=== PATIENT | female | born 1940 | race Caucasian/White ===

== ENCOUNTER → 2025-07-03 05:00 | Outpatient (REF) | payer MEDICARE, SELFPAY ==
[2025-07-03 09:32] LABS: Hematocrit 33.6 % (37-47); Hemoglobin 11.4 g/dL (12.0-15.0); Mean Corp Hgb Conc 33.9 g/dL (32-36); Mean Corpuscular Volume 91.8 fL (81-99); Mean Platelet Vol. 9.2 fl (6.2-12.0); Platelet Count 249 K/mm3 (150-450); RBC Distribution Width CV 14.0 % (11.6-14.6); RBC Distribution Width SD 47.1 fl (35.1-43.9); Red Blood Count 3.66 M/mm3 (4.2-5.4); White Blood Count 7.7 K/mm3 (4.4-11.0)
[2025-07-03 10:02] LABS: AST(SGOT) 18 U/L (<=31); Alanine Aminotransfer ALT/SGPT 10 U/L (<=34); Albumin, Serum 3.5 g/dL (3.4-4.8); Alkaline Phosphatase 119 U/L (35-104); Anion Gap 11 (5-15); BUN 17 mg/dL (4-19); BUN/Creat Ratio 10.0 RATIO (10-20); Calcium,Total 8.9 mg/dL (7.6-11.0); Carbon Dioxide 25.8 mmol/L (21.0-32.0); Chloride 101 mmol/L (98-108); Globulin 2.6 g/dL (2.2-4.2); Glucose 86 mg/dL (70-99); Potassium 3.3 mmol/L (3.3-5.1); Vitamin D,25 Hydroxy 26.6 ng/mL (30-100)
== END ==
LOC: OLS.ACW200 05:00
PROVIDERS: Visit Provider Family Medicine
DX: I63.81 Other cerebral infarction due to occlusion or stenosis of small artery (principal); R13.12 Dysphagia, oropharyngeal phase; E78.5 Hyperlipidemia, unspecified; D64.9 Anemia, unspecified
CPT/HCPCS: 36415; 80053; 82306; 83036; 84443; 85027

== ENCOUNTER → 2025-09-10 04:00 | Outpatient (REF) | payer MEDICARE, SELFPAY ==
--- OUTSIDE RECORDS SUMMARY | 2025-09-10 04:12 | XMS RPT_ITS | CCD ---
Author Organization [facility] CliniSyde Care Team Providers Care Protective Signal Installer Name Role Phone MONROE WU Unavailable Unavailable MONROE WU Unavailable Unavailable NO REFERRING DR Unavailable Unavailable YOKASTA WU Unavailable YOKASTA Montero Unavailable Charlene Celis MD Primary Care Provider SONU FERNANDEZ~[id number], SONU CHARLES Admitting Unavailable CHARLENE WALKER MD Primary Care Unavailable SONU FERNANDEZ~[id number], SONU CHARLES Attending Unavailable SONU FERNANDEZ~[id number], SONU CHARLES Attending Unavailable SONU FERNANDEZ, CHARLENE Primary Care Unavailable SONU FERNANDEZ~[id number], SONU CHARLES Admitting Unavailable SONU FERNANDEZ~[id number], SONU CHARLES Attending Unavailable CHARLENE WALKER MD Primary Care Unavailable SONU FERNANDEZ~[id number], SONU CHARLES Admitting Unavailable SONU FERNANDEZ~[id number], SONU CHARLES Attending Unavailable SONU FERNANDEZ, CHARLENE Primary Care Unavailable SONU FERNANDEZ~[id number], SONU CHARLES Admitting Unavailable Anthony Webster RN Unavailable Unavailable Bhujel, Mon Unavailable Unavailable Anthony Webster RN Unavailable Unavailable Bhujel, Mon Unavailable Unavailable Charlene Walker MD Primary Care Provider Marcelino Carrizales Attending Unavailable CHARLENE WALKER Primary Care Unavailable JAS FLORES Admitting Unavailable JADE GOODE Consulting Unavailable BITA HOLLAND Attending Unavailable KIARA MARIO Consulting Unavailable CAMILLE GOMEZ Consulting Unavailable RAQUEL LORD Consulting Unavailable CHARLENE WALKER Primary Care Unavailable CHET DAY Attending Unavaila KEYANNA Saleem Attending Unavailable KEYANNA CHARLES Referring Unavailable CHARLENE WALKER Primary Care Unavailable HUMAIRA BELL Attending Unavailable CHET DAY Referring Unavaila ble CHARLENE WALKER Primary Care Unavailable CHARLENE WALKER Primary Care Unavailable ADELINE LY Admitting Unavailable BITA HOLLAND Attending Unavailable Medications Current Medications Medication Drug Class(es) Dates Sig (Normalized) Sig (Original) cefdinir 300 mg oral capsule (7 sources) Cephalosporin Antibacterial Start: 01-06-2024 End: 01-10-2024 take 1 capsule by mouth twice daily cefdinir (Omnicef) 300 MG capsule Take 1 capsule (300 mg) by mouth 2 times daily for 8 doses. 8 capsule 0 01/06/2024 01/10/2024 Active ticagrelor 90 mg oral tablet (4 sources) Start: 06-06-2025 End: 06-06-2026 Completed/Discontinued Medications Medication Drug Class(es) Dates Sig (Normalized) Sig (Original) Acetaminophen (4 sources) Start: 04-18-2025 End: 04-20-2025 take 1 tablet by mouth every six hours as needed for pain and fever acetaminophen (Tylenol) tablet 650 mg Start: 12-29-2023 End: 12-30-2023 take 1 tablet by mouth every six hours as needed for pain and fever acetaminophen (Tylenol) tablet 650 mg acetaminophen 325 mg / oxyCODONE hydrochloride 5 mg oral tablet (6 sources) Opioid Agonist Start: 12-30-2023 End: 01-06-2024 take 1 tablet by mouth every six hours as needed for pain and pain 1 tablet, Oral, Every 6 hours PRN, moderate pain (4-6), severe pain (7-10), Starting on 12/31/23 at 2355, Maximum dose of acetaminophen is 4000 mg from all sources in 24 hours. amLODIPine 2.5 mg oral tablet (20 sources) Dihydropyridine Calcium Channel Kathy Start: 06-09-2025 End: 06-10-2025 Start: 04-19-2025 End: 04-20-2025 take 10 mg by mouth once daily 10 mg, Oral, Daily, Fir st dose (after last modification) on 04/19/25 at 2200 Start: 01-05-2024 End: 01-06-2024 amLODIPine (Norvasc) tablet 10 mg Start: 12-29-2023 End: 07-10-2025 amoxicillin 875 mg / clavulanate 125 mg oral tablet (8 sources) Penicillin-class Antibacterial Start: 01-04-2024 End: 01-06-2024 take 1 tablet by mouth in the morning amoxicillin-clavulanate (Augmentin) 875-125 MG tablet Take 1 tablet by mouth in the morning and 1 tablet before bedtime. Do all this for 8 doses. 8 tablet 0 01/04/2024 01/06/2024 Discontinued (Stop taking at discharge) Start: 01-04-2024 End: 01-04-2024 amoxicillin-clavulanate (Aug mentin) 875-125 MG per tablet 1 tablet Start: 12-30-2023 End: 01-09-2024 take 1 tablet by mouth twice daily amoxicillin-clavulanate (Augmentin) 875-125 MG tablet Take 1 tablet by mouth 2 times daily for 10 days. 20 tablet 0 12/30/2023 01/06/2024 Discontinued (Stop taking at discharge) ampicillin-sulbactam (Unasyn) 3,000 mg in sodium chloride 0.9 % 100 mL IVPB (Add-Partlow) (10 sources) Start: 01-04-2024 End: 01-06-2024 take 3000 mg intravenously every six hours ampicillin-sulbactam (Unasyn) 3,000 mg in sodium chloride 0.9 % 100 mL IVPB (Add-Partlow) Start: 12-31-2023 End: 01-04-2024 take 3000 mg intravenously every six hours ampicillin-sulbactam (Unasyn) 3,000 mg in sodium chloride 0.9 % 100 mL IVPB (Add-Partlow) Start: 12-31-2023 End: 12-31-2023 ampicillin-sulbactam (Unasyn ) 3,000 mg in sodium chloride 0.9 % 100 mL IVPB (Add-Partlow) Start: 12-29-2023 End: 12-30-2023 take 3000 mg intravenously every six hours ampicillin-sulbactam (Unasyn) 3,000 mg in sodium chloride 0.9 % 100 mL IVPB (Add-Partlow) Start: 12-28-2023 End: 12-28-2023 ampicillin-sulbactam (Unasyn ) 3,000 mg in sodium chloride 0.9 % 100 mL IVPB (Add-Partlow) Aspirin (20 sources) Platelet Aggregation Inhibitor, Nonsteroidal Anti-inflammatory Drug Start: 04-18-2025 End: 04-20-2025 aspirin EC tablet 81 mg Start: 01-03-2024 End: 01-06-2024 aspirin EC tablet 81 mg Start: 12-29-2023 End: 12-30-2023 take 81 mg by mouth once daily 81 mg, Oral, Daily, Fir st dose on Mon12/29/23 at 1330, Do not crush, chew, or split., , On hold since Mon12/29/2023 at 1329 until manually unheld atorvastatin 80 mg oral tabl et (13 sources) HMG-CoA Reductase Inhibitor Start: 05-26-2025 End: 06-10-2025 Start: 04-18-2025 End: 05-26-2025 bisacodyl 10 mg rectal suppository (4 sources) Stimulant Laxative Start: 05-23-2025 End: 06-10-2025 take 10 mg rectal route every twenty-four hours as needed for constipation Start: 04-18-2025 End: 04-20-2025 take 10 mg rectal route every twenty-fou r hours as needed for constipation calcium chloride 0.0014 meq/ ml / potassium chloride 0.004 meq/ml / sodium chloride 0.103 meq/ml / sodium lactate 0.028 meq/ml injectable solution (4 sources) Start: 06-09-2025 End: 06-10-2025 Start: 12-31-2023 End: 12-31-2023 lactated ringers bolus 500 m L cholecalciferol 0.025 mg ora l tablet (20 sources) Vitamin D Start: 05-24-2025 End: 06-10-2025 Start: 04-18-2025 End: 04-20-2025 take 1000 [IU] by mouth once daily 1,000 Units, Oral, Daily, First dose on Mon04/18/25 at 1620 Start: 01-01-2024 End: 01-06-2024 take 1000 [IU] by mouth once daily 1,000 Units, Oral, Daily, First dose on Mon01/01/24 at 0900 Start: 12-30-2023 End: 12-30-2023 take 1000 [IU] by mouth once daily 1,000 Units, Oral, Daily, First dose on Mon12/30/23 at 0900 clopidogrel 300 mg oral tabl et (14 sources) P2Y12 Platelet Inhibitor Start: 06-05-2025 End: 06-05-2025 Start: 04-19-2025 End: 06-05-2025 1 ml dexamethasone phosphate 10 mg/ml injection (2 sources) Corticosteroid Start: 12-29-2023 End: 12-30-2023 dexAMETHasone (PF) (Decadron) injection 8 mg 0.4 ml enoxaparin sodium 100 mg/ml prefilled syringe (6 sources) Low Molecular Weight Heparin Start: 05-24-2025 End: 06-10-2025 Start: 01-01-2024 End: 01-06-2024 enoxaparin (Lovenox) syringe 40 mg Start: 12-29-2023 End: 12-30-2023 inject 40 mg by subcutaneous injection every twenty-four hours 40 mg, SubCUTAneous, Every 24 hours scheduled (Daily), First dose on Mon12/29/23 at 0900, Indication of Use: Prophylaxis-DVT/PE, Indications: Prophylaxis of Venous Thromboembolism 1 ml ePHEDrine sulfate 50 mg/ml injection (4 sources) alpha-Adrenergic Agonist, beta-Adrenergic Agonist, Norepinephrine Releasing Agent Start: 05-29-2025 End: 05-29-2025 Start: 05-29-2025 End: 05-29-2025 escitalopram 10 mg oral tabl et (19 sources) Serotonin Reuptake Inhibitor Start: 05-24-2025 End: 06-10-2025 Start: 04-18-2025 End: 04-20-2025 take 10 mg by mouth once daily 10 mg, Oral, Daily, Fir st dose on Mon04/18/25 at 1620 1 ml hydrALAZINE hydrochloride 20 mg/ml injection (12 sources) Arteriolar Vasodilator Start: 05-29-2025 End: 06-10-2025 take 10 mg intravenously every four hours as needed for hypertension Start: 05-23-2025 End: 05-23-2025 Start: 01-05-2024 End: 01-06-2024 take 10 mg intravenously every four hours as needed for hypertension hydrALAZINE (Apresoline) injection 10 mg 1 ml HYDROmorphone hydrochloride 1 mg/ml cartridge (2 sources) Opioid Agonist Start: 01-02-2024 End: 01-02-2024 HYDROmorphone (Dilaudid) injection 0.5 mg iopamidol (Isovue-370) 76 % injection 75 mL (6 sources) Start: 04-18-2025 End: 04-18-2025 take 75 mL intravenously once as needed 75 mL, IntraVENous, IMG once PRN, contrast, Starting on Mon04/18/25 at 1422, For 1 dose Start: 12-31-2023 End: 12-31-2023 iopamidol (Isovue-370) 76 % injection 75 mL Start: 12-28-2023 End: 12-28-2023 iopamidol (Isovue-370) 76 % injection 75 mL labetalol hydrochloride 5 mg /ml injectable solution (12 sources) beta-Adrenergic Kathy Start: 05-24-2025 End: 06-10-2025 Start: 04-18-2025 End: 04-20-2025 take 10 mg intravenously every four hours as needed for hypertension 10 mg, IntraVENous, Every 4 hours PRN, high blood pressure, SBP > 170 and HR > 65, Starting on 04/19/25 at 1546 levothyroxine sodium 0.112 m g oral tablet (20 sources) l-Thyroxine Start: 05-24-2025 End: 06-10-2025 Start: 04-19-2025 End: 04-20-2025 take 112 ug by mouth once daily before breakfast 112 mcg, Oral, Daily before breakfast, First dose on 04/19/25 at 0600, Tube feeding (TF) interaction, obtain physician order to manage, recommend holding TF for 30 minutes before and after dose. Start: 01-01-2024 End: 01-06-2024 take 112 ug by mouth once daily before breakfast 112 mcg, Oral, Daily before breakfast, First dose on 01/01/24 at 0600, Tube feeding (TF) interaction, obtain physician order to manage, recommend holding TF for 30 minutes before and after dose. Start: 12-30-2023 End: 12-30-2023 take 112 ug by mouth once daily before breakfast 112 mcg, Oral, Daily before breakfast, First dose on Mon12/30/23 at 0600, Tube feeding (TF) interaction, obtain physician order to manage, recommend holding TF for 30 minutes before and after dose. losartan potassium 25 mg ora l tablet (6 sources) Angiotensin 2 Receptor Kathy Start: 05-25-2025 End: 06-06-2026 meclizine hydrochloride 12.5 mg oral tablet (20 sources) Antiemetic Start: 05-24-2025 End: 06-10-2025 Start: 04-18-2025 End: 04-20-2025 take 12.5 mg by mouth once daily 12.5 mg, Oral, Daily, First dose on Mon04/18/25 at 1620 Start: 01-01-2024 End: 01-06-2024 take 12.5 mg by mouth once daily 12.5 mg, Oral, Daily, First dose on Mon01/01/24 at 0800, Indications: Dizziness Start: 12-30-2023 End: 12-30-2023 meclizine (Antivert) tablet 25 mg meclizine (Antiv ert) 25 MG tablet Take 12.5 mg by mouth in the morning. Suspended 1 ml morphine sulfate 4 mg/ml cartridge (6 sources) Opioid Agonist Start: 01-01-2024 End: 01-01-2024 morphine injection 4 mg Start: 12-28-2023 End: 12-30-2023 take 2 mg intravenously every four hours as needed for pain morphine injection 2 mg 1 ml naloxone hydrochloride 0.4 mg/ml injection (4 sources) Opioid Antagonist Start: 12-31-2023 End: 01-06-2024 naloxone (Narcan) injection 0.4 mg Start: 12-29-2023 End: 12-30-2023 naloxone (Narcan) injection 0.4 mg 24 hr nicotine 0.875 mg/hr transdermal system (2 sources) Cholinergic Nicotinic Agonist Start: 04-18-2025 End: 04-20-2025 apply 1 dose transdermal route once daily at bedtime 1 patch, TransDERmal, Administer over 24 Hours, Daily, First dose on Mon04/18/25 at 1615, Apply new patch to nonhairy, clean, dry skin on the upper body or upper outer arm. Rotate patch sites. Notify Pharmacy if patient or provider prefers patch to be removed at bedtime and replaced in the morning. ondansetron 4 mg disintegrating oral tablet (9 sources) Serotonin-3 Receptor Antagonist Start: 05-23-2025 End: 06-10-2025 take 4 mg by mouth every eight hours as needed for nausea and vomiting Start: 01-04-2024 End: 01-11-2024 take 1 tablet by mouth every eight hours as needed for nausea and vomiting ondansetron ODT (Zofran-ODT) 4 MG disintegrating tablet Take 1 tablet (4 mg) by mouth every 8 hours as needed for nausea or vomiting for up to 7 days. 20 tablet 0 01/04/2024 01/11/2024 Active Start: 12-31-2023 End: 12-31-2023 ondansetron (Zofran) injecti on 4 mg Start: 12-28-2023 End: 12-28-2023 ondansetron (Zofran) injecti on 4 mg ondansetron ODT (Zofran-ODT) disintegrating tablet 4 mg (6 sources) Start: 04-18-2025 End: 04-20-2025 take 1 tablet by mouth every eight hours as needed for nausea and vomiting ondansetron ODT (Zofran-ODT) disintegrating tablet 4 mg Start: 12-31-2023 End: 01-06-2024 take 1 tablet by mouth every eight hours as needed for nausea and vomiting ondansetron ODT (Zofran-ODT) disintegrating tablet 4 mg Start: 12-29-2023 End: 12-30-2023 take 1 tablet by mouth every eight hours as needed for nausea and vomiting ondansetron ODT (Zofran-ODT) disintegrating tablet 4 mg pantoprazole 40 mg delayed release oral tablet (2 sources) Proton Pump Inhibitor Start: 05-24-2025 End: 06-10-2025 polyethylene glycol 3350 18133 mg powder for oral solution (6 sources) Osmotic Laxative Start: 05-23-2025 End: 06-10-2025 take 17 g by mouth every twenty-four hours as needed for constipation Start: 12-31-2023 End: 01-06-2024 take 17 g by mouth every twenty-four hours as needed for constipation polyethylene glycol (PEG) 3350 (Miralax) packet 17 g Start: 12-29-2023 End: 12-30-2023 take 17 g by mouth every twenty-four hours as needed for constipation 17 g, Oral, Daily PRN, constipation, Starting on Mon12/29/23 at 0414, 1st line for treatment of constipation - give scheduled if no bowel movement in past 24 hours. potassium bicarbonate 25 meq effervescent oral tablet (2 sources) Start: 06-02-2025 End: 06-02-2025 microencapsulated potassium chloride 10 meq extended release oral tablet (10 sources) Start: 06-03-2025 End: 06-03-2025 Start: 05-31-2025 End: 05-31-2025 Start: 05-29-2025 End: 05-29-2025 Start: 04-20-2025 End: 04-20-2025 take 1 [oz_av] by mouth once 40 mEq, Oral, Once, On Flores 04/20/25 at 0400, For 1 dose, Dissolve each packet in 4 ounces of water = 5 mEq per 1 oz fluid., Indications: Hypokalemia Start: 04-20-2025 End: 04-20-2025 40 mEq, IntraVENous, at 125 mL/hr, Administer over 4 Hours, Once, On Mon04/20/25 at 0400, For 1 dose, Max infusion rate = 10 mEq/hr predniSONE 10 mg oral tablet (6 sources) Start: 12-30-2023 End: 01-09-2024 take 5 tablets by mouth every other day, then take 4 tablets by mouth every other day, then take 3 tablets by mouth every other day, then take 2 tablets by mouth every other day, then take 1 tablet by mouth every other day predniSONE (Deltasone) 10 MG tablet Take 5 tablets (50 mg) by mouth every other day for 2 days, THEN 4 tablets (40 mg) every other day for 2 days, THEN 3 tablets (30 mg) every other day for 2 days, THEN 2 tablets (20 mg) every other day for 2 days, THEN 1 tablet (10 mg) every other day for 2 days. 15 tablet 0 12/30/2023 01/06/2024 Discontinued (Stop taking at discharge) 5 ml sodium chloride 9 mg/ml injection (20 sources) Start: 05-23-2025 End: 06-10-2025 Start: 05-23-2025 End: 06-10-2025 take 5-40 mL intravenously every twelve hours Start: 04-18-2025 End: 08-02-2025 take 50 mL intravenously every hour 50 mL/hr, IntraVENous, Continuous, Starting on Mon04/18/25 at 1300 Start: 04-18-2025 End: 04-20-2025 take 5-40 mL intravenously every twelve hours 5-40 mL, IntraVENous, Every 12 hours, First dose on Mon04/18/25 at 1300, For Line Patency: Peripheral IV = 5 mL; Midline or Central Line = 10 mL/lumen. If following IV push medication, administer flush at same rate as the IV push. Flush volume is determined by type of infusion therapy being given. For non-viscous solutions use: Peripheral IV = 5 mL Midline or Central Line = 10 mL/lumen For viscous solutions (i.e. blood components, parenteral nutrition, contrast media, or after obtaining blood sample) use: Peripheral IV = 10 mL Midline or Central Line = 20 mL/lumen Start: 04-18-2025 End: 04-20-2025 take 100 mL intravenously every hour as needed, then take 20 mL intravenously every hour as needed 5-250 mL/hr, IntraVENous, PRN, if patient receiving piggyback infusions and maintenance fluids are not ordered OR KVO fluids to protect IV site / prevent frequent line interruptions / long duration, Starting on Mon04/18/25 at 1256, For piggyback infusion, administer at same rate as piggyback for a total of 25 mL. Enter 25 mL into dose field and piggyback rate into rate field of order. If piggyback is infusing at a rate less than 100 mL/hr, enter 25 mL into dose field and 100 mL/hr into rate field of order. For KVO fluids, enter rate of 20 mL/hr or less into rate field of order. Start: 04-18-2025 End: 04-20-2025 5-40 mL, IntraVENous, PRN, l ine care, After every IV line use, Starting on Mon04/18/25 at 1256, For Line Patency: Peripheral IV = 5 mL; Midline or Central Line = 10 mL/lumen. If following IV push medication, administer flush at same rate as the IV push. Flush volume is determined by type of infusion therapy being given. For non-viscous solutions use: Peripheral IV = 5 mL Midline or Central Line = 10 mL/lumen For viscous solutions (i.e. blood components, parenteral nutrition, contrast media, or after obtaining blood sample) use: Peripheral IV = 10 mL Midline or Central Line = 20 mL/lumen Start: 12-31-2023 End: 01-06-2024 sodium chloride 0.9 % infusi on Start: 12-31-2023 End: 01-06-2024 sodium chloride 0.9% (NS) fl ush 10 mL Start: 12-28-2023 End: 12-28-2023 sodium chloride 0.9 % bolus 1,000 mL (2 sources) Start: 05-30-2025 End: 05-30-2025 (4 sources) Start: 05-30-2025 End: 05-30-2025 Start: 05-23-2025 End: 05-23-2025 (2 sources) Start: 05-24-2025 End: 05-24-2025 (6 sources) Start: 05-24-2025 End: 06-10-2025 take 10 mg by mouth every six hours as needed for nausea and vomiting [Order 1 Start] Name: prochlorperazine (Compazine) tablet 10 mg Signed Summary: 10 mg, Oral, Every 6 hours PRN, nausea, vomiting, 2nd line, Starting on 05/24/25 at 1637 [Order 1 End] [Order 2 Start] Name: prochlorperazine (Compazine) injection 10 mg Signed Summary: 10 mg, IntraVENous, Every 6 hours PRN, nausea, vomiting, Starting on 05/24/25 at 1637, Give IV if patient is unable to take orally. Give IM if patient is unable to take orally and does not have IV access. [Order 2 End] [Order 3 Start] Name: prochlorperazine (Compazine) suppository 25 mg Signed Summary: 25 mg, Rectal, Every 12 hours PRN, nausea, vomiting, Starting on 05/24/25 at 1637, Give TX if patient is unable to take orally or receive by injection. [Order 3 End] Start: 05-24-2025 End: 06-10-2025 [Order 1 Start] Name: aspiri n EC tablet 81 mg Signed Summary: 81 mg, Oral, Daily, First dose on 05/24/25 at 0900, Do NOT administer if bleed present on follow up CT-Head. Do not crush, chew, or split. [Order 1 End] [Order 2 Start] Name: aspirin suppository 300 mg Signed Summary: 300 mg, Rectal, Daily, First dose on 05/24/25 at 0900, Do NOT administer if bleed present on follow up CT-Head. Use suppository if NPO or failed swallow screen. [Order 2 End] Start: 05-24-2025 End: 06-10-2025 take 650 mg by mouth every six hours as needed for pain and fever and pain and pain [Order 1 Start] Name: acetaminophen (Tylenol) tablet 650 mg Signed Summary: 650 mg, Oral, Every 6 hours PRN, mild pain (1-3), fever, moderate pain (4-6), severe pain (7-10), For temp greater than 100.4 F (38 C), Starting on 05/24/25 at 0317, Maximum dose of acetaminophen is 4000 mg from all sources in 24 hours. [Order 1 End] [Order 2 Start] Name: acetaminophen (Tylenol) suppository 650 mg Signed Summary: 650 mg, Rectal, Every 6 hours PRN, fever, For temp greater than 100.4 F (38 C), Starting on 05/24/25 at 0317, Administer if oral route cannot be used. Maximum dose of acetaminophen is 4000 mg from all sources in 24 hours. 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] Onset: 04-18-2025 04-18-2025 Chronic Aortic; peripheral; and visceral artery aneurysms (4 sources) Penetrating ulcer of aorta; Translations: [Aortic aneurysm of unspecified site, without rupture] Onset: 05-23-2025 05-23-2025 Chronic Blindness and vision defects (15 sources) Visual impairment; Translations: [Unqualified visual loss, left eye, normal vision right eye] Onset: 04-17-2025 04-17-2025 Chronic Blindness and vision defects (18 sources) Sudden visual loss of left eye; Translations: [Sudden visual loss, left eye] Onset: 04-18-2025 04-18-2025 Episodic Essential hypertension (20 sources) Hypertensive disorder; Translations: [Essential (primary) hypertension] Onset: 01-01-2024 01-01-2024 Chronic Hypertension with complications and secondary hypertension (4 sources) Renovascular hypertension; 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] Onset: 05-23-2025 06-05-2025 Chronic Occlusion or stenosis of precerebral arteries (7 sources) Bilateral stenosis of carotid arteries; Translations: [Occlusion and stenosis of bilateral carotid arteries] Onset: 05-23-2025 05-27-2025 Chronic Other connective tissue disease (7 sources) Neurological symptom; Translations: [Unspecified symptoms and signs involving the nervous system] Onset: 05-24-2025 05-24-2025 Episodic Other connective tissue disease (2 sources) Unspecified symptoms and signs involving the nervous system; Translations: [Unspecified symptoms and signs involving the nervous system] Onset: 05-23-2025 Episodic Other eye disorders (2 sources) Ischemic optic neuropathy, right eye; Translations: [Ischemic optic neuropathy, right eye] Onset: 05-23-2025 Chronic Other liver diseases (2 sources) Abnormal levels of other serum enzymes; Translations: [ABNORMAL LEVELS OTHER SERUM ENZYMES] Onset: 03-24-2025 Episodic Retinal detachments; defects; vascular occlusion; and retinopathy (12 sources) Occlusion of left central retinal artery; Translations: [Central retinal artery occlusion, left eye] Onset: 04-18-2025 04-18-2025 Chronic Unclassified (1 source) Resistant hypertension; 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] Onset: 01-01-2024 Past or Other Problems Problem Classification Problem Date Documented Da te Episodic/Chronic Nonspecific chest pain (3 sources) Other chest pain; Translations: [OTHER CHEST PAIN] Onset: 05-17-2017 Episodic Other lower respiratory disease (2 sources) Shortness of breath; Translations: [SHORTNESS OF BREATH] Onset: 01-03-2025 Episodic Other lower respiratory disease (1 source) Dyspnea, unspecified; Translations: [DYSPNEA UNSPECIFIED] Onset: 01-03-2025 Episodic Screening or history of mental health and substance abuse (1 source) Personal history of nicotine dependence; Translations: [PERSONAL HISTORY OF ERIBERTO] Onset: 05-17-2017 Episodic Skin and subcutaneous tissue infections (20 sources) Cellulitis of submental space ; Translations: [Cellulitis of face] Onset: 12-29-2023 12-29-2023 Episodic Unclassified (1 source) Resistant hypertension; 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 Martha mentions that Diana is in [facility]; care team updated. [facility] 36on 07-04-2025 36 Left another message. [facility] 36on 07-03-2025 36 Left message with Roman liu checking in with her and Diana. Made her aware of PO visit needed with Dr. Vitale now that Diana is discharged from [facility]. Advised to call the office back to schedule. S/p left CEA 05/29/25 [facility] [id number] 06-12-2025 [id number] [facility] [id number] 06-10-2025 [id number] [facility] [id number] Jail/SNF - [address] [id number] Patient/Family Choice [facility] [phone] [facility] [id number] MAR transmitted to [facility] via [employer] per TCC request. Electronically signed by EMMA [facility] BASIC METABOLIC PANELon 09-2 Anion gap [Moles/Vol] 5 mmol/L Normal 3-13 [facility] Comment on above: Performed By: #### L AB113, [id number], LAB15 ####Spun Paste Machine Operator: SHAYY MARROQUIN ([phone])[facility] ([address] Calcium [Mass/Vol] 8.5 mg/dL Low 8.8-10.0 [facility] Comment on above: Performed By: #### L AB113, [id number], LAB15 ####Spun Paste Machine Operator: SHAYY MARROQUIN ([phone])[facility] ([facility])[address] [place] [address] Chloride [Moles/Vol] 106 mmol/L Normal 98-107 [facility] Comment on above: Performed By: #### L AB113, [id number], LAB15 ####Spun Paste Machine Operator: SHAYY MARROQUIN ([phone])[facility])[address] [place] [address] CO2 [Moles/Vol] 23 mmol/L Normal 23-31 [facility] Comment on above: Performed By: #### L AB113, [id number], LAB15 ####Spun Paste Machine Operator: SHAYY MARROQUIN ([phone])[facility])[address] [place] [address] Creatinine [Mass/Vol] 1.33 mg/dL High 0.57-1.11 [facility] Comment on above: Performed By: #### L AB113, [id number], LAB15 ####Spun Paste Machine Operator: SHAYY MARROQUIN ([phone])[address] GLOMERULAR FILTRATION RATE ML/MIN/1.73 SQ M.PREDICTED 40.0 mL/min/1.73m*2 Low >60.0 [facility] Comment on above: Result Comment: Calc ulation based on the Chronic Kidney Disease Epidemiology Collaboration (CKD-EPI) equation refit without adjustment for race Performed By: #### L AB113, [id number], LAB15 ####Spun Paste Machine Operator: SHAYY MARROQUIN ([phone])[facility])[address] [place] [address] Glucose [Mass/Vol] 82 mg/dL Normal 82-115 [facility] Comment on above: Performed By: #### L AB113, [id number], LAB15 ####Spun Paste Machine Operator: SHAYY MARROQUIN ([phone])[facility])[address] [place] [address] Potassium [Moles/Vol] 3.7 mmol/L Normal 3.5-5.1 [facility] Comment on above: Result Comment: [facility] potassium values may be up to 0.5 mmol/L lower than serum values. Performed By: #### L AB113, [id number], LAB15 ####Spun Paste Machine Operator: SHAYY MARROQUIN ([phone])[facility] ([facility])[address] [place] [address] Sodium [Moles/Vol] 134 mmol/L Low 136-145 [facility] Comment on above: Performed By: #### L AB113, [id number], LAB15 ####Spun Paste Machine Operator: SHAYY MARROQUIN ([phone])[facility] ([facility])[address] [place] [address] Urea nitrogen [Mass/Vol] 21 mg/dL Normal - [facility] Comment on above: Performed By: #### L AB113, [id number], LAB15 ####Spun Paste Machine Operator: SHAYY MARROQUIN ([phone])[facility] ([facility])[address] [place] [address] Basic metabolic 1998 panelon 06-10-2025 Anion gap [Moles/Vol] 5 mmol/L 3 - 13 mmol/L [facility] Calcium [Mass/Vol] 8.5 mg/dL Low 8.8 - 10. 0 mg/dL [facility] Chloride [Moles/Vol] 106 mmol/L 98 - 10 7 mmol/L [facility] CO2 [Moles/Vol] 23 mmol/L 23 - 31 mmol/L [facility] Creatinine [Mass/Vol] 1.33 mg/dL High 0.57 - 1.11 mg/dL [facility] GFR/1.73 sq M.predicted (S/P/Bld) [Vol rate/Area] 40 mL/min Low - PINF [facility] Glucose [Mass/Vol] 82 mg/dL 82 - 115 mg/dL [facility] Interpretation and review of laboratory results Abnormal [facility] Potassium [Moles/Vol] 3.7 mmol/L 3.5 - 5.1 mmol/L [facility] Sodium [Moles/Vol] 134 mmol/L Low 136 - 145 mmol/L [facility] Urea nitrogen [Mass/Vol] 21 mg/dL 9 - 23 mg/dL [facility] CBC W Auto Differential pane l (Bld)on 06-10-2025 Basophils (Bld) [#/Vol] 0 10*3/uL 0.0 - 0.2 10*3/uL [facility] Basophils/100 WBC (Bld) 0.5 % 0.0 - 2.0 % [facility] Eosinophils (Bld) [#/Vol] 0.4 10*3/uL 0.0 - 0.5 10*3/uL [facility] Eosinophils/100 WBC (Bld) 5.3 % 0.0 - 6.0 % [facility] Erythrocyte distribution width (RBC) [Ratio] 13.3 % 11.5 - 15.0 % [facility] Hematocrit (Bld) [Volume fraction] 34.5 % Low 35.0 - 47.0 % [facility] Hemoglobin (Bld) [Mass/Vol] 11.4 g/dL Low 11.7 - 16.0 g/dL [facility] Immature granulocytes (Bld) [#/Vol] 0.1 10*3/uL High NINF - 0.1 10*3/uL [facility] Immature granulocytes/100 WBC (Bld) 0.6 % 0.0 - 2.0 % [facility] Interpretation and review of laboratory results Abnormal [facility] Lymphocytes (Bld) [#/Vol] 1.4 10*3/uL 1.0 - 4.3 10*3/uL [facility] Lymphocytes/100 WBC (Bld) 17.4 % 15.0 - 45.0 % [facility] MCH (RBC) [Entitic mass] 30.8 pg 26.0 - 34.0 pg [facility] MCHC (RBC) [Mass/Vol] 33 % 30.5 - 36.0 % [facility] MCV (RBC) [Entitic vol] 93.2 fL 77.0 - 99.0 fL [facility] Monocytes (Bld) [#/Vol] 0.8 10*3/uL 0.0 - 0.9 10*3/uL [facility] Monocytes/100 WBC (Bld) 10 % 5.0 - 13.0 % [facility] Neutrophils (Bld) [#/Vol] 5.3 10*3/uL 1.8 - 7.5 10*3/uL [facility] Neutrophils/100 WBC (Bld) 66.2 % 38.0 - 82.0 % [facility] Nucleated RBC/100 WBC (Bld) [Ratio] 0 % [facility] Platelet mean volume (Bld) [Entitic vol] 9.2 fL 9.0 - 12.7 fL [facility] Platelets (Bld) [#/Vol] 239 10*3/uL 140 - 440 10*3/uL [facility] RBC (Bld) [#/Vol] 3.7 10*6/uL Low 3.80 - 5.20 10*6/uL [facility] WBC (Bld) [#/Vol] 8 10*3/uL 3.6 - 10.7 10*3/uL [facility] CBC WITH AUTO DIFFERENTIALon 06-10-2025 Basophils (Bld) [#/Vol] 0.0 10*3/uL Normal 0.0-0.2 [facility] Comment on above: Performed By: #### L [id number] ####Spun Paste Machine Operator: SHAYY MARROQUIN ([phone])[facility])[address] [place] [address] Basophils/100 WBC (Bld) 0.5 % Normal 0.0-2.0 [facility] Comment on above: Performed By: #### L [id number] ####Spun Paste Machine Operator: SHAYY MARROQUIN ([phone])[facility] ([facility])[address] [place] [address] [place] Eosinophils (Bld) [#/Vol] 0.4 10*3/uL Normal 0.0-0.5 [facility] Comment on above: Performed By: #### L [id number] ####Spun Paste Machine Operator: SHAYY MARROQUIN ([phone])[facility] ([facility])[address] [place] [address] Eosinophils/100 WBC (Bld) 5.3 % Normal 0.0-6.0 [facility] Comment on above: Performed By: #### L [id number] ####Spun Paste Machine Operator: SHAYY MARROQUIN ([phone])[facility] ([facility])[address] [place] [address] [place] Erythrocyte distribution width (RBC) [Ratio] 13.3 % Normal 11.5-15.0 [facility] Comment on above: Performed By: #### L [id number] ####Spun Paste Machine Operator: SHAYY [id number])[facility] ([facility] Hematocrit (Bld) [Volume fraction] 34.5 % Low 35.0-47.0 [facility] Comment on above: Performed By: #### L [id number] ####Spun Paste Machine Operator: SHAYY MARROQUIN ([phone])[facility])[address] [place] [address] Hemoglobin (Bld) [Mass/Vol] 11.4 g/dL Low 11.7-16.0 [facility] Comment on above: Performed By: #### L [id number] ####Spun Paste Machine Operator: SHAYY MARROQUIN ([phone])[facility])[address] [place] [address] IMMATURE GRANS % 0.6 % Normal 0.0-2.0 [facility] Comment on above: Performed By: #### L [id number] ####Spun Paste Machine Operator: SHAYY MARROQUIN ([phone])[facility])[address] [place] [address] IMMATURE GRANS ABSOLUTE 0.1 10*3/uL High <0.1 [facility] Comment on above: Performed By: #### L [id number] ####Spun Paste Machine Operator: SHAYY MARROQUIN ([phone])[facility])[address] [place] [address] Lymphocytes (Bld) [#/Vol] 1.4 10*3/uL Normal 1.0-4.3 [facility] Comment on above: Performed By: #### L [id number] ####Spun Paste Machine Operator: SHAYY MARROQUIN ([phone])[facility])[address] [place] [address] Lymphocytes/100 WBC (Bld) 17.4 % Normal 15.0-45.0 [facility] Comment on above: Performed By: #### L [id number] ####Spun Paste Machine Operator: SHAYY MARROQUIN ([phone])[facility])[address] [place] [address] MCH (RBC) [Entitic mass] 30.8 pg Normal 26.0-34.0 [facility] Comment on above: Performed By: #### L [id number] ####Spun Paste Machine Operator: SHAYY MARROQUIN ([phone])[facility])[address] [place] [address] MCHC 33.0 % Normal 30.5-36.0 [facility] Comment on above: Performed By: #### L [id number] ####Spun Paste Machine Operator: SHAYY MARROQUIN ([phone])[facility])[address] [place] [address] MCV (RBC) [Entitic vol] 93.2 fL Normal 77.0-99.0 [facility] Comment on above: Performed By: #### L [id number] ####Spun Paste Machine Operator: SHAYY MARROQUIN ([phone])[facility])[address] [place] [address] Monocytes (Bld) [#/Vol] 0.8 10*3/uL Normal 0.0-0.9 [facility] Comment on above: Performed By: #### L [id number] ####Spun Paste Machine Operator: SHAYY MARROQUIN ([phone])[facility])[address] [place] [address] Monocytes/100 WBC (Bld) 10.0 % Normal 5.0-13.0 [facility] Comment on above: Performed By: #### L [id number] ####Spun Paste Machine Operator: SHAYY MARROQUIN ([phone])[facility])[address] [place] [address] NEUTROPHILS ABSOLUTE 5.3 10*3/uL Normal 1.8-7.5 [facility] Comment on above: Performed By: #### L [id number] ####Spun Paste Machine Operator: SHAYY MARROQUIN ([phone])[facility])[address] [place] [address] Neutrophils/100 WBC (Bld) 66.2 % Normal 38.0-82.0 [facility] Comment on above: Performed By: #### L [id number] ####Spun Paste Machine Operator: SHAYY MARROQUIN ([phone])[facility] ([facility])[address] [place] [address] NRBC 0.0 /100 WBCs Normal 0.0-2.0 [facility] Comment on above: Performed By: #### L [id number] ####Spun Paste Machine Operator: SHAYY MARROQUIN ([phone])[facility] ([facility])[address] [place] [address] Platelet mean volume (Bld) [Entitic vol] 9.2 fL Normal 9.0-12.7 [facility] Comment on above: Performed By: #### L [id number] ####Spun Paste Machine Operator: SHAYY MARROQUIN ([phone])[facility] ([facility])[address] [place] [address] Platelets (Bld) [#/Vol] 239 10*3/uL Normal 140-440 [facility] Comment on above: Performed By: #### L [id number] ####Spun Paste Machine Operator: SHAYY MARROQUIN ([phone])[facility] ([facility])[address] [place] [address] RBC (Bld) [#/Vol] 3.70 10*6/uL Low 3.80-5.20 [facility] Comment on above: Performed By: #### L [id number] ####Spun Paste Machine Operator: SHAYY MARROQUIN ([phone])[facility] ([facility])[address] [place] [address] WBC (Bld) [#/Vol] 8.0 10*3/uL Normal 3.6-10.7 [facility] Comment on above: Performed By: #### L [id number] ####Spun Paste Machine Operator: SHAYY MARROQUIN ([phone])[facility] ([facility])[address] [place] [address] Laboratory - Chemistry and C hemistry - challengeon 06-10-2025 Magnesium [Mass/Vol] 1.9 mg/dL 1.6 - 2 .6 mg/dL [facility] MAGNESIUMon 06-10-2025 Magnesium [Mass/Vol] 1.9 mg/dL Normal 1.6-2.6 [facility] Comment on above: Result Comment: ORDE R COMMENTS:Higher values can be expected in females during menses. Performed By: #### L AB113, [id number], LAB15 ####Spun Paste Machine Operator: SHAYY MARROQUIN ([phone])[facility] ([facility])[address] [place] [address] [place] Magnesium [Mass/Vol]on 06-10 [facility] No Panel Informationon 06-10 Interpretation and review of laboratory results Normal [facility] Nursing Noteon 06-10-2025 Nursing Note Report called to [facility] , transportation here to take pt. All belongings packed and with pt. Iv removed. Packet given to transportation. Normal [facility] Nursing Note Tried to call [facility] fo r report, got busy signal. Will try again in a few minutes Normal [facility] PHOSPHORUSon 06-10-2025 Phosphate [Mass/Vol] 3.9 mg/dL Normal 2.3-4.7 [facility] Comment on above: Performed By: #### L AB113, [id number], LAB15 ####Spun Paste Machine Operator: SHAYY MARROQUIN ([phone])[facility] ([facility])[address] [place] [address] [place] Phosphate [Moles/Vol]on 05-20 Phosphate [Mass/Vol] 3.9 mg/dL 2.3 - 4 .7 mg/dL [facility] Progress Noteon 06-10-2025 Progress Note Normal [facility] Progress Note Normal [facility] Progress Note Normal [facility] Progress Note Nutrition update com pleted. Chart reviewed. Patient to be monitored and followed by the diet natural gas technician. VICK Beckman Normal [facility] [id number] 06-09-2025 [id number] Normal [facility] BASIC METABOLIC PANELon 05-20 Anion gap [Moles/Vol] 7 mmol/L Normal 3-13 [facility] Comment on above: Performed By: #### L AB113, [id number], LAB15 ####Spun Paste Machine Operator: SHAYY MARROQUIN ([phone])[facility] ([facility])[address] [place] [address] [place] Calcium [Mass/Vol] 8.5 mg/dL Low 8.8-10.0 [facility] Comment on above: Performed By: #### Vincent AB113, SAP386, LAB15 ####Spun Paste Machine Operator: SHAYY MARROQUIN ([phone])[facility] ([facility])[address] [place] [address] Chloride [Moles/Vol] 107 mmol/L Normal 98-107 [facility] Comment on above: Performed By: #### Vincent AB113, [id number], LAB15 ####Spun Paste Machine Operator: SHAYY MARROQUIN ([phone])[facility] ([facility])[address] [place] [address] CO2 [Moles/Vol] 23 mmol/L Normal 23-31 [facility] Comment on above: Performed By: #### Vincent AB113, [id number], LAB15 ####Spun Paste Machine Operator: SHAYY MARROQUIN ([phone])[facility] ([facility])[address] [place] [address] Creatinine [Mass/Vol] 1.55 mg/dL High 0.57-1.11 [facility] Comment on above: Performed By: #### Vincent ABAllan, [id number], LAB15 ####Spun Paste Machine Operator: SHAYY MARROQUIN ([phone])[facility] ([facility])[address] [place] [address] GLOMERULAR FILTRATION RATE ML/MIN/1.73 SQ M.PREDICTED 33.3 mL/min/1.73m*2 Low >60.0 [facility] Comment on above: Result Comment: Calc ulation based on the Chronic Kidney Disease Epidemiology Collaboration (CKD-EPI) equation refit without adjustment for race Performed By: #### L AB113, [id number], LAB15 ####Spun Paste Machine Operator: SHAYY MARROQUIN ([phone])[facility])[address] [place] [address] Glucose [Mass/Vol] 90 mg/dL Normal 82-115 [facility] Comment on above: Performed By: #### Vincent AB113, [id number], LAB15 ####Spun Paste Machine Operator: SHAYY [phone])[facility] ([facility])[address] [place] [address] Potassium [Moles/Vol] 3.6 mmol/L Normal 3.5-5.1 [facility] Comment on above: Result Comment: [facility] potassium values may be up to 0.5 mmol/L lower than serum values. Performed By: #### L AB113, [id number], LAB15 ####Spun Paste Machine Operator: SHAYY MARROQUIN ([phone])[facility] ([facility])[address] [place] [address] Sodium [Moles/Vol] 137 mmol/L Normal 136-145 [facility] Comment on above: Performed By: #### L AB113, [id number], LAB15 ####Spun Paste Machine Operator: SHAYY MARROQUIN ([phone])[facility] ([facility])[address] [place] [address] Urea nitrogen [Mass/Vol] 20 mg/dL Normal 9-23 [facility] Comment on above: Performed By: #### L AB113, [id number], LAB15 ####Spun Paste Machine Operator: SHAYY MARROQUIN ([phone])[facility] ([facility])[address] [place] [address] Basic metabolic 1998 panelon 06-09-2025 Anion gap [Moles/Vol] 7 mmol/L 3 - 13 mmol/L [facility] Calcium [Mass/Vol] 8.5 mg/dL Low 8.8 - 10. 0 mg/dL [facility] Chloride [Moles/Vol] 107 mmol/L 98 - 10 7 mmol/L [facility] CO2 [Moles/Vol] 23 mmol/L 23 - 31 mmol/L [facility] Creatinine [Mass/Vol] 1.55 mg/dL High 0.57 - 1.11 mg/dL [facility] GFR/1.73 sq M.predicted (S/P/Bld) [Vol rate/Area] 33.3 mL/min Low - PINF [facility] Glucose [Mass/Vol] 90 mg/dL 82 - 115 mg/dL [facility] Interpretation and review of laboratory results Abnormal [facility] Potassium [Moles/Vol] 3.6 mmol/L 3.5 - 5.1 mmol/L [facility] Sodium [Moles/Vol] 137 mmol/L 136 - 145 mmol/L [facility] Urea nitrogen [Mass/Vol] 20 mg/dL 9 - 23 mg/dL [facility] CBC W Auto Differential pane l (Bld)on 06-09-2025 Basophils (Bld) [#/Vol] 0 10*3/uL 0.0 - 0.2 10*3/uL [facility] Basophils/100 WBC (Bld) 0.4 % 0.0 - 2.0 % [facility] Eosinophils (Bld) [#/Vol] 0.4 10*3/uL 0.0 - 0.5 10*3/uL [facility] Eosinophils/100 WBC (Bld) 4.6 % 0.0 - 6.0 % [facility] Erythrocyte distribution width (RBC) [Ratio] 13.5 % 11.5 - 15.0 % [facility] Hematocrit (Bld) [Volume fraction] 36.1 % 35.0 - 47.0 % [facility] Hemoglobin (Bld) [Mass/Vol] 11.9 g/dL 11.7 - 16.0 g/dL [facility] Immature granulocytes (Bld) [#/Vol] 0 10*3/uL NINF - 0.1 10*3/uL [facility] Immature granulocytes/100 WBC (Bld) 0.4 % 0.0 - 2.0 % [facility] Interpretation and review of laboratory results Abnormal [facility] Lymphocytes (Bld) [#/Vol] 1.2 10*3/uL 1.0 - 4.3 10*3/uL [facility] Lymphocytes/100 WBC (Bld) 13.1 % Low 15.0 - 45.0 % [facility] MCH (RBC) [Entitic mass] 31.2 pg 26.0 - 34.0 pg [facility] MCHC (RBC) [Mass/Vol] 33 % 30.5 - 36.0 % [facility] MCV (RBC) [Entitic vol] 94.8 fL 77.0 - 99.0 fL [facility] Monocytes (Bld) [#/Vol] 0.9 10*3/uL 0.0 - 0.9 10*3/uL [facility] Monocytes/100 WBC (Bld) 9.8 % 5.0 - 13.0 % [facility] Neutrophils (Bld) [#/Vol] 6.4 10*3/uL 1.8 - 7.5 10*3/uL [facility] Neutrophils/100 WBC (Bld) 71.7 % 38.0 - 82.0 % [facility] Nucleated RBC/100 WBC (Bld) [Ratio] 0 % [facility] Platelet mean volume (Bld) [Entitic vol] 9.5 fL 9.0 - 12.7 fL [facility] Platelets (Bld) [#/Vol] 246 10*3/uL 140 - 440 10*3/uL [facility] RBC (Bld) [#/Vol] 3.81 10*6/uL 3.80 - 5.20 10*6/uL [facility] WBC (Bld) [#/Vol] 8.9 10*3/uL 3.6 - 10.7 10*3/uL [facility] CBC WITH AUTO DIFFERENTIALon 06-09-2025 Basophils (Bld) [#/Vol] 0.0 10*3/uL Normal 0.0-0.2 [facility] Comment on above: Performed By: #### L [id number] ####Spun Paste Machine Operator: SHAYY MARROQUIN ([phone])[facility])[address] [place] [address] Basophils/100 WBC (Bld) 0.4 % Normal 0.0-2.0 [facility] Comment on above: Performed By: #### L [id number] ####Spun Paste Machine Operator: SHAYY MARROQUIN ([phone])[facility])[address] [place] [address] [place] Eosinophils (Bld) [#/Vol] 0.4 10*3/uL Normal 0.0-0.5 [facility] Comment on above: Performed By: #### L [id number] ####Spun Paste Machine Operator: SHAYY MARROQUIN ([phone])[facility])[address] [place] [address] [place] Eosinophils/100 WBC (Bld) 4.6 % Normal 0.0-6.0 [facility] Comment on above: Performed By: #### L [id number] ####Spun Paste Machine Operator: SHAYY [phone])[facility])[address] [place] [address] Erythrocyte distribution width (RBC) [Ratio] 13.5 % Normal 11.5-15.0 [facility] Comment on above: Performed By: #### L [id number] ####Spun Paste Machine Operator: SHAYY MARROQUIN ([phone])[facility])[address] [place] [address] Hematocrit (Bld) [Volume fraction] 36.1 % Normal 35.0-47.0 [facility] Comment on above: Performed By: #### L [id number] ####Spun Paste Machine Operator: SHAYY MARROQUIN ([phone])[facility])[address] [place] [address] Hemoglobin (Bld) [Mass/Vol] 11.9 g/dL Normal 11.7-16.0 [facility] Comment on above: Performed By: #### L [id number] ####Spun Paste Machine Operator: SHAYY MARROQUIN ([phone])[facility] ([facility])[address] [place] [address] IMMATURE GRANS % 0.4 % Normal 0.0-2.0 [facility] Comment on above: Performed By: #### L [id number] ####Spun Paste Machine Operator: SHAYY MARROQUIN ([phone])[facility])[address] [place] [address] IMMATURE GRANS ABSOLUTE 0.0 10*3/uL Normal <0.1 [facility] Comment on above: Performed By: #### L [id number] ####Spun Paste Machine Operator: SHAYY MARROQUIN ([phone])[facility])[address] [place] [address] [place] Lymphocytes (Bld) [#/Vol] 1.2 10*3/uL Normal 1.0-4.3 [facility] Comment on above: Performed By: #### L [id number] ####Spun Paste Machine Operator: SHAYY MARROQUIN ([phone])[facility])[address] [place] [address] [place] Lymphocytes/100 WBC (Bld) 13.1 % Low 15.0-45.0 [facility] Comment on above: Performed By: #### L [id number] ####Spun Paste Machine Operator: SHAYY MARROQUIN ([phone])[facility])[address] [place] [address] MCH (RBC) [Entitic mass] 31.2 pg Normal 26.0-34.0 [facility] Comment on above: Performed By: #### L [id number] ####Spun Paste Machine Operator: SHAYY MARROQUIN ([phone])[facility])[address] [place] [address] MCHC 33.0 % Normal 30.5-36.0 [facility] Comment on above: Performed By: #### L [id number] ####[employer]un P[employer] Machine Operator: SHAYY MARROQUIN ([phone])[facility])[address] [place] [address] MCV (RBC) [Entitic vol] 94.8 fL Normal 77.0-99.0 [facility] Comment on above: Performed By: #### L [id number] ####[employer] Operator: SHAYY MARROQUIN ([phone])[facility])[address] [place] [address] Monocytes (Bld) [#/Vol] 0.9 10*3/uL Normal 0.0-0.9 [facility] Comment on above: Performed By: #### L [id number] ####[employer] Operator: SHAYY MARROQUIN ([phone])[facility])[address] [place] [address] Monocytes/100 WBC (Bld) 9.8 % Normal 5.0-13.0 [facility] Comment on above: Performed By: #### L [id number] ####[employer] Operator: SHAYY MARROQUIN ([phone])[facility])[address] [place] [address] NEUTROPHILS ABSOLUTE 6.4 10*3/uL Normal 1.8-7.5 [facility] Comment on above: Performed By: #### L [id number] ####[employer] Operator: SHAYY MARROQUIN ([phone])[facility])[address] [place] [address] Neutrophils/100 WBC (Bld) 71.7 % Normal 38.0-82.0 [facility] Comment on above: Performed By: #### L [id number] ####[employer] Operator: SHAYY MARROQUIN ([phone])[facility])[address] [place] [address] NRBC 0.0 /100 WBCs Normal 0.0-2.0 [facility] Comment on above: Performed By: #### L [id number] ####[employer] Operator: SHAYY MARROQUIN ([phone])[facility])[address] [place] [address] Platelet mean volume (Bld) [Entitic vol] 9.5 fL Normal 9.0-12.7 [facility] Comment on above: Performed By: #### L [id number] ####[employer] Operator: SHAYY MARROQUIN ([phone])[facility])[address] [place] [address] Platelets (Bld) [#/Vol] 246 10*3/uL Normal 140-440 [facility] Comment on above: Performed By: #### L [id number] ####Spun Paste Machine Operator: SHAYY MARROQUIN ([phone])[facility])[address] [place] [address] RBC (Bld) [#/Vol] 3.81 10*6/uL Normal 3.80-5.20 [facility] Comment on above: Performed By: #### L [id number] ####Spun Paste Machine Operator: SHAYY MARROQUIN ([phone])[facility])[address] [place] [address] WBC (Bld) [#/Vol] 8.9 10*3/uL Normal 3.6-10.7 [facility] Comment on above: Performed By: #### L [id number] ####Spun Paste Machine Operator: SHAYY MARROQUIN ([phone])[facility] ([facility])[address] [place] [address] COMPLETE URINALYSIS WITH REF SHAWN TO CULTUREon 06-09-2025 BACTERIA (#/HPF) IN URINE Negative Normal Negative [facility] Comment on above: Performed By: #### L [id number] ####Spun Paste Machine Operator: SHAYY MARROQUIN ([phone])[facility])[address] [place] [address] BILIRUBIN, TOTAL PRESENCE IN URINE Negative Normal Negative [facility] Comment on above: Performed By: #### L [id number] ####Spun Paste Machine Operator: SHAYY MARROQUIN ([phone])[facility])[address] [place] [address] Clarity (U) Clear Normal Clear [facility] Comment on above: Performed By: #### L [id number] ####Spun Paste Machine Operator: SHAYY MARROQUIN ([phone])[address] Color (U) Yellow Normal Lt. Yellow [facility] Comment on above: Performed By: #### L [id number] ####Spun Paste Machine Operator: SHAYY MARROQUIN ([phone])[facility])[address] [place] [address] GLUCOSE (MG/DL) IN URINE Normal Normal Normal (<70) [facility] Comment on above: Performed By: #### L [id number] ####Spun P[employer] Machine Operator: SHAYY MARROQUIN ([phone])[facility])[address] [place] [address] HEMOGLOBIN PRESENCE IN URINE Negative Normal Negative [facility] Comment on above: Performed By: #### L [id number] ####Spun Paste Machine Operator: SHAYY MARROQUIN ([phone])[facility])[address] [place] [address] HYALINE CASTS (#/LPF) IN URINE SEDIMENT BY MICROSCOPY 0-2 Abnormal Negative [facility] Comment on above: Performed By: #### L [id number] ####Spun Paste Machine Operator: SHAYY [id number])[facility] ([facility])[address] [place] [address] Ketones Ql (U) Negative Normal Negative [facility] Comment on above: Performed By: #### L [id number] ####Spun Paste Machine Operator: SHAYY MARROQUIN ([phone])[facility] ([facility])[address] [place] [address] LEUKOCYTE ESTERASE PRESENCE IN URINE BY TEST STRIP Negative Normal Negative [facility] Comment on above: Performed By: #### L [id number] ####Spun P[employer] Machine Operator: SHAYY MARROQUIN ([phone])[facility] ([facility])[address] [place] [address] MUCUS (#/LPF) IN URINE SEDIMENT Few Normal Negative [facility] Comment on above: Performed By: #### L [id number] ####Spun Paste Machine Operator: SHAYY MARROQUIN ([phone])[facility] ([facility])[address] [place] [address] NITRITE PRESENCE IN URINE Negative Normal Negative [facility] Comment on above: Performed By: #### L [id number] ####Spun Paste Machine Operator: SHAYY MARROQUIN ([phone])[facility] ([facility])[address] [place] [address] pH (U) 6.5 [pH] Normal 5.0-8.0 [facility] Comment on above: Performed By: #### L [id number] ####Spun Paste Machine Operator: SHAYY MARROQUIN ([phone])[facility] ([facility])[address] [place] [address] Protein (U) [Mass/Vol] 30 mg/dL Abnormal Negative [facility] Comment on above: Performed By: #### L [id number] ####Spun Paste Machine Operator: SHAYY MARROQUIN ([phone])[facility])[address] [place] [address] RBC (#/HPF) IN URINE SEDIMENT 0-2 Normal 0-2 [facility] Comment on above: Performed By: #### L [id number] ####Spun Paste Machine Operator: SHAYY MARROQUIN ([phone])[facility] ([facility])[address] [place] [address] Specific gravity (U) [Rel density] 1.024 Normal 1.005-1.03 0 [facility] Comment on above: Result Comment: ESPERANZA Abarca COMMENTS:A specimen with <=10 WBC is not consistent with inflammation. This specimen will not reflex to a urine culture. Performed By: #### L [id number] ####Spun Paste Machine Operator: SHAYY MARROQUIN ([phone])[facility] ([facility])[address] [place] [address] SQUAMOUS EPITHELIAL CELLS (#/HPF) IN URINE SEDIMENT 0-2 Normal 3-5 [facility] Comment on above: Performed By: #### L [id number] ####Spun Paste Machine Operator: SHAYY MARROQUIN ([phone])[facility])[address] [place] [address] UROBILINOGEN (MG/DL) IN URINE 6 mg/dL Abnormal Normal (0-1) [facility] Comment on above: Performed By: #### L [id number] ####Spun Paste Machine Operator: SHAYY MARROQUIN ([phone])[facility] ([facility])[address] [place] [address] WBC (LEUKOCYTE) (#/HPF) IN URINE SEDIMENT 3-5 Normal 0-5 [facility] Comment on above: Performed By: #### L [id number] ####Spun Paste Machine Operator: SHAYY MARROQUIN ([phone])[facility] ([facility])[address] [place] [address] Laboratory - Chemistry and C hemistry - challengeon 06-09-2025 Sodium (24H U) [Mass/Vol] 86 mmol/L [facility] Aldosterone [Mass/Vol] 9 ng/dL [facility] Magnesium [Mass/Vol] 1.9 mg/dL 1.6 - 2 .6 mg/dL [facility] MAGNESIUMon 06-09-2025 Magnesium [Mass/Vol] 1.9 mg/dL Normal 1.6-2.6 [facility] Comment on above: Result Comment: ESPERANZA Abarca COMMENTS:Higher values can be expected in females during menses. Performed By: #### L [id number], [id number], [id number] ####Spun Paste Machine Operator: SHAYY MARROQUIN ([phone])[facility])[address] [place] [address] [place] Magnesium [Mass/Vol]on 06-09 [facility] No Panel Informationon 06-09 CREATININE, URINE 218.7 mg/dL High 47.0 - 110.0 mg/dL [facility] Interpretation and review of laboratory results Abnormal [facility] SODIUM, URINE, FRACTIONAL EXCRETION 0.4 [facility] SODIUM, URINE, TUBULAR REABSORPTION [address] [facility] Interpretation and review of laboratory results Normal [facility] PHOSPHORUSon 06-09-2025 Phosphate [Mass/Vol] 4.0 mg/dL Normal 2.3-4.7 [facility] Comment on above: Performed By: #### L [id number], [id number], [id number] ####Spun Paste Machine Operator: SHAYY MARROQUIN ([phone])[facility] ([facility])[address] [place] [address] [place] Phosphate [Moles/Vol]on 05-20 Phosphate [Mass/Vol] 4 mg/dL 2.3 - 4 .7 mg/dL [facility] Progress Noteon 06-09-2025 Progress Note Normal [facility] Progress Note Normal [facility] Progress Note Normal [facility] SODIUM, URINE, RANDOMon 05-20 CREATININE, URINE 218.7 mg/dL High 47.0-110.0 [facility] Comment on above: Performed By: #### L [id number] ####Spun Paste Machine Operator: SHAYY MARROQUIN ([phone])[facility] ([facility])[address] [place] [address] [place] Sodium (U) [Moles/Vol] 86 mmol/L Normal [facility] Comment on above: Performed By: #### L [id number] ####Spun Paste Machine Operator: SHAYY MARROQUIN ([phone])[facility])[address] [place] [address] [place] SODIUM, URINE, FRACTIONAL EXCRETION 0.4 Normal [facility] Comment on above: Performed By: #### L [id number] ####Spun Paste Machine Operator: SHAYY MARROQUIN ([phone])[facility])[address] [place] [address] SODIUM, URINE, TUBULAR REABSORPTION 1.0 Normal [facility] Comment on above: Performed By: #### L [id number] ####Spun Paste Machine Operator: SHAYY MARROQUIN ([phone])[facility] ([facility])[address] [place] [address] Urinalysis complete panel (U )Ordered By: Cintia Harrington on 06-09-2025 Bacteria LM.HPF (Urine sed) [#/Area] Negative Negative /HPF [facility] Bilirubin Ql (U) Negative Negative mg/dL [facility] Clarity (U) Clear Clear [facility] Color (U) Yellow Lt. Yellow [facility] Epithelial cells.squamous LM.HPF (Urine sed) [#/Area] 0-2 [facility] Glucose Ql (U) Normal Normal (<70) mg/dL [facility] Hemoglobin Ql (U) Negative Negative mg/dL [facility] Hyaline casts Auto (Urine sed) [#/Area] 0-2 Abnormal Negative /LPF [facility] Interpretation and review of laboratory results Abnormal [facility] Ketones (U) [Mass/Vol] Negative Negat casey mg/dL [facility] Leukocyte esterase Test strip Ql (U) Negative Negative Lorie/uL [facility] Mucus LM.HPF (Urine sed) [#/Area] Few Negative /LPF [facility] Nitrite Ql (U) Negative Negative [facility] pH (U) 6.5 [pH] 5.0 - 8.0 pH [facility] Protein (U) [Mass/Vol] 30 mg/dL Abnormal Negative [facility] RBC LM.HPF (Urine sed) [#/Area] 0-2 [facility] Specific gravity (U) [Rel density] 1.024 1.005 - 1.030 [facility] Urobilinogen (U) [Mass/Vol] 6 mg/dL Abnormal Normal (0-1) [facility] WBC LM.HPF (Urine sed) [#/Area] 3-[address] [facility] BASIC METABOLIC PANELon 05-20 Anion gap [Moles/Vol] 7 mmol/L Normal 3-13 [facility] Comment on above: Performed By: #### L AB15, [id number], [id number] ####Spun Paste Machine Operator: SHAYY MARROQUIN ([phone])[facility] ([facility])[address] [place] [address] Calcium [Mass/Vol] 8.5 mg/dL Low 8.8-10.0 [facility] Comment on above: Performed By: #### L AB15, [id number], [id number] ####Spun Paste Machine Operator: SHAYY MARROQUIN ([phone])[facility])[address] [place] [address] Chloride [Moles/Vol] 107 mmol/L Normal 98-107 [facility] Comment on above: Performed By: #### L AB15, [id number], [id number] ####Spun Paste Machine Operator: SHAYY MARROQUIN ([phone])[facility])[address] [place] [address] CO2 [Moles/Vol] 22 mmol/L Low 23-31 [facility] Comment on above: Performed By: #### L AB15, [id number], [id number] ####Spun Paste Machine Operator: SHAYY MARROQUIN ([phone])[facility])[address] [place] [address] Creatinine [Mass/Vol] 1.28 mg/dL High 0.57-1.11 [facility] Comment on above: Performed By: #### L AB15, [id number], [id number] ####Spun Paste Machine Operator: SHAYY MARROQUIN ([phone])[facility])[address] [place] [address] [place] GLOMERULAR FILTRATION RATE ML/MIN/1.73 SQ M.PREDICTED 41.9 mL/min/1.73m*2 Low >60.0 [facility] Comment on above: Result Comment: Calc ulation based on the Chronic Kidney Disease Epidemiology Collaboration (CKD-EPI) equation refit without adjustment for race Performed By: #### L AB15, [id number], [id number] ####Spun Paste Machine Operator: SHAYY MARROQUIN ([phone])[facility])[address] [place] [address] Glucose [Mass/Vol] 80 mg/dL Low 82-115 [facility] Comment on above: Performed By: #### L AB15, [id number], [id number] ####Spun Paste Machine Operator: SHAYY MARROQUIN ([phone])[facility] ([facility])[address] [place] [address] Potassium [Moles/Vol] 3.7 mmol/L Normal 3.5-5.1 [facility] Comment on above: Result Comment: [facility] potassium values may be up to 0.5 mmol/L lower than serum values. Performed By: #### L AB15, [id number], [id number] ####Spun Paste Machine Operator: SHAYY MARROQUIN ([phone])[facility] ([facility])[address] [place] [address] Sodium [Moles/Vol] 136 mmol/L Normal 136-145 [facility] Comment on above: Performed By: #### L AB15, [id number], [id number] ####Spun Paste Machine Operator: SHAYY MARROQUIN ([phone])[facility] ([facility])[address] [place] [address] Urea nitrogen [Mass/Vol] 15 mg/dL Normal 9-23 [facility] Comment on above: Performed By: #### L AB15, [id number], [id number] ####Spun Paste Machine Operator: SHAYY MARROQUIN ([phone])[facility])[address] [place] [address] Basic metabolic 1998 panelon 06-08-2025 Anion gap [Moles/Vol] 7 mmol/L 3 - 13 mmol/L [facility] Calcium [Mass/Vol] 8.5 mg/dL Low 8.8 - 10. 0 mg/dL [facility] Chloride [Moles/Vol] 107 mmol/L 98 - 10 7 mmol/L [facility] CO2 [Moles/Vol] 22 mmol/L Low 23 - 31 mmol/L [facility] Creatinine [Mass/Vol] 1.28 mg/dL High 0.57 - 1.11 mg/dL [facility] GFR/1.73 sq M.predicted (S/P/Bld) [Vol rate/Area] 41.9 mL/min Low - PINF [facility] Glucose [Mass/Vol] 80 mg/dL Low 82 - 115 mg/dL [facility] Interpretation and review of laboratory results Abnormal [facility] Potassium [Moles/Vol] 3.7 mmol/L 3.5 - 5.1 mmol/L [facility] Sodium [Moles/Vol] 136 mmol/L 136 - 145 mmol/L [facility] Urea nitrogen [Mass/Vol] 15 mg/dL 9 - 23 mg/dL [facility] CBC W Auto Differential pane l (Bld)on 06-08-2025 Basophils (Bld) [#/Vol] 0 10*3/uL 0.0 - 0.2 10*3/uL [facility] Basophils/100 WBC (Bld) 0.4 % 0.0 - 2.0 % [facility] Eosinophils (Bld) [#/Vol] 0.5 10*3/uL 0.0 - 0.5 10*3/uL [facility] Eosinophils/100 WBC (Bld) 5.1 % 0.0 - 6.0 % [facility] Erythrocyte distribution width (RBC) [Ratio] 13.6 % 11.5 - 15.0 % [facility] Hematocrit (Bld) [Volume fraction] 35 % 35.0 - 47.0 % [facility] Hemoglobin (Bld) [Mass/Vol] 11.7 g/dL 11.7 - 16.0 g/dL [facility] Immature granulocytes (Bld) [#/Vol] 0 10*3/uL NINF - 0.1 10*3/uL [facility] Immature granulocytes/100 WBC (Bld) 0.3 % 0.0 - 2.0 % [facility] Interpretation and review of laboratory results Abnormal [facility] Lymphocytes (Bld) [#/Vol] 1.4 10*3/uL 1.0 - 4.3 10*3/uL [facility] Lymphocytes/100 WBC (Bld) 15.7 % 15.0 - 45.0 % [facility] MCH (RBC) [Entitic mass] 31.1 pg 26.0 - 34.0 pg [facility] MCHC (RBC) [Mass/Vol] 33.4 % 30.5 - 36.0 % [facility] MCV (RBC) [Entitic vol] 93.1 fL 77.0 - 99.0 fL [facility] Monocytes (Bld) [#/Vol] 1 10*3/uL High 0.0 - 0.9 10*3/uL [facility] Monocytes/100 WBC (Bld) 10.9 % 5.0 - 13.0 % [facility] Neutrophils (Bld) [#/Vol] 6.1 10*3/uL 1.8 - 7.5 10*3/uL [facility] Neutrophils/100 WBC (Bld) 67.6 % 38.0 - 82.0 % [facility] Nucleated RBC/100 WBC (Bld) [Ratio] 0 % [facility] Platelet mean volume (Bld) [Entitic vol] 9.3 fL 9.0 - 12.7 fL [facility] Platelets (Bld) [#/Vol] 232 10*3/uL 140 - 440 10*3/uL [facility] RBC (Bld) [#/Vol] 3.76 10*6/uL Low 3.80 - 5.20 10*6/uL [facility] WBC (Bld) [#/Vol] 9 10*3/uL 3.6 - 10.7 10*3/uL [facility] CBC WITH AUTO DIFFERENTIALon 06-08-2025 Basophils (Bld) [#/Vol] 0.0 10*3/uL Normal 0.0-0.2 [facility] Comment on above: Performed By: #### L [id number] ####Sp[employer] Paste Machine Operator: SHAYY [phone])[address] Basophils/100 WBC (Bld) 0.4 % Normal 0.0-2.0 [facility] Comment on above: Performed By: #### L [id number] ####Spun P[employer] Machine Operator: SHAYY [phone])[address] Eosinophils (Bld) [#/Vol] 0.5 10*3/uL Normal 0.0-0.5 [facility] Comment on above: Performed By: #### L [id number] ####Spun Paste Machine Operator: SHAYY [id number])[facility])[address] [place] [address] Eosinophils/100 WBC (Bld) 5.1 % Normal 0.0-6.0 [facility] Comment on above: Performed By: #### L [id number] ####Spun Paste Machine Operator: SHAYY MARROQUIN ([phone])[facility])[address] [place] [address] Erythrocyte distribution width (RBC) [Ratio] 13.6 % Normal 11.5-15.0 [facility] Comment on above: Performed By: #### L [id number] ####Spun Paste Machine Operator: SHAYY MARROQUIN ([phone])[facility])[address] [place] [address] Hematocrit (Bld) [Volume fraction] 35.0 % Normal 35.0-47.0 [facility] Comment on above: Performed By: #### L [id number] ####Spun Paste Machine Operator: SHAYY MARROQUIN ([phone])[facility])[address] [place] [address] Hemoglobin (Bld) [Mass/Vol] 11.7 g/dL Normal 11.7-16.0 [facility] Comment on above: Performed By: #### L [id number] ####Spun Paste Machine Operator: SHAYY MARROQUIN ([phone])[facility])[address] [place] [address] IMMATURE GRANS % 0.3 % Normal 0.0-2.0 [facility] Comment on above: Performed By: #### L [id number] ####Spun Paste Machine Operator: SHAYY MARROQUIN ([phone])[facility])[address] [place] [address] IMMATURE GRANS ABSOLUTE 0.0 10*3/uL Normal <0.1 [facility] Comment on above: Performed By: #### L [id number] ####Spun Paste Machine Operator: SHAYY MARROQUIN ([phone])[facility])[address] [place] [address] Lymphocytes (Bld) [#/Vol] 1.4 10*3/uL Normal 1.0-4.3 [facility] Comment on above: Performed By: #### L [id number] ####Spun Paste Machine Operator: SHAYY MARROQUIN ([phone])[facility])[address] [place] [address] Lymphocytes/100 WBC (Bld) 15.7 % Normal 15.0-45.0 [facility] Comment on above: Performed By: #### L [id number] ####Spun Paste Machine Operator: SHAYY MARROQUIN ([phone])[facility])[address] [place] [address] MCH (RBC) [Entitic mass] 31.1 pg Normal 26.0-34.0 [facility] Comment on above: Performed By: #### L [id number] ####Spun Paste Machine Operator: SHAYY MARROQUIN ([phone])[facility])[address] [place] [address] MCHC 33.4 % Normal 30.5-36.0 [facility] Comment on above: Performed By: #### L [id number] ####Spun Paste Machine Operator: SHAYY MARROQUIN ([phone])[facility])[address] [place] [address] MCV (RBC) [Entitic vol] 93.1 fL Normal 77.0-99.0 [facility] Comment on above: Performed By: #### L [id number] ####Spun Paste Machine Operator: SHAYY MARROQUIN ([phone])[facility])[address] [place] [address] Monocytes (Bld) [#/Vol] 1.0 10*3/uL High 0.0-0.9 [facility] Comment on above: Performed By: #### L [id number] ####Spun Paste Machine Operator: SHAYY MARROQUIN ([phone])[facility])[address] [place] [address] Monocytes/100 WBC (Bld) 10.9 % Normal 5.0-13.0 [facility] Comment on above: Performed By: #### L [id number] ####Spun Paste Machine Operator: SHAYY MARROQUIN ([phone])[facility] ([facility])[address] [place] [address] NEUTROPHILS ABSOLUTE 6.1 10*3/uL Normal 1.8-7.5 [facility] Comment on above: Performed By: #### L [id number] ####Spun Paste Machine Operator: SHAYY MARROQUIN ([phone])[facility])[address] [place] [address] Neutrophils/100 WBC (Bld) 67.6 % Normal 38.0-82.0 [facility] Comment on above: Performed By: #### L [id number] ####Spun Paste Machine Operator: SHAYY MARROQUIN ([phone])[facility])[address] [place] [address] NRBC 0.0 /100 WBCs Normal 0.0-2.0 [facility] Comment on above: Performed By: #### L [id number] ####Spun Paste Machine Operator: SHAYY MARROQUIN ([phone])[facility] ([facility])[address] [place] [address] Platelet mean volume (Bld) [Entitic vol] 9.3 fL Normal 9.0-12.7 [facility] Comment on above: Performed By: #### L [id number] ####Spun Paste Machine Operator: SHAYY MARROQUIN ([phone])[facility])[address] [place] [address] Platelets (Bld) [#/Vol] 232 10*3/uL Normal 140-440 [facility] Comment on above: Performed By: #### L [id number] ####Spun Paste Machine Operator: SHAYY MARROQUIN ([phone])[facility] ([facility])[address] [place] [address] RBC (Bld) [#/Vol] 3.76 10*6/uL Low 3.80-5.20 [facility] Comment on above: Performed By: #### L [id number] ####Spun Paste Machine Operator: SHAYY MARROQUIN ([phone])[facility] ([facility])[address] [place] [address] WBC (Bld) [#/Vol] 9.0 10*3/uL Normal 3.6-10.7 [facility] Comment on above: Performed By: #### L [id number] ####[employer]un P[employer] Machine Operator: SHAYY MARROQUIN ([phone])[facility] ([facility])[address] [place] [address] Laboratory - Chemistry and C hemistry - challengeon 06-08-2025 Magnesium [Mass/Vol] 2 mg/dL 1.6 - 2 .6 mg/dL [facility] MAGNESIUMon 06-08-2025 Magnesium [Mass/Vol] 2.0 mg/dL Normal 1.6-2.6 [facility] Comment on above: Result Comment: ESPERANZA Abarca COMMENTS:Higher values can be expected in females during menses. Performed By: #### L AB15, [id number], [id number] ####[employer]un P[employer] Machine Operator: SHAYY MARROQUIN ([phone])[facility] ([facility])[address] [place] [address] Magnesium [Mass/Vol]on 06-08 [facility] No Panel Informationon 06-08 CV CPACS HEMO [facility] Interpretation and review of laboratory results Normal [facility] PHOSPHORUSon 06-08-2025 Phosphate [Mass/Vol] 3.4 mg/dL Normal 2.3-4.7 [facility] Comment on above: Performed By: #### L AB15, [id number], [id number] ####[employer] P[employer] Machine Operator: SHAYY MARROQUIN ([phone])[facility] ([facility])[address] [place] [address] [place] Phosphate [Moles/Vol]on 05-20 Phosphate [Mass/Vol] 3.4 mg/dL 2.3 - 4 .7 mg/dL [facility] Progress Noteon 06-08-2025 Progress Note Normal [facility] Progress Note Normal [facility] [id number] 06-07-2025 [id number] Normal [facility] BASIC METABOLIC PANELon 05-20 Anion gap [Moles/Vol] 10 mmol/L Normal 3-13 [facility] Comment on above: Performed By: #### L AB113, [id number], LAB15, [id number] ####[employer] P[employer] Machine Operator: SHAYY MARROQUIN ([phone])[facility])[address] [place] [address] Calcium [Mass/Vol] 8.7 mg/dL Low 8.8-10.0 [facility] Comment on above: Performed By: #### L AB113, [id number], LAB15, [id number] ####Spun Paste Machine Operator: SHAYY MARROQUIN ([phone])[facility] ([facility])[address] [place] [address] Chloride [Moles/Vol] 104 mmol/L Normal 98-107 [facility] Comment on above: Performed By: #### L AB113, [id number], LAB15, [id number] ####[employer] P[employer] Machine Operator: SHAYY MARROQUIN ([phone])[facility])[address] [place] [address] CO2 [Moles/Vol] 22 mmol/L Low 23-31 [facility] Comment on above: Performed By: #### L AB113, [id number], LAB15, [id number] ####[employer] P[employer] Machine Operator: SHAYY MARROQUIN ([phone])[facility])[address] [place] [address] Creatinine [Mass/Vol] 1.27 mg/dL High 0.57-1.11 [facility] Comment on above: Performed By: #### L AB113, [id number], LAB15, [id number] ####[employer] P[employer] Machine Operator: SHAYY MARROQUIN ([phone])[facility])[address] [place] [address] GLOMERULAR FILTRATION RATE ML/MIN/1.73 SQ M.PREDICTED 42.3 mL/min/1.73m*2 Low >60.0 [facility] Comment on above: Result Comment: Calc ulation based on the Chronic Kidney Disease Epidemiology Collaboration (CKD-EPI) equation refit without adjustment for race Performed By: #### L AB113, [id number], LAB15, [id number] ####Spun Paste Machine Operator: SHAYY MARROQUIN ([phone])[facility] ([facility])[address] [place] [address] Glucose [Mass/Vol] 90 mg/dL Normal 82-115 [facility] Comment on above: Performed By: #### L AB113, [id number], LAB15, [id number] ####Spun Paste Machine Operator: SHAYY MARROQUIN ([phone])[facility] ([facility])[address] [place] [address] Potassium [Moles/Vol] 3.7 mmol/L Normal 3.5-5.1 [facility] Comment on above: Result Comment: [facility] potassium values may be up to 0.5 mmol/L lower than serum values. Performed By: #### L AB113, [id number], LAB15, [id number] ####Spun Paste Machine Operator: SHAYY MARROQUIN ([phone])[facility] ([facility])[address] [place] [address] Sodium [Moles/Vol] 136 mmol/L Normal 136-145 [facility] Comment on above: Performed By: #### L AB113, [id number], LAB15, [id number] ####Spun Paste Machine Operator: SHAYY MARROQUIN ([phone])[facility] ([facility])[address] [place] [address] Urea nitrogen [Mass/Vol] 14 mg/dL Normal 9-23 [facility] Comment on above: Performed By: #### L AB113, [id number], LAB15, [id number] ####Spun Paste Machine Operator: SHAYY MARROQUIN ([phone])[facility] ([facility])[address] [place] [address] Basic metabolic 1998 panelon 06-07-2025 Anion gap [Moles/Vol] 10 mmol/L 3 - 13 mmol/L [facility] Calcium [Mass/Vol] 8.7 mg/dL Low 8.8 - 10. 0 mg/dL [facility] Chloride [Moles/Vol] 104 mmol/L 98 - 10 7 mmol/L [facility] CO2 [Moles/Vol] 22 mmol/L Low 23 - 31 mmol/L [facility] Creatinine [Mass/Vol] 1.27 mg/dL High 0.57 - 1.11 mg/dL [facility] GFR/1.73 sq M.predicted (S/P/Bld) [Vol rate/Area] 42.3 mL/min Low - PINF [facility] Glucose [Mass/Vol] 90 mg/dL 82 - 115 mg/dL [facility] Interpretation and review of laboratory results Abnormal [facility] Potassium [Moles/Vol] 3.7 mmol/L 3.5 - 5.1 mmol/L [facility] Sodium [Moles/Vol] 136 mmol/L 136 - 145 mmol/L [facility] Urea nitrogen [Mass/Vol] 14 mg/dL 9 - 23 mg/dL [facility] CBC W Auto Differential pane l (Bld)on 06-07-2025 Basophils (Bld) [#/Vol] 0 10*3/uL 0.0 - 0.2 10*3/uL [facility] Basophils/100 WBC (Bld) 0.3 % 0.0 - 2.0 % [facility] Eosinophils (Bld) [#/Vol] 0.5 10*3/uL 0.0 - 0.5 10*3/uL [facility] Eosinophils/100 WBC (Bld) 4.4 % 0.0 - 6.0 % [facility] Erythrocyte distribution width (RBC) [Ratio] 13.7 % 11.5 - 15.0 % [facility] Hematocrit (Bld) [Volume fraction] 37 % 35.0 - 47.0 % [facility] Hemoglobin (Bld) [Mass/Vol] 12.3 g/dL 11.7 - 16.0 g/dL [facility] Immature granulocytes (Bld) [#/Vol] 0.1 10*3/uL High NINF - 0.1 10*3/uL [facility] Immature granulocytes/100 WBC (Bld) 0.5 % 0.0 - 2.0 % [facility] Interpretation and review of laboratory results Abnormal [facility] Lymphocytes (Bld) [#/Vol] 1.2 10*3/uL 1.0 - 4.3 10*3/uL [facility] Lymphocytes/100 WBC (Bld) 11.2 % Low 15.0 - 45.0 % [facility] MCH (RBC) [Entitic mass] 31.1 pg 26.0 - 34.0 pg [facility] MCHC (RBC) [Mass/Vol] 33.2 % 30.5 - 36.0 % [facility] MCV (RBC) [Entitic vol] 93.7 fL 77.0 - 99.0 fL [facility] Monocytes (Bld) [#/Vol] 1.2 10*3/uL High 0.0 - 0.9 10*3/uL [facility] Monocytes/100 WBC (Bld) 10.7 % 5.0 - 13.0 % [facility] Neutrophils (Bld) [#/Vol] 7.9 10*3/uL High 1.8 - 7.5 10*3/uL [facility] Neutrophils/100 WBC (Bld) 72.9 % 38.0 - 82.0 % [facility] Nucleated RBC/100 WBC (Bld) [Ratio] 0 % [facility] Platelet mean volume (Bld) [Entitic vol] 9.4 fL 9.0 - 12.7 fL [facility] Platelets (Bld) [#/Vol] 235 10*3/uL 140 - 440 10*3/uL [facility] RBC (Bld) [#/Vol] 3.95 10*6/uL 3.80 - 5.20 10*6/uL [facility] WBC (Bld) [#/Vol] 10.8 10*3/uL High 3.6 - 10.7 10*3/uL [facility] CBC WITH AUTO DIFFERENTIALon 06-07-2025 Basophils (Bld) [#/Vol] 0.0 10*3/uL Normal 0.0-0.2 [facility] Comment on above: Performed By: #### L [id number] ####Spun Paste Machine Operator: SHAYY MARROQUIN ([phone])[address] Basophils/100 WBC (Bld) 0.3 % Normal 0.0-2.0 [facility] Comment on above: Performed By: #### L [id number] ####Spun Paste Machine Operator: SHAYY MARROQUIN ([phone])[facility])[address] [place] [address] Eosinophils (Bld) [#/Vol] 0.5 10*3/uL Normal 0.0-0.5 [facility] Comment on above: Performed By: #### L [id number] ####Sp[employer] P[employer] Machine Operator: SHAYY MARROQUIN ([phone])[address] Eosinophils/100 WBC (Bld) 4.4 % Normal 0.0-6.0 [facility] Comment on above: Performed By: #### L [id number] ####Spun Paste Machine Operator: SHAYY MARROQUIN ([phone])[address] Erythrocyte distribution width (RBC) [Ratio] 13.7 % Normal 11.5-15.0 [facility] Comment on above: Performed By: #### L [id number] ####Spun Paste Machine Operator: SHAYY MARROQUIN ([phone])[address] Hematocrit (Bld) [Volume fraction] 37.0 % Normal 35.0-47.0 [facility] Comment on above: Performed By: #### L [id number] ####Spun Paste Machine Operator: SHAYY MARROQUIN ([phone])[address] Hemoglobin (Bld) [Mass/Vol] 12.3 g/dL Normal 11.7-16.0 [facility] Comment on above: Performed By: #### L [id number] ####Spun P[employer] Machine Operator: SHAYY MARROQUIN ([phone])[address] IMMATURE GRANS % 0.5 % Normal 0.0-2.0 [facility] Comment on above: Performed By: #### L [id number] ####Spun Paste Machine Operator: SHAYY MARROQUIN ([phone])[address] IMMATURE GRANS ABSOLUTE 0.1 10*3/uL High <0.1 [facility] Comment on above: Performed By: #### L [id number] ####Spun Paste Machine Operator: SHAYY [phone])[facility])[address] [place] [address] Lymphocytes (Bld) [#/Vol] 1.2 10*3/uL Normal 1.0-4.3 [facility] Comment on above: Performed By: #### L [id number] ####Spun Paste Machine Operator: SHAYY MARROQUIN ([phone])[facility])[address] [place] [address] Lymphocytes/100 WBC (Bld) 11.2 % Low 15.0-45.0 [facility] Comment on above: Performed By: #### L [id number] ####Spun Paste Machine Operator: SHAYY MARROQUIN ([phone])[facility])[address] [place] [address] MCH (RBC) [Entitic mass] 31.1 pg Normal 26.0-34.0 [facility] Comment on above: Performed By: #### L [id number] ####Spun Paste Machine Operator: SHAYY MARROQUIN ([phone])[facility])[address] [place] [address] MCHC 33.2 % Normal 30.5-36.0 [facility] Comment on above: Performed By: #### L [id number] ####Spun Paste Machine Operator: SHAYY MARROQUIN ([phone])[facility])[address] [place] [address] MCV (RBC) [Entitic vol] 93.7 fL Normal 77.0-99.0 [facility] Comment on above: Performed By: #### L [id number] ####Spun Paste Machine Operator: SHAYY MARROQUIN ([phone])[facility])[address] [place] [address] Monocytes (Bld) [#/Vol] 1.2 10*3/uL High 0.0-0.9 [facility] Comment on above: Performed By: #### L [id number] ####Spun Paste Machine Operator: SHAYY MARROQUIN ([phone])[facility])[address] [place] [address] Monocytes/100 WBC (Bld) 10.7 % Normal 5.0-13.0 [facility] Comment on above: Performed By: #### L [id number] ####Spun Paste Machine Operator: SHAYY MARROQUIN ([phone])[facility] ([facility])[address] [place] [address] NEUTROPHILS ABSOLUTE 7.9 10*3/uL High 1.8-7.5 [facility] Comment on above: Performed By: #### L [id number] ####Spun Paste Machine Operator: SHAYY MARROQUIN ([phone])[facility] ([facility])[address] [place] [address] Neutrophils/100 WBC (Bld) 72.9 % Normal 38.0-82.0 [facility] Comment on above: Performed By: #### L [id number] ####Spun Paste Machine Operator: SHAYY MARROQUIN ([id number])[facility] ([facility])[address] [place] [address] NRBC 0.0 /100 WBCs Normal 0.0-2.0 [facility] Comment on above: Performed By: #### L [id number] ####Spun Paste Machine Operator: SHAYY MARROQUIN ([phone])[facility] ([facility])[address] [place] [address] Platelet mean volume (Bld) [Entitic vol] 9.4 fL Normal 9.0-12.7 [facility] Comment on above: Performed By: #### L [id number] ####Spun Paste Machine Operator: SHAYY MARROQUIN ([id number])[facility] ([facility])[address] [place] [address] Platelets (Bld) [#/Vol] 235 10*3/uL Normal 140-440 [facility] Comment on above: Performed By: #### L [id number] ####Spun Paste Machine Operator: SHAYY MARROQUIN ([phone])[facility] ([facility])[address] [place] [address] RBC (Bld) [#/Vol] 3.95 10*6/uL Normal 3.80-5.20 [facility] Comment on above: Performed By: #### L [id number] ####Spun Paste Machine Operator: SHAYY MARROQUIN ([phone])[facility])[address] [place] [address] WBC (Bld) [#/Vol] 10.8 10*3/uL High 3.6-10.7 [facility] Comment on above: Performed By: #### L [id number] ####Spun Paste Machine Operator: SHAYY MARROQUIN ([phone])[facility] ([facility])[address] [place] [address] HIGH SENSITIVITY TROPONIN, S ERIAL, THIRD TESTon 06-07-2025 4H TROPONIN HS (SERIAL 3RD TROPONIN) 9 ng/L Normal <=14 [facility] Comment on above: Result Comment: 4h t roponin (3rd troponin) samples collected between 1h 40 min and 2h and 20 min of the 2h troponin collection time can be utilized to interpret delta troponins as per [facility] algorithms. Samples collected outside this timeframe need to be interpreted clinically. Performed By: #### L AB113, [id number], LAB15, [id number] ####Spun Paste Machine Operator: SHAYY MARROQUIN ([phone])[facility])[address] [place] [address] Laboratory - Chemistry and C hemistry - challengeon 06-07-2025 Magnesium [Mass/Vol] 1.8 mg/dL 1.6 - 2 .6 mg/dL [facility] MAGNESIUMon 06-07-2025 Magnesium [Mass/Vol] 1.8 mg/dL Normal 1.6-2.6 [facility] Comment on above: Result Comment: ESPERANZA R COMMENTS:Higher values can be expected in females during menses. Performed By: #### L AB113, [id number], LAB15, [id number] ####Spun Paste Machine Operator: SHAYY MARROQUIN ([phone])[facility])[address] [place] [address] Magnesium [Mass/Vol]on 06-07 [facility] No Panel Informationon 06-07 4h Troponin HS (Serial 3rd Troponin) 9 ng/L NINF - 14 ng/L [facility] Interpretation and review of laboratory results Normal [facility] PHOSPHORUSon 06-07-2025 Phosphate [Mass/Vol] 3.4 mg/dL Normal 2.3-4.7 [facility] Comment on above: Performed By: #### L AB113, [id number], LAB15, [id number] ####Spun Paste Machine Operator: SHAYY MARROQUIN ([phone])[facility])[address] [place] [address] [place] Phosphate [Moles/Vol]on 05-20 Phosphate [Mass/Vol] 3.4 mg/dL 2.3 - 4 .7 mg/dL [facility] Progress Noteon 06-07-2025 Progress Note Normal [facility] Progress Note Normal [facility] [id number] 06-06-2025 [id number] MAR transmitted to [facility] via [employer] per TCC request. Electronically signed by EMMA Ambrose Normal [facility] [id number] Transport placed in will call in Roundtrip. Normal [facility] [id number] Normal [facility] [id number] Normal [facility] BASIC METABOLIC PANELon 05-19 Anion gap [Moles/Vol] 9 mmol/L Normal 3-13 [facility] Comment on above: Performed By: #### L AB113, LAB15, [id number] ####Spun Paste Machine Operator: SHAYY MARROQUIN ([phone])[facility] ([facility])[address] [place] [address] [place] Calcium [Mass/Vol] 8.7 mg/dL Low 8.8-10.0 [facility] Comment on above: Performed By: #### L AB113, LAB15, [id number] ####Spun Paste Machine Operator: SHAYY MARROQUIN ([phone])[facility] ([facility])[address] [place] [address] [place] Chloride [Moles/Vol] 105 mmol/L Normal 98-107 [facility] Comment on above: Performed By: #### L AB113, LAB15, [id number] ####Spun Paste Machine Operator: SHAYY MARROQUIN ([phone])[facility] ([facility])[address] [place] [address] CO2 [Moles/Vol] 22 mmol/L Low 23-31 [facility] Comment on above: Performed By: #### L AB113, LAB15, [id number] ####Spun Paste Machine Operator: SHAYY MARROQUIN ([phone])[facility])[address] [place] [address] Creatinine [Mass/Vol] 1.20 mg/dL High 0.57-1.11 [facility] Comment on above: Performed By: #### L AB113, LAB15, [id number] ####Spun Paste Machine Operator: SHAYY MARROQUIN ([phone])[facility])[address] [place] [address] GLOMERULAR FILTRATION RATE ML/MIN/1.73 SQ M.PREDICTED 45.3 mL/min/1.73m*2 Low >60.0 [facility] Comment on above: Result Comment: Calc ulation based on the Chronic Kidney Disease Epidemiology Collaboration (CKD-EPI) equation refit without adjustment for race Performed By: #### L AB113, LAB15, [id number] ####Spun Paste Machine Operator: SHAYY MARROQUIN ([phone])[facility])[address] [place] [address] Glucose [Mass/Vol] 90 mg/dL Normal 82-115 [facility] Comment on above: Performed By: #### L AB113, LAB15, [id number] ####Spun Paste Machine Operator: SHAYY MARROQUIN ([phone])[facility])[address] [place] [address] Potassium [Moles/Vol] 3.5 mmol/L Normal 3.5-5.1 [facility] Comment on above: Result Comment: [facility] potassium values may be up to 0.5 mmol/L lower than serum values. Performed By: #### L AB113, LAB15, [id number] ####Spun Paste Machine Operator: SHAYY MARROQUIN ([phone])[facility])[address] [place] [address] Sodium [Moles/Vol] 136 mmol/L Normal 136-145 [facility] Comment on above: Performed By: #### L AB113, LAB15, [id number] ####Spun Paste Machine Operator: SHAYY MARROQUIN ([phone])[facility] ([facility])[address] [place] [address] Urea nitrogen [Mass/Vol] 14 mg/dL Normal 9-23 [facility] Comment on above: Performed By: #### L AB113, LAB15, [id number] ####Spun Paste Machine Operator: SHAYY MARROQUIN ([phone])[facility] ([facility])[address] [place] [address] Basic metabolic 1998 panelon 06-06-2025 Anion gap [Moles/Vol] 9 mmol/L 3 - 13 mmol/L [facility] Calcium [Mass/Vol] 8.7 mg/dL Low 8.8 - 10. 0 mg/dL [facility] Chloride [Moles/Vol] 105 mmol/L 98 - 10 7 mmol/L [facility] CO2 [Moles/Vol] 22 mmol/L Low 23 - 31 mmol/L [facility] Creatinine [Mass/Vol] 1.2 mg/dL High 0.57 - 1.11 mg/dL [facility] GFR/1.73 sq M.predicted (S/P/Bld) [Vol rate/Area] 45.3 mL/min Low - PINF [facility] Glucose [Mass/Vol] 90 mg/dL 82 - 115 mg/dL [facility] Interpretation and review of laboratory results Abnormal [facility] Potassium [Moles/Vol] 3.5 mmol/L 3.5 - 5.1 mmol/L [facility] Sodium [Moles/Vol] 136 mmol/L 136 - 145 mmol/L [facility] Urea nitrogen [Mass/Vol] 14 mg/dL 9 - 23 mg/dL [facility] CBC W Auto Differential pane l (Bld)on 06-06-2025 Basophils (Bld) [#/Vol] 0 10*3/uL 0.0 - 0.2 10*3/uL [facility] Basophils/100 WBC (Bld) 0.3 % 0.0 - 2.0 % [facility] Eosinophils (Bld) [#/Vol] 0.2 10*3/uL 0.0 - 0.5 10*3/uL [facility] Eosinophils/100 WBC (Bld) 1.7 % 0.0 - 6.0 % [facility] Erythrocyte distribution width (RBC) [Ratio] 13.4 % 11.5 - 15.0 % [facility] Hematocrit (Bld) [Volume fraction] 36.5 % 35.0 - 47.0 % [facility] Hemoglobin (Bld) [Mass/Vol] 12.3 g/dL 11.7 - 16.0 g/dL [facility] Immature granulocytes (Bld) [#/Vol] 0.1 10*3/uL High NINF - 0.1 10*3/uL [facility] Immature granulocytes/100 WBC (Bld) 0.4 % 0.0 - 2.0 % [facility] Interpretation and review of laboratory results Abnormal [facility] Lymphocytes (Bld) [#/Vol] 0.9 10*3/uL Low 1.0 - 4.3 10*3/uL [facility] Lymphocytes/100 WBC (Bld) 7.7 % Low 15.0 - 45.0 % [facility] MCH (RBC) [Entitic mass] 31 pg 26.0 - 34.0 pg [facility] MCHC (RBC) [Mass/Vol] 33.7 % 30.5 - 36.0 % [facility] MCV (RBC) [Entitic vol] 91.9 fL 77.0 - 99.0 fL [facility] Monocytes (Bld) [#/Vol] 1.1 10*3/uL High 0.0 - 0.9 10*3/uL [facility] Monocytes/100 WBC (Bld) 8.7 % 5.0 - 13.0 % [facility] Neutrophils (Bld) [#/Vol] 9.7 10*3/uL High 1.8 - 7.5 10*3/uL [facility] Neutrophils/100 WBC (Bld) 81.2 % 38.0 - 82.0 % [facility] Nucleated RBC/100 WBC (Bld) [Ratio] 0 % [facility] Platelet mean volume (Bld) [Entitic vol] 9.8 fL 9.0 - 12.7 fL [facility] Platelets (Bld) [#/Vol] 253 10*3/uL 140 - 440 10*3/uL [facility] RBC (Bld) [#/Vol] 3.97 10*6/uL 3.80 - 5.20 10*6/uL [facility] WBC (Bld) [#/Vol] 12 10*3/uL High 3.6 - 10.7 10*3/uL [facility] CBC WITH AUTO DIFFERENTIALon 06-06-2025 Basophils (Bld) [#/Vol] 0.0 10*3/uL Normal 0.0-0.2 [facility] Comment on above: Performed By: #### L [id number] ####Spun Paste Machine Operator: SHAYY MARROQUIN ([phone])[facility])[address] [place] [address] Basophils/100 WBC (Bld) 0.3 % Normal 0.0-2.0 [facility] Comment on above: Performed By: #### L [id number] ####Spun Paste Machine Operator: SHAYY MARROQUIN ([phone])[facility])[address] [place] [address] Eosinophils (Bld) [#/Vol] 0.2 10*3/uL Normal 0.0-0.5 [facility] Comment on above: Performed By: #### L [id number] ####Spun Paste Machine Operator: SHAYY MARROQUIN ([phone])[facility])[address] [place] [address] Eosinophils/100 WBC (Bld) 1.7 % Normal 0.0-6.0 [facility] Comment on above: Performed By: #### L [id number] ####Spun Paste Machine Operator: SHAYY MARROQUIN ([phone])[facility])[address] [place] [address] Erythrocyte distribution width (RBC) [Ratio] 13.4 % Normal 11.5-15.0 [facility] Comment on above: Performed By: #### L [id number] ####Spun Paste Machine Operator: SHAYY MARROQUIN ([phone])[facility])[address] [place] [address] Hematocrit (Bld) [Volume fraction] 36.5 % Normal 35.0-47.0 [facility] Comment on above: Performed By: #### L [id number] ####Spun Paste Machine Operator: SHAYY MARROQUIN ([phone])[facility])[address] [place] [address] Hemoglobin (Bld) [Mass/Vol] 12.3 g/dL Normal 11.7-16.0 [facility] Comment on above: Performed By: #### L [id number] ####Spun Paste Machine Operator: SHAYY MARROQUIN ([phone])[facility])[address] [place] [address] IMMATURE GRANS % 0.4 % Normal 0.0-2.0 [facility] Comment on above: Performed By: #### L [id number] ####Spun Paste Machine Operator: SHAYY MARROQUIN ([phone])[address] IMMATURE GRANS ABSOLUTE 0.1 10*3/uL High <0.1 [facility] Comment on above: Performed By: #### L [id number] ####Spun Paste Machine Operator: SHAYY MARROQUIN ([phone])[facility])[address] [place] [address] Lymphocytes (Bld) [#/Vol] 0.9 10*3/uL Low 1.0-4.3 [facility] Comment on above: Performed By: #### L [id number] ####Spun P[employer] Machine Operator: SHAYY MARROQUIN ([phone])[address] Lymphocytes/100 WBC (Bld) 7.7 % Low 15.0-45.0 [facility] Comment on above: Performed By: #### L [id number] ####[employer]un Paste Machine Operator: SHAYY MARROQUIN ([phone])[address] MCH (RBC) [Entitic mass] 31.0 pg Normal 26.0-34.0 [facility] Comment on above: Performed By: #### L [id number] ####Spun Paste Machine Operator: SHAYY MARROQUIN ([phone])[facility] ([facility])[address] [place] [address] MCHC 33.7 % Normal 30.5-36.0 [facility] Comment on above: Performed By: #### L [id number] ####Spun Paste Machine Operator: SHAYY MARROQUIN ([phone])[facility] ([facility])[address] [place] [address] MCV (RBC) [Entitic vol] 91.9 fL Normal 77.0-99.0 [facility] Comment on above: Performed By: #### L [id number] ####Spun Paste Machine Operator: SHAYY MARROQUIN ([phone])[facility] ([facility])[address] [place] [address] Monocytes (Bld) [#/Vol] 1.1 10*3/uL High 0.0-0.9 [facility] Comment on above: Performed By: #### L [id number] ####Spun Paste Machine Operator: SHAYY MARROQUIN ([phone])[facility] ([facility])[address] [place] [address] [place] Monocytes/100 WBC (Bld) 8.7 % Normal 5.0-13.0 [facility] Comment on above: Performed By: #### L [id number] ####Spun Paste Machine Operator: SHAYY MARROQUIN ([phone])[facility] ([facility])[address] [place] [address] NEUTROPHILS ABSOLUTE 9.7 10*3/uL High 1.8-7.5 [facility] Comment on above: Performed By: #### L [id number] ####Spun P[employer] Machine Operator: SHAYY MARROQUIN ([id number])[facility] ([facility])[address] [place] [address] Neutrophils/100 WBC (Bld) 81.2 % Normal 38.0-82.0 [facility] Comment on above: Performed By: #### L [id number] ####[employer] P[employer] Machine Operator: SHAYY MARROQUIN ([phone])[facility] ([facility])[address] [place] [address] NRBC 0.0 /100 WBCs Normal 0.0-2.0 [facility] Comment on above: Performed By: #### L [id number] ####[employer] P[employer] Machine Operator: SHAYY MARROQUIN ([phone])[facility])[address] [place] [address] Platelet mean volume (Bld) [Entitic vol] 9.8 fL Normal 9.0-12.7 [facility] Comment on above: Performed By: #### L [id number] ####[employer] P[employer] Machine Operator: SHAYY MARROQUIN ([phone])[facility] ([facility])[address] [place] [address] Platelets (Bld) [#/Vol] 253 10*3/uL Normal 140-440 [facility] Comment on above: Performed By: #### L [id number] ####[employer] P[employer] Machine Operator: SHAYY MARROQUIN ([phone])[facility])[address] [place] [address] RBC (Bld) [#/Vol] 3.97 10*6/uL Normal 3.80-5.20 [facility] Comment on above: Performed By: #### L [id number] ####[employer] P[employer] Machine Operator: SHAYY MARROQUIN ([phone])[facility])[address] [place] [address] WBC (Bld) [#/Vol] 12.0 10*3/uL High 3.6-10.7 [facility] Comment on above: Performed By: #### L [id number] ####[employer] P[employer] Machine Operator: SHAYY MARROQUIN ([phone])[facility] ([facility])[address] [place] [address] Laboratory - Chemistry and C hemistry - challengeon 06-06-2025 Magnesium [Mass/Vol] 1.8 mg/dL 1.6 - 2 .6 mg/dL [facility] MAGNESIUMon 06-06-2025 Magnesium [Mass/Vol] 1.8 mg/dL Normal 1.6-2.6 [facility] Comment on above: Result Comment: ESPERANZA R COMMENTS:Higher values can be expected in females during menses. Performed By: #### L [id number], [id number], [id number] ####[employer]un Paste Machine Operator: SHAYY MARROQUIN ([phone])[facility] ([facility])[address] [place] [id number] [place] Magnesium [Mass/Vol]on 06-06 [facility] No Panel Informationon 06-06 Interpretation and review of laboratory results Normal [facility] Nursing Noteon 06-06-2025 Nursing Note Normal [facility] PHOSPHORUSon 06-06-2025 Phosphate [Mass/Vol] 4.5 mg/dL Normal 2.3-4.7 [facility] Comment on above: Performed By: #### Vincent BRADSHAW, LAB15, [id number] ####[employer] P[employer] Machine Operator: SHAYY MARROQUIN ([phone])[facility] ([facility])[address] [place] [address] [place] Phosphate [Moles/Vol]on 05-19 Phosphate [Mass/Vol] 4.5 mg/dL 2.3 - 4 .7 mg/dL [facility] Progress Noteon 06-06-2025 Progress Note Normal [facility] Progress Note Normal [facility] Progress Note Normal [facility] Progress Note Normal [facility] Progress Note Normal [facility] [id number] 06-05-2025 [id number] Normal [facility] BASIC METABOLIC PANELon 05-19 Anion gap [Moles/Vol] 8 mmol/L Normal 3-13 [facility] Comment on above: Performed By: #### Vincent MATA, [id number], [id number] ####[employer] P[employer] Operator: SHAYY MARROQUIN ([phone])[facility] ([facility])[address] [place] [address] [place] Calcium [Mass/Vol] 8.4 mg/dL Low 8.8-10.0 [facility] Comment on above: Performed By: #### Vincent MATA, [id number], [id number] ####[employer] P[employer] Machine Operator: SHAYY MARROQUIN ([phone])[facility] ([facility])[address] [place] [address] [place] Chloride [Moles/Vol] 104 mmol/L Normal 98-107 [facility] Comment on above: Performed By: #### L AB15, [id number], [id number] ####Spun P[employer] Machine Operator: SHAYY MARROQUIN ([phone])[facility])[address] [place] [address] CO2 [Moles/Vol] 22 mmol/L Low 23-31 [facility] Comment on above: Performed By: #### L AB15, [id number], JDC115 ####Sp[employer] P[employer] Machine Operator: SHAYY MARROQUIN ([phone])[facility])[address] [place] [address] Creatinine [Mass/Vol] 1.19 mg/dL High 0.57-1.11 [facility] Comment on above: Performed By: #### Vincent AB15, [id number], [id number] ####[employer] P[employer] Machine Operator: SHAYY MARROQUIN ([phone])[address] GLOMERULAR FILTRATION RATE ML/MIN/1.73 SQ M.PREDICTED 45.7 mL/min/1.73m*2 Low >60.0 [facility] Comment on above: Result Comment: Calc ulation based on the Chronic Kidney Disease Epidemiology Collaboration (CKD-EPI) equation refit without adjustment for race Performed By: #### L AB15, [id number], [id number] ####[employer] P[employer] Machine Operator: SHAYY MARROQUIN ([phone])[address] Glucose [Mass/Vol] 98 mg/dL Normal 82-115 [facility] Comment on above: Performed By: #### L AB15, [id number], [id number] ####[employer] P[employer] Machine Operator: SHAYY MARROQUIN ([phone])[address] Potassium [Moles/Vol] 3.9 mmol/L Normal 3.5-5.1 [facility] Comment on above: Result Comment: [facility] potassium values may be up to 0.5 mmol/L lower than serum values. Performed By: #### L AB15, [id number], [id number] ####[employer] P[employer] Machine Operator: SHAYY MARROQUIN ([phone])[facility] ([facility])[address] [place] [address] Sodium [Moles/Vol] 134 mmol/L Low 136-145 [facility] Comment on above: Performed By: #### L AB15, [id number], [id number] ####Spun P[employer] Machine Operator: SHAYY MARROQUIN ([phone])[facility] ([facility])[address] [place] [address] Urea nitrogen [Mass/Vol] 13 mg/dL Normal 9-23 [facility] Comment on above: Performed By: #### L AB15, [id number], [id number] ####Spun Paste Machine Operator: SHAYY MARROQUIN ([phone])[facility] ([facility])[address] [place] [address] Basic metabolic 1998 panelon 06-05-2025 Anion gap [Moles/Vol] 8 mmol/L 3 - 13 mmol/L [facility] Calcium [Mass/Vol] 8.4 mg/dL Low 8.8 - 10. 0 mg/dL [facility] Chloride [Moles/Vol] 104 mmol/L 98 - 10 7 mmol/L [facility] CO2 [Moles/Vol] 22 mmol/L Low 23 - 31 mmol/L [facility] Creatinine [Mass/Vol] 1.19 mg/dL High 0.57 - 1.11 mg/dL [facility] GFR/1.73 sq M.predicted (S/P/Bld) [Vol rate/Area] 45.7 mL/min Low - PINF [facility] Glucose [Mass/Vol] 98 mg/dL 82 - 115 mg/dL [facility] Interpretation and review of laboratory results Abnormal [facility] Potassium [Moles/Vol] 3.9 mmol/L 3.5 - 5.1 mmol/L [facility] Sodium [Moles/Vol] 134 mmol/L Low 136 - 145 mmol/L [facility] Urea nitrogen [Mass/Vol] 13 mg/dL 9 - 23 mg/dL [facility] CBC W Auto Differential pane l (Bld)on 06-05-2025 Basophils (Bld) [#/Vol] 0.1 10*3/uL 0.0 - 0.2 10*3/uL [facility] Basophils/100 WBC (Bld) 0.5 % 0.0 - 2.0 % [facility] Eosinophils (Bld) [#/Vol] 0.4 10*3/uL 0.0 - 0.5 10*3/uL [facility] Eosinophils/100 WBC (Bld) 3.5 % 0.0 - 6.0 % [facility] Erythrocyte distribution width (RBC) [Ratio] 13.4 % 11.5 - 15.0 % [facility] Hematocrit (Bld) [Volume fraction] 37.2 % 35.0 - 47.0 % [facility] Hemoglobin (Bld) [Mass/Vol] 12.5 g/dL 11.7 - 16.0 g/dL [facility] Immature granulocytes (Bld) [#/Vol] 0 10*3/uL NINF - 0.1 10*3/uL [facility] Immature granulocytes/100 WBC (Bld) 0.4 % 0.0 - 2.0 % [facility] Interpretation and review of laboratory results Abnormal [facility] Lymphocytes (Bld) [#/Vol] 2.2 10*3/uL 1.0 - 4.3 10*3/uL [facility] Lymphocytes/100 WBC (Bld) 21.6 % 15.0 - 45.0 % [facility] MCH (RBC) [Entitic mass] 31.5 pg 26.0 - 34.0 pg [facility] MCHC (RBC) [Mass/Vol] 33.6 % 30.5 - 36.0 % [facility] MCV (RBC) [Entitic vol] 93.7 fL 77.0 - 99.0 fL [facility] Monocytes (Bld) [#/Vol] 1 10*3/uL High 0.0 - 0.9 10*3/uL [facility] Monocytes/100 WBC (Bld) 9.8 % 5.0 - 13.0 % [facility] Neutrophils (Bld) [#/Vol] 6.4 10*3/uL 1.8 - 7.5 10*3/uL [facility] Neutrophils/100 WBC (Bld) 64.2 % 38.0 - 82.0 % [facility] Nucleated RBC/100 WBC (Bld) [Ratio] 0 % [facility] Platelet mean volume (Bld) [Entitic vol] 9.5 fL 9.0 - 12.7 fL [facility] Platelets (Bld) [#/Vol] 260 10*3/uL 140 - 440 10*3/uL [facility] RBC (Bld) [#/Vol] 3.97 10*6/uL 3.80 - 5.20 10*6/uL [facility] WBC (Bld) [#/Vol] 10 10*3/uL 3.6 - 10.7 10*3/uL [facility] CBC WITH AUTO DIFFERENTIALon 06-05-2025 Basophils (Bld) [#/Vol] 0.1 10*3/uL Normal 0.0-0.2 [facility] Comment on above: Performed By: #### L [id number] ####Spun Paste Machine Operator: SHAYY MRAROQUIN ([phone])[facility])[address] [place] [address] Basophils/100 WBC (Bld) 0.5 % Normal 0.0-2.0 [facility] Comment on above: Performed By: #### L [id number] ####[employer] P[employer] Machine Operator: SHAYY MARROQUIN ([phone])[facility])[address] [place] [address] Eosinophils (Bld) [#/Vol] 0.4 10*3/uL Normal 0.0-0.5 [facility] Comment on above: Performed By: #### L [id number] ####Spun P[employer] Machine Operator: SHAYY MARROQUIN ([phone])[facility])[address] [place] [address] Eosinophils/100 WBC (Bld) 3.5 % Normal 0.0-6.0 [facility] Comment on above: Performed By: #### L [id number] ####[employer] P[employer] Machine Operator: SHAYY MARROQUIN ([phone])[facility])[address] [place] [address] Erythrocyte distribution width (RBC) [Ratio] 13.4 % Normal 11.5-15.0 [facility] Comment on above: Performed By: #### L [id number] ####Spun Paste Machine Operator: SHAYY MARROQUIN ([phone])[facility])[address] [place] [address] Hematocrit (Bld) [Volume fraction] 37.2 % Normal 35.0-47.0 [facility] Comment on above: Performed By: #### L [id number] ####Spun P[employer] Machine Operator: SHAYY MARROQUIN ([phone])[facility])[address] [place] [address] Hemoglobin (Bld) [Mass/Vol] 12.5 g/dL Normal 11.7-16.0 [facility] Comment on above: Performed By: #### L [id number] ####[employer] P[employer] Machine Operator: SHAYY MARROQUIN ([phone])[facility])[address] [place] [address] IMMATURE GRANS % 0.4 % Normal 0.0-2.0 [facility] Comment on above: Performed By: #### L [id number] ####Spun Paste Machine Operator: SHAYY MARROQUIN ([phone])[facility])[address] [place] [address] IMMATURE GRANS ABSOLUTE 0.0 10*3/uL Normal <0.1 [facility] Comment on above: Performed By: #### L [id number] ####Sp[employer] P[employer] Machine Operator: SHAYY MARROQUIN ([phone])[facility])[address] [place] [address] Lymphocytes (Bld) [#/Vol] 2.2 10*3/uL Normal 1.0-4.3 [facility] Comment on above: Performed By: #### L [id number] ####Spun P[employer] Machine Operator: SHAYY MARROQUIN ([phone])[facility])[address] [place] [address] Lymphocytes/100 WBC (Bld) 21.6 % Normal 15.0-45.0 [facility] Comment on above: Performed By: #### L [id number] ####Spun Paste Machine Operator: SHAYY MARROQUIN ([phone])[facility])[address] [place] [address] MCH (RBC) [Entitic mass] 31.5 pg Normal 26.0-34.0 [facility] Comment on above: Performed By: #### L [id number] ####Spun Paste Machine Operator: SHAYY MARROQUIN ([phone])[facility])[address] [place] [address] MCHC 33.6 % Normal 30.5-36.0 [facility] Comment on above: Performed By: #### L [id number] ####Spun P[employer] Machine Operator: SHAYY MARROQUIN ([phone])[facility])[address] [place] [address] MCV (RBC) [Entitic vol] 93.7 fL Normal 77.0-99.0 [facility] Comment on above: Performed By: #### L [id number] ####Spun P[employer] Machine Operator: SHAYY MARROQUIN ([phone])[facility])[address] [place] [address] Monocytes (Bld) [#/Vol] 1.0 10*3/uL High 0.0-0.9 [facility] Comment on above: Performed By: #### L [id number] ####Spun Paste Machine Operator: SHAYY MARROQUIN ([phone])[facility])[address] [place] [address] Monocytes/100 WBC (Bld) 9.8 % Normal 5.0-13.0 [facility] Comment on above: Performed By: #### L [id number] ####Spun Paste Machine Operator: SHAYY MARROQUIN ([phone])[facility])[address] [place] [address] NEUTROPHILS ABSOLUTE 6.4 10*3/uL Normal 1.8-7.5 [facility] Comment on above: Performed By: #### L [id number] ####Spun Paste Machine Operator: SHAYY MARROQUIN ([phone])[facility])[address] [place] [address] Neutrophils/100 WBC (Bld) 64.2 % Normal 38.0-82.0 [facility] Comment on above: Performed By: #### L [id number] ####Spun Paste Machine Operator: SHAYY MARROQUIN ([phone])[facility] ([facility])[address] [place] [address] NRBC 0.0 /100 WBCs Normal 0.0-2.0 [facility] Comment on above: Performed By: #### L [id number] ####Spun Paste Machine Operator: SHAYY MARROQUIN ([phone])[facility] ([facility])[address] [place] [address] Platelet mean volume (Bld) [Entitic vol] 9.5 fL Normal 9.0-12.7 [facility] Comment on above: Performed By: #### L [id number] ####Spun Paste Machine Operator: SHAYY MARROQUIN ([phone])[facility] ([facility])[address] [place] [address] Platelets (Bld) [#/Vol] 260 10*3/uL Normal 140-440 [facility] Comment on above: Performed By: #### L [id number] ####Spun Paste Machine Operator: SHAYY MARROQUIN ([phone])[facility] ([facility])[address] [place] [address] RBC (Bld) [#/Vol] 3.97 10*6/uL Normal 3.80-5.20 [facility] Comment on above: Performed By: #### L [id number] ####Spun Paste Machine Operator: SHAYY MARROQUIN ([phone])[facility])[address] [place] [address] WBC (Bld) [#/Vol] 10.0 10*3/uL Normal 3.6-10.7 [facility] Comment on above: Performed By: #### L [id number] ####Spun Paste Machine Operator: SHAYY MARROQUIN ([phone])[facility])[address] [place] [address] Consulton 06-05-2025 Consult Normal [facility] ECG 12-LEADon 06-05-2025 ECG 12-LEAD Normal [facility] Laboratory - Chemistry and C hemistry - challengeon 06-05-2025 Magnesium [Mass/Vol] 1.7 mg/dL 1.6 - 2 .6 mg/dL [facility] MAGNESIUMon 06-05-2025 Magnesium [Mass/Vol] 1.7 mg/dL Normal 1.6-2.6 [facility] Comment on above: Result Comment: ESPERANZA R COMMENTS:Higher values can be expected in females during menses. Performed By: #### L AB15, [id number], [id number] ####Spun Paste Machine Operator: SHAYY MARROQUIN ([phone])[facility] ([facility])[address] [place] [address] [place] Magnesium [Mass/Vol]on 06-05 Interpretation and review of laboratory results Normal [facility] No Panel Informationon 06-05 Interpretation and review of laboratory results Abnormal [facility] POCT ACT 148 High [facility] CV EPIPHANY [facility] Interpretation and review of laboratory results Abnormal [facility] POCT ACT [address] [facility] Interpretation and review of laboratory results Abnormal [facility] POCT ACT [facility] POCT ACT 314 High [facility] [employer] No Panel InformationOrdered By: Fabio Cho on 06-05-2025 P [place] 27 degrees [facility] Work Phone: [place] Interval 181 ms [employer] Work Phone: QRS [place] 31 degrees [employer] Work Phone: QRSD Interval 100 ms [employer] Work Phone: QT Interval 546 ms [employer] Work Phone: QTC Interval 494 ms [employer] Work Phone: T Wave [place] 80 degrees [facility] Work Phone: [facility] Work Phone: PHOSPHORUSon 06-05-2025 Phosphate [Mass/Vol] 3.9 mg/dL Normal 2.3-4.7 [facility] Comment on above: Performed By: #### L AB15, [id number], [id number] ####Spun Paste Machine Operator: SHAYY MARROQUIN ([phone])[facility] ([facility])[address] [place] [address] [place] Phosphate [Moles/Vol]on 05-19 Interpretation and review of laboratory results Normal [facility] Phosphate [Mass/Vol] 3.9 mg/dL 2.3 - 4 .7 mg/dL [facility] Progress Noteon 06-05-2025 Progress Note Normal [facility] Progress Note Normal [facility] Progress Note Normal [facility] Progress Note Normal [facility] Progress Note Nutrition update com pleted. Chart reviewed. Patient to be monitored and followed by the diet natural gas technician. VICK Beckman Normal [facility] Progress Note Normal [facility] Vital signsOrdered By: Jean Cho on 06-05-2025 Heart rate 49 /min bpm [facility] Work Phone: [phone] 06-04-2025 [id number] Normal [facility] ALDOSTERONE (BKR QUEST)on QUEST ALDOSTERONE, LC/MS/MS 9 ng/dL Normal [facility] Comment on above: Result Comment: Unab le to flag abnormal result(s), please refer to reference range(s) below:Adult Reference Ranges for Aldosterone, LC/MS/MS: Upright 8:00 - 10:00 am < or = 28 ng/dL Upright 4:00 - 6:00 pm < or = 21 ng/dL Supine 8:00 - 10:00 am 3 - 16 ng/dLThis test was developed and its analytical performancecharacteristics have been determined by [employer], [place]. It hasnot been cleared or approved by the U.S. Food and DrugAdministration. This assay has been validated pursuantto the CLIA regulations and is used for clinicalpurposes.Test Performed by Kaliki Edgerton,Consignd [facility],[address] [place] [id number] Suggs M.D., Ph.D., Director of [phone], CLIA [id number] Performed By: #### L [id number] ####[facility] ([facility])[address] [place] [address] [facility] BASIC METABOLIC PANELon 05-19 Anion gap [Moles/Vol] 7 mmol/L Normal 3-13 [facility] Comment on above: Performed By: #### L AB113, LAB15, UHK450 ####Spun Paste Machine Operator: SHAYY MARROQUIN ([phone])[facility] ([facility])[address] [place] [address] Calcium [Mass/Vol] 9.0 mg/dL Normal 8.8-10.0 [facility] Comment on above: Performed By: #### L AB113, LAB15, JDT426 ####Spun Paste Machine Operator: SAHYY MARROQUIN ([phone])[facility] ([facility])[address] [place] [address] Chloride [Moles/Vol] 106 mmol/L Normal 98-107 [facility] Comment on above: Performed By: #### Vincent AB113, LAB15, DFA727 ####Spun P[employer] Machine Operator: SHAYY MARROQUIN ([phone])[facility])[address] [place] [address] CO2 [Moles/Vol] 24 mmol/L Normal 23-31 [facility] Comment on above: Performed By: #### Vincent ABAllan, LAB15, [id number] ####Spun Paste Machine Operator: SHAYY MARROQUIN ([phone])[facility])[address] [place] [address] Creatinine [Mass/Vol] 1.10 mg/dL Normal 0.57-1.11 [facility] Comment on above: Performed By: #### Vincent AB113, LAB15, ALK576 ####Spun Paste Machine Operator: SHAYY MARROQUIN ([phone])[facility])[address] [place] [address] [place] GLOMERULAR FILTRATION RATE ML/MIN/1.73 SQ M.PREDICTED 50.3 mL/min/1.73m*2 Low >60.0 [facility] Comment on above: Result Comment: Calc ulation based on the Chronic Kidney Disease Epidemiology Collaboration (CKD-EPI) equation refit without adjustment for race Performed By: #### L AB113, LAB15, [id number] ####Sp[employer] Paste Machine Operator: SHAYY MARROQUIN ([phone])[facility])[address] [place] [address] Glucose [Mass/Vol] 88 mg/dL Normal 82-115 [facility] Comment on above: Performed By: #### L AB113, LAB15, JER006 ####Spun Paste Machine Operator: SHAYY MARROQUIN ([phone])[facility] ([facility])[address] [place] [address] Potassium [Moles/Vol] 4.2 mmol/L Normal 3.5-5.1 [facility] Comment on above: Result Comment: [facility] potassium values may be up to 0.5 mmol/L lower than serum values. Performed By: #### L AB113, LAB15, [id number] ####Sp[employer] Paste Machine Operator: SHAYY MARROQUIN ([phone])[facility] ([facility])[address] [place] [address] Sodium [Moles/Vol] 137 mmol/L Normal 136-145 [facility] Comment on above: Performed By: #### L AB113, LAB15, [id number] ####Spun Paste Machine Operator: SHAYY MARROQUIN ([phone])[facility] ([facility])[address] [place] [address] Urea nitrogen [Mass/Vol] 12 mg/dL Normal 9-23 [facility] Comment on above: Performed By: #### L AB113, LAB15, [id number] ####Spun Paste Machine Operator: SHAYY MARROQUIN ([phone])[facility])[address] [place] [address] Basic metabolic 1998 panelOr dered By: Bita Pelayo on 06-04-2025 Anion gap [Moles/Vol] 7 mmol/L 3 - 13 mmol/L [facility] Calcium [Mass/Vol] 9 mg/dL 8.8 - 10. 0 mg/dL [facility] Chloride [Moles/Vol] 106 mmol/L 98 - 10 7 mmol/L [facility] CO2 [Moles/Vol] 24 mmol/L 23 - 31 mmol/L [facility] Creatinine [Mass/Vol] 1.1 mg/dL 0.57 - 1.11 mg/dL [facility] GFR/1.73 sq M.predicted (S/P/Bld) [Vol rate/Area] 50.3 mL/min Low - PINF [facility] Glucose [Mass/Vol] 88 mg/dL 82 - 115 mg/dL [facility] Interpretation and review of laboratory results Abnormal [facility] Potassium [Moles/Vol] 4.2 mmol/L 3.5 - 5.1 mmol/L [facility] Sodium [Moles/Vol] 137 mmol/L 136 - 145 mmol/L [facility] Urea nitrogen [Mass/Vol] 12 mg/dL 9 - 23 mg/dL [facility] CBC W Auto Differential pane l (Bld)on 06-04-2025 Basophils (Bld) [#/Vol] 0 10*3/uL 0.0 - 0.2 10*3/uL [facility] Basophils/100 WBC (Bld) 0.4 % 0.0 - 2.0 % [facility] Eosinophils (Bld) [#/Vol] 0.3 10*3/uL 0.0 - 0.5 10*3/uL [facility] Eosinophils/100 WBC (Bld) 3.7 % 0.0 - 6.0 % [facility] Erythrocyte distribution width (RBC) [Ratio] 13.4 % 11.5 - 15.0 % [facility] Hematocrit (Bld) [Volume fraction] 37.8 % 35.0 - 47.0 % [facility] Hemoglobin (Bld) [Mass/Vol] 13 g/dL 11.7 - 16.0 g/dL [facility] Immature granulocytes (Bld) [#/Vol] 0 10*3/uL NINF - 0.1 10*3/uL [facility] Immature granulocytes/100 WBC (Bld) 0.3 % 0.0 - 2.0 % [facility] Interpretation and review of laboratory results Normal [facility] Lymphocytes (Bld) [#/Vol] 1.9 10*3/uL 1.0 - 4.3 10*3/uL [facility] Lymphocytes/100 WBC (Bld) 20.4 % 15.0 - 45.0 % [facility] MCH (RBC) [Entitic mass] 31.6 pg 26.0 - 34.0 pg [facility] MCHC (RBC) [Mass/Vol] 34.4 % 30.5 - 36.0 % [facility] MCV (RBC) [Entitic vol] 91.7 fL 77.0 - 99.0 fL [facility] Monocytes (Bld) [#/Vol] 0.8 10*3/uL 0.0 - 0.9 10*3/uL [facility] Monocytes/100 WBC (Bld) 8.2 % 5.0 - 13.0 % [facility] Neutrophils (Bld) [#/Vol] 6.2 10*3/uL 1.8 - 7.5 10*3/uL [facility] Neutrophils/100 WBC (Bld) 67 % 38.0 - 82.0 % [facility] Nucleated RBC/100 WBC (Bld) [Ratio] 0 % [facility] Platelet mean volume (Bld) [Entitic vol] 9.4 fL 9.0 - 12.7 fL [facility] Platelets (Bld) [#/Vol] 253 10*3/uL 140 - 440 10*3/uL [facility] RBC (Bld) [#/Vol] 4.12 10*6/uL 3.80 - 5.20 10*6/uL [facility] WBC (Bld) [#/Vol] 9.3 10*3/uL 3.6 - 10.7 10*3/uL [facility] CBC WITH AUTO DIFFERENTIALon 06-04-2025 Basophils (Bld) [#/Vol] 0.0 10*3/uL Normal 0.0-0.2 [facility] Comment on above: Performed By: #### L [id number] ####[employer] Operator: SHAYY [id number])[address] Basophils/100 WBC (Bld) 0.4 % Normal 0.0-2.0 [facility] Comment on above: Performed By: #### L [id number] ####[employer] Operator: SHAYY [id number])[address] Eosinophils (Bld) [#/Vol] 0.3 10*3/uL Normal 0.0-0.5 [facility] Comment on above: Performed By: #### L [id number] ####[employer] Operator: SHAYY [id number])[facility])[address] [place] [address] Eosinophils/100 WBC (Bld) 3.7 % Normal 0.0-6.0 [facility] Comment on above: Performed By: #### L [id number] ####[employer] Operator: SHAYY MARROQUIN ([phone])[facility])[address] [place] [address] Erythrocyte distribution width (RBC) [Ratio] 13.4 % Normal 11.5-15.0 [facility] Comment on above: Performed By: #### L [id number] ####[employer] Operator: SHAYY MARROQUIN ([phone])[facility])[address] [place] [address] Hematocrit (Bld) [Volume fraction] 37.8 % Normal 35.0-47.0 [facility] Comment on above: Performed By: #### L [id number] ####[employer] Operator: SHAYY MARROQUIN ([phone])[facility])[address] [place] [address] Hemoglobin (Bld) [Mass/Vol] 13.0 g/dL Normal 11.7-16.0 [facility] Comment on above: Performed By: #### L [id number] ####[employer] Machine Operator: SHAYY MARROQUIN ([phone])[facility])[address] [place] [address] IMMATURE GRANS % 0.3 % Normal 0.0-2.0 [facility] Comment on above: Performed By: #### L [id number] ####[employer] P[employer] Machine Operator: SHAYY MARROQUIN ([phone])[facility])[address] [place] [address] IMMATURE GRANS ABSOLUTE 0.0 10*3/uL Normal <0.1 [facility] Comment on above: Performed By: #### L [id number] ####[employer] Machine Operator: SHAYY MARROQUIN ([phone])[facility])[address] [place] [address] Lymphocytes (Bld) [#/Vol] 1.9 10*3/uL Normal 1.0-4.3 [facility] Comment on above: Performed By: #### L [id number] ####[employer] P[employer] Machine Operator: SHAYY MARROQUIN ([phone])[facility])[address] [place] [address] Lymphocytes/100 WBC (Bld) 20.4 % Normal 15.0-45.0 [facility] Comment on above: Performed By: #### L [id number] ####Spun Paste Machine Operator: SHAYY MARROQUIN ([phone])[facility])[address] [place] [address] MCH (RBC) [Entitic mass] 31.6 pg Normal 26.0-34.0 [facility] Comment on above: Performed By: #### L [id number] ####[employer] P[employer] Machine Operator: SHAYY MARROQUIN ([phone])[facility])[address] [place] [address] MCHC 34.4 % Normal 30.5-36.0 [facility] Comment on above: Performed By: #### L [id number] ####[employer] P[employer] Machine Operator: SHAYY MARROQUIN ([phone])[facility])[address] [place] [address] MCV (RBC) [Entitic vol] 91.7 fL Normal 77.0-99.0 [facility] Comment on above: Performed By: #### L [id number] ####[employer] P[employer] Operator: SHAYY MARROQUIN ([phone])[facility])[address] [place] [address] Monocytes (Bld) [#/Vol] 0.8 10*3/uL Normal 0.0-0.9 [facility] Comment on above: Performed By: #### L [id number] ####[employer] P[employer] Operator: SHAYY MARROQUIN ([phone])[facility])[address] [place] [address] Monocytes/100 WBC (Bld) 8.2 % Normal 5.0-13.0 [facility] Comment on above: Performed By: #### L [id number] ####[employer] Paste Machine Operator: SHAYY MARROQUIN ([phone])[facility] ([facility])[address] [place] [address] NEUTROPHILS ABSOLUTE 6.2 10*3/uL Normal 1.8-7.5 [facility] Comment on above: Performed By: #### L [id number] ####[employer] Paste Machine Operator: SHAYY MARROQUIN ([phone])[facility] ([facility])[address] [place] [address] Neutrophils/100 WBC (Bld) 67.0 % Normal 38.0-82.0 [facility] Comment on above: Performed By: #### L [id number] ####[employer] Paste Machine Operator: SHAYY MARROQUIN ([phone])[facility] ([facility])[address] [place] [address] NRBC 0.0 /100 WBCs Normal 0.0-2.0 [facility] Comment on above: Performed By: #### L [id number] ####[employer] Paste Machine Operator: SHAYY MARROQUIN ([phone])[facility] ([facility])[address] [place] [address] Platelet mean volume (Bld) [Entitic vol] 9.4 fL Normal 9.0-12.7 [facility] Comment on above: Performed By: #### L [id number] ####Sp[employer] Paste Machine Operator: SHAYY MARROQUIN ([phone])[facility])[address] [place] [address] [place] Platelets (Bld) [#/Vol] 253 10*3/uL Normal 140-440 [facility] Comment on above: Performed By: #### L [id number] ####Sp[employer] Paste Machine Operator: SHAYY MARROQUIN ([phone])[facility] ([facility])[address] [place] [address] RBC (Bld) [#/Vol] 4.12 10*6/uL Normal 3.80-5.20 [facility] Comment on above: Performed By: #### L [id number] ####[employer] Paste Machine Operator: SHAYY MARROQUIN ([phone])[facility])[address] [place] [address] WBC (Bld) [#/Vol] 9.3 10*3/uL Normal 3.6-10.7 [facility] Comment on above: Performed By: #### L [id number] ####[employer] Paste Machine Operator: SHAYY MARROQUIN ([phone])[facility] ([facility])[address] [place] [address] Laboratory - Chemistry and C hemistry - challengeon 06-04-2025 Magnesium [Mass/Vol] 1.7 mg/dL 1.6 - 2 .6 mg/dL [facility] MAGNESIUMon 06-04-2025 Magnesium [Mass/Vol] 1.7 mg/dL Normal 1.6-2.6 [facility] Comment on above: Result Comment: ESPERANZA Abarca COMMENTS:Higher values can be expected in females during menses. Performed By: #### L [id number], LAB15, [id number] ####Sp[employer] Paste Machine Operator: SHAYY MARROQUIN ([phone])[facility] ([facility])[address] [place] [address] Magnesium [Mass/Vol]on 06-04 Interpretation and review of laboratory results Normal [facility] [employer] No Panel InformationOrdered By: Martha Rios on 06-04-2025 AAA AP 3.79 cm [employer] Phone: AAA TR 3.76 cm [employer] Work Phone: Ao mid PSV 65.7 cm/s [employer] Phone: L renal orig RI 0.74 [employer] Phone: Left Arcuate Renal Artery EDV 4.3 cm/s [employer] Phone: Left Arcuate Renal Artery PSV 13.1 cm/s [employer] Phone: Left Arcuate Renal Artery RI 0.67 [employer] Phone: Left kidney length 8.09 cm [employer] Phone: Left renal dist EDV 19.5 cm/s [employer] Phone: Left renal dist PSV 56.6 cm/s [facility] Work Phone: Left renal dist RAR 0.86 [facility] Work Phone: Left Renal Dist RI 0.66 no units [facility] Work Phone: Left renal mid EDV 19.5 cm/s [facility] Work Phone: Left renal mid PSV 85.7 cm/s [facility] Work Phone: Left renal mid RAR 1.3 [facility] Work Phone: Left Renal Mid RI 0.77 no units [facility] Work Phone: Left renal middle parenchyma EDV 7.3 cm/s [facility] Work Phone: Left renal middle parenchyma PSV 23.8 cm/s [facility] Work Phone: Left renal middle parenchyma RI 0.69 [facility] Work Phone: Left renal origin EDV 26.1 cm/s [facility] Work Phone: Left renal origin PSV 98.5 cm/s [facility] Work Phone: Left renal origin RAR 1.5 [facility] Work Phone: Left renal prox EDV 37.5 cm/s [facility] Work Phone: Left renal prox PSV 86.5 cm/s [facility] Work Phone: Left renal prox RAR 1.32 [facility] Work Phone: Left Renal Prox RI 0.57 no units [facility] Work Phone: Left Renal RAR 1.5 [facility] Work Phone: Left Segmental Renal Artery EDV 7.3 cm/s [facility] Work Phone: Left Segmental Renal Artery PSV 23.8 cm/s [facility] Work Phone: Left Segmental Renal Artery RI 0.69 [facility] Work Phone: Right Arcuate Renal Artery EDV 6.1 cm/s [facility] Work Phone: Right Arcuate Renal Artery PSV 18.3 cm/s [facility] Work Phone: Right Arcuate Renal Artery RI 0.67 [facility] Work Phone: Right kidney length 10.24 cm [facility] Work Phone: Right renal dist EDV 22.4 cm/s [facility] Work Phone: Right renal dist PSV 96.9 cm/s [facility] Work Phone: Right renal dist RAR 1.47 [facility] Work Phone: Right Renal Dist RI 0.77 no units [facility] Work Phone: Right renal mid EDV 50.4 cm/s [facility] Work Phone: Right renal mid PSV 144 cm[facility] Work Phone: Right renal mid RAR 2.19 [facility] Work Phone: Right Renal Mid RI 0.65 [facility] Work Phone: Right renal middle parenchyma EDV 9.7 cm/s [facility] Work Phone: Right renal middle parenchyma PSV 44 cm/s [facility] Work Phone: Right renal middle parenchyma RI 0.78 [facility] Work Phone: Right renal origin EDV 38.7 cm/s [facility] Work Phone: Right renal origin PSV 226.4 cm/s [facility] Work Phone: Right renal origin RAR 3.45 [facility] Work Phone: Right Renal Origin RI 0.83 [facility] Work Phone: Right renal prox EDV 35.2 cm/s [facility] Work Phone: Right renal prox PSV 244.9 cm/s [facility] Work Phone: Right renal prox RAR 3.73 [facility] Work Phone: Right Renal Prox RI 0.86 [facility] [employer] Work Phone: [phone] Right Renal RAR 3.73 [facility] [employer] Work Phone: Right Segmental Renal Artery EDV 9.7 cm/s [facility] [employer] Work Phone: Right Segmental Renal Artery PSV 44 cm/s [facility] [employer] Work Phone: Right Segmental Renal Artery RI 0.78 [facility] [employer] Work Phone: No Panel Informationon 06-04 CV CPACS PHOSPHORUSon 06-04-2025 Phosphate [Mass/Vol] 3.1 mg/dL Normal 2.3-4.7 [facility] Comment on above: Performed By: #### L AB113, LAB15, [id number] ####[employer] P[employer] Machine Operator: SHAYY MARROQUIN ([phone])[address] Phosphate [Moles/Vol]on 05-19 Interpretation and review of laboratory results Normal [facility] Phosphate [Mass/Vol] 3.1 mg/dL 2.3 - 4 .7 mg/dL [facility] Progress Noteon 06-04-2025 Progress Note Normal [facility] Progress Note Normal [facility] RENIN ACTIVITY (BKR QUEST)on 06-04-2025 QUEST PLASMA RENIN ACTIVITY, LC/MS/MS 19.62 ng/mL/h High 0.25-5.82 [facility] Comment on above: Result Comment: This test was developed and its analytical performancecharacteristics have been determined by [employer] [place], [place]. It hasnot been cleared or approved by the U.S. Food and DrugAdministration. This assay has been validated pursuantto the CLIA regulations and is used for clinicalpurposes.Test Performed by KalikiRosa Isela,Abril [place],[address] [place] [address] [id number] Suggs M.D., Ph.D., Director of [phone], CLIA [id number] Performed By: #### L [id number] ####[facility] (AMDBEAKER)[address] [place] [facility] [id number] 06-03-2025 [id number] Normal [facility] BASIC METABOLIC PANELon 05-19 Anion gap [Moles/Vol] 6 mmol/L Normal 3-13 [facility] Comment on above: Performed By: #### L [id number], LAB15, [id number], [id number] ####Sp[employer] Paste Machine Operator: SHAYY MARROQUIN ([phone])[facility] ([facility])[address] [place] [address] Calcium [Mass/Vol] 8.6 mg/dL Low 8.8-10.0 [facility] Comment on above: Performed By: #### L [id number], LAB15, VTE112, [id number] ####[employer] P[employer] Machine Operator: SHAYY MARROQUIN ([phone])[facility] ([facility])[address] [place] [address] [place] Chloride [Moles/Vol] 106 mmol/L Normal 98-107 [facility] Comment on above: Performed By: #### L [id number], LAB15, WTF030, [id number] ####[employer] P[employer] Machine Operator: SHAYY MARROQUIN ([id number])[facility] ([facility])[address] [place] [address] [place] CO2 [Moles/Vol] 24 mmol/L Normal 23-31 [facility] Comment on above: Performed By: #### L [id number], LAB15, [id number], DPI337 ####[employer] P[employer] Operator: SHAYY MARROQUIN ([phone])[facility])[address] [place] [address] Creatinine [Mass/Vol] 1.09 mg/dL Normal 0.57-1.11 [facility] Comment on above: Performed By: #### L [id number], LAB15, [id number], ODM134 ####[employer] P[employer] Machine Operator: SHAYY MARROQUIN ([phone])[facility] ([facility])[address] [place] [address] [place] GLOMERULAR FILTRATION RATE ML/MIN/1.73 SQ M.PREDICTED 50.8 mL/min/1.73m*2 Low >60.0 [facility] Comment on above: Result Comment: Calc ulation based on the Chronic Kidney Disease Epidemiology Collaboration (CKD-EPI) equation refit without adjustment for race Performed By: #### L [id number], LAB15, VJI647, FNL657 ####[employer] P[employer] Operator: SHAYY MARROQUIN ([phone])[facility])[address] [place] [address] Glucose [Mass/Vol] 147 mg/dL High 82-115 [facility] Comment on above: Performed By: #### L [id number], LAB15, ZJI040, LIF145 ####[employer] P[employer] Operator: SHAYY MARROQUIN ([phone])[address] Potassium [Moles/Vol] 3.0 mmol/L Low 3.5-5.1 [facility] Comment on above: Result Comment: [facility] potassium values may be up to 0.5 mmol/L lower than serum values. Performed By: #### L [id number], LAB15, XAR945, SCJ633 ####Sp[employer] P[employer] Machine Operator: SHAYY MARROQUIN ([phone])[facility])[address] [place] [address] Sodium [Moles/Vol] 136 mmol/L Normal 136-145 [facility] Comment on above: Performed By: #### L [id number], LAB15, HWG036, RQY556 ####[employer] P[employer] Machine Operator: SHAYY MARROQUIN ([id number])[place] [address] [place] Urea nitrogen [Mass/Vol] 12 mg/dL Normal 9-23 [facility] Comment on above: Performed By: #### L [id number], LAB15, PBN124, IMZ070 ####Sp[employer] P[employer] Machine Operator: SHAYY MARROQUIN ([phone])[facility])[address] [place] [address] Basic metabolic 1998 panelon 06-03-2025 Anion gap [Moles/Vol] 6 mmol/L 3 - 13 mmol/L [facility] Calcium [Mass/Vol] 8.6 mg/dL Low 8.8 - 10. 0 mg/dL [facility] Chloride [Moles/Vol] 106 mmol/L 98 - 10 7 mmol/L [facility] CO2 [Moles/Vol] 24 mmol/L 23 - 31 mmol/L [facility] Creatinine [Mass/Vol] 1.09 mg/dL 0.57 - 1.11 mg/dL [facility] GFR/1.73 sq M.predicted (S/P/Bld) [Vol rate/Area] 50.8 mL/min Low - PINF [facility] Glucose [Mass/Vol] 147 mg/dL High 82 - 115 mg/dL [facility] Interpretation and review of laboratory results Abnormal [facility] Potassium [Moles/Vol] 3 mmol/L Low 3.5 - 5.1 mmol/L [facility] Sodium [Moles/Vol] 136 mmol/L 136 - 145 mmol/L [facility] Urea nitrogen [Mass/Vol] 12 mg/dL 9 - 23 mg/dL [facility] CBC W Auto Differential pane l (Bld)on 06-03-2025 Basophils (Bld) [#/Vol] 0.1 10*3/uL 0.0 - 0.2 10*3/uL [facility] Basophils/100 WBC (Bld) 0.5 % 0.0 - 2.0 % [facility] Eosinophils (Bld) [#/Vol] 0.5 10*3/uL 0.0 - 0.5 10*3/uL [facility] Eosinophils/100 WBC (Bld) 4.3 % 0.0 - 6.0 % [facility] Erythrocyte distribution width (RBC) [Ratio] 13.5 % 11.5 - 15.0 % [facility] Hematocrit (Bld) [Volume fraction] 39.9 % 35.0 - 47.0 % [facility] Hemoglobin (Bld) [Mass/Vol] 13.3 g/dL 11.7 - 16.0 g/dL [facility] Immature granulocytes (Bld) [#/Vol] 0.1 10*3/uL High NINF - 0.1 10*3/uL [facility] Immature granulocytes/100 WBC (Bld) 0.5 % 0.0 - 2.0 % [facility] Interpretation and review of laboratory results Abnormal [facility] [employer] Lymphocytes (Bld) [#/Vol] 2.1 10*3/uL 1.0 - 4.3 10*3/uL [facility] [employer] Lymphocytes/100 WBC (Bld) 19.7 % 15.0 - 45.0 % [facility] MCH (RBC) [Entitic mass] 30.9 pg 26.0 - 34.0 pg [facility] MCHC (RBC) [Mass/Vol] 33.3 % 30.5 - 36.0 % [facility] MCV (RBC) [Entitic vol] 92.8 fL 77.0 - 99.0 fL [facility] Monocytes (Bld) [#/Vol] 0.8 10*3/uL 0.0 - 0.9 10*3/uL [facility] Monocytes/100 WBC (Bld) 7.7 % 5.0 - 13.0 % [facility] Neutrophils (Bld) [#/Vol] 7.3 10*3/uL 1.8 - 7.5 10*3/uL [facility] Neutrophils/100 WBC (Bld) 67.3 % 38.0 - 82.0 % [facility] Nucleated RBC/100 WBC (Bld) [Ratio] 0 % [facility] [employer] Platelet mean volume (Bld) [Entitic vol] 9.5 fL 9.0 - 12.7 fL [facility] Platelets (Bld) [#/Vol] 270 10*3/uL 140 - 440 10*3/uL [facility] RBC (Bld) [#/Vol] 4.3 10*6/uL 3.80 - 5.20 10*6/uL [facility] WBC (Bld) [#/Vol] 10.9 10*3/uL High 3.6 - 10.7 10*3/uL [facility] CBC WITH AUTO DIFFERENTIALon 06-03-2025 Basophils (Bld) [#/Vol] 0.1 10*3/uL Normal 0.0-0.2 [facility] Comment on above: Performed By: #### L [id number] ####[employer] Operator: SHAYY MARROQUIN ([phone])[facility] ([address] Basophils/100 WBC (Bld) 0.5 % Normal 0.0-2.0 [facility] Comment on above: Performed By: #### L [id number] ####[employer] Operator: SHAYY MARROQUIN ([phone])[facility])[address] [place] [address] Eosinophils (Bld) [#/Vol] 0.5 10*3/uL Normal 0.0-0.5 [facility] Comment on above: Performed By: #### L [id number] ####[employer] Operator: SHAYY MARROQUIN ([phone])[facility])[address] [place] [address] Eosinophils/100 WBC (Bld) 4.3 % Normal 0.0-6.0 [facility] Comment on above: Performed By: #### L [id number] ####[employer] Operator: SHAYY MARROQUIN ([phone])[facility])[address] [place] [address] Erythrocyte distribution width (RBC) [Ratio] 13.5 % Normal 11.5-15.0 [facility] Comment on above: Performed By: #### L [id number] ####[employer] Operator: SHAYY MARROQUIN ([phone])[facility])[address] [place] [address] Hematocrit (Bld) [Volume fraction] 39.9 % Normal 35.0-47.0 [facility] Comment on above: Performed By: #### L [id number] ####[employer] Operator: SHAYY MARROQUIN ([phone])[facility])[address] [place] [address] Hemoglobin (Bld) [Mass/Vol] 13.3 g/dL Normal 11.7-16.0 [facility] Comment on above: Performed By: #### L [id number] ####[employer] Operator: SHAYY MARROQUIN ([phone])[facility])[address] [place] [address] IMMATURE GRANS % 0.5 % Normal 0.0-2.0 [facility] Comment on above: Performed By: #### L [id number] ####[employer] Operator: SHAYY MARROQUIN ([phone])[facility])[address] [place] [address] IMMATURE GRANS ABSOLUTE 0.1 10*3/uL High <0.1 [facility] Comment on above: Performed By: #### L [id number] ####[employer] Operator: SHAYY MARROQUIN ([phone])[facility])[address] [place] [address] Lymphocytes (Bld) [#/Vol] 2.1 10*3/uL Normal 1.0-4.3 [facility] Comment on above: Performed By: #### L [id number] ####[employer] Operator: SHAYY MARROQUIN ([phone])[address] Lymphocytes/100 WBC (Bld) 19.7 % Normal 15.0-45.0 [facility] Comment on above: Performed By: #### L [id number] ####[employer] Operator: SHAYY MARROQUIN ([phone])[facility])[address] [place] [address] MCH (RBC) [Entitic mass] 30.9 pg Normal 26.0-34.0 [facility] Comment on above: Performed By: #### L [id number] ####[employer] Operator: SHAYY MARROQUIN ([phone])[facility])[address] [place] [address] MCHC 33.3 % Normal 30.5-36.0 [facility] Comment on above: Performed By: #### L [id number] ####[employer] Operator: SHAYY MARROQUIN ([id number])[facility])[address] [place] [address] MCV (RBC) [Entitic vol] 92.8 fL Normal 77.0-99.0 [facility] Comment on above: Performed By: #### L [id number] ####[employer] Operator: SHAYY MARROQUIN ([phone])[facility])[address] [place] [address] Monocytes (Bld) [#/Vol] 0.8 10*3/uL Normal 0.0-0.9 [facility] Comment on above: Performed By: #### L [id number] ####[employer] Operator: SHAYY MARROQUIN ([id number])[facility] ([facility])[address] [place] [address] Monocytes/100 WBC (Bld) 7.7 % Normal 5.0-13.0 [facility] Comment on above: Performed By: #### L [id number] ####[employer] Operator: SHAYY MARROQUIN ([phone])[facility] ([facility])[address] [place] [address] NEUTROPHILS ABSOLUTE 7.3 10*3/uL Normal 1.8-7.5 [facility] Comment on above: Performed By: #### L [id number] ####[employer] Operator: SHAYY MARROQUIN ([id number])[facility] ([facility])[address] [place] [address] Neutrophils/100 WBC (Bld) 67.3 % Normal 38.0-82.0 [facility] Comment on above: Performed By: #### L [id number] ####[employer] Operator: SHAYY MARROQUIN ([phone])[facility] ([facility])[address] [place] [address] NRBC 0.0 /100 WBCs Normal 0.0-2.0 [facility] Comment on above: Performed By: #### L [id number] ####[employer] Operator: SHAYY MARROQUIN ([id number])[facility] ([facility])[address] [place] [address] Platelet mean volume (Bld) [Entitic vol] 9.5 fL Normal 9.0-12.7 [facility] Comment on above: Performed By: #### L [id number] ####[employer] Operator: SHAYY MARROQUIN ([id number])[facility] ([facility])[address] [place] [address] Platelets (Bld) [#/Vol] 270 10*3/uL Normal 140-440 [facility] Comment on above: Performed By: #### L [id number] ####[employer] Operator: SHAYY MARROQUIN ([id number])[facility])[address] [place] [address] RBC (Bld) [#/Vol] 4.30 10*6/uL Normal 3.80-5.20 [facility] Comment on above: Performed By: #### L [id number] ####[employer] Operator: SHAYY MARROQUIN ([phone])[facility] ([facility])[address] [place] [address] WBC (Bld) [#/Vol] 10.9 10*3/uL High 3.6-10.7 [facility] Comment on above: Performed By: #### L [id number] ####[employer] Operator: SHAYY MARROQUIN ([phone])[address] ECG 12-LEADon 06-03-2025 ECG 12-LEAD IMPRESSION: Sinus rhythm Nonspecific T abnormalities, lateral leads Electronically Signed On 06-03-2025 17:30:43 EDT by Daren Boyer [facility] HIGH SENSITIVITY TROPONIN, Sunday MURCIA, SECOND TESTon 06-03-2025 2H TROPONIN HS (SERIAL 2ND TROPONIN) 13 ng/L Normal <=14 [facility] Comment on above: Result Comment: 2h t roponin (2nd troponin) samples collected between 1h 40 min and 2h and 20 min of the baseline collection time can be utilized to interpret delta troponins as per [facility]. Samples collected outside this timeframe need to be interpreted clinically.Rising or falling troponin delta between 2 ??? 15 ng/L as compared to baseline value requires a 3rd serial troponin Performed By: #### L [id number], LAB15, FYV961, [id number] ####[employer] Operator: SHAYY MARROQUIN ([phone])[facility])[address] [place] [address] Laboratory - Chemistry and C hemistry - challengeon 06-03-2025 Magnesium [Mass/Vol] 1.7 mg/dL 1.6 - 2 .6 mg/dL [facility] MAGNESIUMon 06-03-2025 Magnesium [Mass/Vol] 1.7 mg/dL Normal 1.6-2.6 [facility] Comment on above: Result Comment: ESPERANZA R COMMENTS:Higher values can be expected in females during menses. Performed By: #### L [id number], LAB15, QRG123, [id number] ####[employer] Operator: SHAYY MARROQUIN ([phone])[facility] ([facility])[address] [place] [address] [place] Magnesium [Mass/Vol]on 06-03 [facility] [employer] No Panel InformationOrdered By: Daren Lopez on 06-03-2025 P [place] -35 degrees [facility] Work Phone: TX Interval 144 ms [facility] Work Phone: QRS [place] 19 degrees [facility] Work Phone: QRSD Interval 93 ms [facility] Work Phone: QT Interval 438 ms [facility] Work Phone: QTC Interval 466 ms [facility] Work Phone: T Wave [place] 120 degrees [facility] Work Phone: [employer] Work Phone: No Panel Informationon 06-03 CV EPIPHANY [facility] 2h Troponin HS (Serial 2nd Troponin) 13 ng/L NINF - 14 ng/L [facility] [employer] Interpretation and review of laboratory results Normal [facility] Interpretation and review of laboratory results Normal [facility] [employer] PHOSPHORUSon 06-03-2025 Phosphate [Mass/Vol] 2.9 mg/dL Normal 2.3-4.7 [facility] Comment on above: Performed By: #### L [id number], LAB15, FXH348, [id number] ####[employer] Operator: SHAYY MARROQUIN ([phone])[facility] ([facility])[address] [place] [address] [place] Phosphate [Moles/Vol]on 05-19 Phosphate [Mass/Vol] 2.9 mg/dL 2.3 - 4 .7 mg/dL [facility] [employer] Progress Noteon 06-03-2025 Progress Note Normal [facility] Progress Note Normal [facility] Progress Note Normal [facility] Progress Note Normal [facility] Progress Note Normal [facility] Vital signsOrdered By: Daren Lopez on 06-03-2025 Heart rate 68 /min bpm [facility] [employer] Work Phone: [phone] 06-02-2025 [id number] Normal [facility] [id number] Normal [facility] BASIC METABOLIC PANELon 05-19 Anion gap [Moles/Vol] 9 mmol/L Normal 3-13 [facility] Comment on above: Performed By: #### L [id number], [id number], [id number] ####[employer] P[employer] Machine Operator: SHAYY MARROQUIN ([phone])[facility] H[facility])[address] [place] [address] Calcium [Mass/Vol] 8.5 mg/dL Low 8.8-10.0 [facility] Comment on above: Performed By: #### L AB15, [id number], JUP909 ####Spun Paste Machine Operator: SHAYY MRAROQUIN ([phone])[facility] ([facility])[address] [place] [address] [place] Chloride [Moles/Vol] 109 mmol/L High 98-107 [facility] Comment on above: Performed By: #### L AB15, [id number], [id number] ####Spun Paste Machine Operator: SHAYY MARROQUIN ([phone])[facility])[address] [place] [address] [place] CO2 [Moles/Vol] 22 mmol/L Low 23-31 [facility] Comment on above: Performed By: #### L AB15, [id number], GBS895 ####Spun Paste Machine Operator: SHAYY MARROQUIN ([phone])[facility])[address] [place] [address] Creatinine [Mass/Vol] 0.97 mg/dL Normal 0.57-1.11 [facility] Comment on above: Performed By: #### L AB15, GFX221, [id number] ####Spun Paste Machine Operator: SHAYY MARROQUIN ([phone])[facility])[address] [place] [address] GLOMERULAR FILTRATION RATE ML/MIN/1.73 SQ M.PREDICTED 58.5 mL/min/1.73m*2 Low >60.0 [facility] Comment on above: Result Comment: Calc ulation based on the Chronic Kidney Disease Epidemiology Collaboration (CKD-EPI) equation refit without adjustment for race Performed By: #### L AB15, SAS748, HMO511 ####Spun Paste Machine Operator: SHAYY MARROQUIN ([phone])[facility])[address] [place] [address] Glucose [Mass/Vol] 86 mg/dL Normal 82-115 [facility] Comment on above: Performed By: #### L AB15, LFN000, JBR560 ####Spun Paste Machine Operator: SHAYY MARROQUIN ([phone])[facility])[address] [place] [address] Potassium [Moles/Vol] 3.3 mmol/L Low 3.5-5.1 [facility] Comment on above: Result Comment: [facility] potassium values may be up to 0.5 mmol/L lower than serum values. Performed By: #### L AB15, [id number], [id number] ####Spun Paste Machine Operator: SHAYY MARROQUIN ([phone])[facility])[address] [place] [address] [place] Sodium [Moles/Vol] 140 mmol/L Normal 136-145 [facility] Comment on above: Performed By: #### L AB15, [id number], ONV045 ####Spun Paste Machine Operator: SHAYY MARROQUIN ([phone])[facility])[address] [place] [address] [place] Urea nitrogen [Mass/Vol] 9 mg/dL Normal 9-23 [facility] Comment on above: Performed By: #### L AB15, CLH587, MQI822 ####Spun Paste Machine Operator: SHAYY MARROQUIN ([phone])[facility])[address] [place] [address] [place] Basic metabolic 1998 panelon 09-15-2025 Anion gap [Moles/Vol] 9 mmol/L 3 - 13 mmol/L [facility] Calcium [Mass/Vol] 8.5 mg/dL Low 8.8 - 10. 0 mg/dL [facility] Chloride [Moles/Vol] 109 mmol/L High 98 - 10 7 mmol/L [facility] CO2 [Moles/Vol] 22 mmol/L Low 23 - 31 mmol/L [facility] Creatinine [Mass/Vol] 0.97 mg/dL 0.57 - 1.11 mg/dL [facility] GFR/1.73 sq M.predicted (S/P/Bld) [Vol rate/Area] 58.5 mL/min Low - PINF [facility] Glucose [Mass/Vol] 86 mg/dL 82 - 115 mg/dL [facility] Interpretation and review of laboratory results Abnormal [facility] Potassium [Moles/Vol] 3.3 mmol/L Low 3.5 - 5.1 mmol/L [facility] Sodium [Moles/Vol] 140 mmol/L 136 - 145 mmol/L [facility] Urea nitrogen [Mass/Vol] 9 mg/dL 9 - 23 mg/dL [facility] Consulton 06-02-2025 Consult Normal [facility] HIGH SENSITIVITY TROPONIN, S ERIAL BASELINEon 06-02-2025 TROPONIN HS SERIAL BASELINE 9 ng/L Normal <=14 [facility] Comment on above: Result Comment: In i ndividuals presenting with symptoms > 2h, a baseline troponin <= 5 ng/L suggests acutecardiac injury is unlikely and further serial testing is generally not indicated. Performed By: #### L [id number] ####Spun Paste Machine Operator: SHAYY MARROQUIN ([phone])[facility] ([facility])[address] [place] [address] Laboratory - Chemistry and C hemistry - challengeon 06-02-2025 Magnesium [Mass/Vol] 1.8 mg/dL 1.6 - 2 .6 mg/dL [facility] MAGNESIUMon 06-02-2025 Magnesium [Mass/Vol] 1.8 mg/dL Normal 1.6-2.6 [facility] Comment on above: Result Comment: ORDE R COMMENTS:Higher values can be expected in females during menses. Performed By: #### L AB15, [id number], YPR120 ####Spun Paste Machine Operator: SHAYY MARROQUIN ([phone])[facility] ([facility] Magnesium [Mass/Vol]on 06-02 [facility] [employer] No Panel Informationon 06-02 Interpretation and review of laboratory results Normal [facility] Troponin HS Serial Baseline 9 ng/L NINF - 14 ng/L [facility] Interpretation and review of laboratory results Normal [facility] No Panel InformationOrdered By: Charanjit Calhoun on 06-02-2025 Case Report [facility] [employer] Work Phone: Clinical Information o4miwIBmDPBqsUMwUTJ wMVxhbnN cLBHtcPGiD9PccodcDJcdKJ3nYC 7uoShjdMQkwBZjIYAqQfOym2uja 920pXRij4xdKSNLUObtWRFENQd6 rYsvX29kr9B6ZofdV4spEXHdBPx zAUAgYSrrzDYyVLz7VJHhgFXqkh ScKfMnVTWaxBGycTC1OVWtMK0zd pseUDbmIPfdHXKdxoX2NPQgpDNb W0WtBKFbYA5jcrdjUVZ6YWevKSO hRNL1MjZlAWStz3Jczxg4CuAneM Zfr2IvwSIpgQDwq8kiiGBhXTY1O PHmIQXnu23qJXMgFiRiasnyVgIx wq4ykrRxI4qavzRfzcgwlzEylg6 rGUzkkIEzSZMhIHQlPJMan13fAR AexzVxnTNmgYrzqJD8b8lkOSUoC 4xadHxRqJZ4nJx7XVJdH1WuhRp9 JRCbEIWazlZpaW25NfaaoXtmmH1 cZnMyMFxjZjEgQmlsYXRlcmFsIG Mjyw96yTRyPDX4COB6HFR7QP1zm 5aaQR2wIMY5EuXvHYtKH3IrVVUx C80rAOFliZktpM03Gibcfc03GJE hcmRccGFyfQ== [facility] Work Phone: Disclaimer a7gzaNXoHDIioLMyTzBv MDAwXGF ot6ikOITpmHMgGpZpHrSyKaJfDo qweRXhLGSoIuDdr6she592dPRfk 0kqNDHtJgS1bNQeHUHqC98cQLHX R672VYBqXGbre9gqx2NvIQKifSS xc9X7HYLQUFkbCDLVNBf7oRjaV6 0tj0M0FcipD9prPFRePEIsO8ZpK D5bHJKaZhu3SDS5IXP9MTSsSEVr L3IpAO9xHXZoeTLgEBq1z4zzeBu tABGtHSQ6m6onCTjprrYgTR6mnd 2dlSs9i4rmxaQaDMQyXGTsrGFYK XBaI9KrpOiwBv1rkEy5uBbnXwur JZW2Ivu7FS8zlz40pcg7xOnkODT hicjxEhV3HSanVXJmxrzbHOw0UE nyZYYvmFO1ILPceOPvT0PfVNXrC O9lbkx8NVO0DLauCJNoBiE4FVJh rAEjKGKxgDfaZJlex831YVI9XtY cPB7vE7Hzs7H1oK7kyWDaJYVipS ZeImTeMVJqac4jxBYdZXkzb4LpG PQ7ezY5sLPzaSXdJCBsGE21Zxmi s7WlAqdwHSY3PGFvpoQlq1Jbz1u tHiEwgtGnJ0nuZ7BuJAOzYGKrEJ InYsOifeNop3Ivv8ArqPNmpJo0m 2qzNIWqKYIlyVzrq9nqMWH9AJNz Z4V1wBPkd9ngMWitEBZveLH9dlL 8PAFxtONdG4CuhF6yJCHuRL6lhf f7a4zgNOG9UXjzJCThChQ2bwZ7O DFxhSWhWVUsfJsmLEgvw286VPU9 QqGdWJXiy5WxG1WmpYwoO79loOt nI01oPNRdlOhukD2zyNzzvW0lYx BcZnMyNFxxbFxwbGFpblxmMVxmc wH4XWtwocbkOYXyZAfiG5utEkEr RUGyiKscMZgts8SoUMBiTZWeKIL aIZgbU3vvoO5isaegRClpGNIrvB exz8ueMySmcCR9BN8yxsHhVYMkx UgoprS5ztRdjDhgtS3ikP9wvBxx xL2edDOvzJC8sixvHJigMWNsvIN zsUjvhxqajKrxeDgqvgvkjW8eCN V3nJAeUAB5aMIdWOUhIZPtTCVfz P20qy1bdXIwxyPqT6MuP5CiwXFt dGrlXtusxANnjKNlYu7mmNMlWF4 oDOOnkHFuB7PvBN1hUSXpqosgFO DuBEluQWPwUJAcKcBhrmWko7Akw Z2wDURaOZKgLX58mcJeitT0lENj YWJvdmUgdGVzdHMgaXMgcmVndWx hwMTvAAQpBBMdQRIwGGd2nUKam8 SaQ1ljbWDwjuRmF1EdzIPvOUSVE F6dDHsji7AbtNOehWXlc5BvRKAt ZESanX8pHPYuSR0iRJXaIPqfTMO lscBcdo1bezSnFYRzTTKoQ5Uksu spzFasuzBvEZHtvy6nahPqYXS6M HRoZSBjbGluaWNhbCBsYWJvcmF0 b4EcQLWxl6OcS2HbpBWhUDKzmTM wHFM7j8IpyY2yPNrcjCVuOOUoWM 5vdCBiZWVuIGNsZWFyZWQgYnkgd XvgBXVFPASli6JyYM2jDBKarCgd XBKwnX4so0RzUJTvp83vXVIVDKp uIFRoZSBGREEgaGFzIGRldGVybW luZWQgdGhhdCBzdWNoIGNsZWFyY K5cIPCpdeWhyIQuw7VbrHIhaaJj j5GvelBcPZAwFBR9FoPbqHYgBYC lwgPGmGfxyI3iiN9us4WgnB2tOG padfQorZZxAi0ccULgJB4xYTZbg lWgTmpbBGFaQnGqTMZfTBAoi9L1 AO2lJLOvqn2elwvasIJhqI7asZD rxtHuIJ1wEN9fC2L8yVAuWIRosv Its3sbXGa8rDBrMIYebLLzvVXtY fmhBMX0JEBcRFC2sfGvcsBgAOFm wPuajOU3rCByXVAzRRBvRVOtRP6 4Y7Hmo6NpP8uuJK06GCJtOOTaWQ ZkehNck8ysRYOud5egNJAylEQuK 9OvZQSbaPWtcusdYsFmWHB3VCTj ZYC6cLBgFUOdW3SegFRwqZJdhX4 9VQ2kxTM2NI8pRUB9GEhwhK3eGs DShU14oa4cwTD5i4YxOK9aF9PyA MLux0F8asVhAGRbGA5uzVJqHFOt IHZhbGlkYXRlZCBvbiBkZWNhbGN cJeheIMF7aXBfcDNcKkKQXGT1tJ RnGGQyb9DxNPHlIVXmvnHjynLcU PCiZLL9rJUrDBZqcJUhd56lS8w4 AX4omZysDJFoqHQnICQna9AavGP yqBb7lMBrZfJtZTeoVSCbLAmrcA i4pYU7KQ3cTZGiI3UwS0shrCUpT NRxNSUfsMUzus6lnTBqyP== [employer] Work Phone: [employer] i9dogMHvLAOwqHAvYTSs MVxhbnN kXWAbpQTiD1MarsocXJavKG3iAF 6geZnqbHMjeFCjOWPiBrBpv2vif 123mNHbh4djQTXHEBgrEAZIQMi8 lVotM89ok9U3QaheV51qwTNlVDK 6AFYzLJGunTBhCPOgMSD8JZQmgU RxX0zeXGByFE9ftbhgYYuuOBvjS YWimVE5BSDeuVYbO6QkHDInGDrq RHVqnlk5QqQqCe9drLWarDvsXCt wYXJkXHBsYWluXGZzMjAgUmVjZW k7QYTjhS9qDx2ydWRydA6hlDBuH HteDYXjBbkoHmIdI5Szb1AhZPPw tKUbvGNzJMshZVCiE8jpfJ2rhuc xPVhqzO9ydTjtkaYhMoX8RT6wxS shfkBdaeMvoDQehP56AUIet6O3Q ND9fOC9XG3bEJO2zeYvLBNhKCC1 GONzMVM8BNPbJSVhbI6aUHZcJ4U ss57kziory8SfnKkxVAFjSVPuqO MjJEBaddJbuLNat4PtuzQoE5ThR 2lmaWNhdGlvbnMuICBSZXByZXNl hqNytXz7HMBbARK0jB0sjrOcIqR 5iUEom5QwM3iuHF2uDFDuTNR0Xf 8grHNjCIDwhaHqchMfE7Dlf1B3b GUuIFxwYXJ9 [employer] Work Phone: Pathologist Interpretation Location [facility], [address] [place] [address], Critical access hospital [address], CLIA: [id number]; Joint Commission: HCO [id number]; CAP: [id number] [employer] Phone: Pathology report final diagnosis Narrative n9rbeTWzEIQacOYwOCHlUAxvsmU oUHQpfJGbV6MwnsyvIAeyMX5mCN 3izAocfAIfiKWmIKBfFcTee0bof 066sLAci6ixQWHDWGwnHXFZHPp4 hOjeP50wa9E4CcqlK96yzYKuJAP 1UECrMUBahQWxBMStKYB9CUJcaM WdL3ndYQFaRX6xhwwrSNylVHyuJ VKtrGA0EHVguSUyL2NbPHAdKZvb HIGmdbh5IgKaQz3npOBcaEdhTEo wYXJkXHBsYWluXGZzMjAgTEVGVC BDQVJPVElEIEFSVEVSWSBQTEFRV ZJtKGGDXSAPSANEENZPT66QFyqk YHYjEH3sWREoPIQYNAkUOCJPQPN uRKTVKBVIQ9QJPUNGCFiBLXIVAT UKWJ8odXCpqO== [facility] [employer] Work Phone: [facility] [employer] Work Phone: PHOSPHORUSon 06-02-2025 Phosphate [Mass/Vol] 2.9 mg/dL Normal 2.3-4.7 [facility] Comment on above: Performed By: #### Vincent ABDanyel, [id number], [id number] ####[employer] Paste Machine Operator: SHAYY MARROQUIN ([phone])[address] Phosphate [Moles/Vol]on 05-19 Phosphate [Mass/Vol] 2.9 mg/dL 2.3 - 4 .7 mg/dL [facility] Progress Noteon 06-02-2025 Progress Note Normal [facility] Progress Note Normal [facility] Progress Note Normal [facility] BASIC METABOLIC PANELon 05-19 Anion gap [Moles/Vol] 5 mmol/L Normal 3-13 [facility] Comment on above: Performed By: #### L AB15, [id number], XTL613 ####Spun Paste Machine Operator: SHAYY MARROQUIN ([phone])[facility])[address] [place] [address] Calcium [Mass/Vol] 8.4 mg/dL Low 8.8-10.0 [facility] Comment on above: Performed By: #### L AB15, CID695, PGS709 ####Spun Paste Machine Operator: SHAYY MARROQUIN ([phone])[facility] ([facility])[address] [place] [address] Chloride [Moles/Vol] 109 mmol/L High 98-107 [facility] Comment on above: Performed By: #### L AB15, [id number], ZCW866 ####Spun Paste Machine Operator: SHAYY MARROQUIN ([phone])[facility] ([facility])[address] [place] [address] CO2 [Moles/Vol] 25 mmol/L Normal 23-31 [facility] Comment on above: Performed By: #### L AB15, PRN870, JVT238 ####Spun Paste Machine Operator: SHAYY MARROQUIN ([phone])[facility] ([facility])[address] [place] [address] Creatinine [Mass/Vol] 1.01 mg/dL Normal 0.57-1.11 [facility] Comment on above: Performed By: #### L AB15, IYW846, TMR304 ####Spun Paste Machine Operator: SHAYY MARROQUIN ([phone])[facility] ([facility])[address] [place] [address] [place] GLOMERULAR FILTRATION RATE ML/MIN/1.73 SQ M.PREDICTED 55.7 mL/min/1.73m*2 Low >60.0 [facility] Comment on above: Result Comment: Calc ulation based on the Chronic Kidney Disease Epidemiology Collaboration (CKD-EPI) equation refit without adjustment for race Performed By: #### L AB15, NLO824, UGV857 ####Spun Paste Machine Operator: SHAYY MARROQUIN ([phone])[facility] ([facility])[address] [place] [address] [place] Glucose [Mass/Vol] 76 mg/dL Low 82-115 [facility] Comment on above: Performed By: #### L AB15, [id number], SEB632 ####Spun Paste Machine Operator: SHAYY MARROQUIN ([phone])[facility])[address] [place] [address] Potassium [Moles/Vol] 3.5 mmol/L Normal 3.5-5.1 [facility] Comment on above: Result Comment: [facility] potassium values may be up to 0.5 mmol/L lower than serum values. Performed By: #### L AB15, JII587, QQZ203 ####Spun Paste Machine Operator: SHAYY MARROQUIN ([phone])[facility] ([facility])[address] [place] [address] Sodium [Moles/Vol] 139 mmol/L Normal 136-145 [facility] Comment on above: Performed By: #### L AB15, HBV440, FOV297 ####Spun Paste Machine Operator: SHAYY MARROQUIN ([phone])[facility] ([facility])[address] [place] [address] Urea nitrogen [Mass/Vol] 11 mg/dL Normal 9-23 [facility] Comment on above: Performed By: #### L AB15, NYF557, XCA820 ####Spun Paste Machine Operator: SHAYY MARROQUIN ([phone])[facility])[address] [place] [address] Basic metabolic 1998 panelon 06-01-2025 Anion gap [Moles/Vol] 5 mmol/L 3 - 13 mmol/L [facility] Calcium [Mass/Vol] 8.4 mg/dL Low 8.8 - 10. 0 mg/dL [facility] Chloride [Moles/Vol] 109 mmol/L High 98 - 10 7 mmol/L [facility] CO2 [Moles/Vol] 25 mmol/L 23 - 31 mmol/L [facility] Creatinine [Mass/Vol] 1.01 mg/dL 0.57 - 1.11 mg/dL [facility] GFR/1.73 sq M.predicted (S/P/Bld) [Vol rate/Area] 55.7 mL/min Low - PINF [facility] Glucose [Mass/Vol] 76 mg/dL Low 82 - 115 mg/dL [facility] Interpretation and review of laboratory results Abnormal [facility] Potassium [Moles/Vol] 3.5 mmol/L 3.5 - 5.1 mmol/L [facility] Sodium [Moles/Vol] 139 mmol/L 136 - 145 mmol/L [facility] Urea nitrogen [Mass/Vol] 11 mg/dL 9 - 23 mg/dL [facility] ECG 12-LEADon 06-01-2025 ECG 12-LEAD IMPRESSION: Sinus bradycardia Nonspecific T abnrm, anterolateral leads Borderline prolonged QT interval Electronically Signed On 06-01-2025 21:07:10 EDT by Rafat Wolfe Normal [facility] Laboratory - Chemistry and C hemistry - challengeon 06-01-2025 Magnesium [Mass/Vol] 1.8 mg/dL 1.6 - 2 .6 mg/dL [facility] MAGNESIUMon 06-01-2025 Magnesium [Mass/Vol] 1.8 mg/dL Normal 1.6-2.6 [facility] Comment on above: Result Comment: ESPERANZA Abarca COMMENTS:Higher values can be expected in females during menses. Performed By: #### L AB15, [id number], YJD614 ####[employer] P[employer] Machine Operator: SHAYY MARROQUIN ([phone])[address] MR Brain WO contraston 06-01 [facility] Magnesium [Mass/Vol]on 06-01 Interpretation and review of laboratory results Normal [facility] No Panel InformationOrdered By: Rafat Wolfe on 06-01-2025 Heart Rate 55 bpm [facility] Work [facility]: P [place] 42 degrees [facility] Work Phone: TX Interval 179 ms [facility] Work Phone: QRS [place] 42 degrees [facility] Work Phone: QRSD Interval 96 ms [facility] Work Phone: QT Interval 515 ms [facility] Work Phone: QTC Interval 495 ms [facility] Work Phone: T Wave [place] 75 degrees [facility] Work Phone: [facility] Work Phone: No Panel Informationon 06-01 CV EPIPHANY [facility] PHOSPHORUSon 06-01-2025 Phosphate [Mass/Vol] 2.5 mg/dL Normal 2.3-4.7 [facility] Comment on above: Performed By: #### Vincent CAMARA15, [id number], [id number] ####[employer] P[employer] Machine Operator: SHAYY MARROQUIN ([phone])[facility] ([facility])[address] [place] [address] [place] Phosphate [Moles/Vol]on 05-19 Interpretation and review of laboratory results Normal [facility] Phosphate [Mass/Vol] 2.5 mg/dL 2.3 - 4 .7 mg/dL [facility] Progress Noteon 06-01-2025 Progress Note Normal [facility] Progress Note Normal [facility] Progress Note Normal [facility] Progress Note Normal [facility] Progress Note Normal [facility] BASIC METABOLIC PANELon 05-19 Anion gap [Moles/Vol] 8 mmol/L Normal 3-13 [facility] Comment on above: Performed By: #### Vincent JEFFERS, [id number], LAB15 ####[employer] P[employer] Machine Operator: SHAYY MARROQUIN ([phone])[facility] ([facility])[address] [place] [address] [place] Calcium [Mass/Vol] 7.4 mg/dL Low 8.8-10.0 [facility] Comment on above: Performed By: #### Vincent JEFFERS, [id number], LAB15 ####[employer] P[employer] Machine Operator: SHAYY MARROQUIN ([phone])[facility] ([facility])[address] [place] [address] [place] Chloride [Moles/Vol] 112 mmol/L High 98-107 [facility] Comment on above: Performed By: #### L AB103, DHS895, LAB15 ####[employer] Operator: SHAYY MARROQUIN ([phone])[facility] ([facility])[address] [place] [address] [place] CO2 [Moles/Vol] 20 mmol/L Low 23-31 [facility] Comment on above: Performed By: #### L AB103, ODF113, LAB15 ####[employer] P[employer] Machine Operator: SHAYY MARROQUIN ([phone])[facility])[address] [place] [address] Creatinine [Mass/Vol] 1.03 mg/dL Normal 0.57-1.11 [facility] Comment on above: Performed By: #### L AB103, PQA430, LAB15 ####[employer] Operator: SHAYY MARROQUIN ([phone])[facility])[address] [place] [address] GLOMERULAR FILTRATION RATE ML/MIN/1.73 SQ M.PREDICTED 54.4 mL/min/1.73m*2 Low >60.0 [facility] Comment on above: Result Comment: Calc ulation based on the Chronic Kidney Disease Epidemiology Collaboration (CKD-EPI) equation refit without adjustment for race Performed By: #### Vincent AB103, [id number], LAB15 ####[employer] Operator: SHAYY MARROQUIN ([phone])[facility])[address] [place] [address] Glucose [Mass/Vol] 74 mg/dL Low 82-115 [facility] Comment on above: Performed By: #### Vincent AB103, OWK420, LAB15 ####[employer] Operator: SHAYY MARROQUIN ([phone])[address] Potassium [Moles/Vol] 3.4 mmol/L Low 3.5-5.1 [facility] Comment on above: Result Comment: [facility] potassium values may be up to 0.5 mmol/L lower than serum values. Performed By: #### L AB103, OMN672, LAB15 ####[employer] P[employer] Machine Operator: SHAYY MARROQUIN ([phone])[facility])[address] [place] [address] Sodium [Moles/Vol] 140 mmol/L Normal 136-145 [facility] Comment on above: Performed By: #### L AB103, FDI881, LAB15 ####[employer] P[employer] Machine Operator: SHAYY [phone])[facility] ([facility])[address] [place] [address] Urea nitrogen [Mass/Vol] 13 mg/dL Normal 9-23 [facility] Comment on above: Performed By: #### L AB103, ISG067, LAB15 ####[employer] Operator: SHAYY MARROQUIN ([phone])[facility] ([facility])[address] [place] [address] Basic metabolic 1998 panelon 05-31-2025 Anion gap [Moles/Vol] 8 mmol/L 3 - 13 mmol/L [facility] Calcium [Mass/Vol] 7.4 mg/dL Low 8.8 - 10. 0 mg/dL [facility] Chloride [Moles/Vol] 112 mmol/L High 98 - 10 7 mmol/L [facility] CO2 [Moles/Vol] 20 mmol/L Low 23 - 31 mmol/L [facility] Creatinine [Mass/Vol] 1.03 mg/dL 0.57 - 1.11 mg/dL [facility] GFR/1.73 sq M.predicted (S/P/Bld) [Vol rate/Area] 54.4 mL/min Low - PINF [facility] Glucose [Mass/Vol] 74 mg/dL Low 82 - 115 mg/dL [facility] Interpretation and review of laboratory results Abnormal [facility] Potassium [Moles/Vol] 3.4 mmol/L Low 3.5 - 5.1 mmol/L [facility] Sodium [Moles/Vol] 140 mmol/L 136 - 145 mmol/L [facility] Urea nitrogen [Mass/Vol] 13 mg/dL 9 - 23 mg/dL [facility] CT HEAD WO IV CONTRASTon CT HEAD WO IV CONTRAST Normal [facility] CT Head WO contraston 2024 [facility] RADIOLOGY [facility]IOLOGY [facility] Radiology Study observation (narrative) [facility] CT Head WO contrastOrdered B y: Bigg Alarcon on 05-31-2025 [facility] Work Phone: Laboratory - Chemistry and C hemistry - challengeon 05-31-2025 Magnesium [Mass/Vol] 1.7 mg/dL 1.6 - 2 .6 mg/dL [facility] MAGNESIUMon 05-31-2025 Magnesium [Mass/Vol] 1.7 mg/dL Normal 1.6-2.6 [facility] Comment on above: Result Comment: ESPERANZA R COMMENTS:Higher values can be expected in females during menses. Performed By: #### L [id number], [id number], LAB15 ####Spun Paste Machine Operator: SHAYY MARROQUIN ([phone])[facility] ([facility])[address] [place] [address] MR Brain WO contraston 05-31 Radiology Study observation (narrative) [facility] Magnesium [Mass/Vol]on 05-31 [facility] No Panel Informationon 05-31 Interpretation and review of laboratory results Normal [facility] Nursing Noteon 05-31-2025 Nursing Note Normal [facility] PHOSPHORUSon 05-31-2025 Phosphate [Mass/Vol] 3.3 mg/dL Normal 2.3-4.7 [facility] Comment on above: Performed By: #### L [id number], [id number], LAB15 ####Spun Paste Machine Operator: SHAYY MARROQUIN ([phone])[facility] ([facility])[address] [place] [address] Phosphate [Moles/Vol]on 05-19 Phosphate [Mass/Vol] 3.3 mg/dL 2.3 - 4 .7 mg/dL [facility] Progress Noteon 05-31-2025 Progress Note Normal [facility] Progress Note Normal [facility] Progress Note Nutrition update com pleted. Chart reviewed. Patient to be monitored and followed by the diet natural gas technician. Dietitian available upon request. VICK Peña Normal [facility] Progress Note Normal [facility] [id number] 05-30-2025 [id number] Normal [facility] [id number] 05-30-2025 [id number] Normal [facility] BASIC METABOLIC PANELon 05-19 Anion gap [Moles/Vol] 7 mmol/L Normal 11-28 [facility] Comment on above: Performed By: #### L [id number], [id number] ####Spun Paste Machine Operator: SHAYY MARROQUIN ([id number])[facility] ([facility])[address] [place] [address] Calcium [Mass/Vol] 8.0 mg/dL Low 8.8-10.0 [facility] Comment on above: Performed By: #### L [id number], [id number] ####Spun Paste Machine Operator: SHAYY MARROQUIN ([phone])[facility])[address] [place] [address] Chloride [Moles/Vol] 111 mmol/L High 98-107 [facility] Comment on above: Performed By: #### L [id number], LAB15 ####Spun Paste Machine Operator: SHAYY MARROQUIN ([phone])[facility])[address] [place] [address] CO2 [Moles/Vol] 19 mmol/L Low 23-31 [facility] Comment on above: Performed By: #### L [id number], LAB15 ####Spun Paste Machine Operator: SHAYY MARROQUIN ([id number])[facility])[address] [place] [address] Creatinine [Mass/Vol] 1.08 mg/dL Normal 0.57-1.11 [facility] Comment on above: Performed By: #### L [id number], [id number] ####Spun Paste Machine Operator: SHAYY MARROQUIN ([phone])[facility])[address] [place] [address] GLOMERULAR FILTRATION RATE ML/MIN/1.73 SQ M.PREDICTED 51.4 mL/min/1.73m*2 Low >60.0 [facility] Comment on above: Result Comment: Calc ulation based on the Chronic Kidney Disease Epidemiology Collaboration (CKD-EPI) equation refit without adjustment for race Performed By: #### L [id number], [id number] ####Spun Paste Machine Operator: SHAYY MARROQUIN ([phone])[facility])[address] [place] [address] Glucose [Mass/Vol] 101 mg/dL Normal 82-115 [facility] Comment on above: Performed By: #### L [id number], [id number] ####Spun Paste Machine Operator: SHAYY [id number])[facility] ([facility])[address] [place] [address] Potassium [Moles/Vol] 3.7 mmol/L Normal 3.5-5.1 [facility] Comment on above: Result Comment: [place] [facility] potassium values may be up to 0.5 mmol/L lower than serum values. Performed By: #### L [id number], [id number] ####Spun Paste Machine Operator: SHAYY MARROQUIN ([phone])[facility] ([facility])[address] [place] [address] Sodium [Moles/Vol] 137 mmol/L Normal 136-145 [facility] Comment on above: Performed By: #### L [id number], [id number] ####Spun Paste Machine Operator: SHAYY MARROQUIN ([phone])[facility] ([facility])[address] [place] [address] Urea nitrogen [Mass/Vol] 15 mg/dL Normal 9-23 [facility] Comment on above: Performed By: #### L [id number], [id number] ####Sp[employer] Paste Machine Operator: SHAYY MARROQUIN ([phone])[facility] ([facility])[address] [place] [address] Anion gap [Moles/Vol] 5 mmol/L Normal 3-13 [facility] Comment on above: Performed By: #### L AB103, LAB15, [id number], [id number] ####Spun Paste Machine Operator: SHAYY MARROQUIN ([phone])[facility] ([facility])[address] [place] [address] Calcium [Mass/Vol] 8.3 mg/dL Low 8.8-10.0 [facility] Comment on above: Performed By: #### L AB103, LAB15, [id number], [id number] ####Sp[employer] Paste Machine Operator: SHAYY MARROQUIN ([phone])[facility] ([facility])[address] [place] [address] [place] Chloride [Moles/Vol] 109 mmol/L High 98-107 [facility] Comment on above: Performed By: #### L AB103, LAB15, [id number], [id number] ####Spun Paste Machine Operator: SHAYY MARROQUIN ([phone])[facility])[address] [place] [address] CO2 [Moles/Vol] 22 mmol/L Low 23-31 [facility] Comment on above: Performed By: #### L AB103, LAB15, [id number], [id number] ####Sp[employer] Paste Machine Operator: SHAYY MARROQUIN ([phone])[facility])[address] [place] [address] Creatinine [Mass/Vol] 1.15 mg/dL High 0.57-1.11 [facility] Comment on above: Performed By: #### L AB103, LAB15, [id number], [id number] ####Spun Paste Machine Operator: SHAYY MARROQUIN ([phone])[facility])[address] [place] [address] GLOMERULAR FILTRATION RATE ML/MIN/1.73 SQ M.PREDICTED 47.7 mL/min/1.73m*2 Low >60.0 [facility] Comment on above: Result Comment: Calc ulation based on the Chronic Kidney Disease Epidemiology Collaboration (CKD-EPI) equation refit without adjustment for race Performed By: #### L AB103, LAB15, [id number], [id number] ####Spun Paste Machine Operator: SHAYY MARROQUIN ([phone])[facility])[address] [place] [address] Glucose [Mass/Vol] 109 mg/dL Normal 82-115 [facility] Comment on above: Performed By: #### L AB103, LAB15, [id number], [id number] ####Sp[employer] Paste Machine Operator: SHAYY MARROQUIN ([id number])[place] [address] [place] Potassium [Moles/Vol] 4.0 mmol/L Normal 3.5-5.1 [facility] Comment on above: Result Comment: [facility] potassium values may be up to 0.5 mmol/L lower than serum values. Performed By: #### L AB103, LAB15, [id number], [id number] ####Spun Paste Machine Operator: SHAYY MARROQUIN ([id number])[facility] ([facility])[address] [place] [address] Sodium [Moles/Vol] 136 mmol/L Normal 136-145 [facility] Comment on above: Performed By: #### L AB103, LAB15, [id number], [id number] ####Spun Paste Machine Operator: SHAYY MARROQUIN ([id number])[facility] ([facility])[address] [place] [address] Urea nitrogen [Mass/Vol] 15 mg/dL Normal 9-23 [facility] Comment on above: Performed By: #### L AB103, LAB15, [id number], [id number] ####Spun Paste Machine Operator: SHAYY MARROQUIN ([id number])[facility] ([facility])[address] [place] [address] Basic metabolic 1998 panelon 05-30-2025 Anion gap [Moles/Vol] 7 mmol/L 3 - 13 mmol/L [facility] Calcium [Mass/Vol] 8 mg/dL Low 8.8 - 10. 0 mg/dL [facility] Chloride [Moles/Vol] 111 mmol/L High 98 - 10 7 mmol/L [facility] CO2 [Moles/Vol] 19 mmol/L Low 23 - 31 mmol/L [facility] Creatinine [Mass/Vol] 1.08 mg/dL 0.57 - 1.11 mg/dL [facility] GFR/1.73 sq M.predicted (S/P/Bld) [Vol rate/Area] 51.4 mL/min Low - PINF [facility] Glucose [Mass/Vol] 101 mg/dL 82 - 115 mg/dL [facility] Interpretation and review of laboratory results Abnormal [facility] Potassium [Moles/Vol] 3.7 mmol/L 3.5 - 5.1 mmol/L [facility] Sodium [Moles/Vol] 137 mmol/L 136 - 145 mmol/L [facility] Urea nitrogen [Mass/Vol] 15 mg/dL 9 - 23 mg/dL [facility] Anion gap [Moles/Vol] 5 mmol/L 3 - 13 mmol/L [facility] Calcium [Mass/Vol] 8.3 mg/dL Low 8.8 - 10. 0 mg/dL [facility] Chloride [Moles/Vol] 109 mmol/L High 98 - 10 7 mmol/L [facility] CO2 [Moles/Vol] 22 mmol/L Low 23 - 31 mmol/L [facility] Creatinine [Mass/Vol] 1.15 mg/dL High 0.57 - 1.11 mg/dL [facility] GFR/1.73 sq M.predicted (S/P/Bld) [Vol rate/Area] 47.7 mL/min Low - PINF [facility] Glucose [Mass/Vol] 109 mg/dL 82 - 115 mg/dL [facility] Interpretation and review of laboratory results Abnormal [facility] Potassium [Moles/Vol] 4 mmol/L 3.5 - 5.1 mmol/L [facility] Sodium [Moles/Vol] 136 mmol/L 136 - 145 mmol/L [facility] Urea nitrogen [Mass/Vol] 15 mg/dL 9 - 23 mg/dL [facility] CBC (HEMOGRAM)on 05-30-2025 Erythrocyte distribution width (RBC) [Ratio] 13.0 % Normal 11.5-15.0 [facility] Comment on above: Performed By: #### L [id number] ####Sp[employer] Paste Machine Operator: SHAYY MARROQUIN ([phone])[address] Hematocrit (Bld) [Volume fraction] 34.0 % Low 35.0-47.0 [facility] Comment on above: Performed By: #### L [id number] ####Spun Paste Machine Operator: SHAYY MARROQUIN ([phone])[facility])[address] [place] [address] Hemoglobin (Bld) [Mass/Vol] 11.4 g/dL Low 11.7-16.0 [facility] Comment on above: Performed By: #### L [id number] ####Spun Paste Machine Operator: SHAYY MARROQUIN ([phone])[facility])[address] [place] [address] MCH (RBC) [Entitic mass] 31.1 pg Normal 26.0-34.0 [facility] Comment on above: Performed By: #### L [id number] ####Spun Paste Machine Operator: SHAYY [id number])[facility] ([facility])[address] [place] [address] MCHC 33.5 % Normal 30.5-36.0 [facility] Comment on above: Performed By: #### L [id number] ####Sp[employer] Paste Machine Operator: SHAYY MARROQUIN ([phone])[facility] ([facility])[address] [place] [address] MCV (RBC) [Entitic vol] 92.9 fL Normal 77.0-99.0 [facility] Comment on above: Performed By: #### L [id number] ####Sp[employer] P[employer] Machine Operator: SHAYY MARROQUIN ([phone])[facility] ([facility])[address] [place] [address] Platelet mean volume (Bld) [Entitic vol] 10.0 fL Normal 9.0-12.7 [facility] Comment on above: Performed By: #### L [id number] ####Spun P[employer] Machine Operator: SHAYY MARROQUIN ([id number])[facility] ([facility])[address] [place] [address] Platelets (Bld) [#/Vol] 164 10*3/uL Normal 140-440 [facility] Comment on above: Performed By: #### L [id number] ####[employer] P[employer] Machine Operator: SHAYY MARROQUIN ([phone])[facility] ([facility])[address] [place] [address] RBC (Bld) [#/Vol] 3.66 10*6/uL Low 3.80-5.20 [facility] Comment on above: Performed By: #### L [id number] ####Spun Paste Machine Operator: SHAYY MARROQUIN ([phone])[facility] ([facility])[address] [place] [address] [place] WBC (Bld) [#/Vol] 9.5 10*3/uL Normal 3.6-10.7 [facility] Comment on above: Performed By: #### L [id number] ####Spun Paste Machine Operator: SHAYY MARROQUIN ([id number])[facility] ([facility])[address] [place] [address] CBC panel Auto (Bld)on 05-30 Erythrocyte distribution width (RBC) [Ratio] 13 % 11.5 - 15.0 % [facility] Hematocrit (Bld) [Volume fraction] 34 % Low 35.0 - 47.0 % [facility] Hemoglobin (Bld) [Mass/Vol] 11.4 g/dL Low 11.7 - 16.0 g/dL [facility] Interpretation and review of laboratory results Abnormal [facility] MCH (RBC) [Entitic mass] 31.1 pg 26.0 - 34.0 pg [facility] MCHC (RBC) [Mass/Vol] 33.5 % 30.5 - 36.0 % [facility] MCV (RBC) [Entitic vol] 92.9 fL 77.0 - 99.0 fL [facility] Platelet mean volume (Bld) [Entitic vol] 10 fL 9.0 - 12.7 fL [facility] Platelets (Bld) [#/Vol] 164 10*3/uL 140 - 440 10*3/uL [facility] RBC (Bld) [#/Vol] 3.66 10*6/uL Low 3.80 - 5.20 10*6/uL [facility] WBC (Bld) [#/Vol] 9.5 10*3/uL 3.6 - 10.7 10*3/uL [facility] CT HEAD NECK ANGIO W AND WO IV CONTRASTon 05-30-2025 CT HEAD NECK ANGIO W AND WO IV CONTRAST Normal [facility] CT HEAD WO IV CONTRASTon CT HEAD WO IV CONTRAST Normal [facility] CT Head WO contraston 2024 [facility] Radiology Study observation (narrative) [facility] CT Head WO contrastOrdered B y: Ganesh Chávez on 05-30-2025 [facility] Work Phone: CT PERFUSIONon 05-30-2025 CT PERFUSION Normal [facility] Consulton 05-30-2025 Consult Normal [facility] HIGH SENSITIVITY TROPONIN, S ERIAL BASELINEon 05-30-2025 TROPONIN HS SERIAL BASELINE 8 ng/L Normal <=14 [facility] Comment on above: Result Comment: In i ndividuals presenting with symptoms > 2h, a baseline troponin <= 5 ng/L suggests acutecardiac injury is unlikely and further serial testing is generally not indicated. Performed By: #### L AB103, LAB15, [id number], [id number] ####Spun Paste Machine Operator: SHAYY MARROQUIN ([phone])[facility] ([facility])[address] [place] [address] HIGH SENSITIVITY TROPONIN, S ERIAL, SECOND TESTon 05-30-2025 2H TROPONIN HS (SERIAL 2ND TROPONIN) 9 ng/L Normal <=14 [facility] Comment on above: Result Comment: 2h t roponin (2nd troponin) samples collected between 1h 40 min and 2h and 20 min of the baseline collection time can be utilized to interpret delta troponins as per [facility] algorithms. Samples collected outside this timeframe need to be interpreted clinically.Rising or falling troponin delta below 2 ng/L as compared to baseline value suggests thatacute cardiac injury is unlikely. Performed By: #### L [id number], [id number] ####Spun Paste Machine Operator: SHAYY MARROQUIN ([phone])[facility] ([facility])[address] [place] [address] Laboratory - Chemistry and C hemistry - challengeon 05-30-2025 Magnesium [Mass/Vol] 1.7 mg/dL 1.6 - 2 .6 mg/dL [facility] Glucose [Mass/Vol] 114 mg/dL High 70 - 100 mg/dL [facility] Laboratory - Coagulationon 0 05-30-2025 aPTT Coag (PPP) [Time] 26 s 20.0 - 30.5 s [facility] INR Coag (PPP) [Relative time] 1 {INR} 0.9 - 1.1 [facility] PT Coag (Bld) [Time] 10.8 s 9.0 - 1 2.0 s [facility] MAGNESIUMon 05-30-2025 Magnesium [Mass/Vol] 1.7 mg/dL Normal 1.6-2.6 [facility] Comment on above: Result Comment: ESPERANZA R COMMENTS:Higher values can be expected in females during menses. Performed By: #### L AB103, LAB15, [id number], [id number] ####Spun Paste Machine Operator: SHAYY MARROQUIN ([phone])[facility])[address] [place] [address] [place] Magnesium [Mass/Vol]on 05-30 [facility] No Panel Informationon 05-30 2h Troponin HS (Serial 2nd Troponin) 9 ng/L NINF - 14 ng/L [facility] Interpretation and review of laboratory results Normal [facility] Interpretation and review of laboratory results Normal [facility] Troponin HS Serial Baseline 8 ng/L NINF - 14 ng/L [facility] Interpretation and review of laboratory results Normal [facility] Interpretation and review of laboratory results Normal [facility] RADIOLOGY SYSTEM [facility] RADIOLOGY SYSTEM [facility] Radiology Study observation (narrative) [facility] Interpretation and review of laboratory results Abnormal [facility] Nursing Noteon 05-30-2025 Nursing Note Normal [facility] Nursing Note Responses that docto rs messaged are all ok with blood pressure Normal [facility] Nursing Note Normal [facility] Nursing Note MRI called and they do not need the form filled out again since patient just had MRI couple days ago. They are aware of recent carotid endarterectomy Normal [facility] Nursing Note Normal [facility] Nursing Note Normal [facility] PHOSPHORUSon 05-30-2025 Phosphate [Mass/Vol] 4.6 mg/dL Normal 2.3-4.7 [facility] Comment on above: Performed By: #### L AB103, LAB15, [id number], [id number] ####Spun Paste Machine Operator: SHAYY MARROQUIN ([id number])[facility] ([facility])[address] [place] [address] [place] PROTIME AND APTTon 5 aPTT Coag (Bld) [Time] 26.0 s Normal 20.0-30.5 [facility] Comment on above: Performed By: #### L [id number] ####Spun Paste Machine Operator: SHAYY MARROQUIN ([phone])[facility] ([facility])[address] [place] [address] INR Coag (PPP) [Relative time] 1.0 {INR} Normal 0.9-1.1 [facility] Comment on above: Result Comment: Jaevd mmended Anticoagulant Therapy: SEE BELOW----- INR of 2.0 - 3.0 : - Prophylaxis of Venous Thrombosis (high-risk surgery) - Treatment of Venous Thrombosis - Treatment of Pulmonary Embolism (Includes tissue heart valves, Acute Myocardial Infarction to prevent systemic embolism, Valvular Heart Disease, and Atrial Fibrillation)----- INR of 2.5 - 3.5 : - Mechanical Prosthetic Valves (high risk) - If oral anticoagulant therapy is used to prevent Myocardial Infarction Performed By: #### L [id number] ####Spun Paste Machine Operator: SHAYY MARROQUIN ([phone])[facility] ([facility])[address] [place] [address] PT Coag (PPP) [Time] 10.8 s Normal 9.0-12.0 [facility] Comment on above: Performed By: #### L [id number] ####Spun Paste Machine Operator: SHAYY MARROQUIN ([phone])[facility] ([facility])[address] [place] [address] Phosphate [Moles/Vol]on 05-19 Phosphate [Mass/Vol] 4.6 mg/dL 2.3 - 4 .7 mg/dL [facility] Progress Noteon 05-30-2025 Progress Note Normal [facility] Progress Note Normal [facility] Progress Note Normal [facility] Progress Note Normal [facility] Progress Note Normal [facility] Progress Note Normal [facility] Progress Note Normal [facility] Progress Note Normal [facility] [id number] 05-29-2025 [id number] Normal [facility] [id number] 05-29-2025 [id number] [facility] rehab is the F OC per the niece hcpoa- she does have a snf list for back up - [facility] has accepted pending auth and medical stability , OR vascular today .. Normal [facility] ABO and Rh group Confirm Nom (Bld)on 05-29-2025 ABO group Nom (Bld) A [facility] D Ag Ql (RBC) Positive [facility] Anesthesia Noteon 05-29-2025 Anesthesia Note Normal [facility] BASIC METABOLIC PANELon 09- Anion gap [Moles/Vol] 7 mmol/L Normal 3-13 [facility] Comment on above: Performed By: #### L AB103, LAB15 ####Spun Paste Machine Operator: SHAYY MARROQUIN ([phone])[facility])[address] [place] [address] Calcium [Mass/Vol] 8.5 mg/dL Low 8.8-10.0 [facility] Comment on above: Performed By: #### L AB103, LAB15 ####Spun Paste Machine Operator: SHAYY MARROQUIN ([phone])[facility])[address] [place] [address] Chloride [Moles/Vol] 109 mmol/L High 98-107 [facility] Comment on above: Performed By: #### L AB103, LAB15 ####Spun Paste Machine Operator: SHAYY MARROQUIN ([phone])[facility])[address] [place] [address] CO2 [Moles/Vol] 25 mmol/L Normal 23-31 [facility] Comment on above: Performed By: #### L AB103, LAB15 ####Spun Paste Machine Operator: SHAYY MARROQUIN ([phone])[facility] ([facility])[address] [place] [address] Creatinine [Mass/Vol] 1.26 mg/dL High 0.57-1.11 [facility] Comment on above: Performed By: #### L AB103, LAB15 ####Spun Paste Machine Operator: SHAYY MARROQUIN ([phone])[facility])[address] [place] [address] GLOMERULAR FILTRATION RATE ML/MIN/1.73 SQ M.PREDICTED 42.7 mL/min/1.73m*2 Low >60.0 [facility] Comment on above: Result Comment: Calc ulation based on the Chronic Kidney Disease Epidemiology Collaboration (CKD-EPI) equation refit without adjustment for race Performed By: #### L AB103, LAB15 ####Spun Paste Machine Operator: SHAYY MARROQUIN ([phone])[facility] ([facility])[address] [place] [address] Glucose [Mass/Vol] 77 mg/dL Low 82-115 [facility] Comment on above: Performed By: #### L AB103, LAB15 ####Spun Paste Machine Operator: SHAYY MARROQUIN ([phone])[facility])[address] [place] [address] Potassium [Moles/Vol] 3.4 mmol/L Low 3.5-5.1 [facility] Comment on above: Result Comment: [facility] potassium values may be up to 0.5 mmol/L lower than serum values. Performed By: #### L AB103, LAB15 ####Spun Paste Machine Operator: SHAYY MARROQUIN ([phone])[facility])[address] [place] [address] Sodium [Moles/Vol] 141 mmol/L Normal 136-145 [facility] Comment on above: Performed By: #### L AB103, LAB15 ####Spun Paste Machine Operator: SHAYY MARROQUIN ([phone])[facility])[address] [place] [address] Urea nitrogen [Mass/Vol] 15 mg/dL Normal 9-23 [facility] Comment on above: Performed By: #### L AB103, LAB15 ####Spun Paste Machine Operator: SHAYY MARROQUIN ([phone])[facility])[address] [place] [address] BLOOD TYPE AND SCREEN GELon 05-29-2025 ABO GROUPING A Normal [facility] Comment on above: Performed By: #### L [id number] ####Spun Paste Machine Operator: SHAYY MARROQUIN ([phone])[facility] ([facility])[address] [place] [address] RH TYPE IN BLOOD Positive Normal [facility] Comment on above: Performed By: #### L [id number] ####Spun Paste Machine Operator: SHAYY MARROQUIN ([phone])[facility] ([facility])[address] [place] [address] [place] Basic metabolic 1998 panelon 05-29-2025 Anion gap [Moles/Vol] 7 mmol/L 3 - 13 mmol/L [facility] Calcium [Mass/Vol] 8.5 mg/dL Low 8.8 - 10. 0 mg/dL [facility] Chloride [Moles/Vol] 109 mmol/L High 98 - 10 7 mmol/L [facility] CO2 [Moles/Vol] 25 mmol/L 23 - 31 mmol/L [facility] Creatinine [Mass/Vol] 1.26 mg/dL High 0.57 - 1.11 mg/dL [facility] GFR/1.73 sq M.predicted (S/P/Bld) [Vol rate/Area] 42.7 mL/min Low - PINF [facility] Glucose [Mass/Vol] 77 mg/dL Low 82 - 115 mg/dL [facility] Interpretation and review of laboratory results Abnormal [facility] Potassium [Moles/Vol] 3.4 mmol/L Low 3.5 - 5.1 mmol/L [facility] Sodium [Moles/Vol] 141 mmol/L 136 - 145 mmol/L [facility] Urea nitrogen [Mass/Vol] 15 mg/dL 9 - 23 mg/dL [facility] Blood type and Crossmatch pa juan jose (Bld)on 05-29-2025 ABO group Nom (Bld) A [facility] Blood group antibody screen GEL Ql Negative [facility] D Ag Ql (RBC) Positive [facility] CBC W Auto Differential pane l (Bld)on 05-29-2025 Basophils (Bld) [#/Vol] 0 10*3/uL 0.0 - 0.2 10*3/uL [facility] Basophils/100 WBC (Bld) 0.3 % 0.0 - 2.0 % [facility] Eosinophils (Bld) [#/Vol] 0.2 10*3/uL 0.0 - 0.5 10*3/uL [facility] Eosinophils/100 WBC (Bld) 3 % 0.0 - 6.0 % [facility] Erythrocyte distribution width (RBC) [Ratio] 13.1 % 11.5 - 15.0 % [facility] Hematocrit (Bld) [Volume fraction] 38.6 % 35.0 - 47.0 % [facility] Hemoglobin (Bld) [Mass/Vol] 13.1 g/dL 11.7 - 16.0 g/dL [facility] Immature granulocytes (Bld) [#/Vol] 0 10*3/uL NINF - 0.1 10*3/uL [facility] [employer] Immature granulocytes/100 WBC (Bld) 0.3 % 0.0 - 2.0 % [facility] Interpretation and review of laboratory results Normal [facility] Lymphocytes (Bld) [#/Vol] 2.1 10*3/uL 1.0 - 4.3 10*3/uL [facility] Lymphocytes/100 WBC (Bld) 27.4 % 15.0 - 45.0 % [facility] MCH (RBC) [Entitic mass] 31.4 pg 26.0 - 34.0 pg [facility] MCHC (RBC) [Mass/Vol] 33.9 % 30.5 - 36.0 % [facility] MCV (RBC) [Entitic vol] 92.6 fL 77.0 - 99.0 fL [facility] Monocytes (Bld) [#/Vol] 0.7 10*3/uL 0.0 - 0.9 10*3/uL [facility] Monocytes/100 WBC (Bld) 8.8 % 5.0 - 13.0 % [facility] Neutrophils (Bld) [#/Vol] 4.7 10*3/uL 1.8 - 7.5 10*3/uL [facility] Neutrophils/100 WBC (Bld) 60.2 % 38.0 - 82.0 % [facility] Nucleated RBC/100 WBC (Bld) [Ratio] 0 % [facility] Platelet mean volume (Bld) [Entitic vol] 9.9 fL 9.0 - 12.7 fL [facility] Platelets (Bld) [#/Vol] 211 10*3/uL 140 - 440 10*3/uL [facility] RBC (Bld) [#/Vol] 4.17 10*6/uL 3.80 - 5.20 10*6/uL [facility] WBC (Bld) [#/Vol] 7.7 10*3/uL 3.6 - 10.7 10*3/uL [facility] CBC WITH AUTO DIFFERENTIALon 05-29-2025 Basophils (Bld) [#/Vol] 0.0 10*3/uL Normal 0.0-0.2 [facility] Comment on above: Performed By: #### L [id number] ####[employer] P[employer] Machine Operator: SHAYY MARROQUIN ([phone])[facility])[address] [place] [address] Basophils/100 WBC (Bld) 0.3 % Normal 0.0-2.0 [facility] Comment on above: Performed By: #### L [id number] ####[employer] P[employer] Machine Operator: SHAYY MARROQUIN ([phone])[facility])[address] [place] [address] Eosinophils (Bld) [#/Vol] 0.2 10*3/uL Normal 0.0-0.5 [facility] Comment on above: Performed By: #### L [id number] ####[employer] P[employer] Machine Operator: SHAYY MARROQUIN ([phone])[facility])[address] [place] [address] Eosinophils/100 WBC (Bld) 3.0 % Normal 0.0-6.0 [facility] Comment on above: Performed By: #### L [id number] ####[employer] P[employer] Machine Operator: SHAYY MARROQUIN ([phone])[facility])[address] [place] [address] Erythrocyte distribution width (RBC) [Ratio] 13.1 % Normal 11.5-15.0 [facility] Comment on above: Performed By: #### L [id number] ####[employer] P[employer] Operator: SHAYY MARROQUIN ([phone])[address] Hematocrit (Bld) [Volume fraction] 38.6 % Normal 35.0-47.0 [facility] Comment on above: Performed By: #### L [id number] ####[employer] P[employer] Machine Operator: SHAYY MARROQUIN ([phone])[facility])[address] [place] [address] Hemoglobin (Bld) [Mass/Vol] 13.1 g/dL Normal 11.7-16.0 [facility] Comment on above: Performed By: #### L [id number] ####[employer] P[employer] Operator: SHAYY MARROQUIN ([phone])[facility])[address] [place] [address] IMMATURE GRANS % 0.3 % Normal 0.0-2.0 [facility] Comment on above: Performed By: #### L [id number] ####[employer] P[employer] Machine Operator: SHAYY MARROQUIN ([phone])[facility])[address] [place] [address] IMMATURE GRANS ABSOLUTE 0.0 10*3/uL Normal <0.1 [facility] Comment on above: Performed By: #### L [id number] ####[employer] Machine Operator: SHAYY MARROQUIN ([phone])[facility])[address] [place] [address] Lymphocytes (Bld) [#/Vol] 2.1 10*3/uL Normal 1.0-4.3 [facility] Comment on above: Performed By: #### L [id number] ####[employer] P[employer] Machine Operator: SHAYY MARROQUIN ([phone])[facility])[address] [place] [address] Lymphocytes/100 WBC (Bld) 27.4 % Normal 15.0-45.0 [facility] Comment on above: Performed By: #### L [id number] ####Spun Paste Machine Operator: SHAYY MARROQUIN ([phone])[facility])[address] [place] [address] MCH (RBC) [Entitic mass] 31.4 pg Normal 26.0-34.0 [facility] Comment on above: Performed By: #### L [id number] ####Spun Paste Machine Operator: SHAYY MARROQUIN ([phone])[facility])[address] [place] [address] MCHC 33.9 % Normal 30.5-36.0 [facility] Comment on above: Performed By: #### L [id number] ####Spun Paste Machine Operator: SHAYY MARROQUIN ([phone])[facility])[address] [place] [address] MCV (RBC) [Entitic vol] 92.6 fL Normal 77.0-99.0 [facility] Comment on above: Performed By: #### L [id number] ####Spun P[employer] Machine Operator: SHAYY MARROQUIN ([phone])[facility])[address] [place] [address] Monocytes (Bld) [#/Vol] 0.7 10*3/uL Normal 0.0-0.9 [facility] Comment on above: Performed By: #### L [id number] ####Spun Paste Machine Operator: SHAYY MARROQUIN ([phone])[facility] ([facility])[address] [place] [address] Monocytes/100 WBC (Bld) 8.8 % Normal 5.0-13.0 [facility] Comment on above: Performed By: #### L [id number] ####[employer] Paste Machine Operator: SHAYY MARROQUIN ([phone])[facility])[address] [place] [address] NEUTROPHILS ABSOLUTE 4.7 10*3/uL Normal 1.8-7.5 [facility] Comment on above: Performed By: #### L [id number] ####Spun Paste Machine Operator: SHAYY MARROQUIN ([phone])[facility])[address] [place] [address] Neutrophils/100 WBC (Bld) 60.2 % Normal 38.0-82.0 [facility] Comment on above: Performed By: #### L [id number] ####Sp[employer] P[employer] Machine Operator: SHAYY MARROQUIN ([phone])[facility])[address] [place] [address] NRBC 0.0 /100 WBCs Normal 0.0-2.0 [facility] Comment on above: Performed By: #### L [id number] ####Spun Paste Machine Operator: SHAYY MARROQUIN ([phone])[facility])[address] [place] [address] Platelet mean volume (Bld) [Entitic vol] 9.9 fL Normal 9.0-12.7 [facility] Comment on above: Performed By: #### L [id number] ####Spun Paste Machine Operator: SHAYY MARROQUIN ([phone])[facility] ([facility])[address] [place] [address] Platelets (Bld) [#/Vol] 211 10*3/uL Normal 140-440 [facility] Comment on above: Performed By: #### L [id number] ####Spun Paste Machine Operator: SHAYY MARROQUIN ([id number])[facility] ([facility])[address] [place] [address] RBC (Bld) [#/Vol] 4.17 10*6/uL Normal 3.80-5.20 [facility] Comment on above: Performed By: #### L [id number] ####Spun Paste Machine Operator: SHAYY MARROQUIN ([id number])[facility] ([facility])[address] [place] [address] WBC (Bld) [#/Vol] 7.7 10*3/uL Normal 3.6-10.7 [facility] Comment on above: Performed By: #### L [id number] ####Sp[employer] Paste Machine Operator: SHAYY MARROQUIN ([phone])[facility] ([facility])[address] [place] [address] Laboratory - Chemistry and C hemistry - challengeon 05-29-2025 Magnesium [Mass/Vol] 1.8 mg/dL 1.6 - 2 .6 mg/dL [facility] MAGNESIUMon 05-29-2025 Magnesium [Mass/Vol] 1.8 mg/dL Normal 1.6-2.6 [facility] Comment on above: Result Comment: ESPERANZA Abarca COMMENTS:Higher values can be expected in females during menses. Performed By: #### L AB103, LAB15 ####Spun Paste Machine Operator: SHAYY MARROQUIN ([phone])[facility])[address] [place] [address] Magnesium [Mass/Vol]on 05-29 Interpretation and review of laboratory results Normal [facility] Op Noteon 05-29-2025 Op Note Normal [facility] Progress Noteon 05-29-2025 Progress Note Patient's POA update d via phone call. Normal [facility] Progress Note Dr. Vitale at bedside to see patient. No new orders. Normal [facility] Progress Note Normal [facility] Progress Note Normal [facility] Progress Note Normal [facility] Progress Note PHYSICAL THERAPY [facility] Name/MRN: Diana Kohli ([id number]) Date: 05/29/2025 Treatment is being deferred at present because pt is currently off of the floor , vascular surgery. Ivy Simmons PTA Normal [facility] Progress Note Please call patient louis Hamilton (POA) with updates Normal [facility] Progress Note Normal [facility] [id number] 05-28-2025 [id number] Normal [facility] Anesthesia Noteon 05-28-2025 Anesthesia Note Normal [facility] ECG 12-LEADon 05-28-2025 ECG 12-LEAD IMPRESSION: Sinus bradycardia Nonspecific T abnrm, anterolateral leads PROLONGED QT INTERVAL Electronically Signed On 05-28-2025 18:16:47 EDT by Michael Liao Normal [facility] No Panel InformationOrdered By: Michael Liao on 05-28-2025 P [place] 2 degrees [facility] Work Phone: TX Interval 196 ms [facility] [employer] Work Phone: QRS [place] 22 degrees [facility] Work Phone: QRSD Interval 92 ms [facility] Work Phone: QT Interval 506 ms [employer] Work Phone: QTC Interval 459 ms [facility] Work Phone: T Wave [place] 84 degrees [facility] Work Phone: [facility] Work Phone: No Panel Informationon 05-28 CV EPIPHANY [facility] Progress Noteon 05-28-2025 Progress Note Normal [facility] Progress Note Normal [facility] Progress Note Normal [facility] Vital signsOrdered By: Michael Liao on 05-28-2025 Heart rate 49 /min bpm [facility] Work Phone: [phone] 05-27-2025 [id number] Normal [facility] Nursing Noteon 05-27-2025 Nursing Note Normal [facility] Progress Noteon 05-27-2025 Progress Note Normal [facility] Progress Note Normal [facility] Progress Note Normal [facility] [id number] 05-26-2025 [id number] Normal [facility] [id number] Normal [facility] [id number] Normal [facility] [id number] Normal [facility] [id number] Normal [facility] [id number] Normal [facility] No Panel InformationOrdered By: Kiana Hickey on 05-26-2025 Interpretation and review of laboratory results Normal [facility] PRU Test (P2Y12) 196 180 - PINF [facility] PRU TEST (P2Y12)on PRU TEST (P2Y12) 196 Normal >=180 [facility] Comment on above: Result Comment: >180 - 376 PRU [P2Y12 Reaction Units] - No drug present 10-180 PRU [P2Y12 Reaction Units] - Decreased platelet reactivity to P2Y12 inhibitor. Performed By: #### L [id number] ####Sp[employer] Paste Machine Operator: SHAYY MARROQUIN ([id number])[facility] ([facility])[address] [place] [address] Progress Noteon 05-26-2025 Progress Note Normal [facility] Progress Note Normal [facility] Progress Note Normal [facility] Progress Note Normal [facility] Progress Note Normal [facility] [id number] 05-25-2025 [id number] Normal [facility] C-REACTIVE PROTEINon 025 CRP [Mass/Vol] 16.9 mg/L High <5.0 [facility] Comment on above: Performed By: #### L AB149, LAB17 ####Spun Paste Machine Operator: SHAYY MARROQUIN ([phone])[facility] ([facility])[address] [place] [address] CBC W Auto Differential pane l (Bld)on 05-25-2025 Basophils (Bld) [#/Vol] 0 10*3/uL 0.0 - 0.2 10*3/uL [facility] Basophils/100 WBC (Bld) 0.4 % 0.0 - 2.0 % [facility] Eosinophils (Bld) [#/Vol] 0.2 10*3/uL 0.0 - 0.5 10*3/uL [facility] Eosinophils/100 WBC (Bld) 1.5 % 0.0 - 6.0 % [facility] Erythrocyte distribution width (RBC) [Ratio] 13 % 11.5 - 15.0 % [facility] Hematocrit (Bld) [Volume fraction] 40.7 % 35.0 - 47.0 % [facility] Hemoglobin (Bld) [Mass/Vol] 13.5 g/dL 11.7 - 16.0 g/dL [facility] Immature granulocytes (Bld) [#/Vol] 0 10*3/uL NINF - 0.1 10*3/uL [facility] Immature granulocytes/100 WBC (Bld) 0.4 % 0.0 - 2.0 % [facility] Interpretation and review of laboratory results Abnormal [facility] Lymphocytes (Bld) [#/Vol] 1.3 10*3/uL 1.0 - 4.3 10*3/uL [facility] Lymphocytes/100 WBC (Bld) 12.3 % Low 15.0 - 45.0 % [facility] MCH (RBC) [Entitic mass] 31.1 pg 26.0 - 34.0 pg [facility] MCHC (RBC) [Mass/Vol] 33.2 % 30.5 - 36.0 % [facility] MCV (RBC) [Entitic vol] 93.8 fL 77.0 - 99.0 fL [facility] Monocytes (Bld) [#/Vol] 0.8 10*3/uL 0.0 - 0.9 10*3/uL [facility] Monocytes/100 WBC (Bld) 7.8 % 5.0 - 13.0 % [facility] Neutrophils (Bld) [#/Vol] 8.3 10*3/uL High 1.8 - 7.5 10*3/uL [facility] Neutrophils/100 WBC (Bld) 77.6 % 38.0 - 82.0 % [facility] Nucleated RBC/100 WBC (Bld) [Ratio] 0 % [facility] [employer] Platelet mean volume (Bld) [Entitic vol] 9.7 fL 9.0 - 12.7 fL [facility] Platelets (Bld) [#/Vol] 203 10*3/uL 140 - 440 10*3/uL [facility] RBC (Bld) [#/Vol] 4.34 10*6/uL 3.80 - 5.20 10*6/uL [facility] WBC (Bld) [#/Vol] 10.7 10*3/uL 3.6 - 10.7 10*3/uL [facility] CBC WITH AUTO DIFFERENTIALon 05-25-2025 Basophils (Bld) [#/Vol] 0.0 10*3/uL Normal 0.0-0.2 [facility] Comment on above: Performed By: #### Vincent [id number], [id number] ####Sp[employer] Paste Machine Operator: SHAYY MARROQUIN ([phone])[facility])[address] [place] [address] Basophils/100 WBC (Bld) 0.4 % Normal 0.0-2.0 [facility] Comment on above: Performed By: #### Vincent MILLIGAN, [id number] ####Sp[employer] Paste Machine Operator: SHAYY MARROQUIN ([phone])[facility])[address] [place] [address] Eosinophils (Bld) [#/Vol] 0.2 10*3/uL Normal 0.0-0.5 [facility] Comment on above: Performed By: #### Vincent [id number], [id number] ####Spun P[employer] Machine Operator: SHAYY MARROQUIN ([phone])[facility])[address] [place] [address] Eosinophils/100 WBC (Bld) 1.5 % Normal 0.0-6.0 [facility] Comment on above: Performed By: #### Vincent [id number], [id number] ####[employer] P[employer] Machine Operator: SHAYY MARROQUIN ([phone])[address] Erythrocyte distribution width (RBC) [Ratio] 13.0 % Normal 11.5-15.0 [facility] Comment on above: Performed By: #### Vincent [id number], [id number] ####Spun P[employer] Machine Operator: SHAYY MARROQUIN ([phone])[facility])[address] [place] [address] Hematocrit (Bld) [Volume fraction] 40.7 % Normal 35.0-47.0 [facility] Comment on above: Performed By: #### Vincent MILLIGAN, [id number] ####Spun Paste Machine Operator: SHAYY MARROQUIN ([phone])[facility])[address] [place] [address] Hemoglobin (Bld) [Mass/Vol] 13.5 g/dL Normal 11.7-16.0 [facility] Comment on above: Performed By: #### Vincent MILLIGAN, [id number] ####[employer] P[employer] Machine Operator: SHAYY MARROQUIN ([phone])[address] IMMATURE GRANS % 0.4 % Normal 0.0-2.0 [facility] Comment on above: Performed By: #### Vincent MILLIGAN, [id number] ####Spun P[employer] Machine Operator: SHAYY MARROQUIN ([phone])[facility])[address] [place] [address] IMMATURE GRANS ABSOLUTE 0.0 10*3/uL Normal <0.1 [facility] Comment on above: Performed By: #### Vincent MILLIGAN, [id number] ####Spun Paste Machine Operator: SHAYY MARROQUIN ([phone])[facility])[address] [place] [address] Lymphocytes (Bld) [#/Vol] 1.3 10*3/uL Normal 1.0-4.3 [facility] Comment on above: Performed By: #### Vincent MILLIGAN, [id number] ####[employer] P[employer] Machine Operator: SHAYY MARROQUIN ([phone])[address] Lymphocytes/100 WBC (Bld) 12.3 % Low 15.0-45.0 [facility] Comment on above: Performed By: #### Vincent MILLIGAN, [id number] ####Spun Paste Machine Operator: SHAYY MARROQUIN ([phone])[facility] ([facility])[address] [place] [address] MCH (RBC) [Entitic mass] 31.1 pg Normal 26.0-34.0 [facility] Comment on above: Performed By: #### Vincent [id number], [id number] ####Spun P[employer] Machine Operator: SHAYY MARROQUIN ([id number])[facility])[address] [place] [address] MCHC 33.2 % Normal 30.5-36.0 [facility] Comment on above: Performed By: #### L [id number], HVD557 ####Spun P[employer] Machine Operator: SHAYY MARROQUIN ([phone])[facility])[address] [place] [address] MCV (RBC) [Entitic vol] 93.8 fL Normal 77.0-99.0 [facility] Comment on above: Performed By: #### Vincent [id number], NHL999 ####Spun P[employer] Machine Operator: SHAYY MARROQUIN ([id number])[facility])[address] [place] [address] Monocytes (Bld) [#/Vol] 0.8 10*3/uL Normal 0.0-0.9 [facility] Comment on above: Performed By: #### L [id number], [id number] ####Sp[employer] P[employer] Machine Operator: SHAYY MARROQUIN ([phone])[facility])[address] [place] [address] Monocytes/100 WBC (Bld) 7.8 % Normal 5.0-13.0 [facility] Comment on above: Performed By: #### L [id number], [id number] ####[employer] P[employer] Machine Operator: SHAYY MARROQUIN ([phone])[facility])[address] [place] [address] NEUTROPHILS ABSOLUTE 8.3 10*3/uL High 1.8-7.5 [facility] Comment on above: Performed By: #### Vincent JW0265, [id number] ####Sp[employer] P[employer] Machine Operator: SHAYY [id number])[facility] ([facility])[address] [place] [address] Neutrophils/100 WBC (Bld) 77.6 % Normal 38.0-82.0 [facility] Comment on above: Performed By: #### L [id number], [id number] ####[employer] P[employer] Machine Operator: SHAYY MARROQUIN ([phone])[facility] ([facility])[address] [place] [address] NRBC 0.0 /100 WBCs Normal 0.0-2.0 [facility] Comment on above: Performed By: #### L [id number], KTQ806 ####[employer] P[employer] Machine Operator: SHAYY MARROQUIN ([phone])[facility])[address] [place] [address] Platelet mean volume (Bld) [Entitic vol] 9.7 fL Normal 9.0-12.7 [facility] Comment on above: Performed By: #### Vincent MILLIGAN, [id number] ####[employer] P[employer] Machine Operator: SHAYY MARROQUIN ([phone])[facility] ([facility])[address] [place] [address] Platelets (Bld) [#/Vol] 203 10*3/uL Normal 140-440 [facility] Comment on above: Performed By: #### L [id number], ZFW966 ####[employer]un P[employer] Machine Operator: SHAYY MARROQUIN ([phone])[facility])[address] [place] [address] RBC (Bld) [#/Vol] 4.34 10*6/uL Normal 3.80-5.20 [facility] Comment on above: Performed By: #### L [id number], JCP636 ####Spun P[employer] Machine Operator: SHAYY MARROQUIN ([phone])[facility])[address] [place] [address] [place] WBC (Bld) [#/Vol] 10.7 10*3/uL Normal 3.6-10.7 [facility] Comment on above: Performed By: #### L IR6116, YIQ211 ####[employer] P[employer] Machine Operator: SHAYY [id number])[facility] [place] [address] COMPREHENSIVE METABOLIC PANE Frank 05-25-2025 Albumin [Mass/Vol] 3.0 g/dL Low 3.4-4.8 [facility] Comment on above: Performed By: #### L AB149, LAB17 ####[employer] Operator: SHAYY MARROQUIN ([phone])[facility] ([facility])[address] [place] [address] ALP [Catalytic activity/Vol] 161 U/L High 40-150 [facility] Comment on above: Performed By: #### L AB149, LAB17 ####[employer] P[employer] Machine Operator: SHAYY MARROQUIN ([phone])[facility] ([facility])[address] [place] [address] ALT [Catalytic activity/Vol] 13 U/L Normal <30 [facility] Comment on above: Performed By: #### L AB149, LAB17 ####[employer] P[employer] Machine Operator: SHAYY MARROQUIN ([phone])[facility] ([facility])[address] [place] [address] Anion gap [Moles/Vol] 7 mmol/L Normal 3-13 [facility] Comment on above: Performed By: #### L AB149, LAB17 ####[employer] Machine Operator: SHAYY MARROQUIN ([phone])[facility] ([facility])[address] [place] [address] [place] AST [Catalytic activity/Vol] 24 U/L Normal <34 [facility] Comment on above: Performed By: #### L AB149, LAB17 ####[employer] Operator: SHAYY MARROQUIN ([phone])[facility] ([facility])[address] [place] [address] [place] Bilirubin [Mass/Vol] 1.0 mg/dL Normal <1.2 [facility] Comment on above: Performed By: #### L AB149, LAB17 ####[employer] P[employer] Machine Operator: SHAYY MARROQUIN ([id number])[facility] ([facility])[address] [place] [address] [place] Calcium [Mass/Vol] 8.9 mg/dL Normal 8.8-10.0 [facility] Comment on above: Performed By: #### L AB149, LAB17 ####[employer] Operator: SHAYY MARROQUIN ([id number])[facility] ([facility])[address] [place] [address] Chloride [Moles/Vol] 107 mmol/L Normal 98-107 [facility] Comment on above: Performed By: #### L AB149, LAB17 ####[employer] P[employer] Machine Operator: SHAYY MARROQUIN ([phone])[facility])[address] [place] [address] CO2 [Moles/Vol] 24 mmol/L Normal 23-31 [facility] Comment on above: Performed By: #### L AB149, LAB17 ####[employer] P[employer] Machine Operator: SHAYY MARROQUIN ([phone])[facility] ([facility])[address] [place] [address] Creatinine [Mass/Vol] 1.31 mg/dL High 0.57-1.11 [facility] Comment on above: Performed By: #### L AB149, LAB17 ####Spun Paste Machine Operator: SHAYY MARROQUIN ([phone])[facility] ([facility])[address] [place] [address] GLOMERULAR FILTRATION RATE ML/MIN/1.73 SQ M.PREDICTED 40.8 mL/min/1.73m*2 Low >60.0 [facility] Comment on above: Result Comment: Calc ulation based on the Chronic Kidney Disease Epidemiology Collaboration (CKD-EPI) equation refit without adjustment for race Performed By: #### L AB149, LAB17 ####[employer] Machine Operator: SHAYY MARROQUIN ([phone])[facility] ([facility])[address] [place] [address] [place] Glucose [Mass/Vol] 108 mg/dL Normal 82-115 [facility] Comment on above: Performed By: #### L AB149, LAB17 ####[employer] P[employer] Machine Operator: SHAYY MARROQUIN ([phone])[facility] ([facility])[address] [place] [address] [place] Potassium [Moles/Vol] 3.7 mmol/L Normal 3.5-5.1 [facility] Comment on above: Result Comment: [facility] potassium values may be up to 0.5 mmol/L lower than serum values. Performed By: #### L AB149, LAB17 ####[employer] P[employer] Machine Operator: SHAYY MARROQUIN ([phone])[facility])[address] [place] [address] Protein [Mass/Vol] 6.0 g/dL Low 6.4-8.3 [facility] Comment on above: Performed By: #### L AB149, LAB17 ####[employer] Operator: SHAYY MARROQUIN ([phone])[facility])[address] [place] [address] Sodium [Moles/Vol] 138 mmol/L Normal 136-145 [facility] Comment on above: Performed By: #### L AB149, LAB17 ####[employer] Machine Operator: SHAYY MARROQUIN ([phone])[facility] ([facility])[address] [place] [address] Urea nitrogen [Mass/Vol] 14 mg/dL Normal 9-23 [facility] Comment on above: Performed By: #### L AB149, LAB17 ####[employer] Operator: SHAYY MARROQUIN ([phone])[facility])[address] [place] [address] CRP [Mass/Vol]on 05-25-2025 Interpretation and review of laboratory results Abnormal [facility] Comprehensive metabolic 1998 panelon 05-25-2025 Albumin [Mass/Vol] 3 g/dL Low 3.4 - 4.8 g/dL [facility] ALP [Catalytic activity/Vol] 161 U/L High 40 - 150 U/L [facility] ALT [Catalytic activity/Vol] 13 U/L NINF - 30 U/L [facility] Anion gap [Moles/Vol] 7 mmol/L 3 - 13 mmol/L [facility] AST [Catalytic activity/Vol] 24 U/L NINF - 34 U/L [facility] Bilirubin [Mass/Vol] 1 mg/dL NINF - 1.2 mg/dL [facility] Calcium [Mass/Vol] 8.9 mg/dL 8.8 - 10. 0 mg/dL [facility] Chloride [Moles/Vol] 107 mmol/L 98 - 10 7 mmol/L [facility] CO2 [Moles/Vol] 24 mmol/L 23 - 31 mmol/L [facility] Creatinine [Mass/Vol] 1.31 mg/dL High 0.57 - 1.11 mg/dL [facility] GFR/1.73 sq M.predicted (S/P/Bld) [Vol rate/Area] 40.8 mL/min Low - PINF [facility] Glucose [Mass/Vol] 108 mg/dL 82 - 115 mg/dL [facility] Interpretation and review of laboratory results Abnormal [facility] Potassium [Moles/Vol] 3.7 mmol/L 3.5 - 5.1 mmol/L [facility] Protein [Mass/Vol] 6 g/dL Low 6.4 - 8.3 g/dL [facility] Sodium [Moles/Vol] 138 mmol/L 136 - 145 mmol/L [facility] Urea nitrogen [Mass/Vol] 14 mg/dL 9 - 23 mg/dL [facility] ESR (Bld) [Velocity]Ordered By: Dillan Hahn on 05-25-2025 Interpretation and review of laboratory results Normal [facility] Laboratory - Chemistry and C hemistry - challengeon 05-25-2025 CRP [Mass/Vol] 16.9 mg/L High NINF - 5.0 mg/L [facility] - Hematology and Cell countsOrdered By: Dillan Hahn on 05-25-2025 ESR (Bld) [Velocity] 17 mm/h [facility] Nursing Noteon 05-25-2025 Nursing Note Normal [facility] Progress Noteon 05-25-2025 Progress Note Normal [facility] SEDIMENTATION RATE, AUTOMATE Don 05-25-2025 SEDIMENTATION RATE, ERYTHROCYTE 17 mm/hr Normal 0-20 [facility] Comment on above: Performed By: #### L [id number], [id number] ####[employer] Operator: SHAYY MARROQUIN ([id number])[facility] ([address] [place] Carotid arteries - bilate ralon 05-25-2025 Left CCA dist EDV 12.9 cm/s [facility] Left CCA dist PSV 51 cm/s [facility] Left CCA mid EDV 10.6 cm/s [facility] Left CCA mid PSV 46.7 cm/s [facility] Left CCA prox EDV 15.3 cm/s [facility] Left CCA prox PSV 61.4 cm/s [facility] Left ECA EDV 17 cm/s [facility] Left ECA PSV 89.3 cm/s [facility] Left ICA dist EDV 4.7 cm/s [facility] Left ICA dist PSV 69 cm/s [facility] Left ICA mid EDV 11.5 cm/s [facility] Left ICA mid PSV 56.8 cm/s [facility] Left ICA prox EDV 33.2 cm/s [facility] Left ICA prox PSV 141.7 cm/s [facility] Left ICA/CCA PSV 3.03 [facility] Left subclavian mid EDV 2.6 cm/s [facility] Left subclavian mid PSV 76.4 cm/s [facility] Left vertebral EDV 7.9 cm/s [facility] Left vertebral PSV 42.9 cm/s [facility] Right CCA dist EDV 11.2 cm/s [facility] Right cca dist PSV 43.2 cm/s [facility] Right CCA mid EDV 9.3 cm/s [facility] Right CCA mid PSV 47 cm/s [facility] Right CCA prox EDV 11 cm/s [facility] Right CCA prox PSV 57.4 cm/s [facility] Right ECA EDV 21.4 cm/s [facility] Right ECA PSV 144.9 cm/s [facility] Right ICA dist EDV 8.6 cm/s [facility] Right ICA dist PSV 39.7 cm/s [facility] Right ICA mid EDV 10.3 cm/s [facility] Right ICA mid PSV 45.7 cm/s [facility] Right ICA prox EDV 18.5 cm/s [facility] Right ICA prox PSV 90.8 cm/s [facility] Right ICA/CCA PSV 1.93 [facility] Right subclavian mid EDV 5.3 cm/s [facility] Right subclavian mid PSV 103.2 cm/s [facility] Right vertebral EDV 16.4 cm/s [facility] Right vertebral PSV 44.9 cm/s [facility] CV CPACS CBC (HEMOGRAM)on 05-24-2025 Erythrocyte distribution width (RBC) [Ratio] 13.0 % Normal 11.5-15.0 [facility] Comment on above: Performed By: #### L [id number] ####[employer] Paste Machine Operator: SHAYY MARROQUIN ([phone])[facility])[address] [place] [address] Hematocrit (Bld) [Volume fraction] 43.1 % Normal 35.0-47.0 [facility] Comment on above: Performed By: #### L [id number] ####[employer] P[employer] Machine Operator: SHAYY MARROQUIN ([phone])[facility])[address] [place] [address] Hemoglobin (Bld) [Mass/Vol] 14.7 g/dL Normal 11.7-16.0 [facility] Comment on above: Performed By: #### L [id number] ####[employer] P[employer] Machine Operator: SHAYY MARROQUIN ([phone])[facility] ([facility])[address] [place] [address] MCH (RBC) [Entitic mass] 31.0 pg Normal 26.0-34.0 [facility] Comment on above: Performed By: #### L [id number] ####[employer] P[employer] Machine Operator: SHAYY MARROQUIN ([phone])[facility])[address] [place] [address] MCHC 34.1 % Normal 30.5-36.0 [facility] Comment on above: Performed By: #### L [id number] ####[employer] P[employer] Machine Operator: SHAYY MARROQUIN ([phone])[facility])[address] [place] [address] MCV (RBC) [Entitic vol] 90.9 fL Normal 77.0-99.0 [facility] Comment on above: Performed By: #### L [id number] ####[employer] P[employer] Machine Operator: SHAYY MARROQUIN ([phone])[facility])[address] [place] [address] Platelet mean volume (Bld) [Entitic vol] 9.5 fL Normal 9.0-12.7 [facility] Comment on above: Performed By: #### L [id number] ####[employer] P[employer] Machine Operator: SHAYY MARROQUIN ([id number])[facility] ([facility])[address] [place] [address] Platelets (Bld) [#/Vol] 214 10*3/uL Normal 140-440 [facility] Comment on above: Performed By: #### L [id number] ####[employer] P[employer] Machine Operator: SHAYY MARROQUIN ([phone])[facility] ([facility])[address] [place] [address] RBC (Bld) [#/Vol] 4.74 10*6/uL Normal 3.80-5.20 [facility] Comment on above: Performed By: #### L [id number] ####[employer] P[employer] Machine Operator: SHAYY MARROQUIN ([phone])[facility] ([facility])[address] [place] [address] WBC (Bld) [#/Vol] 14.2 10*3/uL High 3.6-10.7 [facility] Comment on above: Performed By: #### L [id number] ####[employer] P[employer] Machine Operator: SHAYY MARROQUIN ([phone])[facility] ([facility])[address] [place] [address] CBC panel Auto (Bld)on 05-24 Erythrocyte distribution width (RBC) [Ratio] 13 % 11.5 - 15.0 % [facility] Hematocrit (Bld) [Volume fraction] 43.1 % 35.0 - 47.0 % [facility] Hemoglobin (Bld) [Mass/Vol] 14.7 g/dL 11.7 - 16.0 g/dL [facility] Interpretation and review of laboratory results Abnormal [facility] MCH (RBC) [Entitic mass] 31 pg 26.0 - 34.0 pg [facility] MCHC (RBC) [Mass/Vol] 34.1 % 30.5 - 36.0 % [facility] MCV (RBC) [Entitic vol] 90.9 fL 77.0 - 99.0 fL [facility] Platelet mean volume (Bld) [Entitic vol] 9.5 fL 9.0 - 12.7 fL [facility] Platelets (Bld) [#/Vol] 214 10*3/uL 140 - 440 10*3/uL [facility] RBC (Bld) [#/Vol] 4.74 10*6/uL 3.80 - 5.20 10*6/uL [facility] WBC (Bld) [#/Vol] 14.2 10*3/uL High 3.6 - 10.7 10*3/uL [facility] COMPREHENSIVE METABOLIC PANE Frank 05-24-2025 Albumin [Mass/Vol] 3.2 g/dL Low 3.4-4.8 [facility] Comment on above: Performed By: #### L AB17, LAB67, LAB18, [id number] ####[employer] P[employer] Machine Operator: SHAYY MARROQUIN ([phone])[facility] ([facility])[address] [place] [address] ALP [Catalytic activity/Vol] 180 U/L High 40-150 [facility] Comment on above: Performed By: #### L AB17, LAB67, LAB18, [id number] ####[employer] P[employer] Machine Operator: SHAYY MARROQUIN ([phone])[facility] ([facility])[address] [place] [address] ALT [Catalytic activity/Vol] 13 U/L Normal <30 [facility] Comment on above: Performed By: #### L AB17, LAB67, LAB18, [id number] ####[employer] P[employer] Machine Operator: SHAYY MARROQUIN ([phone])[facility] ([facility])[address] [place] [address] Anion gap [Moles/Vol] 9 mmol/L Normal 3-13 [facility] Comment on above: Performed By: #### L AB17, LAB67, LAB18, [id number] ####Spun P[employer] Machine Operator: SHAYY MARROQUIN ([phone])[facility] ([facility])[address] [place] [address] AST [Catalytic activity/Vol] 21 U/L Normal <34 [facility] Comment on above: Performed By: #### L AB17, LAB67, LAB18, [id number] ####[employer] P[employer] Machine Operator: SHAYY MARROQUIN ([phone])[facility] ([facility])[address] [place] [address] Bilirubin [Mass/Vol] 1.2 mg/dL High <1.2 [facility] Comment on above: Performed By: #### L AB17, LAB67, LAB18, [id number] ####Spun P[employer] Machine Operator: SHAYY MARROQUIN ([phone])[facility])[address] [place] [address] Calcium [Mass/Vol] 9.0 mg/dL Normal 8.8-10.0 [facility] Comment on above: Performed By: #### L AB17, LAB67, LAB18, [id number] ####[employer] P[employer] Machine Operator: SHAYY MARROQUIN ([phone])[facility] ([facility])[address] [place] [address] Chloride [Moles/Vol] 107 mmol/L Normal 98-107 [facility] Comment on above: Performed By: #### L AB17, LAB67, LAB18, [id number] ####Spun Paste Machine Operator: SHAYY MARROQUIN ([phone])[facility] ([facility])[address] [place] [address] CO2 [Moles/Vol] 22 mmol/L Low 23-31 [facility] Comment on above: Performed By: #### L AB17, LAB67, LAB18, [id number] ####Sp[employer] P[employer] Machine Operator: SHAYY MARROQUIN ([phone])[facility])[address] [place] [address] Creatinine [Mass/Vol] 1.18 mg/dL High 0.57-1.11 [facility] Comment on above: Performed By: #### L AB17, LAB67, LAB18, [id number] ####Spun Paste Machine Operator: SHAYY MARROQUIN ([phone])[facility])[address] [place] [address] GLOMERULAR FILTRATION RATE ML/MIN/1.73 SQ M.PREDICTED 46.2 mL/min/1.73m*2 Low >60.0 [facility] Comment on above: Result Comment: Calc ulation based on the Chronic Kidney Disease Epidemiology Collaboration (CKD-EPI) equation refit without adjustment for race Performed By: #### L AB17, LAB67, LAB18, [id number] ####Sp[employer] Paste Machine Operator: SHAYY MARROQUIN ([phone])[facility])[address] [place] [address] Glucose [Mass/Vol] 135 mg/dL High 82-115 [facility] Comment on above: Performed By: #### L AB17, LAB67, LAB18, [id number] ####[employer] Paste Machine Operator: SHAYY MARROQUIN ([phone])[facility])[address] [place] [address] Potassium [Moles/Vol] 3.5 mmol/L Normal 3.5-5.1 [facility] Comment on above: Result Comment: [facility] potassium values may be up to 0.5 mmol/L lower than serum values. Performed By: #### L AB17, LAB67, LAB18, [id number] ####Sp[employer] P[employer] Machine Operator: SHAYY MARROQUIN ([phone])[facility])[address] [place] [address] Protein [Mass/Vol] 6.3 g/dL Low 6.4-8.3 [facility] Comment on above: Performed By: #### L AB17, LAB67, LAB18, [id number] ####Sp[employer] P[employer] Machine Operator: SHAYY MARROQUIN ([phone])[facility])[address] [place] [address] [place] Sodium [Moles/Vol] 138 mmol/L Normal 136-145 [facility] Comment on above: Performed By: #### L AB17, LAB67, LAB18, [id number] ####Spun Paste Machine Operator: SHAYY MARROQUIN ([phone])[facility])[address] [place] [address] [place] Urea nitrogen [Mass/Vol] 14 mg/dL Normal 9-23 [facility] Comment on above: Performed By: #### L AB17, LAB67, LAB18, [id number] ####Spun Paste Machine Operator: SHAYY MARROQUIN ([phone])[facility] ([facility])[address] [place] [address] Cobalamin (Vitamin B12) [Mas s/Vol]on 05-24-2025 Interpretation and review of laboratory results Normal [facility] Comprehensive metabolic 1998 panelon 05-24-2025 Albumin [Mass/Vol] 3.2 g/dL Low 3.4 - 4.8 g/dL [facility] ALP [Catalytic activity/Vol] 180 U/L High 40 - 150 U/L [facility] ALT [Catalytic activity/Vol] 13 U/L NINF - 30 U/L [facility] Anion gap [Moles/Vol] 9 mmol/L 3 - 13 mmol/L [facility] AST [Catalytic activity/Vol] 21 U/L NINF - 34 U/L [facility] Bilirubin [Mass/Vol] 1.2 mg/dL High NINF - 1.2 mg/dL [facility] Calcium [Mass/Vol] 9 mg/dL 8.8 - 10. 0 mg/dL [facility] Chloride [Moles/Vol] 107 mmol/L 98 - 10 7 mmol/L [facility] CO2 [Moles/Vol] 22 mmol/L Low 23 - 31 mmol/L [facility] Creatinine [Mass/Vol] 1.18 mg/dL High 0.57 - 1.11 mg/dL [facility] GFR/1.73 sq M.predicted (S/P/Bld) [Vol rate/Area] 46.2 mL/min Low - PINF [facility] Glucose [Mass/Vol] 135 mg/dL High 82 - 115 mg/dL [facility] Interpretation and review of laboratory results Abnormal [facility] Potassium [Moles/Vol] 3.5 mmol/L 3.5 - 5.1 mmol/L [facility] Protein [Mass/Vol] 6.3 g/dL Low 6.4 - 8.3 g/dL [facility] Sodium [Moles/Vol] 138 mmol/L 136 - 145 mmol/L [facility] Urea nitrogen [Mass/Vol] 14 mg/dL 9 - 23 mg/dL [facility] Consulton 05-24-2025 Consult Normal [facility] Consult Normal [facility] Consult Normal [facility] Consult Normal [facility] ECG 12-LEADon 05-24-2025 ECG 12-LEAD IMPRESSION: Sinus rhythm Low voltage, precordial leads Prolonged QT interval Compared to ECG 04/18/25 No significant change Electronically Signed On 05-24-2025 06:18:05 EDT by Stanislaw Carlisle Normal [facility] ED Nursing Noteon 05-24-2025 ED Nursing Note Report given to Erin JONES. Normal [facility] LIPID PANELon 05-24-2025 Cholesterol [Mass/Vol] 106 mg/dL Normal <200 [facility] Comment on above: Performed By: #### L AB17, LAB67, LAB18, [id number] ####[employer] P[employer] Machine Operator: SHAYY MARROQUIN ([phone])[facility] ([facility])[address] [place] [address] Cholesterol in HDL [Mass/Vol] 46 mg/dL Low >=60 [facility] Comment on above: Performed By: #### L AB17, LAB67, LAB18, [id number] ####Spun Paste Machine Operator: SHAYY MARROQUIN ([phone])[facility] ([facility])[address] [place] [address] Cholesterol.total/Chol esterol in HDL [Mass ratio] 2 {ratio} Normal [facility] Comment on above: Result Comment: Ref Range:< 3 Low Risk for CHD3-6 Mod Risk for CHD> 6 High Risk for CHD Performed By: #### L AB17, LAB67, LAB18, [id number] ####Spun Paste Machine Operator: SHAYY MARROQUIN ([phone])[facility] ([facility])[address] [place] [address] LOW DENSITY LIPOPROTEIN 51 mg/dL Normal 0-<100 [facility] Comment on above: Performed By: #### L AB17, LAB67, LAB18, [id number] ####Spun Paste Machine Operator: SHAYY MARROQUIN ([phone])[facility])[address] [place] [address] NON-HDL CHOLESTEROL, CALCULATED 60 Normal <130 [facility] Comment on above: Performed By: #### L AB17, LAB67, LAB18, [id number] ####Spun Paste Machine Operator: SHAYY MARROQUIN ([phone])[facility] ([facility])[address] Triglyceride [Mass/Vol] 45 mg/dL Normal <150 [facility] Comment on above: Performed By: #### L AB17, LAB67, LAB18, [id number] ####Spun Paste Machine Operator: SHAYY MARROQUIN ([phone])[facility] ([facility])[address] [place] [address] VERY LOW DENSITY LIPOPROTEIN, CALCULATED 9 mg/dL Normal <=30 [facility] Comment on above: Performed By: #### L AB17, LAB67, LAB18, [id number] ####Spun Paste Machine Operator: SHAYY MARROQUIN ([phone])[facility] ([facility])[address] [place] [address] Laboratory - Chemistry and C hemistry - challengeon 05-24-2025 Cobalamin (Vitamin B12) [Mass/Vol] 320 pg/mL 213 - 816 pg/mL [facility] Magnesium [Mass/Vol] 2 mg/dL 1.6 - 2 .6 mg/dL [facility] Lipid 1996 panelon Cholesterol [Mass/Vol] 106 mg/dL NINF - 200 mg/dL [facility] Cholesterol in HDL [Mass/Vol] 46 mg/dL Low 60 - PINF mg/dL [facility] Cholesterol in LDL [Mass/Vol] 51 mg/dL 0 - <100 [facility] Cholesterol.total/Chol esterol in HDL [Mass ratio] 2 {ratio} [facility] Interpretation and review of laboratory results Abnormal [facility] NON-HDL CHOLESTEROL, CALCULATED 60 NINF - 130 [facility] Triglyceride [Mass/Vol] 45 mg/dL NINF - 150 mg/dL [facility] VERY LOW DENSITY LIPOPROTEIN, CALCULATED 9 mg/dL [facility]/dL [facility] MAGNESIUMon 05-24-2025 Magnesium [Mass/Vol] 2.0 mg/dL Normal 1.6-2.6 [facility] Comment on above: Result Comment: ESPERANZA Abarca COMMENTS:Higher values can be expected in females during menses. Performed By: #### L AB17, LAB67, LAB18, [id number] ####Spun Paste Machine Operator: SHAYY MARROQUIN ([phone])[facility] ([facility])[address] [place] [address] MR Brain WO and W contrast I Von 05-24-2025 [facility] Radiology Study observation (narrative) [facility] MR Brain WO and W contrast I VOrdered By: Iain Camacho on 05-24-2025 [employer] Work Phone: Magnesium [Mass/Vol]on 05-24 Interpretation and review of laboratory results Normal [facility] [employer] No Panel InformationOrdered By: Stanislaw Carlisle on 05-24-2025 Heart Rate 69 bpm [employer] Work Phone: P [place] 46 degrees [employer] Work Phone: TX Interval 191 ms [employer] Work Phone: QRS [place] 43 degrees [employer] Phone: QRSD Interval 88 ms [employer] Work Phone: QT Interval 501 ms [employer] Work Phone: QTC Interval 537 ms [employer] Work Phone: T Wave [place] 65 degrees [employer] Work Phone: [employer] Work Phone: No Panel Informationon 05-24 CV EPIPHANY [facility] [employer] Progress Noteon 05-24-2025 Progress Note Normal [facility] Progress Note Normal [facility] Progress Note Normal [facility] VITAMIN B12on 05-24-2025 Cobalamin (Vitamin B12) [Mass/Vol] 320 pg/mL Normal 213-816 [facility] Comment on above: Performed By: #### L AB17, LAB67, LAB18, [id number] ####[employer] P[employer] Machine Operator: SHAYY MARROQUIN ([phone])[facility] ([facility])[address] [place] [address] C-REACTIVE PROTEINon 025 CRP [Mass/Vol] 9.6 mg/L High <5.0 [facility] Comment on above: Performed By: #### L [id number] ####Sp[employer] Paste Machine Operator: SHAYY MARROQUIN ([phone])[facility] ([facility])[address] [place] [address] CBC W Auto Differential pane l (Bld)on 05-23-2025 Basophils (Bld) [#/Vol] 0 10*3/uL 0.0 - 0.2 10*3/uL [facility] Basophils/100 WBC (Bld) 0.4 % 0.0 - 2.0 % [facility] Eosinophils (Bld) [#/Vol] 0.3 10*3/uL 0.0 - 0.5 10*3/uL [facility] Eosinophils/100 WBC (Bld) 2.8 % 0.0 - 6.0 % [facility] Erythrocyte distribution width (RBC) [Ratio] 13 % 11.5 - 15.0 % [facility] Hematocrit (Bld) [Volume fraction] 47.4 % High 35.0 - 47.0 % [facility] Hemoglobin (Bld) [Mass/Vol] 15.7 g/dL 11.7 - 16.0 g/dL [facility] Immature granulocytes (Bld) [#/Vol] 0 10*3/uL NINF - 0.1 10*3/uL [facility] Immature granulocytes/100 WBC (Bld) 0.2 % 0.0 - 2.0 % [facility] Interpretation and review of laboratory results Abnormal [facility] Lymphocytes (Bld) [#/Vol] 2 10*3/uL 1.0 - 4.3 10*3/uL [facility] Lymphocytes/100 WBC (Bld) 20.1 % 15.0 - 45.0 % [facility] MCH (RBC) [Entitic mass] 31 pg 26.0 - 34.0 pg [facility] MCHC (RBC) [Mass/Vol] 33.1 % 30.5 - 36.0 % [facility] MCV (RBC) [Entitic vol] 93.5 fL 77.0 - 99.0 fL [facility] Monocytes (Bld) [#/Vol] 0.7 10*3/uL 0.0 - 0.9 10*3/uL [facility] Monocytes/100 WBC (Bld) 7.2 % 5.0 - 13.0 % [facility] Neutrophils (Bld) [#/Vol] 6.8 10*3/uL 1.8 - 7.5 10*3/uL [facility] Neutrophils/100 WBC (Bld) 69.3 % 38.0 - 82.0 % [facility] Nucleated RBC/100 WBC (Bld) [Ratio] 0 % [facility] Platelet mean volume (Bld) [Entitic vol] 9.5 fL 9.0 - 12.7 fL [facility] Platelets (Bld) [#/Vol] 244 10*3/uL 140 - 440 10*3/uL [facility] RBC (Bld) [#/Vol] 5.07 10*6/uL 3.80 - 5.20 10*6/uL [facility] WBC (Bld) [#/Vol] 9.8 10*3/uL 3.6 - 10.7 10*3/uL [facility] CBC WITH AUTO DIFFERENTIALon 05-23-2025 Basophils (Bld) [#/Vol] 0.0 10*3/uL Normal 0.0-0.2 [facility] Comment on above: Performed By: #### L [id number] ####[employer] P[employer] Operator: SHAYY MARROQUIN ([phone])[facility])[address] [place] [address] Basophils/100 WBC (Bld) 0.4 % Normal 0.0-2.0 [facility] Comment on above: Performed By: #### L [id number] ####[employer] P[employer] Machine Operator: SHAYY MARROQUIN ([phone])[facility])[address] [place] [address] [place] Eosinophils (Bld) [#/Vol] 0.3 10*3/uL Normal 0.0-0.5 [facility] Comment on above: Performed By: #### L [id number] ####[employer] Operator: SHAYY MARROQUIN ([phone])[facility])[address] [place] [address] [place] Eosinophils/100 WBC (Bld) 2.8 % Normal 0.0-6.0 [facility] Comment on above: Performed By: #### L [id number] ####[employer] Machine Operator: SHAYY [id number])[facility] ([address] Erythrocyte distribution width (RBC) [Ratio] 13.0 % Normal 11.5-15.0 [facility] Comment on above: Performed By: #### L [id number] ####[employer] P[employer] Machine Operator: SHAYY MARROQUIN ([phone])[facility])[address] [place] [address] Hematocrit (Bld) [Volume fraction] 47.4 % High 35.0-47.0 [facility] Comment on above: Performed By: #### L [id number] ####[employer] Machine Operator: SHAYY MARROQUIN ([phone])[address] Hemoglobin (Bld) [Mass/Vol] 15.7 g/dL Normal 11.7-16.0 [facility] Comment on above: Performed By: #### L [id number] ####[employer] Operator: SHAYY MARROQUIN ([phone])[facility])[address] [place] [address] IMMATURE GRANS % 0.2 % Normal 0.0-2.0 [facility] Comment on above: Performed By: #### L [id number] ####[employer] Operator: SHAYY MARROQUIN ([phone])[facility])[address] [place] [address] IMMATURE GRANS ABSOLUTE 0.0 10*3/uL Normal <0.1 [facility] Comment on above: Performed By: #### L [id number] ####[employer] Operator: SHAYY MARROQUIN ([phone])[facility])[address] [place] [address] Lymphocytes (Bld) [#/Vol] 2.0 10*3/uL Normal 1.0-4.3 [facility] Comment on above: Performed By: #### L [id number] ####[employer] Operator: SHAYY MARROQUIN ([phone])[facility])[address] [place] [address] Lymphocytes/100 WBC (Bld) 20.1 % Normal 15.0-45.0 [facility] Comment on above: Performed By: #### L [id number] ####[employer] Operator: SHAYY MARROQUIN ([phone])[facility])[address] [place] [address] MCH (RBC) [Entitic mass] 31.0 pg Normal 26.0-34.0 [facility] Comment on above: Performed By: #### L [id number] ####[employer] Operator: SHAYY MARROQUIN ([phone])[facility])[address] [place] [address] MCHC 33.1 % Normal 30.5-36.0 [facility] Comment on above: Performed By: #### L [id number] ####[employer] Operator: SHAYY MARROQUIN ([phone])[facility])[address] [place] [address] MCV (RBC) [Entitic vol] 93.5 fL Normal 77.0-99.0 [facility] Comment on above: Performed By: #### L [id number] ####[employer] Operator: SHAYY MARROQUIN ([id number])[facility])[address] [place] [address] Monocytes (Bld) [#/Vol] 0.7 10*3/uL Normal 0.0-0.9 [facility] Comment on above: Performed By: #### L [id number] ####[employer] Operator: SHAYY MARROQUIN ([phone])[facility])[address] [place] [address] Monocytes/100 WBC (Bld) 7.2 % Normal 5.0-13.0 [facility] Comment on above: Performed By: #### L [id number] ####[employer] Operator: SHAYY MARROQUIN ([phone])[facility])[address] [place] [address] NEUTROPHILS ABSOLUTE 6.8 10*3/uL Normal 1.8-7.5 [facility] Comment on above: Performed By: #### L [id number] ####[employer] Operator: SHAYY MARROQUIN ([phone])[facility] ([facility])[address] [place] [address] Neutrophils/100 WBC (Bld) 69.3 % Normal 38.0-82.0 [facility] Comment on above: Performed By: #### L [id number] ####[employer] Operator: SHAYY MARROQUIN ([id number])[facility] ([facility])[address] [place] [address] NRBC 0.0 /100 WBCs Normal 0.0-2.0 [facility] Comment on above: Performed By: #### L [id number] ####[employer] Operator: SHAYY MARROQUIN ([phone])[facility])[address] [place] [address] Platelet mean volume (Bld) [Entitic vol] 9.5 fL Normal 9.0-12.7 [facility] Comment on above: Performed By: #### L [id number] ####[employer] Operator: SHAYY MARROQUIN ([id number])[facility] ([facility])[address] [place] [address] Platelets (Bld) [#/Vol] 244 10*3/uL Normal 140-440 [facility] Comment on above: Performed By: #### L [id number] ####[employer] Operator: SHAYY MARROQUIN ([phone])[facility] ([facility])[address] [place] [address] RBC (Bld) [#/Vol] 5.07 10*6/uL Normal 3.80-5.20 [facility] Comment on above: Performed By: #### L [id number] ####[employer] Operator: SHAYY MARROQUIN ([phone])[facility] ([facility])[address] [place] [address] [place] WBC (Bld) [#/Vol] 9.8 10*3/uL Normal 3.6-10.7 [facility] Comment on above: Performed By: #### L [id number] ####Spun Paste Machine Operator: SHAYY MARROQUIN ([phone])[facility] ([address] Basophils (Bld) [#/Vol] 0.0 10*3/uL Normal 0.0-0.2 [facility] Comment on above: Performed By: #### L [id number], [id number] ####Spun Paste Machine Operator: SHAYY MARROQUIN ([phone])[facility])[address] [place] [address] Basophils/100 WBC (Bld) 0.2 % Normal 0.0-2.0 [facility] Comment on above: Performed By: #### L [id number], [id number] ####[employer] P[employer] Machine Operator: SHAYY MARROQUIN ([phone])[address] Eosinophils (Bld) [#/Vol] 0.2 10*3/uL Normal 0.0-0.5 [facility] Comment on above: Performed By: #### Vincent [id number], [id number] ####[employer]un P[employer] Machine Operator: SHAYY MARROQUIN ([phone])[facility])[address] [place] [address] Eosinophils/100 WBC (Bld) 2.2 % Normal 0.0-6.0 [facility] Comment on above: Performed By: #### L [id number], [id number] ####[employer] P[employer] Machine Operator: SHAYY MARROQUIN ([phone])[address] Erythrocyte distribution width (RBC) [Ratio] 12.9 % Normal 11.5-15.0 [facility] [facility] Comment on above: Performed By: #### L [id number], [id number] ####[employer] Paste Machine Operator: SHAYY MARROQUIN ([phone])[address] Hematocrit (Bld) [Volume fraction] 45.2 % Normal 35.0-47.0 [facility] Comment on above: Performed By: #### L [id number], [id number] ####Sp[employer] Paste Machine Operator: SHAYY [id number])[facility] ([facility])[address] [place] [address] Hemoglobin (Bld) [Mass/Vol] 14.9 g/dL Normal 11.7-16.0 [facility] Comment on above: Performed By: #### Vincent AB322, [id number] ####Spun Paste Machine Operator: SHAYY MARROQUIN ([phone])[facility])[address] [place] [address] IMMATURE GRANS % 0.2 % Normal 0.0-2.0 [facility] Comment on above: Performed By: #### Vincent AB322, [id number] ####[employer] P[employer] Machine Operator: SHAYY MARROQUIN ([phone])[address] IMMATURE GRANS ABSOLUTE 0.0 10*3/uL Normal <0.1 [facility] Comment on above: Performed By: #### Vincent AB322, [id number] ####Sp[employer] Paste Machine Operator: SHAYY MARROQUIN ([phone])[facility])[address] [place] [address] Lymphocytes (Bld) [#/Vol] 1.4 10*3/uL Normal 1.0-4.3 [facility] Comment on above: Performed By: #### Vincent AB322, [id number] ####[employer] P[employer] Machine Operator: SHAYY MARROQUIN ([phone])[address] Lymphocytes/100 WBC (Bld) 17.0 % Normal 15.0-45.0 [facility] Comment on above: Performed By: #### Vincent AB322, [id number] ####[employer] P[employer] Machine Operator: SHAYY MARROQUIN ([phone])[address] MCH (RBC) [Entitic mass] 30.8 pg Normal 26.0-34.0 [facility] Comment on above: Performed By: #### Vincent AB322, [id number] ####[employer] P[employer] Machine Operator: SHAYY [id number])[address] [place] [address] [place] MCHC 33.0 % Normal 30.5-36.0 [facility] Comment on above: Performed By: #### L [id number], [id number] ####Spun Paste Machine Operator: SHAYY MARROQUIN ([phone])[facility] ([facility])[address] [place] [address] MCV (RBC) [Entitic vol] 93.4 fL Normal 77.0-99.0 [facility] Comment on above: Performed By: #### L [id number], [id number] ####Spun P[employer] Machine Operator: SHAYY MARROQUIN ([phone])[facility])[address] [place] [address] Monocytes (Bld) [#/Vol] 0.5 10*3/uL Normal 0.0-0.9 [facility] Comment on above: Performed By: #### Vincent AB322, [id number] ####Sp[employer] Paste Machine Operator: SHAYY MARROQUIN ([phone])[facility] ([facility])[address] [place] [address] Monocytes/100 WBC (Bld) 5.5 % Normal 5.0-13.0 [facility] Comment on above: Performed By: #### L AB322, [id number] ####Spun Paste Machine Operator: SHAYY MARROQUIN ([phone])[facility])[address] [place] [address] NEUTROPHILS ABSOLUTE 6.1 10*3/uL Normal 1.8-7.5 [facility] Comment on above: Performed By: #### L [id number], [id number] ####Spun Paste Machine Operator: SHAYY MARROQUIN ([phone])[facility])[address] [place] [address] Neutrophils/100 WBC (Bld) 74.9 % Normal 38.0-82.0 [facility] Comment on above: Performed By: #### L AB322, [id number] ####Spun Paste Machine Operator: SHAYY MARROQUIN ([phone])[facility])[address] [place] [address] NRBC 0.0 /100 WBCs Normal 0.0-2.0 [facility] Comment on above: Performed By: #### L AB322, [id number] ####Spun Paste Machine Operator: SHAYY MARROQUIN ([phone])[facility] ([facility])[address] [place] [address] Platelet mean volume (Bld) [Entitic vol] 9.6 fL Normal 9.0-12.7 [facility] Comment on above: Performed By: #### L [id number], [id number] ####Spun Paste Machine Operator: SHAYY MARROQUIN ([phone])[facility] ([facility])[address] [place] [address] Platelets (Bld) [#/Vol] 206 10*3/uL Normal 140-440 [facility] Comment on above: Performed By: #### Vincent AB322, [id number] ####Spun P[employer] Machine Operator: SHAYY MARROQUIN ([phone])[facility] ([facility])[address] [place] [address] RBC (Bld) [#/Vol] 4.84 10*6/uL Normal 3.80-5.20 [facility] Comment on above: Performed By: #### Vincent AB322, [id number] ####Spun P[employer] Machine Operator: SHAYY MARROQUIN ([phone])[facility])[address] [place] [address] WBC (Bld) [#/Vol] 8.1 10*3/uL Normal 3.6-10.7 [facility] Comment on above: Performed By: #### L [id number], [id number] ####Spun Paste Machine Operator: SHAYY MARROQUIN ([phone])[facility])[address] [place] [address] COMPLETE URINALYSIS WITH REF SHAWN TO CULTURE 05-23-2025 BILIRUBIN, TOTAL PRESENCE IN URINE Negative Normal Negative [facility] Comment on above: Performed By: #### L [id number] ####Spun Paste Machine Operator: SHAYY MARROQUIN ([phone])[facility] ([facility])[address] [place] [address] Clarity (U) Clear Normal Clear [facility] Comment on above: Performed By: #### L [id number] ####Spun Paste Machine Operator: SHAYY MARROQUIN ([phone])[facility])[address] [place] [address] Color (U) Colorless Normal Lt. Yellow [facility] Comment on above: Performed By: #### L [id number] ####Spun Paste Machine Operator: SHAYY MARROQUIN ([phone])[facility] ([facility])[address] [place] [address] GLUCOSE (MG/DL) IN URINE Normal Normal Normal (<70) [facility] Comment on above: Performed By: #### L [id number] ####Spun Paste Machine Operator: SHAYY MARROQUIN ([id number])[facility] ([facility])[address] [place] [address] HEMOGLOBIN PRESENCE IN URINE Negative Normal Negative [facility] Comment on above: Performed By: #### L [id number] ####Spun Paste Machine Operator: SHAYY MARROQUIN ([phone])[facility] ([facility])[address] [place] [address] Ketones Ql (U) Negative Normal Negative [facility] Comment on above: Performed By: #### L [id number] ####Spun Paste Machine Operator: SHAYY MARROQUIN ([phone])[facility] ([facility])[address] [place] [address] LEUKOCYTE ESTERASE PRESENCE IN URINE BY TEST STRIP Negative Normal Negative [facility] Comment on above: Performed By: #### L [id number] ####Spun Paste Machine Operator: SHAYY MARROQUIN ([phone])[facility] ([facility])[address] [place] [address] NITRITE PRESENCE IN URINE Negative Normal Negative [facility] Comment on above: Performed By: #### L [id number] ####Spun Paste Machine Operator: SHAYY MARROQUIN ([phone])[facility] ([facility])[address] [place] [address] pH (U) 7.5 [pH] Normal 5.0-8.0 [facility] Comment on above: Performed By: #### L [id number] ####Spun Paste Machine Operator: SHAYY MARROQUIN ([phone])[address] Protein (U) [Mass/Vol] Negative Normal Negative [facility] Comment on above: Performed By: #### L [id number] ####Spun Paste Machine Operator: SHAYY MARROQUIN ([phone])[facility])[address] [place] [address] Specific gravity (U) [Rel density] 1.016 Normal 1.005-1.03 0 [facility] Comment on above: Result Comment: ESPERANZA R COMMENTS:A specimen with <=10 WBC is not consistent with inflammation. This specimen will not reflex to a urine culture. Performed By: #### L [id number] ####Spun Paste Machine Operator: SHAYY MARROQUIN ([phone])[facility])[address] [place] [address] UROBILINOGEN (MG/DL) IN URINE Normal Normal Normal (0-1) [facility] Comment on above: Performed By: #### L [id number] ####Sp[employer] Paste Machine Operator: SHAYY MARROQUIN ([phone])[address] COMPREHENSIVE METABOLIC PANE Frank 05-23-2025 Albumin [Mass/Vol] 3.7 g/dL Normal 3.4-4.8 [facility] Comment on above: Performed By: #### L AB103, LAB17, [id number], [id number] ####Spun Paste Machine Operator: SHAYY MARROQUIN ([phone])[facility])[address] [place] [address] ALP [Catalytic activity/Vol] 209 U/L High 40-150 [facility] Comment on above: Performed By: #### L AB103, LAB17, [id number], [id number] ####Spun Paste Machine Operator: SHAYY MARROQUIN ([id number])[place] [address] [place] ALT [Catalytic activity/Vol] 18 U/L Normal <30 [facility] Comment on above: Performed By: #### L AB103, LAB17, [id number], [id number] ####Spun Paste Machine Operator: SHAYY MARROQUIN ([id number])[facility])[address] [place] [address] Anion gap [Moles/Vol] 10 mmol/L Normal 3-13 [facility] Comment on above: Performed By: #### L AB103, LAB17, [id number], [id number] ####Spun Paste Machine Operator: SHAYY MARROQUIN ([id number])[facility])[address] [place] [address] AST [Catalytic activity/Vol] 24 U/L Normal <34 [facility] Comment on above: Performed By: #### L AB103, LAB17, [id number], [id number] ####Spun Paste Machine Operator: SHAYY MARROQUIN ([phone])[facility] ([facility])[address] [place] [address] Bilirubin [Mass/Vol] 1.0 mg/dL Normal <1.2 [facility] Comment on above: Performed By: #### L AB103, LAB17, [id number], [id number] ####Spun Paste Machine Operator: SHAYY MARROQUIN ([phone])[facility])[address] [place] [address] Calcium [Mass/Vol] 9.5 mg/dL Normal 8.8-10.0 [facility] Comment on above: Performed By: #### L AB103, LAB17, [id number], [id number] ####Spun Paste Machine Operator: SHAYY MARROQUIN ([phone])[facility])[address] [place] [address] Chloride [Moles/Vol] 103 mmol/L Normal 98-107 [facility] Comment on above: Performed By: #### L AB103, LAB17, [id number], [id number] ####Spun Paste Machine Operator: SHAYY MARROQUIN ([phone])[facility] [address] CO2 [Moles/Vol] 26 mmol/L Normal 23-31 [facility] Comment on above: Performed By: #### L AB103, LAB17, [id number], [id number] ####Spun Paste Machine Operator: SHAYY MARROQUIN ([phone])[facility])[address] [place] [address] Creatinine [Mass/Vol] 1.42 mg/dL High 0.57-1.11 [facility] Comment on above: Performed By: #### L AB103, LAB17, [id number], [id number] ####Spun Paste Machine Operator: SHAYY MARROQUIN ([id number])[address] GLOMERULAR FILTRATION RATE ML/MIN/1.73 SQ M.PREDICTED 37.0 mL/min/1.73m*2 Low >60.0 [facility] Comment on above: Result Comment: Calc ulation based on the Chronic Kidney Disease Epidemiology Collaboration (CKD-EPI) equation refit without adjustment for race Performed By: #### L AB103, LAB17, [id number], [id number] ####Spun Paste Machine Operator: SHAYY MARROQUIN ([phone])[address] Glucose [Mass/Vol] 103 mg/dL Normal 82-115 [facility] Comment on above: Performed By: #### L AB103, LAB17, HSE178, [id number] ####Spun Paste Machine Operator: SHAYY MARROQUIN ([phone])[address] Potassium [Moles/Vol] 3.8 mmol/L Normal 3.5-5.1 [facility] Comment on above: Result Comment: [facility] potassium values may be up to 0.5 mmol/L lower than serum values. Performed By: #### L AB103, LAB17, [id number], [id number] ####Spun Paste Machine Operator: SHAYY MARROQUIN ([id number])[address] Protein [Mass/Vol] 7.4 g/dL Normal 6.4-8.3 [facility] Comment on above: Performed By: #### L AB103, LAB17, [id number], [id number] ####Spun Paste Machine Operator: SHAYY MARROQUIN ([phone])[facility] ([facility])[address] [place] [address] Sodium [Moles/Vol] 139 mmol/L Normal 136-145 [facility] Comment on above: Performed By: #### L AB103, LAB17, [id number], [id number] ####Spun Paste Machine Operator: SHAYY MARROQUIN ([id number])[facility] ([facility])[address] [place] [address] Urea nitrogen [Mass/Vol] 16 mg/dL Normal 9-23 [facility] Comment on above: Performed By: #### L AB103, LAB17, [id number], [id number] ####Spun Paste Machine Operator: SHAYY MARROQUIN ([phone])[facility] ([facility])[address] [place] [address] CT HEAD NECK ANGIO W AND WO IV CONTRASTon 05-23-2025 CT HEAD NECK ANGIO W AND WO IV CONTRAST Normal [facility] CT HEAD WO IV CONTRASTon CT HEAD WO IV CONTRAST Normal [facility] CT Head WO contraston 2024 [facility] Radiology Study observation (narrative) [facility] CT Head WO contrastOrdered B y: Blake Fragoso on 05-23-2025 [facility] Work Phone: CTA Head vessels and Neck ve ssels WO and W contrast Radha 05-23-2025 [facility] Radiology Study observation (narrative) [facility] Comprehensive metabolic 1998 panelon 05-23-2025 Albumin [Mass/Vol] 3.7 g/dL 3.4 - 4.8 g/dL [facility] ALP [Catalytic activity/Vol] 209 U/L High 40 - 150 U/L [facility] ALT [Catalytic activity/Vol] 18 U/L NINF - 30 U/L [facility] Anion gap [Moles/Vol] 10 mmol/L 3 - 13 mmol/L [facility] AST [Catalytic activity/Vol] 24 U/L NINF - 34 U/L [facility] Bilirubin [Mass/Vol] 1 mg/dL NINF - 1.2 mg/dL [facility] Calcium [Mass/Vol] 9.5 mg/dL 8.8 - 10. 0 mg/dL [facility] Chloride [Moles/Vol] 103 mmol/L 98 - 10 7 mmol/L [facility] CO2 [Moles/Vol] 26 mmol/L 23 - 31 mmol/L [facility] Creatinine [Mass/Vol] 1.42 mg/dL High 0.57 - 1.11 mg/dL [facility] GFR/1.73 sq M.predicted (S/P/Bld) [Vol rate/Area] 37 mL/min Low - PINF [facility] Glucose [Mass/Vol] 103 mg/dL 82 - 115 mg/dL [facility] Interpretation and review of laboratory results Abnormal [facility] Potassium [Moles/Vol] 3.8 mmol/L 3.5 - 5.1 mmol/L [facility] Protein [Mass/Vol] 7.4 g/dL 6.4 - 8.3 g/dL [facility] Sodium [Moles/Vol] 139 mmol/L 136 - 145 mmol/L [facility] Urea nitrogen [Mass/Vol] 16 mg/dL 9 - 23 mg/dL [facility] ED Nursing Noteon 05-23-2025 ED Nursing Note Patient BP 232/112, Provider made aware via secure chat. Provider ordered Hydralazine 10mg IV. Normal [facility] ED Nursing Note Patient taken to CT. Normal [facility] ED Provider Noteon ED Provider Note Normal [facility] FIBRINOGENon 05-23-2025 FIBRINOGEN 544 mg/dL High 200-400 [facility] Comment on above: Performed By: #### L [id number] ####Spun Paste Machine Operator: SHAYY MARROQUIN ([id number])[facility] ([address] HIGH SENSITIVITY TROPONIN, S ERIAL BASELINEon 05-23-2025 TROPONIN HS SERIAL BASELINE 9 ng/L Normal <=14 [facility] Comment on above: Result Comment: In i ndividuals presenting with symptoms > 2h, a baseline troponin <= 5 ng/L suggests acutecardiac injury is unlikely and further serial testing is generally not indicated. Performed By: #### L AB103, LAB17, [id number], [id number] ####Spun Paste Machine Operator: SHAYY MARROQUIN ([phone])[facility] ([facility])[address] [place] [address] HIGH SENSITIVITY TROPONIN, S ERIAL, SECOND TESTon 05-23-2025 2H TROPONIN HS (SERIAL 2ND TROPONIN) 9 ng/L Normal <=14 [facility] Comment on above: Result Comment: Risi ng or falling troponin delta below 2 ng/L as compared to baseline value suggests thatacute cardiac injury is unlikely. Performed By: #### L [id number] ####Spun Paste Machine Operator: SHAYY MARROQUIN ([phone])[facility] ([facility])[address] [place] [address] Laboratory - Chemistry and C hemistry - challengeon 05-23-2025 TSH Qn 1.09 m[IU]/L [facility] Magnesium [Mass/Vol] 2.3 mg/dL 1.6 - 2 .6 mg/dL [facility] Glucose [Mass/Vol] 105 mg/dL High 70 - 100 mg/dL [facility] Laboratory - Coagulationon 0 05-23-2025 aPTT Coag (PPP) [Time] 27.9 s 20.0 - 30.5 s [facility] INR Coag (PPP) [Relative time] 1 {INR} 0.9 - 1.1 [facility] PT Coag (Bld) [Time] 10.2 s 9.0 - 1 2.0 s [facility] MAGNESIUMon 05-23-2025 Magnesium [Mass/Vol] 2.3 mg/dL Normal 1.6-2.6 [facility] Comment on above: Result Comment: ESPERANZA R COMMENTS:Higher values can be expected in females during menses. Performed By: #### L AB103, LAB17, [id number], [id number] ####Spun Paste Machine Operator: SHAYY MARROQUIN ([phone])[facility] ([facility])[address] [place] [address] Magnesium [Mass/Vol]on 05-23 [facility] No Panel Informationon 05-23 2h Troponin HS (Serial 2nd Troponin) 9 ng/L NINF - 14 ng/L [facility] Interpretation and review of laboratory results Normal [facility] Interpretation and review of laboratory results Normal [facility] Troponin HS Serial Baseline 9 ng/L NINF - 14 ng/L [facility] Interpretation and review of laboratory results Normal [facility] Interpretation and review of laboratory results Abnormal [facility] PROTIME AND APTTon aPTT Coag (Bld) [Time] 27.9 s Normal 20.0-30.5 [facility] Comment on above: Performed By: #### L [id number] ####Spun Paste Machine Operator: SHAYY MARROQUIN ([phone])[facility])[address] [place] [address] INR Coag (PPP) [Relative time] 1.0 {INR} Normal 0.9-1.1 [facility] Comment on above: Result Comment: Javed mmended Anticoagulant Therapy: SEE BELOW----- INR of 2.0 - 3.0 : - Prophylaxis of Venous Thrombosis (high-risk surgery) - Treatment of Venous Thrombosis - Treatment of Pulmonary Embolism (Includes tissue heart valves, Acute Myocardial Infarction to prevent systemic embolism, Valvular Heart Disease, and Atrial Fibrillation)----- INR of 2.5 - 3.5 : - Mechanical Prosthetic Valves (high risk) - If oral anticoagulant therapy is used to prevent Myocardial Infarction Performed By: #### L [id number] ####Sp[employer] Paste Machine Operator: SHAYY MARROQUIN ([phone])[facility])[address] [place] [address] PT Coag (PPP) [Time] 10.2 s Normal 9.0-12.0 [facility] Comment on above: Performed By: #### L [id number] ####Spun Paste Machine Operator: SHAYY MARROQUIN ([phone])[facility])[address] [place] [address] Progress Noteon 05-23-2025 Progress Note Patient is okay for CT scans with contrast, previously known low GFR. Tk Conte, DO 05/23/252 Normal [facility] SEDIMENTATION RATE, AUTOMATE Don 05-23-2025 SEDIMENTATION RATE, ERYTHROCYTE 10 mm/hr Normal 0-20 [facility] Comment on above: Performed By: #### L [id number], [id number] ####Spun Paste Machine Operator: SHAYY MARROQUIN ([phone])[facility] ([facility])[address] [place] [address] THYROID STIMULATING HORMONEo n 05-23-2025 THYROID STIMULATING HORMONE 1.09 uIU/mL Normal 0.35-4.94 [facility] Comment on above: Performed By: #### L AB103, LAB17, [id number], [id number] ####Spun Paste Machine Operator: SHAYY MARROQUIN ([phone])[facility] ([facility])[address] [place] [address] TSH Qnon 05-23-2025 Interpretation and review of laboratory results Normal [facility] Urinalysis complete panel (U )on 05-23-2025 Bilirubin Ql (U) Negative Negative mg/dL [facility] Clarity (U) Clear Clear [facility] Color (U) Colorless Lt. Yellow [facility] Glucose Ql (U) Normal Normal (<70) mg/dL [facility] Hemoglobin Ql (U) Negative Negative mg/dL [facility] Interpretation and review of laboratory results Normal [facility] Ketones (U) [Mass/Vol] Negative Negat casey mg/dL [facility] Leukocyte esterase Test strip Ql (U) Negative Negative Lorie/uL [facility] Nitrite Ql (U) Negative Negative [facility] pH (U) 7.5 [pH] 5.0 - 8.0 pH [facility] Protein (U) [Mass/Vol] Negative Negat casey mg/dL [facility] Specific gravity (U) [Rel density] 1.016 1.005 - 1.030 [facility] Urobilinogen (U) [Mass/Vol] Normal Normal (0-1) mg/dL [facility] Progress Noteon 05-15-2025 Progress Note Normal [facility] Progress Noteon 05-14-2025 Progress Note Normal [facility] 36on 05-07-2025 36 Normal [facility] Progress Noteon 05-07-2025 Progress Note Normal [facility] Progress Noteon 04-30-2025 Progress Note Normal [facility] Progress Noteon 04-25-2025 Progress Note Normal [facility] Progress Note Normal [facility] Progress Note Normal [facility] Progress Noteon 04-23-2025 Progress Note Normal [facility] Progress Note Normal [facility] CBC (HEMOGRAM)on 04-20-2025 Erythrocyte distribution width (RBC) [Ratio] 12.8 % Normal 11.5-15.0 [facility] Comment on above: Performed By: #### L [id number] ####[employer] P[employer] Machine Operator: SHAYY MARROQUIN ([phone])[facility])[address] [place] [address] Hematocrit (Bld) [Volume fraction] 40.6 % Normal 35.0-47.0 [facility] Comment on above: Performed By: #### L [id number] ####[employer] P[employer] Machine Operator: SHAYY MARROQUIN ([phone])[facility])[address] [place] [address] Hemoglobin (Bld) [Mass/Vol] 13.8 g/dL Normal 11.7-16.0 [facility] Comment on above: Performed By: #### L [id number] ####[employer] P[employer] Machine Operator: SHAYY MARROQUIN ([phone])[facility])[address] [place] [address] MCH (RBC) [Entitic mass] 30.7 pg Normal 26.0-34.0 [facility] Comment on above: Performed By: #### L [id number] ####[employer] Operator: SHAYY MARROQUIN ([phone])[address] MCHC 34.0 % Normal 30.5-36.0 [facility] Comment on above: Performed By: #### L [id number] ####[employer] Operator: SHAYY MARROQUIN ([phone])[address] MCV (RBC) [Entitic vol] 90.4 fL Normal 77.0-99.0 [facility] Comment on above: Performed By: #### L [id number] ####[employer] P[employer] Machine Operator: SHAYY MARROQUIN ([phone])[facility])[address] [place] [address] Platelet mean volume (Bld) [Entitic vol] 9.2 fL Normal 9.0-12.7 [facility] Comment on above: Performed By: #### L [id number] ####Spun P[employer] Machine Operator: SHAYY MARROQUIN ([phone])[facility] ([facility])[address] [place] [address] Platelets (Bld) [#/Vol] 222 10*3/uL Normal 140-440 [facility] Comment on above: Performed By: #### L [id number] ####[employer] Operator: SHAYY MARROQUIN ([phone])[facility])[address] [place] [address] RBC (Bld) [#/Vol] 4.49 10*6/uL Normal 3.80-5.20 [facility] Comment on above: Performed By: #### L [id number] ####[employer] Machine Operator: SHAYY MARROQUIN ([phone])[facility] ([facility])[address] [place] [address] WBC (Bld) [#/Vol] 11.2 10*3/uL High 3.6-10.7 [facility] Comment on above: Performed By: #### L [id number] ####[employer] Operator: SHAYY MARROQUIN ([phone])[facility] ([facility])[address] [place] [address] CBC panel Auto (Bld)on 04-20 Erythrocyte distribution width (RBC) [Ratio] 12.8 % 11.5 - 15.0 % [facility] Hematocrit (Bld) [Volume fraction] 40.6 % 35.0 - 47.0 % [facility] Hemoglobin (Bld) [Mass/Vol] 13.8 g/dL 11.7 - 16.0 g/dL [facility] Interpretation and review of laboratory results Abnormal [facility] MCH (RBC) [Entitic mass] 30.7 pg 26.0 - 34.0 pg [facility] MCHC (RBC) [Mass/Vol] 34 % 30.5 - 36.0 % [facility] [facility] MCV (RBC) [Entitic vol] 90.4 fL 77.0 - 99.0 fL [facility] Platelet mean volume (Bld) [Entitic vol] 9.2 fL 9.0 - 12.7 fL [facility] Platelets (Bld) [#/Vol] 222 10*3/uL 140 - 440 10*3/uL [facility] RBC (Bld) [#/Vol] 4.49 10*6/uL 3.80 - 5.20 10*6/uL [facility] WBC (Bld) [#/Vol] 11.2 10*3/uL High 3.6 - 10.7 10*3/uL [facility] COMPREHENSIVE METABOLIC PANE Frank 04-20-2025 Albumin [Mass/Vol] 3.1 g/dL Low 3.4-4.8 [facility] Comment on above: Performed By: #### L AB17, [id number] ####Spun Paste Machine Operator: SHAYY MARROQUIN ([phone])[facility] ([facility])[address] [place] [address] ALP [Catalytic activity/Vol] 158 U/L High 40-150 [facility] Comment on above: Performed By: #### L AB17, [id number] ####Spun Paste Machine Operator: SHAYY MARROQUIN ([phone])[facility] ([facility])[address] [place] [address] ALT [Catalytic activity/Vol] 7 U/L Normal <30 [facility] Comment on above: Performed By: #### L AB17, [id number] ####Spun Paste Machine Operator: SHAYY MARROQUIN ([phone])[facility] ([facility])[address] [place] [address] Anion gap [Moles/Vol] 13 mmol/L Normal 3-13 [facility] Comment on above: Performed By: #### L AB17, [id number] ####Spun Paste Machine Operator: SHAYY MARROQUIN ([phone])[facility] ([facility])[address] AST [Catalytic activity/Vol] 20 U/L Normal <34 [facility] Comment on above: Performed By: #### L AB17, [id number] ####Spun Paste Machine Operator: SHAYY MARROQUIN ([phone])[facility])[address] [place] [address] Bilirubin [Mass/Vol] 0.5 mg/dL Normal <1.2 [facility] Comment on above: Performed By: #### L AB17, [id number] ####Spun Paste Machine Operator: SHAYY MARROQUIN ([phone])[facility] ([facility])[address] [place] [address] Calcium [Mass/Vol] 8.8 mg/dL Normal 8.8-10.0 [facility] Comment on above: Performed By: #### L AB17, [id number] ####Spun Paste Machine Operator: SHAYY MARROQUIN ([phone])[facility] ([facility])[address] [place] [address] Chloride [Moles/Vol] 106 mmol/L Normal 98-107 [facility] Comment on above: Performed By: #### L AB17, [id number] ####Spun Paste Machine Operator: SHAYY MARROQUIN ([phone])[facility] ([facility])[address] [place] [address] CO2 [Moles/Vol] 19 mmol/L Low 23-31 [facility] Comment on above: Performed By: #### L AB17, [id number] ####Spun Paste Machine Operator: SHAYY MARROQUIN ([phone])[facility] ([facility])[address] [place] [address] [place] Creatinine [Mass/Vol] 1.26 mg/dL High 0.57-1.11 [facility] Comment on above: Performed By: #### L AB17, [id number] ####Spun Paste Machine Operator: SHAYY MARROQUIN ([phone])[facility])[address] [place] [address] [place] GLOMERULAR FILTRATION RATE ML/MIN/1.73 SQ M.PREDICTED 42.7 mL/min/1.73m*2 Low >60.0 [facility] Comment on above: Result Comment: Calc ulation based on the Chronic Kidney Disease Epidemiology Collaboration (CKD-EPI) equation refit without adjustment for race Performed By: #### L AB17, [id number] ####Spun Paste Machine Operator: SHAYY MARROQUIN ([phone])[facility])[address] [place] [address] Glucose [Mass/Vol] 99 mg/dL Normal 82-115 [facility] Comment on above: Performed By: #### L AB17, [id number] ####Spun Paste Machine Operator: SHAYY MARROQUIN ([phone])[facility])[address] [place] [address] Potassium [Moles/Vol] 3.0 mmol/L Low 3.5-5.1 [facility] Comment on above: Result Comment: [facility] potassium values may be up to 0.5 mmol/L lower than serum values. Performed By: #### L AB17, [id number] ####Spun Paste Machine Operator: SHAYY MARROQUIN ([phone])[facility] ([facility])[address] [place] [address] Protein [Mass/Vol] 6.1 g/dL Low 6.4-8.3 [facility] Comment on above: Performed By: #### L AB17, [id number] ####Spun Paste Machine Operator: SHAYY MARROQUIN ([phone])[facility])[address] [place] [address] Sodium [Moles/Vol] 138 mmol/L Normal 136-145 [facility] Comment on above: Performed By: #### L AB17, [id number] ####Spun Paste Machine Operator: SHAYY MARROQUIN ([phone])[facility])[address] [place] [address] Urea nitrogen [Mass/Vol] 21 mg/dL Normal 9-23 [facility] Comment on above: Performed By: #### L AB17, [id number] ####Spun Paste Machine Operator: SHAYY MARROQUIN ([phone])[facility])[address] [place] [address] Comprehensive metabolic 1998 panelon 04-20-2025 Albumin [Mass/Vol] 3.1 g/dL Low 3.4 - 4.8 g/dL [facility] ALP [Catalytic activity/Vol] 158 U/L High 40 - 150 U/L [facility] ALT [Catalytic activity/Vol] 7 U/L NINF - 30 U/L [facility] Anion gap [Moles/Vol] 13 mmol/L 3 - 13 mmol/L [facility] AST [Catalytic activity/Vol] 20 U/L NINF - 34 U/L [facility] Bilirubin [Mass/Vol] 0.5 mg/dL NINF - 1.2 mg/dL [facility] Calcium [Mass/Vol] 8.8 mg/dL 8.8 - 10. 0 mg/dL [facility] Chloride [Moles/Vol] 106 mmol/L 98 - 10 7 mmol/L [facility] CO2 [Moles/Vol] 19 mmol/L Low 23 - 31 mmol/L [facility] Creatinine [Mass/Vol] 1.26 mg/dL High 0.57 - 1.11 mg/dL [facility] GFR/1.73 sq M.predicted (S/P/Bld) [Vol rate/Area] 42.7 mL/min Low - PINF [facility] Comment on above: Calculation based on the Chronic Kidney Disease Epidemiology Collaboration (CKD-EPI) equation refit without adjustment for race Glucose [Mass/Vol] 99 mg/dL 82 - 115 mg/dL [facility] Interpretation and review of laboratory results Abnormal [facility] Potassium [Moles/Vol] 3 mmol/L Low 3.5 - 5.1 mmol/L [facility] Comment on above: Plasma potassium clovis ues may be up to 0.5 mmol/L lower than serum values. Protein [Mass/Vol] 6.1 g/dL Low 6.4 - 8.3 g/dL [facility] Sodium [Moles/Vol] 138 mmol/L 136 - 145 mmol/L [facility] Urea nitrogen [Mass/Vol] 21 mg/dL 9 - 23 mg/dL [facility] Laboratory - Chemistry and C hemistry - challengeon 04-20-2025 Magnesium [Mass/Vol] 2.1 mg/dL 1.6 - 2 .6 mg/dL [facility] MAGNESIUMon 04-20-2025 Magnesium [Mass/Vol] 2.1 mg/dL Normal 1.6-2.6 [facility] Comment on above: Result Comment: ORDKeke R COMMENTS:Higher values can be expected in females during menses. Performed By: #### L AB17, [id number] ####Spun Paste Machine Operator: SHAYY MARROQUIN ([phone])[facility])[address] [place] [address] Magnesium [Mass/Vol]on 04-20 Interpretation and review of laboratory results Normal [facility] Higher values can be expected in females during menses. [facility] Progress Noteon 04-20-2025 Progress Note Nutrition rescreen completed. Chart reviewed. Patient to be monitored and followed by the diet natural gas technician. Rocio Harrington, DT Normal [facility] CBC (HEMOGRAM)on 04-19-2025 Erythrocyte distribution width (RBC) [Ratio] 13.0 % Normal 11.5-15.0 [facility] Comment on above: Performed By: #### L [id number] ####Spun Paste Machine Operator: SHAYY MARROQUIN ([phone])[facility])[address] [place] [address] Hematocrit (Bld) [Volume fraction] 41.4 % Normal 35.0-47.0 [facility] Comment on above: Performed By: #### L AB294 ####Spun Paste Machine Operator: SHAYY MARROQUIN ([phone])[facility])[address] [place] [address] Hemoglobin (Bld) [Mass/Vol] 14.1 g/dL Normal 11.7-16.0 [facility] Comment on above: Performed By: #### L [id number] ####Spun Paste Machine Operator: SHAYY MARROQUIN ([phone])[facility])[address] [place] [address] MCH (RBC) [Entitic mass] 31.2 pg Normal 26.0-34.0 [facility] Comment on above: Performed By: #### L AB294 ####Spun Paste Machine Operator: SHAYY MARROQUIN ([phone])[facility])[address] [place] [address] MCHC 34.1 % Normal 30.5-36.0 [facility] Comment on above: Performed By: #### L AB294 ####Spun Paste Machine Operator: SHAYY MARROQUIN ([phone])[facility])[address] [place] [address] MCV (RBC) [Entitic vol] 91.6 fL Normal 77.0-99.0 [facility] Comment on above: Performed By: #### L [id number] ####Spun Paste Machine Operator: SHAYY MARROQUIN ([phone])[facility] ([facility])[address] [place] [address] Platelet mean volume (Bld) [Entitic vol] 9.4 fL Normal 9.0-12.7 [facility] Comment on above: Performed By: #### L [id number] ####Spun Paste Machine Operator: SHAYY MARROQUIN ([phone])[facility] ([facility])[address] [place] [address] Platelets (Bld) [#/Vol] 225 10*3/uL Normal 140-440 [facility] Comment on above: Performed By: #### L AB294 ####Spun Paste Machine Operator: SHAYY MARROQUIN ([phone])[facility])[address] [place] [address] RBC (Bld) [#/Vol] 4.52 10*6/uL Normal 3.80-5.20 [facility] Comment on above: Performed By: #### L AB294 ####Spun Paste Machine Operator: SHAYY MARROQUIN ([phone])[facility])[address] [place] [address] WBC (Bld) [#/Vol] 11.4 10*3/uL High 3.6-10.7 [facility] Comment on above: Performed By: #### L AB294 ####Spun Paste Machine Operator: SHAYY MARROQUIN ([phone])[facility])[address] [place] [address] CBC panel Auto (Bld)on 04-19 Erythrocyte distribution width (RBC) [Ratio] 13 % 11.5 - 15.0 % [facility] Hematocrit (Bld) [Volume fraction] 41.4 % 35.0 - 47.0 % [facility] Hemoglobin (Bld) [Mass/Vol] 14.1 g/dL 11.7 - 16.0 g/dL [facility] Interpretation and review of laboratory results Abnormal [facility] MCH (RBC) [Entitic mass] 31.2 pg 26.0 - 34.0 pg [facility] MCHC (RBC) [Mass/Vol] 34.1 % 30.5 - 36.0 % [facility] MCV (RBC) [Entitic vol] 91.6 fL 77.0 - 99.0 fL [facility] Platelet mean volume (Bld) [Entitic vol] 9.4 fL 9.0 - 12.7 fL [facility] Platelets (Bld) [#/Vol] 225 10*3/uL 140 - 440 10*3/uL [facility] RBC (Bld) [#/Vol] 4.52 10*6/uL 3.80 - 5.20 10*6/uL [facility] WBC (Bld) [#/Vol] 11.4 10*3/uL High 3.6 - 10.7 10*3/uL [facility] COMPREHENSIVE METABOLIC PANE Frank 04-19-2025 Albumin [Mass/Vol] 3.1 g/dL Low 3.4-4.8 [facility] Comment on above: Performed By: #### Vincent AB18, [id number], LAB17 ####Spun Paste Machine Operator: SHAYY MARROQUIN ([phone])[address] ALP [Catalytic activity/Vol] 157 U/L High 40-150 [facility] Comment on above: Performed By: #### Vincent AB18, [id number], LAB17 ####Spun Paste Machine Operator: SHAYY MARROQUIN ([phone])[address] ALT [Catalytic activity/Vol] 6 U/L Normal <30 [facility] Comment on above: Performed By: #### L AB18, [id number], LAB17 ####Spun Paste Machine Operator: SHAYY MARROQUIN ([phone])[facility] ([facility])[address] [place] [address] Anion gap [Moles/Vol] 11 mmol/L Normal 3-13 [facility] Comment on above: Performed By: #### L AB18, [id number], LAB17 ####Spun Paste Machine Operator: SHAYY MARROQUIN ([phone])[facility] [place] [address] AST [Catalytic activity/Vol] 16 U/L Normal <34 [facility] Comment on above: Performed By: #### L AB18, [id number], LAB17 ####Spun Paste Machine Operator: SHAYY MARROQUIN ([phone])[facility] ([facility])[address] [place] [address] Bilirubin [Mass/Vol] 0.6 mg/dL Normal <1.2 [facility] Comment on above: Performed By: #### L AB18, [id number], LAB17 ####Spun Paste Machine Operator: SHAYY MARROQUIN ([phone])[facility] ([facility])[address] [place] [address] Calcium [Mass/Vol] 8.7 mg/dL Low 8.8-10.0 [facility] Comment on above: Performed By: #### L AB18, [id number], LAB17 ####Spun Paste Machine Operator: SHAYY MARROQUIN ([phone])[facility] ([facility])[address] [place] [address] [place] Chloride [Moles/Vol] 107 mmol/L Normal 98-107 [facility] Comment on above: Performed By: #### L AB18, [id number], LAB17 ####Spun Paste Machine Operator: SHAYY MARROQUIN ([phone])[facility] ([facility])[address] [place] [address] [place] CO2 [Moles/Vol] 20 mmol/L Low 23-31 [facility] Comment on above: Performed By: #### L AB18, [id number], LAB17 ####Spun Paste Machine Operator: SHAYY MARROQUIN ([phone])[facility] ([facility])[address] [place] [address] [place] Creatinine [Mass/Vol] 1.12 mg/dL High 0.57-1.11 [facility] Comment on above: Performed By: #### Vincent CAMARA18, [id number], LAB17 ####Spun Paste Machine Operator: SHAYY MARROQUIN ([phone])[facility])[address] [place] [address] GLOMERULAR FILTRATION RATE ML/MIN/1.73 SQ M.PREDICTED 49.2 mL/min/1.73m*2 Low >60.0 [facility] Comment on above: Result Comment: Calc ulation based on the Chronic Kidney Disease Epidemiology Collaboration (CKD-EPI) equation refit without adjustment for race Performed By: #### Vincent CAMARA18, [id number], LAB17 ####Spun Paste Machine Operator: SHAYY MARROQUIN ([phone])[facility])[address] [place] [address] Glucose [Mass/Vol] 94 mg/dL Normal 82-115 [facility] Comment on above: Performed By: #### Vincent CAMARA18, [id number], LAB17 ####Spun Paste Machine Operator: SHAYY MARROQUIN ([phone])[facility])[address] [place] [address] Potassium [Moles/Vol] 3.2 mmol/L Low 3.5-5.1 [facility] Comment on above: Result Comment: [facility] potassium values may be up to 0.5 mmol/L lower than serum values. Performed By: #### Vincent KIMBALL, [id number], LAB17 ####Spun Paste Machine Operator: SHAYY MARROQUIN ([phone])[facility])[address] [place] [address] Protein [Mass/Vol] 5.9 g/dL Low 6.4-8.3 [facility] Comment on above: Performed By: #### Vincent AB18, [id number], LAB17 ####Spun Paste Machine Operator: SHAYY MARROQUIN ([phone])[facility])[address] [place] [address] Sodium [Moles/Vol] 138 mmol/L Normal 136-145 [facility] Comment on above: Performed By: #### L AB18, [id number], LAB17 ####Spun Paste Machine Operator: SHAYY MARROQUIN ([phone])[facility] ([facility])[address] [place] [address] Urea nitrogen [Mass/Vol] 20 mg/dL Normal 9-23 [facility] Comment on above: Performed By: #### L AB18, [id number], LAB17 ####Spun Paste Machine Operator: SHAYY MARROQUIN ([phone])[facility])[address] [place] [address] Comprehensive metabolic 1998 panelon 04-19-2025 Albumin [Mass/Vol] 3.1 g/dL Low 3.4 - 4.8 g/dL [facility] ALP [Catalytic activity/Vol] 157 U/L High 40 - 150 U/L [facility] ALT [Catalytic activity/Vol] 6 U/L NINF - 30 U/L [facility] Anion gap [Moles/Vol] 11 mmol/L 3 - 13 mmol/L [facility] AST [Catalytic activity/Vol] 16 U/L NINF - 34 U/L [facility] Bilirubin [Mass/Vol] 0.6 mg/dL NINF - 1.2 mg/dL [facility] Calcium [Mass/Vol] 8.7 mg/dL Low 8.8 - 10. 0 mg/dL [facility] Chloride [Moles/Vol] 107 mmol/L 98 - 10 7 mmol/L [facility] CO2 [Moles/Vol] 20 mmol/L Low 23 - 31 mmol/L [facility] Creatinine [Mass/Vol] 1.12 mg/dL High 0.57 - 1.11 mg/dL [facility] GFR/1.73 sq M.predicted (S/P/Bld) [Vol rate/Area] 49.2 mL/min Low - PINF [facility] Comment on above: Calculation based on the Chronic Kidney Disease Epidemiology Collaboration (CKD-EPI) equation refit without adjustment for race Glucose [Mass/Vol] 94 mg/dL 82 - 115 mg/dL [facility] Potassium [Moles/Vol] 3.2 mmol/L Low 3.5 - 5.1 mmol/L [facility] Comment on above: Plasma potassium clovis ues may be up to 0.5 mmol/L lower than serum values. Protein [Mass/Vol] 5.9 g/dL Low 6.4 - 8.3 g/dL [facility] Sodium [Moles/Vol] 138 mmol/L 136 - 145 mmol/L [facility] Urea nitrogen [Mass/Vol] 20 mg/dL 9 - 23 mg/dL [facility] Consulton 04-19-2025 Consult Normal [facility] HEMOGLOBIN A1Con 04-19-2025 Glucose [Mass/Vol] 114 mg/dL Normal [facility] Comment on above: Result Comment: SARAHE R COMMENTS:HbA1c values of 5.7-6.4 percent indicate an increased risk for developing diabetes mellitus. HbA1c values greater than or equal to 6.5 percent are diagnostic of diabetes mellitus. For diagnosis of diabetes in individuals without unequivocal hyperglycemia, results should be confirmed by repeat testing. Performed By: #### L AB90 ####Spun Paste Machine Operator: SHAYY MARROQUIN ([phone])[address] HEMOGLOBIN A1C 5.6 %HbA1C Normal <5.7 [facility] Comment on above: Result Comment: Norm al less than 5.7%Prediabetes 5.7% to 6.4%Diabetes 6.5% or higher--HgbA1C levels may not be accurate in patients who have renal disease, received recent blood transfusions, are anemic, or who have dyshemoglobinemia. Performed By: #### L AB90 ####Spun Paste Machine Operator: SHAYY MARROQUIN ([phone])[address] LIPID PANELon 04-19-2025 Cholesterol [Mass/Vol] 172 mg/dL Normal <200 [facility] Comment on above: Performed By: #### L AB18, [id number], LAB17 ####Spun Paste Machine Operator: SHAYY MARROQUIN ([phone])[address] Cholesterol in HDL [Mass/Vol] 48 mg/dL Low >=60 [facility] Comment on above: Performed By: #### L AB18, [id number], LAB17 ####Spun Paste Machine Operator: SHAYY [phone])[facility] [place] [address] Cholesterol.total/Chol esterol in HDL [Mass ratio] 4 {ratio} Normal [facility] Comment on above: Result Comment: Ref Range:< 3 Low Risk for CHD3-6 Mod Risk for CHD> 6 High Risk for CHD Performed By: #### L AB18, [id number], LAB17 ####Spun Paste Machine Operator: SHAYY MARROQUIN ([phone])[facility] ([facility])[address] [place] [address] LOW DENSITY LIPOPROTEIN 105 mg/dL High 0-<100 [facility] Comment on above: Performed By: #### Vincent AB18, [id number], LAB17 ####Spun Paste Machine Operator: SHAYY MARROQUIN ([phone])[facility])[address] [place] [address] NON-HDL CHOLESTEROL, CALCULATED 124 Normal <130 [facility] Comment on above: Performed By: #### Vincent AB18, [id number], LAB17 ####Spun Paste Machine Operator: SHAYY MARROQUIN ([phone])[facility])[address] [place] [address] Triglyceride [Mass/Vol] 95 mg/dL Normal <150 [facility] Comment on above: Performed By: #### Vincent AB18, [id number], LAB17 ####Spun Paste Machine Operator: SHAYY MARROQUIN ([phone])[facility])[address] [place] [address] VERY LOW DENSITY LIPOPROTEIN, CALCULATED 19 mg/dL Normal <=30 [facility] Comment on above: Performed By: #### L AB18, [id number], LAB17 ####Spun Paste Machine Operator: SHAYY MARROQUIN ([phone])[facility])[address] [place] [address] Laboratory - Chemistry and C hemistry - challengeon 04-19-2025 Magnesium [Mass/Vol] 2.1 mg/dL 1.6 - 2 .6 mg/dL [facility] Average glucose Estimated from glycated hemoglobin (Bld) [Mass/Vol] 114 mg/dL [facility] Laboratory - Hematology and Cell countson 04-19-2025 HbA1c (Bld) [Mass fraction] 5.6 % [facility] Comment on above: Normal less than 5.7 % Prediabetes 5.7% to 6.4% Diabetes 6.5% or higher --HgbA1C levels may not be accurate in patients who have renal disease, received recent blood transfusions, are anemic, or who have dyshemoglobinemia. Lipid 1996 panelon 5 Cholesterol [Mass/Vol] 172 [facility]dL [facility] Cholesterol in HDL [Mass/Vol] 48 mg/dL Low 60 - PINF mg/dL [facility] Cholesterol in LDL [Mass/Vol] 105 mg/dL High 0 - <100 [facility] Cholesterol.total/Chol esterol in HDL [Mass ratio] 4 {ratio} [facility] Comment on above: Ref Range: < 3 Low Risk for CHD 3-6 Mod Risk for CHD > 6 High Risk for CHD NON-HDL CHOLESTEROL, CALCULATED 124 NINF - 130 [facility] Triglyceride [Mass/Vol] 95 mg/dL [facility] - 150 mg/dL [facility] VERY LOW DENSITY LIPOPROTEIN, CALCULATED 19 mg/dL [facility] - 30 mg/dL [facility] MAGNESIUMon 04-19-2025 Magnesium [Mass/Vol] 2.1 mg/dL Normal 1.6-2.6 [facility] Comment on above: Result Comment: ESPERANZA Abarca COMMENTS:Higher values can be expected in females during menses. Performed By: #### L AB18, [id number], LAB17 ####Spun Paste Machine Operator: SHAYY MARROQUIN ([phone])[address] MR Brain WO contraston 04-19 1. No acute intracranial abnormalities. 2. Generalized brain parenchymal volume loss and extensive chronic microvascular ischemic changes in the supratentorial white matter. 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 FINDINGS: Acute Change: No evidence of acute infarction. No fluid collection or intracranial hemorrhage. Mass Lesion: None. Parenchyma: Confluent foci of T2/FLAIR hyperintensity in the supratentorial white matter which most likely represent extensive chronic microvascular ischemic changes. 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 Ventricles and sulci: Moderate generalized brain parenchymal volume loss with proportionate ventricular enlargement. Skull base: Normal appearance of the pituitary gland. Normal position of the cerebellar tonsils. Vessels: The major intracranial flow voids are preserved. Extracranial structures: Normal orbits. No extracranial soft tissue abnormalities. Sinuses/mastoids: Clear Bones: No pathologic marrow infiltration. [facility] Keyanna Marks MD - 04/19/2025 [facility] 1940 [id number] Exam Date/Time: 04/19/2025 11:40 Procedure: MR BRAIN WO CONTRAST Ordering Provider: FARLEY MARK Reason For Exam: Neuro deficit, acute, stroke suspected MRI BRAIN WITHOUT CONTRAST INDICATIONS: Neuro deficit, acute, stroke suspected COMPARISON: None TECHNIQUE: Multiplanar, multisequence MRI of the brain was performed without contrast. FINDINGS: Acute Change: No evidence of acute infarction. No fluid collection or intracranial hemorrhage. Mass Lesion: None. Parenchyma: Confluent foci of T2/FLAIR hyperintensity in the supratentorial white matter which most likely represent extensive chronic microvascular ischemic changes. 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 Ventricles and sulci: Moderate generalized brain parenchymal volume loss with proportionate ventricular enlargement. Skull base: Normal appearance of the pituitary gland. Normal position of the cerebellar tonsils. Vessels: The major intracranial flow voids are preserved. Extracranial structures: Normal orbits. No extracranial soft tissue abnormalities. Sinuses/mastoids: Clear Bones: No pathologic marrow infiltration. IMPRESSION: 1. No acute intracranial abnormalities. 2. Generalized brain parenchymal volume loss and extensive chronic microvascular ischemic changes in the supratentorial white matter. 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 [employer] No Panel Informationon 04-19 Interpretation and review of laboratory results Abnormal [facility] HbA1c values of 5.7- 6.4 percent indicate an increased risk for developing diabetes mellitus. HbA1c values greater than or equal to 6.5 percent are diagnostic of diabetes mellitus. For diagnosis of diabetes in individuals without unequivocal hyperglycemia, results should be confirmed by repeat testing. [employer] Progress Noteon 04-19-2025 Progress Note Normal [facility] Progress Note Normal [facility] Progress Note Normal [facility] US Heart TransthoracicOrdere d By: Margaux Chicas on 04-19-2025 Aortic Sinus Valsalva 3.2 cm Sum [employer] Work Phone: [phone] Aortic Sinus Valsalva Index 1.73 cm/m2 [employer] Phone: [phone] Aortic valve Mean systole pressure gradient by US.doppler derived full Bernoulli 3 mmHg [employer] Phone: [phone] Aortic valve Orifice area by US 3.1 cm2 [employer] Phone: Aortic valve Peak systolic flow by US.doppler 0.9 m/s [employer] Phone: [phone] Ascending Aorta 3.5 cm [employer] Phone: [phone] Ascending Aorta Index 1.89 cm/m2 Sum [employer] Work Phone: [phone] AV Area by Peak Velocity 2 cm2 [employer] Phone: [phone] AV Area by VTI 2.3 cm2 [employer] Phone: AV Peak Gradient 7 mmHg [facility] Work Phone: AV Peak Velocity 1.3 m/s [facility] Work Phone: AV Velocity Ratio 0.69 [facility] [employer] Work Phone: AV VTI 28.7 cm [facility] [employer] Work Phone: APARNA/BSA Peak Velocity 1.1 cm2/m2 Sum nd [employer] Work Phone: APARNA/BSA VTI 1.2 cm2/m2 [facility] [employer] Work Phone: E/E' Lateral 5 [facility] [employer] Work Phone: E/E' Ratio (Averaged) 6.25 Sum nd [employer] Work Phone: E/E' Septal 7.5 [facility] [employer] Phone: Est. RA Pressure 3 mmHg [facility] Work Phone: Fractional Shortening 2D 28 % 28 - 44 % [facility] Work Phone: Interpretation and review of laboratory results Abnormal [facility] Phone: IVC Diameter 1.4 cm [facility] Work Phone: IVSd 1 cm Abnormal 0.6 - 0.9 cm [facility] Phone: LA Diameter 3 cm [facility] Phone: LA Size Index 1.62 cm/m2 [facility] Phone: LA Volume 2C 40 mL 22 - 52 mL [facility] Work Phone: LA Volume 4C 27 mL 22 - 52 mL [employer] Work Phone: LA Volume A/L 37 mL [employer] Work Phone: LA Volume BP 34 mL 22 - 52 mL [facility] Work Phone: LA Volume Index 2C 22 mL/m2 16 - 34 mL/m2 [employer] Phone: LA Volume Index 4C 15 mL/m2 Abnormal 16 - 34 mL/m2 [facility] Work Phone: LA Volume Index A/L 20 mL/m2 16 - 34 mL/m2 [facility] [employer] Work Phone: LA Volume Index BP 18 ml/m2 16 - 34 ml/m2 [facility] [employer] Work Phone: Left ventricular Ejection fraction by US.2D+Calculated by biplane method of disks 55 % 55 - 100 % [facility] [employer] Work Phone: LV E' Lateral Velocity 9 cm/s [facility] Work Phone: LV E' Septal Velocity 6 cm/s [facility] Work Phone: LV EDV A2C 79 mL [facility] [employer] Work Phone: LV EDV A4C 54 mL [facility] [employer] Work Phone: LV EDV BP 66 mL 56 - 104 mL [facility] [employer] Work Phone: LV EDV Index A2C 43 mL/m2 [facility] [employer] Work Phone: LV EDV Index A4C 29 mL/m2 [facility] [employer] Work Phone: LV EDV Index BP 36 mL/m2 [facility] [employer] Work Phone: LV Ejection Fraction A2C 54 % [facility] [employer] Work Phone: LV Ejection Fraction A4C 56 % [facility] [employer] Work Phone: LV ESV A2C 36 mL [facility] [employer] Work Phone: LV ESV A4C 25 mL [facility] [employer] Work Phone: LV ESV BP 30 mL 19 - 49 mL [facility] [employer] Work Phone: LV ESV Index A2C 19 mL/m2 [facility] [employer] Work Phone: LV ESV Index A4C 14 mL/m2 [facility] [employer] Work Phone: LV ESV Index BP 16 mL/m2 [facility] [employer] Work Phone: LV Mass 2D 153.4 g 67 - 162 g [facility] [employer] Work Phone: LV Mass 2D Index 82.9 g/m2 43 - 95 g/m2 [employer] Work Phone: LV RWT Ratio 0.38 [employer] Work Phone: LVIDd 4.7 cm 3.9 - 5.3 cm [employer] Work Phone: LVIDd Index 2.54 cm/m2 [employer] Work Phone: LVIDs 3.4 cm [employer] Work Phone: LVIDs Index 1.84 cm/m2 [employer] Work Phone: LVOT Cardiac Output 3.8 liter/mi nu te [employer] Work Phone: LVOT Diameter 2 cm [employer] Work Phone: LVOT Mean Gradient 2 mmHg [employer] Work Phone: LVOT Peak Gradient 3 mmHg [employer] Work Phone: LVOT Peak Velocity 0.9 m/s [employer] Work Phone: LVOT Stroke Volume Index 37.5 mL/m2 [employer] Work Phone: LVOT SV 69.4 ml [employer] Work Phone: LVOT VTI 22.1 cm [employer] Work Phone: LVOT:AV VTI Index 0.77 [employer] Work Phone: LVPWd 0.9 cm 0.6 - 0.9 cm [employer] Work Phone: MV A Velocity 0.62 m/s [employer] Work Phone: MV Area by VTI 3.6 cm2 [employer] Work Phone: MV E Velocity 0.45 m/s [employer] Work Phone: MV E Wave Deceleration Time 299.6 ms [employer] Work Phone: MV E/A 0.73 [employer] Work Phone: MV Max Velocity 0.8 m/s [employer] Work Phone: MV Mean Gradient 1 mmHg [facility] Work Phone: MV Mean Velocity 0.5 m/s [facility] Work Phone: MV Peak Gradient 3 mmHg [facility] Work Phone: MV VTI 19.4 cm [facility] Work Phone: MV:LVOT VTI Index 0.88 [facility] Work Phone: PV Max Velocity 0.9 m/s [facility] Work Phone: PV Mean Gradient 2 mmHg [facility] Work Phone: PV Mean Velocity 0.6 m/s [facility] [employer] Work Phone: PV Peak Gradient 3 mmHg [facility] [employer] Work Phone: RA Area 4C 29.6 mL [facility] [employer] Work Phone: RV Basal Dimension 3.2 cm [facility] [employer] Work Phone: RV Free Wall Peak S' 9 cm/s [facility] [employer] Work Phone: RV Longitudinal Dimension 6.6 cm [facility] [employer] Work Phone: RV Mid Dimension 2.5 cm [facility] [employer] Work Phone: RVOT Mean Gradient 2 mmHg [facility] [employer] Work Phone: RVOT Peak Gradient 3 mmHg [facility] [employer] Work Phone: RVOT Peak Velocity 0.8 m/s [facility] [employer] Work Phone: RVOT VTI 22.2 cm [facility] [employer] Work Phone: RVSP 30 mmHg [facility] [employer] Work Phone: Sinotubular Junction 2.6 cm [facility] Work Phone: TAPSE 1.7 cm 1.7 cm [facility] [employer] Work Phone: TR Max Velocity 2.6 m/s [facility] [employer] Work Phone: [facility] [employer] Work Phone: US Heart Transthoracicon 08- 02-2025 Left Ventricle: Left ventricle size is normal. Mildly increased wall thickness. Normal left ventricular systolic function. EF by 2D Simpsons Biplane is 55%. Normal wall motion. Right Ventricle: Right ventricle size is normal. Normal systolic function. Pericardium: Evidence of prominent epicardial fat. No pericardial effusion. No significant valvular abnormalities. Technically difficult study. Left Ventricle Left ventricle size is normal. Mildly increased wall thickness. Normal left ventricular systolic function. EF by 2D [employer]ons Biplane is 55%. Normal wall motion. Normal diastolic function. Right Ventricle Right ventricle size is normal. Normal systolic function. Left Atrium Left atrium size is normal. Right Atrium Right atrium size is normal. IVC/SVC IVC diameter is normal and decreases greater than 50% during inspiration; therefore the estimated right atrial pressure is normal (~3 mmHg). Mitral Valve Valve structure is normal. Trace regurgitation. No stenosis noted. Tricuspid Valve Valve structure is normal. Trace regurgitation. Normal RVSP. Aortic Valve Trileaflet. Trace regurgitation. No stenosis. Pulmonic Valve Valve structure is normal. No regurgitation. Ascending Aorta Normal sized sinuses of Valsalva and ascending aorta. Normal sized STJ. Pericardium Evidence of prominent epicardial fat. No pericardial effusion. Septum No interatrial shunt visualized on color Doppler. Lipomatous hypertrophy present. Study Details Image quality: adequate. Heart rate: 63 bpm. Blood pressure: 149/81 mmHg. No contrast was given. Comparison Study There is no prior study available for comparison Echo Additional Conclusions No significant valvular abnormalities.Technically difficult study. Wall Scoring Baseline Score Index: 1.00 The left ventricular wall motion is normal. CV CPACS CBC W Auto Differential pane l (Bld)on 04-18-2025 Basophils (Bld) [#/Vol] 0 10*3/uL 0.0 - 0.2 10*3/uL [employer] Basophils/100 WBC (Bld) 0.3 % 0.0 - 2.0 % [employer] Eosinophils (Bld) [#/Vol] 0.3 10*3/uL 0.0 - 0.5 10*3/uL [employer] Eosinophils/100 WBC (Bld) 2.7 % 0.0 - 6.0 % [employer] Erythrocyte distribution width (RBC) [Ratio] 13.1 % 11.5 - 15.0 % [employer] Hematocrit (Bld) [Volume fraction] 46.6 % 35.0 - 47.0 % [facility] Hemoglobin (Bld) [Mass/Vol] 15.4 g/dL 11.7 - 16.0 g/dL [facility] Immature granulocytes (Bld) [#/Vol] 0 10*3/uL NINF - 0.1 10*3/uL [facility] Immature granulocytes/100 WBC (Bld) 0.3 % 0.0 - 2.0 % [facility] Interpretation and review of laboratory results Normal [facility] Lymphocytes (Bld) [#/Vol] 2.4 10*3/uL 1.0 - 4.3 10*3/uL [facility] Lymphocytes/100 WBC (Bld) 25.1 % 15.0 - 45.0 % [facility] MCH (RBC) [Entitic mass] 30.5 pg 26.0 - 34.0 pg [facility] MCHC (RBC) [Mass/Vol] 33 % 30.5 - 36.0 % [facility] MCV (RBC) [Entitic vol] 92.3 fL 77.0 - 99.0 fL [facility] Monocytes (Bld) [#/Vol] 0.7 10*3/uL 0.0 - 0.9 10*3/uL [facility] Monocytes/100 WBC (Bld) 6.9 % 5.0 - 13.0 % [facility] Neutrophils (Bld) [#/Vol] 6.3 10*3/uL 1.8 - 7.5 10*3/uL [facility] Neutrophils/100 WBC (Bld) 64.7 % 38.0 - 82.0 % [facility] Nucleated RBC/100 WBC (Bld) [Ratio] 0 % [facility] Platelet mean volume (Bld) [Entitic vol] 9.3 fL 9.0 - 12.7 fL [facility] Platelets (Bld) [#/Vol] 253 10*3/uL 140 - 440 10*3/uL [facility] RBC (Bld) [#/Vol] 5.05 10*6/uL 3.80 - 5.20 10*6/uL [facility] WBC (Bld) [#/Vol] 9.7 10*3/uL 3.6 - 10.7 10*3/uL [facility] CBC WITH AUTO DIFFERENTIALon 04-18-2025 Basophils (Bld) [#/Vol] 0.0 10*3/uL Normal 0.0-0.2 [facility] Comment on above: Performed By: #### L [id number] ####[employer] Operator: SHAYY MARROQUIN ([phone])[facility])[address] [place] [address] Basophils/100 WBC (Bld) 0.3 % Normal 0.0-2.0 [facility] Comment on above: Performed By: #### L [id number] ####[employer] Operator: SHAYY MARROQUIN ([phone])[facility])[address] [place] [address] Eosinophils (Bld) [#/Vol] 0.3 10*3/uL Normal 0.0-0.5 [facility] Comment on above: Performed By: #### L [id number] ####[employer] Operator: SHAYY MARROQUIN ([phone])[facility])[address] [place] [address] Eosinophils/100 WBC (Bld) 2.7 % Normal 0.0-6.0 [facility] Comment on above: Performed By: #### L [id number] ####[employer] Operator: SHAYY MARROQUIN ([phone])[facility])[address] [place] [address] Erythrocyte distribution width (RBC) [Ratio] 13.1 % Normal 11.5-15.0 [facility] Comment on above: Performed By: #### L [id number] ####[employer] Operator: SHAYY MARROQUIN ([phone])[facility])[address] [place] [address] Hematocrit (Bld) [Volume fraction] 46.6 % Normal 35.0-47.0 [facility] Comment on above: Performed By: #### L [id number] ####[employer] Operator: SHAYY MARROQUIN ([phone])[facility])[address] [place] [address] Hemoglobin (Bld) [Mass/Vol] 15.4 g/dL Normal 11.7-16.0 [facility] Comment on above: Performed By: #### L [id number] ####[employer] Operator: SHAYY MARROQUIN ([phone])[facility])[address] [place] [address] IMMATURE GRANS % 0.3 % Normal 0.0-2.0 [facility] Comment on above: Performed By: #### L [id number] ####[employer] Operator: SHAYY MARROQUIN ([phone])[facility])[address] [place] [address] IMMATURE GRANS ABSOLUTE 0.0 10*3/uL Normal <0.1 [facility] Comment on above: Performed By: #### L [id number] ####[employer] Operator: SHAYY MARROQUIN ([phone])[address] Lymphocytes (Bld) [#/Vol] 2.4 10*3/uL Normal 1.0-4.3 [facility] Comment on above: Performed By: #### L [id number] ####[employer] Operator: SHAYY MARROQUIN ([phone])[facility])[address] [place] [address] Lymphocytes/100 WBC (Bld) 25.1 % Normal 15.0-45.0 [facility] Comment on above: Performed By: #### L [id number] ####[employer] Operator: SHAYY MARROQUIN ([phone])[address] MCH (RBC) [Entitic mass] 30.5 pg Normal 26.0-34.0 [facility] Comment on above: Performed By: #### L [id number] ####[employer] Operator: SHAYY MARROQUIN ([phone])[address] MCHC 33.0 % Normal 30.5-36.0 [facility] Comment on above: Performed By: #### L [id number] ####[employer] Operator: SHAYY MARROQUIN ([id number])[facility])[address] [place] [address] MCV (RBC) [Entitic vol] 92.3 fL Normal 77.0-99.0 [facility] Comment on above: Performed By: #### L [id number] ####[employer] Operator: SHAYY MARROQUIN ([id number])[facility])[address] [place] [address] Monocytes (Bld) [#/Vol] 0.7 10*3/uL Normal 0.0-0.9 [facility] Comment on above: Performed By: #### L [id number] ####[employer] Operator: SHAYY MARROQUIN ([phone])[facility])[address] [place] [address] Monocytes/100 WBC (Bld) 6.9 % Normal 5.0-13.0 [facility] Comment on above: Performed By: #### L [id number] ####[employer] Operator: SHAYY MARROQUIN ([id number])[facility])[address] [place] [address] NEUTROPHILS ABSOLUTE 6.3 10*3/uL Normal 1.8-7.5 [facility] Comment on above: Performed By: #### L [id number] ####[employer] Operator: SHAYY MARROQUIN ([id number])[facility])[address] [place] [address] Neutrophils/100 WBC (Bld) 64.7 % Normal 38.0-82.0 [facility] Comment on above: Performed By: #### L [id number] ####[employer] Operator: SHAYY MARROQUIN ([phone])[facility])[address] [place] [address] NRBC 0.0 /100 WBCs Normal 0.0-2.0 [facility] Comment on above: Performed By: #### L [id number] ####[employer] Operator: SHAYY MARROQUIN ([id number])[facility])[address] [place] [address] Platelet mean volume (Bld) [Entitic vol] 9.3 fL Normal 9.0-12.7 [facility] Comment on above: Performed By: #### L [id number] ####[employer] Operator: SHAYY MARROQUIN ([phone])[facility] ([facility])[address] [place] [address] Platelets (Bld) [#/Vol] 253 10*3/uL Normal 140-440 [facility] Comment on above: Performed By: #### L [id number] ####[employer] Operator: SHAYY MARROQUIN ([id number])[facility] ([facility])[address] [place] [address] RBC (Bld) [#/Vol] 5.05 10*6/uL Normal 3.80-5.20 [facility] Comment on above: Performed By: #### L [id number] ####[employer] Operator: SHAYY MARROQUIN ([id number])[facility] ([facility])[address] [place] [address] WBC (Bld) [#/Vol] 9.7 10*3/uL Normal 3.6-10.7 [facility] Comment on above: Performed By: #### L [id number] ####[employer] Operator: SHAYY MARROQUIN ([phone])[facility])[address] [place] [address] COMPREHENSIVE METABOLIC PANE Frank 04-18-2025 Albumin [Mass/Vol] 3.5 g/dL Normal 3.4-4.8 [facility] Comment on above: Performed By: #### L [id number], [id number] ####[employer] Operator: SHAYY MARROQUIN ([phone])[facility] ([facility])[address] [place] [address] ALP [Catalytic activity/Vol] 180 U/L High 40-150 [facility] Comment on above: Performed By: #### L [id number], [id number] ####[employer] Operator: SHAYY MARROQUIN ([id number])[facility])[address] [place] [address] ALT [Catalytic activity/Vol] 10 U/L Normal <30 [facility] Comment on above: Performed By: #### L [id number], [id number] ####[employer] Operator: SHAYY MARROQUIN ([phone])[facility])[address] [place] [address] Anion gap [Moles/Vol] 14 mmol/L High 3-13 [facility] Comment on above: Performed By: #### L [id number], [id number] ####[employer] Operator: SHAYY MARROQUIN ([id number])[facility] ([facility])[address] [place] [address] AST [Catalytic activity/Vol] 22 U/L Normal <34 [facility] Comment on above: Performed By: #### L [id number], [id number] ####[employer] Operator: SHAYY MARROQUIN ([id number])[facility])[address] [place] [address] Bilirubin [Mass/Vol] 0.7 mg/dL Normal <1.2 [facility] Comment on above: Performed By: #### L [id number], [id number] ####[employer] Operator: SHAYY MARROQUIN ([phone])[facility])[address] [place] [address] Calcium [Mass/Vol] 9.6 mg/dL Normal 8.8-10.0 [facility] Comment on above: Performed By: #### L [id number], [id number] ####[employer] Operator: SHAYY MARROQUIN ([phone])[facility])[address] [place] [address] [place] Chloride [Moles/Vol] 102 mmol/L Normal 98-107 [facility] Comment on above: Performed By: #### L [id number], [id number] ####[employer] Operator: SHAYY MARROQUIN ([phone])[facility])[address] [place] [address] CO2 [Moles/Vol] 23 mmol/L Normal 23-31 [facility] Comment on above: Performed By: #### L [id number], [id number] ####[employer] Operator: SHAYY [id number])[facility])[address] [place] [address] Creatinine [Mass/Vol] 1.36 mg/dL High 0.57-1.11 [facility] Comment on above: Performed By: #### L [id number], [id number] ####[employer] Operator: SHAYY MARROQUIN ([phone])[facility] ([facility])[address] [place] [address] [place] GLOMERULAR FILTRATION RATE ML/MIN/1.73 SQ M.PREDICTED 39.0 mL/min/1.73m*2 Low >60.0 [facility] Comment on above: Result Comment: Calc ulation based on the Chronic Kidney Disease Epidemiology Collaboration (CKD-EPI) equation refit without adjustment for race Performed By: #### L [id number], [id number] ####[employer] Operator: SHAYY MARROQUIN ([phone])[facility] ([facility])[address] [place] [address] Glucose [Mass/Vol] 108 mg/dL Normal 82-115 [facility] Comment on above: Performed By: #### L [id number], [id number] ####[employer] Operator: SHAYY MARROQUIN ([phone])[facility])[address] [place] [address] [place] Potassium [Moles/Vol] 3.6 mmol/L Normal 3.5-5.1 [facility] Comment on above: Result Comment: [facility] potassium values may be up to 0.5 mmol/L lower than serum values. Performed By: #### L [id number], [id number] ####[employer] Operator: SHAYY MARROQUIN ([phone])[facility] ([facility])[address] [place] [address] [place] Protein [Mass/Vol] 6.9 g/dL Normal 6.4-8.3 [facility] Comment on above: Performed By: #### L [id number], [id number] ####[employer] Operator: SHAYY MARROQUIN ([id number])[facility])[address] [place] [address] [place] Sodium [Moles/Vol] 139 mmol/L Normal 136-145 [facility] Comment on above: Performed By: #### L [id number], [id number] ####[employer] Operator: SHAYY SHARONJody ([id number])[facility] ([facility])[address] [place] [address] Urea nitrogen [Mass/Vol] 20 mg/dL Normal 9-23 [facility] Comment on above: Performed By: #### L [id number], [id number] ####[employer] Operator: SHAYY MARROQUIN ([phone])[facility] ([facility])[address] [place] [address] CT HEAD NECK ANGIO W AND WO IV CONTRASTon 04-18-2025 CT HEAD NECK ANGIO W AND WO IV CONTRAST Normal [facility] CT HEAD WO IV CONTRASTon CT HEAD WO IV CONTRAST Normal [facility] CT Head WO contraston 2024 [facility] 1940 [id number] Exam Date/Time: 04/18/2025 14:15 Procedure: CT HEAD WO IV CONTRAST Ordering Provider: BORREGO SAMANTHA Reason For Exam: Neuro deficit, acute, stroke suspected Examination: CT head Technique: Axial CT images of the head were obtained without IV contrast at 5 mm intervals. Dose reduction was employed with automatic exposure control. Coronal and sagittal reconstructions were also provided Indication: Concern for left retinal artery occlusion Findings: Moderate diffuse parenchymal volume loss is noted, evidence by prominence of the ventricles and sulci. Fairly extensive decreased attenuation is noted within the periventricular white matter, likely secondary to chronic small vessel ischemia. The salazar-white differentiation is grossly intact. There are no extra-axial fluid collections or acute intracranial hemorrhage appreciated. There is no midline shift identified. Question small remote infarct, posterior left cerebellum. Mild mucoperiosteal thickening of the ethmoid air cells. Otherwise, the paranasal sinuses are grossly clear. The mastoid air cells are grossly unremarkable.. The bones are grossly unremarkable. Atherosclerotic calcification of the carotid siphons and distal vertebral arteries is noted. [facility] Jose Alberto Romero MD - 04/18/2025 Patient Name: DIANA KOHLI : 1940 [facility]#: [id number] Exam Date/Time: 04/18/2025 14:15 Procedure: CT HEAD WO IV CONTRAST Ordering Provider: BORREGO SAMANTHA Reason For Exam: Neuro deficit, acute, stroke suspected Examination: CT head Technique: Axial CT images of the head were obtained without IV contrast at 5 mm intervals. Dose reduction was employed with automatic exposure control. Coronal and sagittal reconstructions were also provided Indication: Concern for left retinal artery occlusion Findings: Moderate diffuse parenchymal volume loss is noted, evidence by prominence of the ventricles and sulci. Fairly extensive decreased attenuation is noted within the periventricular white matter, likely secondary to chronic small vessel ischemia. The salazar-white differentiation is grossly intact. There are no extra-axial fluid collections or acute intracranial hemorrhage appreciated. There is no midline shift identified. Question small remote infarct, posterior left cerebellum. Mild mucoperiosteal thickening of the ethmoid air cells. Otherwise, the paranasal sinuses are grossly clear. The mastoid air cells are grossly unremarkable.. The bones are grossly unremarkable. Atherosclerotic calcification of the carotid siphons and distal vertebral arteries is noted. IMPRESSION: Impression: Likely chronic small vessel ischemic changes in the periventricular white matter. No acute intracranial abnormality. Examination: CT angiogram of head Indication: Concern for left retinal artery occlusion Technique: Thin section axial CTA images of the intracranial circulation were obtained at 0.5 mm intervals following the administration of intravenous contrast (75 mL Isovue 370). Dose reduction was employed with automatic exposure control. Coronal and sagittal reconstructed images were also provided for review. Images were reformatted on a 3-D workstation concurrently by myself with volume rendering. Findings: Calcification of the bilateral carotid siphons. There is significant calcification, atherosclerosis and narrowing of the cranial segment of the left vertebral artery with high-grade stenosis measuring at least 75-80 percent. The anterior and posterior circulation are grossly intact. No abnormal branch cutoff is demonstrated. There is no sizable intracranial aneurysm. There is filling of the ophthalmic artery and some of its branch vessels vessels within the bilateral orbits, however assessment of the retinal artery is limited on this study. There is subtle vascular enhancement about the bilateral optic nerves, however. The bilateral globes are unremarkable on this study. The dural venous sinuses are grossly patent. Impression: Ophthalmic arteries and some of its branch vessels appear patent. 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 Grossly patent intracranial vasculature without large vessel occlusion. Dense calcification of the carotid siphons. Examination: CT angiogram neck Indication: Concern for left retinal artery occlusion Technique: Axial CT angiographic images of the neck were obtained with IV contrast (75 mL Isovue 370) at 0.5 mm intervals from level the nasopharynx to the thoracic inlet. Dose reduction was employed with automatic exposure control. Coronal and sagittal reconstructed images were also provided for review. Images were reformatted on a separate 3-D workstation by myself and reviewed with volume rendering. NASCET criteria was used to assess stenoses noted on this exam (if present). Findings: The bilateral common carotid arteries are grossly patent. There is calcification of the bilateral carotid bifurcations. Approximate 40 percent narrowing of the right internal carotid artery origin, secondary to calcified plaque. Approximate 60 percent short segment stenosis of the proximal left internal carotid artery as noted on coronal image 111 and axial image 433, series 3. The bilateral external carotid arteries are patent. No acute vascular dissection is noted. The dominant right cervical vertebral artery. The left vertebral artery is slightly small in caliber throughout. There does appear to be significant narrowing of the proximal left vertebral artery at its origin and slightly distal to this measuring at least 50 percent or slightly greater. The bilateral cervical vertebral arteries are otherwise grossly patent. There is significant calcification and soft plaque of the visualized portion of the aortic arch. Mild to moderate degenerative changes of the cervical spine with mild reversal of cervical lordosis. At least moderate degenerative changes at the C1-C2 articulation. Impression: Calcification of the bilateral carotid bifurcations with associated stenosi (more content not included)... [employer] CTA Head vessels and Neck ve ssels WO and W contrast Radha 04-18-2025 Patient Name: DIANA KOHLI : 1940 Exam Date/Time: 04/18/2025 14:15 Procedure: CT HEAD NECK ANGIO W AND WO IV CONTRAST Ordering Provider: BORREGO SAMANTHA Reason For Exam: Concern for left retinal artery occlusion Examination: CT head Technique: Axial CT images of the head were obtained without IV contrast at 5 mm intervals. Dose reduction was employed with automatic exposure control. Coronal and sagittal reconstructions were also provided Indication: Concern for left retinal artery occlusion Findings: Moderate diffuse parenchymal volume loss is noted, evidence by prominence of the ventricles and sulci. Fairly extensive decreased attenuation is noted within the periventricular white matter, likely secondary to chronic small vessel ischemia. The salazar-white differentiation is grossly intact. There are no extra-axial fluid collections or acute intracranial hemorrhage appreciated. There is no midline shift identified. Question small remote infarct, posterior left cerebellum. Mild mucoperiosteal thickening of the ethmoid air cells. Otherwise, the paranasal sinuses are grossly clear. The mastoid air cells are grossly unremarkable.. The bones are grossly unremarkable. Atherosclerotic calcification of the carotid siphons and distal vertebral arteries is noted. [facility] Jose Alberto Romero MD - 04/18/2025 Patient Name: DIANA KOHLI : 1940 [facility]#: [id number] Exam Date/Time: 04/18/2025 14:15 Procedure: CT HEAD NECK ANGIO W AND WO IV CONTRAST Ordering Provider: BORREGO SAMANTHA Reason For Exam: Concern for left retinal artery occlusion Examination: CT head Technique: Axial CT images of the head were obtained without IV contrast at 5 mm intervals. Dose reduction was employed with automatic exposure control. Coronal and sagittal reconstructions were also provided Indication: Concern for left retinal artery occlusion Findings: Moderate diffuse parenchymal volume loss is noted, evidence by prominence of the ventricles and sulci. Fairly extensive decreased attenuation is noted within the periventricular white matter, likely secondary to chronic small vessel ischemia. The salazar-white differentiation is grossly intact. There are no extra-axial fluid collections or acute intracranial hemorrhage appreciated. There is no midline shift identified. Question small remote infarct, posterior left cerebellum. Mild mucoperiosteal thickening of the ethmoid air cells. Otherwise, the paranasal sinuses are grossly clear. The mastoid air cells are grossly unremarkable.. The bones are grossly unremarkable. Atherosclerotic calcification of the carotid siphons and distal vertebral arteries is noted. IMPRESSION: Impression: Likely chronic small vessel ischemic changes in the periventricular white matter. No acute intracranial abnormality. Examination: CT angiogram of head Indication: Concern for left retinal artery occlusion Technique: Thin section axial CTA images of the intracranial circulation were obtained at 0.5 mm intervals following the administration of intravenous contrast (75 mL Isovue 370). Dose reduction was employed with automatic exposure control. Coronal and sagittal reconstructed images were also provided for review. Images were reformatted on a 3-D workstation concurrently by myself with volume rendering. Findings: Calcification of the bilateral carotid siphons. There is significant calcification, atherosclerosis and narrowing of the cranial segment of the left vertebral artery with high-grade stenosis measuring at least 75-80 percent. The anterior and posterior circulation are grossly intact. No abnormal branch cutoff is demonstrated. There is no sizable intracranial aneurysm. There is filling of the ophthalmic artery and some of its branch vessels vessels within the bilateral orbits, however assessment of the retinal artery is limited on this study. There is subtle vascular enhancement about the bilateral optic nerves, however. The bilateral globes are unremarkable on this study. The dural venous sinuses are grossly patent. Impression: Ophthalmic arteries and some of its branch vessels appear patent. 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 Grossly patent intracranial vasculature without large vessel occlusion. Dense calcification of the carotid siphons. Examination: CT angiogram neck Indication: Concern for left retinal artery occlusion Technique: Axial CT angiographic images of the neck were obtained with IV contrast (75 mL Isovue 370) at 0.5 mm intervals from level the nasopharynx to the thoracic inlet. Dose reduction was employed with automatic exposure control. Coronal and sagittal reconstructed images were also provided for review. Images were reformatted on a separate 3-D workstation by myself and reviewed with volume rendering. NASCET criteria was used to assess stenoses noted on this exam (if present). Findings: The bilateral common carotid arteries are grossly patent. There is calcification of the bilateral carotid bifurcations. Approximate 40 percent narrowing of the right internal carotid artery origin, secondary to calcified plaque. Approximate 60 percent short segment stenosis of the proximal left internal carotid artery as noted on coronal image 111 and axial image 433, series 3. The bilateral external carotid arteries are patent. No acute vascular dissection is noted. The dominant right cervical vertebral artery. The left vertebral artery is slightly small in caliber throughout. There does appear to be significant narrowing of the proximal left vertebral artery at its origin and slightly distal to this measuring at least 50 percent or slightly greater. The bilateral cervical vertebral arteries are otherwise grossly patent. There is significant calcification and soft plaque of the visualized portion of the aortic arch. Mild to moderate degenerative changes of the cervical spine with mild reversal of cervical lordosis. At least moderate degenerative changes at the C1-C2 articulation. Impression: Calcification of the bilateral carotid bifurcations wit (more content not included)... [facility] Comprehensive metabolic 1998 panelon 04-18-2025 Albumin [Mass/Vol] 3.5 g/dL 3.4 - 4.8 g/dL [facility] ALP [Catalytic activity/Vol] 180 U/L High 40 - 150 U/L [facility] ALT [Catalytic activity/Vol] 10 U/L NINF - 30 U/L [facility] Anion gap [Moles/Vol] 14 mmol/L High 3 - 13 mmol/L [facility] AST [Catalytic activity/Vol] 22 U/L NINF - 34 U/L [facility] Bilirubin [Mass/Vol] 0.7 mg/dL NINF - 1.2 mg/dL [facility] Calcium [Mass/Vol] 9.6 mg/dL 8.8 - 10. 0 mg/dL [facility] Chloride [Moles/Vol] 102 mmol/L 98 - 10 7 mmol/L [facility] CO2 [Moles/Vol] 23 mmol/L 23 - 31 mmol/L [facility] Creatinine [Mass/Vol] 1.36 mg/dL High 0.57 - 1.11 mg/dL [facility] GFR/1.73 sq M.predicted (S/P/Bld) [Vol rate/Area] 39 mL/min Low - PINF [facility] Comment on above: Calculation based on the Chronic Kidney Disease Epidemiology Collaboration (CKD-EPI) equation refit without adjustment for race Glucose [Mass/Vol] 108 mg/dL 82 - 115 mg/dL [facility] Interpretation and review of laboratory results Abnormal [facility] Potassium [Moles/Vol] 3.6 mmol/L 3.5 - 5.1 mmol/L [facility] Comment on above: Plasma potassium clovis ues may be up to 0.5 mmol/L lower than serum values. Protein [Mass/Vol] 6.9 g/dL 6.4 - 8.3 g/dL [facility] Sodium [Moles/Vol] 139 mmol/L 136 - 145 mmol/L [facility] Urea nitrogen [Mass/Vol] 20 mg/dL 9 - 23 mg/dL [facility] ECG 12-LEADon 04-18-2025 ECG 12-LEAD IMPRESSION: Sinus rhythm Anteroseptal infarct, age indeterminate Prolonged QT interval Comparable to prior EKG Electronically Signed On 04-18-2025 13:06:17 EDT by Rafat Farley Normal [facility] ED Provider Noteon ED Provider Note Normal [facility] HIGH SENSITIVITY TROPONIN, S ERIAL BASELINEon 04-18-2025 TROPONIN HS SERIAL BASELINE 7 ng/L Normal <=14 [facility] Comment on above: Result Comment: In i ndividuals presenting with symptoms > 2h, a baseline troponin <= 5 ng/L suggests acutecardiac injury is unlikely and further serial testing is generally not indicated. Performed By: #### L [id number] ####[employer] Operator: SHAYY MARROQUIN ([id number])[facility] [id number] HIGH SENSITIVITY TROPONIN, S ERIAL, SECOND TESTon 04-18-2025 2H TROPONIN HS (SERIAL 2ND TROPONIN) 6 ng/L Normal <=14 [facility] Comment on above: Result Comment: Risi ng or falling troponin delta below 2 ng/L as compared to baseline value suggests thatacute cardiac injury is unlikely. Performed By: #### L [id number] ####[employer] Operator: SHAYY MARROQUIN ([id number])[facility] [id number] Laboratory - Coagulationon 0 04-18-2025 aPTT Coag (PPP) [Time] 28.2 s 20.0 - 30.5 s [facility] INR Coag (PPP) [Relative time] 1 {INR} 0.9 - 1.1 [facility] Comment on above: Recommended Anticoag ulant Therapy: SEE BELOW ----- INR of 2.0 - 3.0 : - Prophylaxis of Venous Thrombosis (high-risk surgery) - Treatment of Venous Thrombosis - Treatment of Pulmonary Embolism (Includes tissue heart valves, Acute Myocardial Infarction to prevent systemic embolism, Valvular Heart Disease, and Atrial Fibrillation) ----- INR of 2.5 - 3.5 : - Mechanical Prosthetic Valves (high risk) - If oral anticoagulant therapy is used to prevent Myocardial Infarction PT Coag (Bld) [Time] 10.6 s 9.0 - 1 2.0 s [facility] No Panel Informationon 04-18 2h Troponin HS (Serial 2nd Troponin) 6 ng/L NINF - 14 ng/L [facility] Comment on above: Rising or falling tr oponin delta below 2 ng/L as compared to baseline value suggests that acute cardiac injury is unlikely. Interpretation and review of laboratory results Normal [facility] Impression: Likely chronic small vessel ischemic changes in the periventricular white matter. No acute intracranial abnormality. Examination: CT angiogram of head Indication: Concern for left retinal artery occlusion Technique: Thin section axial CTA images of the intracranial circulation were obtained at 0.5 mm intervals following the administration of intravenous contrast (75 mL Isovue 370). Dose reduction was employed with automatic exposure control. Coronal and sagittal reconstructed images were also provided for review. Images were reformatted on a 3-D workstation concurrently by myself with volume rendering. Findings: Calcification of the bilateral carotid siphons. There is significant calcification, atherosclerosis and narrowing of the cranial segment of the left vertebral artery with high-grade stenosis measuring at least 75-80 percent. The anterior and posterior circulation are grossly intact. No abnormal branch cutoff is demonstrated. There is no sizable intracranial aneurysm. There is filling of the ophthalmic artery and some of its branch vessels vessels within the bilateral orbits, however assessment of the retinal artery is limited on this study. There is subtle vascular enhancement about the bilateral optic nerves, however. The bilateral globes are unremarkable on this study. The dural venous sinuses are grossly patent. Impression: Ophthalmic arteries and some of its branch vessels appear patent. 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 Grossly patent intracranial vasculature without large vessel occlusion. Dense calcification of the carotid siphons. Examination: CT angiogram neck Indication: Concern for left retinal artery occlusion Technique: Axial CT angiographic images of the neck were obtained with IV contrast (75 mL Isovue 370) at 0.5 mm intervals from level the nasopharynx to the thoracic inlet. Dose reduction was employed with automatic exposure control. Coronal and sagittal reconstructed images were also provided for review. Images were reformatted on a separate 3-D workstation by myself and reviewed with volume rendering. NASCET criteria was used to assess stenoses noted on this exam (if present). Findings: The bilateral common carotid arteries are grossly patent. There is calcification of the bilateral carotid bifurcations. Approximate 40 percent narrowing of the right internal carotid artery origin, secondary to calcified plaque. Approximate 60 percent short segment stenosis of the proximal left internal carotid artery as noted on coronal image 111 and axial image 433, series 3. The bilateral external carotid arteries are patent. No acute vascular dissection is noted. The dominant right cervical vertebral artery. The left vertebral artery is slightly small in caliber throughout. There does appear to be significant narrowing of the proximal left vertebral artery at its origin and slightly distal to this measuring at least 50 percent or slightly greater. The bilateral cervical vertebral arteries are otherwise grossly patent. There is significant calcification and soft plaque of the visualized portion of the aortic arch. Mild to moderate degenerative changes of the cervical spine with mild reversal of cervical lordosis. At least moderate degenerative changes at the C1-C2 articulation. Impression: Calcification of the bilateral carotid bifurcations with associated stenosis. Slightly distal to the origin of the left internal carotid artery there is approximate 60 percent stenosis. Approximate 40 percent short segment narrowing of the right internal carotid artery origin. Narrowing of the proximal left vertebral artery. CTA of the head is detailed above in a separate report. Report Dictated on Electronically Signed By: Jose Alberto Romero MD Electronically Signed Date/Time: 04/18/2025 2:50 PM EDT [facility] Radiology Study observation (narrative) [facility] Interpretation and review of laboratory results Normal [facility] Troponin HS Serial Baseline 7 ng/L NINF - 14 ng/L [facility] Comment on above: In individuals prese nting with symptoms > 2h, a baseline troponin <= 5 ng/L suggests acute cardiac injury is unlikely and further serial testing is generally not indicated. [facility] Interpretation and review of laboratory results Normal [facility] [employer] Heart Rate 69 bpm [facility] [employer] P [place] 74 degrees [facility] [employer] [place] Interval 168 ms [facility] QRS [place] 46 degrees [facility] QRSD Interval 98 ms [facility] QT Interval 478 ms [facility] QTC Interval 511 ms [facility] T Wave [place] 75 degrees [facility] Sinus rhythm Anteroseptal infarct, age indeterminate Prolonged QT interval Comparable to prior EKG Electronically Signed On 04-18-2025 13:06:17 EDT by Rafat Farley CV Rafat Harvey MD - 04/18/2025 IMPRESSION: Sinus rhythm Anteroseptal infarct, age indeterminate Prolonged QT interval Comparable to prior EKG Electronically Signed On 04-18-2025 13:06:17 EDT by Rafat Farley [facility] Panel InformationOrdered By: Jose Alberto Romero on 04-18-2025 [facility] [employer] Work Phone: PROTIME AND APTTon aPTT Coag (Bld) [Time] 28.2 s Normal 20.0-30.5 [facility] Comment on above: Performed By: #### L [id number] ####[employer] Operator: SHAYY MARROQUIN ([id number])[facility] [employer] [facility])[address] [place] [address] INR Coag (PPP) [Relative time] 1.0 {INR} Normal 0.9-1.1 [facility] Comment on above: Result Comment: Javed mmended Anticoagulant Therapy: SEE BELOW----- INR of 2.0 - 3.0 : - Prophylaxis of Venous Thrombosis (high-risk surgery) - Treatment of Venous Thrombosis - Treatment of Pulmonary Embolism (Includes tissue heart valves, Acute Myocardial Infarction to prevent systemic embolism, Valvular Heart Disease, and Atrial Fibrillation)----- INR of 2.5 - 3.5 : - Mechanical Prosthetic Valves (high risk) - If oral anticoagulant therapy is used to prevent Myocardial Infarction Performed By: #### L [id number] ####[employer] Operator: SHAYY MARROQUIN ([id number])[facility] ([facility])[address] [place] [address] PT Coag (PPP) [Time] 10.6 s Normal 9.0-12.0 [facility] Comment on above: Performed By: #### L [id number] ####[employer] Operator: SHAYY MARROQUIN ([id number])[facility] ([facility])[address] [place] [address] Progress Noteon 04-18-2025 Progress Note Normal [facility] C-REACTIVE PROTEINon 025 CRP [Mass/Vol] 8.4 mg/L High <5.0 [facility] Comment on above: Performed By: #### L [id number] ####[employer] Operator: SHAYY MARROQUIN ([id number])[facility] ([facility])[address] [place] [address] CRP [Mass/Vol]on 04-17-2025 Interpretation and review of laboratory results Abnormal [facility] CT HEAD WO IV CONTRASTon CT HEAD WO IV CONTRAST Normal [facility] CT Head WO contraston 2024 1. Atrophy and evide nce of small-vessel ischemic disease. This is not unusual for patient age. 2. No intracranial hemorrhage. 3. No CT evidence of an acute intracranial process. Report Dictated on Electronically Signed By: Ganesh Joe MD Electronically Signed Date/Time: 04/17/2025 11:36 AM EDT [facility] 1940 [id number] Exam Date/Time: 04/17/2025 11:29 Procedure: CT HEAD WO IV CONTRAST Ordering Provider: DAY MARY Reason For Exam: Vision loss, monocular CLINICAL INFORMATION: Acute left-sided vision loss. 3 mm axial cuts through the head are obtained without IV contrast. Dose reduction was employed with automated exposure control. There are no comparison studies. FINDINGS: The ventricles are within normal limits in respect to their size and configuration. There is no evidence of mass or mass-effect. There are no abnormal intra- or extra-axial fluid collections. No hemorrhage is identified. There is moderate cortical atrophy. Patchy/confluent low-attenuation is noted within the periventricular, deep, and subcortical white matter. 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 There is no CT evidence of an acute infarct. Bone windows demonstrate no evidence of fracture and the visualized paranasal sinuses and mastoid air cells are clear. [facility] Ganesh Joe MD - 04/17/2025 Patient Name: DIANA KOHLI : 1940 Exam Date/Time: 04/17/2025 11:29 Procedure: CT HEAD WO IV CONTRAST Ordering Provider: DAY MARY Reason For Exam: Vision loss, monocular CLINICAL INFORMATION: Acute left-sided vision loss. 3 mm axial cuts through the head are obtained without IV contrast. Dose reduction was employed with automated exposure control. There are no comparison studies. FINDINGS: The ventricles are within normal limits in respect to their size and configuration. There is no evidence of mass or mass-effect. There are no abnormal intra- or extra-axial fluid collections. No hemorrhage is identified. There is moderate cortical atrophy. Patchy/confluent low-attenuation is noted within the periventricular, deep, and subcortical white matter. 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 There is no CT evidence of an acute infarct. Bone windows demonstrate no evidence of fracture and the visualized paranasal sinuses and mastoid air cells are clear. IMPRESSION: 1. Atrophy and evidence of small-vessel ischemic disease. This is not unusual for patient age. 2. No intracranial hemorrhage. 3. No CT evidence of an acute intracranial process. Report Dictated on Electronically Signed By: Ganesh Joe MD Electronically Signed Date/Time: 04/17/2025 11:36 AM EDT [facility] Radiology Study observation (narrative) [facility] CT Head WO contrastOrdered B y: Ganesh Joe on 04-17-2025 [facility] Work Phone: ED Provider Noteon ED Provider Note Normal [facility] ESR (Bld) [Velocity]Ordered By: Yanira Barton on 04-17-2025 Interpretation and review of laboratory results Normal [facility] Laboratory - Chemistry and C hemistry - challengeon 04-17-2025 CRP [Mass/Vol] 8.4 mg/L High NINF - 5.0 mg/L [facility] - Hematology and Cell countsOrdered By: Yanira Barton on 04-17-2025 ESR (Bld) [Velocity] 16 mm/h [facility] SEDIMENTATION RATE, AUTOMATE Don 04-17-2025 SEDIMENTATION RATE, ERYTHROCYTE 16 mm/hr Normal 0-20 [facility] Comment on above: Performed By: #### L [id number] ####[employer] P[employer] Machine Operator: SHAYY MARROQUIN ([phone])[facility] ([facility])[address] [place] [address] GGTPon 03-20-2025 GGTP 14 U/L Normal 5-36 [facility] Comment on above: Performed By: #### G GTP #### [facility] [address] [place], [place] [phone] Liver Profileon 03-20-2025 Albumin [Mass/Vol] 3.9 g/dL Normal 3.5-5.2 [facility] Comment on above: Performed By: #### L IVER #### [facility] [address] [place] [address] ALP [Catalytic activity/Vol] 184 U/L High 35-129 [facility] Comment on above: Performed By: #### L IVER #### [facility] [address] [place] [address] ALT [Catalytic activity/Vol] 11 U/L Normal <=41 [facility] Comment on above: Performed By: #### L IVER #### [facility] [address] [place] [address] AST [Catalytic activity/Vol] 15 U/L Normal <=40 [facility] Comment on above: Performed By: #### L IVER #### [facility] [address] [place], [place] [phone] Bili, Direct <0.2 Normal 0.0-0.3 [facility] Comment on above: Performed By: #### L IVER #### [facility] [address] [place], [place] [phone] Bili, Total 0.5 mg/dL Normal <=1.2 [facility] Comment on above: Performed By: #### L IVER #### [facility] [address] [place], [place] [phone] Prot Total 6.4 g/dL Normal 6.4-8.3 [facility] Comment on above: Performed By: #### L IVER #### [facility] [address] [place] [address] Comprehensive Metabolic Pane [facility] 03-17-20252020 CKD-EPI Estimated Glomerular Filtration Rate (eGFR) is calculated using the 2020 CKD-EPI creatinine equation. This equation uses serum creatinine, sex and age for calculating the eGFR. Normal [facility] Comment on above: Performed By: #### L IPID, CMP #### [facility] [address] [place], [place] [phone] Albumin [Mass/Vol] 4.0 g/dL Normal 3.5-5.2 [facility] Comment on above: Performed By: #### L IPID, CMP #### [facility] [address] [place], [place] [phone] ALP [Catalytic activity/Vol] 190 U/L High 35-129 [facility] Comment on above: Performed By: #### L IPID, CMP #### [facility] [address] [place], [place] [phone] ALT [Catalytic activity/Vol] 11 U/L Normal <=41 [facility] Comment on above: Performed By: #### L IPID, CMP #### [facility] [address] [place], [place] [phone] Anion gap [Moles/Vol] 12 mmol/L Normal 8-15 [facility] Comment on above: Performed By: #### L IPID, CMP #### [facility] [address] [place], [place] [phone] AST [Catalytic activity/Vol] 17 U/L Normal <=40 [facility] Comment on above: Performed By: #### L IPID, CMP #### [facility] [address] [place], [place] [phone] Bili, Total 0.5 mg/dL Normal <=1.2 [facility] Comment on above: Performed By: #### L IPID, CMP #### [facility] [address] [place], [place] [phone] Calcium [Mass/Vol] 9.4 mg/dL Normal 8.6-10.6 [facility] Comment on above: Performed By: #### L IPID, CMP #### [facility] [address] [place] [address] Chloride [Moles/Vol] 100 mmol/L Normal 98-107 [facility] Comment on above: Performed By: #### L IPID, CMP #### [facility] [address] [place] [address]87 CO2 [Moles/Vol] 28 mmol/L Normal 22-29 [facility] Comment on above: Performed By: #### L IPID, CMP #### [facility] [address] [place] [address] Creatinine [Mass/Vol] 1.3 mg/dL High 0.5-1.2 [facility] Comment on above: Performed By: #### L IPID, CMP #### [facility] [address] [place] [address]243 eGFR 43 mL/min/1.73sqm Low >=60 [facility] Comment on above: Performed By: #### L IPID, CMP #### [facility] [address] [place] [address] Glucose [Mass/Vol] 117 mg/dL High 74-109 [facility] Comment on above: Performed By: #### L IPID, CMP #### [facility] [address] [place] [address] Potassium [Moles/Vol] 4.0 mmol/L Normal 3.4-5.1 [facility] Comment on above: Performed By: #### L IPID, CMP #### [facility] [address] [place] [address] Prot Total 6.4 g/dL Normal 6.4-8.3 [facility] Comment on above: Performed By: #### L IPID, CMP #### [facility] [address] [place] [address] Sodium [Moles/Vol] 140 mmol/L Normal 136-145 [facility] Comment on above: Performed By: #### L IPID, CMP #### [facility] [address] [place] [address] Urea nitrogen [Mass/Vol] 16 mg/dL Normal 6-23 [facility] Comment on above: Performed By: #### L IPID, CMP #### [facility] [address] [place] [address] Lipid Profileon 03-17-2025 Cholesterol [Mass/Vol] 214 mg/dL High <=200 [facility] Comment on above: Performed By: #### L IPID, CMP #### [facility] [address] [place] [address] Cholesterol in HDL [Mass/Vol] 57 mg/dL Normal >=40 [facility] Comment on above: Performed By: #### L IPID, CMP #### [facility] [address] [place] [address] Cholesterol in LDL [Mass/Vol] 136 mg/dL High <=99 [facility] Comment on above: Performed By: #### L IPID, CMP #### [facility] [address] [place] [address] Triglyceride [Mass/Vol] 105 mg/dL Normal <=149 [facility] Comment on above: Performed By: #### L IPID, CMP #### [facility] [address] [place] [address]758 VLDL Calc 21 mg/dL Normal 14-48 [facility] Comment on above: Performed By: #### L IPID, CMP #### [address] [address] PFT Completeon 01-02-2025 PFT Complete Pulmonary function t est performed on January 02, 2025 height 62 weight 185 age 84 FEV1 1.5 to liters 90% predicted FVC 2.10 L 92% predicted FEV1 over FEC ratio at 72% lower limits at 64. Total lung capacity at 5.05 106% predicted residual volume at 2.54 L 109% predicted residual volume to total lung capacity of 50% DLCO 11.4 62% interpretation FEV1 over FVC does not fitting obstructive process. No evidence of restrictive lung disease DLCO classified at mild impairment further clinical correlation with patient's symptoms needed Report Dictated on Authenticated by: Martha Amaya On: 01/02/2025 11:26 Read by: MARTHA AMAYA MD, Date: 01/02/2025 11:26 [facility] CBC panel Auto (Bld)on 01-05 Erythrocyte distribution width (RBC) [Ratio] 13.1 % 11.5 - 15.0 % [facility] Hematocrit (Bld) [Volume fraction] 41.7 % 35.0 - 47.0 % [facility] Hemoglobin (Bld) [Mass/Vol] 13.5 g/dL 11.7 - 16.0 g/dL [facility] Interpretation and review of laboratory results Normal [facility] MCH (RBC) [Entitic mass] 30.8 pg 26.0 - 34.0 pg [facility] MCHC (RBC) [Mass/Vol] 32.4 % 30.5 - 36.0 % [facility] MCV (RBC) [Entitic vol] 95.0 fL 77.0 - 99.0 fL [facility] Platelet mean volume (Bld) [Entitic vol] 9.3 fL 9.0 - 12.7 fL [facility] Platelets (Bld) [#/Vol] 371 10*3/uL 140 - 440 10*3/uL [facility] RBC (Bld) [#/Vol] 4.39 10*6/uL 3.80 - 5.20 10*6/uL [facility] WBC (Bld) [#/Vol] 9.8 10*3/uL 3.6 - 10.7 10*3/uL [facility] Comprehensive metabolic 1998 panelon 01-06-2024 Albumin [Mass/Vol] 2.8 g/dL Low 3.5 - 5.0 g/dL [facility] ALP [Catalytic activity/Vol] 91 U/L 38 - 126 U/L [facility] ALT [Catalytic activity/Vol] 40 U/L High 0 - 34 U/L [facility] Anion gap [Moles/Vol] 6 mmol/L 3 - 13 mmol/L [facility] AST [Catalytic activity/Vol] 28 U/L 15 - 46 U/L [facility] Bilirubin [Mass/Vol] 0.4 mg/dL 0.2 - 1 .3 mg/dL [facility] Calcium [Mass/Vol] 8.3 mg/dL Low 8.4 - 10. 4 mg/dL [facility] Chloride [Moles/Vol] 106 mmol/L 98 - 10 7 mmol/L [facility] CO2 [Moles/Vol] 26 mmol/L 22 - 30 mmol/L [facility] Creatinine [Mass/Vol] 1.08 mg/dL High 0.52 - 1.04 mg/dL [facility] GFR/1.73 sq M.predicted MDRD (S/P/Bld) [Vol rate/Area] 51.7 mL/min/{1.73_m2} Low - PINF [facility] Comment on above: Calculation based on the Chronic Kidney Disease Epidemiology Collaboration (CKD-EPI) equation refit without adjustment for race Glucose [Mass/Vol] 101 mg/dL High 70 - 100 mg/dL [facility] Interpretation and review of laboratory results Abnormal [facility] Potassium [Moles/Vol] 3.8 mmol/L 3.5 - 5.1 mmol/L [facility] Protein [Mass/Vol] 5.6 g/dL Low 6.3 - 8.2 g/dL [facility] Sodium [Moles/Vol] 137 mmol/L 135 - 145 mmol/L [facility] Urea nitrogen [Mass/Vol] 15 mg/dL 7 - 17 mg/dL [facility] Bacteria identified Aer cx N om (Unsp spec)Ordered By: Damien Díaz on 01-05-2024 Gram Stain Result Many Polymorphonucle ar leukocytes per low power field Abnormal [facility] Gram Stain Result Positive Abnormal [facility] Interpretation and review of laboratory results Abnormal [facility] CBC panel Auto (Bld)on 01-04 Erythrocyte distribution width (RBC) [Ratio] 12.8 % 11.5 - 15.0 % [facility] Hematocrit (Bld) [Volume fraction] 40.2 % 35.0 - 47.0 % [facility] Hemoglobin (Bld) [Mass/Vol] 13.3 g/dL 11.7 - 16.0 g/dL [facility] Interpretation and review of laboratory results Normal [facility] MCH (RBC) [Entitic mass] 30.6 pg 26.0 - 34.0 pg [facility] MCHC (RBC) [Mass/Vol] 33.1 % 30.5 - 36.0 % [facility] MCV (RBC) [Entitic vol] 92.6 fL 77.0 - 99.0 fL [facility] Platelet mean volume (Bld) [Entitic vol] 9.1 fL 9.0 - 12.7 fL [facility] Platelets (Bld) [#/Vol] 342 10*3/uL 140 - 440 10*3/uL [facility] RBC (Bld) [#/Vol] 4.34 10*6/uL 3.80 - 5.20 10*6/uL [facility] WBC (Bld) [#/Vol] 9.4 10*3/uL 3.6 - 10.7 10*3/uL [facility] Comprehensive metabolic 1998 panelon 01-05-2024 Albumin [Mass/Vol] 2.9 g/dL Low 3.5 - 5.0 g/dL [facility] ALP [Catalytic activity/Vol] 112 U/L 38 - 126 U/L [facility] ALT [Catalytic activity/Vol] 51 U/L High 0 - 34 U/L [facility] Anion gap [Moles/Vol] 4 mmol/L 3 - 13 mmol/L [facility] AST [Catalytic activity/Vol] 31 U/L 15 - 46 U/L [facility] Bilirubin [Mass/Vol] 0.4 mg/dL 0.2 - 1 .3 mg/dL [facility] Calcium [Mass/Vol] 8.4 mg/dL 8.4 - 10. 4 mg/dL [facility] Chloride [Moles/Vol] 107 mmol/L 98 - 10 7 mmol/L [facility] CO2 [Moles/Vol] 25 mmol/L 22 - 30 mmol/L [facility] Creatinine [Mass/Vol] 0.81 mg/dL 0.52 - 1.04 mg/dL [facility] GFR/1.73 sq M.predicted MDRD (S/P/Bld) [Vol rate/Area] 73.0 mL/min/{1.73_m2} - PINF [facility] Comment on above: Calculation based on the Chronic Kidney Disease Epidemiology Collaboration (CKD-EPI) equation refit without adjustment for race Glucose [Mass/Vol] 97 mg/dL 70 - 100 mg/dL [facility] Interpretation and review of laboratory results Abnormal [facility] Potassium [Moles/Vol] 3.8 mmol/L 3.5 - 5.1 mmol/L [facility] Protein [Mass/Vol] 5.7 g/dL Low 6.3 - 8.2 g/dL [facility] Sodium [Moles/Vol] 135 mmol/L 135 - 145 mmol/L [facility] Urea nitrogen [Mass/Vol] 13 mg/dL 7 - 17 mg/dL [facility] - Microbiology an d Antimicrobial susceptibilityOrdered By: Damien Díaz on 01-05-2024 Bacteria identified Aer cx Nom (Unsp spec) Moderate Streptococcus constellatus (anginosus group) Abnormal [facility] CBC panel Auto (Bld)on 01-03 Erythrocyte distribution width (RBC) [Ratio] 12.7 % 11.5 - 15.0 % [facility] Hematocrit (Bld) [Volume fraction] 37.0 % 35.0 - 47.0 % [facility] Hemoglobin (Bld) [Mass/Vol] 12.3 g/dL 11.7 - 16.0 g/dL [facility] Interpretation and review of laboratory results Abnormal [facility] MCH (RBC) [Entitic mass] 31.5 pg 26.0 - 34.0 pg [facility] MCHC (RBC) [Mass/Vol] 33.2 % 30.5 - 36.0 % [facility] MCV (RBC) [Entitic vol] 94.6 fL 77.0 - 99.0 fL [facility] Platelet mean volume (Bld) [Entitic vol] 9.2 fL 9.0 - 12.7 fL [facility] Platelets (Bld) [#/Vol] 307 10*3/uL 140 - 440 10*3/uL [facility] RBC (Bld) [#/Vol] 3.91 10*6/uL 3.80 - 5.20 10*6/uL [facility] WBC (Bld) [#/Vol] 10.9 10*3/uL High 3.6 - 10.7 10*3/uL [facility] Comprehensive metabolic 1998 panelon 01-04-2024 Albumin [Mass/Vol] 2.6 g/dL Low 3.5 - 5.0 g/dL [facility] ALP [Catalytic activity/Vol] 112 U/L 38 - 126 U/L [facility] ALT [Catalytic activity/Vol] 62 U/L High 0 - 34 U/L [facility] Anion gap [Moles/Vol] 4 mmol/L 3 - 13 mmol/L [facility] AST [Catalytic activity/Vol] 40 U/L 15 - 46 U/L [facility] Bilirubin [Mass/Vol] 0.3 mg/dL 0.2 - 1 .3 mg/dL [facility] Calcium [Mass/Vol] 8.1 mg/dL Low 8.4 - 10. 4 mg/dL [facility] Chloride [Moles/Vol] 109 mmol/L High 98 - 10 7 mmol/L [facility] CO2 [Moles/Vol] 25 mmol/L 22 - 30 mmol/L [facility] Creatinine [Mass/Vol] 0.96 mg/dL 0.52 - 1.04 mg/dL [facility] GFR/1.73 sq M.predicted MDRD (S/P/Bld) [Vol rate/Area] 59.6 mL/min/{1.73_m2} Low - PINF [facility] Comment on above: Calculation based on the Chronic Kidney Disease Epidemiology Collaboration (CKD-EPI) equation refit without adjustment for race Glucose [Mass/Vol] 82 mg/dL 70 - 100 mg/dL [facility] Interpretation and review of laboratory results Abnormal [facility] Potassium [Moles/Vol] 3.6 mmol/L 3.5 - 5.1 mmol/L [facility] Protein [Mass/Vol] 5.2 g/dL Low 6.3 - 8.2 g/dL [facility] Sodium [Moles/Vol] 137 mmol/L 135 - 145 mmol/L [facility] Urea nitrogen [Mass/Vol] 19 mg/dL High 7 - 17 mg/dL [facility] Basic metabolic 1998 panelon 01-01-2024 Anion gap [Moles/Vol] 2 mmol/L Low 3 - 13 mmol/L [facility] Calcium [Mass/Vol] 8.0 mg/dL Low 8.4 - 10. 4 mg/dL [facility] Chloride [Moles/Vol] 108 mmol/L High 98 - 10 7 mmol/L [facility] CO2 [Moles/Vol] 27 mmol/L 22 - 30 mmol/L [facility] Creatinine [Mass/Vol] 0.97 mg/dL 0.52 - 1.04 mg/dL [facility] GFR/1.73 sq M.predicted MDRD (S/P/Bld) [Vol rate/Area] 58.8 mL/min/{1.73_m2} Low - PINF [facility] Comment on above: Calculation based on the Chronic Kidney Disease Epidemiology Collaboration (CKD-EPI) equation refit without adjustment for race Glucose [Mass/Vol] 83 mg/dL 70 - 100 mg/dL [facility] Interpretation and review of laboratory results Abnormal [facility] Potassium [Moles/Vol] 3.6 mmol/L 3.5 - 5.1 mmol/L [facility] Sodium [Moles/Vol] 137 mmol/L 135 - 145 mmol/L [facility] Urea nitrogen [Mass/Vol] 23 mg/dL High 7 - 17 mg/dL [facility] CBC W Auto Differential pane l (Bld)Ordered By: Jyothi Crain on 01-01-2024 Basophils (Bld) [#/Vol] 0.0 10*3/uL 0.0 - 0.2 10*3/uL [facility] Basophils/100 WBC (Bld) 0.3 % 0.0 - 2.0 % [facility] Eosinophils (Bld) [#/Vol] 0.1 10*3/uL 0.0 - 0.5 10*3/uL [facility] Eosinophils/100 WBC (Bld) 1.2 % 0.0 - 6.0 % [facility] Erythrocyte distribution width (RBC) [Ratio] 12.8 % 11.5 - 15.0 % [facility] Hematocrit (Bld) [Volume fraction] 38.4 % 35.0 - 47.0 % [facility] Hemoglobin (Bld) [Mass/Vol] 12.6 g/dL 11.7 - 16.0 g/dL [facility] [employer] Immature granulocytes (Bld) [#/Vol] 0.1 10*3/uL High NINF - 0.1 10*3/uL [facility] [employer] Immature granulocytes/100 WBC (Bld) 1.1 % 0.0 - 2.0 % [facility] Interpretation and review of laboratory results Abnormal [facility] Lymphocytes (Bld) [#/Vol] 1.6 10*3/uL 1.0 - 4.3 10*3/uL [facility] Lymphocytes/100 WBC (Bld) 20.9 % 15.0 - 45.0 % [facility] MCH (RBC) [Entitic mass] 31.0 pg 26.0 - 34.0 pg [facility] [employer] MCHC (RBC) [Mass/Vol] 32.8 % 30.5 - 36.0 % [facility] [employer] MCV (RBC) [Entitic vol] 94.3 fL 77.0 - 99.0 fL [facility] [employer] Monocytes (Bld) [#/Vol] 0.8 10*3/uL 0.0 - 0.9 10*3/uL [facility] [employer] Monocytes/100 WBC (Bld) 10.7 % 5.0 - 13.0 % [facility] [employer] Neutrophils (Bld) [#/Vol] 5.0 10*3/uL 1.8 - 7.5 10*3/uL [facility] [employer] Neutrophils/100 WBC (Bld) 65.8 % 38.0 - 82.0 % [facility] [employer] Nucleated RBC/100 WBC (Bld) [Ratio] 0.0 % [facility] [employer] Platelet mean volume (Bld) [Entitic vol] 9.2 fL 9.0 - 12.7 fL [facility] [employer] Platelets (Bld) [#/Vol] 300 10*3/uL 140 - 440 10*3/uL [facility] [employer] RBC (Bld) [#/Vol] 4.07 10*6/uL 3.80 - 5.20 10*6/uL [facility] [employer] WBC (Bld) [#/Vol] 7.6 10*3/uL 3.6 - 10.7 10*3/uL [facility] [employer] [facility] [employer] No Panel InformationOrdered By: Constantine Ruiz on 01-01-2024 P [place] -17 degrees [employer] Work Phone: [place] Interval 127 ms [employer] Work Phone: [phone] QRS [place] 6 degrees [employer] Work Phone: QRSD Interval 99 ms [employer] Work Phone: QT Interval 468 ms [employer] Work Phone: QTC Interval 480 ms [employer] Work Phone: T Wave [place] 8 degrees [employer] Work Phone: [employer] Work Phone: [phone] No Panel Informationon 12-31 Sinus rhythm Low voltage, precordial leads Nonspecific T abnormalities, anterior leads Electronically Signed On 01-01-2024 01:01:50 EDT by Constantine Ruiz CV Constantine Ford MD - 01/01/2024 IMPRESSION: Sinus rhythm Low voltage, precordial leads Nonspecific T abnormalities, anterior leads Electronically Signed On 01-01-2024 01:01:50 EDT by Constantine Ruiz [facility] Vital signsOrdered By: Constantine Ruiz on 01-01-2024 Heart rate 63 /min bpm [facility] [employer] Work Phone: Basic metabolic 1998 panelon 12-31-2023 Anion gap [Moles/Vol] 9 mmol/L 3 - 13 mmol/L [facility] [employer] Calcium [Mass/Vol] 9.3 mg/dL 8.4 - 10. 4 mg/dL [facility] Chloride [Moles/Vol] 106 mmol/L 98 - 10 7 mmol/L [facility] [employer] CO2 [Moles/Vol] 26 mmol/L 22 - 30 mmol/L [facility] [employer] Creatinine [Mass/Vol] 0.91 mg/dL 0.52 - 1.04 mg/dL [facility] GFR/1.73 sq M.predicted MDRD (S/P/Bld) [Vol rate/Area] 63.5 mL/min/{1.73_m2} - PINF [facility] Comment on above: Calculation based on the Chronic Kidney Disease Epidemiology Collaboration (CKD-EPI) equation refit without adjustment for race Glucose [Mass/Vol] 123 mg/dL High 70 - 100 mg/dL [facility] Interpretation and review of laboratory results Abnormal [facility] Potassium [Moles/Vol] 3.4 mmol/L Low 3.5 - 5.1 mmol/L [facility] Sodium [Moles/Vol] 141 mmol/L 135 - 145 mmol/L [facility] Urea nitrogen [Mass/Vol] 30 mg/dL High 7 - 17 mg/dL [facility] CBC W Auto Differential pane l (Bld)Ordered By: Margarita Dominique on 12-31-2023 Basophils (Bld) [#/Vol] 0.1 10*3/uL 0.0 - 0.2 10*3/uL [facility] Basophils/100 WBC (Bld) 0.4 % 0.0 - 2.0 % [facility] Eosinophils (Bld) [#/Vol] 0.1 10*3/uL 0.0 - 0.5 10*3/uL [facility] Eosinophils/100 WBC (Bld) 0.8 % 0.0 - 6.0 % [facility] Erythrocyte distribution width (RBC) [Ratio] 12.5 % 11.5 - 15.0 % [facility] Hematocrit (Bld) [Volume fraction] 46.5 % 35.0 - 47.0 % [facility] Hemoglobin (Bld) [Mass/Vol] 15.4 g/dL 11.7 - 16.0 g/dL [facility] Immature granulocytes (Bld) [#/Vol] 0.1 10*3/uL High NINF - 0.1 10*3/uL [facility] Immature granulocytes/100 WBC (Bld) 0.9 % 0.0 - 2.0 % [facility] Interpretation and review of laboratory results Abnormal [facility] Lymphocytes (Bld) [#/Vol] 0.7 10*3/uL Low 1.0 - 4.3 10*3/uL [facility] Lymphocytes/100 WBC (Bld) 6.4 % Low 15.0 - 45.0 % [facility] MCH (RBC) [Entitic mass] 30.7 pg 26.0 - 34.0 pg [facility] MCHC (RBC) [Mass/Vol] 33.1 % 30.5 - 36.0 % [facility] MCV (RBC) [Entitic vol] 92.6 fL 77.0 - 99.0 fL [facility] Monocytes (Bld) [#/Vol] 0.6 10*3/uL 0.0 - 0.9 10*3/uL [facility] Monocytes/100 WBC (Bld) 5.0 % 5.0 - 13.0 % [facility] Neutrophils (Bld) [#/Vol] 9.8 10*3/uL High 1.8 - 7.5 10*3/uL [facility] Neutrophils/100 WBC (Bld) 86.5 % High 38.0 - 82.0 % [facility] Nucleated RBC/100 WBC (Bld) [Ratio] 0.0 % [facility] Platelet mean volume (Bld) [Entitic vol] 9.7 fL 9.0 - 12.7 fL [facility] Platelets (Bld) [#/Vol] 405 10*3/uL 140 - 440 10*3/uL [facility] RBC (Bld) [#/Vol] 5.02 10*6/uL 3.80 - 5.20 10*6/uL [facility] WBC (Bld) [#/Vol] 11.3 10*3/uL High 3.6 - 10.7 10*3/uL [facility] CT Neck W contrast Radha - 1. Status post extraction of left lower tooth number 20, previously seen fluid collection a little larger and better defined, may represent an abscess. Report Dictated on Electronically Signed By: Branden Linares MD Electronically Signed Date/Time: 12/31/2023 7:56 PM EDT [employer] Patient Name: DIANA KOHLI : 1940 Exam Date/Time: 12/31/2023 19:43 Procedure: CT SOFT TISSUE NECK W IV CONTRAST Ordering Provider: GILMORE VISHNU Reason For Exam: Neck mass, nonpulsatile CT OF THE NECK SOFT TISSUES WITH IV CONTRAST CLINICAL INDICATION: Neck mass, nonpulsatile TECHNIQUE: CT of the neck soft tissues with IV contrast. Multiplanar reformations. Dose reduction was employed with automated exposure control. COMPARISON: 12/28/2023 FINDINGS: Previously seen fluid involving the floor the mouth and submental space again noted, collection appears slightly better defined, and a little larger currently. For instance today's maximum size 4.5 cm in transverse dimension by 3.7 cm in AP dimension. Previously was about 3.6 cm in transverse dimension and 3.7 cm in AP dimension. Left lower tooth number 20 has been extracted since the previous study. No significant airway compromise seen. Examination otherwise unchanged. [facility] [employer] Branden Linares MD - 12/31/2023 Patient Name: DIANA KOHLI : 1940 Exam Date/Time: 12/31/2023 19:43 Procedure: CT SOFT TISSUE NECK W IV CONTRAST Ordering Provider: GILMORE VISHNU Reason For Exam: Neck mass, nonpulsatile CT OF THE NECK SOFT TISSUES WITH IV CONTRAST CLINICAL INDICATION: Neck mass, nonpulsatile TECHNIQUE: CT of the neck soft tissues with IV contrast. Multiplanar reformations. Dose reduction was employed with automated exposure control. COMPARISON: 12/28/2023 FINDINGS: Previously seen fluid involving the floor the mouth and submental space again noted, collection appears slightly better defined, and a little larger currently. For instance today's maximum size 4.5 cm in transverse dimension by 3.7 cm in AP dimension. Previously was about 3.6 cm in transverse dimension and 3.7 cm in AP dimension. Left lower tooth number 20 has been extracted since the previous study. No significant airway compromise seen. Examination otherwise unchanged. IMPRESSION: 1. Status post extraction of left lower tooth number 20, previously seen fluid collection a little larger and better defined, may represent an abscess. Report Dictated on Electronically Signed By: Branden Linares MD Electronically Signed Date/Time: 12/31/2023 7:56 PM EDT [employer] [employer] [employer] Radiology Study observation (narrative) [employer] CT Neck W contrast IVOrdered By: Branden Linares on 12-31-2023 [employer] Work Phone: Basic metabolic 1998 panelon 12-29-2023 Anion gap [Moles/Vol] 6 mmol/L 3 - 13 mmol/L [facility] [employer] Calcium [Mass/Vol] 9.2 mg/dL 8.4 - 10. 4 mg/dL [facility] [employer] Chloride [Moles/Vol] 106 mmol/L 98 - 10 7 mmol/L [facility] [employer] CO2 [Moles/Vol] 26 mmol/L 22 - 30 mmol/L [employer] Creatinine [Mass/Vol] 0.89 mg/dL 0.52 - 1.04 mg/dL [facility] [employer] GFR/1.73 sq M.predicted MDRD (S/P/Bld) [Vol rate/Area] 65.2 mL/min/{1.73_m2} - PINF [facility] [employer] Comment on above: Calculation based on the Chronic Kidney Disease Epidemiology Collaboration (CKD-EPI) equation refit without adjustment for race Glucose [Mass/Vol] 105 mg/dL High 70 - 100 mg/dL [facility] Interpretation and review of laboratory results Abnormal [facility] Potassium [Moles/Vol] 3.6 mmol/L 3.5 - 5.1 mmol/L [facility] Sodium [Moles/Vol] 139 mmol/L 135 - 145 mmol/L [facility] Urea nitrogen [Mass/Vol] 19 mg/dL High 7 - 17 mg/dL [facility] CBC W Auto Differential pane l (Bld)on 12-29-2023 Basophils (Bld) [#/Vol] 0.0 10*3/uL 0.0 - 0.2 10*3/uL [facility] Basophils/100 WBC (Bld) 0.3 % 0.0 - 2.0 % [facility] Eosinophils (Bld) [#/Vol] 0.1 10*3/uL 0.0 - 0.5 10*3/uL [facility] Eosinophils/100 WBC (Bld) 0.5 % 0.0 - 6.0 % [facility] Erythrocyte distribution width (RBC) [Ratio] 12.4 % 11.5 - 15.0 % [facility] Hematocrit (Bld) [Volume fraction] 45.0 % 35.0 - 47.0 % [facility] Hemoglobin (Bld) [Mass/Vol] 14.8 g/dL 11.7 - 16.0 g/dL [facility] Immature granulocytes (Bld) [#/Vol] 0.1 10*3/uL High NINF - 0.1 10*3/uL [facility] Immature granulocytes/100 WBC (Bld) 0.5 % 0.0 - 2.0 % [facility] Interpretation and review of laboratory results Abnormal [facility] Lymphocytes (Bld) [#/Vol] 1.4 10*3/uL 1.0 - 4.3 10*3/uL [facility] Lymphocytes/100 WBC (Bld) 10.9 % Low 15.0 - 45.0 % [facility] MCH (RBC) [Entitic mass] 31.5 pg 26.0 - 34.0 pg [facility] MCHC (RBC) [Mass/Vol] 32.9 % 30.5 - 36.0 % [facility] MCV (RBC) [Entitic vol] 95.7 fL 77.0 - 99.0 fL [facility] Monocytes (Bld) [#/Vol] 1.0 10*3/uL High 0.0 - 0.9 10*3/uL [facility] Monocytes/100 WBC (Bld) 7.9 % 5.0 - 13.0 % [facility] Neutrophils (Bld) [#/Vol] 10.3 10*3/uL High 1.8 - 7.5 10*3/uL [facility] Neutrophils/100 WBC (Bld) 79.9 % 38.0 - 82.0 % [facility] Nucleated RBC/100 WBC (Bld) [Ratio] 0.0 % [facility] Platelet mean volume (Bld) [Entitic vol] 9.4 fL 9.0 - 12.7 fL [facility] Platelets (Bld) [#/Vol] 307 10*3/uL 140 - 440 10*3/uL [facility] RBC (Bld) [#/Vol] 4.70 10*6/uL 3.80 - 5.20 10*6/uL [facility] WBC (Bld) [#/Vol] 12.9 10*3/uL High 3.6 - 10.7 10*3/uL [facility] - Coagulationon 0 12-29-2023 aPTT Coag (PPP) [Time] 28.6 s 20.0 - 30.5 s [facility] INR Coag (PPP) [Relative time] 1.0 {INR} 0.9 - 1.1 [facility] Comment on above: Recommended Anticoag ulant Therapy: SEE BELOW ----- INR of 2.0 - 3.0 : - Prophylaxis of Venous Thrombosis (high-risk surgery) - Treatment of Venous Thrombosis - Treatment of Pulmonary Embolism (Includes tissue heart valves, Acute Myocardial Infarction to prevent systemic embolism, Valvular Heart Disease, and Atrial Fibrillation) ----- INR of 2.5 - 3.5 : - Mechanical Prosthetic Valves (high risk) - If oral anticoagulant therapy is used to prevent Myocardial Infarction PT Coag (Bld) [Time] 10.6 s 9.0 - 1 2.0 s [facility] - Microbiology an d Antimicrobial susceptibilityOrdered By: Juan Mcwilliams on 12-29-2023 SARS-CoV-2 (COVID-19) Ag IA.rapid Ql (Resp) Negative Negative [facility] Comment on above: A negative result do es not rule out the possibility of SARS-CoV-2 infection. NAAT-based methods should be considered for symptomatic patients presenting greater than seven days after onset of symptoms. Method: Lateral flow immunoassay. Fact sheets for healthcare providers and patients can be found at the following sites: https://www.[employer].gov/media/573357/download https://www.[employer].gov/media/792926/download No Panel Informationon 12-28 [facility] Interpretation and review of laboratory results Normal [facility] SARS-CoV-2 (COVID-19) Ag IA. rapid Ql (Resp)Ordered By: Juan Mcwilliams on 12-29-2023 Interpretation and review of laboratory results Normal [facility] Basic metabolic 1998 panelon 12-28-2023 Anion gap [Moles/Vol] 9 mmol/L 3 - 13 mmol/L [facility] Calcium [Mass/Vol] 9.8 mg/dL 8.4 - 10. 4 mg/dL [facility] [employer] Chloride [Moles/Vol] 106 mmol/L 98 - 10 7 mmol/L [facility] CO2 [Moles/Vol] 24 mmol/L 22 - 30 mmol/L [facility] Creatinine [Mass/Vol] 1.09 mg/dL High 0.52 - 1.04 mg/dL [facility] GFR/1.73 sq M.predicted MDRD (S/P/Bld) [Vol rate/Area] 51.1 mL/min/{1.73_m2} Low - PINF [facility] Comment on above: Calculation based on the Chronic Kidney Disease Epidemiology Collaboration (CKD-EPI) equation refit without adjustment for race Glucose [Mass/Vol] 105 mg/dL High 70 - 100 mg/dL [facility] Potassium [Moles/Vol] 4.0 mmol/L 3.5 - 5.1 mmol/L [facility] Sodium [Moles/Vol] 139 mmol/L 135 - 145 mmol/L [facility] Urea nitrogen [Mass/Vol] 23 mg/dL High 7 - 17 mg/dL [facility] CBC W Auto Differential pane l (Bld)on 12-28-2023 Basophils (Bld) [#/Vol] 0.0 10*3/uL 0.0 - 0.2 10*3/uL [facility] Basophils/100 WBC (Bld) 0.3 % 0.0 - 2.0 % [facility] Eosinophils (Bld) [#/Vol] 0.1 10*3/uL 0.0 - 0.5 10*3/uL [facility] Eosinophils/100 WBC (Bld) 0.5 % 0.0 - 6.0 % [facility] Erythrocyte distribution width (RBC) [Ratio] 12.5 % 11.5 - 15.0 % [facility] Hematocrit (Bld) [Volume fraction] 45.8 % 35.0 - 47.0 % [facility] Hemoglobin (Bld) [Mass/Vol] 15.1 g/dL 11.7 - 16.0 g/dL [facility] Immature granulocytes (Bld) [#/Vol] 0.1 10*3/uL High NINF - 0.1 10*3/uL [facility] Immature granulocytes/100 WBC (Bld) 0.5 % 0.0 - 2.0 % [facility] Interpretation and review of laboratory results Abnormal [facility] Lymphocytes (Bld) [#/Vol] 1.9 10*3/uL 1.0 - 4.3 10*3/uL [facility] Lymphocytes/100 WBC (Bld) 13.1 % Low 15.0 - 45.0 % [facility] MCH (RBC) [Entitic mass] 30.8 pg 26.0 - 34.0 pg [facility] MCHC (RBC) [Mass/Vol] 33.0 % 30.5 - 36.0 % [facility] MCV (RBC) [Entitic vol] 93.5 fL 77.0 - 99.0 fL [facility] Monocytes (Bld) [#/Vol] 1.3 10*3/uL High 0.0 - 0.9 10*3/uL [facility] Monocytes/100 WBC (Bld) 9.0 % 5.0 - 13.0 % [facility] Neutrophils (Bld) [#/Vol] 10.9 10*3/uL High 1.8 - 7.5 10*3/uL [facility] Neutrophils/100 WBC (Bld) 76.6 % 38.0 - 82.0 % [facility] Nucleated RBC/100 WBC (Bld) [Ratio] 0.0 % [facility] Platelet mean volume (Bld) [Entitic vol] 9.3 fL 9.0 - 12.7 fL [facility] Platelets (Bld) [#/Vol] 320 10*3/uL 140 - 440 10*3/uL [facility] RBC (Bld) [#/Vol] 4.90 10*6/uL 3.80 - 5.20 10*6/uL [facility] WBC (Bld) [#/Vol] 14.2 10*3/uL High 3.6 - 10.7 10*3/uL [facility] CT Neck W contrast Radha - 4 cm heterogeneous area of hypoattenuation in the anterior floor mouth involving the sublingual spaces, with spread to the submental space. This is most likely cellulitis with inflammatory phlegmon or developing abscess, potentially arising from either the left sublingual gland or an odontogenic source such as the left second mandibular premolar. No associated airway compromise. 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 2D sagittal and coronal reconstructions were obtained from the axial data. Dose reduction was employed with automated exposure control. FINDINGS: Aerodigestive tract: There is a hypoechoic collection extending from the sublingual spaces bilaterally into the submental space measuring 4.2 x 4.5 x 4 cm. This area of hypoattenuation is heterogeneous with ill-defined margins and areas of mild peripheral enhancement. This finding could arise from either the left sublingual gland or an odontogenic source such as the left second mandibular premolar which has a carious lesion and 7 mm periapical cyst or abscess. There is no significant extension of this infectious process into the submandibular spaces or posteriorly within the floor of mouth. There is no airway compromise or laryngeal edema. No retropharyngeal collection. Lymph nodes: No pathologically enlarged, necrotic, or otherwise abnormal lymph nodes. Major salivary glands: Normal. Thyroid gland: Normal. Carotid space: Patent bilateral extracranial carotid and jugular systems. Atherosclerotic calcifications at the carotid bifurcations. There is also dense calcified plaque in the carotid siphons and intracranial left vertebral artery. Paranasal sinuses, middle ears, mastoids: Clear. Brain and orbits: Small remote left cerebellar infarct. Generalized prequel volume loss and chronic small vessel ischemic changes. Bones: No fracture or aggressive osseous lesion. Lungs: Mild emphysematous changes bilaterally. 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 Moderate diffuse irregular atherosclerotic plaque is also noted within the aortic arch. No significant great vessel origin stenosis. [facility] Marcelino Serna M D - 12/28/2023 [facility] 1940 [id number] Exam Date/Time: 12/28/2023 21:46 Procedure: CT SOFT TISSUE NECK W IV CONTRAST Ordering Provider: GILMORE VISHNU Reason For Exam: strong suspicion for submental abscess/ludwigs angina EXAMINATION: CT SOFT TISSUE NECK W IV CONTRAST CLINICAL HISTORY: strong suspicion for submental abscess/ludwigs angina COMPARISON: None TECHNIQUE: Thin axial images were obtained through the neck with intravenous contrast. 2D sagittal and coronal reconstructions were obtained from the axial data. Dose reduction was employed with automated exposure control. FINDINGS: Aerodigestive tract: There is a hypoechoic collection extending from the sublingual spaces bilaterally into the submental space measuring 4.2 x 4.5 x 4 cm. This area of hypoattenuation is heterogeneous with ill-defined margins and areas of mild peripheral enhancement. This finding could arise from either the left sublingual gland or an odontogenic source such as the left second mandibular premolar which has a carious lesion and 7 mm periapical cyst or abscess. There is no significant extension of this infectious process into the submandibular spaces or posteriorly within the floor of mouth. There is no airway compromise or laryngeal edema. No retropharyngeal collection. Lymph nodes: No pathologically enlarged, necrotic, or otherwise abnormal lymph nodes. Major salivary glands: Normal. Thyroid gland: Normal. Carotid space: Patent bilateral extracranial carotid and jugular systems. Atherosclerotic calcifications at the carotid bifurcations. There is also dense calcified plaque in the carotid siphons and intracranial left vertebral artery. Paranasal sinuses, middle ears, mastoids: Clear. Brain and orbits: Small remote left cerebellar infarct. Generalized prequel volume loss and chronic small vessel ischemic changes. Bones: No fracture or aggressive osseous lesion. Lungs: Mild emphysematous changes bilaterally. 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 Moderate diffuse irregular atherosclerotic plaque is also noted within the aortic arch. No significant great vessel origin stenosis. IMPRESSION: 4 cm heterogeneous area of hypoattenuation in the anterior floor mouth involving the sublingual spaces, with spread to the submental space. This is most likely cellulitis with inflammatory phlegmon or developing abscess, potentially arising from either the left sublingual gland or an odontogenic source such as the left second mandibular premolar. No associated airway compromise. 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 Report Dictated on Electronically Signed By: Marcelino Serna MD Electronically Signed Date/Time: 12/28/2023 10:06 PM EDT [facility] [employer] Radiology Study observation (narrative) [facility] [employer] CT Neck W contrast IVOrdered By: Marcelino Serna on 12-28-2023 [facility] [employer] Work Phone: Hepatic function 2000 panelo n 12-28-2023 Albumin [Mass/Vol] 3.8 g/dL 3.5 - 5.0 g/dL [facility] [employer] ALP [Catalytic activity/Vol] 145 U/L High 38 - 126 U/L [facility] [employer] ALT [Catalytic activity/Vol] 37 U/L High 0 - 34 U/L [facility] [employer] AST [Catalytic activity/Vol] 37 U/L 15 - 46 U/L [facility] [employer] Bilirubin [Mass/Vol] 0.8 mg/dL 0.2 - 1 .3 mg/dL [facility] [employer] Bilirubin.conjugated [Mass/Vol] 0.0 mg/dL 0.0 - 0.3 mg/dL [facility] [employer] Protein [Mass/Vol] 7.5 g/dL 6.3 - 8.2 g/dL [facility] - Chemistry and C hemistry - challengeon 12-28-2023 Lactate [Moles/Vol] 0.9 mmol/L 0.7 - 2. 0 mmol/L [facility] No Panel Informationon 12-27 Interpretation and review of laboratory results Abnormal [facility] Interpretation and review of laboratory results Normal [facility] CHEST 2 VIEWSon 05-17-2017 CHEST 2 VIEWS Performed at [facility] APPROVED BY: Verito Rebollar MD EXAMINATION: CHEST RADIOGRAPH (2 VIEW FRONTAL & LATERAL) Clinical History: Chest pain. Smoking historyM: [id number]: 12/09/2016 RESULT: Lines, tubes, and devices: None. Lungs and pleura: No consolidation. No lung mass. No pleural effusion. Cardiomediastinal silhouette: Normal cardiomediastinal silhouette. Other: IMPRESSION: No acute radiographic abnormality. Normal [facility] Vital Signs Date Time Vital Sign Value Performing Clinician Faci lity 06-10-2025 07:35-0400 Body temperature 96.6 [degF] Tk Glozman DO Work Phone: [facility] [employer] 06-10-2025 07:35-0400 Diastolic blood pressure 55 mm[Hg] Tk Glozman DO Work Phone: [facility] [employer] 06-10-2025 07:35-0400 Heart rate 55 /min Tk Glozman DO Work Phone: [facility] [employer] 06-10-2025 07:35-0400 Respiratory rate 17 /min Tk Glozman DO Work Phone: [facility] [employer] 06-10-2025 07:35-0400 SaO2% (BldA) [Mass fraction] 92 % Tk Glozman DO Work Phone: [facility] [employer] 06-10-2025 07:35-0400 Systolic blood pressure 136 mm[Hg] Tk Glozman DO Work Phone: [facility] [employer] 06-10-2025 05:21-0400 Body mass index (BMI) [Ratio] 33.39 kg/m2 Tk Glozman DO Work Phone: [employer] 06-10-2025 05:21-0400 Body weight 82.83 kg Tk Glozman DO Work Phone: [employer] 05-24-2025 02:51-0400 Body height 157.5 cm Tk Glozman DO Work Phone: [employer] 04-20-2025 09:35-0400 Body temperature 97 [degF] Rafat Farley MD Work Phone: [employer] 04-20-2025 09:35-0400 Diastolic blood pressure 88 mm[Hg] Rafat Farley MD Work Phone: [employer] 04-20-2025 09:35-0400 Heart rate 70 /min Rafat Farley MD Work Phone: [employer] 04-20-2025 09:35-0400 Respiratory rate 16 /min Rafat Farley MD Work Phone: [employer] 04-20-2025 09:35-0400 SaO2% (BldA) [Mass fraction] 97 % Rafat Farley MD Work Phone: [employer] 04-20-2025 09:35-0400 Systolic blood pressure 132 mm[Hg] Rafat Farley MD Work Phone: [employer] 04-19-2025 01:26-0400 Body height 157.5 cm Rafat Farley MD Work Phone: [employer] 04-19-2025 01:26-0400 Body mass index (BMI) [Ratio] 33.82 kg/m2 Rafat Farley MD Work Phone: [employer] 04-19-2025 01:26-0400 Body weight 83.9 kg Rafat Farley MD Work Phone: [employer] 04-17-2025 12:35-0400 Diastolic blood pressure 97 mm[Hg] Chet Day DO Work Phone: [employer] 04-17-2025 12:35-0400 Heart rate 64 /min Chet Pendletonffey DO Work Phone: [facility] [employer] 04-17-2025 12:35-0400 Respiratory rate 20 /min Chet Day DO Work Phone: [facility] [employer] 04-17-2025 12:35-0400 SaO2% (BldA) [Mass fraction] 98 % Chet Day DO Work Phone: [facility] [employer] 04-17-2025 12:35-0400 Systolic blood pressure 194 mm[Hg] Chet Day DO Work Phone: [facility] [employer] 04-17-2025 09:34-0400 Body temperature 96.91 [degF] Chte Day DO Work Phone: [facility] [employer] 04-17-2025 09:27-0400 Body height 157.5 cm Chet Day DO Work Phone: [facility] [employer] 04-17-2025 09:27-0400 Body mass index (BMI) [Ratio] 33.84 kg/m2 Chet Day DO Work Phone: [facility] [employer] 04-17-2025 09:27-0400 Body weight 83.92 kg Chet aDy DO Work Phone: [facility] [employer] 01-06-2024 07:21-0400 Body temperature 97.59 [degF] Jose Loomiskola DO Work Phone: [facility] [employer] 01-06-2024 07:21-0400 Diastolic blood pressure 81 mm[Hg] Jose Mudrakola DO Work Phone: [facility] [employer] 01-06-2024 07:21-0400 Heart rate 52 /min Jose Clovisrakola DO Work Phone: [facility] [employer] 01-06-2024 07:21-0400 Respiratory rate 16 /min Jose Clovisrakola DO Work Phone: [facility] [employer] 01-06-2024 07:21-0400 SaO2% (BldA) [Mass fraction] 94 % Jose Mudrakola DO Work Phone: [facility] [employer] 01-06-2024 07:21-0400 Systolic blood pressure 130 mm[Hg] Jose Eboniekola DO Work Phone: [facility] [employer] 01-03-2024 08:38-0400 Body height 157.5 cm Jose Eboniekola DO Work Phone: [facility] [employer] 12-31-2023 23:17-0400 Body mass index (BMI) [Ratio] 33.84 kg/m2 Jose Yungla DO Work Phone: [facility] [employer] 12-31-2023 23:17-0400 Body weight 83.92 kg Jose Barraganla DO Work Phone: [facility] [employer] 12-30-2023 14:21-0400 Body temperature 96.91 [degF] Jose Yungla DO Work Phone: [facility] [employer] 12-30-2023 14:21-0400 Diastolic blood pressure 57 mm[Hg] Jose Eboniekola DO Work Phone: [facility] [employer] 12-30-2023 14:21-0400 Heart rate 58 /min Jose Yungla DO Work Phone: [facility] [employer] 12-30-2023 14:21-0400 Respiratory rate 18 /min Jose Yungla DO Work Phone: [facility] [employer] 12-30-2023 14:21-0400 SaO2% (BldA) [Mass fraction] 94 % Jose Eboniekola DO Work Phone: [facility] [employer] 12-30-2023 14:21-0400 Systolic blood pressure 131 mm[Hg] Jose Eboniekola DO Work Phone: [facility] [employer] 12-29-2023 04:15-0400 Body height 157.5 cm Jose Yungla DO Work Phone: [facility] [employer] 12-29-2023 04:15-0400 Body mass index (BMI) [Ratio] 33.93 kg/m2 Jose Yungla DO Work Phone: [facility] [employer] 12-29-2023 04:15-0400 Body weight 84.14 kg Jose Gilmore DO Work Phone: [facility] Encounters Encounter Date Encounter Type Care Provider Facility Start: 07-03-2025 ambulatory Marcelino Duran SMITH Jignesh ity:[facility] Start: 05-23-2025 End: 06-10-2025 Evaluation and management of inpatient Tk Conte DO Work Phone: [facility] Cardiac Vascular Progressive Care Unit PCC 1C Start: 05-23-2025 End: 05-23-2025 ambulatory KEYANNA CHARLES [facility] Start: 05-07-2025 End: 05-31-2025 Telephone encounter Joana Pulliam RN [facility] Clinical Communication Comment on above: Appointment Start: 04-30-2025 End: 04-30-[address] [facility] tive Start: 04-28-2025 ambulatory SONU WALKER MD~[id number] [facility] Start: 04-25-2025 End: 04-25-[address] 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) Start: 04-18-2025 End: 04-18-2025 ambulatory HUMAIRA BELL [facility] Start: 04-18-2025 End: 04-18-2025 Office outpatient visit 25 minutes Humaira Bell MD Work Phone: [facility] [place] Comment on above: 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); Vision loss of left eye; Resistant hypertension Start: 04-17-2025 End: 04-17-2025 Emergency department patient visit Chet Jacobsen Anthony DO Work Phone: [facility] EMERGENCY DEPT Comment on above: Vision loss of left eye (Primary Dx) Start: 03-20-2025 End: 03-20-2025 ambulatory SONU WALKER MD~[id number] [facility] Start: 03-18-2025 Encounter for genera l adult medical examination without abnormal findings SONU WALKER MD~[id number] [facility] Start: 03-17-2025 End: 03-17-2025 ambulatory SONU WALKER MD~[id number] [facility] Start: 01-02-2025 End: 01-02-2025 ambulatory SONU WALKER MD~[id number] [facility] Start: 01-09-2024 End: 01-09-2024 Office outpatient visit 15 minutes Roverto Kaur Rebollar DO Work Phone: [facility] ENT Comment on above: Submental abscess (P rimary Dx) Start: 12-31-2023 End: 01-06-2024 Evaluation and management of inpatient Jose Mudrakola DO Work Phone: [facility] Acute Care of the Elderly [facility] 6W Comment on above: Submental abscess (P rimary Dx) Start: 12-30-2023 ambulatory Koki Ornelas RN [facility] Clinical Communication Start: 12-30-2023 Patient encounter procedure Koki Ornelas RN [facility] Clinical Communication Start: 12-28-2023 End: 12-30-2023 Evaluation and management of inpatient Jose Mudrakola DO Work Phone: [facility] Observation Unit 5E Comment on above: Cellulitis of submen feliz space (Primary Dx) Start: 05-17-2017 End: 05-18-2017 Ambulatory MONROE RIMALLISON Facility:[facility] Procedures Date Procedure Procedure Detail Performing Clinician Start: 06-10-2025 Basic metabolic pane l calcium total Iris Baiko DO Work Phone: Start: 06-09-2025 Creatinine other source Raquel Lord MD Work Phone: Start: 06-09-2025 Urnls dip stick/tabl et reagent auto microscopy Raquel Lord MD Work Phone: Start: 06-09-2025 Basic metabolic pane l calcium total Iris Baiko DO Work Phone: Start: 06-08-2025 Basic metabolic pane l calcium total Iris Jessica DO Work Phone: Start: 06-07-2025 Basic metabolic pane l calcium total Iris Del Realko DO Work Phone: Start: 06-06-2025 Basic metabolic pane l calcium total Iris Jessica DO Work Phone: Start: 06-05-2025 Coagulation time activated Iris Del Realko DO Work Phone: Start: 06-05-2025 Coagulation time activated Iris Jessica DO Work Phone: Start: 06-05-2025 Ecg routine ecg w/le ast 12 lds trcg only w/o i&r Garrett Urbina MD Work Phone: Start: 06-05-2025 ANGIOGRAPHY RENAL BILAT Garrett Urbina MD Work Phone: Start: 06-05-2025 INVASIVE VASCULAR PROCEDURE Garrett Urbina MD Work Phone: Start: 06-05-2025 GLOBE CHANGER RENAL VISCERAL ARTERY Garrett Urbina MD Work Phone: Start: 06-05-2025 End: 06-05-2025 POCT ACT Iris Jessica DO Work Phone: Start: 06-05-2025 Basic metabolic pane l calcium total Yobany Cratty DO Work Phone: Start: 06-04-2025 Dup-scan artl carlyn abdl/pel/scrot&/rpr orgn com Mackenzie Chavez PA-C Work Phone: Start: 06-04-2025 Basic metabolic pane l calcium total Yobany Cratty DO Work Phone: Start: 06-03-2025 End: 06-03-2025 Basic metabolic panel calcium total Yobany Cratty DO Work Phone: Start: 06-02-2025 Assay of troponin quantitative Iris Jessica DO Work Phone: Start: 06-02-2025 Ecg routine ecg w/le ast 12 lds trcg only w/o i&r Iris Baiko DO Work Phone: Start: 06-02-2025 Basic metabolic pane l calcium total Yobany Cratty DO Work Phone: Start: 06-01-2025 Basic metabolic pane l calcium total Yobany Cratty DO Work Phone: Start: 05-31-2025 Mri brain brain stem w/o contrast material Amberly Lantigua MD Work Phone: Start: 05-31-2025 Ct head/brain w/o co ntrast material Amberly Lantigua MD Work Phone: Start: 05-31-2025 Basic metabolic pane l calcium total Yobany Cratty DO Work Phone: Start: 05-30-2025 Basic metabolic pane l calcium total Yobany Cratty DO Work Phone: Start: 05-30-2025 Ecg routine ecg w/le ast 12 lds trcg only w/o i&r Yobany Cratty DO Work Phone: Start: 05-30-2025 End: 05-30-2025 Basic metabolic panel calcium total Yobany Cratty DO Work Phone: Start: 05-30-2025 [address] perfusion a nalys ct w/blood flow&volume Yobany Cratty DO Work Phone: Start: 05-30-2025 End: 05-30-2025 Ct angiography head w/contrast/noncontrast Yobany Cratty DO Work Phone: Start: 05-29-2025 Level iii surg patho logy gross&microscopic exam Janeth Vitale MD Work Phone: Start: 05-29-2025 End: 05-29-2025 Teaec w/patch grf carotid vertb subclav neck inc Janeth Vitale MD Work Phone: Start: 09-11-2025 Antibody screen CHARLENE WALKER Comment on above: Performed By: #### L [id number] ####Spun Paste Machine Operator: SHAYY MARROQUIN ([id number])[facility] ([facility])[address] [place] [address] Start: 05-29-2025 ABO and Rh group [Ty pe] in Blood by Confirmatory method Kiara Mario MD Work Phone: Start: 05-29-2025 Basic metabolic pane l calcium total Kiara Mario MD Work Phone: Start: 05-29-2025 Blood typing serologic abo Kiara Mario MD Work Phone: Start: 05-28-2025 Ecg routine ecg w/le ast 12 lds trcg only w/o i&r Kiara Mario MD Work Phone: Start: 05-26-2025 Platelet aggregation in vitro each agent Elizabeth Harris SHOP ROUTER - ENTRY LEVEL MECHANICAL ENGINEER Work Phone: Start: 05-25-2025 C-reactive protein Kenn da Lilo Antonio DO Work Phone: Start: 05-25-2025 Comprehensive metabo lic panel Rik Bah DISTRIBUTOR CLEANER Work Phone: Start: 05-24-2025 Mri brain brain stem w/o w/contrast material Petrona Clemons Dials Work Phone: Start: 05-24-2025 Duplex scan extracra nial art compl bi study Kiara Mario MD Work Phone: Start: 05-24-2025 Comprehensive metabo lic panel Petrona Clemons Dials Work Phone: Start: 05-24-2025 Lipid panel Rik rogers DISTRIBUTOR CLEANER Work Phone: Start: 05-24-2025 Lipid 1996 panel - S onesimo or Plasma Joana Pulliam RN Start: 05-23-2025 Assay of troponin quantitative Nael Gage DISTRIBUTOR CLEANER Work Phone: Start: 05-23-2025 Urnls dip stick/tabl et rgnt auto w/o microscopy Nael Gage DISTRIBUTOR CLEANER Work Phone: Start: 05-23-2025 Ct angiography head w/contrast/noncontrast Tk Conte DO Work Phone: Start: 05-23-2025 End: 05-23-2025 Comprehensive metabolic panel Nael Jhonatan Too DISTRIBUTOR CLEANER Work Phone: Start: 05-23-2025 Ct head/brain w/o co ntrast material Nael Israel Too DISTRIBUTOR CLEANER Work Phone: Start: 05-23-2025 Ecg routine ecg w/le ast 12 lds trcg only w/o i&r Nael Gage DISTRIBUTOR CLEANER Work Phone: Start: 05-23-2025 Thyrotropin [Units/v olume] in Serum or Plasma Joana Pulliam RN Start: 04-20-2025 Comprehensive metabo lic panel Ly Worrell MD Work Phone: Start: 04-19-2025 Mri brain brain stem w/o contrast material Petrona Clemons Dials Start: 04-19-2025 Echo tthrc r-t 2d w/wom-mode compl spec&colr d Petrona M Dials Start: 04-19-2025 Lipid 1996 panel - S onesimo or Plasma Humaira Bell MD Work Phone: Start: 04-19-2025 Comprehensive metabo lic panel Ly Worrell MD Work Phone: Start: 04-19-2025 Lipid panel Petrona Clemons Svetlana ls Start: 04-18-2025 Assay of troponin quantitative Darcy Borrego SHOP ROUTER - ENTRY LEVEL MECHANICAL ENGINEER Work Phone: Start: 04-18-2025 Ct angiography head w/contrast/noncontrast Darcy Borrego SHOP ROUTER - ENTRY LEVEL MECHANICAL ENGINEER Work Phone: Start: 04-18-2025 Comprehensive metabo lic panel Darcy Borrego SHOP ROUTER - ENTRY LEVEL MECHANICAL ENGINEER Work Phone: Start: 04-18-2025 Ecg routine ecg w/le ast 12 lds trcg only w/o i&r Darcy Borrego SHOP ROUTER - ENTRY LEVEL MECHANICAL ENGINEER Work Phone: Start: 04-17-2025 Ct head/brain w/o co ntrast material [facility] Work Phone: Start: 04-17-2025 C-reactive protein Víctor anil Jody Rios DO Work Phone: Start: 04-17-2025 Sedimentation rate r bc automated Phil Rios DO Work Phone: Start: 01-06-2024 Comprehensive metabo lic panel Mark Fernandez MD Work Phone: Start: 01-05-2024 Comprehensive metabo lic panel Mark Fernandez MD Work Phone: Start: 01-04-2024 Comprehensive metabo lic panel Mark Fernandez MD Work Phone: Start: 01-02-2024 Culture bacterial an y source anaerobic iso&id Roverto Kaur Rebollar DO Work Phone: Start: 01-02-2024 End: 01-02-2024 I&d deep absc/hmtma soft tissue neck/thorax Rovertopreethi Alejandral DO Work Phone: Start: 01-01-2024 Basic metabolic pane l calcium total Jamel Westbrook PA-C Work Phone: Start: 12-31-2023 Ct soft tissue neck w/contrast material James Avalos MD Work Phone: Start: 12-31-2023 Basic metabolic pane l calcium total James Avalos MD Work Phone: Start: 12-31-2023 Ecg routine ecg w/le ast 12 lds trcg only w/o i&r James Avalos MD Work Phone: Start: 12-29-2023 Basic metabolic pane l calcium total Mani Sanchez MD Work Phone: Start: 12-29-2023 SARS-CoV-2 (COVID-19 ) Ag [Presence] in Respiratory specimen by Rapid immunoassay Mani Sanchez MD Work Phone: Start: 12-29-2023 Bacteria identified in Blood by Culture Jose Gilmore DO Work Phone: Start: 12-28-2023 Ct soft tissue neck w/contrast material Jose Barraganjackie DO Work Phone: Start: 12-28-2023 Basic metabolic pane l calcium total Jose Gilmore DO Work Phone: Plan of Treatment Date Care Activity Detail Author Start: 05-24-2030 Lipid panel [facility] Start: 04-19-2030 Lipid panel Lipid Panel [facility] Start: 05-23-2026 Thyroid stimulating hormone measurement [facility] Start: 07-16-2025 End: 07-16-2025 ambulatory [facility] [place] Start: 07-09-2025 End: 07-09-2025 Patient encounter procedure 07/09/2025 10:30 AM EDT Office Visit [facility] [address] [place] [phone] Vance Kimble MD [address] [place] [address] [facility] Start: 06-26-2025 End: 06-26-2025 ambulatory [facility] Start: 06-26-2025 End: 06-26-2025 Patient encounter procedure 06/26/2025 11:00 AM EDT Office Visit [facility] [address] [place] [phone] Roe Alfaro PA-C [address] [place], [place] [id number] [facility] Start: 06-11-2025 End: 06-11-2025 Patient encounter procedure 06/11/2025 9:45 AM EDT Office Visit [facility] [place] [address] [place] [phone] Janeth Vitale MD [address] [place] [address] [facility] [place] Start: 05-19-2025 COVID-19 Vaccine ( season) COVID-19 Vaccine ( season) [facility] Start: 05-19-2025 Influenza vaccination Influenza Vacc ine (#1) [facility] Start: 05-19-2025 [facility] Start: 04-18-2025 End: 04-18-2025 Patient encounter procedure 04/18/2025 10:40 AM EDT Appointment [facility] [place] [address] [place] [phone] Humaira Bell MD [address] [place] [address] [facility] [place] Start: 09-18-2024 Medicare Advantage Annual Wellness Visit Medicare Advantage Annual Wellness Visit [facility] Start: 09-18-2024 [facility] Start: 05-19-2024 COVID-19 Vaccine ( season) COVID-19 Vaccine ( season) [facility] Start: 05-19-2024 Influenza vaccination Influenz a Vaccine (Season Ended) [facility] Start: 01-09-2024 End: 01-09-2024 Patient encounter procedure 01/09/2024 9:15 AM EDT Office Visit [facility] [address] [place] [phone] Roverto Rebollar DO [address] [place] [address] [facility] Start: 09-18-2023 Medicare Advantage Annual Wellness Visit Medicare Advantage Annual Wellness Visit [facility] Start: 05-19-2023 COVID-19 Vaccine ( season) COVID-19 Vaccine ( season) [facility] Start: 2017 RSV Immunization for Adults (1 - 1-dose 75+ series) RSV Immunization for Adults (1 - 1-dose 75+ series) [facility] Start: 2017 [facility] Start: 2002 RSV Immunization age d 60 or older (1 - 1-dose 60+ series) RSV Immunization aged 60 or older (1 - 1-dose 60+ series) [facility] Start: 1992 Zoster Vaccines (1 o f 2) Zoster Vaccines (1 of 2) [facility] Start: 1992 [facility] Start: 1961 DTaP/Tdap/Td Vaccine s (1 - Tdap) DTaP/Tdap/Td Vaccines (1 - Tdap) [facility] Start: 1961 [facility] Start: 1954 Depression Screening Depression Scre ening [facility] Start: 1954 [facility] Start: 1942 Lipid panel Lipid Panel [facility] Start: 1942 Screening for osteoporosis [facility] Start: 1942 Thyroid stimulating hormone measurement TSH Level [facility] Aerobic and Anaerobi c Culture with Stain [facility] Work Phone: Comment on above: Release Upon Orderin g for 1 Occurrences starting 01/02/2024 Bacteria identified in Blood by Culture [facility] Work Phone: Bacteria identified in Unspecified specimen by Anaerobe culture Anaerobic culture Microbiology Routine Submental abscess 01/02/2024 7:44 AM EDT [facility] End: 04-18-2025 ECG 12 lead if not done in the ED ECG 12 lead if not done in the ED CV ECG Routine Once for 1 Occurrences starting 04/18/2025 until 04/18/2025 [facility] Work Phone: Comment on above: Once for 1 Occurrenc es starting 04/18/2025 until 04/18/2025 End: 04-18-2025 OUTSIDE PROCEDURE SCAN OUTSIDE PROCEDURE SCAN Procedures Once for 1 Occurrences starting 04/18/2025 until 04/18/2025 [facility] Comment on above: Once for 1 Occurrenc es starting 04/18/2025 until 04/18/2025 End: 06-04-2025 Renin Activity [facility] Work Phone: Renin Activity [facility] Immunizations Immunization Date Immunization Notes Care Provider Fa sabihaty 05-04-2021 pneumococcal conjuga te vaccine, 13 jah Ornelas RN [facility] [employer] 03-05-2019 pneumococcal polysac charide vaccine, 23 jah Ornelas RN [facility] [employer] Payers Date Payer Category Payer Self-pay 2007 Medicare HEALTH PLAN OF [employer] [place] MED[employer] MEDICARE ADVANTAGE [id number] 2007-Present [address] [place] [address] Medicare HMO [id number] 2007 Medicare HMO [id number] 1959 Unknown [id number] 1942 Unknown [id number] 1942 Unknown [id number] 1942 Unknown [id number] 1942 Unknown [id number] Social History Date Type Detail Facility Start: 1956 End: 05-26-2025 Tobacco smoking status DEIS Smokes tobacco daily [facility] Start: 1958 History of tobacco use Cigarette Smo ker [facility] [employer] Start: 12-29-2023 End: 05-24-2025 Cigarettes smoked current (pack per day) - Reported 1 [facility] [employer] Start: 12-29-2023 End: 05-26-2025 Tobacco use and exposure Smokeless tobacco non-user [facility] Start: 12-29-2023 End: 06-09-2025 Alcohol intake Ex-drinker (finding) [facility] Start: 12-29-2023 End: 05-24-2025 [facility] Utilities [facility] Has the [employer], oil, or water company threatened to shut off services in your home in past 12Mo No [facility] Do you belong to any clubs or organizations such as baptist groups, unions, fraternal or athletic groups, or school groups? Yes [facility] Are you now , , , , never or living with a partner? [facility] How often to you hav e a drink containing alcohol? Never [facility] How many standard dr inks containing alcohol do you have on a typical day? Patient does not drink [facility] How hard is it for y ou to pay for the very basics like food, housing, medical care, and heating Not very hard [facility] Do you feel stress - tense, restless, nervous, or anxious, or unable to sleep at night because your mind is troubled all the time - these days [OSQ] Only a little [facility] (I/We) worried wheth er (my/our) food would run out before (I/we) got money to buy more. Never true [facility] Start: 1940 Sex Assigned At Not on file [facility] Start: 04-18-2022 Sex Female (finding) [facility] Do you feel stress - tense, restless, nervous, or anxious, or unable to sleep at night because your mind is troubled all the time - these days [OSQ] Not at all [facility] How often do you nee d to have someone help you when you read instructions, pamphlets, or other written material from your doctor or pharmacy [SILS] Often [facility] Start: 05-26-2025 Tobacco Comment 05/26/25 Started smoking age 18, smokes 0.5-1ppd, depending. No vape history of use. [facility] Medical Equipment Procedure Code Equipment Code Equipment Origin al Text Equipment Identifier Dates [id number] Start: 05-29-2025 [id number] Start: 05-29-2025 [id number] Start: 06-05-2025 Functional Status Date Assessment Result Facility 05-24-2025 Total score [AUDIT-C] [facility] 04-17-2025 Total score [AUDIT-C] 0 04/17/20 9:28 AM EDT Rita Paredes RN [facility] Clinical Notes 12-28-2023 to 06-10-2025 Annamarie Jorge RN - 06/10/2025 4:52 PM EDTAjermaine Jorge RN - 06/10/2025 3:57 PM EDTYahaira Medrano RN - 06/06/2025 1:30 AM Bernard Sandy RN - 05/31/2025 4:16 AM EDTDischarveena InstructionsAppointments Note Date & Type Note Facility 06-10-2025 Note [facility] 06-10-2025 Nurse Note Report called to [facility], transportation here to take pt. All belongings packed and with pt. Iv removed. Packet given to transportation. Tried to call [facility] for report, got busy signal. Will try again in a few minutes This RN and second RN in patient room for removal of femoral sheath. Vitals remained stable throughout procedure (see flowsheet), quick clot applied, pressure held and distal pulses checked. No complications during this time. No hematoma. Dressing applied. Patient resting comfortably. Call light within reach. Care is ongoing. 04:00 Pts BP cuff alarming d/t a reading of 200/75. When attempting to retake pressure pt becoming highly agitated with all the frequent BP we are taking. Pt refusing to keep arm and body still for each BP reading. Artline has a reading of 142/33 with a good waveform. CLAUDETTE Crain notified and instructed to base BP reading off of artline. Patient awake sitting up in the bed. Much more alert this afternoon but does still seem a little sleepy. She is moving her eyes a little more when asked. She did also turn her head to the left a little which is more than earlier. Ate some jello but does not want anything else. She said she feels like she chokes on regular soft foot. Dr Whitney aware. Responses that doctors messaged are all ok with blood pressure Patient sleeping. Niece at bedside and updated. Message sent to Devonte Norton and Dr Greco regarding what if they want asa, plavix and lovenox and also about blood pressure running 127/42. Await response. Messaged all to be on the same page MRI called and they do not need the form filled out again since patient just had MRI couple days ago. They are aware of recent carotid endarterectomy Patient in bed. Patient is unable to read anything on the NIH cards. She states that she cannot see them well. She can see black letters but that is it. Repositions her self in the bed independently. Attempted to wean the oxygen but she dropped to 87%. Put back on 2L. Bed alarm on for safety 00:15 Pt put earth observations chief scientist light d/t having an episode of incontinence. ROBERT liriano answered light and told pt we would be be in to change her in several minutes due to us changing another pt at that moment. Pt was AOX4 when RN spoke with her. 00:25 upon entering the room pt had slurred speech and a new R facial droop that was not present for my prior assessments, with an NIH of 3, due to her R eye blindness. Rapid team paged and pt given and NIH of [address] pt scored an NIH 12. 01:45 Pt back to unit and has an NIH of 12. Failed swallow exam and is NPO. Continue Q4 NIH. CLAUDETTE Bah updated. 05:05 PT NIH score of 5. Vascular and primary updated. Wound Care consulted for Pressure Injury Prevention. Pt's Allen= 19, pt is no longer at risk at this time. Skin Care Precaution order set in place. Dietitian consult in place. PT/OT consults in place. Will continue to follow peripherally. Please vocera or secure chat message with any questions. Jael Nation RN, BSN Notified by NA assisting pt in bathroom for assistance. Upon assessment, pt aphasic and dysarthric. Pt sitting on toilet. Vitals obtained. BP 99/72. Pt assisted to wheelchair and placed in bed with assistance of another RN and NA. Pt placed in reverse trendelenburg. NS @ 50 continuously. Pt sx resolved once placed in bed. NIH unchanged from initial assessment. NIH 4 for b/l hemianopia and question. Recheck of BP 164/72. R pupil 4 mm, sluggish reaction. L pupil 3 mm and brisk. Pt seen by ophthalmology on 05/24. Pt pupils dilated on initial assessment. Rapid notified of episode. Rik Bah NP notified. New orders placed for lab work. documented in this encounter [facility] 06-10-2025 Miscellaneous Notes Patient Choice Patient Name: DIANA KOHLI Date of : 1940 All Providers Sent Referral Name: [facility] Phone: [phone] Address: [address] [id number] Name: [facility] Address: [address] [place] [address] Discharge order obtained and MARISSA completed. [facility] called the patient's niece Martha who stated she was unable to transport the patient at discharge. [facility] spoke with the patient regarding WC transport and she was agreeable to pay any applicable insurance copay for the transport. [facility] set up transport in [employer] which was confirmed for 5 pm. [facility] updated bedside RN, [facility] via [employer], refinery operator helper cracking unit and patient to transport time. [facility] tasked [facility] to send DC paperwork to [facility]. MAR transmitted to [facility] via [facility] [facility] per TCC request. Electronically signed by [facility] Bj Ambrose Care Management Progress Note Short Medical why still here: Medically stable. Awaiting insurance auth for [facility]. Planned Discharge Disposition: Inpatient Rehab Facility Barriers/Today we still Wait: Facility pre-cert Length of Stay (Days): 16 GMLOS: 4.9 Epic reviewed. TCC sent communication in [employer] and text to [facility] liaison to request update on pending insurance auth status. Will continue to follow. Insurance auth obtained but discharge plan on hold as Nephrology noted would prefer to wait till tomorrow if possible given worsening real function. IV fluids initiated and plan for UA collection. [facility] liaison is aware. TCC spoke with the patient to introduce self/role and reviewed the auth approval. She asked that TCC update her niece Martha and TCC did so. Martha stated she would like to transport the patient to [facility] at discharge if she is able so will await TCC calling her when the discharge order is given to see if that can be arranged. Care Management Progress Note Short Medical why still here: medically stable Planned Discharge Disposition: Inpatient Rehab Facility Barriers/Today we still Wait: Clinical stability, Facility pre-cert Length of Stay (Days): 14 GMLOS: 4.9 Weekend task and electronic chart reveiwed. Reached out to [facility] liaison via [employer] for update on insurance auth. Per liaison, "auth still pending and she will let me know as soon as she hears something". Patient unable to discharge to [facility] today. MAR transmitted to Rehab [facility] via [facility] per TCC request. Transport placed in will call in [employer]. [facility]. Task to HIGH SCHOOL HOME ECONOMICS TEACHER to put transport to [facility] in Will Call. Task to HIGH SCHOOL HOME ECONOMICS TEACHER to transmit MAR to [facility]. If auth approved after I leave for the day national secretary will set up transportation. Per Attending if auth approved today he will put in discharge. Care Management Progress Note Short Medical why still here: Angiogram/MOLLY completed yesterday. Will need updated PT OT notes for insurance auth. Planned Discharge Disposition: Inpatient Rehab Facility [facility]. Barriers/Today we still Wait: Clinical stability, Facility pre-cert Length of Stay (Days): 13 GMLOS: 4.9 Request in for PT OT to please see today. Once notes are in [facility] Print Shop Stenographer will submit for insurance auth. Care Management Progress Note Short Medical why still here: Continue monitoring BP. [facility] Planned Discharge Disposition: Inpatient Rehab Facility Barriers/Today we still Wait: Clinical stability Length of Stay (Days): 12 GMLOS: 4.9 Per Cardiology-Plan for angiogram today. Care Management Progress Note Short Medical why still here: Once BP is controlled. Will need prior auth for [facility]. Planned Discharge Disposition: Inpatient Rehab Facility Barriers/Today we still Wait: Clinical stability, Facility pre-cert Length of Stay (Days): 11 GMLOS: 4.9 Care Management Progress Note Short Medical why still here: Will need updated PT OT notes to submit to insurance for [facility] Auth. Request in for PT OT to please see today. Planned Discharge Disposition: Inpatient Rehab Facility Barriers/Today we still Wait: Clinical stability, Facility pre-cert Length of Stay (Days): 10 GMLOS: 4.9 Completed Medicaid application with Patient and sent by email to @[email or web address]. [place] to sign and send back to DETAIL TECHNICIAN. [facility] will have Patient sign the last page and fax or email to [facility]. Care Management Progress Note Short Medical why still here: Transferred to s/p left carotid endarterectomy with patch graft application 05/29/2025. Remains for IV BP PRN for BP control, therapy evals, neph consult. Planned Discharge Disposition: Inpatient Rehab Facility ([facility]) Discussed with [facility] and [facility], will start facility precert for [facility] once patient closer to discharge. Pending nephrology consult and BP control. Addendum: Spoke with Piper [phone] regarding discharge planning. Introduced myself and role. Updated on discharge planning. Notified SWPiper would like to discuss [facility] referral. Barriers/Today we still Wait: Administering IV medications, Clinical stability, Senior Maintenance Machinist recommendations (comment) IV BP PRN for BP control, therapy evals, neph consult. Length of Stay (Days): 9 GMLOS: 1.9 Case management will continue to follow for discharge planning. Care Management Progress Note Short Medical why still here: Transferred to s/p left carotid endarterectomy with patch graft application 05/29/2025. Remains for stroke team early this morning (05/30), frequent neuro exams, post-op therapy evals, NPO, O2 wean, IV BP PRN for BP control. Planned Discharge Disposition: Inpatient Rehab Facility ([facility]) FOC per prior CM notes is [facility]. Referral in [facility], facility accepting. Will need facility precert prior to discharge. Patient will need updated PT/OT post op for facility precert. Due to stroke team today, CM will request updated therapy notes for 06/01 or 06/02 for facility precert. Barriers/Today we still Wait: Administering IV medications, Clinical stability, Senior Maintenance Machinist recommendations (comment) stroke team 05/30, frequent neuro exams, post-op therapy evals, NPO, O2 wean, IV BP PRN for BP control Length of Stay (Days): 6 GMLOS: 2.3 Case management will continue to follow for discharge planning. Rapid Response In-Hospital Stroke Team Stroke Team Initiated by: PAPERHANGER AND PAINTER at 0036 Location of In-Hospital Stroke Team Activation: [facility] 130 Onset of symptoms witnessed: No Last known well: 05/30/2025 at 0015 Symptoms: Facial droop, slurred speech, ataxia, visual disturbance, left extremity weakness NIH Stroke Score: 1A: Level of Consciousness 0 [x] Alert; keenly responsive 0 [] Arouses to minor stimulation +1 [] Requires repeated stimulation to arouse +2 [] Movements to Pain +2 [] Postures or Unresponsive +3 1B: Ask Month and Age 0 [x] Both Questions Right 0 [] 1 Question Right +1 [] 0 Questions Right +2 [] Dysarthric/Intubated/ Trauma/Language Barrier +1 [] Aphasic +2 1C: 'Blink Eyes' & 'Squeeze Hands' 1 [] Performs Both Tasks 0 [x] Performs 1 Task+1 [] Performs 0 Tasks+2 2: Horizontal Extraocular Movements 2 [] Normal 0 [] Partial Gaze Palsy: Can Be Overcome +1 [] Partial Gaze Palsy: Corrects with Oculocephalic Reflex +1 [x] Forced Gaze Palsy: Cannot Be Overcome +2 3: Visual Sharma 2 [] No Visual Loss 0 [] Partial Hemianopia +1 [x] Complete Hemianopia +2 [] Patient is Bilaterally Blind +3 [] Bilateral Hemianopia +3 4: Test Facial Palsy 1 (Use Grimace if Obtunded) [] Normal symmetry 0 [x] Minor paralysis (flat nasolabial fold, smile asymmetry) +1 [] Partial paralysis (lower face) +2 [] Unilateral Complete paralysis (upper/lower face) +3 [] Bilateral Complete paralysis (upper/lower face) +3 5A: Left Arm Motor 2 [] Amputation/Joint Fusion 0 [] No Drift for 10 Seconds 0 [] Drift, but doesn't hit bed +1 [] Drift, hits bed +2 [x] Some Effort Against Sunflower +2 [] No Effort Against Sunflower +3 [] No Movement +4 5B: Right Arm Motor 0 [] Amputation/Joint Fusion 0 [x] No Drift for 10 Seconds 0 [] Drift, but doesn't hit bed +1 [] Drift, hits bed +2 [] Some Effort Against Sunflower +2 [] No Effort Against Sunflower +3 [] No Movement +4 6A: Left Leg Motor 1 [] Amputation/Joint Fusion 0 [] No Drift for 5 Seconds 0 [x] Drift, but doesn't hit bed +1 [] Drift, hits bed +2 [] Some Effort Against Sunflower +2 [] No Effort Against Sunflower +3 [] No Movement +4 6B: Right Leg Motor 0 [] Amputation/Joint Fusion 0 [x] No Drift for 5 Seconds 0 [] Drift, but doesn't hit bed +1 [] Drift, hits bed +2 [] Some Effort Against Sunflower +2 [] No Effort Against Sunflower +3 [] No Movement +4 7: Limb Ataxia 1 [] Amputation/Joint Fusion 0 [] Does Not Understand 0 [] Paralyzed 0 [] No Ataxia 0 [x] Ataxia in 1 Limb +1 [] Ataxia in 2 Limbs +2 8: Sensation 0 [x] Normal; No sensory loss 0 [] Mild-Moderate Loss: Less Sharp/More Dull +1 [] Mild-Moderate Loss: Can Sense Being Touched +1 [] Complete Loss: Cannot Sense Being Touched At All +2 [] No Response and Quadriplegic +2 [] Coma/Unresponsive +2 9: Language/Aphasia 0 Normal; No aphasia 0 [] Mild-Moderate Aphasia: Some Obvious Changes, Without Significant Limitation +1 [] Severe Aphasia: Fragmentary Expression, Inference Needed, Cannot Identify materials +2 [] Mute/Global Aphasia: No Usable Speech/Auditory Comprehension +3 [] Coma/Unresponsive +3 10: Dysarthria 1 [] Intubated/Unable to Test 0 [] Normal 0 [x] Mild-Moderate Dysarthria: Slurring but can be understood +1 [] Severe Dysarthria: Unintelligible Slurring or Out of Proportion to Dysphasia +2 [] Mute/Anarthric +2 11: Extinction/Inattention 1 [] No abnormality 0 [x] Visual/tactile/auditory/spatial/perso nal inattention +1 [] Extinction to bilateral simultaneous stimulation +1 [] Profound rasheeda-inattention (ex: does not recognize own hand) +2 [] Extinction to >1 modality +2 NIH score is 12. Pupil Assessment: Left: Size (mm): [] [] [x] [] [] [] [] [] [] [] 0 1 2 3 4 5 6 7 8 9 Shape: [x] Round [] Oval [] Other Reaction: [x] Brisk [] Sluggish [] Nonreactive [] Unable to assess [] Other Right: Size (mm): [] [] [x] [] [] [] [] [] [] [] 0 1 2 3 4 5 6 7 8 9 Shape: [x] Round [] Oval [] Other Reaction: [x] Brisk [] Sluggish [] Nonreactive [] Unable to assess [] Other Neurology Response: Resident and In-person, 12:37 AM Stroke Outcome: No intervention (No thrombolytic/No thrombectomy). Ok to remain on 1C Handoff to: bedside nurse Patient's POA updated via phone call. Dr. Vitale at bedside to see patient. No new orders. Dr. Toney and Dr. Mario called to bedside to evaluate patient. Patient's blood pressure was below parameters( see flow sheet) plus during neuto assessment patient's left arm was weaker and noted droop on right side of mouth. Fluid bolus ordered per Dr. Toney and he gave patient medication. No new orders from Dr. Mario at this time. OPERATIVE REPORT DATE OF SERVICE: 05/29/2025 PRE-PROCEDURE DIAGNOSIS: Symptomatic left carotid stenosis of >60% POST-PROCEDURE DIAGNOSIS: As above PROCEDURE PERFORMED: Left carotid endarterectomy with bovine pericardial patch angioplasty SURGEON: Janeth Vitale MD ASSISTANTS: Kiara Mario MD (PGY-3) FINDINGS: Calcified plaque at the proximal internal carotid artery. The patient awakened neurologically intact with the exception of her fixed visual deficits. ANESTHESIA: General ESTIMATED BLOOD LOSS: 200 ml ml COMPLICATIONS: None SPECIMENS: Left carotid plaque IMPLANTS: Xenosure bovine pericardial patch angioplasty WOUND CLASS: 1 INDICATIONS FOR PROCEDURE: The patient is an 84-year-old female who approximately 1 month ago presented with left eye amaurosis fugax. Vascular surgery was not involved at that admission. She then presented with right amaurosis fugax for this hospital admission. She has undergone workup for carotid artery disease which has revealed severe stenosis on the left and mild stenosis on the right. She was also found to have a "shaggy" aorta, which may be the source of her amaurosis. We discussed that no intervention would change her already present symptoms however given the appearance of the severe stenosis on the left, discussion was had regarding intervention versus medical management. After an extensive discussion with the patient as well as her POA and niece Piper, she elected to proceed with carotid endarterectomy on the left. No intervention was felt necessary on the right. PROCEDURE IN DETAIL: The patient was taken to the operating room and placed in the supine position. General anesthesia was induced. Perioperative antibiotics of Ancef were administered. The patient was then positioned with her left neck exposed and prepped and draped in usual sterile fashion. A timeout was performed verifying the correct patient, side, site, and procedure to be performed. An incision was made just anterior to the sternocleidomastoid muscle on the left using a 10 blade scalpel. Dissection was carried down through the subcutaneous tissues using electrocautery. The platysma was encountered and incised along the length of the incision. Dissection was continued until the carotid sheath was identified. This was then incised carefully using Metzenbaum scissors and the internal jugular vein was identified. The internal jugular vein was then cleared of surrounding tissues proximally and distally until the confluence of the facial vein and internal jugular vein was identified. The facial vein was then doubly ligated with silk ties and transected. The common carotid artery was then cleared of surrounding tissues. The vagus nerve was identified and carefully preserved. A vessel loop was placed around the common carotid artery for proximal control. Next, the common carotid artery was followed cephalad. The external carotid artery and superior thyroid arteries were identified. A vessel loop was then placed around the external carotid artery for control and the superior thyroid artery was temporarily controlled with a hemoclip that was removed at case completion. The patient was then given 9,000 units of heparin for systemic anticoagulation. The internal carotid artery was identified and cleared of surrounding tissues cephalad. An area above the level of disease was identified and deemed clampable. The hypoglossal nerve was identified and preserved. A vessel loop was then placed for distal control. After was confirmed 3 minutes had passed since heparin administration, a karchner clamp was placed at the distal internal carotid artery, a Aldo hydrogrip at the common carotid artery, and the Vesseloop was tightened around the external carotid artery. Using an 11 blade scalpel, an arteriotomy was created in the anterior surface of the common carotid artery and extended using Dennis scissors. Once above the level of the disease, a Sundt shunt was placed first in the internal carotid artery followed by the common carotid artery and in circulation held in place by Jose clamps proximally and distally. Of note, there was backbleeding noted from the internal carotid artery. Doppler confirmed flow through the shunt. We next proceeded with endarterectomy. Using a freer elevator, the plaque was removed from the common carotid artery, internal carotid artery, and eversion endarterectomy was performed of the external carotid artery. The external carotid artery was then flushed with heparinized saline and the vessel loop used for control. Distally, the distal endpoint of the endarterectomy was feathered. 7-0 Prolene tacking sutures were placed to ensure no flap would form. The plaque was removed and sent to pathology as specimen. The plaque appeared to be calcific in nature. Once the vessel was sufficiently endarterectomized and there was no remaining debris, we proceeded with performing the patch anastomosis. Using 6-0 Prolene suture in a running fashion, the patch anastomosis was created between a bovine pericardial patch and the internal and common carotid arteries. Prior to completion of the patch, the shunt was removed and backbleeding and forward bleeding was allowed in order to vent the artery of air and debris. The artery was then flushed with heparinized saline, and the patch anastomosis was completed. Following completion of the patch, the common carotid artery was opened followed by the external carotid artery and then the internal carotid artery. Doppler was used to confirm flow through the repair with appropriate Doppler signals obtained distal to the patch on the internal carotid artery as well as in the external carotid artery. Intraoperative ultrasound was performed which showed no distal flap formation and good color flow through the repair. Hemostasis was achieved and the patient was given 40 mg of protamine for reversal of systemic anticoagulation. We then proceeded with closure. 3-0 Vicryl suture in a running fashion was used to reapproximate the platysma. 4-0 Monocryl suture was then run in a subcuticular fashion at the skin. Dermabond skin glue was placed as sterile dressing. All sponge and needle counts were correct at the conclusion of the case. The patient was then awakened from general anesthesia and transferred to the recovery area in stable condition. She remained neurologically intact with the exception of her fixed visual deficits at the conclusion of the case. Janeth Vitale MD Vascular Surgery [facility] rehab is the FOC per the louis hcpoa- she does have a snf list for back up - [facility] has accepted pending auth and medical stability , OR vascular today .. Please call patient louis Hamilton (POA) with updates Care Management Progress Note Short Medical why still here: new plan is for vascular surgery = [facility] following and louis has the snf list and did visit for back up snf options , No FOC yet confirmed for snf. [facility] is FOC . For now Planned Discharge Disposition: Inpatient Rehab Facility [facility] Barriers/Today we still Wait: Procedure (comment) (vascualr OR ) Length of Stay (Days): 4 GMLOS: 2.3 Care Management Progress Note Short Medical why still here: family need to speak to vascular for decision on possible surgery Monday or not. Per hcpoa- martha myers, FOC is [facility] . Accepted , will need auth Martha hamilton [facility]- [phone] Planned Discharge Disposition: Inpatient Rehab Facility [facility] rehab marissa need done- auth needed Back up snf choices family did visit yesterday , no FOC for back up Resources given for medicaid , and future needs at bedside , family has a elder consumer attorney to assist as well Barriers/Today we still Wait: Administering IV medications, Senior Maintenance Machinist recommendations (comment), Procedure (comment) (may need OR if family choose- cant do till monday) Length of Stay (Days): 3 GMLOS: 2.3 Referral placed to [facility] Lopez via [facility]port per TCC request. Await review and response regarding ability to accept. TCC notified. Updated the louis [facility] about the snf vs acute rehab options., no FOC yet . Per vascular may need surgery if agreeable can not do till Monday . they will call the niece and update her . Tx team updated. Referrals sent Met with patient and discussed Neurology follow up. She requests I call Piper CHAMBERS (Maggie)/her niece to coordinate follow up. I called Piper and follow up appointment scheduled. Jun 26 Hospital Follow Up with Roe Alfaro PA-C Jun 11:00 AM Please arrive 15 minutes prior to appointment, bring insurance card and photo ID. [facility] - [place] [id number] [facility] [id number] Arrive at: [facility] Referral placed to [facility] [place] via [facility]port per TCC request. Await review and response regarding ability to accept. TCC notified. remelt worker made a referral to [facility] via their website. remelt worker made a referral to [facility] as well - emailed Ally Hogan (who is filling in for Tami at the moment). Niece given a Medicaid application and social media director let her know I could offer assistance if needed in filling it out/faxing the form. Met with niece- , need more referrals and hydraulic jack operator tasked , given medicaid application . Referral placed to [facility] via [facility]port per TCC request. Await review and response regarding ability to accept. TCC notified. Care Managment Initial Assessment Date: 05/26/2025 Patient Name: Diana Kohli : 1940 Patient Information Source of Information: Cognition/Language: citizen of [place] Permission given to speak with patient telephone claims representative/caregiver as indicated: Confirmation of Payer with patient/family: Payer Name: thp : na Confirmation of Primary Care Physician: Charlene Walker MD Primary Caregiver: self If assistance needed, confirmed caregiver ready, willing and able to care for patient at discharge: Yes Confirmed with: niece hcpoa Living Arrangements Current Residence: alone Number of Floors single floor Number of Entry Steps: 3 - laundry in basement Bed/Bath Levels: 1 level Facility: na Facility Name: Plan to Return: na Lives with: Alone Support Systems: Family members, Friends/neighbors Activities of Daily Living Ambulation: walker Bathing/Dressing: self Elimination/Continence/Toileting: self Feeding: self Who Assists with Activities of Daily Living: Self Instrumental Activities of Daily Living Prescription Coverage: [id number] - [place], [place] - [address] [facility] [address] Pharmacy Used: Medication Management: self Transportation/Shopping: Dtr Transportation Mode: car Needs Assistance with Transportation at Discharge: niece Meal Preparation: self Laundry/Cleaning: self Finances/Bill Paying: self Communication: [place] - AND [employer] Types of Care Services/Equipment Utilized Care Services: cane Dialysis Type: na Durable Medical Equipment: Cane rarely C active vs snf Patient's Goal/Discharge Plan Patient expects to be discharged to: home VS SNF LIST GIVEN Discharge Planning Actions: Patient's Choice Rights and [employer] and Collaborative Relationships Disclosed as Indicated for Post-Acute Care: Interdisciplinary Team Engagement: Social Work Referral for: Resources Additional Information: From home alone, has pcp , script coverage and dme. NIECE assists as needed- dtr called and wants SNF list- and resource=- THP list given and medicare star ratings discussed /summa collaborative, PT/OT requested today to sese- may be ready for discharge - will confirm in IDR. Vascular signed off. Met with niece- referrals to be sent to snfs- she has concerns about loss of vision , and needs auto brake mechanic need SW for resources and medicaid , Rocio Campos RN Notified of pt with syncopal episode in bathroom and worsening of stroke like symptoms which resolved upon getting pt back to bed. Bedside RN restarted ordered IV fluids and informing covering provider for further orders. Pts VSS No further PAPERHANGER AND PAINTER intervention needed at this time. Bedside RN to call with further concerns Patient is okay for CT scans with contrast, previously known low GFR. Tk Conte DO 05/23/252131 documented in this encounter [facility] 06-10-2025 History of Present illness Narrative Images from the original note were not included. PHYSICAL THERAPY [facility] Treatment Note Name/MRN: Diana Kohli ([id number]) Date of : 1940 Age: 84 y.o. Room/Bed: 1C-130/1C-130 A Discharge Recommendation: IP Rehab Other: TBD Assessment Pt requires min assist to CGA for ambulation and transfers, CGA for bed mobility. No PT goals met this session. Pt with decreased vision and requires verbal cues for mobility. Recommend IP Rehab at discharge. Subjective Pt is supine in the bed, agrees to PT. Pain: Pt denies any current pain. Medical Precautions: No active isolations Proper PPE donned/doffed in accordance with facility standards. Fall Risk: Ny Fall Risk Score: 60 (Medium Risk) Ny Fall Risk Score: 60 (High Risk) Precautions/Restrictions: Seizure, Skin and Fall Precautions Overall Cognitive Status: WFL Overall Orientation Status: Oriented x4 Family/Caregiver Present: none Objective Bed Mobility Supine to sit: SBA Sit to supine: SBA Rolling to right: SBA Use of bed rail(s) Transfers/Mobility Sit to stand: Contact Guard Stand to sit: SBA Verbal cues for hand placement X 2 reps from EOB X 1 rep from toilet Ambulation Ambulation 1 Assistive device(s) used: Front wheeled walker Assist level: Contact Guard, Min Assist Distance (ft): 65 ft x 2 Quality of gait: verbal cues to maneuver FWW secondary to decreased vision Balance During Session: Pt stood at sink to wash/dry hands with CGA to SBA Exercises Exercises Hip Flexion: Seated x10 BLE Knee Long Arc Quad: Seated x10 BLE Ankle Pumps: Seated x10 BLE Plan Continue acute PT per plan of care. Safety/Education Safety Safety Devices in place: All fall risk precautions in place, call light within reach, left in bed, bed alarm in place, and patient at risk for falls Restraints: No Education Education Given To: patient Education Provided: PT Role, PT Goals, Gait Training, Plan of Care, Transfer Training, and Discharge Recommendations Education Method: Verbal Barriers to Learning: None Education Outcome: Verbalized Understanding and Continued Education Needed Outcome Measures AM-PAC AM-PAC Inpatient Mobility Raw Score (No Stairs) : 18 JH-HLM JH-HLM Scale: Walked 25 ft or more (i.e. walked outside of room) Goals Patient Stated Goal: To be as Indep as possible Encounter Problems Encounter Problems (Active) Balance Patient will maintain dynamic standing balance for 2 minutes with modified independence in order to demonstrate decreased risk of falling. (Progressing) Start: 05/24/25 Expected End: 06/21/25 Mobility Patient will ambulate 50 feet with modified independence and rolling walker in order to improve safety and independence with mobility. (Progressing) Start: 05/24/25 Expected End: 06/21/25 Patient will ascend and descend 8 stairs with one railing and modified independence in order to safely negotiate home. (Not Addressed) Start: 05/24/25 Expected End: 06/21/25 Transfers Patient will perform bed mobility with independence in order to improve independence and prepare for out of bed mobility. (Progressing) Start: 05/24/25 Expected End: 06/21/25 Patient will complete sit to stand transfer with independence to none in order to improve safety and prepare for out of bed mobility. (Progressing) Start: 05/24/25 Expected End: 06/21/25 Encounter Problems (Resolved) Balance Patient will maintain static standing balance for 3 minutes with modified independence in order to demonstrate decreased risk of falling. (Completed) Start: 05/24/25 Expected End: 06/21/25 Resolved: 06/09/25 Therapy Time Individual Co-treatment Time In 1125 Time Out 1149 Minutes 24 Timed Code Treatment Minutes: (GT, FA) Floridalma Almodovar PTA Cosigned by Pam Dozier PT at 06/10/2025 1:36 PM EDT Hospitalist Progress Note 06/10/2025 Subjective: Admit Date: 05/23/2025 PCP: Charlene Walker MD Room#: 1C-130/1C-130 A BRIEF HOSPITAL COURSE: Patient is an 84-year-old female with past medical history of hypertension, hyperlipidemia, hypothyroidism and depression who presented to the emergency department on 05/23/2025 with right eye vision loss. Initial CT scan of the head with no acute abnormality, CT angiography of the head and neck suggested bilateral 80% stenosis of the internal carotid arteries. In addition patient had shaggy plaque in the aortic arch with an anterior ulceration. Patient was admitted to the hospital for further evaluation and care. Patient underwent carotid endarterectomy with vascular surgery on 05/29/2025. Hospital stay complicated by development of new slurred speech and facial droop post CEA and stroke team was activated, repeat MRI showed no acute findings, however neurology noted a small right lacunar infarct. Patient underwent further testing for uncontrolled hypertension and had a renal artery ultrasound, was noted to have right renal artery stenosis. 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 Patient was noted on workup to be a Plavix nonresponder thus was recommended for aspirin and Brilinta. Interval History: 06/07 - comfortable, no complaints 06/08- feels well, denies pain or SOB or fevers, no other issues 06/09 -creatinine elevated over the last couple days, discussed with nephrology, will change losartan to amlodipine. Patient is feeling okay, no complaints otherwise. 06/10- creatinine improved to 1.33 today from 1.5- losartan discontinued. Feels fine, no complaints Adult diet Regular 24HR INTAKE/OUTPUT: Intake/Output Summary (Last 24 hours) at 06/10/2025 0902 Last data filed at 06/10/2025 0231 Gross per 24 hour Intake 1130 ml Output 900 ml Net 230 ml Past Medical History: Medical History[1] LABS: CBC: Recent Labs 06/08/2551806/09/25 0001 06/10/25 0241 WBC 9.0 8.9 8.0 RBC 3.76* 3.81 3.70* HGB 11.7 11.9 11.4* HCT 35.0 36.1 34.5* MCV 93.1 94.8 93.2 RDW 13.6 13.5 13.3 PLT 232 246 239 BMP: Recent Labs 06/08/2551806/09/25 0001 06/10/25 0241 NA 136 137 134* K 3.7 3.6 3.7 CL 107 107 106 CO2 22* 23 23 BUN 15 20 21 CREATININE 1.28* 1.55* 1.33* GLUCOSE 80* 90 82 CALCIUM 8.5* 8.5* 8.5* ANIONGAP 7 7 5 LIVER PROFILE:No results for input(s): "AST", "ALT", "BILITOT", "ALKPHOS", "PROT" in the last 72 hours. No lab exists for component: LABALBU PT/INR: No results for input(s): "PROTIME", "INR" in the last 72 hours. CARDIAC ENZYMES: No results for input(s): "TROPONINI" in the last 72 hours. Procalcitonin: No results found for: PROCAL COVID-19 PCR: No results for input(s): "COVID19" in the last 72 hours. Objective: Vitals: BP 136/55 (BP Location: Left arm, Patient Position: Sitting) Pulse 55 Temp (!) 35.9 C (96.6 F) (Temporal) Resp 17 Ht 5' 2.01" (1.575 m) Wt 182 lb 9.6 oz (82.8 kg) SpO2 92% BMI 33.39 kg/m Pulse Ox: SpO2 Av.5 % Min: 92 % Max: 96 % Supplemental O2: O2 Flow Rate (L/min): 2 L/min Physical Exam Constitutional: Appearance: She is ill-appearing. Cardiovascular: Rate and Rhythm: Normal rate and regular rhythm. Heart sounds: Normal heart sounds. No murmur heard. No gallop. Pulmonary: Effort: No respiratory distress. Breath sounds: Normal breath sounds. No wheezing. Skin: General: Skin is warm. Findings: No rash. Neurological: Mental Status: She is alert. Medications: Scheduled PRN Scheduled Meds[2] PRN Meds[3] Continuous Continuous Meds[4] Assessment Acute, acute on chronic, unstable/uncontrolled chronic problems/diagnoses: Right eye vision loss-right CRAO Bilateral carotid artery disease Status post left carotid endarterectomy 05/29/2025 Right renal artery stenosis Acute right lacunar stroke Ascending aortic ulcer and atherosclerosis Stable chronic problems affecting care, new non-acute diagnoses: Hypertension JESUS on CKD 3 Hypothyroidism GERD Depression Plan As a result of the above findings & factors, the following mgmt was pursued: - Patient was admitted to the hospital for further evaluation of right eye vision loss. The suspect to be related to right CRAO due to atheroembolism. On further workup patient was found to have bilateral carotid artery disease. Underwent left carotid endarterectomy on 05/29/2025. Recommended for DAPT, after being found to be a Plavix nonresponder was placed on aspirin and Brilinta. Continue indefinitely. -Hospital stay complicated by development of new neurologic symptoms post CEA and was found to have a small right lacunar infarct. Continue DAPT as recommended, blood pressure control. -Patient was found to have right renal artery stenosis and underwent drug-coated stent on 06/05/2025. Recommended for DAPT-aspirin and Brilinta. Patient will need to follow-up with interventional cardiology as outpatient. -Blood pressures have been variable. Due to rising creatinine losartan has been discontinued. Continue amlodipine. Creat better today. - Continue thyroid replacement -Patient has been seen by physical therapy and Occupational Therapy is recommended for inpatient rehab. Care coordination is working to set this up. - am labs, replace lytes prn - delirium precautions: increase activity and limit nighttime disturbances - DVT prophylaxis: enoxaparin Advance Directive: DNR-CCA Anticipated Discharge - Date -0 to 1 days - [facility] - Pending the following - Extended Emergency Contact Information Primary Emergency Contact: Piper Hamilton (POA) Mobile Relation: Louis Bita Holland MD Division of Hospitalist Medicine [facility] [1] Past Medical History: Diagnosis Date Disease of thyroid gland Hypertension 01/01/2024 [2] amLODIPine, 2.5 mg, Oral, qPM amLODIPine, 5 mg, Oral, Daily aspirin, 81 mg, Oral, Daily Or aspirin, 300 mg, Rectal, Daily atorvastatin, 80 mg, Oral, Nightly cholecalciferol, 1,000 Units, Oral, Daily enoxaparin, 40 mg, SubCUTAneous, Daily escitalopram, 10 mg, Oral, Daily levothyroxine, 112 mcg, Oral, qAM AC meclizine, 12.5 mg, Oral, Daily pantoprazole, 40 mg, Oral, Nightly sodium chloride 0.9%, 5-40 mL, IntraVENous, q12h ticagrelor, 90 mg, Oral, BID [3] PRN medications: acetaminophen OR acetaminophen, bisacodyl, hydrALAZINE, labetalol, ondansetron ODT OR [DISCONTINUED] ondansetron, polyethylene glycol (PEG) 3350, prochlorperazine OR prochlorperazine OR prochlorperazine, sodium chloride, sodium chloride 0.9% [4] [facility] Progress Note Subjective/ 84 y.o. year old female who we are seeing in consultation for uncontrolled HTN. Interval History BP continues to be labile but improving. Laying in bed. Denies any issues with urination. Denies any SOB, chest pain or headache S/p Renal art cath with Rt art PCI. ROS Otherwise negative No interval changes to PFSH. All interval notes/labs/imaging reviewed. Objective/ Vitals: 06/09/25 2336 06/10/25 0325 06/10/25 0521 06/10/25 0735 BP: 149/71 141/68 136/55 BP Location: Left arm Left arm Patient Position: Sitting Sitting Pulse: 52 55 Resp: 16 17 Temp: 37.3 C (99.2 F) (!) 35.9 C (96.6 F) TempSrc: Temporal Temporal SpO2: 93% 92% Weight: 82.8 kg (182 lb 9.6 oz) Height: 24HR INTAKE/OUTPUT: Intake/Output Summary (Last 24 hours) at 06/10/2025 0838 Last data filed at 06/10/2025 0231 Gross per 24 hour Intake 1130 ml Output 900 ml Net 230 ml Physical Exam Constitutional: Appearance: Normal appearance. HENT: Head: Normocephalic and atraumatic. Mouth/Throat: Mouth: Mucous membranes are moist. Eyes: General: No scleral icterus. Cardiovascular: Rate and Rhythm: Normal rate and regular rhythm. Pulmonary: Effort: Pulmonary effort is normal. Breath sounds: Normal breath sounds. Comments: Breathing comfortably on RA Abdominal: General: Bowel sounds are normal. Palpations: Abdomen is soft. Musculoskeletal: Cervical back: Neck supple. Right lower leg: No edema. Left lower leg: No edema. Skin: General: Skin is warm and dry. Neurological: Mental Status: She is alert. Mental status is at baseline. Scheduled Meds:Scheduled Meds[1] Continuous Infusions:Continuous Meds[2] PRN Meds:.PRN Meds[3] Data/ Recent Labs 06/08/25 0519 06/09/25 0001 06/10/25 0241 WBC 9.0 8.9 8.0 HGB 11.7 11.9 11.4* HCT 35.0 36.1 34.5* MCV 93.1 94.8 93.2 PLT 232 246 239 Recent Labs 06/08/25 0519 06/09/25 0001 06/10/25 0241 NA 136 137 134* K 3.7 3.6 3.7 CL 107 107 106 CO2 22* 23 23 GLUCOSE 80* 90 82 PHOS 3.4 4.0 3.9 MG 2.0 1.9 1.9 BUN 15 20 21 CREATININE 1.28* 1.55* 1.33* Assessment/ Uncontrolled HTN JESUS: Likely 2/2 SERENA and hemodynamic fluctuations CKD stage 3a Hyponatremia Renal artery stenosis I70.1 Hypokalemia: resolved ASVD I70.90 Bilateral carotid artery disease Acute R central retinal artery occlusion NAGMA Plan/ -BP fluctuation noted throughout admission but improving slowly. Given development of JESUS: discontinued losartan. No significant PVR noted. JESUS Resolving w ivf Renin/vamsi Pending. Cont current dose of amlodipine (5/2.5) on discharge and losartan on hold. No BB 2/2 bradycardia. Na fluctuating but acceptable. Maintain low Na diet for blood pressure control. Encourage protein intake. Limit po intake of liquids to 1200ml/day. Hypokalemia resolved s/p supplement. Cont to monitor lytes and replete PRN Rest of management per primary team Okay to discharge. Recommend labs twice a week while in rehab and post discharge follow-up in clinic. Please do not hesitate to call with any questions or concerns. [1] amLODIPine, 2.5 mg, Oral, qPM amLODIPine, 5 mg, Oral, Daily aspirin, 81 mg, Oral, Daily Or aspirin, 300 mg, Rectal, Daily atorvastatin, 80 mg, Oral, Nightly cholecalciferol, 1,000 Units, Oral, Daily enoxaparin, 40 mg, SubCUTAneous, Daily escitalopram, 10 mg, Oral, Daily levothyroxine, 112 mcg, Oral, qAM AC meclizine, 12.5 mg, Oral, Daily pantoprazole, 40 mg, Oral, Nightly sodium chloride 0.9%, 5-40 mL, IntraVENous, q12h ticagrelor, 90 mg, Oral, BID [2] [3] PRN medications: acetaminophen OR acetaminophen, bisacodyl, hydrALAZINE, labetalol, ondansetron ODT OR [DISCONTINUED] ondansetron, polyethylene glycol (PEG) 3350, prochlorperazine OR prochlorperazine OR prochlorperazine, sodium chloride, sodium chloride 0.9% Nutrition update completed. Chart reviewed. Patient to be monitored and followed by the diet natural gas technician. VICK Beckman Hospitalist Progress Note 06/09/2025 Subjective: Admit Date: 05/23/2025 PCP: Charlene Walker MD Room#: [facility]130/[facility]130 A BRIEF HOSPITAL COURSE: Patient is an 84-year-old female with past medical history of hypertension, hyperlipidemia, hypothyroidism and depression who presented to the emergency department on 05/23/2025 with right eye vision loss. Initial CT scan of the head with no acute abnormality, CT angiography of the head and neck suggested bilateral 80% stenosis of the internal carotid arteries. In addition patient had shaggy plaque in the aortic arch with an anterior ulceration. Patient was admitted to the hospital for further evaluation and care. Patient underwent carotid endarterectomy with vascular surgery on 05/29/2025. Hospital stay complicated by development of new slurred speech and facial droop post CEA and stroke team was activated, repeat MRI showed no acute findings, however neurology noted a small right lacunar infarct. Patient underwent further testing for uncontrolled hypertension and had a renal artery ultrasound, was noted to have right renal artery stenosis. 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 Patient was noted on workup to be a Plavix nonresponder thus was recommended for aspirin and Brilinta. Interval History: 06/07 - comfortable, no complaints 06/08- feels well, denies pain or SOB or fevers, no other issues 06/09 -creatinine elevated over the last couple days, discussed with nephrology, will change losartan to amlodipine. Patient is feeling okay, no complaints otherwise. Adult diet Regular 24HR INTAKE/OUTPUT: Intake/Output Summary (Last 24 hours) at 06/09/2025 1037 Last data filed at 06/09/2025 0800 Gross per 24 hour Intake 710 ml Output -- Net 710 ml Past Medical History: Medical History[1] LABS: CBC: Recent Labs 06/07/25 0446 06/08/25 0519 06/09/25 0001 WBC 10.8* 9.0 8.9 RBC 3.95 3.76* 3.81 HGB 12.3 11.7 11.9 HCT 37.0 35.0 36.1 MCV 93.7 93.1 94.8 RDW 13.7 13.6 13.5 PLT 235 232 246 BMP: Recent Labs 06/07/25 0446 06/08/25 0519 06/09/25 0001 NA 136 136 137 K 3.7 3.7 3.6 CL 104 107 107 CO2 22* 22* 23 BUN 14 15 20 CREATININE 1.27* 1.28* 1.55* GLUCOSE 90 80* 90 CALCIUM 8.7* 8.5* 8.5* ANIONGAP 10 7 7 LIVER PROFILE:No results for input(s): "AST", "ALT", "BILITOT", "ALKPHOS", "PROT" in the last 72 hours. No lab exists for component: LABALBU PT/INR: No results for input(s): "PROTIME", "INR" in the last 72 hours. CARDIAC ENZYMES: No results for input(s): "TROPONINI" in the last 72 hours. Procalcitonin: No results found for: PROCAL COVID-19 PCR: No results for input(s): "COVID19" in the last 72 hours. Objective: Vitals: BP 151/55 (BP Location: Left arm, Patient Position: Sitting) Pulse (!) 49 Temp (!) 35.9 C (96.6 F) (Temporal) Resp 17 Ht 5' 2.01" (1.575 m) Wt 185 lb (83.9 kg) SpO2 95% BMI 33.83 kg/m Pulse Ox: SpO2 Av % Min: 91 % Max: 100 % Supplemental O2: O2 Flow Rate (L/min): 2 L/min Physical Exam Constitutional: Appearance: She is ill-appearing. Cardiovascular: Rate and Rhythm: Normal rate and regular rhythm. Heart sounds: Normal heart sounds. No murmur heard. No gallop. Pulmonary: Effort: No respiratory distress. Breath sounds: Normal breath sounds. No wheezing. Skin: General: Skin is warm. Findings: No rash. Neurological: Mental Status: She is alert. Medications: Scheduled PRN Scheduled Meds[2] PRN Meds[3] Continuous Continuous Meds[4] Assessment Data: (CAT1) Reviewed 2 notes from different specialty or health system (each=1). (CAT1) Reviewed 2 labs/studies ordered by another provider not previously counted (each=1, panels count as 1). (LOW: 2x CAT1 or independent historian MOD: 3x CAT1 or 1x CAT3 EXTENSIVE: 3x CAT1 and 1x CAT3) Acute, acute on chronic, unstable/uncontrolled chronic problems/diagnoses: Right eye vision loss-right CRAO Bilateral carotid artery disease Status post left carotid endarterectomy 05/29/2025 Right renal artery stenosis Acute right lacunar stroke Ascending aortic ulcer and atherosclerosis Stable chronic problems affecting care, new non-acute diagnoses: Hypertension JESUS on CKD 3 Hypothyroidism GERD Depression Plan As a result of the above findings & factors, the following mgmt was pursued: - Patient was admitted to the hospital for further evaluation of right eye vision loss. The suspect to be related to right CRAO due to atheroembolism. On further workup patient was found to have bilateral carotid artery disease. Underwent left carotid endarterectomy on 05/29/2025. Recommended for DAPT, after being found to be a Plavix nonresponder was placed on aspirin and Brilinta. Continue indefinitely. -Hospital stay complicated by development of new neurologic symptoms post CEA and was found to have a small right lacunar infarct. Continue DAPT as recommended, blood pressure control. -Patient was found to have right renal artery stenosis and underwent drug-coated stent on 06/05/2025. Recommended for DAPT-aspirin and Brilinta. Patient will need to follow-up with interventional cardiology as outpatient. -Blood pressures have been variable. Due to rising creatinine losartan has been discontinued. Continue amlodipine. Discussed with nephrology. - Continue thyroid replacement -Patient has been seen by physical therapy and Occupational Therapy is recommended for inpatient rehab. Care coordination is working to set this up. - am labs, replace lytes prn - delirium precautions: increase activity and limit nighttime disturbances - DVT prophylaxis: enoxaparin Advance Directive: DNR-CCA Anticipated Discharge - Date -0 to 2 days - Location -[facility] - Pending the following -authorization Extended Emergency Contact Information Primary Emergency Contact: Hamilton NasirBENIPiper Medina Mobile Relation: Thuycordell Bita Holland MD Division of Hospitalist Medicine [email or web address] [1] Past Medical History: Diagnosis Date Disease of thyroid gland Hypertension 01/01/2024 [2] amLODIPine, 2.5 mg, Oral, qPM amLODIPine, 5 mg, Oral, Daily aspirin, 81 mg, Oral, Daily Or aspirin, 300 mg, Rectal, Daily atorvastatin, 80 mg, Oral, Nightly cholecalciferol, 1,000 Units, Oral, Daily enoxaparin, 40 mg, SubCUTAneous, Daily escitalopram, 10 mg, Oral, Daily levothyroxine, 112 mcg, Oral, qAM AC meclizine, 12.5 mg, Oral, Daily pantoprazole, 40 mg, Oral, Nightly sodium chloride 0.9%, 5-40 mL, IntraVENous, q12h ticagrelor, 90 mg, Oral, BID [3] PRN medications: acetaminophen OR acetaminophen, bisacodyl, hydrALAZINE, labetalol, ondansetron ODT OR [DISCONTINUED] ondansetron, polyethylene glycol (PEG) 3350, prochlorperazine OR prochlorperazine OR prochlorperazine, sodium chloride, sodium chloride 0.9% [4] lactated Ringer's, 50 mL/hr [facility] Progress Note Subjective/ 84 y.o. year old female who we are seeing in consultation for uncontrolled HTN. Interval History BP continues to be labile but improving. Laying in bed. Denies any issues with urination. Denies any SOB, chest pain or headache S/p Renal art cath with Rt art PCI. ROS Otherwise negative No interval changes to [facility]. All interval notes/labs/imaging reviewed. Objective/ Vitals: 06/08/25 1622 06/08/25 1919 06/08/25 2318 06/09/25 0711 BP: 133/55 111/59 147/69 151/55 BP Location: Left arm Left arm Left arm Left arm Patient Position: Sitting Sitting Sitting Pulse: 51 56 58 (!) 49 Resp: 14 16 17 17 Temp: (!) 35.8 C (96.5 F) 36.2 C (97.2 F) 36.2 C (97.1 F) (!) 35.9 C (96.6 F) TempSrc: Temporal Temporal Temporal Temporal SpO2: 100% 99% 95% 95% Weight: Height: 24HR INTAKE/OUTPUT: Intake/Output Summary (Last 24 hours) at 06/09/2025 1019 Last data filed at 06/09/2025 0800 Gross per 24 hour Intake 710 ml Output -- Net 710 ml Physical Exam Constitutional: Appearance: Normal appearance. HENT: Head: Normocephalic and atraumatic. Mouth/Throat: Mouth: Mucous membranes are moist. Eyes: General: No scleral icterus. Cardiovascular: Rate and Rhythm: Normal rate and regular rhythm. Pulmonary: Effort: Pulmonary effort is normal. Breath sounds: Normal breath sounds. Comments: Breathing comfortably on RA Abdominal: General: Bowel sounds are normal. Palpations: Abdomen is soft. Musculoskeletal: Cervical back: Neck supple. Right lower leg: No edema. Left lower leg: No edema. Skin: General: Skin is warm and dry. Neurological: Mental Status: She is alert. Mental status is at baseline. Scheduled Meds:Scheduled Meds[1] Continuous Infusions:Continuous Meds[2] PRN Meds:.PRN Meds[3] Data/ Recent Labs 06/07/25 0446 06/08/25 0519 06/09/25 0001 WBC 10.8* 9.0 8.9 HGB 12.3 11.7 11.9 HCT 37.0 35.0 36.1 MCV 93.7 93.1 94.8 PLT 235 232 246 Recent Labs 06/07/25 0446 06/08/25 0519 06/09/25 0001 NA 136 136 137 K 3.7 3.7 3.6 CL 104 107 107 CO2 22* 22* 23 GLUCOSE 90 80* 90 PHOS 3.4 3.4 4.0 MG 1.8 2.0 1.9 BUN 14 15 20 CREATININE 1.27* 1.28* 1.55* Assessment/ Uncontrolled HTN JESUS: Likely 2/2 SERENA and hemodynamic fluctuations CKD stage 3a Hyponatremia Renal artery stenosis I70.1 Hypokalemia: resolved ASVD I70.90 Bilateral carotid artery disease Acute R central retinal artery occlusion NAGMA Plan/ -BP fluctuation noted throughout admission but improving slowly. Given development of JESUS: discont losartan. Urine studies requested. Add amlodipine in pm. Limited vol ivf requested. Renin/vamsi Pending. Complains of mild suprapubic discomfort. Will request PVR bladder scan. Na in normal range Maintain low Na diet Limit po intake of liquids to 1200ml/day. Hypokalemia resolved s/p supplement. Cont to monitor lytes and replete PRN Rest of management per primary team Discussed w Dr. Holland. Please do not hesitate to call with any questions or concerns. [1] amLODIPine, 5 mg, Oral, Daily aspirin, 81 mg, Oral, Daily Or aspirin, 300 mg, Rectal, Daily atorvastatin, 80 mg, Oral, Nightly cholecalciferol, 1,000 Units, Oral, Daily enoxaparin, 40 mg, SubCUTAneous, Daily escitalopram, 10 mg, Oral, Daily levothyroxine, 112 mcg, Oral, qAM AC meclizine, 12.5 mg, Oral, Daily pantoprazole, 40 mg, Oral, Nightly sodium chloride 0.9%, 5-40 mL, IntraVENous, q12h ticagrelor, 90 mg, Oral, BID [2] lactated Ringer's, 50 mL/hr [3] PRN medications: acetaminophen OR acetaminophen, bisacodyl, hydrALAZINE, labetalol, ondansetron ODT OR [DISCONTINUED] ondansetron, polyethylene glycol (PEG) 3350, prochlorperazine OR prochlorperazine OR prochlorperazine, sodium chloride, sodium chloride 0.9% Images from the original note were not included. PHYSICAL THERAPY [facility] Treatment Note Name/MRN: Diaan Kohli ([id number]) Date of : 1940 Age: 84 y.o. Room/Bed: 1C-130/1C-130 A Discharge Recommendation: IP Rehab Other: TBD Assessment She is progressing towards PT goals. SBA-Min assist for all mobility this date. Able to progress ambulation distance this date. Pt reported being limited d/t fatigue and decreased visual field (no vision in R eye and very limited in the L eye with pt only able to see approx 1 ft in front of her). Pt reported vision has not improved much throughout LOS. She is progressing throughout LOS but barriers to discharge are visual changes and pt lives alone with minimal to no support. Recommend disch to IP Rehab to improve functional endurance and balance to reduce risk for falls. Pt acknowledged she will need to start thinking about correction plans (CARE HOME?) Subjective Pt in the bed and agreeable to PT. Pain: Pt denies any current pain. Medical Precautions: No active isolations Proper PPE donned/doffed in accordance with facility standards. Fall Risk: Ny Fall Risk Score: 60 (Medium Risk) Ny Fall Risk Score: 60 (High Risk) Precautions/Restrictions: Seizure, Skin and Fall Precautions Overall Cognitive Status: WNL Overall Orientation Status: Oriented x4 Family/Caregiver Present: none Objective Bed Mobility Supine to sit: SBA Transfers/Mobility Sit to stand: SBA, Contact Guard Stand to sit: SBA, Contact Guard STS completed x10 throughout session with x6 reps for functional strengthening at end of session. Progressed to SBA with no UE assist. Device(s) used: None Ambulation Ambulation 1 Assistive device(s) used: Front wheeled walker Assist level: Contact Guard, Min Assist Distance (ft): 70 ft x 2 (standing rest break prior to returning to room) Quality of gait: slow, shuffled gait with poor foot clearance. Assist needed for visual guide and also for steadiness with turning at times. Balance During Session: Posture: good Sitting - Static: Independent Sitting - Dynamic: Independent Standing - Static: SBA Standing - Dynamic: Min Assist Exercises Exercises Hip Flexion: Seated marches x10 B LE. Standing marches with x1 hand helf assist x12 bilat LE's, Min assist for balance Knee Long Arc Quad: Seated x10 B LE Ankle Pumps: Seated x10 B LE Plan Continue acute PT per plan of care. Safety/Education Safety Safety Devices in place: call light within reach and patient left sitting EOB Restraints: No Education Education Given To: patient Education Provided: PT Role, PT Goals, Gait Training, Plan of Care, Home Exercise Program, Precautions, Discharge Recommendations, and Benefits of Increasing Activity Education Method: Verbal and Demonstration Barriers to Learning: None Education Outcome: Verbalized Understanding Outcome Measures AM-PAC AM-PAC Inpatient Mobility Raw Score (No Stairs) : 18 JH-HLM JH-HLM Scale: Walked 25 ft or more (i.e. walked outside of room) Goals Patient Stated Goal: To be as Indep as possible Encounter Problems Encounter Problems (Active) Balance Patient will maintain dynamic standing balance for 2 minutes with modified independence in order to demonstrate decreased risk of falling. (Progressing) Start: 05/24/25 Expected End: 06/21/25 Mobility Patient will ambulate 50 feet with modified independence and rolling walker in order to improve safety and independence with mobility. (Progressing) Start: 05/24/25 Expected End: 06/21/25 Patient will ascend and descend 8 stairs with one railing and modified independence in order to safely negotiate home. (Not Addressed) Start: 05/24/25 Expected End: 06/21/25 Transfers Patient will perform bed mobility with independence in order to improve independence and prepare for out of bed mobility. (Progressing) Start: 05/24/25 Expected End: 06/21/25 Patient will complete sit to stand transfer with independence to none in order to improve safety and prepare for out of bed mobility. (Progressing) Start: 05/24/25 Expected End: 06/21/25 Encounter Problems (Resolved) Balance Patient will maintain static standing balance for 3 minutes with modified independence in order to demonstrate decreased risk of falling. (Completed) Start: 05/24/25 Expected End: 06/21/25 Resolved: 06/09/25 Therapy Time Individual Co-treatment Time In 0910 Time Out 0940 Minutes 30 Timed Code Treatment Minutes: (x1 FA, x1 Gait) Pam Dozier PT Hospitalist Progress Note 06/08/2025 Subjective: Admit Date: 05/23/2025 PCP: Charlene Walker MD Room#: 1C-130/130 A BRIEF HOSPITAL COURSE: Patient is an 84-year-old female with past medical history of hypertension, hyperlipidemia, hypothyroidism and depression who presented to the emergency department on 05/23/2025 with right eye vision loss. Initial CT scan of the head with no acute abnormality, CT angiography of the head and neck suggested bilateral 80% stenosis of the internal carotid arteries. In addition patient had shaggy plaque in the aortic arch with an anterior ulceration. Patient was admitted to the hospital for further evaluation and care. Patient underwent carotid endarterectomy with vascular surgery on 05/29/2025. Hospital stay complicated by development of new slurred speech and facial droop post CEA and stroke team was activated, repeat MRI showed no acute findings, however neurology noted a small right lacunar infarct. Patient underwent further testing for uncontrolled hypertension and had a renal artery ultrasound, was noted to have right renal artery stenosis. 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 Patient was noted on workup to be a Plavix nonresponder thus was recommended for aspirin and Brilinta. Interval History: 06/07 - comfortable, no complaints 06/08- feels well, denies pain or SOB or fevers, no other issues Adult diet Regular 24HR INTAKE/OUTPUT: Intake/Output Summary (Last 24 hours) at 06/08/2025 0948 Last data filed at 06/07/20251999 Gross per 24 hour Intake 368 ml Output -- Net 368 ml Past Medical History: Medical History[1] LABS: CBC: Recent Labs 06/06/25 0006 06/07/256 06/08/25 0519 WBC 12.0* 10.8* 9.0 RBC 3.97 3.95 3.76* HGB 12.3 12.3 11.7 HCT 36.5 37.0 35.0 MCV 91.9 93.7 93.1 RDW 13.4 13.7 13.6 PLT 253 235 232 BMP: Recent Labs 06/06/25 0006 06/07/25 0446 06/08/25 0519 NA 136 136 136 K 3.5 3.7 3.7 CL 105 104 107 CO2 22* 22* 22* BUN 14 14 15 CREATININE 1.20* 1.27* 1.28* GLUCOSE 90 90 80* CALCIUM 8.7* 8.7* 8.5* ANIONGAP 9 10 7 LIVER PROFILE:No results for input(s): "AST", "ALT", "BILITOT", "ALKPHOS", "PROT" in the last 72 hours. No lab exists for component: LABALBU PT/INR: No results for input(s): "PROTIME", "INR" in the last 72 hours. CARDIAC ENZYMES: No results for input(s): "TROPONINI" in the last 72 hours. Procalcitonin: No results found for: PROCAL COVID-19 PCR: No results for input(s): "COVID19" in the last 72 hours. Objective: Vitals: BP 151/61 (BP Location: Right arm, Patient Position: Sitting) Pulse 76 Temp 36.1 C (96.9 F) (Temporal) Resp 13 Ht 5' 2.01" (1.575 m) Wt 185 lb (83.9 kg) SpO2 97% BMI 33.83 kg/m Pulse Ox: SpO2 Av.2 % Min: 92 % Max: 97 % Supplemental O2: O2 Flow Rate (L/min): 2 L/min Physical Exam Constitutional: Appearance: She is ill-appearing. Cardiovascular: Rate and Rhythm: Normal rate and regular rhythm. Heart sounds: Normal heart sounds. No murmur heard. No gallop. Pulmonary: Effort: No respiratory distress. Breath sounds: Normal breath sounds. No wheezing. Skin: General: Skin is warm. Findings: No rash. Neurological: Mental Status: She is alert. Medications: Scheduled PRN Scheduled Meds[2] PRN Meds[3] Continuous Continuous Meds[4] Assessment Data: (CAT1) Reviewed 2 notes from different specialty or health system (each=1). (CAT1) Reviewed 2 labs/studies ordered by another provider not previously counted (each=1, panels count as 1). (LOW: 2x CAT1 or independent historian MOD: 3x CAT1 or 1x CAT3 EXTENSIVE: 3x CAT1 and 1x CAT3) Acute, acute on chronic, unstable/uncontrolled chronic problems/diagnoses: Right eye vision loss-right CRAO Bilateral carotid artery disease Status post left carotid endarterectomy 05/29/2025 Right renal artery stenosis Acute right lacunar stroke Ascending aortic ulcer and atherosclerosis Stable chronic problems affecting care, new non-acute diagnoses: Hypertension JESUS on CKD 3 Hypothyroidism GERD Depression Plan As a result of the above findings & factors, the following mgmt was pursued: - Patient was admitted to the hospital for further evaluation of right eye vision loss. The suspect to be related to right CRAO due to atheroembolism. On further workup patient was found to have bilateral carotid artery disease. Underwent left carotid endarterectomy on 05/29/2025. Recommended for DAPT, after being found to be a Plavix nonresponder was placed on aspirin and Brilinta. Continue indefinitely. -Hospital stay complicated by development of new neurologic symptoms post CEA and was found to have a small right lacunar infarct. Continue DAPT as recommended, blood pressure control. -Patient was found to have right renal artery stenosis and underwent drug-coated stent on 06/05/2025. Recommended for DAPT-aspirin and Brilinta. Patient will need to follow-up with interventional cardiology as outpatient. -Blood pressures have been variable. Currently on amlodipine and Cozaar. Continue to monitor blood pressure trend. Nephrology is following and adjusting blood pressure medications as needed. - Continue thyroid replacement -Patient has been seen by physical therapy and Occupational Therapy is recommended for inpatient rehab. Care coordination is working to set this up. - am labs, replace lytes prn - delirium precautions: increase activity and limit nighttime disturbances - DVT prophylaxis: enoxaparin No changes to medical regimen today 06/08 as we await authorization for acute rehab- patient is medically stable for discharge Advance Directive: DNR-CCA Anticipated Discharge - Date -0 to 2 days - Location -[facility] - Pending the following -authorization Extended Emergency Contact Information Primary Emergency Contact: Piper Hamilton (POA) Mobile Relation: Louis Holland MD Division of Hospitalist Medicine [facility] [1] Past Medical History: Diagnosis Date Disease of thyroid gland Hypertension 01/01/2024 [2] amLODIPine, 5 mg, Oral, Daily aspirin, 81 mg, Oral, Daily Or aspirin, 300 mg, Rectal, Daily atorvastatin, 80 mg, Oral, Nightly cholecalciferol, 1,000 Units, Oral, Daily enoxaparin, 40 mg, SubCUTAneous, Daily escitalopram, 10 mg, Oral, Daily levothyroxine, 112 mcg, Oral, qAM AC losartan, 25 mg, Oral, BID meclizine, 12.5 mg, Oral, Daily pantoprazole, 40 mg, Oral, Nightly sodium chloride 0.9%, 5-40 mL, IntraVENous, q12h ticagrelor, 90 mg, Oral, BID [3] PRN medications: acetaminophen OR acetaminophen, bisacodyl, hydrALAZINE, labetalol, ondansetron ODT OR [DISCONTINUED] ondansetron, polyethylene glycol (PEG) 3350, prochlorperazine OR prochlorperazine OR prochlorperazine, sodium chloride, sodium chloride 0.9% [4] [facility] Progress Note Subjective/ 84 y.o. year old female who we are seeing in consultation for uncontrolled HTN. Interval History BP continues to be labile but improved. Laying in bed. Denies any issues with urination. Denies any SOB, chest pain or headache S/p Renal art cath with Rt art PCI. ROS Otherwise negative [facility] All interval notes/labs/imaging reviewed. Objective/ Vitals: 06/07/25 2329 06/08/25 0000 06/08/25 0339 06/08/25 0400 BP: 136/64 127/50 BP Location: Left arm Left arm Patient Position: Lying Lying Pulse: 60 53 65 (!) 49 Resp: 18 24 Temp: 37.4 C (99.3 F) 36.9 C (98.4 F) TempSrc: Temporal Temporal SpO2: 93% 92% Weight: Height: 24HR INTAKE/OUTPUT: Intake/Output Summary (Last 24 hours) at 06/08/2025 0508 Last data filed at 06/07/20251999 Gross per 24 hour Intake 368 ml Output -- Net 368 ml Physical Exam Constitutional: Appearance: Normal appearance. HENT: Head: Normocephalic and atraumatic. Mouth/Throat: Mouth: Mucous membranes are moist. Eyes: General: No scleral icterus. Cardiovascular: Rate and Rhythm: Normal rate and regular rhythm. Pulmonary: Effort: Pulmonary effort is normal. Breath sounds: Normal breath sounds. Comments: Breathing comfortably on RA Abdominal: General: Bowel sounds are normal. Palpations: Abdomen is soft. Musculoskeletal: Cervical back: Neck supple. Right lower leg: No edema. Left lower leg: No edema. Skin: General: Skin is warm and dry. Neurological: Mental Status: She is alert. Mental status is at baseline. Scheduled Meds:Scheduled Meds[1] Continuous Infusions:Continuous Meds[2] PRN Meds:.PRN Meds[3] Data/ Recent Labs 06/06/25 0006 06/07/25 0446 WBC 12.0* 10.8* HGB 12.3 12.3 HCT 36.5 37.0 MCV 91.9 93.7 PLT 253 235 Recent Labs 06/06/25 0006 06/07/25 0446 NA 136 136 K 3.5 3.7 CL 105 104 CO2 22* 22* GLUCOSE 90 90 PHOS 4.5 3.4 MG 1.8 1.8 BUN 14 14 CREATININE 1.20* 1.27* Assessment/ Uncontrolled HTN CKD stage 3a Hyponatremia Renal artery stenosis I70.1 Hypokalemia: resolved ASVD I70.90 Bilateral carotid artery disease Acute R central retinal artery occlusion NAGMA Plan/ -BP fluctuation noted throughout admission but improving slowly. Closely monitor BP prior to medication administration C/w current Tx: scheduled and PRN. Monitor for development of SERENA. Renin and vamsi levels pending. Na levels fluctuating. Acceptable. Maintain low Na diet Limit po intake of liquids to 1200ml/day. Hypokalemia resolved s/p supplement. Cont to monitor lytes and replete PRN Rest of management per primary team If discharged: BMP in 3 days and f/up in clinic in 1-2 wks w labs. Please do not hesitate to call with any questions or concerns Discussed w Dr. Holland. [1] amLODIPine, 5 mg, Oral, Daily aspirin, 81 mg, Oral, Daily Or aspirin, 300 mg, Rectal, Daily atorvastatin, 80 mg, Oral, Nightly cholecalciferol, 1,000 Units, Oral, Daily enoxaparin, 40 mg, SubCUTAneous, Daily escitalopram, 10 mg, Oral, Daily levothyroxine, 112 mcg, Oral, qAM AC losartan, 25 mg, Oral, BID meclizine, 12.5 mg, Oral, Daily pantoprazole, 40 mg, Oral, Nightly sodium chloride 0.9%, 5-40 mL, IntraVENous, q12h ticagrelor, 90 mg, Oral, BID [2] [3] PRN medications: acetaminophen OR acetaminophen, bisacodyl, hydrALAZINE, labetalol, ondansetron ODT OR [DISCONTINUED] ondansetron, polyethylene glycol (PEG) 3350, prochlorperazine OR prochlorperazine OR prochlorperazine, sodium chloride, sodium chloride 0.9% [facility] Renal [facility] Progress Note Subjective/ 84 y.o. year old female who we are seeing in consultation for uncontrolled HTN. Interval History BP continues to be labile but improved. Laying in bed. Denies any issues with urination. Denies any SOB, chest pain or headache S/p Renal art cath yest with Rt art PCI. ROS Otherwise negative No interval [facility] All interval notes/labs/imaging reviewed. Objective/ Vitals: 06/07/25 0400 06/07/25 0728 06/07/25 0843 06/07/25 1049 BP: (!) 172/68 116/96 (!) 104/43 BP Location: Right arm Right arm Patient Position: Lying Lying Pulse: 56 (!) 49 52 Resp: 16 19 Temp: 36.3 C (97.4 F) 36.2 C (97.1 F) TempSrc: Temporal Temporal SpO2: 94% 95% Weight: Height: 24HR INTAKE/OUTPUT: Intake/Output Summary (Last 24 hours) at 06/07/2025 1328 Last data filed at 06/07/2025 1218 Gross per 24 hour Intake 368 ml Output -- Net 368 ml Physical Exam Constitutional: Appearance: Normal appearance. HENT: Head: Normocephalic and atraumatic. Mouth/Throat: Mouth: Mucous membranes are moist. Eyes: General: No scleral icterus. Cardiovascular: Rate and Rhythm: Normal rate and regular rhythm. Pulmonary: Effort: Pulmonary effort is normal. Breath sounds: Normal breath sounds. Comments: Breathing comfortably on RA Abdominal: General: Bowel sounds are normal. Palpations: Abdomen is soft. Musculoskeletal: Cervical back: Neck supple. Right lower leg: No edema. Left lower leg: No edema. Skin: General: Skin is warm and dry. Neurological: Mental Status: She is alert. Mental status is at baseline. Scheduled Meds:Scheduled Meds[1] Continuous Infusions:Continuous Meds[2] PRN Meds:.PRN Meds[3] Data/ Recent Labs 06/05/25 0012 06/06/25 0006 06/07/25 0446 WBC 10.0 12.0* 10.8* HGB 12.5 12.3 12.3 HCT 37.2 36.5 37.0 MCV 93.7 91.9 93.7 PLT 260 253 235 Recent Labs 06/05/25 0012 06/06/25 0006 06/07/25 0446 NA 134* 136 136 K 3.9 3.5 3.7 CL 104 105 104 CO2 22* 22* 22* GLUCOSE 98 90 90 PHOS 3.9 4.5 3.4 MG 1.7 1.8 1.8 BUN 13 14 14 CREATININE 1.19* 1.20* 1.27* Assessment/ Uncontrolled HTN CKD stage 3a Hyponatremia Renal artery stenosis I70.1 Hypokalemia: resolved ASVD I70.90 Bilateral carotid artery disease Acute R central retinal artery occlusion NAGMA Plan/ -BP fluctuation noted throughout admission. Elevated this AM, improved with morning meds and starting to become low. Closely monitor BP prior to medication administration C/w current Tx: scheduled and PRN. Monitor for development of SERENA. Renin and vamsi levels pending. Na levels fluctuating. Acceptable. Maintain low Na diet Limit po intake of liquids to 1200ml/day. Hypokalemia resolved s/p supplement. Cont to monitor lytes and replete PRN Rest of management per primary team If discharged: BMP in 3 days and f/up in clinic in 1-2 wks w labs. Please do not hesitate to call with any questions or concerns [1] amLODIPine, 5 mg, Oral, Daily aspirin, 81 mg, Oral, Daily Or aspirin, 300 mg, Rectal, Daily atorvastatin, 80 mg, Oral, Nightly cholecalciferol, 1,000 Units, Oral, Daily enoxaparin, 40 mg, SubCUTAneous, Daily escitalopram, 10 mg, Oral, Daily levothyroxine, 112 mcg, Oral, qAM AC losartan, 25 mg, Oral, BID meclizine, 12.5 mg, Oral, Daily pantoprazole, 40 mg, Oral, Nightly sodium chloride 0.9%, 5-40 mL, IntraVENous, q12h ticagrelor, 90 mg, Oral, BID [2] [3] PRN medications: acetaminophen OR acetaminophen, bisacodyl, hydrALAZINE, labetalol, ondansetron ODT OR [DISCONTINUED] ondansetron, polyethylene glycol (PEG) 3350, prochlorperazine OR prochlorperazine OR prochlorperazine, sodium chloride, sodium chloride 0.9% Hospitalist Progress Note 06/07/2025 Subjective: Admit Date: 05/23/2025 PCP: Charlene Walker MD Room#: [facility] A BRIEF HOSPITAL COURSE: Patient is an 84-year-old female with past medical history of hypertension, hyperlipidemia, hypothyroidism and depression who presented to the emergency department on 05/23/2025 with right eye vision loss. Initial CT scan of the head with no acute abnormality, CT angiography of the head and neck suggested bilateral 80% stenosis of the internal carotid arteries. In addition patient had shaggy plaque in the aortic arch with an anterior ulceration. Patient was admitted to the hospital for further evaluation and care. Patient underwent carotid endarterectomy with vascular surgery on 05/29/2025. Hospital stay complicated by development of new slurred speech and facial droop post CEA and stroke team was activated, repeat MRI showed no acute findings, however neurology noted a small right lacunar infarct. Patient underwent further testing for uncontrolled hypertension and had a renal artery ultrasound, was noted to have right renal artery stenosis. 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 Patient was noted on workup to be a Plavix nonresponder thus was recommended for aspirin and Brilinta. Interval History: 06/07 - comfortable, no complaints Adult diet Regular 24HR INTAKE/OUTPUT: Intake/Output Summary (Last 24 hours) at 06/07/2025 0824 Last data filed at 06/06/20251999 Gross per 24 hour Intake 360 ml Output -- Net 360 ml Past Medical History: Medical History[1] LABS: CBC: Recent Labs 06/05/25 0012 06/06/25 0006 06/07/25 0446 WBC 10.0 12.0* 10.8* RBC 3.97 3.97 3.95 HGB 12.5 12.3 12.3 HCT 37.2 36.5 37.0 MCV 93.7 91.9 93.7 RDW 13.4 13.4 13.7 PLT 260 253 235 BMP: Recent Labs 06/05/25 0012 06/06/25 0006 06/07/25 0446 NA 134* 136 136 K 3.9 3.5 3.7 CL 104 105 104 CO2 22* 22* 22* BUN 13 14 14 CREATININE 1.19* 1.20* 1.27* GLUCOSE 98 90 90 CALCIUM 8.4* 8.7* 8.7* ANIONGAP 8 9 10 LIVER PROFILE:No results for input(s): "AST", "ALT", "BILITOT", "ALKPHOS", "PROT" in the last 72 hours. No lab exists for component: LABALBU PT/INR: No results for input(s): "PROTIME", "INR" in the last 72 hours. CARDIAC ENZYMES: No results for input(s): "TROPONINI" in the last 72 hours. Procalcitonin: No results found for: PROCAL COVID-19 PCR: No results for input(s): "COVID19" in the last 72 hours. Objective: Vitals: BP (!) 172/68 (BP Location: Right arm, Patient Position: Lying) Pulse (!) 49 Temp 36.3 C (97.4 F) (Temporal) Resp 16 Ht 5' 2.01" (1.575 m) Wt 185 lb (83.9 kg) SpO2 94% BMI 33.83 kg/m Pulse Ox: SpO2 Av.7 % Min: 93 % Max: 97 % Supplemental O2: O2 Flow Rate (L/min): 2 L/min Physical Exam Constitutional: Appearance: She is ill-appearing. Cardiovascular: Rate and Rhythm: Normal rate and regular rhythm. Heart sounds: Normal heart sounds. No murmur heard. No gallop. Pulmonary: Effort: No respiratory distress. Breath sounds: Normal breath sounds. No wheezing. Skin: General: Skin is warm. Findings: No rash. Neurological: Mental Status: She is alert. Medications: Scheduled PRN Scheduled Meds[2] PRN Meds[3] Continuous Continuous Meds[4] Assessment Data: (CAT1) Reviewed 2 notes from different specialty or health system (each=1). (CAT1) Reviewed 2 labs/studies ordered by another provider not previously counted (each=1, panels count as 1). (LOW: 2x CAT1 or independent historian MOD: 3x CAT1 or 1x CAT3 EXTENSIVE: 3x CAT1 and 1x CAT3) Acute, acute on chronic, unstable/uncontrolled chronic problems/diagnoses: Right eye vision loss-right CRAO Bilateral carotid artery disease Status post left carotid endarterectomy 05/29/2025 Right renal artery stenosis Acute right lacunar stroke Ascending aortic ulcer and atherosclerosis Stable chronic problems affecting care, new non-acute diagnoses: Hypertension JESUS on CKD 3 Hypothyroidism GERD Depression Plan As a result of the above findings & factors, the following mgmt was pursued: - Patient was admitted to the hospital for further evaluation of right eye vision loss. The suspect to be related to right CRAO due to atheroembolism. On further workup patient was found to have bilateral carotid artery disease. Underwent left carotid endarterectomy on 05/29/2025. Recommended for DAPT, after being found to be a Plavix nonresponder was placed on aspirin and Brilinta. Continue indefinitely. -Hospital stay complicated by development of new neurologic symptoms post CEA and was found to have a small right lacunar infarct. Continue DAPT as recommended, blood pressure control. -Patient was found to have right renal artery stenosis and underwent drug-coated stent on 06/05/2025. Recommended for DAPT-aspirin and Brilinta. Patient will need to follow-up with interventional cardiology as outpatient. -Blood pressures have been variable. Currently on amlodipine and Cozaar. Continue to monitor blood pressure trend. Nephrology is following and adjusting blood pressure medications as needed. - Continue thyroid replacement -Patient has been seen by physical therapy and Occupational Therapy is recommended for inpatient rehab. Care coordination is working to set this up. - am labs, replace lytes prn - delirium precautions: increase activity and limit nighttime disturbances - DVT prophylaxis: enoxaparin Advance Directive: DNR-CCA Anticipated Discharge - Date -0 to 2 days - Location -[facility] - Pending the following -authorization Total time spent (which include face to face and non face to face encounters) : 51 minutes Extended Emergency Contact Information Primary Emergency Contact: Piper Hamilton (POA) Mobile Relation: Louis Bita Holland MD Division of Hospitalist Medicine [facility] [1] Past Medical History: Diagnosis Date Disease of thyroid gland Hypertension 01/01/2024 [2] amLODIPine, 5 mg, Oral, Daily aspirin, 81 mg, Oral, Daily Or aspirin, 300 mg, Rectal, Daily atorvastatin, 80 mg, Oral, Nightly cholecalciferol, 1,000 Units, Oral, Daily enoxaparin, 40 mg, SubCUTAneous, Daily escitalopram, 10 mg, Oral, Daily levothyroxine, 112 mcg, Oral, qAM AC losartan, 25 mg, Oral, BID meclizine, 12.5 mg, Oral, Daily pantoprazole, 40 mg, Oral, Nightly sodium chloride 0.9%, 5-40 mL, IntraVENous, q12h ticagrelor, 90 mg, Oral, BID [3] PRN medications: acetaminophen OR acetaminophen, bisacodyl, hydrALAZINE, labetalol, ondansetron ODT OR [DISCONTINUED] ondansetron, polyethylene glycol (PEG) 3350, prochlorperazine OR prochlorperazine OR prochlorperazine, sodium chloride, sodium chloride 0.9% [4] Images from the original note were not included. OCCUPATIONAL THERAPY [facility] Treatment Note Name/MRN: Diana Kohli ([id number]) Date of : 1940 Age: 84 y.o. Room/Bed: 1C-130/1C-130 A Discharge Recommendation: IP Rehab Other: continue to assess Assessment Currently, Pt required MIN A for functional mobility & transfers with use of FWW + MOD cues for obstacle negotation d/t low vision deficits. Pt required MOD A for UB ADL and MAX A for LB ADL. Pt required MIN A for toilet transfer and MOD A for Pt to safely perform all aspects of toilet hygiene including clothing mgmt. Pt required MIN A for dynamic standing balance at sink level for grooming task. Pt is most limited by low vision deficits, decreased standing balance and decreased mobility hindering IND and safety with fxl tasks. Recommending IPR upon discharge in order to achieve highest level of function. Subjective Pt reclined in bed upon entry. RN approved of therapy. Pt pleasant and agreeable to OT TX. A & O x 4. Pt stated "My leg was really sore yesterday but, the more I walk it'll loose up!" Pt denied pain however, noted facial grimacing with fxl mobility task- RN notified. BASURTO/L located a chair with armrests for Pt to sit up in comfortably. Pt requested to sit up in the hardback chair with armrests at the EOS + wedge pillow placed. Call light placed within reach and all needs met. Pain: [place] Pain Ratin = Hurts little more Pain Location: RLE with mobility task Medical Precautions: No active isolations Proper PPE donned/doffed in accordance with facility standards. Fall Risk: [place] Fall Risk Score: 60 (Medium Risk) [place] Fall Risk Score: 60 (High Risk) Precautions/Restrictions: Seizure, Skin and Fall Precautions Family/Caregiver Present: none Objective ADLs LE Dressing: Max Assist- Pt required MAX A to lily slipper on RLE- Pt able to lily LLE with leg supported up on bed d/t difficulty maintaining figure four on LLE only -NOT ATTEMPTED ON RLE -d/t recent femoral sheath removal sx 06-06-25. Toileting: Min Assist, Mod Assist- Pt required MIN A for toilet transfer with physical assist for eccentric control and hand placement d/t low surface commode; Pt required MOD A for standing balance to safely perform all aspects of toilet hygiene and clothing mgmt once attend at knee level d/t decreased fxl reach. Grooming: Contact Guard, after setup UE Dressing: Mod Assist UE Bathing: Mod Assist LE Bathing: Mod Assist Bed Mobility Supine to sit: Min Assist- Pt required MIN A for trunk elevation and assist of RLE d/t discomfort with mvmt. Rolling to right: Min Assist Rolling to left: Min Assist Scooting: Min Assist HOB Elevated Transfers/Mobility Sit to stand: Min Assist Stand to sit: Min Assist Toilet: Min Assist Sitting balance: SBA Standing balance: Min Assist- Pt required MIN A for dynamic standing balance approx 3.5 minutes with focus on functional reach of 4/5 items - Pt required physical assist for improved trunk rotation and unilateral reaching with education/ demo of use of director of academic support to retrieve items at high/ low surface for increased IND and safety of task. Functional mobility: Min Assist- Pt required MIN A for functional mobility from bed <> door and 2nd trial from door to bathroom with use of FWW with physical assist for increased R step length, improved obstacle negotiation d/t low vision and increased safety turning. Device(s) used: Front wheeled walker Plan Continue acute OT per plan of care. Safety/Education Safety Safety Devices in place: All fall risk precautions in place, call light within reach, left in chair, chair alarm in place, gait belt, and nurse notified Restraints: No Education Education Given To: patient Education Provided: OT Role, Plan of Care, ADL Adaptive Strategies, Transfer Training, Energy Conservation, Orientation, Discharge Recommendations, and Benefits of Increasing Activity Education Method: Verbal, Demonstration, and Teach Back Barriers to Learning: Vision Education Outcome: Verbalized Understanding, Demonstrated Understanding, and Continued Education Needed AM-PAC AM-PAC Inpatient Daily Activity Raw Score: 15 ADL Inpatient CMS G-Code Modifier: CK Goals Patient Stated Goal: to get better Encounter Problems Encounter Problems (Active) Dressing Upper Extremities Patient will complete upper body dressing with supervision. (Slowly Progressing) Start: 05/24/25 Expected End: 06/21/25 Dressings Lower Extremities Patient will dress lower body with supervision. (Slowly Progressing) Start: 05/24/25 Expected End: 06/21/25 Grooming Patient will complete daily grooming tasks with Mod I. (Progressing) Start: 05/24/25 Expected End: 06/21/25 Toileting Patient will complete toileting tasks at standard toilet with modified independence. (Progressing) Start: 05/24/25 Expected End: 06/21/25 Transfers Patient will complete functional transfer with least restrictive device with modified independence in order to prepare for ambulation. (Progressing) Start: 05/24/25 Expected End: 06/21/25 Patient will perform bed mobility with modified independence in order to improve independence and prepare for out of bed mobility. (Progressing) Start: 05/24/25 Expected End: 06/21/25 Vision Patient will ID 3 ADL objects in bilateral visual hemispheres with min verbal cues. (Initiated) Start: 05/24/25 Expected End: 06/21/25 Therapy Time Individual Co-treatment Time In 0208 Time Out 0247 Minutes 39 Timed Code Treatment Minutes: 39 Minutes (2-ADL; 1- FUNCT ACT) SB Wall Cosigned by Marta Shah OT at 06/07/2025 10:33 AM EDT [facility] [place] [facility] Cardiology /Electrophysiology Progress Note S/p renal stenting HPI / Interval History: Diana Kohli is a 84 year old female with tobacco abuse, HTN, hypothyroid, bilateral carotid disease, proximal aortic arch saccular aneurysm. She is s/p left CEA on 05/29. Interventional cardiology was consulted for > 60% CONNER with difficulty in managing her blood pressures, which is managed by nephrology. Yesterday, she had a renal angiogram by Dr. Tran. Findings included: severe ostial right CONNER - 80%, and PCI with MOLLY was done successfully. The left renal artery is suspected to be ostially occluded based on angiogram. This morning, she is doing well. She denies any chest pain, dyspnea, palpitations, dizziness, syncope, bleeding. Right femoral site without bleeding or hematoma. She denies any back pain. BPs reviewed and are controlled. Labs stable. Assessment/Plan HF NYHA Class [] I [] II [] III [] IV []Unable to assess [x] N/A Renal artery stenosis s/p right renal artery PCI/stent Renovascular HTN - Stable. Now s/p right renal artery stent. Right femoral site stable. Blood pressures controlled. Continue aspirin and brilinta for as long as tolerated. Continue atorvastatin. Blood pressure management per nephrology. Smoking cessation. Will arrange outpatient follow up with Dr. Tran. Right femoral site discharge instructions reviewed. Medications: Scheduled Meds[1] Infusion Medications: Continuous Meds[2] Physical Examination: Vitals: 06/06/25 0400 06/06/25 0407 06/06/25 0721 06/06/25 1102 BP: 112/65 135/60 125/58 BP Location: Right arm Left arm Left arm Patient Position: Lying Sitting Sitting Pulse: 62 61 60 58 Resp: Temp: 36.7 C (98 F) 36.1 C (97 F) (!) 35.8 C (96.5 F) TempSrc: Temporal Temporal Temporal SpO2: 94% 95% 93% Weight: Height: Intake/Output Summary (Last 24 hours) at 06/06/2025 1347 Last data filed at 06/05/2025 2030 Gross per 24 hour Intake 900 ml Output -- Net 900 ml No data found. Physical Exam Vitals reviewed. Constitutional: General: She is not in acute distress. Appearance: Normal appearance. She is not diaphoretic. HENT: Head: Normocephalic. Mouth/Throat: Pharynx: No oropharyngeal exudate. Eyes: General: Right eye: No discharge. Left eye: No discharge. Extraocular Movements: Extraocular movements intact. Cardiovascular: Rate and Rhythm: Normal rate and regular rhythm. Pulses: Normal pulses. Heart sounds: Normal heart sounds. No murmur heard. No gallop. Comments: Right femoral site without bleeding or hematoma. Pulses are palpated. Pulmonary: Effort: Pulmonary effort is normal. No respiratory distress. Breath sounds: Normal breath sounds. Abdominal: General: Bowel sounds are normal. There is no distension. Palpations: Abdomen is soft. Tenderness: There is no abdominal tenderness. Musculoskeletal: General: Normal range of motion. Cervical back: Normal range of motion and neck supple. Right lower leg: No edema. Left lower leg: No edema. Skin: General: Skin is warm and dry. Capillary Refill: Capillary refill takes less than 2 seconds. Neurological: General: No focal deficit present. Mental Status: She is alert and oriented to person, place, and time. Cranial Nerves: No cranial nerve deficit. Psychiatric: Mood and Affect: Mood normal. Laboratory Tests: TROPONIN I, CONVENTIONAL SENSITIVITY No results found for: "CKTOTAL", "CKMB", "CKMBINDEX", "TROPONINI" TROPONIN I, HIGH SENSITIVITY Troponin HS Serial Baseline Date Value Ref Range Status 06/02/2025 9 <=14 ng/L Final Comment: In individuals presenting with symptoms > 2h, a baseline troponin <= 5 ng/L suggests acute cardiac injury is unlikely and further serial testing is generally not indicated. 05/30/2025 8 <=14 ng/L Final Comment: In individuals presenting with symptoms > 2h, a baseline troponin <= 5 ng/L suggests acute cardiac injury is unlikely and further serial testing is generally not indicated. 05/23/2025 9 <=14 ng/L Final Comment: In individuals presenting with symptoms > 2h, a baseline troponin <= 5 ng/L suggests acute cardiac injury is unlikely and further serial testing is generally not indicated. 04/18/2025 7 <=14 ng/L Final Comment: In individuals presenting with symptoms > 2h, a baseline troponin <= 5 ng/L suggests acute cardiac injury is unlikely and further serial testing is generally not indicated. 2h Troponin HS (Serial 2nd Troponin) Date Value Ref Range Status 06/03/2025 13 <=14 ng/L Final Comment: 2h troponin (2nd troponin) samples collected between 1h 40 min and 2h and 20 min of the baseline collection time can be utilized to interpret delta troponins as per [employer] algorithms. Samples collected outside this timeframe need to be interpreted clinically. Rising or falling troponin delta between 2 - 15 ng/L as compared to baseline value requires a 3rd serial troponin 05/30/2025 9 <=14 ng/L Final Comment: 2h troponin (2nd troponin) samples collected between 1h 40 min and 2h and 20 min of the baseline collection time can be utilized to interpret delta troponins as per [employer] algorithms. Samples collected outside this timeframe need to be interpreted clinically. Rising or falling troponin delta below 2 ng/L as compared to baseline value suggests that acute cardiac injury is unlikely. 05/23/2025 9 <=14 ng/L Final Comment: Rising or falling troponin delta below 2 ng/L as compared to baseline value suggests that acute cardiac injury is unlikely. 04/18/2025 6 <=14 ng/L Final Comment: Rising or falling troponin delta below 2 ng/L as compared to baseline value suggests that acute cardiac injury is unlikely. No results found for: "TROPDELTBASE" No results found for: "TROPHS3" No results found for: "TROPDELTSEC" Recent Labs 06/04/25 0109 06/05/25 0012 06/06/25 0006 NA 137 134* 136 K 4.2 3.9 3.5 CL 106 104 105 CO2 24 22* 22* BUN 12 13 14 CREATININE 1.10 1.19* 1.20* Recent Labs 06/04/25 0109 06/05/25 0012 06/06/25 0006 WBC 9.3 10.0 12.0* HGB 13.0 12.5 12.3 HCT 37.8 37.2 36.5 MCV 91.7 93.7 91.9 PLT 253 260 253 No results for input(s): "BNP" in the last 72 hours. No results for input(s): "TRIG", "HDL", "LDLCALC", "CHOL" in the last 72 hours. No results found for: "LDLCHOLESTER" Lab Results Component Value Date TSH 1.09 05/23/2025 EF BP Date Value Ref Range Status 04/19/2025 55 55 - 100 % Final 04/18/25 TRANSTHORACIC ECHOCARDIOGRAM (TTE) COMPLETE (CONTRAST/BUBBLE/3D PRN) 04/19/2025 12:13 PM (Final) Interpretation Summary Left Ventricle: Left ventricle size is normal. Mildly increased wall thickness. Normal left ventricular systolic function. EF by 2D Simpsons Biplane is 55%. Normal wall motion. Right Ventricle: Right ventricle size is normal. Normal systolic function. Pericardium: Evidence of prominent epicardial fat. No pericardial effusion. No significant valvular abnormalities. Technically difficult study. Signed by: Margaux Chicas MD on 04/19/2025 12:13 PM Other reports reviewed: Renal Angiogram 06/05/25: Conclusion Right renal artery ostial stenosis (80%). Suspected occluded left renal artery at ostium. Successful IVUS guided angioplasty of right renal artery stenosis with 5.00 x 20 mm Megatron drug-eluting stent, post dilated with 5.50 NC balloon. 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 Date Of Service 06/06/2025 [1] amLODIPine, 5 mg, Oral, Daily aspirin, 81 mg, Oral, Daily Or aspirin, 300 mg, Rectal, Daily atorvastatin, 80 mg, Oral, Nightly cholecalciferol, 1,000 Units, Oral, Daily enoxaparin, 40 mg, SubCUTAneous, Daily escitalopram, 10 mg, Oral, Daily levothyroxine, 112 mcg, Oral, qAM AC losartan, 25 mg, Oral, BID meclizine, 12.5 mg, Oral, Daily pantoprazole, 40 mg, Oral, Nightly sodium chloride 0.9%, 5-40 mL, IntraVENous, q12h ticagrelor, 90 mg, Oral, BID [2] Hospitalist Progress Note 06/06/2025 Subjective: Admit Date: 05/23/2025 PCP: Charlene Walker MD Room#: 1C-130/1C-130 A BRIEF HOSPITAL COURSE: Per previous hospitalist note: 84-year-old female presented with right eye vision loss on May 23. CT head no acute intracranial abnormality. CT angiography of the head neck revealed bilateral 80% stenosis of the internal carotids. Additionally patient has a shaggy plaque in the aortic arch with an anterior penetrating oral ulcer. Carotid duplex showing <50% bilaterally, possible DAISHA stenosis < 60% Neurology recommends aspirin 81 mg daily Plavix 75 mg indefinitely for now. Per neurology "platelet agg studies pending for ASA and Plavix - may need to switch to DOAC if these come back abnormal " neurology signed off 05/29 s/p carotid endarterectomy with vascular surgery 05/29-06/01 postop day 1 post right CEA patient has slurred speech and new facial droop stroke team was activated. Repeat CT head was unremarkable. Repeat MRI brain no acute intracranial findings. June 01 per neurology note right small lacunar infarct, small vessel arteriopathy. Neurology recommending continuing DAPT. Pressure control was recommended. Vascular surgery recommends no additional vascular surgical intervention. Continue aspirin statin and Plavix. Renal artery US Fusiform infrarenal abdominal aortic aneurysm (AAA) was visualized with dimensions 3.79 cm x 3.76 cm. The renal origin is not involved. There is no thrombus present. Plaque is present. No hemodynamically significant stenosis involving the left renal artery. Proximal right renal artery >60% stenosis. C/s interventional cardiology for Proximal right renal artery >60% stenosis. 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 Placed one drug stent for right renal artery NEPHROLOGY FOLLOWING 06/04 d/w with neurologist dr floyd and vascular sx resident dr mejia regarding . 06/02 per vascular sx "No reason to continue plavix as she is non-responder to the medication. Should DAPT be needed from Neurology standpoint, she will need to begin brillinta. ASA only is ok from my standpoint with regards to her surgery. ". 06/[address] Goode neurologist " Based on that I suggest continuation with DYANA "--> per Dr Winkler pt to be on monotherapy with ASA. Will stop Plavix 06/05 discussed with automatic data processing planner regarding when to expect precertification for [facility]. Dorene has pt scheduled for renal angiography -->completed the renal angiogram. 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 Placed one drug stent for right renal artery, excellent results. She will continue aspirin and plavix along with statin. She has severe atherosclerosis of her aorta and iliacs. Follow up with cardiology for peripheral arterial disease will be arranged. Cardio recommends plavix asa and statin" Most recently cardiology states patient is nonresponder to plavix and recommends asa and brilinta. Interval History: Patient seen and examined. Chart reviewed. No overnight issues. Denies fevers, chills, chest pain, shortness of breath, abdominal pain, nausea or vomiting. She denies any new vision changes, numbness, tingling, or focal weakness. Case and plan discussed with patient and bedside nurse. All questions answered. Adult diet Regular 24HR INTAKE/OUTPUT: Intake/Output Summary (Last 24 hours) at 06/06/2025 09 Last data filed at 06/05/20252029 Gross per 24 hour Intake 956.35 ml Output 5 ml Net 951.35 ml Past Medical History: Medical History[1] LABS: CBC: Recent Labs 06/04/25 0109 06/05/25 0012 06/06/25 0006 WBC 9.3 10.0 12.0* RBC 4.12 3.97 3.97 HGB 13.0 12.5 12.3 HCT 37.8 37.2 36.5 MCV 91.7 93.7 91.9 RDW 13.4 13.4 13.4 PLT 253 260 253 BMP: Recent Labs 06/04/25 0109 06/05/25 0012 06/06/25 0006 NA 137 134* 136 K 4.2 3.9 3.5 CL 106 104 105 CO2 24 22* 22* BUN 12 13 14 CREATININE 1.10 1.19* 1.20* GLUCOSE 88 98 90 CALCIUM 9.0 8.4* 8.7* ANIONGAP 7 8 9 LIVER PROFILE:No results for input(s): "AST", "ALT", "BILITOT", "ALKPHOS", "PROT" in the last 72 hours. No lab exists for component: LABALBU PT/INR: No results for input(s): "PROTIME", "INR" in the last 72 hours. CARDIAC ENZYMES: No results for input(s): "TROPONINI" in the last 72 hours. Procalcitonin: No results found for: PROCAL COVID-19 PCR: No results for input(s): "COVID19" in the last 72 hours. Objective: Vitals: BP 135/60 (BP Location: Left arm, Patient Position: Sitting) Pulse 60 Temp 36.1 C (97 F) (Temporal) Resp 18 Ht 5' 2.01" (1.575 m) Wt 185 lb (83.9 kg) SpO2 95% BMI 33.83 kg/m Pulse Ox: SpO2 Av.5 % Min: 90 % Max: 97 % Supplemental O2: O2 Flow Rate (L/min): 2 L/min Physical Exam Constitutional: General: She is not in acute distress. HENT: Head: Normocephalic and atraumatic. Mouth/Throat: Mouth: Mucous membranes are moist. Eyes: Extraocular Movements: Extraocular movements intact. Conjunctiva/sclera: Conjunctivae normal. Neck: Comments: +healing left neck incision Cardiovascular: Rate and Rhythm: Normal rate and regular rhythm. Pulmonary: Effort: Pulmonary effort is normal. Breath sounds: Normal breath sounds. Abdominal: General: There is no distension. Palpations: Abdomen is soft. Tenderness: There is no abdominal tenderness. Musculoskeletal: General: No swelling. Skin: General: Skin is warm and dry. Neurological: General: No focal deficit present. Mental Status: She is alert and oriented to person, place, and time. Cranial Nerves: No cranial nerve deficit. Sensory: No sensory deficit. Comments: +globally weak Psychiatric: Mood and Affect: Mood normal. Judgment: Judgment normal. Medications: Scheduled PRN Scheduled Meds[2] PRN Meds[3] Continuous Continuous Meds[4] Assessment Plan Right renal artery stenosis -Status post drug-coated stent right renal artery 06/05 -Continue on Brilinta and aspirin and statin -Follow-up with cardiology outpatient Bilateral carotid artery disease - s/p left carotid endarterectomy on 05/29 Slurred speech and new facial droop status post left CEA that has resolved Acute small right lacunar infarct - seen by neurology - Uncontrolled hypertension contributing - renal artery stenosis s/p stent Vision change - due to acute right CRAO, recent L CRAO - suspected due to atheroembolism Ascending aortic ulcer and atherosclerosis Hypertension - BP labile but improved JESUS on CKD stage III - nephrology following GERD Thyroid disease Advance Directive: DNR-CCA Anticipated Discharge - Date - DC [facility] 06/07 Extended Emergency Contact Information Primary Emergency Contact: Piper Hamilton (POA) Mobile Relation: Louis Bahena Keyanna Pereira DO Division of Hospitalist Medicine Acute [facility] [1] Past Medical History: Diagnosis Date Disease of thyroid gland Hypertension 01/01/2024 [2] amLODIPine, 5 mg, Oral, Daily aspirin, 81 mg, Oral, Daily Or aspirin, 300 mg, Rectal, Daily atorvastatin, 80 mg, Oral, Nightly atropine, , , cholecalciferol, 1,000 Units, Oral, Daily enoxaparin, 40 mg, SubCUTAneous, Daily escitalopram, 10 mg, Oral, Daily levothyroxine, 112 mcg, Oral, qAM AC losartan, 25 mg, Oral, BID meclizine, 12.5 mg, Oral, Daily pantoprazole, 40 mg, Oral, Nightly sodium chloride 0.9%, 5-40 mL, IntraVENous, q12h ticagrelor, 90 mg, Oral, BID [3] PRN medications: acetaminophen OR acetaminophen, atropine, bisacodyl, hydrALAZINE, labetalol, ondansetron ODT OR [DISCONTINUED] ondansetron, polyethylene glycol (PEG) 3350, prochlorperazine OR prochlorperazine OR prochlorperazine, sodium chloride, sodium chloride 0.9% [4] Images from the original note were not included. PHYSICAL THERAPY [facility] Treatment Note Name/MRN: Diana Kohli ([id number]) Date of : 1940 Age: 84 y.o. Room/Bed: 1C-130/1C-130 A Discharge Recommendation: IP Rehab Other: TBD Assessment Pt demonstrated increased gait distance and endurance with ambulation. Pt has NBOS and small step length with ambulation and requires VC to correct. Pt requires CGA for bed mobility, hCi/CGA for STS from bed level, and required CGA for 90ft c FWW. Pt would benefit from IPR placement if leaving soon, pt cont to progress towards goals, depending on length of stay pt may benefit from HHPT with 24hr assist (pt lives alone). Subjective Pt lying supine on L side upon arrival. Pt agreeable to PT. Pain: Pt denies any current pain. Medical Precautions: No active isolations Proper PPE donned/doffed in accordance with facility standards. Fall Risk: Ny Fall Risk Score: 60 (Medium Risk) Ny Fall Risk Score: 60 (High Risk) Precautions/Restrictions: Lines/Drains/Airways: IV, tele Overall Cognitive Status: WNL Overall Orientation Status: Oriented to Situation and Oriented to Person Family/Caregiver Present: none Objective Bed Mobility Supine to sit: SBA Sit to supine: Contact Guard Scooting: SBA HOB Elevated Use of bed rail(s) Pt requires increased time for supine-sit and sit-supine with use of bed rails and HOB elevated. Transfers/Mobility Sit to stand: Contact Guard, Min Assist Stand to sit: Contact Guard, Min Assist Standing balance: Contact Guard Pt required cues for placement of hands prior to STS on bed, good carryover. Pt required Chi for increased anterior lean for STS, requires CGA for standing balance with B UE support. Device(s) used: Front wheeled walker Ambulation Ambulation 1 Assistive device(s) used: Front wheeled walker Assist level: Contact Guard Distance (ft): 90 Quality of gait: reciprocal stepping, narrow DELILAH, slow dewey Pt demonstrates NBOS and small steps, VC provided for increase DELILAH and step length. Good carryover but cont small step with fatigue. Balance During Session: Posture: fair Sitting - Static: SBA Sitting - Dynamic: SBA Standing - Static: Contact Guard Standing - Dynamic: Contact Guard, Min Assist Pt requires CGA for sitting EOB anf performing exercises. Exercises Exercises Hip Flexion: Seated marches x10 B LE Knee Long Arc Quad: Seated x10 B LE Ankle Pumps: Seated x10 B LE Other exercises Other exercises?: No Plan Continue acute PT per plan of care. Safety/Education Safety Safety Devices in place: All fall risk precautions in place, call light within reach, bed alarm in place, gait belt, and nurse notified Restraints: No Education Educated on importance of getting OOB with staff to complete more walks this date. Outcome Measures AM-PAC AM-PAC Inpatient Mobility Raw Score (No Stairs) : 17 JH-HLM -HLM Scale: Walked 25 ft or more (i.e. walked outside of room) Goals Patient Stated Goal: To get some rest Encounter Problems Encounter Problems (Active) Balance Patient will maintain dynamic standing balance for 2 minutes with modified independence in order to demonstrate decreased risk of falling. (Progressing) Start: 05/24/25 Expected End: 06/21/25 Balance Patient will maintain static standing balance for 3 minutes with modified independence in order to demonstrate decreased risk of falling. (Progressing) Start: 05/24/25 Expected End: 06/21/25 Mobility Patient will ambulate 50 feet with modified independence and rolling walker in order to improve safety and independence with mobility. (Progressing) Start: 05/24/25 Expected End: 06/21/25 Patient will ascend and descend 8 stairs with one railing and modified independence in order to safely negotiate home. (Not Addressed) Start: 05/24/25 Expected End: 06/21/25 Transfers Patient will perform bed mobility with independence in order to improve independence and prepare for out of bed mobility. (Progressing) Start: 05/24/25 Expected End: 06/21/25 Patient will complete sit to stand transfer with independence to none in order to improve safety and prepare for out of bed mobility. (Progressing) Start: 05/24/25 Expected End: 10/04/25 Therapy Time Individual Co-treatment Time In 0837 Time Out 0900 Minutes 23 Timed Code Treatment Minutes: (gtx1 fax1) Drea Gordon PTA Cosigned by Ale Osborne, PT at 06/06/2025 9:41 AM EDT [facility] Progress Note Subjective/ 84 y.o. year old female who we are seeing in consultation for uncontrolled HTN. Interval History BP continues to be labile but improved. Laying in bed. Denies any issues with urination. Denies any SOB, chest pain or headache S/p Renal art cath yest with Rt art PCI. ROS Otherwise negative No interval changes to [facility]. All interval notes/labs/imaging reviewed. Objective/ Vitals: 06/06/25 0050 06/06/25 0055 06/06/25 0400 06/06/25 0407 BP: (!) 134/48 125/73 112/65 BP Location: Right arm Patient Position: Lying Pulse: 57 62 62 61 Resp: 24 17 20 Temp: 36.7 C (98 F) TempSrc: Temporal SpO2: 93% 94% 94% Weight: Height: 24HR INTAKE/OUTPUT: Intake/Output Summary (Last 24 hours) at 06/06/2025 0700 Last data filed at 06/05/2025 2030 Gross per 24 hour Intake 1256.35 ml Output 5 ml Net 1251.35 ml Physical Exam Constitutional: Appearance: Normal appearance. HENT: Head: Normocephalic and atraumatic. Mouth/Throat: Mouth: Mucous membranes are moist. Eyes: General: No scleral icterus. Cardiovascular: Rate and Rhythm: Normal rate and regular rhythm. Pulmonary: Effort: Pulmonary effort is normal. Breath sounds: Normal breath sounds. Comments: Breathing comfortably on RA Abdominal: General: Bowel sounds are normal. Palpations: Abdomen is soft. Musculoskeletal: Cervical back: Neck supple. Right lower leg: No edema. Left lower leg: No edema. Skin: General: Skin is warm and dry. Neurological: Mental Status: She is alert. Mental status is at baseline. Scheduled Meds:Scheduled Meds[1] Continuous Infusions:Continuous Meds[2] PRN Meds:.PRN Meds[3] Data/ Recent Labs 06/04/2510806/05/25 0012 06/06/25 0006 WBC 9.3 10.0 12.0* HGB 13.0 12.5 12.3 HCT 37.8 37.2 36.5 MCV 91.7 93.7 91.9 PLT 253 260 253 Recent Labs 06/04/2510806/05/25 0012 06/06/25 0006 NA 137 134* 136 K 4.2 3.9 3.5 CL 106 104 105 CO2 24 22* 22* GLUCOSE 88 98 90 PHOS 3.1 3.9 4.5 MG 1.7 1.7 1.8 BUN 12 13 14 CREATININE 1.10 1.19* 1.20* Assessment/ Uncontrolled HTN CKD stage 3a Hyponatremia Renal artery stenosis I70.1 Hypokalemia: resolved ASVD I70.90 Bilateral carotid artery disease Acute R central retinal artery occlusion NAGMA Plan/ -BP improved since yest evening. C/w current Tx: scheduled and PRN. Monitor for development of SERENA. Renin and vamsi levels pending. Na levels fluctuating. Maintain low Na diet Limit po intake of liquids to 1200ml/day. Hypokalemia resolved s/p supplement. Cont to monitor lytes and replete PRN Rest of management per primary team Discussed with Dr. Jessica. If discharged: BMP in 3 days and f/up in clinic in 1-2 wks w labs. Please do not hesitate to call with any questions or concerns [1] amLODIPine, 5 mg, Oral, Daily aspirin, 81 mg, Oral, Daily Or aspirin, 300 mg, Rectal, Daily atorvastatin, 80 mg, Oral, Nightly atropine, , , cholecalciferol, 1,000 Units, Oral, Daily enoxaparin, 40 mg, SubCUTAneous, Daily escitalopram, 10 mg, Oral, Daily levothyroxine, 112 mcg, Oral, qAM AC losartan, 25 mg, Oral, BID meclizine, 12.5 mg, Oral, Daily pantoprazole, 40 mg, Oral, Nightly sodium chloride 0.9%, 5-40 mL, IntraVENous, q12h ticagrelor, 90 mg, Oral, BID [2] [3] PRN medications: acetaminophen OR acetaminophen, atropine, bisacodyl, hydrALAZINE, labetalol, ondansetron ODT OR [DISCONTINUED] ondansetron, polyethylene glycol (PEG) 3350, prochlorperazine OR prochlorperazine OR prochlorperazine, sodium chloride, sodium chloride 0.9% Images from the original note were not included. PHYSICAL THERAPY [facility] Name/MRN: Diana Kohli ([id number]) Date: 06/05/2025 Non-Billed Note (<5 mins) Attempted to see pt for PT. Pt agreeable. SBA for supine>sit and Min assist for transfer. Min assist for walking a few feet with the FWW. Med team in to take pt to renal angiogram. Returned pt back to bed. Will attempt PT at another date/time. Pam Dozier, PT Hospitalist Progress Note 06/05/2025 Subjective: Admit Date: 05/23/2025 PCP: Charlene Walker MD Room#: [facility] Cardiac Cath Pool Room/Cath Interval History: Niece at bedside Addis reported Blood pressure is improved. Denies chest pain shortness breath abdominal pain nausea vomiting diarrhea lightheadedness dizziness syncope. Cardio has pt scheduled for renal angiography NPO diet with enteral medications 24HR INTAKE/OUTPUT: Intake/Output Summary (Last 24 hours) at 06/05/2025 1401 Last data filed at 06/05/2025 1334 Gross per 24 hour Intake 506.35 ml Output 5 ml Net 501.35 ml Past Medical History: Medical History[1] LABS: CBC: Recent Labs 06/03/25 0411 06/04/25 0109 06/05/25 0012 WBC 10.9* 9.3 10.0 RBC 4.30 4.12 3.97 HGB 13.3 13.0 12.5 HCT 39.9 37.8 37.2 MCV 92.8 91.7 93.7 RDW 13.5 13.4 13.4 PLT 270 253 260 BMP: Recent Labs 06/03/25 0410 06/04/25 0109 06/05/25 0012 NA 136 137 134* K 3.0* 4.2 3.9 CL 106 106 104 CO2 24 24 22* BUN 12 12 13 CREATININE 1.09 1.10 1.19* GLUCOSE 147* 88 98 CALCIUM 8.6* 9.0 8.4* ANIONGAP 6 7 8 LIVER PROFILE: No results for input(s): "AST", "ALT", "BILITOT", "ALKPHOS", "PROT" in the last 72 hours. No lab exists for component: LABALBU PT/INR: No results for input(s): "PROTIME", "INR" in the last 72 hours. CARDIAC ENZYMES: No results for input(s): "TROPONINI" in the last 72 hours. Procalcitonin: No results found for: PROCAL COVID-19 PCR: No results for input(s): "COVID19" in the last 72 hours. Objective: Vitals: BP 155/60 (BP Location: Right arm, Patient Position: Sitting) Pulse 55 Temp (!) 35.9 C (96.6 F) (Temporal) Resp 18 Ht 5' 2.01" (1.575 m) Wt 185 lb (83.9 kg) SpO2 90% BMI 33.83 kg/m Pulse Ox: SpO2 Av.6 % Min: 90 % Max: 98 % Supplemental O2: O2 Flow Rate (L/min): 3 L/min Physical Exam HENT: Head: Normocephalic and atraumatic. Cardiovascular: Rate and Rhythm: Normal rate and regular rhythm. Pulmonary: Effort: Pulmonary effort is normal. No respiratory distress. Abdominal: General: Bowel sounds are normal. Palpations: Abdomen is soft. Tenderness: There is no abdominal tenderness. Neurological: Mental Status: She is alert and oriented to person, place, and time. Medications: Scheduled PRN Scheduled Meds[2] PRN Meds[3] Continuous Continuous Meds[4] Assessment 84-year-old female presented with right eye vision loss on May 23. CT head no acute intracranial abnormality. CT angiography of the head neck revealed bilateral 80% stenosis of the internal carotids. Additionally patient has a shaggy plaque in the aortic arch with an anterior penetrating oral ulcer. Carotid duplex showing <50% bilaterally, possible DAISHA stenosis < 60% Neurology recommends aspirin 81 mg daily Plavix 75 mg indefinitely for now. Per neurology "platelet agg studies pending for ASA and Plavix - may need to switch to DOAC if these come back abnormal " neurology signed off 05/29 s/p carotid endarterectomy with vascular surgery 05/29-06/01 postop day 1 post right CEA patient has slurred speech and new facial droop stroke team was activated. Repeat CT head was unremarkable. Repeat MRI brain no acute intracranial findings. June 01 per neurology note right small lacunar infarct, small vessel arteriopathy. Neurology recommending continuing DAPT. Pressure control was recommended. Vascular surgery recommends no additional vascular surgical intervention. Continue aspirin statin and Plavix. Renal artery US Fusiform infrarenal abdominal aortic aneurysm (AAA) was visualized with dimensions 3.79 cm x 3.76 cm. The renal origin is not involved. There is no thrombus present. Plaque is present. No hemodynamically significant stenosis involving the left renal artery. Proximal right renal artery >60% stenosis. C/s interventional cardiology for Proximal right renal artery >60% stenosis. 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 Placed one drug stent for right renal artery NEPHROLOGY FOLLOWING Right renal artery stenosis s/p one drug stent for right renal artery 06/05 Renal artery US Proximal right renal artery >60% stenosis. 06/05 s/p completed the renal angiogram. 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 Placed one drug stent for right renal artery, excellent results. plavix loaded. She will continue aspirin and plavix along with statin. She has severe atherosclerosis of her aorta and iliacs. Follow up with cardiology for peripheral arterial disease will be arranged. Bilateral carotid artery disease Small right lacunar infarct Slurred speech and new facial droop post right CEA has resolved Uncontrolled hypertension Ascending aortic ulcer/atherosclerosis Vision changes Acute R CRAO/recent L CRAO suspect large vessel atheroembolism in setting of aortic arch plaque and ulcer. Hypertension JESUS/ superimposed CKD Stage 3, JESUS resolved GERD Mood disorder Thyroid disease Continue Norvasc aspirin statin Plavix Lexapro Synthroid losartan PPI DvT prophylaxis Lovenox Disposition [facility] once blood pressure has been controlled 06/04 d/w with neurologist dr floyd and vascular sx resident dr mejia regarding . 06/02 per vascular sx "No reason to continue plavix as she is non-responder to the medication. Should DAPT be needed from Neurology standpoint, she will need to begin brillinta. ASA only is ok from my standpoint with regards to her surgery. ". 06/[address] Goode neurologist " Based on that I suggest continuation with DYANA "--> per Dr Winkler pt to be on monotherapy with ASA. Will stop Plavix 06/05 discussed with automatic data processing planner regarding when to expect precertification for [facility]. Cardio has pt scheduled for renal angiography -->completed the renal angiogram. 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 Placed one drug stent for right renal artery, excellent results. She will continue aspirin and plavix along with statin. She has severe atherosclerosis of her aorta and iliacs. Follow up with cardiology for peripheral arterial disease will be arranged. Cardio recommends plavix asa and statin Extended Emergency Contact Information Primary Emergency Contact: Alfonso BestBENIPiper Medina Mobile Relation: Louis Jessica DO Division of Hospitalist Medicine [facility] [1] Past Medical History: Diagnosis Date Disease of thyroid gland Hypertension 01/01/2024 [2] amLODIPine, 5 mg, Oral, Daily aspirin, 81 mg, Oral, Daily Or aspirin, 300 mg, Rectal, Daily atorvastatin, 80 mg, Oral, Nightly cholecalciferol, 1,000 Units, Oral, Daily clopidogrel, 300 mg, Oral, Once enoxaparin, 40 mg, SubCUTAneous, Daily escitalopram, 10 mg, Oral, Daily levothyroxine, 112 mcg, Oral, qAM AC losartan, 25 mg, Oral, BID meclizine, 12.5 mg, Oral, Daily pantoprazole, 40 mg, Oral, Nightly sodium chloride 0.9%, 5-40 mL, IntraVENous, q12h [3] PRN medications: acetaminophen OR acetaminophen, bisacodyl, hydrALAZINE, labetalol, ondansetron ODT OR [DISCONTINUED] ondansetron, polyethylene glycol (PEG) 3350, prochlorperazine OR prochlorperazine OR prochlorperazine, sodium chloride, sodium chloride 0.9% [4] Plan for renal angiogram today. Procedure, risk and benefits as well as alternative were discussed with patient and patient niece at bedside. Patient and patient niece agreeable. Code status was discussed and will be full code for the procedure and will be changed back to DNR CCA. Hospitalist Progress Note 06/05/2025 Subjective: Admit Date: 05/23/2025 PCP: Charlene Walker MD Room#: 1C-130/[facility]130 A Interval History: Niece at bedside Addis reported Blood pressure is improved. Denies chest pain shortness breath abdominal pain nausea vomiting diarrhea lightheadedness dizziness syncope. Cardio has pt scheduled for renal angiography Adult diet Regular; Low Sodium (2 gm) 24HR INTAKE/OUTPUT: Intake/Output Summary (Last 24 hours) at 06/05/2025 0856 Last data filed at 06/04/20252014 Gross per 24 hour Intake 750 ml Output -- Net 750 ml Past Medical History: Medical History[1] LABS: CBC: Recent Labs 06/03/25 04106/04/25 0109 06/05/25 0012 WBC 10.9* 9.3 10.0 RBC 4.30 4.12 3.97 HGB 13.3 13.0 12.5 HCT 39.9 37.8 37.2 MCV 92.8 91.7 93.7 RDW 13.5 13.4 13.4 PLT 270 253 260 BMP: Recent Labs 06/03/25 0410 06/04/25 0109 06/05/25 0012 NA 136 137 134* K 3.0* 4.2 3.9 CL 106 106 104 CO2 24 24 22* BUN 12 12 13 CREATININE 1.09 1.10 1.19* GLUCOSE 147* 88 98 CALCIUM 8.6* 9.0 8.4* ANIONGAP 6 7 8 LIVER PROFILE: No results for input(s): "AST", "ALT", "BILITOT", "ALKPHOS", "PROT" in the last 72 hours. No lab exists for component: LABALBU PT/INR: No results for input(s): "PROTIME", "INR" in the last 72 hours. CARDIAC ENZYMES: No results for input(s): "TROPONINI" in the last 72 hours. Procalcitonin: No results found for: PROCAL COVID-19 PCR: No results for input(s): "COVID19" in the last 72 hours. Objective: Vitals: BP 130/68 (BP Location: Left arm, Patient Position: Sitting) Pulse 67 Temp (!) 35.9 C (96.6 F) (Temporal) Resp 17 Ht 5' 2.01" (1.575 m) Wt 185 lb (83.9 kg) SpO2 95% BMI 33.83 kg/m Pulse Ox: SpO2 Av.7 % Min: 93 % Max: 98 % Supplemental O2: O2 Flow Rate (L/min): 2 L/min Physical Exam HENT: Head: Normocephalic and atraumatic. Cardiovascular: Rate and Rhythm: Normal rate and regular rhythm. Pulmonary: Effort: Pulmonary effort is normal. No respiratory distress. Abdominal: General: Bowel sounds are normal. Palpations: Abdomen is soft. Tenderness: There is no abdominal tenderness. Neurological: Mental Status: She is alert and oriented to person, place, and time. Medications: Scheduled PRN Scheduled Meds[2] PRN Meds[3] Continuous Continuous Meds[4] Assessment 84-year-old female presented with right eye vision loss on May 23. CT head no acute intracranial abnormality. CT angiography of the head neck revealed bilateral 80% stenosis of the internal carotids. Additionally patient has a shaggy plaque in the aortic arch with an anterior penetrating oral ulcer. Carotid duplex showing <50% bilaterally, possible DAISHA stenosis < 60% Neurology recommends aspirin 81 mg daily Plavix 75 mg indefinitely for now. Per neurology "platelet agg studies pending for ASA and Plavix - may need to switch to DOAC if these come back abnormal " neurology signed off 05/29 s/p carotid endarterectomy with vascular surgery 05/29-06/01 postop day 1 post right CEA patient has slurred speech and new facial droop stroke team was activated. Repeat CT head was unremarkable. Repeat MRI brain no acute intracranial findings. June 01 per neurology note right small lacunar infarct, small vessel arteriopathy. Neurology recommending continuing DAPT. Pressure control was recommended. Vascular surgery recommends no additional vascular surgical intervention. Continue aspirin statin and Plavix. Renal artery US Fusiform infrarenal abdominal aortic aneurysm (AAA) was visualized with dimensions 3.79 cm x 3.76 cm. The renal origin is not involved. There is no thrombus present. Plaque is present. No hemodynamically significant stenosis involving the left renal artery. Proximal right renal artery >60% stenosis. C/s interventional cardiology for Proximal right renal artery >60% stenosis. --> Cardio has pt scheduled for renal angiography NEPHROLOGY FOLLOWING Right renal artery stenosis Renal artery US Proximal right renal artery >60% stenosis. Bilateral carotid artery disease Small right lacunar infarct Slurred speech and new facial droop post right CEA has resolved Uncontrolled hypertension Ascending aortic ulcer/atherosclerosis Vision changes Acute R CRAO/recent L CRAO suspect large vessel atheroembolism in setting of aortic arch plaque and ulcer. Hypertension JESUS/ superimposed CKD Stage 3, JESUS resolved GERD Mood disorder Thyroid disease Continue Norvasc aspirin statin Plavix Lexapro Synthroid losartan PPI DvT prophylaxis Lovenox Disposition [facility] once blood pressure has been controlled 06/04 d/w with neurologist dr floyd and vascular sx resident dr mejia regarding . 06/02 per vascular sx "No reason to continue plavix as she is non-responder to the medication. Should DAPT be needed from Neurology standpoint, she will need to begin brillinta. ASA only is ok from my standpoint with regards to her surgery. ". 06/[address] Goode neurologist " Based on that I suggest continuation with DYANA "--> per Dr Winkler pt to be on monotherapy with ASA. Will stop Plavix 06/05 discussed with automatic data processing planner regarding when to expect precertification for [facility]. Cardio has pt scheduled for renal angiography Extended Emergency Contact Information Primary Emergency Contact: Piper Hamilton (POA) Mobile Relation: Louis Iris Jessica DO Division of Hospitalist Medicine [facility] [1] Past Medical History: Diagnosis Date Disease of thyroid gland Hypertension 01/01/2024 [2] amLODIPine, 5 mg, Oral, Daily aspirin, 81 mg, Oral, Daily Or aspirin, 300 mg, Rectal, Daily atorvastatin, 80 mg, Oral, Nightly cholecalciferol, 1,000 Units, Oral, Daily enoxaparin, 40 mg, SubCUTAneous, Daily escitalopram, 10 mg, Oral, Daily levothyroxine, 112 mcg, Oral, qAM AC losartan, 25 mg, Oral, BID meclizine, 12.5 mg, Oral, Daily pantoprazole, 40 mg, Oral, Nightly sodium chloride 0.9%, 5-40 mL, IntraVENous, q12h [3] PRN medications: acetaminophen OR acetaminophen, bisacodyl, hydrALAZINE, labetalol, ondansetron ODT OR [DISCONTINUED] ondansetron, polyethylene glycol (PEG) 3350, prochlorperazine OR prochlorperazine OR prochlorperazine, sodium chloride, sodium chloride 0.9% [4] Nutrition update completed. Chart reviewed. Patient to be monitored and followed by the diet natural gas technician. VICK Beckman [facility] Nephrology Progress Note Subjective/ 84 y.o. year old female who we are seeing in consultation for uncontrolled HTN. Interval History BP continues to be labile Laying in bed. Denies any issues with urination. Denies any SOB, chest pain or headache ROS Otherwise negative No interval changes to [facility]. All interval notes/labs/imaging reviewed. Objective/ Vitals: 06/04/25 19106/04/25 1948 06/04/25 2349 06/05/25 0342 BP: (!) 191/83 (!) 169/82 146/94 125/66 BP Location: Right arm Right arm Right arm Patient Position: Lying Sitting Sitting Pulse: 57 77 64 Resp: 16 16 16 Temp: 36.3 C (97.4 F) (!) 35.9 C (96.6 F) (!) 35.6 C (96.1 F) TempSrc: Temporal Temporal Temporal SpO2: 94% 98% 94% Weight: Height: 24HR INTAKE/OUTPUT: Intake/Output Summary (Last 24 hours) at 06/05/2025 0633 Last data filed at 06/04/20252014 Gross per 24 hour Intake 750 ml Output -- Net 750 ml Physical Exam Constitutional: Appearance: Normal appearance. HENT: Head: Normocephalic and atraumatic. Mouth/Throat: Mouth: Mucous membranes are moist. Eyes: General: No scleral icterus. Cardiovascular: Rate and Rhythm: Normal rate and regular rhythm. Pulmonary: Effort: Pulmonary effort is normal. Breath sounds: Normal breath sounds. Comments: Breathing comfortably on RA Abdominal: General: Bowel sounds are normal. Palpations: Abdomen is soft. Musculoskeletal: Cervical back: Neck supple. Right lower leg: No edema. Left lower leg: No edema. Skin: General: Skin is warm and dry. Neurological: Mental Status: She is alert. Mental status is at baseline. 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 Noted results of renal art doppler. Cards consult pending. Pt would need CTA vs angio to eval further for possible intervention. Given advanced age and possibly lower renal function than as measured by creat, would prefer to minimize contrast exposure. Given the labile blood pressures we will not increase the antihypertensive medications at this time. Continue as needed hydralazine. Renin and vamsi levels in process Low suspicion for pheochromocytoma given erratic readings, no associated tachycardia or other symptoms. Ensure adequate rate control of pain, discomfort. Denies any. Na levels declining: encourage po intake of protein/solutes. If levels drop further, will request urine studies. Maintain low Na diet Limit po intake of liquids to 1200ml/day. -Hypokalemia resolved s/p supplementation yesterday Cont to monitor lytes and replete PRN -Rest of management per primary team Discussed with Dr. Jessica. We will follow. Please do not hesitate to call with any questions or concerns Update: Angiogram found that the patient had significant stenosis of Rt Renal art. At origin: stented. Lt renal art appeared to be chronically occluded. Ivf started for 1L @70ml/hr. Asked nurse to notify in case the patient's oxygen requirements increase or she becomes short of breath. [1] amLODIPine, 5 mg, Oral, Daily aspirin, 81 mg, Oral, Daily Or aspirin, 300 mg, Rectal, Daily atorvastatin, 80 mg, Oral, Nightly cholecalciferol, 1,000 Units, Oral, Daily enoxaparin, 40 mg, SubCUTAneous, Daily escitalopram, 10 mg, Oral, Daily levothyroxine, 112 mcg, Oral, qAM AC losartan, 25 mg, Oral, BID meclizine, 12.5 mg, Oral, Daily pantoprazole, 40 mg, Oral, Nightly sodium chloride 0.9%, 5-40 mL, IntraVENous, q12h [2] [3] PRN medications: acetaminophen OR acetaminophen, bisacodyl, hydrALAZINE, labetalol, ondansetron ODT OR [DISCONTINUED] ondansetron, polyethylene glycol (PEG) 3350, prochlorperazine OR prochlorperazine OR prochlorperazine, sodium chloride, sodium chloride 0.9% [facility] Progress Note Subjective/ 84 y.o. year old female who we are seeing in consultation for uncontrolled HTN. Interval History BP continues to be labile Laying in bed. Denies any issues with urination. Systolic of greater than 200 this morning. Denies any SOB, chest pain or MADRID ROS Otherwise negative No interval changes to [facility]. All interval notes/labs/imaging reviewed. Objective/ Vitals: 06/04/25 0900 06/04/25 0930 06/04/25 1000 06/04/25 1131 BP: 141/51 (!) 159/130 104/51 (!) 103/49 BP Location: Left arm Patient Position: Sitting Pulse: 56 Resp: Temp: (!) 35.1 C (95.2 F) TempSrc: Temporal SpO2: 93% Weight: Height: 24HR INTAKE/OUTPUT: Intake/Output Summary (Last 24 hours) at 06/04/2025 1316 Last data filed at 06/04/2025 0930 Gross per 24 hour Intake 900 ml Output -- Net 900 ml Physical Exam Constitutional: Appearance: Normal appearance. HENT: Head: Normocephalic and atraumatic. Mouth/Throat: Mouth: Mucous membranes are moist. Eyes: General: No scleral icterus. Cardiovascular: Rate and Rhythm: Normal rate and regular rhythm. Pulmonary: Effort: Pulmonary effort is normal. Breath sounds: Normal breath sounds. Comments: Breathing comfortably on RA Abdominal: General: Bowel sounds are normal. Palpations: Abdomen is soft. Musculoskeletal: Cervical back: Neck supple. Right lower leg: No edema. Left lower leg: No edema. Skin: General: Skin is warm and dry. Neurological: Mental Status: She is alert. Mental status is at baseline. Psychiatric: Mood and Affect: Mood normal. 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 Continue as needed hydralazine. Renin and vamsi levels in process S/p renal artery duplex scan this AM, follow up on results Low suspicion for pheochromocytoma given erratic readings, no associated tachycardia or other symptoms. Ensure adequate rate control of pain, discomfort. Denies any. Maintain low Na diet -Hypokalemia resolved s/p supplementation yesterday Cont to monitor lytes and replete PRN -Rest of management per primary team Plan d/w patient and primary team Discussed with Dr. Jessica. We will follow. Please do not hesitate to call with any questions or concerns. [1] amLODIPine, 5 mg, Oral, Daily aspirin, 81 mg, Oral, Daily Or aspirin, 300 mg, Rectal, Daily atorvastatin, 80 mg, Oral, Nightly cholecalciferol, 1,000 Units, Oral, Daily clopidogrel, 75 mg, Oral, Daily enoxaparin, 40 mg, SubCUTAneous, Daily escitalopram, 10 mg, Oral, Daily levothyroxine, 112 mcg, Oral, qAM AC losartan, 25 mg, Oral, BID meclizine, 12.5 mg, Oral, Daily pantoprazole, 40 mg, Oral, Nightly sodium chloride 0.9%, 5-40 mL, IntraVENous, q12h [2] [3] PRN medications: acetaminophen OR acetaminophen, bisacodyl, hydrALAZINE, labetalol, ondansetron ODT OR [DISCONTINUED] ondansetron, polyethylene glycol (PEG) 3350, prochlorperazine OR prochlorperazine OR prochlorperazine, sodium chloride, sodium chloride 0.9% Hospitalist Progress Note 06/04/2025 Subjective: Admit Date: 05/23/2025 PCP: Charlene Walker MD Room#: 1C-130/1C-130 A Interval History: Denies chest pain shortness of breath abdominal pain nausea vomiting diarrhea lightheadedness dizziness syncope. Systolic blood pressure 200 this morning. Discussed with Dr. Lord and RN case, antihypertensive agents are being adjusted for better blood pressure control. Adult diet Regular; Low Sodium (2 gm) 24HR INTAKE/OUTPUT: Intake/Output Summary (Last 24 hours) at 06/04/2025 0949 Last data filed at 06/04/2025 0109 Gross per 24 hour Intake 300 ml Output -- Net 300 ml Past Medical History: Medical History[1] LABS: CBC: Recent Labs 06/03/25 0411 06/04/25 0109 WBC 10.9* 9.3 RBC 4.30 4.12 HGB 13.3 13.0 HCT 39.9 37.8 MCV 92.8 91.7 RDW 13.5 13.4 PLT 270 253 BMP: Recent Labs 06/02/25 0243 06/03/25 0410 06/04/25 0109 NA 140 136 137 K 3.3* 3.0* 4.2 CL 109* 106 106 CO2 22* 24 24 BUN 9 12 12 CREATININE 0.97 1.09 1.10 GLUCOSE 86 147* 88 CALCIUM 8.5* 8.6* 9.0 ANIONGAP 9 6 7 LIVER PROFILE: No results for input(s): "AST", "ALT", "BILITOT", "ALKPHOS", "PROT" in the last 72 hours. No lab exists for component: LABALBU PT/INR: No results for input(s): "PROTIME", "INR" in the last 72 hours. CARDIAC ENZYMES: No results for input(s): "TROPONINI" in the last 72 hours. Procalcitonin: No results found for: PROCAL COVID-19 PCR: No results for input(s): "COVID19" in the last 72 hours. Objective: Vitals: BP (!) 159/130 Pulse 59 Temp (!) 35.9 C (96.6 F) (Temporal) Resp 18 Ht 5' 2.01" (1.575 m) Wt 185 lb (83.9 kg) SpO2 96% BMI 33.83 kg/m Pulse Ox: SpO2 Av.8 % Min: 95 % Max: 98 % Supplemental O2: O2 Flow Rate (L/min): 2 L/min Physical Exam HENT: Head: Normocephalic and atraumatic. Cardiovascular: Rate and Rhythm: Normal rate and regular rhythm. Pulmonary: Effort: Pulmonary effort is normal. No respiratory distress. Abdominal: General: Bowel sounds are normal. Palpations: Abdomen is soft. Tenderness: There is no abdominal tenderness. Neurological: Mental Status: She is alert and oriented to person, place, and time. Medications: Scheduled PRN Scheduled Meds[2] PRN Meds[3] Continuous Continuous Meds[4] Assessment 84-year-old female presented with right eye vision loss on May 23. CT head no acute intracranial abnormality. CT angiography of the head neck revealed bilateral 80% stenosis of the internal carotids. Additionally patient has a shaggy plaque in the aortic arch with an anterior penetrating oral ulcer. Carotid duplex showing <50% bilaterally, possible DAISHA stenosis < 60% Neurology recommends aspirin 81 mg daily Plavix 75 mg indefinitely for now. Per neurology "platelet agg studies pending for ASA and Plavix - may need to switch to DOAC if these come back abnormal " neurology signed off 05/29 s/p carotid endarterectomy with vascular surgery 05/29-06/01 postop day 1 post right CEA patient has slurred speech and new facial droop stroke team was activated. Repeat CT head was unremarkable. Repeat MRI brain no acute intracranial findings. June 01 per neurology note right small lacunar infarct, small vessel arteriopathy. Neurology recommending continuing DAPT. Pressure control was recommended. Vascular surgery recommends no additional vascular surgical intervention. Continue aspirin statin and Plavix. Renal artery US Fusiform infrarenal abdominal aortic aneurysm (AAA) was visualized with dimensions 3.79 cm x 3.76 cm. The renal origin is not involved. There is no thrombus present. Plaque is present. No hemodynamically significant stenosis involving the left renal artery. Proximal right renal artery >60% stenosis. C/s interventional cardiology for Proximal right renal artery >60% stenosis. NEPHROLOGY FOLLOWING Right renal artery stenosis Renal artery US Proximal right renal artery >60% stenosis. Bilateral carotid artery disease Small right lacunar infarct Slurred speech and new facial droop post right CEA has resolved Uncontrolled hypertension Ascending aortic ulcer/atherosclerosis Vision changes Acute R CRAO/recent L CRAO suspect large vessel atheroembolism in setting of aortic arch plaque and ulcer. Hypertension JESUS/ superimposed CKD Stage 3, JESUS resolved GERD Mood disorder Thyroid disease Continue Norvasc aspirin statin Plavix Lexapro Synthroid losartan PPI DvT prophylaxis Lovenox Disposition [facility] once blood pressure has been controlled 06/04 d/w with neurologist dr floyd and vascular sx resident dr mejia regarding . 06/02 per vascular sx "No reason to continue plavix as she is non-responder to the medication. Should DAPT be needed from Neurology standpoint, she will need to begin brillinta. ASA only is ok from my standpoint with regards to her surgery. ". 06/[address] Goode neurologist " Based on that I suggest continuation with DYANA "--> per Dr Winkler pt to be on monotherapy with ASA. Will stop Plavix Extended Emergency Contact Information Primary Emergency Contact: Piper Hamilton (POA) Mobile Relation: Louis Jessica DO Division of Hospitalist Medicine [facility] [1] Past Medical History: Diagnosis Date Disease of thyroid gland Hypertension 01/01/2024 [2] amLODIPine, 5 mg, Oral, Daily aspirin, 81 mg, Oral, Daily Or aspirin, 300 mg, Rectal, Daily atorvastatin, 80 mg, Oral, Nightly cholecalciferol, 1,000 Units, Oral, Daily clopidogrel, 75 mg, Oral, Daily enoxaparin, 40 mg, SubCUTAneous, Daily escitalopram, 10 mg, Oral, Daily levothyroxine, 112 mcg, Oral, qAM AC losartan, 25 mg, Oral, BID meclizine, 12.5 mg, Oral, Daily pantoprazole, 40 mg, Oral, Nightly sodium chloride 0.9%, 5-40 mL, IntraVENous, q12h [3] PRN medications: acetaminophen OR acetaminophen, bisacodyl, hydrALAZINE, labetalol, ondansetron ODT OR [DISCONTINUED] ondansetron, polyethylene glycol (PEG) 3350, prochlorperazine OR prochlorperazine OR prochlorperazine, sodium chloride, sodium chloride 0.9% [4] Images from the original note were not included. Speech-Language Pathology SPEECH LANGUAGE PATHOLOGY [facility] Dysphagia Treatment Note Patient Name: Diana Kohli Evaluation Date: 06/03/2025 Date of : 1940 Admission Date: 05/23/2025 7:45 PM Age: 84 y.o. Room/Bed: 1C-130/1C-130 A Subjective Patient alert and cooperative. Seen upright sitting edge of bed. Answers all basic questions with clear vocal quality. Follows all basic commands. Visitors at bedside - louis. Spoke with RN Madina who cleared pt for treatment. Current Diet: Dietary Orders (From admission, onward) Start Ordered 06/02/25 1114 Adult diet Regular Diet effective now Question: Diet type Answer: Regular 06/02/25 1113 Aspiration Precautions: - Upright positioning for all PO intake - Slow rate of intake - Small bites/sips - No straws - Assistance with meals Oxygen: Oxygen Therapy: None (Room air) Pain: Pt denies any current pain. PPE Worn: gloves Objective & Assessment Dysphagia Treatment # of Activities: 1 Dysphagia Activity 1: Assess diet tolerance Patient's oral cavity is clear. Patient consumes medications one at a time with cup sips of her Pepsi. When patient consumes single sips, there is a bolus hold prior to initiation of her swallow onset. There is no change in vocal quality or cough noted. With larger, consecutive sips, there is a delayed cough present. Patient is again re-educated to consumes only single sips at a time. Patient consumes hard solid trials with prolonged, but very functional bolus management. Patient has excellent bolus awareness and consumes extra liquids as needed to achieve full oral clearance. Patient is safely tolerating max diet level at this time. Plan & Recommendations Plan: Please re-consult if indicated. Recommend Regular solids and Thin liquids and meds as tolerated and the following precautions: - Upright positioning for all PO intake - Slow rate of intake - Small bites/sips - No straws - Assist to set-up tray as needed. Patient has achieved all acute care EXPERIMENTAL ASSEMBLER goals. Speech therapy to sign off at this time. D/C Recommendations: No follow up therapy recommended post discharge Education Education Given: swallowing strategies, diet recommendations Given To: patient, niece, and RN Response: verbalizes understanding Goals Patient Stated Goal: To have an Tajik muffin. Encounter Problems Encounter Problems (Resolved) Swallowing Patient will tolerate the least restrictive diet consistency to allow for safe consumption of daily meals (Completed) Start: 05/30/25 Expected End: 06/13/25 Resolved: 06/03/25 Patient will tolerate recommended food and liquid consistencies without clinical signs and symptoms of aspirations (Completed) Start: 05/30/25 Expected End: 06/13/25 Resolved: 06/03/25 Therapy Time EXPERIMENTAL ASSEMBLER Individual Minutes Time In: 48 Time Out: 1006 Minutes: 18 PAULINA Miller Hospitalist Progress Note 06/03/2025 Subjective: Admit Date: 05/23/2025 PCP: Charlene Walker MD Room#: 1C-130/1C-130 A Interval History: BP improved CP resolved Neg troponin Denies SOB CP ABD PAIN N/V/D FEVER CHILLS Potassium 3, potassium replacement ordered Niece at bedside Adult diet Regular 24HR INTAKE/OUTPUT: Intake/Output Summary (Last 24 hours) at 06/03/2025 1009 Last data filed at 06/03/2025 0632 Gross per 24 hour Intake -- Output 1500 ml Net -1500 ml Past Medical History: Medical History[1] LABS: CBC: Recent Labs 06/03/25 0411 WBC 10.9* RBC 4.30 HGB 13.3 HCT 39.9 MCV 92.8 RDW 13.5 PLT 270 BMP: Recent Labs 06/01/25 0253 06/02/25 0243 06/03/25 0410 NA 139 140 136 K 3.5 3.3* 3.0* CL 109* 109* 106 CO2 25 22* 24 BUN 11 9 12 CREATININE 1.01 0.97 1.09 GLUCOSE 76* 86 147* CALCIUM 8.4* 8.5* 8.6* ANIONGAP 5 9 6 LIVER PROFILE: No results for input(s): "AST", "ALT", "BILITOT", "ALKPHOS", "PROT" in the last 72 hours. No lab exists for component: LABALBU PT/INR: No results for input(s): "PROTIME", "INR" in the last 72 hours. CARDIAC ENZYMES: No results for input(s): "TROPONINI" in the last 72 hours. Procalcitonin: No results found for: PROCAL COVID-19 PCR: No results for input(s): "COVID19" in the last 72 hours. Objective: Vitals: BP 130/85 Pulse 86 Temp (!) 35.7 C (96.3 F) (Temporal) Resp 20 Ht 5' 2.01" (1.575 m) Wt 185 lb (83.9 kg) SpO2 94% BMI 33.83 kg/m Pulse Ox: SpO2 Av.6 % Min: 92 % Max: 95 % Supplemental O2: O2 Flow Rate (L/min): 2 L/min Physical Exam HENT: Head: Normocephalic and atraumatic. Cardiovascular: Rate and Rhythm: Normal rate and regular rhythm. Pulmonary: Effort: Pulmonary effort is normal. No respiratory distress. Abdominal: General: Bowel sounds are normal. Palpations: Abdomen is soft. Tenderness: There is no abdominal tenderness. Neurological: Mental Status: She is alert and oriented to person, place, and time. Medications: Scheduled PRN Scheduled Meds[2] PRN Meds[3] Continuous Continuous Meds[4] Assessment 84-year-old female presented with right eye vision loss on May 23. CT head no acute intracranial abnormality. CT angiography of the head neck revealed bilateral 80% stenosis of the internal carotids. Additionally patient has a shaggy plaque in the aortic arch with an anterior penetrating oral ulcer. Carotid duplex showing <50% bilaterally, possible DAISHA stenosis < 60% Neurology recommends aspirin 81 mg daily Plavix 75 mg indefinitely for now. Per neurology "platelet agg studies pending for ASA and Plavix - may need to switch to DOAC if these come back abnormal " neurology signed off 05/29 s/p carotid endarterectomy with vascular surgery 05/29-06/01 postop day 1 post right CEA patient has slurred speech and new facial droop stroke team was activated. Repeat CT head was unremarkable. Repeat MRI brain no acute intracranial findings. June 01 per neurology note right small lacunar infarct, small vessel arteriopathy. Neurology recommending continuing DAPT. Pressure control was recommended. Vascular surgery recommends no additional vascular surgical intervention. Continue aspirin statin and Plavix. NEPHROLOGY FOLLOWING Bilateral carotid artery disease Small right lacunar infarct Slurred speech and new facial droop post right CEA has resolved Uncontrolled hypertension Ascending aortic ulcer/atherosclerosis Vision changes Acute R CRAO/recent L CRAO suspect large vessel atheroembolism in setting of aortic arch plaque and ulcer. Hypertension JESUS/ superimposed CKD Stage 3, JESUS resolved GERD Mood disorder Thyroid disease Continue Norvasc aspirin statin Plavix Lexapro Synthroid losartan PPI DvT prophylaxis Lovenox Disposition [facility] once blood pressure has been controlled Extended Emergency Contact Information Primary Emergency Contact: Hamilton (POA)Piper Mobile Relation: Louis Jessica DO Division of Hospitalist Medicine [employer] [facility] [1] Past Medical History: Diagnosis Date Disease of thyroid gland Hypertension 01/01/2024 [2] amLODIPine, 5 mg, Oral, Daily aspirin, 81 mg, Oral, Daily Or aspirin, 300 mg, Rectal, Daily atorvastatin, 80 mg, Oral, Nightly cholecalciferol, 1,000 Units, Oral, Daily clopidogrel, 75 mg, Oral, Daily enoxaparin, 40 mg, SubCUTAneous, Daily escitalopram, 10 mg, Oral, Daily levothyroxine, 112 mcg, Oral, qAM AC [Held by provider] losartan, 25 mg, Oral, Daily meclizine, 12.5 mg, Oral, Daily pantoprazole, 40 mg, Oral, Nightly potassium chloride CR, 40 mEq, Oral, BID sodium chloride 0.9%, 5-40 mL, IntraVENous, q12h [3] PRN medications: acetaminophen OR acetaminophen, bisacodyl, hydrALAZINE, labetalol, ondansetron ODT OR [DISCONTINUED] ondansetron, polyethylene glycol (PEG) 3350, prochlorperazine OR prochlorperazine OR prochlorperazine, sodium chloride, sodium chloride 0.9% [4] Images from the original note were not included. OCCUPATIONAL THERAPY [facility] Treatment Note Name/MRN: Diana Kohli ([id number]) Date of : 1940 Age: 84 y.o. Room/Bed: 1C-130/1C-130 A Discharge Recommendation: IP Rehab Other: continue to assess Assessment OT treatment completed this date. Patient progressing well with goals. Patient continues to be fairly limited by visual deficits. Patient min A for transfers and functional mobility. Patient min A for toileting tasks. Patient min A for grooming tasks standing at sink. Patient with reports of decreased endurence. Patient is a high fall risk and not safe to discharge home. Recommending IP rehab upon discharge. Subjective Patient is finishing up with PT; agreeable to OT treatment. Pain: Pt denies any current pain. Medical Precautions: No active isolations Proper PPE donned/doffed in accordance with facility standards. Fall Risk: Ny Fall Risk Score: 70 (Medium Risk) Ny Fall Risk Score: 70 (High Risk) Precautions/Restrictions: Lines/Drains/Airways: IV, tele Family/Caregiver Present: none Objective ADLs Toileting: Min Assist- anterior hygiene; cueing for safety needed throughout Grooming: Min Assist- brushing teeth, washing hands and washing face; cueing needed due to vision. Patient needed assistance putting tooth paste on tooth brush due to not being able to see or have hand-eye coordination Bed Mobility Sit to supine: Min Assist Scooting: Min Assist HOB elevated; use of bed rail. Patient requiring assistance elevating legs back into bed. Patient with FAIR+ sitting balance. Transfers/Mobility Sit to stand: Min Assist Stand to sit: Min Assist Toilet: Min Assist Standing balance: Min Assist Functional mobility: Min Assist Patient min A for all transfers and functional mobility. Patient with FAIR standing balance. Patient requiring cueing for walker safety and standing inside of walker. Device(s) used: Front wheeled walker Plan Continue acute OT per plan of care. Safety/Education Safety Safety Devices in place: All fall risk precautions in place, call light within reach, left in bed, and nurse notified Restraints: No Education Education Given To: patient Education Provided: OT Role, Plan of Care, Precautions, and Discharge Recommendations Education Method: Verbal Barriers to Learning: None Education Outcome: Continued Education Needed AM-PAC AM-PAC Inpatient Daily Activity Raw Score: 15 ADL Inpatient CMS G-Code Modifier: CK Goals Patient Stated Goal: to get better Encounter Problems Encounter Problems (Active) Dressing Upper Extremities Patient will complete upper body dressing with supervision. (Not Addressed) Start: 05/24/25 Expected End: 06/21/25 Dressings Lower Extremities Patient will dress lower body with supervision. (Not Addressed) Start: 05/24/25 Expected End: 06/21/25 Grooming Patient will complete daily grooming tasks with Mod I. (Progressing) Start: 05/24/25 Expected End: 06/21/25 Toileting Patient will complete toileting tasks at standard toilet with modified independence. (Progressing) Start: 05/24/25 Expected End: 06/21/25 Transfers Patient will complete functional transfer with least restrictive device with modified independence in order to prepare for ambulation. (Progressing) Start: 05/24/25 Expected End: 06/21/25 Patient will perform bed mobility with modified independence in order to improve independence and prepare for out of bed mobility. (Progressing) Start: 05/24/25 Expected End: 06/21/25 Vision Patient will ID 3 ADL objects in bilateral visual hemispheres with min verbal cues. (Progressing) Start: 05/24/25 Expected End: 06/21/25 Therapy Time Individual Co-treatment Time In 903 Time Out 918 Minutes 15 Timed Code Treatment Minutes: 15 Minutes (self care- 1) Elizabeth Robert OT [facility] Progress Note Subjective/ 84 y.o. year old female who we are seeing in consultation for uncontrolled HTN. Interval History Sitting up on edge of bed, eating lunch Daughter at bedside Pt reports feeling ok Denies any SOB, chest pain or MADRID ROS Otherwise negative No interval changes to PFSH. All interval notes/labs/imaging reviewed. Objective/ Vitals: 06/02/25 1919 06/02/25 2320 06/03/25 0439 06/03/25 0707 BP: 126/99 (!) 169/62 98/70 130/85 BP Location: Left arm Left arm Patient Position: Lying Lying Pulse: 97 76 83 86 Resp: 19 18 18 20 Temp: 36.7 C (98 F) 36.8 C (98.2 F) 37 C (98.6 F) (!) 35.7 C (96.3 F) TempSrc: Temporal Temporal Temporal Temporal SpO2: 94% 92% 95% 94% Weight: Height: 24HR INTAKE/OUTPUT: Intake/Output Summary (Last 24 hours) at 06/03/2025 0912 Last data filed at 06/03/2025 0632 Gross per 24 hour Intake -- Output 1500 ml Net -1500 ml Physical Exam Constitutional: Appearance: Normal appearance. HENT: Head: Normocephalic and atraumatic. Mouth/Throat: Mouth: Mucous membranes are moist. Eyes: General: No scleral icterus. Cardiovascular: Rate and Rhythm: Normal rate and regular rhythm. Pulmonary: Effort: Pulmonary effort is normal. Breath sounds: Normal breath sounds. Comments: Breathing comfortably on RA Abdominal: General: Bowel sounds are normal. Palpations: Abdomen is soft. Musculoskeletal: Cervical back: Neck supple. Right lower leg: No edema. Left lower leg: No edema. Skin: General: Skin is warm and dry. Neurological: Mental Status: She is alert. Mental status is at baseline. Psychiatric: Mood and Affect: Mood normal. Scheduled Meds:Scheduled Meds[1] Continuous Infusions:Continuous Meds[2] PRN Meds:.PRN Meds[3] Data/ Recent Labs 06/03/25 0411 WBC 10.9* HGB 13.3 HCT 39.9 MCV 92.8 PLT 270 Recent Labs 06/01/25 0253 06/02/25 0243 06/03/25 0410 NA 139 140 136 K 3.5 3.3* 3.0* CL 109* 109* 106 CO2 25 22* 24 GLUCOSE 76* 86 147* PHOS 2.5 2.9 2.9 MG 1.8 1.8 1.7 BUN 11 9 12 CREATININE 1.01 0.97 1.09 Assessment/ Uncontrolled HTN CKD stage 3a Hypokalemia Bilateral carotid artery disease Acute R central retinal artery occlusion [facility] Plan/ -BP labile, SBP ranging from 90's to 220's over past 24 hours Resumed on home amlodipine 5 mg/day yesterday, c/w same Start on losartan 25 mg BID Renin and vamsi levels ordered Check renal artery duplex scan in AM to evaluate for possible renal artery stenosis given labile BP Maintain low Na diet -K noted, replete with 40 mEq po Kcl BID x 2 doses -Rest of management per primary team Plan d/w patient and primary team We will follow. Please do not hesitate to call with any questions or concerns. SEMAJ Horton, PAKeiry [facility] Office This note is not finalized until authorized by Attending physician. [1] amLODIPine, 5 mg, Oral, Daily aspirin, 81 mg, Oral, Daily Or aspirin, 300 mg, Rectal, Daily atorvastatin, 80 mg, Oral, Nightly cholecalciferol, 1,000 Units, Oral, Daily clopidogrel, 75 mg, Oral, Daily enoxaparin, 40 mg, SubCUTAneous, Daily escitalopram, 10 mg, Oral, Daily levothyroxine, 112 mcg, Oral, qAM AC [Held by provider] losartan, 25 mg, Oral, Daily meclizine, 12.5 mg, Oral, Daily pantoprazole, 40 mg, Oral, Nightly potassium chloride CR, 40 mEq, Oral, BID sodium chloride 0.9%, 5-40 mL, IntraVENous, q12h [2] [3] PRN medications: acetaminophen OR acetaminophen, bisacodyl, hydrALAZINE, labetalol, ondansetron ODT OR [DISCONTINUED] ondansetron, polyethylene glycol (PEG) 3350, prochlorperazine OR prochlorperazine OR prochlorperazine, sodium chloride, sodium chloride 0.9% Cosigned by Raquel Lord MD at 06/03/2025 2:35 PM EDT Associated attestation - Raquel Lord MD - 06/03/2025 2:35 PM EDT Patient was seen and examined by me. Notes reviewed and plan discussed with the PA. Agree with above note except Any variance is noted below. Continues to have significant fluctuations in blood pressure. Went into hypertensive urgency range and required additional doses of hydralazine. Patient remained asymptomatic. Given the variation, they are requesting arterial Doppler renin/Vamsi levels. Initiated on losartan to help with blood pressure potassium levels. Request the medication twice daily given its short of life. Continue to replace potassium aggressively. Monitor and treat given the risk of arrhythmias. Discussed in detail with patient's niece present by bedside. Raquel Lord MD [facility] [phone] Images from the original note were not included. PHYSICAL THERAPY [facility] Treatment Note Name/MRN: Diana Kohli ([id number]) Date of : 1940 Age: 84 y.o. Room/Bed: 1C-130/1C-130 A Discharge Recommendation: IP Rehab Other: TBD Assessment Pt progressing towards PT goals, still requiring assist with functional mobility & demonstrating limited gait endurance. Rec IPR at disch. Subjective Pt asleep in bed, awakens to verbal stim & agreeable to PT. Pain: Pt denies any current pain. Medical Precautions: No active isolations Proper PPE donned/doffed in accordance with facility standards. Fall Risk: Ny Fall Risk Score: 70 (Medium Risk) Ny Fall Risk Score: 70 (High Risk) Precautions/Restrictions: Lines/Drains/Airways: IV, tele Overall Cognitive Status: WFL Overall Orientation Status: Oriented to Place, Oriented to Situation, and Oriented to Person Family/Caregiver Present: none Objective Bed Mobility Supine to sit: Contact Guard Use of bed rail(s) Transfers/Mobility Sit to stand: Min Assist Stand to sit: Min Assist Fair eccentric control with stand-sit Device(s) used: Front wheeled walker Ambulation Ambulation 1 Assistive device(s) used: Front wheeled walker Assist level: Contact Guard Distance (ft): 45 ft x 2-short standing rest break between gait cycles Quality of gait: uneven step length, narrow DELILAH, slow dewey, ambulates with flexed trunk and FWW too far in front requiring verbal & tactile cues to stay close to FWW Plan Continue acute PT per plan of care. Safety/Education Safety Safety Devices in place: All fall risk precautions in place, gait belt, nurse notified, no alarms engaged upon entry, and Pt handed off to OT at toilet Restraints: N/A Education Education Given To: patient Education Provided: PT Role Education Method: Verbal Barriers to Learning: Education Outcome: Outcome Measures AM-PAC AM-PAC Inpatient Mobility Raw Score (No Stairs) : 16 JH-HLM JH-HLM Scale: Walked 25 ft or more (i.e. walked outside of room) Goals Patient Stated Goal: To get some rest Encounter Problems Encounter Problems (Active) Balance Patient will maintain dynamic standing balance for 2 minutes with modified independence in order to demonstrate decreased risk of falling. (Progressing) Start: 05/24/25 Expected End: 06/21/25 Balance Patient will maintain static standing balance for 3 minutes with modified independence in order to demonstrate decreased risk of falling. (Progressing) Start: 05/24/25 Expected End: 06/21/25 Mobility Patient will ambulate 50 feet with modified independence and rolling walker in order to improve safety and independence with mobility. (Progressing) Start: 05/24/25 Expected End: 06/21/25 Patient will ascend and descend 8 stairs with one railing and modified independence in order to safely negotiate home. (Not Addressed) Start: 05/24/25 Expected End: 06/21/25 Transfers Patient will perform bed mobility with independence in order to improve independence and prepare for out of bed mobility. (Progressing) Start: 05/24/25 Expected End: 06/21/25 Patient will complete sit to stand transfer with independence to none in order to improve safety and prepare for out of bed mobility. (Progressing) Start: 05/24/25 Expected End: 06/21/25 Therapy Time Individual Co-treatment Time In 08 Time Out 902 Minutes 10 Debra Gillis PT Images from the original note were not included. Speech-Language Pathology SPEECH LANGUAGE PATHOLOGY [facility] Dysphagia Treatment Note Patient Name: Diana Kohli Evaluation Date: 06/02/2025 Date of : 1940 Admission Date: 05/23/2025 7:45 PM Age: 84 y.o. Room/Bed: 1C-130/1C-130 A Subjective Patient alert and cooperative. Seen upright in bed. Answers all basic questions with hoarse vocal quality. Follows all basic commands. No visitors at bedside. Spoke with RN Madina who cleared pt for treatment. Current Diet: Dietary Orders (From admission, onward) Start Ordered 05/30/25 0921 Adult diet Easy to Chew Diet effective now Question: Diet type Answer: Easy to Chew 05/30/25 0920 Aspiration Precautions: - Upright positioning for all PO intake - Slow rate of intake - Small bites/sips - No straws per patient preference - Assistance with meals Oxygen: Oxygen Therapy: None (Room air) Pain: Pt denies any current pain. PPE Worn: gloves Objective & Assessment Dysphagia Treatment # of Activities: 1 Dysphagia Activity 1: Assess diet tolerance Patient's RN reports that patient is frustrated that she can not order an Tajik muffin on current diet level. Patient's oral cavity is clear. Patient consumes room temperature water via cup edge (patient preference) with timely swallow onset and no change in vocal quality or cough post swallow. Patient consumes hard solid with prolonged, but functional mastication, independently utilizing a liquid wash to achieve full oral clearance. Patient is appropriate for diet upgrade at this time. Plan & Recommendations Plan: ST to follow to ensure diet tolerance. Continue acute EXPERIMENTAL ASSEMBLER therapy per initial plan of care and established goals. Recommend Regular solids and Thin liquids and meds as tolerated and the following precautions: - Upright positioning for all PO intake - Slow rate of intake - Small bites/sips - No straws - Assistance with meals D/C Recommendations: to be determined Education Education Given: swallowing strategies, diet recommendations Given To: patient and RN Response: verbalizes understanding Goals Patient Stated Goal: To have an Tajik muffin Encounter Problems Encounter Problems (Active) Swallowing Patient will tolerate the least restrictive diet consistency to allow for safe consumption of daily meals (Progressing) Start: 05/30/25 Expected End: 06/13/25 Patient will tolerate recommended food and liquid consistencies without clinical signs and symptoms of aspirations (Progressing) Start: 05/30/25 Expected End: 06/13/25 Therapy Time EXPERIMENTAL ASSEMBLER Individual Minutes Time In: 1051 Time Out: 1103 Minutes: 12 PAULINA Miller Hospitalist Progress Note 06/02/2025 Subjective: Admit Date: 05/23/2025 PCP: Charlene Walker MD Room#: 1C-130/1C130 A Interval History: Overnight blood pressure ranging from 137 to greater than 200s. This morning blood pressure 205. Heart rate in the 50s. On room air. Adult diet Easy to Chew 24HR INTAKE/OUTPUT: No intake or output data in the 24 hours ending 06/02/25 0821 Past Medical History: Medical History[1] LABS: CBC: No results for input(s): "WBC", "RBC", "HGB", "HCT", "MCV", "RDW", "PLT" in the last 72 hours. BMP: Recent Labs 05/31/25 0038 06/01/25 0253 06/02/25 0243 NA 140 139 140 K 3.4* 3.5 3.3* CL 112* 109* 109* CO2 20* 25 22* BUN 13 11 9 CREATININE 1.03 1.01 0.97 GLUCOSE 74* 76* 86 CALCIUM 7.4* 8.4* 8.5* ANIONGAP 8 5 9 LIVER PROFILE: No results for input(s): "AST", "ALT", "BILITOT", "ALKPHOS", "PROT" in the last 72 hours. No lab exists for component: LABALBU PT/INR: No results for input(s): "PROTIME", "INR" in the last 72 hours. CARDIAC ENZYMES: No results for input(s): "TROPONINI" in the last 72 hours. Procalcitonin: No results found for: PROCAL COVID-19 PCR: No results for input(s): "COVID19" in the last 72 hours. Objective: Vitals: BP (!) 205/91 (BP Location: Right arm, Patient Position: Sitting) Pulse 58 Temp 36.1 C (97 F) (Temporal) Resp 19 Ht 5' 2.01" (1.575 m) Wt 185 lb (83.9 kg) SpO2 94% BMI 33.83 kg/m Pulse Ox: SpO2 Av.2 % Min: 92 % Max: 97 % Supplemental O2: O2 Flow Rate (L/min): 2 L/min Physical Exam HENT: Head: Normocephalic and atraumatic. Cardiovascular: Rate and Rhythm: Normal rate and regular rhythm. Pulmonary: Effort: Pulmonary effort is normal. No respiratory distress. Abdominal: General: Bowel sounds are normal. Palpations: Abdomen is soft. Tenderness: There is no abdominal tenderness. Neurological: Mental Status: She is alert and oriented to person, place, and time. Medications: Scheduled PRN Scheduled Meds[2] PRN Meds[3] Continuous Continuous Meds[4] Assessment 84-year-old female presented with right eye vision loss on May 23. CT head no acute intracranial abnormality. CT angiography of the head neck revealed bilateral 80% stenosis of the internal carotids. Additionally patient has a shaggy plaque in the aortic arch with an anterior penetrating oral ulcer. Carotid duplex showing <50% bilaterally, possible DAISHA stenosis < 60% Neurology recommends aspirin 81 mg daily Plavix 75 mg indefinitely for now. Per neurology "platelet agg studies pending for ASA and Plavix - may need to switch to DOAC if these come back abnormal " neurology signed off 05/29 s/p carotid endarterectomy with vascular surgery 05/29-06/01 postop day 1 post right CEA patient has slurred speech and new facial droop stroke team was activated. Repeat CT head was unremarkable. Repeat MRI brain no acute intracranial findings. June 01 per neurology note right small lacunar infarct, small vessel arteriopathy. Neurology recommending continuing DAPT. Pressure control was recommended. Vascular surgery recommends no additional vascular surgical intervention. Continue aspirin statin and Plavix. 06/02 nephrology consulted for uncontrolled hypertension. Bilateral carotid artery disease Small right lacunar infarct Slurred speech and new facial droop post right CEA has resolved Uncontrolled hypertension Ascending aortic ulcer/atherosclerosis Vision changes Acute R CRAO/recent L CRAO suspect large vessel atheroembolism in setting of aortic arch plaque and ulcer. Hypertension JESUS/ superimposed CKD Stage 3, JESUS resolved GERD Mood disorder Thyroid disease Continue Norvasc aspirin statin Plavix Lexapro Synthroid losartan PPI DT prophylaxis Lovenox Disposition summa rehab once blood pressure has been controlled Extended Emergency Contact Information Primary Emergency Contact: Piper Hamilton (POA) Mobile Relation: Louis Iris Jessica DO Division of Hospitalist Medicine [facility] [1] Past Medical History: Diagnosis Date Disease of thyroid gland Hypertension 01/01/2024 [2] [Held by provider] amLODIPine, 5 mg, Oral, Daily aspirin, 81 mg, Oral, Daily Or aspirin, 300 mg, Rectal, Daily atorvastatin, 80 mg, Oral, Nightly cholecalciferol, 1,000 Units, Oral, Daily clopidogrel, 75 mg, Oral, Daily enoxaparin, 40 mg, SubCUTAneous, Daily escitalopram, 10 mg, Oral, Daily levothyroxine, 112 mcg, Oral, qAM AC [Held by provider] losartan, 25 mg, Oral, Daily meclizine, 12.5 mg, Oral, Daily pantoprazole, 40 mg, Oral, Nightly sodium chloride 0.9%, 5-40 mL, IntraVENous, q12h [3] PRN medications: acetaminophen OR acetaminophen, bisacodyl, hydrALAZINE, labetalol, ondansetron ODT OR [DISCONTINUED] ondansetron, polyethylene glycol (PEG) 3350, prochlorperazine OR prochlorperazine OR prochlorperazine, sodium chloride, sodium chloride 0.9% [4] sodium chloride, 50 mL/hr, Last Rate: 50 mL/hr (06/01/25 0537) Images from the original note were not included. Department of Vascular Surgery Daily Progress Note ADMIT DATE: 05/23/2025 TODAY'S DATE: 06/02/2025 SUBJECTIVE: NAEON. On exam patient resting in bed. Reports having intermittent headaches, currently does not have one. Endorses having some left-sided facial numbness. Denies of any new tingling/weakness/vision changes/chest pain/shortness of breath on exam. BP better controlled overnight. ROS: Noted above unless otherwise mentioned OBJECTIVE: VITALS: Temp: [35.9 C (96.7 F)-36.7 C (98 F)] 35.9 C (96.7 F) Heart Rate: [52-82] 53 Resp: [14-22] 14 BP: (137-224)/(33-164) 167/58 INTAKE/OUTPUT: No intake or output data in the 24 hours ending 06/02/25 0706 No intake/output data recorded. No intake/output data recorded. PHYSICAL EXAM: Gen: NAD, A&Ox3, pain controlled Neck: incision c/d/I attp, no appreciable hematoma, mild ecchymosis HEENT: left facial droop, eye deviation no longer present Heart: RR Lungs: symmetric chest rise, normal work of breathing Abd: soft, non tender, non distended. Non rigid. Ext: no c/c/e no gross deformities Skin: warm, no obvious rashes, cellulitis or gross discoloration LABS -Reviewed Current Inpatient Medications Scheduled Meds:Scheduled Meds[1] Continuous Infusions:Continuous Meds[2] PRN Meds:PRN Meds[3] ASSESSMENT AND PLAN: 84 y.o. female with vision changes in setting of bilateral carotid artery disease and ascending aortic ulcer with concerns for stroke. Status post left carotid endarterectomy 05/29/[address] Vitale. No additional vascular surgical intervention planned Continue aspirin, statin, clopidogrel PRN analgesics All other medical care per primary team Vascular surgical continue to follow Case will be discussed with Dr. Vitale Reji Mejia MD Department of Surgery General Surgery Resident Pager: [phone] PAGING / [employer] Secure Chat: From -p (- weekends): [employer] Secure Chat (FIRST) or Pager above (EMERGENT/Second) From 6p-6a (-s): Find resident physician under "ACH Surgery - General" - Surgical ICU Patients: Select 'ACH GEN SURG Night Float ICU RES' or Page [id number] - Surgical Floor Patients: Select 'ACH GEN SURG Night Float Floor RES' or "Page x1799" Disclaimers: INFORMED CONSENT: The nature and purpose of the proposed treatment and/or procedure have been discussed. The risks and benefits of the proposed treatment or procedures have been reviewed. Alternatives have been reviewed in addition to the risks and benefits of not receiving treatments or undergoing procedures. Pursuant to this discussion, the patient agrees to undergo the proposed treatment or procedure. Captured images seen in this note are not a substitute for a comprehensive interpretation of the entire data set as reflected by the interpreting physician with regard to radiology, echocardiography, and other diagnostic images. This note may have been dictated using [employer] JV Edition and/or Peach Voice Recognition Feature. The document was proofread; however, unrecognized voice recognition nutrition aide errors may be present. [1] [Held by provider] amLODIPine, 5 mg, Oral, Daily aspirin, 81 mg, Oral, Daily Or aspirin, 300 mg, Rectal, Daily atorvastatin, 80 mg, Oral, Nightly cholecalciferol, 1,000 Units, Oral, Daily clopidogrel, 75 mg, Oral, Daily enoxaparin, 40 mg, SubCUTAneous, Daily escitalopram, 10 mg, Oral, Daily levothyroxine, 112 mcg, Oral, qAM AC [Held by provider] losartan, 25 mg, Oral, Daily meclizine, 12.5 mg, Oral, Daily pantoprazole, 40 mg, Oral, Nightly sodium chloride 0.9%, 5-40 mL, IntraVENous, q12h [2] sodium chloride, 50 mL/hr, Last Rate: 50 mL/hr (06/01/25 0537) [3] PRN medications: acetaminophen OR acetaminophen, bisacodyl, hydrALAZINE, labetalol, ondansetron ODT OR [DISCONTINUED] ondansetron, polyethylene glycol (PEG) 3350, prochlorperazine OR prochlorperazine OR prochlorperazine, sodium chloride, sodium chloride 0.9% Cosigned by Janeth Vitale MD at 06/02/2025 12:53 PM EDT Associated attestation - Janeth Vitale MD - 06/02/2025 12:53 PM EDT I saw and evaluated the patient. I agree with the findings and plan of care as documented in the resident s note unless otherwise noted below. Rightward gaze resolved. Mild left facial droop present however the corners of the mouth raise bilaterally when asked to smile. Incision with mild ecchymosis but no hematoma. Hypertensive. Needs better blood pressure control (<160 mmHg). No reason to continue plavix as she is non-responder to the medication. Should DAPT be needed from Neurology standpoint, she will need to begin brillinta. ASA only is ok from my standpoint with regards to her surgery. No plans for additional surgical intervention at this time. Vascular surgery will sign off. My office will arrange follow up. Please call with any questions or concerns. Janeth Vitale MD Vascular Surgery Images from the original note were not included. PHYSICAL THERAPY [facility] Treatment Note Name/MRN: Diana Kohli ([id number]) Date of : 1940 Age: 84 y.o. Room/Bed: 1C-130/1C-130 A Discharge Recommendation: IP Rehab Other: TBD Assessment Pt seen s/p L CEA 05/29/2025; goals and POC set upon initial eval remain appropriate. Pt required min assist for transfers and ambulation 40ftx2 with FWW. Pt demo good effort throughout session; intermittent cues for environment negotiation due to visual deficits. Rec IP Rehab for improved strength & balance to decrease risk for falls, & improved safety & indep in mobility to allow pt to care for self in own home. Anticipate need for multi disciplinary therapies and pt participation in intensive/3 hrs therapy/day 5 days/week. Subjective Pt up on commode with staff present and agreeable to PT tx; RN okayed session Pain: Pt denies any current pain. Medical Precautions: No active isolations Proper PPE donned/doffed in accordance with facility standards. Fall Risk: Ny Fall Risk Score: 85 (Medium Risk) Ny Fall Risk Score: 85 (High Risk) Precautions/Restrictions: Lines/Drains/Airways: IV, tele Overall Cognitive Status: WFL Overall Orientation Status: Oriented x4 Family/Caregiver Present: niece Objective Transfers/Mobility Sit to stand: Min Assist; assist to gain balance upon initial stance Stand to sit: Min Assist; cues and assist for eccentric control From commode Device(s) used: Front wheeled walker Ambulation Ambulation 1 Assistive device(s) used: Front wheeled walker Assist level: Min Assist Distance (ft): 40ft x2 Quality of gait: slow dewey, decreased step amplitude bilat, decreased upright posture; cues for FWW management and for obstacle negotiation Balance During Session: Posture: fair Sitting - Static: Independent Sitting - Dynamic: Supervision Standing - Static: Contact Guard Standing - Dynamic: Min Assist Dynamic standing balance x90 sec with reaching multi directions outside DELILAH with 0-1 UE support and min assist Plan Continue acute PT per plan of care. Safety/Education Safety Safety Devices in place: call light within reach, left in chair, gait belt, nurse notified, and no alarms engaged upon entry Restraints: No Education Education Given To: patient Education Provided: PT Role, PT Goals, Gait Training, Transfer Training, Fall Prevention Education, Discharge Recommendations, and Benefits of Increasing Activity Education Method: Verbal Barriers to Learning: None Education Outcome: Verbalized Understanding Outcome Measures AM-PAC AM-PAC Inpatient Mobility Raw Score (No Stairs) : 15 JH-HLM JH-HLM Scale: Walked 25 ft or more (i.e. walked outside of room) Goals Patient Stated Goal: to go home Encounter Problems Encounter Problems (Active) Balance Patient will maintain dynamic standing balance for 2 minutes with modified independence in order to demonstrate decreased risk of falling. (Progressing) Start: 05/24/25 Expected End: 06/21/25 Balance Patient will maintain static standing balance for 3 minutes with modified independence in order to demonstrate decreased risk of falling. (Not Addressed) Start: 05/24/25 Expected End: 06/21/25 Mobility Patient will ambulate 50 feet with modified independence and rolling walker in order to improve safety and independence with mobility. (Initiated) Start: 05/24/25 Expected End: 06/21/25 Patient will ascend and descend 8 stairs with one railing and modified independence in order to safely negotiate home. (Not Addressed) Start: 05/24/25 Expected End: 06/21/25 Transfers Patient will perform bed mobility with independence in order to improve independence and prepare for out of bed mobility. (Initiated) Start: 05/24/25 Expected End: 06/21/25 Patient will complete sit to stand transfer with independence to none in order to improve safety and prepare for out of bed mobility. (Initiated) Start: 05/24/25 Expected End: 06/21/25 Therapy Time Individual Co-treatment Time In 1119 Time Out 1130 Minutes 11 Amairani Leiva, PT Images from the original note were not included. OCCUPATIONAL THERAPY [facility] Treatment Note Name/MRN: Diana Kohli ([id number]) Date of : 1940 Age: 84 y.o. Room/Bed: 1C-130/1C-130 A Discharge Recommendation: IP Rehab Other: continue to assess Assessment OT treatment completed. Patient diagnosed with new stroke but overall plan of care to remain the same. Patient min A for bed mobility, transfers and functional mobility. Patient is max A for donning socks, CGA for toileting tasks and CGA for washing hands at sink. Patient with continued visual deficits. Patient is a high fall risk and not safe to discharge home. Recommending IP rehab upon discharge. Subjective Patient is supine in bed; patient agreeable to therapy treatment. RN ok'd for participation. Pain: Pt denies any current pain. Medical Precautions: No active isolations Proper PPE donned/doffed in accordance with facility standards. Fall Risk: Ny Fall Risk Score: 85 (Medium Risk) Ny Fall Risk Score: 85 (High Risk) Precautions/Restrictions: Lines/Drains/Airways: IV, tele Family/Caregiver Present: niece Objective ADLs LE Dressing: Max Assist- donning socks Toileting: Contact Guard- yuly-care Grooming: Contact Guard- standing at sink washing hands Bed Mobility Supine to sit: Min Assist Scooting: Min Assist HOB elevated; use of bed rail. Patient with FAIR+ sitting balance. Transfers/Mobility Sit to stand: Min Assist Stand to sit: Min Assist Toilet: Min Assist Standing balance: Min Assist Functional mobility: Min Assist Patient is min A for sit-stand from EOB. Patient ambulated to commode in bathroom with min A. Patient min A for transferring on/off commode. Patient with FAIR standing balance. Verbal cueing needing to compensate for visual deficits. Device(s) used: Front wheeled walker Plan Continue acute OT per plan of care. Safety/Education Safety Safety Devices in place: patient left with PT after tolieting (patient agreeable to transition of care) Restraints: No Education Education Given To: patient Education Provided: OT Role, Plan of Care, Precautions, and Discharge Recommendations Education Method: Verbal Barriers to Learning: None Education Outcome: Continued Education Needed AM-PAC AM-PAC Inpatient Daily Activity Raw Score: 15 ADL Inpatient CMS G-Code Modifier: CK Goals Patient Stated Goal: to get better Encounter Problems Encounter Problems (Active) Dressing Upper Extremities Patient will complete upper body dressing with supervision. (Progressing) Start: 05/24/25 Expected End: 06/21/25 Dressings Lower Extremities Patient will dress lower body with supervision. (Slowly Progressing) Start: 05/24/25 Expected End: 06/21/25 Grooming Patient will complete daily grooming tasks with Mod I. (Slowly Progressing) Start: 05/24/25 Expected End: 06/21/25 Toileting Patient will complete toileting tasks at standard toilet with modified independence. (Slowly Progressing) Start: 05/24/25 Expected End: 06/21/25 Transfers Patient will complete functional transfer with least restrictive device with modified independence in order to prepare for ambulation. (Slowly Progressing) Start: 05/24/25 Expected End: 06/21/25 Patient will perform bed mobility with modified independence in order to improve independence and prepare for out of bed mobility. (Slowly Progressing) Start: 05/24/25 Expected End: 06/21/25 Vision Patient will ID 3 ADL objects in bilateral visual hemispheres with min verbal cues. (Slowly Progressing) Start: 05/24/25 Expected End: 06/21/25 Therapy Time Individual Co-treatment Time In 1107 Time Out 1118 Minutes 11 Timed Code Treatment Minutes: 11 Minutes (self care-1) Elizabeth Robert OT Images from the original note were not included. Neuro Critical Care / stroke Attending MRI completed, Very small infarction in the right BG/ EC , I suspect mechanism more related to her diffused small vessel disease than either athero embolic. Based on that I suggest continuation with DYANA Consider bringing her BP down slowly , avoid the 200s , Consider renal artery ultrasound and catecholamine studies in search of other secondary causes of malignant Htn Patient with almost complete resolution of her symptoms Back at baseline , Final diagnosis - Right small lacunar infarction , mechanism , small vessel arteriopathy In addition to the other diagnosis documented in my note yesterday I personally interviewed and examined this patient , personally completed completed the note for this patient. I reviewed the chart including MAR, labs, neuroimaging, other imaging studies and discussed my diagnostic impression and patient's plan of care with patient's daughter [x] Encounter Face to Face [x] follow up [x] Time spend [x] 25 [x] No longer neurological follow up needed, will sign off, let us know if need for further assistance Thank you Charlene Walker MD for the opportunity to be involved in this patient's care. Hospitalist Progress Note 06/01/2025 Subjective: Admit Date: 05/23/2025 PCP: Charlene Walker MD Room#: [facility] A 84-year-old female presented with right eye vision loss on May 23. CT head no acute intracranial abnormality. CT angiography of the head neck revealed bilateral 80% stenosis of the internal carotids. Additionally patient has a shaggy plaque in the aortic arch with an anterior penetrating oral ulcer. Carotid duplex showing <50% bilaterally, possible DAISHA stenosis < 60% Neurology recommends aspirin 81 mg daily Plavix 75 mg indefinitely for now. Per neurology "platelet agg studies pending for ASA and Plavix - may need to switch to DOAC if these come back abnormal " neurology signed off 05/29 s/p carotid endarterectomy with vascular surgery 05/30 had new R facial droop and dysarthria - CTA, MRI pending. . Early this AM, pt noted to have slurred speech and new R facial droop. Stroke team activated. Repeat CTH unremarkable. Neuro recommended CTA and MRI. This AM, pt with mild noted R facial droop but denies any complaints. Family at bedside and states her mentation is improved, but still with slow deliberate speech. EXPERIMENTAL ASSEMBLER recommended modified diet.Not a TNK candidate 05/31: MRI pending when seen this morning. Appreciate neurology recommendations. Noted plans of PT/OT reevaluations tomorrow and further working up placement Interval History: Seen and examined at bedside this morning. Did endorse new onset numbness on left side of her face earlier in the morning-did endorse improvement by the time she was seen. Also being followed by neurology and vascular surgery -appreciate recommendations. Patient would need stricter blood pressure control-recommended target SBP less than 160 by vascular surgery and target SBP less than 180 per neurology. Adult diet Easy to Chew 24HR INTAKE/OUTPUT: No intake or output data in the 24 hours ending 06/01/25 09 Past Medical History: Medical History[1] LABS: CBC: Recent Labs 05/30/25 0130 WBC 9.5 RBC 3.66* HGB 11.4* HCT 34.0* MCV 92.9 RDW 13.0 PLT 164 BMP: Recent Labs 05/30/25 0354 05/31/25 0038 06/01/25 0253 NA 137 140 139 K 3.7 3.4* 3.5 CL 111* 112* 109* CO2 19* 20* 25 BUN 15 13 11 CREATININE 1.08 1.03 1.01 GLUCOSE 101 74* 76* CALCIUM 8.0* 7.4* 8.4* ANIONGAP 7 8 5 LIVER PROFILE: No results for input(s): "AST", "ALT", "BILITOT", "ALKPHOS", "PROT" in the last 72 hours. No lab exists for component: LABALBU PT/INR: Recent Labs 05/30/25129 PROTIME 10.8 INR 1.0 CARDIAC ENZYMES: No results for input(s): "TROPONINI" in the last 72 hours. Procalcitonin: No results found for: PROCAL COVID-19 PCR: No results for input(s): "COVID19" in the last 72 hours. Objective: Vitals: BP (!) 177/66 Pulse 78 Temp 36.4 C (97.6 F) (Temporal) Resp 22 Ht 5' 2.01" (1.575 m) Wt 185 lb (83.9 kg) SpO2 93% BMI 33.83 kg/m Pulse Ox: SpO2 Av.8 % Min: 91 % Max: 94 % Supplemental O2: O2 Flow Rate (L/min): 2 L/min Physical exam: General: Lying in bed comfortably, awake Normocephalic Heart: Regular rate Lungs: CTAB Abdominal: Nontender, Medications: Scheduled PRN Scheduled Meds[2] PRN Meds[3] Continuous Continuous Meds[4] Assessment Bilateral carotid artery disease Ascending aortic ulcer/atherosclerosis Vision changes Acute R CRAO/recent L CRAO suspect large vessel atheroembolism in setting of aortic arch plaque and ulcer. Hypertension CKD GERD Mood disorder Thyroid disease Continue Norvasc aspirin statin Plavix Lexapro Synthroid losartan PPI Concern for stroke : -> MRI done 05/31-reviewed -> appreciate neurology recommendations furthermore On aspirin/statin/Plavix already per past surgery recommendations Patient has been having uncontrolled blood pressures -maintain on IV as needed antihypertensives and target SBP less than 180 per neurology recs. Anticipate discharge in 2-3 days to [facility] Extended Emergency Contact Information Primary Emergency Contact: Piper Hamilton (POA) Mobile Relation: Louis Tony Reynolds MD Division of Hospitalist Medicine [facility] [1] Past Medical History: Diagnosis Date Disease of thyroid gland Hypertension 01/01/2024 [2] [Held by provider] amLODIPine, 5 mg, Oral, Daily aspirin, 81 mg, Oral, Daily Or aspirin, 300 mg, Rectal, Daily atorvastatin, 80 mg, Oral, Nightly cholecalciferol, 1,000 Units, Oral, Daily clopidogrel, 75 mg, Oral, Daily enoxaparin, 40 mg, SubCUTAneous, Daily escitalopram, 10 mg, Oral, Daily levothyroxine, 112 mcg, Oral, qAM AC [Held by provider] losartan, 25 mg, Oral, Daily meclizine, 12.5 mg, Oral, Daily pantoprazole, 40 mg, Oral, Nightly sodium chloride 0.9%, 5-40 mL, IntraVENous, q12h [3] PRN medications: acetaminophen OR acetaminophen, bisacodyl, hydrALAZINE, labetalol, ondansetron ODT OR [DISCONTINUED] ondansetron, polyethylene glycol (PEG) 3350, prochlorperazine OR prochlorperazine OR prochlorperazine, sodium chloride, sodium chloride 0.9% [4] sodium chloride, 50 mL/hr, Last Rate: 50 mL/hr (06/01/25 0537) Images from the original note were not included. Department of Vascular Surgery Daily Progress Note ADMIT DATE: 05/23/2025 TODAY'S DATE: 06/01/2025 SUBJECTIVE: NAEON. On exam patient reports she is feeling well. Denies of any headaches. Denies any new numbness/tingling/weakness/vision changes. ROS: Noted above unless otherwise mentioned OBJECTIVE: VITALS: Temp: [35.7 C (96.3 F)-36.7 C (98.1 F)] 36.7 C (98.1 F) Heart Rate: [42-66] 66 Resp: [11] 25 BP: (138-235)/(51-105) 138/75 INTAKE/OUTPUT: No intake or output data in the 24 hours ending 06/01/25 0601 I/O last 3 completed shifts: In: 150 (1.8 mL/kg) [P.O.:150] Out: 800 (9.5 mL/kg) [Urine:800 (0.3 mL/kg/hr)] Weight: 83.9 kg No intake/output data recorded. PHYSICAL EXAM: Gen: NAD, A&Ox3, pain controlled Neck: incision c/d/I attp, no appreciable hematoma, mild ecchymosis HEENT: left facial droop, eye deviation no longer present Heart: RR Lungs: symmetric chest rise, normal work of breathing Abd: soft, non tender, non distended. Non rigid. Ext: no c/c/e no gross deformities Skin: warm, no obvious rashes, cellulitis or gross discoloration LABS -Reviewed Current Inpatient Medications Scheduled Meds:Scheduled Meds[1] Continuous Infusions:Continuous Meds[2] PRN Meds:PRN Meds[3] ASSESSMENT AND PLAN: 84 y.o. female with vision changes in setting of bilateral carotid artery disease and ascending aortic ulcer with concerns for stroke. Status post left carotid endarterectomy 05/29/[address] Vitale. No additional vascular surgical intervention planned Continue aspirin, statin, clopidogrel PRN analgesics All other medical care per primary team Vascular surgical continue to follow Case will be discussed with Dr. Rios, covering for Dr. Vitale Reji Mejia MD Department of Surgery General Surgery Resident Pager: [phone] PAGING / [employer] Secure Chat: From 6a-p (- weekends): Epic Secure Chat (FIRST) or Pager above (EMERGENT/Second) From 6-6a (-s): Find resident physician under "ACH Surgery - General" - Surgical ICU Patients: Select 'ACH GEN SURG Night Float ICU RES' or Page [id number] - Surgical Floor Patients: Select 'ACH GEN SURG Night Float Floor RES' or "Page x1799" Disclaimers: INFORMED CONSENT: The nature and purpose of the proposed treatment and/or procedure have been discussed. The risks and benefits of the proposed treatment or procedures have been reviewed. Alternatives have been reviewed in addition to the risks and benefits of not receiving treatments or undergoing procedures. Pursuant to this discussion, the patient agrees to undergo the proposed treatment or procedure. Captured images seen in this note are not a substitute for a comprehensive interpretation of the entire data set as reflected by the interpreting physician with regard to radiology, echocardiography, and other diagnostic images. This note may have been dictated using [employer] Practice Edition and/or [employer]ach Voice Recognition Feature. The document was proofread; however, unrecognized voice recognition nutrition aide errors may be present. [1] [Held by provider] amLODIPine, 5 mg, Oral, Daily aspirin, 81 mg, Oral, Daily Or aspirin, 300 mg, Rectal, Daily atorvastatin, 80 mg, Oral, Nightly cholecalciferol, 1,000 Units, Oral, Daily clopidogrel, 75 mg, Oral, Daily enoxaparin, 40 mg, SubCUTAneous, Daily escitalopram, 10 mg, Oral, Daily levothyroxine, 112 mcg, Oral, qAM AC [Held by provider] losartan, 25 mg, Oral, Daily meclizine, 12.5 mg, Oral, Daily pantoprazole, 40 mg, Oral, Nightly sodium chloride 0.9%, 5-40 mL, IntraVENous, q12h [2] sodium chloride, 50 mL/hr, Last Rate: 50 mL/hr (06/01/25 0537) [3] PRN medications: acetaminophen OR acetaminophen, bisacodyl, hydrALAZINE, labetalol, ondansetron ODT OR [DISCONTINUED] ondansetron, polyethylene glycol (PEG) 3350, prochlorperazine OR prochlorperazine OR prochlorperazine, sodium chloride, sodium chloride 0.9% Cosigned by Martha Rios MD at 06/01/2025 9:43 AM EDT Associated attestation - Martha Rios MD - 06/01/2025 9:43 AM EDT Patient discussed and plan formulated with resident. I saw and evaluated the patient independently. I agree with the findings documented by resident unless otherwise noted differently below. Martha Rios MD Vascular Surgery 06/01/2025 9:43 AM Hospitalist Progress Note 05/31/2025 Subjective: Admit Date: 05/23/2025 PCP: Charlene Walker MD Room#: -130/-130 A 84-year-old female presented with right eye vision loss on May 23. CT head no acute intracranial abnormality. CT angiography of the head neck revealed bilateral 80% stenosis of the internal carotids. Additionally patient has a shaggy plaque in the aortic arch with an anterior penetrating oral ulcer. Carotid duplex showing <50% bilaterally, possible DAISHA stenosis < 60% Neurology recommends aspirin 81 mg daily Plavix 75 mg indefinitely for now. Per neurology "platelet agg studies pending for ASA and Plavix - may need to switch to DOAC if these come back abnormal " neurology signed off 05/29 s/p carotid endarterectomy with vascular surgery 05/30 had new R facial droop and dysarthria - CTA, MRI pending. . Early this AM, pt noted to have slurred speech and new R facial droop. Stroke team activated. Repeat CTH unremarkable. Neuro recommended CTA and MRI. This AM, pt with mild noted R facial droop but denies any complaints. Family at bedside and states her mentation is improved, but still with slow deliberate speech. EXPERIMENTAL ASSEMBLER recommended modified diet.Not a TNK candidate 05/31: MRI pending when seen this morning. Appreciate neurology recommendations. Noted plans of PT/OT reevaluations tomorrow and further working up placement Interval History: Seen and evaluated at bedside. No acute medical complaints when seen this morning. Did endorse feeling better than yesterday. Patient plan discussed with patient and bedside RN. Adult diet Easy to Chew 24HR INTAKE/OUTPUT: Intake/Output Summary (Last 24 hours) at 05/31/2025 1156 Last data filed at 05/30/2025 2126 Gross per 24 hour Intake 150 ml Output 800 ml Net -650 ml Past Medical History: Medical History[1] LABS: CBC: Recent Labs 05/29/25 0040 05/30/25 0130 WBC 7.7 9.5 RBC 4.17 3.66* HGB 13.1 11.4* HCT 38.6 34.0* MCV 92.6 92.9 RDW 13.1 13.0 PLT 211 164 BMP: Recent Labs 05/30/25 0130 05/30/25 0354 05/31/25 0038 NA 136 137 140 K 4.0 3.7 3.4* CL 109* 111* 112* CO2 22* 19* 20* BUN 15 15 13 CREATININE 1.15* 1.08 1.03 GLUCOSE 109 101 74* CALCIUM 8.3* 8.0* 7.4* ANIONGAP 5 7 8 LIVER PROFILE: No results for input(s): "AST", "ALT", "BILITOT", "ALKPHOS", "PROT" in the last 72 hours. No lab exists for component: LABALBU PT/INR: Recent Labs 05/30/25 013 PROTIME 10.8 INR 1.0 CARDIAC ENZYMES: No results for input(s): "TROPONINI" in the last 72 hours. Procalcitonin: No results found for: PROCAL COVID-19 PCR: No results for input(s): "COVID19" in the last 72 hours. Objective: Vitals: BP 154/99 Pulse 59 Temp (!) 35.9 C (96.6 F) (Temporal) Resp 20 Ht 5' 2.01" (1.575 m) Wt 185 lb (83.9 kg) SpO2 91% BMI 33.83 kg/m Pulse Ox: SpO2 Av.6 % Min: 90 % Max: 100 % Supplemental O2: O2 Flow Rate (L/min): 2 L/min Physical exam: General: Lying in bed comfortably, awake and alert Normocephalic Heart: Regular rate Lungs: Clear to auscultation bilaterally, slightly reduced breath sounds Abdominal: Soft, nontender Medications: Scheduled PRN Scheduled Meds[2] PRN Meds[3] Continuous Continuous Meds[4] Assessment Bilateral carotid artery disease Ascending aortic ulcer/atherosclerosis Vision changes Acute R CRAO/recent L CRAO suspect large vessel atheroembolism in setting of aortic arch plaque and ulcer. Hypertension CKD GERD Mood disorder Thyroid disease Continue Norvasc aspirin statin Plavix Lexapro Synthroid losartan PPI Concern for stroke : -> Pending MRI-appreciate neurology recommendations furthermore Noted plans of reassessment by PT/OT 06/01 and further discharge disposition arrangements being made thereafter. On aspirin/statin/Plavix already per past surgery recommendations Anticipate discharge in 2-3 days to [facility] Extended Emergency Contact Information Primary Emergency Contact: Hamilton (POA)Piper Mobile Relation: Louis Reynolds MD Division of Hospitalist Medicine [facility] [1] Past Medical History: Diagnosis Date Disease of thyroid gland Hypertension 01/01/2024 [2] [Held by provider] amLODIPine, 5 mg, Oral, Daily aspirin, 81 mg, Oral, Daily Or aspirin, 300 mg, Rectal, Daily atorvastatin, 80 mg, Oral, Nightly cholecalciferol, 1,000 Units, Oral, Daily clopidogrel, 75 mg, Oral, Daily enoxaparin, 40 mg, SubCUTAneous, Daily escitalopram, 10 mg, Oral, Daily levothyroxine, 112 mcg, Oral, qAM AC [Held by provider] losartan, 25 mg, Oral, Daily meclizine, 12.5 mg, Oral, Daily pantoprazole, 40 mg, Oral, Nightly sodium chloride 0.9%, 5-40 mL, IntraVENous, q12h [3] PRN medications: acetaminophen OR acetaminophen, bisacodyl, hydrALAZINE, labetalol, ondansetron ODT OR [DISCONTINUED] ondansetron, polyethylene glycol (PEG) 3350, prochlorperazine OR prochlorperazine OR prochlorperazine, sodium chloride, sodium chloride 0.9% [4] sodium chloride, 50 mL/hr, Last Rate: 50 mL/hr (05/30/25 0244) Images from the original note were not included. PROGRESS NOTE. STROKE SERVICE Patient Name:Diana Kohli Patient : 1940 Acct: [id number] Date of Admission: 05/23/2025 Room/Bed: [facility] PCP: Charlene Walker MD Patient location 1 central Remains in the hospital ., Subjective: New Complain: BP averagel 170s, as high as 200 / 11 Had episodes of bradycardia Sedation:No , but PRN pain meds Diet/TF: easy to chew [place]: Yes Activity: patient on bed rest but instructed to get out of bed today Patient better , left sided weakness improved She has been walking to the bathroom and with nurse Stroke Core Measures: Current Hospital Medications: Current Medications[1] Continuous Infusions: Continuous Meds[2] Allergies: Patient has no known allergies. ROS: Unable to obtain complete ROSsecondary to sleepy m Review of Systems Objective: Telemetry: Arrhythmia:No Physical Examination: Patient Vitals for the past 8 hrs: BP Temp Temp src Pulse Resp SpO2 05/31/25 0600 (!) 167/54 -- -- (!) 46 20 97 % 05/31/25 0500 (!) 191/75 -- -- (!) 49 20 99 % 05/31/25 0415 -- -- -- 50 21 95 % 05/31/25 0410 (!) 200/49 -- -- 60 21 93 % 05/31/25 0405 (!) 200/111 -- -- 72 24 97 % 05/31/25 0400 (!) 201/75 -- -- 57 22 98 % 05/31/25 0355 -- -- -- 51 19 99 % 05/31/25 0350 -- -- -- 59 24 98 % 05/31/25 0345 -- -- -- 56 23 98 % 05/31/25 0340 -- -- -- 63 20 98 % 05/31/25 0335 -- -- -- 72 17 100 % 05/31/25 0330 -- -- -- 56 23 99 % 05/31/25 0325 -- -- -- 54 23 99 % 05/31/25 0320 -- -- -- 52 22 100 % 05/31/25 0315 -- -- -- 53 21 99 % 05/31/25 0310 -- -- -- 58 19 98 % 05/31/25 0305 -- -- -- 65 19 98 % 05/31/25 0301 -- (!) 35.8 C (96.4 F) Temporal -- -- -- 05/31/25 0300 (!) 178/ -- -- 50 23 96 % 05/31/25 0255 -- -- -- 63 20 99 % 05/31/25 0250 -- -- -- 59 23 98 % 05/31/25 0245 -- -- -- 60 22 98 % 05/31/25 0240 -- -- -- 56 23 98 % 05/31/25 0235 -- -- -- 53 22 97 % 05/31/25 0230 (!) 189/56 -- -- 63 16 96 % 05/31/25 0225 -- -- -- 52 23 99 % 05/31/25 0220 -- -- -- 56 22 98 % 05/31/25 0215 -- -- -- 60 19 98 % 05/31/25 0210 -- -- -- 58 12 97 % 05/31/25 0205 -- -- -- 53 18 98 % 05/31/25 0200 (!) 210 -- -- 55 20 97 % 05/31/25 0155 -- -- -- 55 23 96 % 05/31/25 0150 -- -- -- 67 22 99 % 05/31/25 0145 -- -- -- 62 15 98 % 05/31/25 0140 -- -- -- 59 18 96 % 05/31/25 0135 -- -- -- 58 22 95 % 05/31/250 -- -- -- 54 22 -- 05/31/25124 -- -- -- 56 23 -- 05/31/25119 -- -- -- 62 15 92 % 05/31/25114 -- -- -- 62 19 91 % 05/31/25109 -- -- -- 55 19 92 % 05/31/255 -- -- -- 54 24 95 % 05/31/250 (!) 180/53 -- -- 58 21 92 % 05/31/2554 -- -- -- 54 19 97 % 05/31/2549 -- -- -- 67 19 94 % 05/31/2544 -- -- -- 59 20 96 % 05/31/2539 -- -- -- 55 22 95 % I/O last 3 completed shifts: In: 400 (4.8 mL/kg) [P.O.:400] Out: 1000 (11.9 mL/kg) [Urine:1000 (0.3 mL/kg/hr)] Weight: 83.9 kg General Physical Examination: General: sleepy but arousable HEENT:poor dentition , scar on the left side of the nectk CV: S1+S2, RRR, no MRG. Pulm:CTA b/l, unlabored Abdomen: Soft NT/ND. BS + Skin: Intact without ulcers, breakdowns or discoloration Extremities: normal with no edema or cyanosis Orthopedic limitation; Yes Pulses: Intact peripherally Carotid auscultation :limited Neurological Examination: Higher Functions: Mental Status Exam: Level of Alertness:Awake Orientation: Normal toself, time, place Memory: Abnormal Fund of Knowledge: Abnormal Language: Normal Dysarthria Mild Cranial Nerves: -II Visual acuity: abnormal, limited due to patient unable to perform exam -II Visualfields: she has decrease visual sharma -III Pupils (~ 3 mm OD, 3 mm OU) equal, round, reactive to light -III-IV- Extraocular Movements: abnormal difficult tracking I think because of her vision -Nystagmus not present -Saccades and pursuits abnormal -V Facial sensation: intact Corneal's Intact bilateral -VII Facial strength:abnormal left NLF 2 -VIII Hearing: abnormal decreased -IX-X - Gag reflex present -X Palate: Normal -XI Shoulder shrug: "poor effort -XII Tongue movement: normal MotorExamination: Tone after evaluation of 4 limbs, the following findings applied: Mild paratonia . -Bulk: generalized atrophy due to malnourishment and deconditioning -Muscle Stretch afterevaluation of all limbs, and axial musculature the following findings applied: Drift: not present today , just generalized mild weaknes . -Reflexes: after evaluation of 4 limbs, the following findings applied ; Abnormal -Plantar responce: Flexor bilaterally Sensory normal limited to gross touch, Coordination: Arms Normal finger to nose Legs patient unable to perform test due to sedation, paralysis or limb orthopediccircumstances Tremors not present Gait With contact assista NIHSS: 2 ANCILLARY Last 24hrs Recent Results (from the past 24 hours) Basic metabolic panel Collection Time: 05/31/25 12:38 AM Result Value Ref Range SODIUM 140 136 - 145 mmol/L POTASSIUM 3.4 (L) 3.5 - 5.1 mmol/L CHLORIDE 112 (H) 98 - 107 mmol/L CARBON DIOXIDE 20 (L) 23 - 31 mmol/L UREA NITROGEN 13 9 - 23 mg/dL CREATININE 1.03 0.57 - 1.11 mg/dL GLUCOSE 74 (L) 82 - 115 mg/dL CALCIUM 7.4 (L) 8.8 - 10.0 mg/dL ANION GAP 8 3 - 13 mmol/L eGFR 54.4 (L) >60.0 mL/min/1.73m*2 Magnesium Collection Time: 05/31/25 12:38 AM Result Value Ref Range MAGNESIUM 1.7 1.6 - 2.6 mg/dL Phosphorus Collection Time: 05/31/25 12:38 AM Result Value Ref Range PHOSPHORUS 3.3 2.3 - 4.7 mg/dL Coagulation: Recent Labs 05/30/[address] head: May 31 May 23 Very difficult to see anything truly new MRI: MPRESSION: ( obtaied with at the time when she came with visual changes 1. No acute intracranial findings. 2. Probable chronic ischemic and atrophic changes. 3. Right mastoid sinus disease. TTE: Left Ventricle: Left ventricle size is normal. Mildly increased wall thickness. Normal left ventricular systolic function. EF by 2D Simpsons Biplane is 55%. Normal wall motion. Right Ventricle: Right ventricle size is normal. Normal systolic function. Pericardium: Evidence of prominent epicardial fat. No pericardial effusion. No significant valvular abnormalities. Technically difficult study. Other: <50% stenosis in the right internal carotid artery by velocity criteria. Moderate plaque (proximal) in the right internal carotid artery. <50% stenosis in the left internal carotid artery. Stenosis may be underestimated due to calcific shadowing. Heterogeneous, calcific and diffuse plaque (proximal and mid) in the left internal carotid artery. There is post-stenotic turbulence to suggest more significant stenosis. Normal antegrade flow involving the right vertebral artery. Normal antegrade flow involving the left vertebral artery. Prior CTA post surgery 1. No focal or global perfusion defect. 2. Surgical change within the left internal carotid artery with fusiform dilatation following endarterectomy 3. Persistent significant stenosis in the right proximal internal carotid artery in the range of at least 60-70 percent luminal narrowing 4. Dominant right vertebral artery with diminutive left vertebral artery and significant stenosis within the intracranial segment the left distal vertebral artery. 5. Dense calcified plaque within the distal internal carotid arteries greater on the left. Degree stenosis is difficult to determine in these regions. 6. No intracranial large arterial vessel occlusion. CRITICAL TEST RESULT COMMUNICATION: I communicated these findings via [employer] Secure Chat to Dr. Juarez on 05/30/2025 at 1:15 AM EDT. ... ASSESSMENT / PLAN/RECOMMENDATIONS: - Right hemispheric stroke, ( new since surgery ) Mechanism suspect athero - thrombo embolic , suspected however it could also have been caused by hypoperfusion in the setting of severe ICA stenosis, CT completed today and reviewed, was done with intention to avoid MRI however will need to complete Mri as the image did not clearly identify the new area of infarction, which suggest hypoperfusion related more than atherothromboembolic, in such care, it may have an effect on the BP goals selection ON DYANA - Right ICA severe stenosis - Left ICA stenosis s/p CEA Pain control on tylenol orders ( oral and rectal ordered 0 Vascular carotid ultrasound ordered - Severe atherosclerosis of the aotirc arch - left hemiparesis , OT, PT and Speech ordered - DLP , on lipitor 80 - HTN on Cozaar, & Norvasc currently on hold PRN hydralazine & Labetalol , current goals ok up to 180 , This goal is a bit high post CEA but may be needed do to her coexistent right ICA Will review the MRI and determine need for adjustment - Acute on Chronic renal failure, current GFR 54 9 was 47 on admission ) On fluids at 50 ml hr - Mild anemia, - DVT risk on Lovenox _ Depression on lexapro - Hypothyroidism on Synthroid - GI protection on Protonix / PRN cpompazine and zofram ( both oral and IV - Virt D deficiency , on replacement - Patient on Antivert scheduled , - Diat currently easy to chew - Currently on fall and seizure precautions - Advance directives She is DNR CCA Pending MRI brain Try to see if she would tolerate SBP 120 - 160 , slightly lower than what it is today Neuro Critical Care / stroke Attending I personally interviewed and examined this patient , personally completed completed the note for this patient. I reviewed the chart including MAR, labs, neuroimaging, other imaging studies and discussed my diagnostic impression and patient's plan of care with patient and family [x] Encounter Face to Face [x] follow up [x] Time spend [x] 50 [x] will continue to follow Thank you Charlene Walker MD for the opportunity to be involved in this patient's care. [1] Current Facility-Administered Medications: acetaminophen (Tylenol) tablet 650 mg, 650 mg, Oral, q6h PRN, 650 mg at 05/26/25 1451 OR acetaminophen (Tylenol) suppository 650 mg, 650 mg, Rectal, q6h PRN, Kiara Mario MD [Held by provider] amLODIPine (Norvasc) tablet 5 mg, 5 mg, Oral, Daily, Kiara Mario MD, 5 mg at 05/29/25 2018 aspirin EC tablet 81 mg, 81 mg, Oral, Daily, 81 mg at 05/31/25 0807 OR aspirin suppository 300 mg, 300 mg, Rectal, Daily, Kiara Mario MD atorvastatin (Lipitor) tablet 80 mg, 80 mg, Oral, Nightly, Kiara Mario MD, 80 mg at 05/30/252018 bisacodyl (Dulcolax) suppository 10 mg, 10 mg, Rectal, Daily PRN, Kiara Mario MD cholecalciferol (Vitamin D-3) tablet 1,000 Units, 1,000 Units, Oral, Daily, Kiara Mario MD, 1,000 Units at 05/31/25 0807 clopidogrel (Plavix) tablet 75 mg, 75 mg, Oral, Daily, Kiara Mario MD, 75 mg at 05/31/25 0807 enoxaparin (Lovenox) syringe 40 mg, 40 mg, SubCUTAneous, Daily, Kiara Mario MD, 40 mg at 05/31/25 0807 escitalopram (Lexapro) tablet 10 mg, 10 mg, Oral, Daily, Kiara Mario MD, 10 mg at 05/31/25 0807 hydrALAZINE (Apresoline) injection 10 mg, 10 mg, IntraVENous, q4h PRN, Barbara Gutierrez MD labetalol (Normodyne,Trandate) injection 10 mg, 10 mg, IntraVENous, q4h PRN, Barbara Gutierrez MD levothyroxine (Synthroid, Levoxyl) tablet 112 mcg, 112 mcg, Oral, qAM AC, Kiara Mario MD, 112 mcg at 05/31/25 0505 [Held by provider] losartan (Cozaar) tablet 25 mg, 25 mg, Oral, Daily, Kiara Mario MD, 25 mg at 05/29/25 0806 meclizine (Antivert) tablet 12.5 mg, 12.5 mg, Oral, Daily, Kiara Mario MD, 12.5 mg at 05/31/25 0807 ondansetron ODT (Zofran-ODT) disintegrating tablet 4 mg, 4 mg, Oral, q8h PRN, 4 mg at 05/24/25 0335 OR [DISCONTINUED] ondansetron (Zofran) injection 4 mg, 4 mg, IntraVENous, q6h PRN, Petrona Taylor, 4 mg at 05/24/25 1234 pantoprazole (ProtoNix) EC tablet 40 mg, 40 mg, Oral, Nightly, 40 mg at 05/30/25 2019 OR [DISCONTINUED] pantoprazole (ProtoNix) 40 mg in sodium chloride (PF) 0.9 % 10 mL injection, 40 mg, IntraVENous, Nightly, Jas Flores DO polyethylene glycol (PEG) 3350 (Miralax) packet 17 g, 17 g, Oral, Daily PRN, Kiara Mario MD, 17 g at 05/26/25 1103 prochlorperazine (Compazine) tablet 10 mg, 10 mg, Oral, q6h PRN OR prochlorperazine (Compazine) injection 10 mg, 10 mg, IntraVENous, q6h PRN OR prochlorperazine (Compazine) suppository 25 mg, 25 mg, Rectal, q12h PRN, Kiara Mario MD sodium chloride 0.9 % infusion, 5-250 mL/hr, IntraVENous, PRN, Kiara Mario MD sodium chloride 0.9 % infusion, 50 mL/hr, IntraVENous, Continuous, Yobany Escalante DO, Last Rate: 50 mL/hr at 05/30/25 0244, 50 mL/hr at 05/30/25 0244 sodium chloride 0.9% (NS) flush 5-40 mL, 5-40 mL, IntraVENous, q12h, Kiara Mario MD, 10 mL at 05/29/25 2018 sodium chloride 0.9% (NS) flush 5-40 mL, 5-40 mL, IntraVENous, PRN, Kiara Mario MD [2] sodium chloride, 50 mL/hr, Last Rate: 50 mL/hr (05/30/25 0244) Nutrition update completed. Chart reviewed. Patient to be monitored and followed by the diet natural gas technician. Dietitian available upon request. VICK Peña Images from the original note were not included. Department of General Surgery Daily Progress Note ADMIT DATE: 05/23/2025 TODAY'S DATE: 05/31/2025 SUBJECTIVE: no acute events overnight. On examination patient denies having any new vision changes, headaches, numbness, tingling, weakness. ROS: Noted above unless otherwise mentioned OBJECTIVE: VITALS: Temp: [35.8 C (96.4 F)-37.1 C (98.7 F)] 35.8 C (96.4 F) Heart Rate: [43-72] 46 Resp: [12-25] 20 BP: (127-210)/(36-118) 167/54 INTAKE/OUTPUT: Intake/Output Summary (Last 24 hours) at 05/31/2025 0630 Last data filed at 05/30/2025 2126 Gross per 24 hour Intake 150 ml Output 800 ml Net -650 ml I/O last 3 completed shifts: In: 1850 (22 mL/kg) [P.O.:350; I.V.:1500 (17.9 mL/kg)] Out: 1025 (12.2 mL/kg) [Urine:1000 (0.3 mL/kg/hr); Blood:25] Weight: 83.9 kg I/O this shift: In: 50 [P.O.:50] Out: - PHYSICAL EXAM: Gen: NAD, A&Ox3, pain controlled Neck: incision c/d/I attp, no appreciable hematoma, mild ecchymosis HEENT: left facial droop, eye deviation no longer present Heart: RR Lungs: symmetric chest rise, normal work of breathing Abd: soft, non tender, non distended. Non rigid. Ext: no c/c/e no gross deformities Skin: warm, no obvious rashes, cellulitis or gross discoloration LABS -Reviewed Current Inpatient Medications Scheduled Meds:Scheduled Meds[1] Continuous Infusions:Continuous Meds[2] PRN Meds:PRN Meds[3] ASSESSMENT AND PLAN: 84 y.o. female with vision changes in setting of bilateral carotid artery disease and ascending aortic ulcer with concerns for stroke. Status post left carotid endarterectomy 05/29/[address] Vitale. No additional vascular surgical intervention planned Continue aspirin, statin, clopidogrel PRN analgesics All other medical care per primary team Vascular surgical continue to follow Case will be discussed with Dr. Rios, covering for Dr. Vitale Reji Mejia MD Department of Surgery General Surgery Resident Pager: [phone] PAGING / Epic Secure Chat: From 6a-6p (6a-10a weekends): Epic Secure Chat (FIRST) or Pager above (EMERGENT/Second) From 6p-6a (-6a weekends): Find resident physician under "ACH Surgery - General" - Surgical ICU Patients: Select 'ACH GEN SURG Night Float ICU RES' or Page [id number] - Surgical Floor Patients: Select 'ACH GEN SURG Night Float Floor RES' or "Page x1799" Disclaimers: INFORMED CONSENT: The nature and purpose of the proposed treatment and/or procedure have been discussed. The risks and benefits of the proposed treatment or procedures have been reviewed. Alternatives have been reviewed in addition to the risks and benefits of not receiving treatments or undergoing procedures. Pursuant to this discussion, the patient agrees to undergo the proposed treatment or procedure. Captured images seen in this note are not a substitute for a comprehensive interpretation of the entire data set as reflected by the interpreting physician with regard to radiology, echocardiography, and other diagnostic images. This note may have been dictated using B[employer] In [employer] Box JV Edition and/or Peach Voice Recognition Feature. The document was proofread; however, unrecognized voice recognition nutrition aide errors may be present. [1] [Held by provider] amLODIPine, 5 mg, Oral, Daily aspirin, 81 mg, Oral, Daily Or aspirin, 300 mg, Rectal, Daily atorvastatin, 80 mg, Oral, Nightly cholecalciferol, 1,000 Units, Oral, Daily clopidogrel, 75 mg, Oral, Daily enoxaparin, 40 mg, SubCUTAneous, Daily escitalopram, 10 mg, Oral, Daily levothyroxine, 112 mcg, Oral, qAM AC [Held by provider] losartan, 25 mg, Oral, Daily meclizine, 12.5 mg, Oral, Daily pantoprazole, 40 mg, Oral, Nightly sodium chloride 0.9%, 5-40 mL, IntraVENous, q12h [2] sodium chloride, 50 mL/hr, Last Rate: 50 mL/hr (05/30/25 0244) [3] PRN medications: acetaminophen OR acetaminophen, bisacodyl, hydrALAZINE, labetalol, ondansetron ODT OR [DISCONTINUED] ondansetron, polyethylene glycol (PEG) 3350, prochlorperazine OR prochlorperazine OR prochlorperazine, sodium chloride, sodium chloride 0.9% Cosigned by Martha Rios MD at 05/31/2025 9:21 AM EDT Associated attestation - Martha Rios MD - 05/31/2025 9:21 AM EDT Patient discussed and plan formulated with resident. I agree with the findings documented by resident unless otherwise noted differently below. Patient out of room this AM x2 getting imaging while I was rounding. Martha Rios MD Vascular Surgery 05/31/2025 9:21 AM Hospitalist Progress Note 05/30/2025 Subjective: Admit Date: 05/23/2025 PCP: Charlene Walker MD Room#: [facility]130/[facility] A Interval History: 05/30: Pt seen and examined. Early this AM, pt noted to have slurred speech and new R facial droop. Stroke team activated. Repeat CTH unremarkable. Neuro recommended CTA and MRI. This AM, pt with mild noted R facial droop but denies any complaints. Family at bedside and states her mentation is improved, but still with slow deliberate speech. EXPERIMENTAL ASSEMBLER recommended modified diet. Adult diet Easy to Chew 24HR INTAKE/OUTPUT: Intake/Output Summary (Last 24 hours) at 05/30/2025 1315 Last data filed at 05/30/2025 0544 Gross per 24 hour Intake 1750 ml Output 225 ml Net 1525 ml Past Medical History: Medical History[1] LABS: CBC: Recent Labs 05/29/25 0040 05/30/25 0130 WBC 7.7 9.5 RBC 4.17 3.66* HGB 13.1 11.4* HCT 38.6 34.0* MCV 92.6 92.9 RDW 13.1 13.0 PLT 211 164 BMP: Recent Labs 05/29/25 0040 05/30/25 0130 05/30/25 0354 NA 141 136 137 K 3.4* 4.0 3.7 CL 109* 109* 111* CO2 25 22* 19* BUN 15 15 15 CREATININE 1.26* 1.15* 1.08 GLUCOSE 77* 109 101 CALCIUM 8.5* 8.3* 8.0* ANIONGAP 7 5 7 LIVER PROFILE: No results for input(s): "AST", "ALT", "BILITOT", "ALKPHOS", "PROT" in the last 72 hours. No lab exists for component: LABALBU PT/INR: Recent Labs 05/30/25 0130 PROTIME 10.8 INR 1.0 CARDIAC ENZYMES: No results for input(s): "TROPONINI" in the last 72 hours. Procalcitonin: No results found for: PROCAL COVID-19 PCR: No results for input(s): "COVID19" in the last 72 hours. Objective: Vitals: BP (!) 143/48 Pulse 63 Temp 36.6 C (97.8 F) (Temporal) Resp 23 Ht 5' 2.01" (1.575 m) Wt 185 lb (83.9 kg) SpO2 97% BMI 33.83 kg/m Pulse Ox: SpO2 Av.9 % Min: 91 % Max: 100 % Supplemental O2: O2 Flow Rate (L/min): 2 L/min GENERAL: Lying in bed comfortably, awake and alert HEENT: normocephalic, non-traumatic, MMM NECK: supple, trachea midline HEART: RRR, normal S1 and S2 LUNGS: good breath sounds bilaterally, no wheeze, no rhonchi, no rales ABD: soft, non-tender, no rebound, no guarding, +BS MSK: no edema noted SKIN: warm, dry NEURO: mild R facial droop PSYCH: appropriate affect Medications: Scheduled PRN Scheduled Meds[2] PRN Meds[3] Continuous Continuous Meds[4] Assessment 84-year-old female presented with right eye vision loss on May 23. CT head no acute intracranial abnormality. CT angiography of the head neck revealed bilateral 80% stenosis of the internal carotids. Additionally patient has a shaggy plaque in the aortic arch with an anterior penetrating oral ulcer. Carotid duplex showing <50% bilaterally, possible DAISHA stenosis < 60% Neurology recommends aspirin 81 mg daily Plavix 75 mg indefinitely for now. Per neurology "platelet agg studies pending for ASA and Plavix - may need to switch to DOAC if these come back abnormal " neurology signed off 05/29 s/p carotid endarterectomy with vascular surgery 05/30 had new R facial droop and dysarthria - CTA, MRI pending. Not a TNK candidate Bilateral carotid artery disease Ascending aortic ulcer/atherosclerosis Vision changes Acute R CRAO/recent L CRAO suspect large vessel atheroembolism in setting of aortic arch plaque and ulcer. Hypertension CKD GERD Mood disorder Thyroid disease Continue Norvasc aspirin statin Plavix Lexapro Synthroid losartan PPI Disposition [facility] rehab when stable, likely next 1-2 days 50 minutes spent in chart review, lab and radiology interpretation, patient eval, counseling and treatment plan. Extended Emergency Contact Information Primary Emergency Contact: Piper Hamilton (POA) Mobile Relation: Louis Whitney DO Division of Hospitalist Medicine [facility] [1] Past Medical History: Diagnosis Date Disease of thyroid gland Hypertension 01/01/2024 [2] [Held by provider] amLODIPine, 5 mg, Oral, Daily aspirin, 81 mg, Oral, Daily Or aspirin, 300 mg, Rectal, Daily atorvastatin, 80 mg, Oral, Nightly cholecalciferol, 1,000 Units, Oral, Daily clopidogrel, 75 mg, Oral, Daily enoxaparin, 40 mg, SubCUTAneous, Daily escitalopram, 10 mg, Oral, Daily levothyroxine, 112 mcg, Oral, qAM AC [Held by provider] losartan, 25 mg, Oral, Daily meclizine, 12.5 mg, Oral, Daily pantoprazole, 40 mg, Oral, Nightly sodium chloride 0.9%, 5-40 mL, IntraVENous, q12h [3] PRN medications: acetaminophen OR acetaminophen, bisacodyl, hydrALAZINE, labetalol, ondansetron ODT OR [DISCONTINUED] ondansetron, polyethylene glycol (PEG) 3350, prochlorperazine OR prochlorperazine OR prochlorperazine, sodium chloride, sodium chloride 0.9% [4] sodium chloride, 50 mL/hr, Last Rate: 50 mL/hr (05/30/25 0244) Family Communication Number Called: 1C 130 Room Phone Name of Designated Family Net Sql Developer: Piper Thomas Relationship: niece Phone Call Outcome: I spoke with the individual listed above. Family Net Sql Developer Updated on the Following: overnight events, findings of CT/CTA/CT Perfusion, plan for MRI brain. Martha cell phone number: [phone] Images from the original note were not included. Speech-Language Pathology SPEECH LANGUAGE PATHOLOGY [facility] Bedside Swallow Evaluation Patient Name: Diana Kohli Evaluation Date: 05/30/2025 Date of : 1940 Admission Date: 05/23/2025 7:45 PM Age: 84 y.o. Room/Bed: -130/1C-130 A IMPRESSION: No s/s oropharyngeal dysphagia. No overt clinical s/s pulmonary compromise with PO. Risk factors for aspiration include history of dysphagia, recent stroke, R facial droop. RECOMMENDATION: Recommend Easy to chew solids and Thin liquids and meds whole in puree and the following precautions: - Upright positioning for all PO intake - Slow rate of intake - Small bites/sips - No straws per patient preference - Assistance with meals Dysphagia NOMS: Level 6: Swallowing is safe, and individual eats and drinks independently and requires no more than minimal cueing. Individual usually self-cues when difficulty occurs. May need to avoid specific food items (e.g., popcorn) or require additional time (due to difficulty with mastication). Pt would benefit from skilled acute EXPERIMENTAL ASSEMBLER services to ensure patient tolerance of the recommended diet and assess for potential diet upgrade. Frequency: 3 days/wk for 1 week Barriers: Decreased endurance and Decreased sensation Prognosis: fair D/C Recommendations: to be determined Subjective Patient alert and cooperative. Seen upright in bed. Answers all basic questions with clear, strong vocal quality. Follows all basic commands. Visitors at bedside - niece. Spoke with ROBERT Lara who cleared pt to be evaluated. Dysphagia History: Retrospective chart review revealed a history of EXPERIMENTAL ASSEMBLER services as follows: recommended a regular diet with thin liquids on 04/19/25 Baseline Diet: Regular, per chart review and patient Current Diet: Dietary Orders (From admission, onward) Start Ordered 05/30/25 0050 NPO diet without enteral medications Diet effective now Comments: Swallow screen may be performed. NPO until swallow screen completed. Question: Medications? Answer: without enteral medications 05/30/25 005 Tube Feeding: no Tracheostomy: no Recent Chest Xray/CT of Chest: No results found for this visit on 05/23/25. Oxygen: O2 Delivery Method: Nasal cannula O2 Flow Rate (L/min): 2 L/min Past Medical History: Medical History[1] Past Surgical History: Surgical History[2] Admission Diagnosis: Patient Active Problem List Diagnosis Date Noted Stroke-like symptoms 05/24/2025 Acute cerebrovascular accident (CVA) due to ischemia (HCC) 05/23/2025 Acute loss of vision, left 04/18/2025 Hypertension 01/01/2024 Submental abscess 12/31/2023 Cellulitis of submental space 12/29/2023 Bilateral carotid artery stenosis 05/23/2025 History of Present Illness: 84 y.o. female with PMHx bilateral carotid artery stenosis s//p recent L carotid endarterectomy (05/29/25), suspected vascular dementia, L eye retinal occlusion who was at 1215 was noticed to develop R facial droop, R sided gaze deviation, and L sided weakness. Initially a rapid response team was called, who then called a stroke team. Of note, following patient's L carotid endarterectomy (05/29) in PACU she was noted to have R sided facial drooping that resolved by the time surgery team arrived. It was deemed to occur in the setting of hypotension. Patient Complaint: Mouth is dry, back is sore Pain: RN managing pain. 0-10 pain scale: 3/10 Location: back PPE Worn: gloves Objective Bedside swallow eval completed. Oral Motor Mechanism Facial Movement (CN VII) - Reduced on right Labial Structure/Function (CN VII) - Reduced on right Lingual Structure/Function (CN XII) - WFL Oral Hygiene: clean, xerostomia Swallowing Examination PO Trials - ice chips, (teaspoon) - thin liquid, (cup edge) - puree, (teaspoon) - easy to chew solids - regular solids Oral Phase Patient presents with adequate oral receipt of each bolus. There is no anterior bolus loss. There is appropriate bolus containment for each tested texture in the oral cavity. Mastication appeared complete, organized, and timely. Oral transit time appears WFL. There is no oral residue. Patient does not use straws at baseline, therefore same was not assessed Pharyngeal Phase Hyolaryngeal excursion clinically appears adequate and timely per palpation. 1-2 swallows palpated per bolus, likely indicative of adequate pharyngeal clearance. No overt clinical s/s airway penetration as evidenced by no cough, no throat clear, and no change in vocal quality. Education Education Given: safety, swallowing strategies, diet recommendations Given To: patient, niece, and RN Response: verbalizes understanding Goals Patient Stated Goal: To lay back down and get some rest Encounter Problems Encounter Problems (Active) Swallowing Patient will tolerate the least restrictive diet consistency to allow for safe consumption of daily meals (Initiated) Start: 05/30/25 Expected End: 06/13/25 Patient will tolerate recommended food and liquid consistencies without clinical signs and symptoms of aspirations (Initiated) Start: 05/30/25 Expected End: 06/13/25 Therapy Time EXPERIMENTAL ASSEMBLER Individual Minutes Time In: 0842 Time Out: 01 Minutes: 19 Lillian Damico CCC-EXPERIMENTAL ASSEMBLER [1] Past Medical History: Diagnosis Date Disease of thyroid gland Hypertension 01/01/2024 [2] Past Surgical History: Procedure Laterality Date CHOLECYSTECTOMY NECK EXPLORATION 01/02/2024 INCISION AND DRAINAGE DEEP ABCESS OR HEMATOMA SOFT TISSUE NECK OR THORAX Images from the original note were not included. PHYSICAL THERAPY [facility] Name/MRN: Diana Kohli ([id number]) Date: 05/30/2025 Treatment is being deferred at present because pt medical status does not allow participation d/t new R-sided facial droop overnight, slurred speech, and visual deficits. Communicated with PT for possible RE- EVAL MON/ MON d/t change in fxl status. Erin Shepard PTA Cosigned by Amairani Leiva, PT at 05/30/2025 8:01 AM EDT Images from the original note were not included. OCCUPATIONAL THERAPY [facility] Name/MRN: Diana Kohli ([id number]) Date: 05/30/2025 Treatment is being deferred at present because pt medical status does not allow participation: D/t New R- sided facial droop overnight, slurred speech, and visual deficits. Communicated with OTR/L for RE- EVAL SUN/ MON d/t change in fxl status. SB Wall Cosigned by Marta Shah OT at 05/30/2025 9:16 AM EDT PROGRESS NOTE. STROKE SERVICE Patient Name:Diana Kohli Patient : 1940 Acct: [id number] Date of Admission: 05/23/2025 Room/Bed: 1C130/[facility]130 A PCP: Charlene Walker MD Patient location Telemetry Remains in the hospital for completion of stroke riskassessment, Subjective: New Complain: Stroke team was called overnight for new onset right facial droop, right sided gaze devation and left sided weakness at 12:15 AM (05/30). Of note, the patient is s/p L CEA (05/29) after which she was noted to have right facial droop in PACU - this was deemed to be secondary to hypotension (BP 120/41 at the time). No acute events in the interim this morning. The right side face appears droopy as the patient is laying on that side, however, she has left sided facial droop. Per niece at bedside, the patient is otherwise functioning at her cognitive baseline and has no new complaints. Sedation:No Diet/TF: DISTRIBUTOR CLEANER diet with enteral meds [place]: No VTE prophylaxis: YES Lovenox Antithrombotic therapy in first 24 hrs: N/A Statin therapy for stroke stroke patients: High intensity Anticoagulation on AF patients: N/A no history of AF Activity: Up walking Disposition: continue to monitor in hospital Current Hospital Medications: Current Medications[1] Continuous Infusions: Continuous Meds[2] Allergies: Patient has no known allergies. ROS: Review of Systems Neurological: Positive for facial asymmetry and weakness. Objective: Telemetry: Arrhythmia:Bradycardia Physical Examination: Patient Vitals for the past 8 hrs: BP Temp Temp src Pulse Resp SpO2 05/30/25 0510 142/51 -- -- -- -- -- 05/30/25 0500 (!) 150/41 -- -- 53 (!) 26 96 % 05/30/25 0400 149/65 -- -- (!) 48 21 96 % 05/30/25 0324 -- (!) 35.9 C (96.7 F) Temporal -- -- -- 05/30/25 0300 154/57 -- -- 53 18 96 % 05/30/25 0200 141/50 -- -- 53 23 93 % 05/30/25 0130 (!) 145/44 -- -- -- -- -- 05/30/25 0030 (!) 133/115 -- -- -- -- -- 05/30/25 0000 (!) 136/45 -- -- 68 23 92 % 05/29/25 2337 (!) 174/56 -- -- -- -- -- 05/29/25 2330 (!) 193/59 -- -- (!) 45 18 96 % I/O last 3 completed shifts: In: 1750 (20.9 mL/kg) [P.O.:250; I.V.:1500 (17.9 mL/kg)] Out: 225 (2.7 mL/kg) [Urine:200 (0.1 mL/kg/hr); Blood:25] Weight: 83.9 kg General Physical Examination: General: The patient is sleeping, lying on her left side HEENT:Normocephalic, atraumaticl CV: S1+S2, RRR, no MRG. Pulm:CTA b/l, unlabored Abdomen: Soft NT/ND. BS + Skin: Scar to the left side neck, in keeping with recent L CEA Extremities: normal with no edema or cyanosis Orthopedic limitation: Bilateral hip flexion weakness, L slightly greater than right Pulses: Intact peripherally Carotid auscultation :No bruits Neurological Examination: Higher Functions: Mental Status Exam: Level of Alertness:Somnolent butarrousable Orientation: Normal toself, time, place Memory: Limited by level of consciousness Fund of Knowledge: Limited by level of consciousness Language: Normal Dysarthria not present Cranial Nerves: -II Visual acuity: normal -II Visualfields: normal -III Pupils (~ 2 mm OD, 2 mm OU) equal, round, reactive to light -III-IV- Extraocular Movements: intact -Nystagmus not present -Saccades and pursuits normal -V Facial sensation: intact Corneal's Intact bilateral -VII Facial strength:intact -VIII Hearing: intact -IX-X - Gag reflex present -X Palate: intact -XI Shoulder shrug: intact -XII Tongue movement: normal MotorExamination: Tone after evaluation of 4 limbs, the following findings applied: Normal . . -Bulk: normal -Muscle Stretch afterevaluation of all limbs, and axial musculature the following findings applied: Drift: not participant limited reliability, patient not participant -Reflexes: after evaluation of 4 limbs, the following findings applied ; normal all limbs -Plantar responce: Flexor bilaterally Sensory Intact to light touch, pain / temperature, proprioception, Coordination: Arms Normal finger to nose Legs limited reliability of exam/ poor participation Tremors not present Gait abnormal, patient unable to walk due to acute circumstances / bed rest / safety concerns NIHSS: 5 ANCILLARY Last 24hrs Recent Results (from the past 24 hours) POCT glucose meter Collection Time: 05/30/25 12:34 AM Result Value Ref Range Glucose 114 (H) 70 - 100 mg/dL CBC Collection Time: 05/30/25 1:30 AM Result Value Ref Range Auto WBC 9.5 3.6 - 10.7 10*3/uL RBC 3.66 (L) 3.80 - 5.20 10*6/uL Hemoglobin 11.4 (L) 11.7 - 16.0 g/dL Hematocrit 34.0 (L) 35.0 - 47.0 % MCV 92.9 77.0 - 99.0 fL MCH 31.1 26.0 - 34.0 pg MCHC 33.5 30.5 - 36.0 % RDW 13.0 11.5 - 15.0 % Platelets 164 140 - 440 10*3/uL MPV 10.0 9.0 - 12.7 fL Serial Troponin, High Sensitivity Collection Time: 05/30/25 1:30 AM Result Value Ref Range Troponin HS Serial Baseline 8 <=14 ng/L PROTIME/INR & PTT Collection Time: 05/30/25 1:30 AM Result Value Ref Range PROTHROMBIN TIME 10.8 9.0 - 12.0 s INR 1.0 0.9 - 1.1 APTT 26.0 20.0 - 30.5 s Basic metabolic panel Collection Time: 05/30/25 1:30 AM Result Value Ref Range SODIUM 136 136 - 145 mmol/L POTASSIUM 4.0 3.5 - 5.1 mmol/L CHLORIDE 109 (H) 98 - 107 mmol/L CARBON DIOXIDE 22 (L) 23 - 31 mmol/L UREA NITROGEN 15 9 - 23 mg/dL CREATININE 1.15 (H) 0.57 - 1.11 mg/dL GLUCOSE 109 82 - 115 mg/dL CALCIUM 8.3 (L) 8.8 - 10.0 mg/dL ANION GAP 5 3 - 13 mmol/L eGFR 47.7 (L) >60.0 mL/min/1.73m*2 Magnesium Collection Time: 05/30/25 1:30 AM Result Value Ref Range MAGNESIUM 1.7 1.6 - 2.6 mg/dL Phosphorus Collection Time: 05/30/25 1:30 AM Result Value Ref Range PHOSPHORUS 4.6 2.3 - 4.7 mg/dL ECG 12 lead if not already done by Squad Collection Time: 05/30/25 1:35 AM Result Value Ref Range Heart Rate 55 bpm QRSD Interval 96 ms QT Interval 515 ms QTC Interval 495 ms P [place] 42 degrees QRS [place] 42 degrees T Wave [place] 75 degrees TX Interval 179 ms Basic metabolic panel Collection Time: 05/30/25 3:54 AM Result Value Ref Range SODIUM 137 136 - 145 mmol/L POTASSIUM 3.7 3.5 - 5.1 mmol/L CHLORIDE 111 (H) 98 - 107 mmol/L CARBON DIOXIDE 19 (L) 23 - 31 mmol/L UREA NITROGEN 15 9 - 23 mg/dL CREATININE 1.08 0.57 - 1.11 mg/dL GLUCOSE 101 82 - 115 mg/dL CALCIUM 8.0 (L) 8.8 - 10.0 mg/dL ANION GAP 7 3 - 13 mmol/L eGFR 51.4 (L) >60.0 mL/min/1.73m*2 Troponin, High Sensitivity, Serial, Second Test Collection Time: 05/30/25 3:54 AM Result Value Ref Range 2h Troponin HS (Serial 2nd Troponin) 9 <=14 ng/L CT head: 05/30 - CTH w/o contrast - no acute infarct 05/30 - CTA head/neck angio - no focal or global perfusion defect. Surgical change w/i L ICA with fusiform dilatation following endarterectomy. Persistent significant stenosis in the right proximal ICA in the range of at least 60-70%. Dense calcified plaque w/i distal ICA greater on left MRI: pending ASSESSMENT/ PLAN/RECOMMENDATIONS: New symptoms of left hemiparesis in association with right gaze deviation after L CEA Suspect right hemispheric stroke, likely atheroembolic in etiology - will obtain repeat CT head tomorrow morning to assess for bleed. If any such findings, can cancel MRI. Otherwise, will obtain MRI tomorrow afternoon. - continue ASA 81mg and Plavix 75mg daily - Neurochecks q4 hours Patient seen and discussed with Dr. Jade Goode [1] Current Facility-Administered Medications: acetaminophen (Tylenol) tablet 650 mg, 650 mg, Oral, q6h PRN, 650 mg at 05/26/25 1451 OR acetaminophen (Tylenol) suppository 650 mg, 650 mg, Rectal, q6h PRN, Kiara Mario MD [Held by provider] amLODIPine (Norvasc) tablet 5 mg, 5 mg, Oral, Daily, Kiara Mario MD, 5 mg at 05/29/252017 aspirin EC tablet 81 mg, 81 mg, Oral, Daily, 81 mg at 05/29/25 0806 OR aspirin suppository 300 mg, 300 mg, Rectal, Daily, Kiara Mario MD atorvastatin (Lipitor) tablet 80 mg, 80 mg, Oral, Nightly, Kiara Mario MD, 80 mg at 05/29/252017 bisacodyl (Dulcolax) suppository 10 mg, 10 mg, Rectal, Daily PRN, Kiara Mario MD cholecalciferol (Vitamin D-3) tablet 1,000 Units, 1,000 Units, Oral, Daily, Kiara Mario MD, 1,000 Units at 05/29/25805 clopidogrel (Plavix) tablet 75 mg, 75 mg, Oral, Daily, Kiara Mario MD, 75 mg at 05/29/25805 enoxaparin (Lovenox) syringe 40 mg, 40 mg, SubCUTAneous, Daily, Kiara Mario MD, 40 mg at 05/29/25 0808 escitalopram (Lexapro) tablet 10 mg, 10 mg, Oral, Daily, Kiara Mario MD, 10 mg at 05/29/25 08 hydrALAZINE (Apresoline) injection 10 mg, 10 mg, IntraVENous, q4h PRN, Barbara Gutierrez MD labetalol (Normodyne,Trandate) injection 10 mg, 10 mg, IntraVENous, q4h PRN, Barbara Gutierrez MD levothyroxine (Synthroid, Levoxyl) tablet 112 mcg, 112 mcg, Oral, qAM AC, Kiara Mario MD, 112 mcg at 05/29/25 0552 [Held by provider] losartan (Cozaar) tablet 25 mg, 25 mg, Oral, Daily, Kiara Mario MD, 25 mg at 05/29/25805 meclizine (Antivert) tablet 12.5 mg, 12.5 mg, Oral, Daily, Kiara Mario MD, 12.5 mg at 05/29/25 08 ondansetron ODT (Zofran-ODT) disintegrating tablet 4 mg, 4 mg, Oral, q8h PRN, 4 mg at 05/24/25 0335 OR [DISCONTINUED] ondansetron (Zofran) injection 4 mg, 4 mg, IntraVENous, q6h PRN, Petrona Taylor, 4 mg at 05/24/25 1234 pantoprazole (ProtoNix) EC tablet 40 mg, 40 mg, Oral, Nightly, 40 mg at 05/29/25 2018 OR [DISCONTINUED] pantoprazole (ProtoNix) 40 mg in sodium chloride (PF) 0.9 % 10 mL injection, 40 mg, IntraVENous, Nightly, Jas Flores DO polyethylene glycol (PEG) 3350 (Miralax) packet 17 g, 17 g, Oral, Daily PRN, Kiara Mario MD, 17 g at 05/26/25 1103 prochlorperazine (Compazine) tablet 10 mg, 10 mg, Oral, q6h PRN OR prochlorperazine (Compazine) injection 10 mg, 10 mg, IntraVENous, q6h PRN OR prochlorperazine (Compazine) suppository 25 mg, 25 mg, Rectal, q12h PRN, Kiara Mario MD sodium chloride 0.9 % infusion, 5-250 mL/hr, IntraVENous, PRN, Kiara Mario MD sodium chloride 0.9 % infusion, 50 mL/hr, IntraVENous, Continuous, Yobany Escalante DO, Last Rate: 50 mL/hr at 05/30/25 0244, 50 mL/hr at 05/30/25 024 sodium chloride 0.9% (NS) flush 5-40 mL, 5-40 mL, IntraVENous, q12h, Kiara Mario MD, 10 mL at 05/29/25 2018 sodium chloride 0.9% (NS) flush 5-40 mL, 5-40 mL, IntraVENous, PRN, Kiara Mario MD [2] sodium chloride, 50 mL/hr, Last Rate: 50 mL/hr (05/30/25243) Cosigned by Jade Goode MD at 05/30/2025 2:11 PM EDT Associated attestation - Jade Goode MD - 05/30/2025 2:11 PM EDT Neuro Critical Care / stroke Attending Patient personally evaluated with my resident and case discussed with niece She has left hemiparesis, face, arm and leg , mild somnolence , dysarthria , horizontal gaze preference and mild left hemineglect Her motor is however good, only 1 nIH for arm and 1 for leg , Over all NIHSS 09/18/ / / / 09/18/ = 7 CT , CTA and CTP reviewed Impression - right hemispheric stroke, NIHSS 7 , suspect M3 occlusion Mechanism suspect athero to athero in the setting of Severe right ICA stenosis, symptomatic Severe atherosclerosis of the aortic arch ` Patient status post left ICA CEA , ( vessel looked good on CTA study Plan , will avoid MRI if possible, do to patient's comfort. We already know she has a stroke and the cause, will obtain CT head tomorrow am , if this does NOT demonstrates the stroke will purse MRI then Ensure euvolemic DYANA Be aware of her HEENA, and clinical worsening secondary to her stroke Avoid AIRPLANE PILOT suppressants if possible Increase activity tomorrow , out of bed She is at risk for clinical worsening DYANA OK for now Ensure DVT prophylaxis as you are nicolette I personally interviewed and examined this patient , personally completed completed the note for this patient. I reviewed the chart including MAR, labs, neuroimaging, other imaging studies and discussed my diagnostic impression and patient's plan of care with my TANMAY/resident/ Fellow , student and the consulting team and patient's family members/surrogate decision makers (in cases where the patient is incapacitated and unable to participate in their own care). [x] Encounter Face to Face [x] follow up [x] Time spend [x] 50 [x] will continue to follow Personal discussion of test results and plan of care with: Patient treatments and testing options informed consent and plan of care, Family, ., ., . Thank you Charlene Walker MD for the opportunity to be involved in this patient's care. Images from the original note were not included. Department of General Surgery Daily Progress Note ADMIT DATE: 05/23/2025 TODAY'S DATE: 05/30/2025 SUBJECTIVE: S/p L CEA. Concerns for new right sided facial droop overnight with slurred speech, left hemiparesis, and rightward gaze deviation. Head imaging negative. Patient denies any symptoms this AM. Denies: fevers, chills, nausea, vomiting, shortness of breath or chest pain. ROS: Noted above unless otherwise mentioned OBJECTIVE: VITALS: Temp: [35.9 C (96.7 F)-37.1 C (98.7 F)] 35.9 C (96.7 F) Heart Rate: [45-68] 53 Resp: [14-26] 26 BP: (98-193)/(41-115) 142/51 INTAKE/OUTPUT: Intake/Output Summary (Last 24 hours) at 05/30/2025 07 Last data filed at 05/30/2025 0544 Gross per 24 hour Intake 1750 ml Output 225 ml Net 1525 ml I/O last 3 completed shifts: In: 1750 (20.9 mL/kg) [P.O.:250; I.V.:1500 (17.9 mL/kg)] Out: 225 (2.7 mL/kg) [Urine:200 (0.1 mL/kg/hr); Blood:25] Weight: 83.9 kg No intake/output data recorded. PHYSICAL EXAM: Gen: NAD, A&Ox3, pain well controlled Neck: incision c/d/I attp HEENT: left facial droop, right sided and upward eye deviation Heart: RRR, well perfused Lungs: symmetric chest rise, normal work of breathing, breath sounds b/l Abd: soft, non tender, non distended. Non rigid. Ext: no c/c/e no gross deformities Skin: warm, well perfused, no obvious rashes, cellulitis or gross discoloration LABS CBC: Auto WBC Date Value Ref Range Status 05/30/2025 9.5 3.6 - 10.7 10*3/uL Final 05/29/2025 7.7 3.6 - 10.7 10*3/uL Final 05/25/2025 10.7 3.6 - 10.7 10*3/uL Final Hemoglobin Date Value Ref Range Status 05/30/2025 11.4 (L) 11.7 - 16.0 g/dL Final 05/29/2025 13.1 11.7 - 16.0 g/dL Final 05/25/2025 13.5 11.7 - 16.0 g/dL Final Platelets Date Value Ref Range Status 05/30/2025 164 140 - 440 10*3/uL Final 05/29/2025 211 140 - 440 10*3/uL Final 05/25/2025 203 140 - 440 10*3/uL Final BMP: SODIUM Date Value Ref Range Status 05/30/2025 137 136 - 145 mmol/L Final 05/30/2025 136 136 - 145 mmol/L Final 05/29/2025 141 136 - 145 mmol/L Final POTASSIUM Date Value Ref Range Status 05/30/2025 3.7 3.5 - 5.1 mmol/L Final Comment: Plasma potassium values may be up to 0.5 mmol/L lower than serum values. 05/30/2025 4.0 3.5 - 5.1 mmol/L Final Comment: Plasma potassium values may be up to 0.5 mmol/L lower than serum values. 05/29/2025 3.4 (L) 3.5 - 5.1 mmol/L Final Comment: Plasma potassium values may be up to 0.5 mmol/L lower than serum values. CHLORIDE Date Value Ref Range Status 05/30/2025 111 (H) 98 - 107 mmol/L Final 05/30/2025 109 (H) 98 - 107 mmol/L Final 05/29/2025 109 (H) 98 - 107 mmol/L Final CARBON DIOXIDE Date Value Ref Range Status 05/30/2025 19 (L) 23 - 31 mmol/L Final 05/30/2025 22 (L) 23 - 31 mmol/L Final 05/29/2025 25 23 - 31 mmol/L Final UREA NITROGEN Date Value Ref Range Status 05/30/2025 15 9 - 23 mg/dL Final 05/30/2025 15 9 - 23 mg/dL Final 05/29/2025 15 9 - 23 mg/dL Final CREATININE Date Value Ref Range Status 05/30/2025 1.08 0.57 - 1.11 mg/dL Final 05/30/2025 1.15 (H) 0.57 - 1.11 mg/dL Final 05/29/2025 1.26 (H) 0.57 - 1.11 mg/dL Final Hepatic: AST (SGOT) Date Value Ref Range Status 05/25/2025 24 <34 U/L Final 05/24/2025 21 <34 U/L Final 05/23/2025 24 <34 U/L Final ALT Date Value Ref Range Status 05/25/2025 13 <30 U/L Final 05/24/2025 13 <30 U/L Final 05/23/2025 18 <30 U/L Final ALBUMIN Date Value Ref Range Status 05/25/2025 3.0 (L) 3.4 - 4.8 g/dL Final 05/24/2025 3.2 (L) 3.4 - 4.8 g/dL Final 05/23/2025 3.7 3.4 - 4.8 g/dL Final BILIRUBIN, TOTAL Date Value Ref Range Status 05/25/2025 1.0 <1.2 mg/dL Final 05/24/2025 1.2 (H) <1.2 mg/dL Final 05/23/2025 1.0 <1.2 mg/dL Final BILIRUBIN, DIRECT Date Value Ref Range Status 12/28/2023 0.0 0.0 - 0.3 mg/dL Final ALKALINE PHOSPHATASE Date Value Ref Range Status 05/25/2025 161 (H) 40 - 150 U/L Final 05/24/2025 180 (H) 40 - 150 U/L Final 05/23/2025 209 (H) 40 - 150 U/L Final Current Inpatient Medications Scheduled Meds:Scheduled Meds[1] Continuous Infusions:Continuous Meds[2] PRN Meds:PRN Meds[3] ASSESSMENT AND PLAN: 84 y.o. 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 Vitale This note may have been dictated using [employer] Medical Practice Edition 2.6 and/or [employer] Voice Recognition Feature. The document was proofread; however, unrecognized voice recognition nutrition aide errors may be present. [1] [Held by provider] amLODIPine, 5 mg, Oral, Daily aspirin, 81 mg, Oral, Daily Or aspirin, 300 mg, Rectal, Daily atorvastatin, 80 mg, Oral, Nightly cholecalciferol, 1,000 Units, Oral, Daily clopidogrel, 75 mg, Oral, Daily enoxaparin, 40 mg, SubCUTAneous, Daily escitalopram, 10 mg, Oral, Daily levothyroxine, 112 mcg, Oral, qAM AC [Held by provider] losartan, 25 mg, Oral, Daily meclizine, 12.5 mg, Oral, Daily pantoprazole, 40 mg, Oral, Nightly sodium chloride 0.9%, 5-40 mL, IntraVENous, q12h [2] sodium chloride, 50 mL/hr, Last Rate: 50 mL/hr (05/30/25 0244) [3] PRN medications: acetaminophen OR acetaminophen, bisacodyl, hydrALAZINE, labetalol, ondansetron ODT OR [DISCONTINUED] ondansetron, polyethylene glycol (PEG) 3350, prochlorperazine OR prochlorperazine OR prochlorperazine, sodium chloride, sodium chloride 0.9% Cosigned by Janeth Vitale MD at 05/30/2025 1:15 PM EDT Associated attestation - Janeth Vitale MD - 05/30/2025 1:15 PM EDT I saw and evaluated the patient. I agree with the findings and plan of care as documented in the resident s note unless otherwise noted below. Overnight events noted and discussed with overnight resident and covering partner. Patient with rightward gaze. Alert and oriented. Following commands. Good radiologic technologist strength in the upper extremities bilaterally and lower extremities bilaterally. Some left hand swelling present. Left neck incision c/d/I. Some ecchymosis present but no hematoma. Symptoms appear to be associated with right hemisphere. Neurology following. Left CEA repair is patent. No left hemispheric symptoms. The patient's overnight events and imaging findings were discussed with the patient's niece Martha who was present bedside. Vascular surgery interval update Stroke team called, amanda Kaur CEA today. Patient with history of known visual deficits and shaggy aorta. Of note, pt did have right facial droop in PACU which was transient and self resolved. Chart review reveals patient had been hypertensive tonight with systolics to 150s-180s but received prns x2 with systolics ~100s when I arrived to patient room. NCC residents at bedside. New rightward gaze deviation and left hemiparesis, return of right sided facial droop. Read pending but on preliminary review left CEA looks good, no large vessel occlusion. BP goals can be liberalized to Neuro critical care recommendations. Dispo up to NCC/primary. Not a candidate for thrombolytics in recent post operative state. FARHAN Lai, earth observations chief scientist for Dr Iam Gutierrez MD PGY-4, General Surgery Pager# [phone] 05/30/2025 1:54 AM Paged to patient bedside with concerns for right facial droop At patient bedside, anesthesia also present Patient had low BP and anesthesia had just medicated Vitals: 05/29/25 1415 BP: (!) 120/41 Pulse: 52 Resp: 15 Temp: SpO2: 100% Patient A&Ox4, no changes in vision from baseline Neuro intact with equal motor, strength, and sensation to all 4 extremities No facial droop appreciated Ok to transfer to when dc'ed from PACU Kiara Mario MD PGY3 General Surgery Hospitalist Progress Note 05/29/2025 Subjective: Admit Date: 05/23/2025 PCP: Charlene Walker MD Room#: OR/NONE Interval History: Patient seen postop in PACU. Patient evaluated in PACU for. Patient is still waking up from anesthesia able to state her name. RN is at bedside. Discussed with RN at bedside, no complications reported. NPO diet with enteral medications 24HR INTAKE/OUTPUT: No intake or output data in the 24 hours ending 05/29/25 1151 Past Medical History: Medical History[1] LABS: CBC: Recent Labs 05/29/25 0040 WBC 7.7 RBC 4.17 HGB 13.1 HCT 38.6 MCV 92.6 RDW 13.1 PLT 211 BMP: Recent Labs 05/29/25 0040 NA 141 K 3.4* CL 109* CO2 25 BUN 15 CREATININE 1.26* GLUCOSE 77* CALCIUM 8.5* ANIONGAP 7 LIVER PROFILE: No results for input(s): "AST", "ALT", "BILITOT", "ALKPHOS", "PROT" in the last 72 hours. No lab exists for component: LABALBU PT/INR: No results for input(s): "PROTIME", "INR" in the last 72 hours. CARDIAC ENZYMES: No results for input(s): "TROPONINI" in the last 72 hours. Procalcitonin: No results found for: PROCAL COVID-19 PCR: No results for input(s): "COVID19" in the last 72 hours. Objective: Vitals: BP (!) 174/73 Pulse 54 Temp 36.7 C (98 F) (Temporal) Resp 18 Ht 5' 2.01" (1.575 m) Wt 185 lb (83.9 kg) SpO2 93% BMI 33.83 kg/m Pulse Ox: SpO2 Av.7 % Min: 91 % Max: 94 % Supplemental O2: O2 Flow Rate (L/min): 2 L/min Physical Exam HENT: Head: Normocephalic and atraumatic. Cardiovascular: Rate and Rhythm: Normal rate and regular rhythm. Pulmonary: Effort: Pulmonary effort is normal. No respiratory distress. Abdominal: General: Bowel sounds are normal. Palpations: Abdomen is soft. Tenderness: There is no abdominal tenderness. Neurological: Mental Status: She is alert and oriented to person, place, and time. Medications: Scheduled PRN Scheduled Meds[2] PRN Meds[3] Continuous Continuous Meds[4] Assessment 84-year-old female presented with right eye vision loss on May 23. CT head no acute intracranial abnormality. CT angiography of the head neck revealed bilateral 80% stenosis of the internal carotids. Additionally patient has a shaggy plaque in the aortic arch with an anterior penetrating oral ulcer. Carotid duplex showing <50% bilaterally, possible DAISHA stenosis < 60% Neurology recommends aspirin 81 mg daily Plavix 75 mg indefinitely for now. Per neurology "platelet agg studies pending for ASA and Plavix - may need to switch to DOAC if these come back abnormal " neurology signed off 05/29 s/p carotid endarterectomy with vascular surgery Bilateral carotid artery disease Ascending aortic ulcer/atherosclerosis Vision changes Acute R CRAO/recent L CRAO suspect large vessel atheroembolism in setting of aortic arch plaque and ulcer. Hypertension CKD GERD Mood disorder Thyroid disease Continue Norvasc aspirin statin Plavix Lexapro Synthroid losartan PPI Disposition [facility] Extended Emergency Contact Information Primary Emergency Contact: Piper Hamilton (POA) Mobile Relation: Louis Jessica DO Division of Hospitalist Medicine [facility] [1] Past Medical History: Diagnosis Date Disease of thyroid gland Hypertension 01/01/2024 [2] [Transfer Hold] amLODIPine, 5 mg, Oral, Daily [Transfer Hold] aspirin, 81 mg, Oral, Daily Or [Transfer Hold] aspirin, 300 mg, Rectal, Daily [Transfer Hold] atorvastatin, 80 mg, Oral, Nightly [Transfer Hold] cholecalciferol, 1,000 Units, Oral, Daily [Transfer Hold] clopidogrel, 75 mg, Oral, Daily [Transfer Hold] enoxaparin, 40 mg, SubCUTAneous, Daily [Transfer Hold] escitalopram, 10 mg, Oral, Daily [Transfer Hold] levothyroxine, 112 mcg, Oral, qAM AC [Transfer Hold] losartan, 25 mg, Oral, Daily [Transfer Hold] meclizine, 12.5 mg, Oral, Daily [Transfer Hold] pantoprazole, 40 mg, Oral, Nightly [Transfer Hold] potassium chloride CR, 40 mEq, Oral, Daily [Transfer Hold] sodium chloride 0.9%, 5-40 mL, IntraVENous, q12h [3] PRN medications: [Transfer Hold] acetaminophen OR [Transfer Hold] acetaminophen, [Transfer Hold] bisacodyl, [Transfer Hold] labetalol, [Transfer Hold] ondansetron ODT OR [Transfer Hold] ondansetron, [Transfer Hold] polyethylene glycol (PEG) 3350, [Transfer Hold] prochlorperazine OR [Transfer Hold] prochlorperazine OR [Transfer Hold] prochlorperazine, [Transfer Hold] sodium chloride, [Transfer Hold] sodium chloride 0.9% [4] Images from the original note were not included. PHYSICAL THERAPY [facility] Name/MRN: Diana Kohli ([id number]) Date: 05/29/2025 Treatment is being deferred at present because pt is currently off of the floor , vascular surgery. Ivy Simmons GLOBE CHANGER Cosigned by Abril Bianchi, PT at 05/29/2025 3:36 PM EDT Images from the original note were not included. Department of General Surgery Daily Progress Note ADMIT DATE: 05/23/2025 TODAY'S DATE: 05/29/2025 SUBJECTIVE: NAEON. Confirms NPO for OR today. No questions this AM. Denies: fevers, chills, nausea, vomiting, shortness of breath or chest pain. ROS: Noted above unless otherwise mentioned OBJECTIVE: VITALS: Temp: [35.9 C (96.7 F)-36.7 C (98.1 F)] 36.4 C (97.6 F) Heart Rate: [51-60] 51 Resp: [15-18] 15 BP: (155-173)/(59-85) 160/61 INTAKE/OUTPUT: No intake or output data in the 24 hours ending 05/29/25 0717 No intake/output data recorded. No intake/output data recorded. PHYSICAL EXAM: Gen: NAD, A&Ox3, pain well controlled Heart: RRR, well perfused Lungs: symmetric chest rise, normal work of breathing, breath sounds b/l Abd: soft, non tender, non distended. Non rigid. Ext: no c/c/e no gross deformities Skin: warm, well perfused, no obvious rashes, cellulitis or gross discoloration LABS CBC: Auto WBC Date Value Ref Range Status 05/29/2025 7.7 3.6 - 10.7 10*3/uL Final 05/25/2025 10.7 3.6 - 10.7 10*3/uL Final 05/24/2025 14.2 (H) 3.6 - 10.7 10*3/uL Final Hemoglobin Date Value Ref Range Status 05/29/2025 13.1 11.7 - 16.0 g/dL Final 05/25/2025 13.5 11.7 - 16.0 g/dL Final 05/24/2025 14.7 11.7 - 16.0 g/dL Final Platelets Date Value Ref Range Status 05/29/2025 211 140 - 440 10*3/uL Final 05/25/2025 203 140 - 440 10*3/uL Final 05/24/2025 214 140 - 440 10*3/uL Final BMP: SODIUM Date Value Ref Range Status 05/29/2025 141 136 - 145 mmol/L Final 05/25/2025 138 136 - 145 mmol/L Final 05/24/2025 138 136 - 145 mmol/L Final POTASSIUM Date Value Ref Range Status 05/29/2025 3.4 (L) 3.5 - 5.1 mmol/L Final Comment: Plasma potassium values may be up to 0.5 mmol/L lower than serum values. 05/25/2025 3.7 3.5 - 5.1 mmol/L Final Comment: Plasma potassium values may be up to 0.5 mmol/L lower than serum values. 05/24/2025 3.5 3.5 - 5.1 mmol/L Final Comment: Plasma potassium values may be up to 0.5 mmol/L lower than serum values. CHLORIDE Date Value Ref Range Status 05/29/2025 109 (H) 98 - 107 mmol/L Final 05/25/2025 107 98 - 107 mmol/L Final 05/24/2025 107 98 - 107 mmol/L Final CARBON DIOXIDE Date Value Ref Range Status 05/29/2025 25 23 - 31 mmol/L Final 05/25/2025 24 23 - 31 mmol/L Final 05/24/2025 22 (L) 23 - 31 mmol/L Final UREA NITROGEN Date Value Ref Range Status 05/29/2025 15 9 - 23 mg/dL Final 05/25/2025 14 9 - 23 mg/dL Final 05/24/2025 14 9 - 23 mg/dL Final CREATININE Date Value Ref Range Status 05/29/2025 1.26 (H) 0.57 - 1.11 mg/dL Final 05/25/2025 1.31 (H) 0.57 - 1.11 mg/dL Final 05/24/2025 1.18 (H) 0.57 - 1.11 mg/dL Final Hepatic: AST (SGOT) Date Value Ref Range Status 05/25/2025 24 <34 U/L Final 05/24/2025 21 <34 U/L Final 05/23/2025 24 <34 U/L Final ALT Date Value Ref Range Status 05/25/2025 13 <30 U/L Final 05/24/2025 13 <30 U/L Final 05/23/2025 18 <30 U/L Final ALBUMIN Date Value Ref Range Status 05/25/2025 3.0 (L) 3.4 - 4.8 g/dL Final 05/24/2025 3.2 (L) 3.4 - 4.8 g/dL Final 05/23/2025 3.7 3.4 - 4.8 g/dL Final BILIRUBIN, TOTAL Date Value Ref Range Status 05/25/2025 1.0 <1.2 mg/dL Final 05/24/2025 1.2 (H) <1.2 mg/dL Final 05/23/2025 1.0 <1.2 mg/dL Final BILIRUBIN, DIRECT Date Value Ref Range Status 12/28/2023 0.0 0.0 - 0.3 mg/dL Final ALKALINE PHOSPHATASE Date Value Ref Range Status 05/25/2025 161 (H) 40 - 150 U/L Final 05/24/2025 180 (H) 40 - 150 U/L Final 05/23/2025 209 (H) 40 - 150 U/L Final Current Inpatient Medications Scheduled Meds:Scheduled Meds[1] Continuous Infusions:Continuous Meds[2] PRN Meds:PRN Meds[3] ASSESSMENT AND PLAN: 84 y.o. female with vision changes in setting of bilateral carotid artery disease and ascending aortic ulcer - Plan for OR today - NPO, ok to resume diet after OR - Pain and nausea control PRN - Strict BP control - Rest of care per primary Will discuss with Dr. Vitale This note may have been dictated using [employer] Medical Practice Edition 2.6 and/or [employer] Voice Recognition Feature. The document was proofread; however, unrecognized voice recognition nutrition aide errors may be present. ATTENDING ATTESTATION: The patient was seen in the pre-operative area. She denies new symptoms. 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 Risks of surgery have been discussed at length. I have also contact her niece Martha this morning to ensure no further questions prior to surgery. Vascular Surgery Neurological Examination Pre Procedure Patient is awake yes Oriented self / place yes Following commands yes Responding verbally to questions yes Normal Vision Abnormal Bilateral blindness Eye deviation no Facial asymmetry no Normal motor exam arms & legs yes Normal sensory exam arms & legs yes Normal coordination arms and legs yes Normal Speech yes [1] amLODIPine, 5 mg, Oral, Daily aspirin, 81 mg, Oral, Daily Or aspirin, 300 mg, Rectal, Daily atorvastatin, 80 mg, Oral, Nightly cholecalciferol, 1,000 Units, Oral, Daily clopidogrel, 75 mg, Oral, Daily enoxaparin, 40 mg, SubCUTAneous, Daily escitalopram, 10 mg, Oral, Daily levothyroxine, 112 mcg, Oral, qAM AC losartan, 25 mg, Oral, Daily meclizine, 12.5 mg, Oral, Daily pantoprazole, 40 mg, Oral, Nightly sodium chloride 0.9%, 5-40 mL, IntraVENous, q12h [2] [3] PRN medications: acetaminophen OR acetaminophen, bisacodyl, labetalol, ondansetron ODT OR ondansetron, polyethylene glycol (PEG) 3350, prochlorperazine OR prochlorperazine OR prochlorperazine, sodium chloride, sodium chloride 0.9% Images from the original note were not included. PHYSICAL THERAPY [facility] Treatment Note Name/MRN: Diana Kohli ([id number]) Date of : 1940 Age: 84 y.o. Room/Bed: W3-325/W3-325 B Discharge Recommendation: Longterm Facility Other: TBD Assessment Patient remains limited by stroke like symptoms, endurance, and garrick LE strength. Patient required CGA for sit <> stand transfers from EOB using FWW. Patient ambulated 50 feet using FWW with CGA. Recommend discharge to SNF. Subjective Pt found sitting EOB. Cleared by nursing. Pt agrees to therapy. Pain: Pt denies any current pain. Medical Precautions: No active isolations Proper PPE donned/doffed in accordance with facility standards. Fall Risk: Ny Fall Risk Score: 70 (Medium Risk) Ny Fall Risk Score: 70 (High Risk) Precautions/Restrictions: Lines/Drains/Airways: PIV, bed alarm Overall Cognitive Status: WFL Overall Orientation Status: Oriented x4 Family/Caregiver Present: friend Objective Transfers/Mobility Sit to stand: Contact Guard Stand to sit: Contact Guard Toilet: SBA Increased time for transfers using FWW. Pt able to perform transfer from toilet using SBA and cueing for surroundings. Device(s) used: Front wheeled walker Ambulation Ambulation 1 Assistive device(s) used: Front wheeled walker Assist level: Contact Guard Distance (ft): 50 Quality of gait: shuffling, wide DELILAH, slow dewey Increased time, cueing for garrick foot clearance, cueing for decreased safety awareness when turning using FWW. Pt reports difficulty with vision due to no vision in R eye and limited vision in L eye. Exercises Exercises Hip Flexion: garrick LE 1x 10 reps Hip Adduction: garrick LE 1x 10 reps Knee Long Arc Quad: garrick LE 1x 10 reps Ankle Pumps: garrick LE 1x 10 reps Plan Continue acute PT per plan of care. Safety/Education Safety Safety Devices in place: All fall risk precautions in place, call light within reach, bed alarm in place, gait belt, patient at risk for falls, and patient left sitting EOB Restraints: No Education Education Given To: patient Education Provided: PT Role, PT Goals, Gait Training, and Plan of Care Education Method: Verbal Barriers to Learning: Vision Education Outcome: Verbalized Understanding Outcome Measures AM-PAC AM-PAC Inpatient Mobility Raw Score (No Stairs) : 15 JH-HLM JH-HLM Scale: Walked 25 ft or more (i.e. walked outside of room) Goals Patient Stated Goal: to go home Encounter Problems Encounter Problems (Active) Balance Patient will maintain dynamic standing balance for 2 minutes with modified independence in order to demonstrate decreased risk of falling. (Not Addressed) Start: 05/24/25 Expected End: 06/21/25 Balance Patient will maintain static standing balance for 3 minutes with modified independence in order to demonstrate decreased risk of falling. (Not Addressed) Start: 05/24/25 Expected End: 06/21/25 Mobility Patient will ambulate 50 feet with modified independence and rolling walker in order to improve safety and independence with mobility. (Initiated) Start: 05/24/25 Expected End: 06/21/25 Patient will ascend and descend 8 stairs with one railing and modified independence in order to safely negotiate home. (Not Addressed) Start: 05/24/25 Expected End: 06/21/25 Transfers Patient will perform bed mobility with independence in order to improve independence and prepare for out of bed mobility. (Not Addressed) Start: 05/24/25 Expected End: 06/21/25 Patient will complete sit to stand transfer with independence to none in order to improve safety and prepare for out of bed mobility. (Not Progressing) Start: 05/24/25 Expected End: 06/21/25 Therapy Time Individual Co-treatment Time In 1453 Time Out 1517 Minutes 24 Timed Code Treatment Minutes: 24 Minutes (Gait, FA) Rosemary Ruiz Cosigned by Abril Bianchi, PT at 05/28/2025 3:40 PM EDT Hospitalist Progress Note 05/28/2025 Subjective: Admit Date: 05/23/2025 PCP: Charlene Walker MD Room#: W3-325/W3-325 B Interval History: Denies chest pain shortness breath abdominal pain nausea vomiting diarrhea lightheadedness dizziness syncope. Scheduled for surgery on May 29 with vascular surgery Adult diet Regular; Low Fat/Low Chol/High Fiber/KRYSTLE NPO diet with enteral medications 24HR INTAKE/OUTPUT: No intake or output data in the 24 hours ending 05/28/25 1025 Past Medical History: Medical History[1] LABS: CBC: No results for input(s): "WBC", "RBC", "HGB", "HCT", "MCV", "RDW", "PLT" in the last 72 hours. BMP: No results for input(s): "NA", "K", "CL", "CO2", "BUN", "CREATININE", "GLUCOSE", "CALCIUM", "ANIONGAP" in the last 72 hours. LIVER PROFILE: No results for input(s): "AST", "ALT", "BILITOT", "ALKPHOS", "PROT" in the last 72 hours. No lab exists for component: LABALBU PT/INR: No results for input(s): "PROTIME", "INR" in the last 72 hours. CARDIAC ENZYMES: No results for input(s): "TROPONINI" in the last 72 hours. Procalcitonin: No results found for: PROCAL COVID-19 PCR: No results for input(s): "COVID19" in the last 72 hours. Objective: Vitals: BP (!) 167/66 (BP Location: Left arm, Patient Position: Lying) Pulse 50 Temp 36 C (96.8 F) (Temporal) Resp 18 Ht 5' 2.01" (1.575 m) Wt 185 lb (83.9 kg) SpO2 92% BMI 33.83 kg/m Pulse Ox: SpO2 Av.6 % Min: 92 % Max: 95 % Supplemental O2: O2 Flow Rate (L/min): 2 L/min Physical Exam HENT: Head: Normocephalic and atraumatic. Cardiovascular: Rate and Rhythm: Normal rate and regular rhythm. Pulmonary: Effort: Pulmonary effort is normal. No respiratory distress. Abdominal: General: Bowel sounds are normal. Palpations: Abdomen is soft. Tenderness: There is no abdominal tenderness. Neurological: Mental Status: She is alert and oriented to person, place, and time. Medications: Scheduled PRN Scheduled Meds[2] PRN Meds[3] Continuous Continuous Meds[4] Assessment 84-year-old female presented with right eye vision loss on May 23. CT head no acute intracranial abnormality. CT angiography of the head neck revealed bilateral 80% stenosis of the internal carotids. Additionally patient has a shaggy plaque in the aortic arch with an anterior penetrating oral ulcer. Carotid duplex showing <50% bilaterally, possible DAISHA stenosis < 60% Neurology recommends aspirin 81 mg daily Plavix 75 mg indefinitely for now. Per neurology "platelet agg studies pending for ASA and Plavix - may need to switch to DOAC if these come back abnormal " neurology signed off 05/29 PLAN FOR OR FOR carotid endarterectomy with vascular surgery Bilateral carotid artery disease Ascending aortic ulcer/atherosclerosis Vision changes Acute R CRAO/recent L CRAO suspect large vessel atheroembolism in setting of aortic arch plaque and ulcer. Hypertension CKD GERD Mood disorder Thyroid disease Continue Norvasc aspirin statin Plavix Lexapro Synthroid losartan PPI Disposition [facility] Extended Emergency Contact Information Primary Emergency Contact: Hamilton (POA)Piper Mobile Relation: Louis Jessica DO Division of Hospitalist Medicine [facility] [1] Past Medical History: Diagnosis Date Disease of thyroid gland Hypertension 01/01/2024 [2] amLODIPine, 5 mg, Oral, Daily aspirin, 81 mg, Oral, Daily Or aspirin, 300 mg, Rectal, Daily atorvastatin, 80 mg, Oral, Nightly cholecalciferol, 1,000 Units, Oral, Daily clopidogrel, 75 mg, Oral, Daily enoxaparin, 40 mg, SubCUTAneous, Daily escitalopram, 10 mg, Oral, Daily levothyroxine, 112 mcg, Oral, qAM AC losartan, 25 mg, Oral, Daily meclizine, 12.5 mg, Oral, Daily pantoprazole, 40 mg, Oral, Nightly sodium chloride 0.9%, 5-40 mL, IntraVENous, q12h [3] PRN medications: acetaminophen OR acetaminophen, bisacodyl, labetalol, ondansetron ODT OR ondansetron, polyethylene glycol (PEG) 3350, prochlorperazine OR prochlorperazine OR prochlorperazine, sodium chloride, sodium chloride 0.9% [4] Images from the original note were not included. Department of General Surgery Daily Progress Note ADMIT DATE: 05/23/2025 TODAY'S DATE: 05/28/2025 SUBJECTIVE: NAEON. Tolerating diet. Pain controlled with medications. No changes in vision- still able to see blurry outlines about a foot from her face. Vascular team spoke with patient's niece yesterday who advocated for the patient to undergo L CEA. Denies: fevers, chills, nausea, vomiting, shortness of breath or chest pain. ROS: Noted above unless otherwise mentioned OBJECTIVE: VITALS: Temp: [36 C (96.8 F)-37.1 C (98.7 F)] 36 C (96.8 F) Heart Rate: [50-66] 50 Resp: [16-18] 18 BP: (117-199)/(59-102) 167/66 INTAKE/OUTPUT: No intake or output data in the 24 hours ending 05/28/25 0758 No intake/output data recorded. No intake/output data recorded. PHYSICAL EXAM: Gen: NAD, A&Ox3, pain well controlled Heart: RRR, well perfused Lungs: symmetric chest rise, normal work of breathing, breath sounds b/l Abd: soft, non tender, non distended. Non rigid. Ext: no c/c/e no gross deformities Skin: warm, well perfused, no obvious rashes, cellulitis or gross discoloration LABS CBC: Auto WBC Date Value Ref Range Status 05/25/2025 10.7 3.6 - 10.7 10*3/uL Final 05/24/2025 14.2 (H) 3.6 - 10.7 10*3/uL Final 05/23/2025 9.8 3.6 - 10.7 10*3/uL Final Hemoglobin Date Value Ref Range Status 05/25/2025 13.5 11.7 - 16.0 g/dL Final 05/24/2025 14.7 11.7 - 16.0 g/dL Final 05/23/2025 15.7 11.7 - 16.0 g/dL Final Platelets Date Value Ref Range Status 05/25/2025 203 140 - 440 10*3/uL Final 05/24/2025 214 140 - 440 10*3/uL Final 05/23/2025 244 140 - 440 10*3/uL Final BMP: SODIUM Date Value Ref Range Status 05/25/2025 138 136 - 145 mmol/L Final 05/24/2025 138 136 - 145 mmol/L Final 05/23/2025 139 136 - 145 mmol/L Final POTASSIUM Date Value Ref Range Status 05/25/2025 3.7 3.5 - 5.1 mmol/L Final Comment: Plasma potassium values may be up to 0.5 mmol/L lower than serum values. 05/24/2025 3.5 3.5 - 5.1 mmol/L Final Comment: Plasma potassium values may be up to 0.5 mmol/L lower than serum values. 05/23/2025 3.8 3.5 - 5.1 mmol/L Final Comment: Plasma potassium values may be up to 0.5 mmol/L lower than serum values. CHLORIDE Date Value Ref Range Status 05/25/2025 107 98 - 107 mmol/L Final 05/24/2025 107 98 - 107 mmol/L Final 05/23/2025 103 98 - 107 mmol/L Final CARBON DIOXIDE Date Value Ref Range Status 05/25/2025 24 23 - 31 mmol/L Final 05/24/2025 22 (L) 23 - 31 mmol/L Final 05/23/2025 26 23 - 31 mmol/L Final UREA NITROGEN Date Value Ref Range Status 05/25/2025 14 9 - 23 mg/dL Final 05/24/2025 14 9 - 23 mg/dL Final 05/23/2025 16 9 - 23 mg/dL Final CREATININE Date Value Ref Range Status 05/25/2025 1.31 (H) 0.57 - 1.11 mg/dL Final 05/24/2025 1.18 (H) 0.57 - 1.11 mg/dL Final 05/23/2025 1.42 (H) 0.57 - 1.11 mg/dL Final Hepatic: AST (SGOT) Date Value Ref Range Status 05/25/2025 24 <34 U/L Final 05/24/2025 21 <34 U/L Final 05/23/2025 24 <34 U/L Final ALT Date Value Ref Range Status 05/25/2025 13 <30 U/L Final 05/24/2025 13 <30 U/L Final 05/23/2025 18 <30 U/L Final ALBUMIN Date Value Ref Range Status 05/25/2025 3.0 (L) 3.4 - 4.8 g/dL Final 05/24/2025 3.2 (L) 3.4 - 4.8 g/dL Final 05/23/2025 3.7 3.4 - 4.8 g/dL Final BILIRUBIN, TOTAL Date Value Ref Range Status 05/25/2025 1.0 <1.2 mg/dL Final 05/24/2025 1.2 (H) <1.2 mg/dL Final 05/23/2025 1.0 <1.2 mg/dL Final BILIRUBIN, DIRECT Date Value Ref Range Status 12/28/2023 0.0 0.0 - 0.3 mg/dL Final ALKALINE PHOSPHATASE Date Value Ref Range Status 05/25/2025 161 (H) 40 - 150 U/L Final 05/24/2025 180 (H) 40 - 150 U/L Final 05/23/2025 209 (H) 40 - 150 U/L Final Current Inpatient Medications Scheduled Meds:Scheduled Meds[1] Continuous Infusions:Continuous Meds[2] PRN Meds:PRN Meds[3] ASSESSMENT AND PLAN: 84 y.o. female with vision changes in setting of bilateral carotid artery disease and ascending aortic ulcer - Plan for OR 05/29 - Carotid duplex showing <50% bilaterally, possible DAISHA stenosis < 60% - Pain and nausea control PRN - Strict BP control - Rest of care per primary Will discuss with Dr. Vitale This note may have been dictated using [employer] Practice Edition 2.6 and/or [employer] Voice Recognition Feature. The document was proofread; however, unrecognized voice recognition nutrition aide errors may be present. [1] amLODIPine, 5 mg, Oral, Daily aspirin, 81 mg, Oral, Daily Or aspirin, 300 mg, Rectal, Daily atorvastatin, 80 mg, Oral, Nightly cholecalciferol, 1,000 Units, Oral, Daily clopidogrel, 75 mg, Oral, Daily enoxaparin, 40 mg, SubCUTAneous, Daily escitalopram, 10 mg, Oral, Daily levothyroxine, 112 mcg, Oral, qAM AC losartan, 25 mg, Oral, Daily meclizine, 12.5 mg, Oral, Daily pantoprazole, 40 mg, Oral, Nightly sodium chloride 0.9%, 5-40 mL, IntraVENous, q12h [2] [3] PRN medications: acetaminophen OR acetaminophen, bisacodyl, labetalol, ondansetron ODT OR ondansetron, polyethylene glycol (PEG) 3350, prochlorperazine OR prochlorperazine OR prochlorperazine, sodium chloride, sodium chloride 0.9% Cosigned by Janeth Vitale MD at 05/28/2025 3:52 PM EDT Associated attestation - Janeth Vitale MD - 05/28/2025 3:52 PM EDT I saw and evaluated the patient. I agree with the findings and plan of care as documented in the resident s note unless otherwise noted below. Patient doing well. No new deficits. She has no questions at this time. Plan for OR tomorrow morning for left CEA. Continue ASA. NPO at midnight. Images from the original note were not included. PHYSICAL THERAPY [facility] Treatment Note Name/MRN: Diana Kohli ([id number]) Date of : 1940 Age: 84 y.o. Room/Bed: W3325/W3-325 B Discharge Recommendation: Longterm Facility Other: TBD Assessment Pt demonstrated supine to sitting EOB using min a and handheld a. Pt performed garrick LE exercises prior to ambulation. Pt required min a for sit to stand transfers from EOB using FWW and from toilet using FWW and min a for stand to sit in chair using FWW. Pt ambulated 25 x 2 ft using FWW and CGA. Limited by visual deficits, syncope, and safety awareness of IV pole. Recommend discharge to SNF. Subjective Pt found lying supine in bed. Cleared by nursing. Pt agrees to therapy Pain: Pt denies any current pain. Medical Precautions: No active isolations Proper PPE donned/doffed in accordance with facility standards. Fall Risk: Ny Fall Risk Score: 70 (Medium Risk) Ny Fall Risk Score: 70 (High Risk) Precautions/Restrictions: Lines/Drains/Airways: PIV Overall Cognitive Status: WFL Overall Orientation Status: Oriented x4 Family/Caregiver Present: none Objective Bed Mobility Supine to sit: Min Assist Use of bed rail(s) Required increased time, handheld a, and cueing Transfers/Mobility Sit to stand: Min Assist Stand to sit: Min Assist Toilet: SBA Pt required min for transfers from EOB using FWW after performing garrick LE exercies. Pt able to demonstrate sit to stand transfer from toilet using SBA with FWW. Required increased time and cueing. Device(s) used: Front wheeled walker Ambulation Ambulation 1 Assistive device(s) used: Front wheeled walker Assist level: Contact Guard Distance (ft): 25 x 2 ft Quality of gait: wide DELILAH, slow dewey, unable to see out of R eye and can only see partially through L eye due to "black spots". Pt demonstrates difficulty with obstacle negotiation on the L side due to visual impairments. Exercises Exercises Hip Flexion: garrick LE 1x 10 reps Hip Adduction: garrick LE 1x 10 reps Knee Long Arc Quad: garrick LE 1x 10 reps Ankle Pumps: garrick LE 1x 10 reps Plan Continue acute PT per plan of care. Safety/Education Safety Safety Devices in place: All fall risk precautions in place, call light within reach, left in chair, gait belt, patient at risk for falls, and no alarms engaged upon entry Restraints: No Education Education Given To: patient Education Provided: PT Role, PT Goals, Gait Training, and Benefits of Increasing Activity Education Method: Verbal Barriers to Learning: Vision Education Outcome: Verbalized Understanding Outcome Measures AM-PAC AM-PAC Inpatient Mobility Raw Score (No Stairs) : 15 JH-HLM JH-HLM Scale: Walked 10 steps or more (i.e. walked to restroom) Goals Patient Stated Goal: to go home Encounter Problems Encounter Problems (Active) Balance Patient will maintain dynamic standing balance for 2 minutes with modified independence in order to demonstrate decreased risk of falling. (Not Addressed) Start: 05/24/25 Expected End: 06/21/25 Balance Patient will maintain static standing balance for 3 minutes with modified independence in order to demonstrate decreased risk of falling. (Initiated) Start: 05/24/25 Expected End: 06/21/25 Mobility Patient will ambulate 50 feet with modified independence and rolling walker in order to improve safety and independence with mobility. (Not Progressing) Start: 05/24/25 Expected End: 06/21/25 Patient will ascend and descend 8 stairs with one railing and modified independence in order to safely negotiate home. (Not Addressed) Start: 05/24/25 Expected End: 06/21/25 Transfers Patient will perform bed mobility with independence in order to improve independence and prepare for out of bed mobility. (Not Progressing) Start: 05/24/25 Expected End: 06/21/25 Patient will complete sit to stand transfer with independence to none in order to improve safety and prepare for out of bed mobility. (Not Progressing) Start: 05/24/25 Expected End: 06/21/25 Therapy Time Individual Co-treatment Time In 1104 Time Out 1138 Minutes 34 Timed Code Treatment Minutes: 34 Minutes (FA, gait) Rosemary Ruiz Cosigned by Abril Bianchi, PT at 05/27/2025 4:07 PM EDT Hospitalist Progress Note 05/27/2025 Subjective: Admit Date: 05/23/2025 PCP: Charlene Walker MD Room#: W3-325/W3-325 B Interval History: No acute events reported overnight blood pressure has improved today. On room air. No fever. Adult diet Regular; Low Fat/Low Chol/High Fiber/KRYSTLE 24HR INTAKE/OUTPUT: No intake or output data in the 24 hours ending 05/27/25 0945 Past Medical History: Medical History[1] LABS: CBC: Recent Labs 05/25/25 0508 WBC 10.7 RBC 4.34 HGB 13.5 HCT 40.7 MCV 93.8 RDW 13.0 PLT 203 BMP: Recent Labs 05/25/25 0508 NA 138 K 3.7 CL 107 CO2 24 BUN 14 CREATININE 1.31* GLUCOSE 108 CALCIUM 8.9 ANIONGAP 7 LIVER PROFILE: Recent Labs 05/25/25 0508 AST 24 ALT 13 BILITOT 1.0 ALKPHOS 161* PROT 6.0* PT/INR: No results for input(s): "PROTIME", "INR" in the last 72 hours. CARDIAC ENZYMES: No results for input(s): "TROPONINI" in the last 72 hours. Procalcitonin: No results found for: PROCAL COVID-19 PCR: No results for input(s): "COVID19" in the last 72 hours. Objective: Vitals: BP 148/70 (BP Location: Right arm, Patient Position: Lying) Pulse 60 Temp 36.4 C (97.5 F) (Temporal) Resp 17 Ht 5' 2.01" (1.575 m) Wt 185 lb (83.9 kg) SpO2 90% BMI 33.83 kg/m Pulse Ox: SpO2 Av.5 % Min: 90 % Max: 98 % Supplemental O2: O2 Flow Rate (L/min): 2 L/min Physical Exam HENT: Head: Normocephalic and atraumatic. Cardiovascular: Rate and Rhythm: Normal rate and regular rhythm. Pulmonary: Effort: Pulmonary effort is normal. No respiratory distress. Abdominal: General: Bowel sounds are normal. Palpations: Abdomen is soft. Tenderness: There is no abdominal tenderness. Neurological: Mental Status: She is alert and oriented to person, place, and time. Medications: Scheduled PRN Scheduled Meds[2] PRN Meds[3] Continuous Continuous Meds[4] Assessment 84-year-old female presented with right eye vision loss on May 23. CT head no acute intracranial abnormality. CT angiography of the head neck revealed bilateral 80% stenosis of the internal carotids. Additionally patient has a shaggy plaque in the aortic arch with an anterior penetrating oral ulcer. Carotid duplex showing <50% bilaterally, possible DAISHA stenosis < 60% Vascular surgery following, vascular surgery to discuss prospect of surgery with patient's niece. Neurology recommends aspirin 81 mg daily Plavix 75 mg indefinitely for now. Per neurology "platelet agg studies pending for ASA and Plavix - may need to switch to DOAC if these come back abnormal " neurology signed off Bilateral carotid artery disease Ascending aortic ulcer/atherosclerosis Vision changes Acute R CRAO/recent L CRAO suspect large vessel atheroembolism in setting of aortic arch plaque and ulcer. Hypertension CKD GERD Mood disorder Thyroid disease Continue Norvasc aspirin statin Plavix Lexapro Synthroid losartan PPI Disposition [facility] Extended Emergency Contact Information Primary Emergency Contact: Piper Hamilton (POA) Mobile Relation: Louis Iris Jessica DO Division of Hospitalist Medicine [facility] [1] Past Medical History: Diagnosis Date Disease of thyroid gland Hypertension 01/01/2024 [2] amLODIPine, 5 mg, Oral, Daily aspirin, 81 mg, Oral, Daily Or aspirin, 300 mg, Rectal, Daily atorvastatin, 80 mg, Oral, Nightly cholecalciferol, 1,000 Units, Oral, Daily clopidogrel, 75 mg, Oral, Daily enoxaparin, 40 mg, SubCUTAneous, Daily escitalopram, 10 mg, Oral, Daily levothyroxine, 112 mcg, Oral, qAM AC losartan, 25 mg, Oral, Daily meclizine, 12.5 mg, Oral, Daily pantoprazole, 40 mg, Oral, Nightly Or pantoprazole (ProtoNix) 40 mg in sodium chloride (PF) 0.9 % 10 mL injection, 40 mg, IntraVENous, Nightly sodium chloride 0.9%, 5-40 mL, IntraVENous, q12h [3] PRN medications: acetaminophen OR acetaminophen, bisacodyl, labetalol, ondansetron ODT OR ondansetron, polyethylene glycol (PEG) 3350, prochlorperazine OR prochlorperazine OR prochlorperazine, sodium chloride, sodium chloride 0.9% [4] sodium chloride, 50 mL/hr, Last Rate: 50 mL/hr (05/26/25 1506) Images from the original note were not included. Department of General Surgery Daily Progress Note ADMIT DATE: 05/23/2025 TODAY'S DATE: 05/27/2025 SUBJECTIVE: NAEON. Tolerating diet. Pain controlled with medications. No changes in vision- still able to see blurry outlines about a foot from her face. Patient has not yet spoken with her niece about the prospect of surgery. She would like the vascular team to talk to her niece for her. Denies: fevers, chills, nausea, vomiting, shortness of breath or chest pain. ROS: Noted above unless otherwise mentioned OBJECTIVE: VITALS: Temp: [36.1 C (96.9 F)-36.4 C (97.5 F)] 36.4 C (97.5 F) Heart Rate: [58-66] 60 Resp: [16-18] 17 BP: (128-199)/(65-105) 148/70 INTAKE/OUTPUT: No intake or output data in the 24 hours ending 05/27/25 0654 No intake/output data recorded. No intake/output data recorded. PHYSICAL EXAM: Gen: NAD, A&Ox3, pain well controlled Heart: RRR, well perfused Lungs: symmetric chest rise, normal work of breathing, breath sounds b/l Abd: soft, non tender, non distended. Non rigid. Ext: no c/c/e no gross deformities Skin: warm, well perfused, no obvious rashes, cellulitis or gross discoloration LABS CBC: Auto WBC Date Value Ref Range Status 05/25/2025 10.7 3.6 - 10.7 10*3/uL Final 05/24/2025 14.2 (H) 3.6 - 10.7 10*3/uL Final 05/23/2025 9.8 3.6 - 10.7 10*3/uL Final Hemoglobin Date Value Ref Range Status 05/25/2025 13.5 11.7 - 16.0 g/dL Final 05/24/2025 14.7 11.7 - 16.0 g/dL Final 05/23/2025 15.7 11.7 - 16.0 g/dL Final Platelets Date Value Ref Range Status 05/25/2025 203 140 - 440 10*3/uL Final 05/24/2025 214 140 - 440 10*3/uL Final 05/23/2025 244 140 - 440 10*3/uL Final BMP: SODIUM Date Value Ref Range Status 05/25/2025 138 136 - 145 mmol/L Final 05/24/2025 138 136 - 145 mmol/L Final 05/23/2025 139 136 - 145 mmol/L Final POTASSIUM Date Value Ref Range Status 05/25/2025 3.7 3.5 - 5.1 mmol/L Final Comment: Plasma potassium values may be up to 0.5 mmol/L lower than serum values. 05/24/2025 3.5 3.5 - 5.1 mmol/L Final Comment: Plasma potassium values may be up to 0.5 mmol/L lower than serum values. 05/23/2025 3.8 3.5 - 5.1 mmol/L Final Comment: Plasma potassium values may be up to 0.5 mmol/L lower than serum values. CHLORIDE Date Value Ref Range Status 05/25/2025 107 98 - 107 mmol/L Final 05/24/2025 107 98 - 107 mmol/L Final 05/23/2025 103 98 - 107 mmol/L Final CARBON DIOXIDE Date Value Ref Range Status 05/25/2025 24 23 - 31 mmol/L Final 05/24/2025 22 (L) 23 - 31 mmol/L Final 05/23/2025 26 23 - 31 mmol/L Final UREA NITROGEN Date Value Ref Range Status 05/25/2025 14 9 - 23 mg/dL Final 05/24/2025 14 9 - 23 mg/dL Final 05/23/2025 16 9 - 23 mg/dL Final CREATININE Date Value Ref Range Status 05/25/2025 1.31 (H) 0.57 - 1.11 mg/dL Final 05/24/2025 1.18 (H) 0.57 - 1.11 mg/dL Final 05/23/2025 1.42 (H) 0.57 - 1.11 mg/dL Final Hepatic: AST (SGOT) Date Value Ref Range Status 05/25/2025 24 <34 U/L Final 05/24/2025 21 <34 U/L Final 05/23/2025 24 <34 U/L Final ALT Date Value Ref Range Status 05/25/2025 13 <30 U/L Final 05/24/2025 13 <30 U/L Final 05/23/2025 18 <30 U/L Final ALBUMIN Date Value Ref Range Status 05/25/2025 3.0 (L) 3.4 - 4.8 g/dL Final 05/24/2025 3.2 (L) 3.4 - 4.8 g/dL Final 05/23/2025 3.7 3.4 - 4.8 g/dL Final BILIRUBIN, TOTAL Date Value Ref Range Status 05/25/2025 1.0 <1.2 mg/dL Final 05/24/2025 1.2 (H) <1.2 mg/dL Final 05/23/2025 1.0 <1.2 mg/dL Final BILIRUBIN, DIRECT Date Value Ref Range Status 12/28/2023 0.0 0.0 - 0.3 mg/dL Final ALKALINE PHOSPHATASE Date Value Ref Range Status 05/25/2025 161 (H) 40 - 150 U/L Final 05/24/2025 180 (H) 40 - 150 U/L Final 05/23/2025 209 (H) 40 - 150 U/L Final Current Inpatient Medications Scheduled Meds:Scheduled Meds[1] Continuous Infusions:Continuous Meds[2] PRN Meds:PRN Meds[3] ASSESSMENT AND PLAN: 84 y.o. female with vision changes in setting of bilateral carotid artery disease and ascending aortic ulcer - Will discuss prospect of surgery with patient's niece - Carotid duplex showing <50% bilaterally, possible DAISHA stenosis < 60% - Pain and nausea control PRN - Strict BP control - Rest of care per primary Will discuss with Dr. Vitale This note may have been dictated using [employer] Medical Practice Edition 2.6 and/or [employer] Voice Recognition Feature. The document was proofread; however, unrecognized voice recognition nutrition aide errors may be present. [1] amLODIPine, 5 mg, Oral, Daily aspirin, 81 mg, Oral, Daily Or aspirin, 300 mg, Rectal, Daily atorvastatin, 80 mg, Oral, Nightly cholecalciferol, 1,000 Units, Oral, Daily clopidogrel, 75 mg, Oral, Daily enoxaparin, 40 mg, SubCUTAneous, Daily escitalopram, 10 mg, Oral, Daily levothyroxine, 112 mcg, Oral, qAM AC losartan, 25 mg, Oral, Daily meclizine, 12.5 mg, Oral, Daily pantoprazole, 40 mg, Oral, Nightly Or pantoprazole (ProtoNix) 40 mg in sodium chloride (PF) 0.9 % 10 mL injection, 40 mg, IntraVENous, Nightly sodium chloride 0.9%, 5-40 mL, IntraVENous, q12h [2] sodium chloride, 50 mL/hr, Last Rate: 50 mL/hr (05/26/25 1506) [3] PRN medications: acetaminophen OR acetaminophen, bisacodyl, labetalol, ondansetron ODT OR ondansetron, polyethylene glycol (PEG) 3350, prochlorperazine OR prochlorperazine OR prochlorperazine, sodium chloride, sodium chloride 0.9% Cosigned by Janeth Vitale MD at 05/27/2025 5:07 PM EDT Associated attestation - Janeth Vitale MD - 05/27/2025 5:07 PM EDT I saw and evaluated the patient. I agree with the findings and plan of care as documented in the resident s note unless otherwise noted below. I had a long discussion with the patient and her niece Martha today. We discussed and reviewed the imaging that we done during her workup including the CTA neck as well as the carotid duplex. We discussed the options of medical management vs intervention as well as the surgical options. We discussed that without intervention she may be at risk of new CVA however it is unclear if this is related to her aortic plaque vs carotid vs both. We discussed that intervention will not change her vision loss but be an attempt to prevent future episodes. After out discussion, the patient would like to proceed with surgery. We discussed the risks of carotid endarterectomy including the risks of bleeding, infection, nerve damage and damage to surrounding structures, stroke, and cardiac event. She and Martha have expressed understanding. Continue ASA. Plan for OR . Low Risk Nutrition Note Nutrition Assessment: Pt is consuming and tolerating PO w/o difficulty, consuming meals at baseline. Pt does not consume ONS GLOBE CHANGER, and is meeting nutrition needs via meals during admission. Pt w/ stable wt compared to Epic hx; pt denies wt change. Labs and skin reviewed. No further nutrition concern at this time. RD available upon request. DT will continue to follow. Reason for Visit: Initial, Positive Nutrition Screen Current Nutrition Therapies: Adult diet Regular; Low Fat/Low Chol/High Fiber/KRYSTLE Diagnosis: No nutrition diagnosis at this time. Monitoring and Evaluation: Patient will be monitored per nutrition standards of care. Consult Dietitian if nutrition intervention essential to patient care is needed. Discharge Planning: No needs Contact: [phone] Images from the original note were not included. PHYSICAL THERAPY [facility] Treatment Note Name/MRN: Diana Kohli ([id number]) Date of : 1940 Age: 84 y.o. Room[facility]Bed: [facility] Discharge Recommendation: Longterm Facility Other: TBD Assessment Decreased step length, step height. Decreased vision. Does best with FWW use. Incontinent stool, necessary toilet use. Aide notified. Rec skilled PT Subjective Agree to PT. States she can see objects, shadows with left eye. Pain: Pt denies any current pain. Medical Precautions: No active isolations Proper PPE donned/doffed in accordance with facility standards. Fall Risk: Ny Fall Risk Score: 85 (Medium Risk) Ny Fall Risk Score: 85 (High Risk) Precautions/Restrictions: Lines/Drains/Airways: PIV, Overall Cognitive Status: WFL Overall Orientation Status: Oriented x4 Family/Caregiver Present: none Objective Transfers/Mobility Sit to stand: Supervision Stand to sit: Supervision Varied surface height, grab bar toilet Ambulation Ambulation 1 Assistive device(s) used: IV pole Assist level: Min Assist Distance (ft): 20'x2 Quality of gait: B foot clearance, shuffling, uneven step length, narrow DELILAH, slow dewey, path deviations Ambulation 2 Assistive device(s) used: Front wheeled walker Assist level: Min Assist Distance (ft): 25'x2 Quality of gait: B foot clearance, shuffling, uneven step length, narrow DELILAH, slow dewey Balance: stance unilat UE support min assist, educated hip/knee extension Plan Continue acute PT per plan of care. Safety/Education Safety Safety Devices in place: call light within reach and aide notified (toilet use) Restraints: No Education Call light, transfers, DME Outcome Measures AM-PAC AM-PAC Inpatient Mobility Raw Score (No Stairs) : 15 JH-HLM JH-HLM Score: Walked 25 ft or more (i.e. walked outside of room) Goals Patient Stated Goal: Patient unable to participate in goal setting at this time. Encounter Problems Encounter Problems (Active) Balance Patient will maintain dynamic standing balance for 2 minutes with modified independence in order to demonstrate decreased risk of falling. (Progressing) Start: 05/24/25 Expected End: 06/21/25 Balance Patient will maintain static standing balance for 3 minutes with modified independence in order to demonstrate decreased risk of falling. (Progressing) Start: 05/24/25 Expected End: 06/21/25 Mobility Patient will ambulate 50 feet with modified independence and rolling walker in order to improve safety and independence with mobility. (Progressing) Start: 05/24/25 Expected End: 06/21/25 Patient will ascend and descend 8 stairs with one railing and modified independence in order to safely negotiate home. (Not Addressed) Start: 05/24/25 Expected End: 06/21/25 Transfers Patient will perform bed mobility with independence in order to improve independence and prepare for out of bed mobility. (Not Addressed) Start: 05/24/25 Expected End: 06/21/25 Patient will complete sit to stand transfer with independence to none in order to improve safety and prepare for out of bed mobility. (Progressing) Start: 05/24/25 Expected End: 06/21/25 Therapy Time Individual Co-treatment Time In 1530 Time Out 1548 Minutes 18 Timed Code Treatment Minutes: (gt) Ivy Simmons PTA Cosigned by Abril Bianchi, PT at 05/27/2025 8:15 AM EDT Patient declines smoking cessation counseling. She is accepting of handout with contact information for future reference. Images from the original note were not included. Department of General Surgery Daily Progress Note ADMIT DATE: 05/23/2025 TODAY'S DATE: 05/26/2025 SUBJECTIVE: NAEON. Tolerating diet. Pain controlled with medications. No changes in vision- still able to see blurry outlines about a foot from her face. Denies: fevers, chills, nausea, vomiting, shortness of breath or chest pain. ROS: Noted above unless otherwise mentioned OBJECTIVE: VITALS: Temp: [36.1 C (97 F)-36.6 C (97.8 F)] 36.6 C (97.8 F) Heart Rate: [52-76] 62 Resp: [16-18] 16 BP: (137-193)/(64-100) 165/69 INTAKE/OUTPUT: No intake or output data in the 24 hours ending 05/26/25 0811 No intake/output data recorded. No intake/output data recorded. PHYSICAL EXAM: Gen: NAD, A&Ox3, pain well controlled Eyes: limited vision in R eye Heart: RRR, well perfused Lungs: symmetric chest rise, normal work of breathing, breath sounds b/l Abd: soft, non tender, non distended. Non rigid. Ext: no c/c/e no gross deformities Skin: warm, well perfused, no obvious rashes, cellulitis or gross discoloration LABS CBC: Auto WBC Date Value Ref Range Status 05/25/2025 10.7 3.6 - 10.7 10*3/uL Final 05/24/2025 14.2 (H) 3.6 - 10.7 10*3/uL Final 05/23/2025 9.8 3.6 - 10.7 10*3/uL Final Hemoglobin Date Value Ref Range Status 05/25/2025 13.5 11.7 - 16.0 g/dL Final 05/24/2025 14.7 11.7 - 16.0 g/dL Final 05/23/2025 15.7 11.7 - 16.0 g/dL Final Platelets Date Value Ref Range Status 05/25/2025 203 140 - 440 10*3/uL Final 05/24/2025 214 140 - 440 10*3/uL Final 05/23/2025 244 140 - 440 10*3/uL Final BMP: SODIUM Date Value Ref Range Status 05/25/2025 138 136 - 145 mmol/L Final 05/24/2025 138 136 - 145 mmol/L Final 05/23/2025 139 136 - 145 mmol/L Final POTASSIUM Date Value Ref Range Status 05/25/2025 3.7 3.5 - 5.1 mmol/L Final Comment: Plasma potassium values may be up to 0.5 mmol/L lower than serum values. 05/24/2025 3.5 3.5 - 5.1 mmol/L Final Comment: Plasma potassium values may be up to 0.5 mmol/L lower than serum values. 05/23/2025 3.8 3.5 - 5.1 mmol/L Final Comment: Plasma potassium values may be up to 0.5 mmol/L lower than serum values. CHLORIDE Date Value Ref Range Status 05/25/2025 107 98 - 107 mmol/L Final 05/24/2025 107 98 - 107 mmol/L Final 05/23/2025 103 98 - 107 mmol/L Final CARBON DIOXIDE Date Value Ref Range Status 05/25/2025 24 23 - 31 mmol/L Final 05/24/2025 22 (L) 23 - 31 mmol/L Final 05/23/2025 26 23 - 31 mmol/L Final UREA NITROGEN Date Value Ref Range Status 05/25/2025 14 9 - 23 mg/dL Final 05/24/2025 14 9 - 23 mg/dL Final 05/23/2025 16 9 - 23 mg/dL Final CREATININE Date Value Ref Range Status 05/25/2025 1.31 (H) 0.57 - 1.11 mg/dL Final 05/24/2025 1.18 (H) 0.57 - 1.11 mg/dL Final 05/23/2025 1.42 (H) 0.57 - 1.11 mg/dL Final Hepatic: AST (SGOT) Date Value Ref Range Status 05/25/2025 24 <34 U/L Final 05/24/2025 21 <34 U/L Final 05/23/2025 24 <34 U/L Final ALT Date Value Ref Range Status 05/25/2025 13 <30 U/L Final 05/24/2025 13 <30 U/L Final 05/23/2025 18 <30 U/L Final ALBUMIN Date Value Ref Range Status 05/25/2025 3.0 (L) 3.4 - 4.8 g/dL Final 05/24/2025 3.2 (L) 3.4 - 4.8 g/dL Final 05/23/2025 3.7 3.4 - 4.8 g/dL Final BILIRUBIN, TOTAL Date Value Ref Range Status 05/25/2025 1.0 <1.2 mg/dL Final 05/24/2025 1.2 (H) <1.2 mg/dL Final 05/23/2025 1.0 <1.2 mg/dL Final BILIRUBIN, DIRECT Date Value Ref Range Status 12/28/2023 0.0 0.0 - 0.3 mg/dL Final ALKALINE PHOSPHATASE Date Value Ref Range Status 05/25/2025 161 (H) 40 - 150 U/L Final 05/24/2025 180 (H) 40 - 150 U/L Final 05/23/2025 209 (H) 40 - 150 U/L Final Current Inpatient Medications Scheduled Meds:Scheduled Meds[1] Continuous Infusions:Continuous Meds[2] PRN Meds:PRN Meds[3] ASSESSMENT AND PLAN: 84 y.o. female with vision changes in setting of bilateral carotid artery disease and ascending aortic ulcer - No acute vascular intervention - Carotid duplex showing <50% bilaterally, possible DAISHA stenosis < 60% - Pain and nausea control PRN - Strict BP control - Rest of care per primary Will discuss with Dr. Iam Mario MD General Surgery PGY-3 05/26/25 8:11 AM Pager # [phone] This note may have been dictated using [employer] Practice Edition 2.6 and/or Peach Voice Recognition Feature. The document was proofread; however, unrecognized voice recognition nutrition aide errors may be present. [1] amLODIPine, 5 mg, Oral, Daily aspirin, 81 mg, Oral, Daily Or aspirin, 300 mg, Rectal, Daily atorvastatin, 40 mg, Oral, Nightly cholecalciferol, 1,000 Units, Oral, Daily clopidogrel, 75 mg, Oral, Daily enoxaparin, 40 mg, SubCUTAneous, Daily escitalopram, 10 mg, Oral, Daily levothyroxine, 112 mcg, Oral, qAM AC losartan, 25 mg, Oral, Daily meclizine, 12.5 mg, Oral, Daily pantoprazole, 40 mg, Oral, Nightly Or pantoprazole (ProtoNix) 40 mg in sodium chloride (PF) 0.9 % 10 mL injection, 40 mg, IntraVENous, Nightly sodium chloride 0.9%, 5-40 mL, IntraVENous, q12h [2] sodium chloride, 50 mL/hr, Last Rate: 50 mL/hr (05/25/25 09) [3] PRN medications: acetaminophen OR acetaminophen, bisacodyl, labetalol, ondansetron ODT OR ondansetron, polyethylene glycol (PEG) 3350, prochlorperazine OR prochlorperazine OR prochlorperazine, sodium chloride, sodium chloride 0.9% Cosigned by Janeth Vitale MD at 05/26/2025 4:46 PM EDT Associated attestation - Janeth Vitale MD - 05/26/2025 4:46 PM EDT I saw and evaluated the patient. I agree with the findings and plan of care as documented in the resident s note unless otherwise noted below. After review of both the previous CTA neck, most recent CTA neck, and carotid duplex, I do not feel the right carotid artery requires intervention at this time. The left carotid artery does appear to have significant stenosis and may benefit from carotid intervention for stroke risk reduction. I discussed this with the patient, including that surgical intervention will not change her current visual deficits and this would be strictly to prevent future events. The patient has also shown to be a plavix non-responder and would benefit from Brillinta and ASA ultimately. I would not start Brillinta until the patient has decided on surgery as the surgery cannot be performed with Brillinta on board. The patient would like me to discuss this further with her niece Martha. I attempted to contact her for further discussion, however there was no answer at this time. I will try again tomorrow. Should they wish to pursue surgical intervention, this can be done on Monday morning. 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 BP >200/100's. CTH without acute process. CTA head/neck without LVO but did note bilateral carotid stenosis of 80% as well as aortic arch plaque with penetrating ulcer. CUS however with <50% bilaterally. 05/25 had syncopal event while in bathroom that resolved upon getting back into bed and IV fluids. Interval History: Feeling well. Sitting in chair eating breakfast. Martha Myers, at bedside. Vision unchanged from yesterday. Medications: Scheduled Meds: Scheduled Meds[1] PRN Meds: PRN Meds[2] Allergies: Patient has no known allergies. Review of Systems + diminished vision Physical Examination: Patient Vitals for the past 8 hrs: BP Temp Temp src Pulse Resp SpO2 05/26/25 0543 (!) 165/69 36.6 C (97.8 F) Temporal 62 16 95 % 05/26/25 0119 142/67 36.4 C (97.5 F) Temporal 61 16 96 % No intake/output data recorded. General Physical Examination: General: Awake HEENT:Normocephalic, atraumaticl CV: S1+S2, RRR, no MRG. Pulm:CTA b/l, unlabored Abdomen: Soft NT/ND. BS + Skin: Intact without ulcers, breakdowns or discoloration Extremities: normal with no edema or cyanosis Orthopedic limitation; No Pulses: Intact peripherally Carotid auscultation :No bruits Neurological Examination: Higher Functions: Mental Status Exam: Level of Alertness:Awake Orientation: Normal toself, time, place Memory: Normal Fund of Knowledge: Normal Language: Normal Dysarthria not present Cranial Nerves: -II Visual acuity: abnormal, limited due to patient unable to perform exam, can see light in L eye and some outlines of structures -II Visualfields: poor reliability due to patient level of consciousness or structural limitation -III Pupils (~ 3 mm OD, 3 mm OU) equal, round, reactive to light -III-IV- Extraocular Movements: intact -Nystagmus not present -Saccades and pursuits normal -V Facial sensation: intact Corneal's Intact bilateral -VII Facial strength:intact -VIII Hearing: sedated -IX-X - Gag reflex present -X Palate: Intubated -XI Shoulder shrug: intact -XII Tongue movement: normal MotorExamination: Tone after evaluation of 4 limbs, the following findings applied: Normal -Bulk: normal -Muscle Stretch afterevaluation of all limbs, and axial musculature the following findings applied: Drift: absent normal -Reflexes: after evaluation of 4 limbs, the following findings applied ; normal all limbs -Plantar responce: Flexor bilaterally Sensory Intact to light touch, pain / temperature, proprioception, Coordination: Arms Normal finger to nose Legs patient unable to perform test due to sedation, paralysis or limb orthopediccircumstances Tremors not present Gait abnormal, patient unable to walk due to acute circumstances / bed rest / safety concerns NIH score is 3 - no visual field cut but nearly blind, not full vision in either eye. ANCILLARY Lipids: Recent Labs 05/24/25 0314 CHOL 106 TRIG 45 HDL 46* Cardiac testing: TTE 04/2025: Left Ventricle: Left ventricle size is normal. Mildly increased wall thickness. Normal left ventricular systolic function. EF by 2D Simpsons Biplane is 55%. Normal wall motion. Right Ventricle: Right ventricle size is normal. Normal systolic function. Pericardium: Evidence of prominent epicardial fat. No pericardial effusion. No significant valvular abnormalities. Technically difficult study. Radiology/imaging personal review: CTA head/neck 05/23/25: An 80 percent stenosis at the origin of the right internal carotid artery. An 80 percent stenosis at the origin of the left internal carotid artery. Shaggy plaques in the aortic arch with an anterior penetrating aortic ulcer. MRI brain 05/24/25: 1. No acute intracranial findings. 2. Probable chronic ischemic and atrophic changes. 3. Right mastoid sinus disease. CUS 05/24/25: <50% stenosis in the right internal carotid artery by velocity criteria. Moderate plaque (proximal) in the right internal carotid artery. <50% stenosis in the left internal carotid artery. Stenosis may be underestimated due to calcific shadowing. Heterogeneous, calcific and diffuse plaque (proximal and mid) in the left internal carotid artery. There is post-stenotic turbulence to suggest more significant stenosis. Normal antegrade flow involving the right vertebral artery. Normal antegrade flow involving the left vertebral artery. ASSESSMENT / PLAN/RECOMMENDATIONS: Acute R CRAO/recent L CRAO - Suspect large vessel athero-embolism in setting of aortic arch plaque/ulcer - Continue ASA 81, Plavix 75 indefinitely for now (platelet agg studies pending for ASA and Plavix - may need to switch to DOAC if these come back abnormal) - Continue Atorvastatin - increase to 80mg - Follow up with OP neurology - PT/OT (blindness), social work consult due to concern regarding living arrangements Bilateral carotid stenosis - ~ 50% bilaterally based on carotid US - Vascular surgery consulted -- can follow OP Aortic arch ulcer/atherosclerosis - CTS consulted, high risk of mortality if surgery was recommended -- defer surgical intervention - medical management Tobacco abuse - Topmost on cessation Orthostatic hypotension - Supportive care HTN - SBP goal <160 with correction goal <130/80 to be achieved over the next 2-4 weeks JESUS on CKD - Monitor Cr Niece updated at bedside. Will sign off. Please call with questions. 35 minutes of my independent time was spent preparing to see the patient, obtaining/reviewing separately obtained history, completing an appropriate medical examination of the patient, ordering medications/tests/procedures, documenting clinical information on the EMR, and/or coordinating care. An additional 5 minutes was spent discussing assessment/plan with Dr. Goode. [1] amLODIPine, 5 mg, Oral, Daily aspirin, 81 mg, Oral, Daily Or aspirin, 300 mg, Rectal, Daily atorvastatin, 40 mg, Oral, Nightly cholecalciferol, 1,000 Units, Oral, Daily clopidogrel, 75 mg, Oral, Daily enoxaparin, 40 mg, SubCUTAneous, Daily escitalopram, 10 mg, Oral, Daily levothyroxine, 112 mcg, Oral, qAM AC losartan, 25 mg, Oral, Daily meclizine, 12.5 mg, Oral, Daily pantoprazole, 40 mg, Oral, Nightly Or pantoprazole (ProtoNix) 40 mg in sodium chloride (PF) 0.9 % 10 mL injection, 40 mg, IntraVENous, Nightly sodium chloride 0.9%, 5-40 mL, IntraVENous, q12h [2] PRN medications: acetaminophen OR acetaminophen, bisacodyl, labetalol, ondansetron ODT OR ondansetron, polyethylene glycol (PEG) 3350, prochlorperazine OR prochlorperazine OR prochlorperazine, sodium chloride, sodium chloride 0.9% Hospitalist Progress Note 05/26/2025 Subjective: Admit Date: 05/23/2025 PCP: Charlene Walker MD Room#: W3-325/W3-[facility] B BRIEF HOSPITAL COURSE: This is an 84-year-old female with past medical history of hypothyroidism, hypertension, tobacco use disorder, left eye retinal occlusion, suspected vascular dementia, carotid artery stenosis who presented on 05/23 with a chief complaint of right sided vision loss which occurred on 05/23 after waking up at about 3 AM to use the restroom she denies any other focal neurologic deficits weakness dizziness, numbness or tingling. In the ER was noted to be hypertensive at 232/112. CT head showed no acute findings, CT angiography of the head and neck showed bilateral 80% stenosis of the internal carotids with shaggy plaque in the aortic arch with anterior penetrating ulcer. Vascular surgery was consulted regarding carotid stenosis. Cardiothoracic surgery was consulted regarding ascending aortic arch ulcer. Stroke neurology was consulted regarding sudden onset vision loss. 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 Is on dual antiplatelet therapy with aspirin and Plavix. Added Losartan to BP regimen with less hemodynamic instability. Interval History: No overnight issues. Seen and examined at bedside this morning and in no distress. Has had no significant change in her vision. Has been tolerating p.o. intake well. We discussed the recommendation of going to a retirement facility. She is agreeable to this plan. She denies any chest pain, shortness of breath, abdominal pain. Case and plan discussed with patient and bedside nurse. All questions answered. Adult diet Regular; Low Fat/Low Chol/High Fiber/KRYSTLE 24HR INTAKE/OUTPUT: No intake or output data in the 24 hours ending 05/26/25 0751 Past Medical History: Medical History[1] LABS: CBC: Recent Labs 05/23/25210405/24/2531305/25/25 0508 WBC 9.8 14.2* 10.7 RBC 5.07 4.74 4.34 HGB 15.7 14.7 13.5 HCT 47.4* 43.1 40.7 MCV 93.5 90.9 93.8 RDW 13.0 13.0 13.0 PLT 244 214 203 BMP: Recent Labs 05/23/25210405/24/2531305/25/25 0508 NA 139 138 138 K 3.8 3.5 3.7 CL 103 107 107 CO2 26 22* 24 BUN 16 14 14 CREATININE 1.42* 1.18* 1.31* GLUCOSE 103 135* 108 CALCIUM 9.5 9.0 8.9 ANIONGAP 10 9 7 LIVER PROFILE: Recent Labs 05/23/25210405/24/2531305/25/25 0508 AST 24 21 24 ALT 18 13 13 BILITOT 1.0 1.2* 1.0 ALKPHOS 209* 180* 161* PROT 7.4 6.3* 6.0* PT/INR: Recent Labs 05/23/252104 PROTIME 10.2 INR 1.0 CARDIAC ENZYMES: No results for input(s): "TROPONINI" in the last 72 hours. Procalcitonin: No results found for: PROCAL COVID-19 PCR: No results for input(s): "COVID19" in the last 72 hours. Objective: Vitals: BP (!) 165/69 (BP Location: Right arm, Patient Position: Lying) Pulse 62 Temp 36.6 C (97.8 F) (Temporal) Resp 16 Ht 5' 2.01" (1.575 m) Wt 185 lb (83.9 kg) SpO2 95% BMI 33.83 kg/m Pulse Ox: SpO2 Av.8 % Min: 93 % Max: 96 % Supplemental O2: O2 Flow Rate (L/min): 2 L/min Physical Exam Constitutional: General: She is not in acute distress. Appearance: She is obese. HENT: Head: Atraumatic. Cardiovascular: Rate and Rhythm: Normal rate. Pulmonary: Effort: Pulmonary effort is normal. Abdominal: General: There is no distension. Palpations: Abdomen is soft. Tenderness: There is no abdominal tenderness. There is no guarding. Skin: General: Skin is warm. Neurological: Mental Status: She is alert. Comments: Right-sided visual field with complete blindness, she appears to have some vision in lateral visual sharma of the left. Medications: Scheduled PRN Scheduled Meds[2] PRN Meds[3] Continuous Continuous Meds[4] Assessment Data: (CAT3) Mgmt of the patient was discussed with TCC (EDWARD), who stated, in summary: Will plan for retirement facility placement, currently awaiting options (LOW: 2x CAT1 or independent historian MOD: 3x CAT1 or 1x CAT3 EXTENSIVE: 3x CAT1 and 1x CAT3) Acute, acute on chronic, unstable/uncontrolled chronic problems/diagnoses: Sudden onset right-sided visual loss 2/2 CRAO Known history of left retinal artery occlusion Ascending aortic arch ulcer Bilateral carotid artery stenosis None anion gap acidosis Hyperbilirubinemia Leukocytosis-resolved Orthostatic hypotension Stable chronic problems affecting care, new non-acute diagnoses: Uncontrolled hypertension-will continue home amlodipine 5 mg, labetalol 10 mg every 2 hours as needed for SBP greater then 160 Anxiety/depression-on Lexapro 10 mg Hypothyroidism on Synthroid 112 mcg Vitamin D deficiency-continue home vitamin D Plan As a result of the above findings & factors, the following mgmt was pursued: - Blood pressure is better controlled with losartan 25 mg and amlodipine 5 mg. Will continue and adjust as able. -Neurology, vascular surgery, cardiothoracic surgery following. Will continue DAPT. Neuro ordered plt studies, normal PRU -Orthostats +,Ordered compression stockings. -Home medications as above. - am labs, replace lytes prn - PT/OT/CM/SW - delirium precautions: increase activity, limit nighttime disturbances, and avoid anticholinergic meds, benzos, etc - DVT prophylaxis: SCDs and encourage ambulation Complexity: Acute illness or injury posing a threat to life or body function (HIGH). Risk: Admission to hospital-level care was considered or occurred (HIGH). Advance Directive: DNR-CCA Anticipated Discharge - Date - tbd - Location - tbd - Pending the following - placement Total time spent (which include face to face and non face to face encounters) : 34 minutes Extended Emergency Contact Information Primary Emergency Contact: Piper Hamilton (POA) Mobile Relation: Thuycordell Jas Flores DO Division of Hospitalist Medicine [facility] NOTE: This report was transcribed using voice recognition software. Every effort was made to ensure accuracy; however, inadvertent computerized nutrition aide errors may be present. [1] Past Medical History: Diagnosis Date Disease of thyroid gland Hypertension 01/01/2024 [2] amLODIPine, 5 mg, Oral, Daily aspirin, 81 mg, Oral, Daily Or aspirin, 300 mg, Rectal, Daily atorvastatin, 40 mg, Oral, Nightly cholecalciferol, 1,000 Units, Oral, Daily clopidogrel, 75 mg, Oral, Daily enoxaparin, 40 mg, SubCUTAneous, Daily escitalopram, 10 mg, Oral, Daily levothyroxine, 112 mcg, Oral, qAM AC losartan, 25 mg, Oral, Daily meclizine, 12.5 mg, Oral, Daily pantoprazole, 40 mg, Oral, Nightly Or pantoprazole (ProtoNix) 40 mg in sodium chloride (PF) 0.9 % 10 mL injection, 40 mg, IntraVENous, Nightly sodium chloride 0.9%, 5-40 mL, IntraVENous, q12h [3] PRN medications: acetaminophen OR acetaminophen, bisacodyl, labetalol, ondansetron ODT OR ondansetron, polyethylene glycol (PEG) 3350, prochlorperazine OR prochlorperazine OR prochlorperazine, sodium chloride, sodium chloride 0.9% [4] sodium chloride, 50 mL/hr, Last Rate: 50 mL/hr (05/25/25 0907) PROGRESS NOTE. STROKE SERVICE Patient Name:Diana Kohli Patient : 1940 Acct: [id number] Date of Admission: 05/23/2025 Room[facility]: [facility] PCP: Charlene Walker MD Patient location Telemetry Remains in the hospital awaiting plan on disposition, placement, Subjective: New Complain: This morning patient's vision is slightly improved, able to see the outline of physicians in the room at about a foot away. She denies any headache in the temporal regions currently. Large changes in systolic blood pressure noted from yesterday and overnight after 2 doses of IV labetalol. Per ophthalmology note yesterday, funduscopic exam was classic for acute retinal artery occlusion. Vascular surgery awaiting carotid artery ultrasound for further decision making. CTS consulted for aortic root ulcer contribution to occlusions. 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 Primary to address social concerns and disposition. Current Hospital Medications: Current Medications[1] Continuous Infusions: Continuous Meds[2] Allergies: Patient has no known allergies. ROS: As described above Objective: Physical Examination: Patient Vitals for the past 8 hrs: BP Pulse Resp SpO2 05/25/25 0905 (!) 185/85 71 -- -- 05/25/25 0900 137/70 74 -- -- 05/25/25 0857 155/75 76 -- -- 05/25/25 0855 (!) 193/85 73 -- -- 05/25/25 0653 -- 65 -- 92 % 05/25/25 0421 (!) 164/72 66 16 -- 05/25/25 0411 99/72 69 -- -- I/O last 3 completed shifts: In: 365.8 (4.4 mL/kg) [I.V.:115.8 (1.4 mL/kg); IV Piggyback:250] Out: 101 (1.2 mL/kg) [Emesis/NG output:100; Stool:1] Weight: 83.9 kg General Physical Examination: General: Awake, pleasant, in no acute distress HEENT:Normocephalic, atraumaticl, improved vision today, patient able to see provider outline from about a foot away CV: S1+S2, RRR, no MRG. Pulm:CTA b/l, unlabored Abdomen: Soft NT/ND. BS + Skin: Intact without ulcers, breakdowns or discoloration Extremities: normal with no edema or cyanosis Orthopedic limitation; N/A Pulses: Intact peripherally Carotid auscultation :bruit bilaterally Neurological Examination: Higher Functions: Mental Status Exam: Level of Alertness:Awake Orientation: Normal toself, time, place, but took some mental effort to answer correctly Memory: Abnormal Fund of Knowledge: Normal Language: Normal Dysarthria not present Cranial Nerves: -II Visual acuity: Very poor, patient minimally able to see though improved today, can make out outlines of a person from about a foot away -II Visualfields: Could not be tested -III Pupils (~ 1.5 mm OD, 1.5 mm OU) equal, round, reactive to light -III-IV- Extraocular Movements: Not tracking -Nystagmus not tracking -Saccades and pursuits not tracking -V Facial sensation: intact -VII Facial strength:intact -VIII Hearing: Abnormal, mildly hard of hearing, baseline -IX-X - Gag reflex not tested -X Palate: intact -XI Shoulder shrug: Intact -XII Tongue movement: normal MotorExamination: Tone after evaluation of 4 limbs, the following findings applied: Normal . -Bulk: generalized atrophy due to malnourishment and deconditioning -Muscle Stretch afterevaluation of all limbs, and axial musculature the following findings applied: Drift: absent -Reflexes: after evaluation of 4 limbs, the following findings applied ; normal all limbs Sensory Intact to light touch, pain / temperature, proprioception, Coordination: Arms Could not perform ycptaf-no-tcst 2/2 vision Legs Intact heel knee butler testing Tremors not present Gait Not observed NIHSS: 3 ANCILLARY Last 24hrs Recent Results (from the past 24 hours) Vascular US carotid artery duplex bilateral Collection Time: 05/24/25 1:11 PM Result Value Ref Range Right CCA prox PSV 57.4 cm/s Right CCA prox EDV 11.0 cm/s Right CCA mid PSV 47.00 cm/s Right CCA mid EDV 9.30 cm/s Right cca dist PSV 43.2 cm/s Right CCA dist EDV 11.2 cm/s Right ECA PSV 144.9 cm/s Right ECA EDV 21.40 cm/s Right ICA prox PSV 90.8 cm/s Right ICA prox EDV 18.5 cm/s Right ICA mid PSV 45.7 cm/s Right ICA mid EDV 10.3 cm/s Right ICA dist PSV 39.7 cm/s Right ICA dist EDV 8.6 cm/s Right vertebral PSV 44.9 cm/s Right vertebral EDV 16.40 cm/s Right subclavian mid PSV 103.2 cm/s Right subclavian mid EDV 5.3 cm/s Left CCA prox PSV 61.4 cm/s Left CCA prox EDV 15.3 cm/s Left CCA mid PSV 46.70 cm/s Left CCA mid EDV 10.60 cm/s Left CCA dist PSV 51.0 cm/s Left CCA dist EDV 12.9 cm/s Left ECA PSV 89.3 cm/s Left ECA EDV 17.00 cm/s Left ICA prox PSV 141.7 cm/s Left ICA prox EDV 33.2 cm/s Left ICA dist PSV 69.0 cm/s Left ICA dist EDV 4.7 cm/s Left vertebral PSV 42.9 cm/s Left vertebral EDV 7.90 cm/s Left subclavian mid PSV 76.4 cm/s Left subclavian mid EDV 2.6 cm/s Right ICA/CCA PSV 1.93 Left ICA/CCA PSV 3.03 Left ICA mid PSV 56.8 cm/s Left ICA mid EDV 11.5 cm/s CBC auto differential Collection Time: 05/25/25 5:08 AM Result Value Ref Range Auto WBC 10.7 3.6 - 10.7 10*3/uL RBC 4.34 3.80 - 5.20 10*6/uL Hemoglobin 13.5 11.7 - 16.0 g/dL Hematocrit 40.7 35.0 - 47.0 % MCV 93.8 77.0 - 99.0 fL MCH 31.1 26.0 - 34.0 pg MCHC 33.2 30.5 - 36.0 % RDW 13.0 11.5 - 15.0 % Platelets 203 140 - 440 10*3/uL MPV 9.7 9.0 - 12.7 fL nRBC 0.0 0.0 - 2.0 /100 WBCs Neutrophils Relative 77.6 38.0 - 82.0 % Lymphocytes Relative 12.3 (L) 15.0 - 45.0 % Monocytes Relative 7.8 5.0 - 13.0 % Eosinophils Relative 1.5 0.0 - 6.0 % Basophils Relative 0.4 0.0 - 2.0 % Immature Grans % 0.4 0.0 - 2.0 % Neutrophils Absolute 8.3 (H) 1.8 - 7.5 10*3/uL Lymphocytes Absolute 1.3 1.0 - 4.3 10*3/uL Monocytes Absolute 0.8 0.0 - 0.9 10*3/uL Eosinophils Absolute 0.2 0.0 - 0.5 10*3/uL Basophils Absolute 0.0 0.0 - 0.2 10*3/uL Immature Grans Absolute 0.0 <0.1 10*3/uL Comprehensive metabolic panel Collection Time: 05/25/25 5:08 AM Result Value Ref Range SODIUM 138 136 - 145 mmol/L POTASSIUM 3.7 3.5 - 5.1 mmol/L CHLORIDE 107 98 - 107 mmol/L CARBON DIOXIDE 24 23 - 31 mmol/L ANION GAP 7 3 - 13 mmol/L UREA NITROGEN 14 9 - 23 mg/dL CREATININE 1.31 (H) 0.57 - 1.11 mg/dL GLUCOSE 108 82 - 115 mg/dL CALCIUM 8.9 8.8 - 10.0 mg/dL AST (SGOT) 24 <34 U/L ALT 13 <30 U/L ALKALINE PHOSPHATASE 161 (H) 40 - 150 U/L ALBUMIN 3.0 (L) 3.4 - 4.8 g/dL BILIRUBIN, TOTAL 1.0 <1.2 mg/dL TOTAL PROTEIN 6.0 (L) 6.4 - 8.3 g/dL eGFR 40.8 (L) >60.0 mL/min/1.73m*2 Sedimentation rate, automated Collection Time: 05/25/25 5:08 AM Result Value Ref Range Sed Rate 17 0 - 20 mm/hr C-reactive protein Collection Time: 05/25/25 5:08 AM Result Value Ref Range C REACTIVE PROTEIN 16.9 (H) <5.0 mg/L Coagulation: Recent Labs 05/23/25 2105 INR 1.0 Stroke Specific: Lipids: Recent Labs 05/24/25 0314 CHOL 106 TRIG 45 HDL 46* HgA1c: 5.6 CTH: Cerebral atrophy, no acute stroke CTA H+N: Independent review of stenosis compared to 04/18 does not show significant increase in stenosis, and bilateral stenosis of ICA was present on that imaging as well. Concern for aortic anterior penetrating aortic ulcer noted as well. Echo 04/18/25: Left Ventricle: Left ventricle size is normal. Mildly increased wall thickness. Normal left ventricular systolic function. EF by 2D Simpsons Biplane is 55%. Normal wall motion. Right Ventricle: Right ventricle size is normal. Normal systolic function. Pericardium: Evidence of prominent epicardial fat. No pericardial effusion. No significant valvular abnormalities. Technically difficult study. 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 ASSESSMENT / PLAN/RECOMMENDATIONS: - Acute onset retinal artery occlusion, right sided - No concern for giant cell arteritis given ESR and CRP, lack of temporal tenderness. - Elevated CRP in the context of JESUS - Uncontrolled hypertension - Bilateral ICA stenosis - Anterior penetrating aortic root ulcer - Hx of recent L eye retinal occlusion 2/2 L ICA stenosis and uncontrolled HTN - Suspected mild cognitive impairment with poor recollection of course of events, likely vascular dementia w/ chronic small vessel changes on imaging - R-sided cervical neck pain - Hypothyroidism - Current tobacco use - BMI of 33.8 - Mild protein malnourishment PLAN: - Follow carotid ultrasound and vascular surgery recommendations - Do not recommend aortic vascular intervention, as agreed that patient has high risk of mortality. Instead recommend DAPT for prevention, as well as high intensity statin, resolution of JESUS, cessation of tobacco use, improve nutrition, and activity. -Avoid drastic blood pressure changes, but instead target a slow controlled descent. Current goal is SBP 160-180, recommend oral therapy instead of IV. - Can pursue renal artery doppler US for HTN workup if continues to be refractory. - Patient lives alone at home, does need social support, would not be safe to return home alone with bilateral blindness. Management per primary. Patient seen and discussed with Dr. Goode [1] Current Facility-Administered Medications: acetaminophen (Tylenol) tablet 650 mg, 650 mg, Oral, q6h PRN, 650 mg at 05/24/25 1234 OR acetaminophen (Tylenol) suppository 650 mg, 650 mg, Rectal, q6h PRN, Rik Bah NP amLODIPine (Norvasc) tablet 10 mg, 10 mg, Oral, Daily, Jas Flores DO amLODIPine (Norvasc) tablet 5 mg, 5 mg, Oral, Daily, Jas Flores DO, 5 mg at 05/25/2558 aspirin EC tablet 81 mg, 81 mg, Oral, Daily, 81 mg at 05/25/25857 OR aspirin suppository 300 mg, 300 mg, Rectal, Daily, Petrona M Dials atorvastatin (Lipitor) tablet 40 mg, 40 mg, Oral, Nightly, Petrona M Dials, 40 mg at 05/24/252033 bisacodyl (Dulcolax) suppository 10 mg, 10 mg, Rectal, Daily PRN, Petrona M Dials cholecalciferol (Vitamin D-3) tablet 1,000 Units, 1,000 Units, Oral, Daily, Petrona M Dials, 1,000 Units at 05/25/25858 clopidogrel (Plavix) tablet 75 mg, 75 mg, Oral, Daily, Jade Goode MD, 75 mg at 05/25/25858 enoxaparin (Lovenox) syringe 40 mg, 40 mg, SubCUTAneous, Daily, Petrona M Dials, 40 mg at 05/25/25858 escitalopram (Lexapro) tablet 10 mg, 10 mg, Oral, Daily, Petrona M Dials, 10 mg at 05/25/25857 labetalol (Normodyne,Trandate) injection 10 mg, 10 mg, IntraVENous, q2h PRN, Jas Flores DO, 10 mg at 05/24/252052 levothyroxine (Synthroid, Levoxyl) tablet 112 mcg, 112 mcg, Oral, qAM AC, Petrona M Dials, 112 mcg at 05/25/25 0515 meclizine (Antivert) tablet 12.5 mg, 12.5 mg, Oral, Daily, Petrona M Dials, 12.5 mg at 05/25/25 0859 ondansetron ODT (Zofran-ODT) disintegrating tablet 4 mg, 4 mg, Oral, q8h PRN, 4 mg at 05/24/25 0335 OR ondansetron (Zofran) injection 4 mg, 4 mg, IntraVENous, q6h PRN, Petrona M Dials, 4 mg at 05/24/25 1234 pantoprazole (ProtoNix) EC tablet 40 mg, 40 mg, Oral, Nightly, 40 mg at 05/24/252033 OR pantoprazole (ProtoNix) 40 mg in sodium chloride (PF) 0.9 % 10 mL injection, 40 mg, IntraVENous, Nightly, Jas Flores DO polyethylene glycol (PEG) 3350 (Miralax) packet 17 g, 17 g, Oral, Daily PRN, Petrona M Dials prochlorperazine (Compazine) tablet 10 mg, 10 mg, Oral, q6h PRN OR prochlorperazine (Compazine) injection 10 mg, 10 mg, IntraVENous, q6h PRN OR prochlorperazine (Compazine) suppository 25 mg, 25 mg, Rectal, q12h PRN, Jas Flores DO sodium chloride 0.9 % infusion, 5-250 mL/hr, IntraVENous, PRN, Petrona M Dials sodium chloride 0.9 % infusion, 50 mL/hr, IntraVENous, Continuous, Petrona M Dials, Last Rate: 50 mL/hr at 05/25/25906, 50 mL/hr at 05/25/25906 sodium chloride 0.9% (NS) flush 5-40 mL, 5-40 mL, IntraVENous, q12h, Petrona M Dials, 10 mL at 05/24/252034 sodium chloride 0.9% (NS) flush 5-40 mL, 5-40 mL, IntraVENous, PRN, Petrona M Dials [2] sodium chloride, 50 mL/hr, Last Rate: 50 mL/hr (05/25/25906) Cosigned by Jade Goode MD at 05/25/2025 2:04 PM EDT Associated attestation - Jade Goode MD - 05/25/2025 2:04 PM EDT Neuro Critical Care / stroke Attending NO clinical change Consult from vascular surgery and chest surgery noted Carotid ultrasound suggest < 50 % , She has severe diffused atherosclerosis,intra and extra cranial , At this point if no surgical interventions continue with DYANA , Consider testing platelet agreegation studies to make sure DYANA is working for this patient There could be consideration to start this patient on anticoagulation instead of DYANA, for her severe atherosclerosis , ulcers and possible mural thrombus , however true data in favor of this is lacking . DOAC being also a potential option Patient currently is a fall risk Her living circumstances are also an issue , as she lives alone and is blind. This will need to be addressed by telephonic nurse case manager If she was to be transfer to a [facility], with max fall precautions DOAC instead of Plavix could be an option Will order platelet studies I personally interviewed and examined this patient , reviewed , corrected, agreed and attested the note for this patient. I reviewed the chart including MAR, labs, neuroimaging, other imaging studies and discussed my diagnostic impression and patient's plan of care with my TANMAY/resident/ Fellow , student and the consulting team and patient's family members/surrogate decision makers (in cases where the patient is incapacitated and unable to participate in their own care). [x] Encounter Face to Face [x] follow up [x] Time spend [x] 50 [x] will continue to follow disposition Personal discussion of test results and plan of care with: Patient treatments and testing options informed consent and plan of care, ., ., ., . Thank you Charlene Walker MD for the opportunity to be involved in this patient's care. Images from the original note were not included. Department of General Surgery Daily Progress Note ADMIT DATE: 05/23/2025 TODAY'S DATE: 05/25/2025 SUBJECTIVE: Concern for syncopal event vs worsening of stroke like symptoms overnight when patient was assisted to the bathroom. This AM she denies any changes but endorses an intermittent headache that she has had for about a week. Tolerating diet. Pain controlled with medications. Denies: fevers, chills, nausea, vomiting, shortness of breath or chest pain. ROS: Noted above unless otherwise mentioned OBJECTIVE: VITALS: Temp: [36.1 C (97 F)-36.3 C (97.3 F)] 36.1 C (97 F) Heart Rate: [61-74] 65 Resp: [16-18] 16 BP: (99-218)/(60-100) 164/72 INTAKE/OUTPUT: Intake/Output Summary (Last 24 hours) at 05/25/2025 0719 Last data filed at 05/24/2025 1238 Gross per 24 hour Intake -- Output 100 ml Net -100 ml I/O last 3 completed shifts: In: 365.8 (4.4 mL/kg) [I.V.:115.8 (1.4 mL/kg); IV Piggyback:250] Out: 101 (1.2 mL/kg) [Emesis/NG output:100; Stool:1] Weight: 83.9 kg No intake/output data recorded. PHYSICAL EXAM: Gen: NAD, A&Ox3, pain well controlled Eyes: limited vision in R eye Heart: RRR, well perfused Lungs: symmetric chest rise, normal work of breathing, breath sounds b/l Abd: soft, non tender, non distended. Non rigid. Ext: no c/c/e no gross deformities Skin: warm, well perfused, no obvious rashes, cellulitis or gross discoloration LABS CBC: Auto WBC Date Value Ref Range Status 05/25/2025 10.7 3.6 - 10.7 10*3/uL Final 05/24/2025 14.2 (H) 3.6 - 10.7 10*3/uL Final 05/23/2025 9.8 3.6 - 10.7 10*3/uL Final Hemoglobin Date Value Ref Range Status 05/25/2025 13.5 11.7 - 16.0 g/dL Final 05/24/2025 14.7 11.7 - 16.0 g/dL Final 05/23/2025 15.7 11.7 - 16.0 g/dL Final Platelets Date Value Ref Range Status 05/25/2025 203 140 - 440 10*3/uL Final 05/24/2025 214 140 - 440 10*3/uL Final 05/23/2025 244 140 - 440 10*3/uL Final BMP: SODIUM Date Value Ref Range Status 05/25/2025 138 136 - 145 mmol/L Final 05/24/2025 138 136 - 145 mmol/L Final 05/23/2025 139 136 - 145 mmol/L Final POTASSIUM Date Value Ref Range Status 05/25/2025 3.7 3.5 - 5.1 mmol/L Final Comment: Plasma potassium values may be up to 0.5 mmol/L lower than serum values. 05/24/2025 3.5 3.5 - 5.1 mmol/L Final Comment: Plasma potassium values may be up to 0.5 mmol/L lower than serum values. 05/23/2025 3.8 3.5 - 5.1 mmol/L Final Comment: Plasma potassium values may be up to 0.5 mmol/L lower than serum values. CHLORIDE Date Value Ref Range Status 05/25/2025 107 98 - 107 mmol/L Final 05/24/2025 107 98 - 107 mmol/L Final 05/23/2025 103 98 - 107 mmol/L Final CARBON DIOXIDE Date Value Ref Range Status 05/25/2025 24 23 - 31 mmol/L Final 05/24/2025 22 (L) 23 - 31 mmol/L Final 05/23/2025 26 23 - 31 mmol/L Final UREA NITROGEN Date Value Ref Range Status 05/25/2025 14 9 - 23 mg/dL Final 05/24/2025 14 9 - 23 mg/dL Final 05/23/2025 16 9 - 23 mg/dL Final CREATININE Date Value Ref Range Status 05/25/2025 1.31 (H) 0.57 - 1.11 mg/dL Final 05/24/2025 1.18 (H) 0.57 - 1.11 mg/dL Final 05/23/2025 1.42 (H) 0.57 - 1.11 mg/dL Final Hepatic: AST (SGOT) Date Value Ref Range Status 05/25/2025 24 <34 U/L Final 05/24/2025 21 <34 U/L Final 05/23/2025 24 <34 U/L Final ALT Date Value Ref Range Status 05/25/2025 13 <30 U/L Final 05/24/2025 13 <30 U/L Final 05/23/2025 18 <30 U/L Final ALBUMIN Date Value Ref Range Status 05/25/2025 3.0 (L) 3.4 - 4.8 g/dL Final 05/24/2025 3.2 (L) 3.4 - 4.8 g/dL Final 05/23/2025 3.7 3.4 - 4.8 g/dL Final BILIRUBIN, TOTAL Date Value Ref Range Status 05/25/2025 1.0 <1.2 mg/dL Final 05/24/2025 1.2 (H) <1.2 mg/dL Final 05/23/2025 1.0 <1.2 mg/dL Final BILIRUBIN, DIRECT Date Value Ref Range Status 12/28/2023 0.0 0.0 - 0.3 mg/dL Final ALKALINE PHOSPHATASE Date Value Ref Range Status 05/25/2025 161 (H) 40 - 150 U/L Final 05/24/2025 180 (H) 40 - 150 U/L Final 05/23/2025 209 (H) 40 - 150 U/L Final Current Inpatient Medications Scheduled Meds:Scheduled Meds[1] Continuous Infusions:Continuous Meds[2] PRN Meds:PRN Meds[3] ASSESSMENT AND PLAN: 84 y.o. female with vision changes in setting of bilateral carotid artery disease and ascending aortic ulcer - No acute vascular intervention - Carotid duplex pending - Pain and nausea control PRN - Strict BP control - Rest of care per primary Will discuss with Dr. Iam Mario MD General Surgery PGY-3 05/25/25 7:19 AM Pager # [phone] This note may have been dictated using [employer] Edition 2.6 and/or [employer] Voice Recognition Feature. The document was proofread; however, unrecognized voice recognition nutrition aide errors may be present. [1] amLODIPine, 10 mg, Oral, Daily amLODIPine, 5 mg, Oral, Daily aspirin, 81 mg, Oral, Daily Or aspirin, 300 mg, Rectal, Daily atorvastatin, 40 mg, Oral, Nightly cholecalciferol, 1,000 Units, Oral, Daily clopidogrel, 75 mg, Oral, Daily enoxaparin, 40 mg, SubCUTAneous, Daily escitalopram, 10 mg, Oral, Daily levothyroxine, 112 mcg, Oral, qAM AC meclizine, 12.5 mg, Oral, Daily pantoprazole, 40 mg, Oral, Nightly Or pantoprazole (ProtoNix) 40 mg in sodium chloride (PF) 0.9 % 10 mL injection, 40 mg, IntraVENous, Nightly sodium chloride 0.9%, 5-40 mL, IntraVENous, q12h [2] sodium chloride, 50 mL/hr, Last Rate: 50 mL/hr (05/24/25 1023) [3] PRN medications: acetaminophen OR acetaminophen, bisacodyl, labetalol, ondansetron ODT OR ondansetron, polyethylene glycol (PEG) 3350, prochlorperazine OR prochlorperazine OR prochlorperazine, sodium chloride, sodium chloride 0.9% Cosigned by Janeth Vitale MD at 05/25/2025 10:27 AM EDT Associated attestation - Janeth Vitale MD - 05/25/2025 10:27 AM EDT Carotid ultrasound shows < 50% bilaterally by velocity criteria however given appearance of waveforms, I suspect there is a higher degree of stenosis on the left. Recommend DAPT. While carotid stenosis is present, the bilaterality of vision her symptoms would be very unusual from carotid disease and I suspect her "shaggy aorta" is a larger contributory factor, especially given appearance of right ICA stenosis which appears to be <60% on CTA by my own evaluation. Will continue to follow. Hospitalist Progress Note 05/25/2025 Subjective: Admit Date: 05/23/2025 PCP: Charlene Walker MD Room#: W3-325/W3-325 B BRIEF HOSPITAL COURSE: This is an 84-year-old female with past medical history of hypothyroidism, hypertension, tobacco use disorder, left eye retinal occlusion, suspected vascular dementia, carotid artery stenosis who presented on 05/23 with a chief complaint of right sided vision loss which occurred on 05/23 after waking up at about 3 AM to use the restroom she denies any other focal neurologic deficits weakness dizziness, numbness or tingling. In the ER was noted to be hypertensive at 232/112. CT head showed no acute findings, CT angiography of the head and neck showed bilateral 80% stenosis of the internal carotids with Eshaghi plaque in the aortic arch with anterior penetrating ulcer. Vascular surgery was consulted regarding carotid stenosis. Cardiothoracic surgery was consulted regarding ascending aortic arch ulcer. Stroke neurology was consulted regarding sudden onset vision loss. 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 Is on dual antiplatelet therapy with aspirin and Plavix. Interval History: Was seen overnight by rapid response team due to concerns of syncopal episode, symptoms resolved as of this morning. Seen and examined this morning and again in the afternoon in no apparent distress. Has had no significant changes to her vision, blindness in the right, is able to see some visual sharma on the left. I had extensive discussion with patient's niece this afternoon. We discussed her current plan of care and all questions and concerns addressed. We also discussed her CODE STATUS. Niece notes that patient has a signed DNR at home, CODE STATUS was confirmed with the patient at bedside. Will change CODE STATUS to reflect these wishes to DNR CCA. Case and plan discussed with patient and bedside nurse. All questions answered. Adult diet Regular; Low Fat/Low Chol/High Fiber/KRYSTLE 24HR INTAKE/OUTPUT: Intake/Output Summary (Last 24 hours) at 05/25/2025 0716 Last data filed at 05/24/2025 1238 Gross per 24 hour Intake -- Output 100 ml Net -100 ml Past Medical History: Medical History[1] LABS: CBC: Recent Labs 05/23/25 2105 05/24/25 0314 05/25/25 0508 WBC 9.8 14.2* 10.7 RBC 5.07 4.74 4.34 HGB 15.7 14.7 13.5 HCT 47.4* 43.1 40.7 MCV 93.5 90.9 93.8 RDW 13.0 13.0 13.0 PLT 244 214 203 BMP: Recent Labs 05/23/25210405/24/2531305/25/25 0508 NA 139 138 138 K 3.8 3.5 3.7 CL 103 107 107 CO2 26 22* 24 BUN 16 14 14 CREATININE 1.42* 1.18* 1.31* GLUCOSE 103 135* 108 CALCIUM 9.5 9.0 8.9 ANIONGAP 10 9 7 LIVER PROFILE: Recent Labs 05/23/25210405/24/2531305/25/25 0508 AST 24 21 24 ALT 18 13 13 BILITOT 1.0 1.2* 1.0 ALKPHOS 209* 180* 161* PROT 7.4 6.3* 6.0* PT/INR: Recent Labs 05/23/252104 PROTIME 10.2 INR 1.0 CARDIAC ENZYMES: No results for input(s): "TROPONINI" in the last 72 hours. Procalcitonin: No results found for: PROCAL COVID-19 PCR: No results for input(s): "COVID19" in the last 72 hours. Objective: Vitals: BP (!) 164/72 (BP Location: Left arm, Patient Position: Lying) Pulse 65 Temp 36.1 C (97 F) (Temporal) Resp 16 Ht 5' 2.01" (1.575 m) Wt 185 lb (83.9 kg) SpO2 92% BMI 33.83 kg/m Pulse Ox: SpO2 Av.5 % Min: 92 % Max: 97 % Supplemental O2: O2 Flow Rate (L/min): 2 L/min Physical Exam Constitutional: General: She is not in acute distress. Appearance: She is obese. HENT: Head: Atraumatic. Cardiovascular: Rate and Rhythm: Normal rate. Pulmonary: Effort: Pulmonary effort is normal. Abdominal: Palpations: Abdomen is soft. Tenderness: There is no abdominal tenderness. There is no guarding. Skin: General: Skin is warm. Neurological: Mental Status: She is alert. Comments: Right-sided visual field with complete blindness, she appears to have some vision in lateral visual sharma of the left. Medications: Scheduled PRN Scheduled Meds[2] PRN Meds[3] Continuous Continuous Meds[4] Assessment Data: (CAT1) Reviewed 3 or more labs/studies ordered by another provider not previously counted (each=1, panels count as 1). (LOW: 2x CAT1 or independent historian MOD: 3x CAT1 or 1x CAT3 EXTENSIVE: 3x CAT1 and 1x CAT3) Acute, acute on chronic, unstable/uncontrolled chronic problems/diagnoses: Sudden onset right-sided visual loss 2/2 CRAO Known history of left retinal artery occlusion Ascending aortic arch ulcer Bilateral carotid artery stenosis None anion gap acidosis Hyperbilirubinemia Leukocytosis-resolved Orthostatic hypotension Stable chronic problems affecting care, new non-acute diagnoses: Uncontrolled hypertension-will continue home amlodipine 5 mg, labetalol 10 mg every 2 hours as needed for SBP greater then 160 Anxiety/depression-on Lexapro 10 mg Hypothyroidism on Synthroid 112 mcg Vitamin D deficiency-continue home vitamin D Plan As a result of the above findings & factors, the following mgmt was pursued: - Blood pressure has been difficult to control, was orthostatic positive today after syncope concerns overnight. Will plan to initiate losartan 25 mg on top of home amlodipine 5 mg, will continue labetalol 10 mg every 2 hours as needed for SBP greater than 160. Ordered compression stockings. -Neurology, vascular surgery, cardiothoracic surgery following. Will continue DAPT. -Home medications as above. - am labs, replace lytes prn - PT/OT/CM/SW - delirium precautions: increase activity, limit nighttime disturbances, and avoid anticholinergic meds, benzos, etc - DVT prophylaxis: SCDs and encourage ambulation Complexity: Acute illness or injury posing a threat to life or body function (HIGH). Risk: Admission to hospital-level care was considered or occurred (HIGH). Advance Directive: Full Code Anticipated Discharge - Date -TBD - Location -TBD likely SNF - Pending the following -placement and oracle fusion consultant recommendations Total time spent (which include face to face and non face to face encounters) : 44 minutes Extended Emergency Contact Information Primary Emergency Contact: Piper Hamilton (POA) Mobile Relation: Louis Flores DO Division of Hospitalist Medicine [employer] [facility] NOTE: This report was transcribed using voice recognition software. Every effort was made to ensure accuracy; however, inadvertent computerized nutrition aide errors may be present. [1] Past Medical History: Diagnosis Date Disease of thyroid gland Hypertension 01/01/2024 [2] amLODIPine, 10 mg, Oral, Daily amLODIPine, 5 mg, Oral, Daily aspirin, 81 mg, Oral, Daily Or aspirin, 300 mg, Rectal, Daily atorvastatin, 40 mg, Oral, Nightly cholecalciferol, 1,000 Units, Oral, Daily clopidogrel, 75 mg, Oral, Daily enoxaparin, 40 mg, SubCUTAneous, Daily escitalopram, 10 mg, Oral, Daily levothyroxine, 112 mcg, Oral, qAM AC meclizine, 12.5 mg, Oral, Daily pantoprazole, 40 mg, Oral, Nightly Or pantoprazole (ProtoNix) 40 mg in sodium chloride (PF) 0.9 % 10 mL injection, 40 mg, IntraVENous, Nightly sodium chloride 0.9%, 5-40 mL, IntraVENous, q12h [3] PRN medications: acetaminophen OR acetaminophen, bisacodyl, labetalol, ondansetron ODT OR ondansetron, polyethylene glycol (PEG) 3350, prochlorperazine OR prochlorperazine OR prochlorperazine, sodium chloride, sodium chloride 0.9% [4] sodium chloride, 50 mL/hr, Last Rate: 50 mL/hr (05/24/25 1023) Images from the original note were not included. OCCUPATIONAL THERAPY [facility] Initial Evaluation Name/MRN: Diana Kohli ([id number]) Evaluation Date: 05/24/2025 Date of : 1940 Admission Date: 05/23/2025 7:45 PM Age: 84 y.o. [facility] Discharge Recommendation: Longterm Facility Assessment IMPRESSION: Pt presents to [facility] with acute CVA. Pt demo's transfers with Min A, limited mobility due to emesis, Min-Max A for ADLs. Pt with significant vision deficits, hx of vision loss of L eye last month, now vision loss of R eye. Pt unable to demo visual tracking of therapist's finger, however demo's crossing of midline with large objects, decreased visual acuity, difficulty with identifying ADL items but identifies colors correctly. Assist provided with use of call light and cell phone for pt to call family. Pt is limited by cognitive deficits, decreased strength, balance, endurance, vision, impacting ADL performance. Pt not safe to discharge home alone and is an increased fall risk. Pt will benefit from acute OT services to address noted deficits and maximize safety and independence for occupational performance. Pt is recommended for SNF for planned discharge. Admitting Diagnosis: Acute cerebrovascular accident (CVA) due to ischemia (HCC) Performance Deficits /Impairments: Increased Pain, Decreased Functional Mobility, Decreased ADL status, Decreased Strength, Decreased Safety Awareness, Decreased Endurance, Decreased Balance, Decreased ROM, Decreased High Level IADLs, Decreased Cognition, and Decreased Vision/Visual Deficit Prognosis: Fair Decision Making: Medium Complexity Subjective Pt presents in chair, agreeable to OT. Pain: RN managing pain. Reports headache and nausea, demo's emesis with RN notified Past Medical History: Medical History[1] Past Surgical History: Surgical History[2] Admission Diagnosis: Patient Active Problem List Diagnosis Date Noted Acute cerebrovascular accident (CVA) due to ischemia (HCC) 05/23/2025 Acute loss of vision, left 04/18/2025 Hypertension 01/01/2024 Submental abscess 12/31/2023 Cellulitis of submental space 12/29/2023 Medical Precautions: No active isolations Proper PPE donned/doffed in accordance with facility standards. Fall Risk: Ny Fall Risk Score: 75 (Medium Risk) Ny Fall Risk Score: 75 (High Risk) Precautions/Restrictions: Lines/Drains/Airways: PIV, chair alarm Family/Caregiver Present: none Overall Cognitive Status: Exceptions - Arousal/alertness: appropriate responses to stimuli and alert but limited by vision - Following commands: follows one step commands with increased time and follows one step commands with repetition - Memory: decreased short term memory - Safety judgement: decreased awareness of need for assistance and decreased awareness of need for safety - Problem solving: assistance required to identify errors made and assistance required to correct errors made Overall Orientation Status: Oriented x4 Social/Functional History Patient admitted from home. Lives With: Alone, niece checks in on pt Type of Home: single family home Home Layout: Single Level Home and Laundry in Basement Home Access: Stairs to Enter without Rails (# of stairs: 3) Bathroom Shower/Tub: Tub/Shower Combo Toilet: Standard Home Equipment: cane (rarely uses) Homemaking Responsibilities: Needs Assist Receives Help From: None Active Vice President Talent Management: yes Prior Level of Function Prior Level of ADL Function: Independent Prior Level of Mobility: Independent; Device: None Prior Level of Transfers: Independent Objective ADLs Grooming: SBA, seated; due to emesis Assisted pt with use of call light and set up of cell phone to call niece due to vision impairment Upper Extremity Assessment AROM: WFL PROM: Not assessed this session Strength: Exceptions: generalized weakness noted Transfers/Mobility Sit to stand: Min Assist Stand to sit: Min Assist At recliner Device(s) used: None Coordination: Normal Coordination Tone: Normal Tone Sensation: Normal Sensation Vision: hx of vision loss of L eye last month, now vision loss of R eye. Pt unable to demo visual tracking of therapist's finger, however demo's crossing of midline with large objects, decreased visual acuity, difficulty with identifying ADL items but identifies colors correctly. Tremors: No Hearing: normal AM-PAC AM-PAC Inpatient Daily Activity Raw Score: 15 ADL Inpatient CMS G-Code Modifier: CK Plan Pt would benefit from skilled acute OT services to address Strengthening, ROM, Gait Training, Balance Training, Self-Care/ADL Training, Functional Mobility Training, Endurance Training, Safety Education and Training, Pain Management, Neuromuscular Re-Education Training, Home Management Training, Patient/Caregiver Training, and Visual Training. Frequency: 3x/weekfor 4 weeks Barriers: Pain, Impaired balance, Lower extremity weakness, Limited safety awareness, Decreased endurance, Upper extremity weakness, Confusion, Dizziness, and vision impairment, emesis Safety/Education Safety Safety Devices in place: All fall risk precautions in place, call light within reach, left in chair, chair alarm in place, gait belt, patient at risk for falls, and nurse notified; neurologist entering Restraints: No Education Education Given To: patient Education Provided: OT Role, Plan of Care, ADL Adaptive Strategies, Transfer Training, Neuro-Vision Education, Discharge Recommendations, and Benefits of Increasing Activity Education Method: Verbal Barriers to Learning: Cognition Education Outcome: Verbalized Understanding and Continued Education Needed Goals Patient Stated Goal: go home Encounter Problems Encounter Problems (Active) Dressing Upper Extremities Patient will complete upper body dressing with supervision. Start: 05/24/25 Expected End: 06/21/25 Dressings Lower Extremities Patient will dress lower body with supervision. Start: 05/24/25 Expected End: 06/21/25 Grooming Patient will complete daily grooming tasks with Mod I. Start: 05/24/25 Expected End: 06/21/25 Toileting Patient will complete toileting tasks at standard toilet with modified independence. Start: 05/24/25 Expected End: 06/21/25 Transfers Patient will complete functional transfer with least restrictive device with modified independence in order to prepare for ambulation. Start: 05/24/25 Expected End: 06/21/25 Patient will perform bed mobility with modified independence in order to improve independence and prepare for out of bed mobility. Start: 05/24/25 Expected End: 06/21/25 Vision Patient will ID 3 ADL objects in bilateral visual hemispheres with min verbal cues. Start: 05/24/25 Expected End: 06/21/25 Therapy Time Individual Co-Treatment Co-Evaluation Time In 1107 Time Out 1130 Minutes 23 Timed Code Treatment Minutes: 8 Minutes (x1 self care) Marta Shah OT Patient's Occupational Therapy Plan of Care supervision is transferred to a [facility] Occupational Therapist. Goals and/or treatment plan was established in collaboration with patient/family/other representatives. [1] Past Medical History: Diagnosis Date Disease of thyroid gland Hypertension 01/01/2024 [2] Past Surgical History: Procedure Laterality Date CHOLECYSTECTOMY NECK EXPLORATION 01/02/2024 INCISION AND DRAINAGE DEEP ABCESS OR HEMATOMA SOFT TISSUE NECK OR THORAX Hospitalist Progress Note 05/24/2025 Subjective: Admit Date: 05/23/2025 PCP: Charlene Walker MD Room#: W3-325/W3-325 B BRIEF HOSPITAL COURSE: This is an 84-year-old female with past medical history of hypothyroidism, hypertension, tobacco use disorder, left eye retinal occlusion, suspected vascular dementia, carotid artery stenosis who presented on 05/23 with a chief complaint of right sided vision loss which occurred on 05/23 after waking up at about 3 AM to use the restroom she denies any other focal neurologic deficits weakness dizziness, numbness or tingling. In the ER was noted to be hypertensive at 232/112. CT head showed no acute findings, CT angiography of the head and neck showed bilateral 80% stenosis of the internal carotids with Eshaghi plaque in the aortic arch with anterior penetrating ulcer. Vascular surgery was consulted regarding carotid stenosis. Cardiothoracic surgery was consulted regarding ascending aortic arch ulcer. Stroke neurology was consulted regarding sudden onset vision loss. Interval History: No overnight issues. Seen and examined this morning in no distress. Endorses no significant change in her vision since yesterday. Denies any current chest pain or shortness of breath. Case and plan discussed with patient and bedside nurse. All questions answered. Adult diet Regular; Low Fat/Low Chol/High Fiber/KRYSTLE 24HR INTAKE/OUTPUT: Intake/Output Summary (Last 24 hours) at 05/24/2025 1320 Last data filed at 05/24/2025 1238 Gross per 24 hour Intake 365.83 ml Output 101 ml Net 264.83 ml Past Medical History: Medical History[1] LABS: CBC: Recent Labs 05/23/25 1559 05/23/25210405/24/25313 WBC 8.1 9.8 14.2* RBC 4.84 5.07 4.74 HGB 14.9 15.7 14.7 HCT 45.2 47.4* 43.1 MCV 93.4 93.5 90.9 RDW 12.9 13.0 13.0 PLT 206 244 214 BMP: Recent Labs 05/23/25210405/24/25313 NA 139 138 K 3.8 3.5 CL 103 107 CO2 26 22* BUN 16 14 CREATININE 1.42* 1.18* GLUCOSE 103 135* CALCIUM 9.5 9.0 ANIONGAP 10 9 LIVER PROFILE: Recent Labs 05/23/25210405/24/25313 AST 24 21 ALT 18 13 BILITOT 1.0 1.2* ALKPHOS 209* 180* PROT 7.4 6.3* PT/INR: Recent Labs 05/23/252104 PROTIME 10.2 INR 1.0 CARDIAC ENZYMES: No results for input(s): "TROPONINI" in the last 72 hours. Procalcitonin: No results found for: PROCAL COVID-19 PCR: No results for input(s): "COVID19" in the last 72 hours. Objective: Vitals: BP (!) 188/100 (BP Location: Left arm, Patient Position: Sitting) Pulse 74 Temp 36.2 C (97.1 F) (Temporal) Resp 18 Ht 5' 2.01" (1.575 m) Wt 185 lb (83.9 kg) SpO2 94% BMI 33.83 kg/m Pulse Ox: SpO2 Av.6 % Min: 93 % Max: 100 % Supplemental O2: O2 Flow Rate (L/min): 2 L/min Physical Exam Constitutional: General: She is not in acute distress. HENT: Head: Atraumatic. Cardiovascular: Rate and Rhythm: Normal rate. Pulmonary: Effort: Pulmonary effort is normal. Abdominal: Palpations: Abdomen is soft. Tenderness: There is no abdominal tenderness. There is no guarding. Neurological: Mental Status: She is alert. Comments: Right-sided visual field with complete blindness, she appears to have some vision in lateral visual sharma of the left. 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 Consult placed to opthalmology. -Cardiothoracic surgery following regarding aortic arch ulcer -Vascular surgery following regarding carotid stenosis -Will continue home medications as above. - am labs, replace lytes prn - PT/OT/CM/SW - delirium precautions: increase activity, limit nighttime disturbances, and avoid anticholinergic meds, benzos, etc - DVT prophylaxis: SCDs and encourage ambulation Complexity: Acute illness or injury posing a threat to life or body function (HIGH). Risk: Admission to hospital-level care was considered or occurred (HIGH). Advance Directive: Full Code Anticipated Discharge - Date -TBD - Location -TBD - Pending the following -PT/OT consult recommendations Total time spent (which include face to face and non face to face encounters) : 37 minutes Extended Emergency Contact Information Primary Emergency Contact: Piper Hamilton (POA) Mobile Relation: Louis Flores DO Division of Hospitalist Medicine [facility] NOTE: This report was transcribed using voice recognition software. Every effort was made to ensure accuracy; however, inadvertent computerized nutrition aide errors may be present. [1] Past Medical History: Diagnosis Date Disease of thyroid gland Hypertension 01/01/2024 [2] amLODIPine, 5 mg, Oral, Daily aspirin, 81 mg, Oral, Daily Or aspirin, 300 mg, Rectal, Daily atorvastatin, 40 mg, Oral, Nightly cholecalciferol, 1,000 Units, Oral, Daily clopidogrel, 75 mg, Oral, Daily enoxaparin, 40 mg, SubCUTAneous, Daily escitalopram, 10 mg, Oral, Daily levothyroxine, 112 mcg, Oral, qAM AC meclizine, 12.5 mg, Oral, Daily sodium chloride 0.9%, 5-40 mL, IntraVENous, q12h [3] PRN medications: acetaminophen OR acetaminophen, bisacodyl, labetalol, ondansetron ODT OR ondansetron, polyethylene glycol (PEG) 3350, sodium chloride, sodium chloride 0.9% [4] sodium chloride, 50 mL/hr, Last Rate: 50 mL/hr (05/24/25 1023) Images from the original note were not included. PHYSICAL THERAPY [facility] Initial Evaluation Name/MRN: Diana Kohli ([id number]) Evaluation Date: 05/24/2025 Date of : 1940 Admission Date: 05/23/2025 7:45 PM Age: 84 y.o. Room/Bed: [facility]/W3-325 B Discharge Recommendation: Longterm Facility Other: TBD Assessment IMPRESSION: 84 yo pt seen in acute care for dizziness and stroke like symptoms. Pt required min a for bed mobility and transfers. Pt required min to mod a for gait using FWW and ambulated 25 ft. Pt limited by cognition, dizziness, fatigue, SOB, and visual changes. Recommend discharge to SNF. Admitting Diagnosis: dizziness and stroke like sxs. Prognosis: fair Performance Deficits /Impairments: Decreased Functional Mobility, Decreased ADL status, Decreased Strength, Decreased Safety Awareness, Decreased Endurance, Decreased Balance, Decreased ROM, Decreased Cognition, Decreased Vision/Visual Deficit, and Decreased Posture Decision Making: Medium Complexity Subjective Pt found sleeping in hospital bed. Cleared by nursing. Pt agrees to therapy. Pain: Pt denies any current pain. Past Medical History: Medical History[1] Past Surgical History: Surgical History[2] Admission Diagnosis: Patient Active Problem List Diagnosis Date Noted Acute cerebrovascular accident (CVA) due to ischemia (HCC) 05/23/2025 Acute loss of vision, left 04/18/2025 Hypertension 01/01/2024 Submental abscess 12/31/2023 Cellulitis of submental space 12/29/2023 Medical Precautions: No active isolations Proper PPE donned/doffed in accordance with facility standards. Fall Risk: Ny Fall Risk Score: 75 (Medium Risk) Ny Fall Risk Score: 75 (High Risk) Precautions/Restrictions: Lines/Drains/Airways: PIV, 2L O2 Fall Precautions + alarms Family/Caregiver Present: none Overall Cognitive Status: Exceptions - Arousal/alertness: delayed responses to stimuli - Following commands: follows one step commands with increased time and follows one step commands with repetition - Safety judgement: decreased awareness of need for assistance - Initiation: requires cues for all Overall Orientation Status: Oriented x4 Vision: Garrick carotid artery stenosis. Pt unable to read PT's name tag or see PT less than a foot away. Pt required tactile cue for call light due to not being able to see. Hearing: normal Social/Functional History Patient admitted from home. Lives With: Alone Type of Home: single family home Home Layout: Single Level Home and Laundry in Basement Home Access: Stairs to Enter without Rails (# of stairs: 3) Bathroom Shower/Tub: Tub/Shower Combo Toilet: Standard Home Equipment: cane (rarely uses) Homemaking Responsibilities: Needs Assist Receives Help From: None Active Vice President Talent Management: N/A Prior Level of Function Prior Level of ADL Function: Independent Prior Level of Mobility: Independent; Device: None Prior Level of Transfers: Independent Objective Lower Extremity Assessment AROM: WFL PROM: WFL Strength: WFL 3+/5 overall Sensation: WFL Balance: Not assessed this session Bed Mobility: Supine to sit: Min Assist Scooting: Min Assist Required verbal and tactile cueing, lethargic, complaints of dizziness Transfers Sit to stand: Min Assist Stand to sit: Min Assist Verbal and tactile cueing, experienced fatigue Ambulation Ambulation 1 Assistive device(s) used: Front wheeled walker Assist level: Min Assist, Mod Assist Distance (ft): 25 Quality of gait: shuffling, narrow DELILAH, slow dewey Initial gait from bed to the bathroom required min a. Pt walked to hallway from restroom and regressed to mod a due to increased fatigue, SOB, shuffling of garrick feet, and dizziness. Chair assist required to get pt back to room from hallway Outcome Measures AM-PAC How much HELP from another person do you currently need Turning from your back to your side while in a flat bed without using bedrails?: A Little Moving from lying on your back to sitting on the side of a flat bed without using bedrails?: A Little Moving to and from a bed to a chair (including a wheelchair)?: A Little Standing up from a chair using your arms (wheelchair or bedside chair)?: A Little Walking in a hospital room?: A Little Stair climbing assessed?: No AM-PAC Inpatient Mobility Raw Score (No Stairs) : 15 [facility] Score: Walked 25 ft or more (i.e. walked outside of room) Plan Pt would benefit from skilled acute PT services to address Strengthening, ROM, Gait Training, Balance Training, Self-Care/ADL Training, Endurance Training, Safety Education and Training, Stair Training, Cognitive Reorientation, and Visual Training. Frequency: 3x/weekfor 4 weeks Barriers: Impaired balance, Lower extremity weakness, Decreased endurance, Limited safety awareness, Confusion, Stairs at home, Dizziness, Limited family support, and Impaired vision Safety/Education Safety Safety Devices in place: All fall risk precautions in place, call light within reach, left in chair, chair alarm in place, gait belt, and patient at risk for falls Restraints: No Education Education Given To: patient Education Provided: PT Role, PT Goals, Gait Training, and Plan of Care Education Method: Verbal Barriers to Learning: Cognition, Vision Education Outcome: Verbalized Understanding Goals Patient Stated Goal: To go home Encounter Problems Encounter Problems (Active) Balance Patient will maintain dynamic standing balance for 2 minutes with modified independence in order to demonstrate decreased risk of falling. Start: 05/24/25 Expected End: 06/21/25 Balance Patient will maintain static standing balance for 3 minutes with modified independence in order to demonstrate decreased risk of falling. Start: 05/24/25 Expected End: 06/21/25 Mobility Patient will ambulate 50 feet with modified independence and rolling walker in order to improve safety and independence with mobility. Start: 05/24/25 Expected End: 06/21/25 Patient will ascend and descend 8 stairs with one railing and modified independence in order to safely negotiate home. Start: 05/24/25 Expected End: 06/21/25 Transfers Patient will perform bed mobility with independence in order to improve independence and prepare for out of bed mobility. Start: 05/24/25 Expected End: 06/21/25 Patient will complete sit to stand transfer with independence to none in order to improve safety and prepare for out of bed mobility. Start: 05/24/25 Expected End: 06/21/25 Therapy Time Individual Co-Treatment Co-Evaluation Time In 0835 Time Out 0933 Minutes 58 Timed Code Treatment Minutes: 10 Minutes (gait) Variance: 5 (DISTRIBUTOR CLEANER in room) Rosemary Ruiz Patient's Physical Therapy Plan of Care supervision is transferred to a [facility] Physical Therapist. Goals and/or treatment plan was established in collaboration with patient/family/other representatives. [1] Past Medical History: Diagnosis Date Disease of thyroid gland Hypertension 01/01/2024 [2] Past Surgical History: Procedure Laterality Date CHOLECYSTECTOMY NECK EXPLORATION 01/02/2024 INCISION AND DRAINAGE DEEP ABCESS OR HEMATOMA SOFT TISSUE NECK OR THORAX Cosigned by Abril Bianchi PT at 05/24/2025 12:37 PM EDT Speech-Language Pathology Patient passed the Nursing Swallowing Screening. As per stroke policy, no formal dysphagia evaluation is required. Completed speech orders. documented in this encounter [facility] 06-05-2025 Consult note Associated Order (s): IP CONSULT TO CARDIOLOGY [facility] [place] [facility] Interventional Cardiology Consult Note Reason for Consult/Chief Complaint: Renal artery stenosis Referring provider: Dr. Jessica Established elephant keeper: None History of Present Illness: Diana Kohli is a 84 y.o. female active smoker with history of hypertension, hypothyroidism, bilateral carotid artery disease and proximal aortic arch saccular aneurysm noted on CT neck 12/2023. Apparently she was admitted last month 04/18/25 for what sounds like a left amaurosis fugax with hypertensive emergency, CTA neck then showed bilateral carotid stenosis with left ICA ostial 60% stenosed and the right ICA showed 40% stenosis, MRI brain showed chronic microvascular ischemia and remote infarct, her vision partially improved and she was discharged without further workup to follow-up as outpatient. She is now admitted again on 05/23/2025 with acute sudden right painless vision loss with hypertensive emergency. Carotid US reported underestimated left internal carotid stenosis due to significant heterogenous calcifications and on right ICA of about <50% with moderate plaque, CTA neck reported 80% stenosis of bilateral internal carotid artery, with significant aortic plaque, no interval changes in MRI brain. Neurology, CTS and vascular surgeon were consulted, and subsequently she underwent left carotid endarterectomy on 05/29. Her hypertension has been managed by paramedical aide and hospital medicine. We were consulted for difficult to manage hypertension with workup showing >60% right renal artery stenosis by ultrasound. Major challenge has been control of chronic labile blood pressure. Assessment/Plan Renovascular hypertension: She has been having difficulty in maintaining blood pressure with second admission in a month for hypertensive emergency, hypertension is managed by nephrology and have noted to be labile making it difficult to control, with further workup noting > 60% right renal artery stenosis on ultrasound. We were consulted given clinical situation and imaging findings. After discussion with patient and patient niece at bedside, renal angiography was offered with possible intervention. Risk benefits and alternative of the procedures were discussed and the decision is made to proceed with angiogram. On angiogram she had severe ostial right renal artery stenosis and is status post percutaneous intervention with one drug-eluting stent. Her left renal artery is suspected to be ostially occluded based on angiogram. She should continue DAPT with aspirin and brilinta as previously she was on plavix and her PRU was ~190 with making her a nonresponder. Load with brilinta followed by 90mg BID. She will continue high intensity statin. Agree with current medication for blood pressure control, continue to follow recommendation by nephrology for blood pressure control. Bilateral carotid artery disease now s/p left carotid endarterectomy Residual right internal carotid stenosis atleast 60-70% based on CTA. Left vertebral artery stenosis based on CTA Severe aortic atherosclerotic disease with penetrating aortic ulcer in the ascending aorta. Sequential left (last month) and right (current admission) painless vision loss, mild improved vision in left eye TIA Neurology and vascular medicine team have signed off. Major risk factors are smoking and hypertension. Hypertension management as above. She is currently on aspirin and statin . Her Plavix was discontinued as she was thought to be nonresponder with PRU testing showing suboptimal inhibition. Recommend DAPT with aspirin and brilinta. She has high burden atherosclerotic disease in aorta and great vessels of aorta that led to her presentation. She should be on DAPT as long as tolerated. Medications: Scheduled Meds[1] Infusion Medications: Continuous Meds[2] Physical Examination: Vitals: 06/04/25 2349 06/05/25 0342 06/05/25 0745 06/05/25 1115 BP: 146/94 125/66 130/68 155/60 BP Location: Right arm Right arm Left arm Right arm Patient Position: Sitting Sitting Sitting Sitting Pulse: 77 64 67 55 Resp: 16 Temp: (!) 35.9 C (96.6 F) (!) 35.6 C (96.1 F) (!) 35.9 C (96.6 F) (!) 35.9 C (96.6 F) TempSrc: Temporal Temporal Temporal Temporal SpO2: 98% 94% 95% 90% Weight: Height: Intake/Output Summary (Last 24 hours) at 06/05/2025 1125 Last data filed at 06/05/2025 1035 Gross per 24 hour Intake 506.35 ml Output -- Net 506.35 ml Wt Readings from Last 3 Encounters: 05/24/25 185 lb (83.9 kg) 04/19/25 184 lb 15.5 oz (83.9 kg) 04/17/25 185 lb (83.9 kg) Physical Exam Constitutional: no distress. well nourished. well hydrated Psychiatric: A &O x 2. Medical insight reasonably good, hard of hearing NMT: Oral mucosa is pink and moist Neck: no JVD. Respiratory: Lungs are clear Cardiac exam: Rhythm: RRR ; Normal S1 and S2 Murmur: no Other: No rub; no gallop Vasc: Peripheral pulses intact Abdomen: soft Extremities: no LE edema Skin: Warm to touch and well perfused Laboratory Tests: TROPONIN I, CONVENTIONAL SENSITIVITY No results found for: "CKTOTAL", "CKMB", "CKMBINDEX", "TROPONINI" TROPONIN I, HIGH SENSITIVITY Troponin HS Serial Baseline Date Value Ref Range Status 06/02/2025 9 <=14 ng/L Final Comment: In individuals presenting with symptoms > 2h, a baseline troponin <= 5 ng/L suggests acute cardiac injury is unlikely and further serial testing is generally not indicated. 05/30/2025 8 <=14 ng/L Final Comment: In individuals presenting with symptoms > 2h, a baseline troponin <= 5 ng/L suggests acute cardiac injury is unlikely and further serial testing is generally not indicated. 05/23/2025 9 <=14 ng/L Final Comment: In individuals presenting with symptoms > 2h, a baseline troponin <= 5 ng/L suggests acute cardiac injury is unlikely and further serial testing is generally not indicated. 04/18/2025 7 <=14 ng/L Final Comment: In individuals presenting with symptoms > 2h, a baseline troponin <= 5 ng/L suggests acute cardiac injury is unlikely and further serial testing is generally not indicated. 2h Troponin HS (Serial 2nd Troponin) Date Value Ref Range Status 06/03/2025 13 <=14 ng/L Final Comment: 2h troponin (2nd troponin) samples collected between 1h 40 min and 2h and 20 min of the baseline collection time can be utilized to interpret delta troponins as per Sum[employer] algorithms. Samples collected outside this timeframe need to be interpreted clinically. Rising or falling troponin delta between 2 - 15 ng/L as compared to baseline value requires a 3rd serial troponin 05/30/2025 9 <=14 ng/L Final Comment: 2h troponin (2nd troponin) samples collected between 1h 40 min and 2h and 20 min of the baseline collection time can be utilized to interpret delta troponins as per [employer] algorithms. Samples collected outside this timeframe need to be interpreted clinically. Rising or falling troponin delta below 2 ng/L as compared to baseline value suggests that acute cardiac injury is unlikely. 05/23/2025 9 <=14 ng/L Final Comment: Rising or falling troponin delta below 2 ng/L as compared to baseline value suggests that acute cardiac injury is unlikely. 04/18/2025 6 <=14 ng/L Final Comment: Rising or falling troponin delta below 2 ng/L as compared to baseline value suggests that acute cardiac injury is unlikely. No results found for: "TROPDELTBASE" No results found for: "TROPHS3" No results found for: "TROPDELTSEC" Recent Labs 06/03/25 0410 06/04/25 0109 06/05/25 0012 NA 136 137 134* K 3.0* 4.2 3.9 CL 106 106 104 CO2 24 24 22* BUN 12 12 13 CREATININE 1.09 1.10 1.19* EGFR 50.8* 50.3* 45.7* Recent Labs 06/03/25 0411 06/04/25 0109 06/05/25 0012 WBC 10.9* 9.3 10.0 HGB 13.3 13.0 12.5 HCT 39.9 37.8 37.2 MCV 92.8 91.7 93.7 PLT 270 253 260 Lab Results Component Value Date HGBA1C 5.6 04/19/2025 Lab Results Component Value Date TSH 1.09 05/23/2025 Lab Results Component Value Date CHOL 106 05/24/2025 CHOL 172 04/19/2025 Lab Results Component Value Date HDL 46 (L) 05/24/2025 HDL 48 (L) 04/19/2025 Lab Results Component Value Date LDLCALC 51 05/24/2025 LDLCALC 105 (H) 04/19/2025 Lab Results Component Value Date TRIG 45 05/24/2025 TRIG 95 04/19/2025 No results found for: "CHOLHDL" No results found for: "LDLCHOLESTER" No results for input(s): "BNP" in the last 72 hours. No results for input(s): "INR" in the last 72 hours. No results found for: "IRON", "TIBC", FERRITIN Radiology: CXR: personally reviewed: Cardiac Tests Personally Reviewed: Last EKG 05/23/25 ECG 12-LEAD 06/03/2025 5:30 PM (Final) Impression Sinus rhythm Nonspecific T abnormalities, lateral leads Electronically Signed On 06-03-2025 17:30:43 EDT by Daren Lopez Signed by: Daren Lopez MD on 06/03/2025 5:30 PM Telemetry findings: SR Reports reviewed: Last Echo 04/18/25 TRANSTHORACIC ECHOCARDIOGRAM (TTE) COMPLETE (CONTRAST/BUBBLE/3D PRN) 04/19/2025 12:13 PM (Final) Interpretation Summary Left Ventricle: Left ventricle size is normal. Mildly increased wall thickness. Normal left ventricular systolic function. EF by 2D Simpsons Biplane is 55%. Normal wall motion. Right Ventricle: Right ventricle size is normal. Normal systolic function. Pericardium: Evidence of prominent epicardial fat. No pericardial effusion. No significant valvular abnormalities. Technically difficult study. Signed by: Margaux Chicas MD on 04/19/2025 12:13 PM Last Cath No results found for this or any previous visit. Last Stress Test No results found for this or any previous visit. Last EP study No results found for this or any previous visit. EF BP Date Value Ref Range Status 04/19/2025 55 55 - 100 % Final Garrett Urbina MD DATE of SERVICE: 06/05/2025 [1] amLODIPine, 5 mg, Oral, Daily aspirin, 81 mg, Oral, Daily Or aspirin, 300 mg, Rectal, Daily atorvastatin, 80 mg, Oral, Nightly cholecalciferol, 1,000 Units, Oral, Daily enoxaparin, 40 mg, SubCUTAneous, Daily escitalopram, 10 mg, Oral, Daily levothyroxine, 112 mcg, Oral, qAM AC losartan, 25 mg, Oral, BID meclizine, 12.5 mg, Oral, Daily pantoprazole, 40 mg, Oral, Nightly sodium chloride 0.9%, 5-40 mL, IntraVENous, q12h [2] Cosigned by Caio Tran MD at 06/08/2025 5:16 PM EDT Associated attestation - Caio Tran MD - 06/08/2025 5:16 PM EDT I, Dr. Tran saw and evaluated the patient on 06/05. I personally obtained the littlejohn and critical portions of the history and physical exam. I reviewed the chart and discussed the patient with the fellow . I agree with the fellow's medical decision making. In summary, this is an 84-year-old female with a history of carotid endarterectomy and chronic kidney disease who was evaluated for renal artery angiography and possible intervention for suspected renovascular hypertension. She had labile blood pressures, and duplex ultrasound suggested >60% right renal artery stenosis. Angiography revealed 80-90% ostial right renal artery stenosis. She underwent IVUS-guided percutaneous intervention with placement of a 5.0 mm drug-eluting stent, post-dilated to 6.0 mm NC, with subsequent improvement in blood pressure stability. Plan: Continue dual antiplatelet therapy for one month, then transition to single antiplatelet therapy. Monitor renal function and blood pressure response. Portions of the information within this encounter were entered using an electronic dictation system. Best attempts were made to proofread the information prior to note completion. Despite the review of the information, some errors may remain. If there are questions related to the information contained within the note please contact the signing provider directly. Caio Tran MD Interventional & Structural Corporate Legal Manager [facility], [facility] [address] [address] p [phone] f [phone] Associated Order(s): IP CONSULT TO NEPHROLOGY [facility] Nephrology Consultation Note Reason for consultation: Uncontrolled HTN Chief Complaint: Right eye vision loss History of Presenting Illness Patient is a 84 y.o. female with PMHx noted below who presented to [facility] ED on 05/23/2025 with chief complaint listed above, reportedly experienced right sided vision loss after waking up at about 3 AM to use the restroom. Pt denied any other focal neurologic deficits, weakness, dizziness, numbness/tingling. Prior to coming into the hospital, she did see a umbrella tipper who was concerned for giant cell arteritis however on presentation to the ER she denied significant headache, temporal pain etc. In the ED, pt was extremely hypertensive at 232/112. Pt admitted for further evaluation and management. Neuro consulted, SBP goal of 120 to 180. CTS consulted d/t irregularities of pt's aorta with multiple areas of ulceration and atherosclerotic disease, surgery thought to be very high risk for complications, recommended conservative management. Ophthalmology consulted, central retinal artery occlusion diagnosed. Vascular consulted d/t bilateral carotid artery disease, no acute vascular intervention. However decision made to undergo left carotid endarterectomy on 05/29. Nephrology is consulted for evaluation and management of uncontrolled HTN. BP most recently 187/84. SBP has ranged from 130's to 220's over past 48 hours. Home meds notable for amlodipine 5 mg/day. Amlodipine on hold since 05/30 Losartan 25 mg/day started 05/25 on hold since 05/30 Has been receiving IV hydralazine 10 mg q 4 hours Past Medical/Surgical History Medical History[1] Surgical History[2] Review of Systems All 12 systems reviewed and are negative except for what is mentioned in the HPI. Allergies Patient has no known allergies. Family History Family History[3] Social History Social History[4] Medications Prescriptions Prior to Admission[5] Current Medications: Scheduled Meds[6] Continuous Infusions:Continuous Meds[7] PRN Meds:PRN Meds[8] Physical Exam Vitals: 06/02/25 0200 06/02/25 0235 06/02/25 0307 06/02/25 0717 BP: (!) 142/33 (!) 167/58 (!) 205/91 BP Location: Right arm Patient Position: Sitting Pulse: 53 82 53 58 Resp: 22 14 19 Temp: (!) 35.9 C (96.7 F) 36.1 C (97 F) TempSrc: Temporal Temporal SpO2: 97% 94% Weight: Height: Input / Output: 24 HR: No intake or output data in the 24 hours ending 06/02/25 08 IV Intake: P.O. (mL): 50 mL [place]: [REMOVED] External Urinary Catheter-Output (mL): 800 mL General: Comfortable appearing, cooperative to history and physical exam. Head: NCAT Eye: anicteric sclera, conjunctiva clear Mouth: mucus membrane semi-moist Neck: Supple Chest: B/L equal air entry, no crackles, no accessory muscles usage. CV: s1s2 heard RRR Abdomen: NT, non-distended, soft bowel sounds present, no palpable masses Extremities: no peripheral edema, no cyanosis or clubbing Skin: Warm, no rash Neurological: Oriented times three, Speech clear coherent Psychiatric: normal insight and judgement, good recall Data No results for input(s): "WBC", "HGB", "HCT", "MCV", "PLT" in the last 72 hours. Recent Labs 05/31/25 0038 06/01/25 0253 06/02/25 0243 NA 140 139 140 K 3.4* 3.5 3.3* CL 112* 109* 109* CO2 20* 25 22* GLUCOSE 74* 76* 86 PHOS 3.3 2.5 2.9 MG 1.7 1.8 1.8 BUN 13 11 9 CREATININE 1.03 1.01 0.97 Albumin: No components found for: LABALBU Calcium: Lab Results Component Value Date CALCIUM 8.5 (L) 06/02/2025 Ionized Calcium: No components found for: "IONCA" Magnesium: Lab Results Component Value Date MG 1.8 06/02/2025 Phosphorus: Lab Results Component Value Date PHOS 2.9 06/02/2025 Imaging: reviewed No results found for: "APPEARANCE", "COLORU", "LABSPEC", "LABPH", "URINE", "GLUCOSEU", "UROBILINOGEN", "BILIRUBINUR", "OCBU" Assessment 84 y.o. female with Uncontrolled HTN CKD stage 3a Hypokalemia Bilateral carotid artery disease Acute R central retinal artery occlusion NAGMA RECOMMENDATIONS: -Target SBP less than 180 per neurology recs Resume home amlodipine 5 mg/day Monitor BP response Goal will be to bring down blood pressures slowly over the coming days Will consider further workup for secondary HTN based on response to resuming home antihypertensive -Renal function stable at patient's baseline ~ 1.0 Cont to monitor scr trend closely given hemodynamic fluctuations at risk for developing JESUS -K noted at 3.3, replete with 50 mEq po KHCo3, will help to correct acidosis as well -Neuro and vascular input noted -Rest of management per primary team We will follow along closely. Thank you for asking us to participate in the management of your patient, please do not hesitate to contact me for any concerns regarding my recommendations as outlined above. I can be easily reached via Secure Chat SIGNATURE: Mackenzie Chavez PA-C PATIENT NAME: Diana Kohli DATE: June 02, 2025 Office [facility] [phone] Note not finalized until authorized by Attending physician. [1] Past Medical History: Diagnosis Date Disease of thyroid gland Hypertension 01/01/2024 [2] Past Surgical History: Procedure Laterality Date CHOLECYSTECTOMY NECK EXPLORATION 01/02/2024 INCISION AND DRAINAGE DEEP ABCESS OR HEMATOMA SOFT TISSUE NECK OR THORAX [3] No family history on file. [4] Social History Socioeconomic History Marital status: Tobacco Use Smoking status: Every Day Current packs/day: 0.75 Average packs/day: 0.8 packs/day for 66.6 years (49.9 ttl pk-yrs) Types: Cigarettes Start date: 1956 Smokeless tobacco: Never Tobacco comments: 05/26/25 Started smoking age 18, smokes 0.5-1ppd, depending. No vape history of use. Vaping Use Vaping status: Never Used Substance and Sexual Activity Alcohol use: Not Currently Drug use: Not Currently Sexual activity: Not Currently Social Drivers of Health Financial Resource Strain: Low Risk (05/24/2025) Overall Financial Resource Strain (CARDIA) Difficulty of Paying Living Expenses: Not very hard Food Insecurity: No Food Insecurity (05/24/2025) Hunger Vital Sign Worried About Running Out of Food in the Last Year: Never true Ran Out of Food in the Last Year: Never true Transportation Needs: No Transportation Needs (05/24/2025) PRAPARE - Transportation Lack of Transportation (Medical): No Lack of Transportation (Non-Medical): No Physical Activity: Inactive (05/24/2025) Exercise Vital Sign Days of Exercise per Week: 0 days Minutes of Exercise per Session: 0 min Stress: No Stress Concern Present (05/24/2025) [employer] [place] [employer] - Occupational Stress Questionnaire Feeling of Stress : Only a little Social Connections: Unknown (05/24/2025) Social Connection and Isolation Panel [NHANES] Frequency of Communication with Friends and Family: Three times a week Frequency of Social Gatherings with Friends and Family: Three times a week Attends Baptism Services: Patient declined Active Member of Clubs or Organizations: Patient declined Attends Club or Organization Meetings: Patient declined Marital Status: Intimate Partner Violence: Not At Risk (05/24/2025) Humiliation, Afraid, Rape, and Kick questionnaire Fear of Current or Ex-Partner: No Emotionally Abused: No Physically Abused: No Sexually Abused: No Housing Stability: Low Risk (05/24/2025) Housing Stability Vital Sign Unable to Pay for Housing in the Last Year: No Number of Times Moved in the Last Year: 0 Homeless in the Last Year: No [5] Medications Prior to Admission Medication Sig Dispense Refill Last Dose/Taking aspirin 81 MG EC tablet Take 81 mg by mouth daily. 05/23/2025 amLODIPine (Norvasc) 5 MG tablet Take 5 mg by mouth before bedtime. atorvastatin (Lipitor) 40 MG tablet Take 1 tablet (40 mg) by mouth Nightly. 30 tablet 0 cholecalciferol (Vitamin D-3) 25 MCG (1000 UT) capsule Take 1,000 Units by mouth daily. [] clopidogrel (Plavix) 75 MG tablet Take 1 tablet (75 mg) by mouth daily. 30 tablet 0 escitalopram (Lexapro) 10 MG tablet Take 10 mg by mouth daily. levothyroxine (Synthroid, Levoxyl) 112 MCG tablet Take 112 mcg by mouth every morning (before breakfast). meclizine (Antivert) 25 MG tablet Take 12.5 mg by mouth in the morning. [6] [Held by provider] amLODIPine, 5 mg, Oral, Daily aspirin, 81 mg, Oral, Daily Or aspirin, 300 mg, Rectal, Daily atorvastatin, 80 mg, Oral, Nightly cholecalciferol, 1,000 Units, Oral, Daily clopidogrel, 75 mg, Oral, Daily enoxaparin, 40 mg, SubCUTAneous, Daily escitalopram, 10 mg, Oral, Daily levothyroxine, 112 mcg, Oral, qAM AC [Held by provider] losartan, 25 mg, Oral, Daily meclizine, 12.5 mg, Oral, Daily pantoprazole, 40 mg, Oral, Nightly sodium chloride 0.9%, 5-40 mL, IntraVENous, q12h [7] sodium chloride, 50 mL/hr, Last Rate: 50 mL/hr (06/01/25 0537) [8] PRN medications: acetaminophen OR acetaminophen, bisacodyl, hydrALAZINE, labetalol, ondansetron ODT OR [DISCONTINUED] ondansetron, polyethylene glycol (PEG) 3350, prochlorperazine OR prochlorperazine OR prochlorperazine, sodium chloride, sodium chloride 0.9% Cosigned by Raquel Lord MD at 06/02/2025 2:24 PM EDT Associated attestation - Raquel Lord MD - 06/02/2025 2:24 PM EDT Patient was seen and examined by me. Notes reviewed and plan discussed with the PA. Agree with above note except Any variance is noted below. Given advanced age, concerns for CVA and hemodynamic fluctuations, will work on gradual BP control. Resume on amlodipine for now. Given ASVD, high joaquin of CONNER and CONNER pathway activation. Check renin and vamsi levels in am. CVA (I63.9): Tx per primary Cont w PRN hydralazine. Raquel Lord MD [facility] [phone] Associated Order(s): IP CONSULT TO STROKE TEAM STROKE TEAM NOTE Patient Name: Diana Kohli Patient : 1940 Acct: [id number] Date of Admission: 05/23/2025 Room/Bed: 1C130/1C130 A PCP: Charlene Walker MD Stroke team; Floor History of Present Ilness: 84 y.o. female with PMHx bilateral carotid artery stenosis s//p recent L carotid endarterectomy (05/29/25), suspected vascular dementia, L eye retinal occlusion who was at 1215 was noticed to develop R facial droop, R sided gaze deviation, and L sided weakness. Initially a rapid response team was called, who then called a stroke team. Of note, following patient's L carotid endarterectomy (05/29) in PACU she was noted to have R sided facial drooping that resolved by the time surgery team arrived. It was deemed to occur in the setting of hypotension. Last seen well; 1215 ED arrival: N/A Stroke team activation 1236 NIHSS upon arrival: 14 Associated symptoms: R gaze deviation, L sided weakness, ataxia Current use of anticoagulants: No If on anticoagulants when was last dose: N/A Preadmission secondary prevention antiplatelets and statins: Yes History of AF: No Contraindications for thrombolytic treatment: Recent L carotid endarterectomy Past Medical History: @[facility]@ Past Surgical History: @[facility]@ Home Medications: Prior to Admission medications Medication Sig Start Date End Date Taking? Authorizing Provider aspirin 81 MG EC tablet Take 81 mg by mouth daily. Yes Historical Provider, amLODIPine (Norvasc) 5 MG tablet Take 5 mg by mouth before bedtime. Historical Provider, atorvastatin (Lipitor) 40 MG tablet Take 1 tablet (40 mg) by mouth Nightly. 04/20/25 05/20/25 Bita Holland MD cholecalciferol (Vitamin D-3) 25 MCG (1000 UT) capsule Take 1,000 Units by mouth daily. Historical Provider, escitalopram (Lexapro) 10 MG tablet Take 10 mg by mouth daily. Historical Provider, levothyroxine (Synthroid, Levoxyl) 112 MCG tablet Take 112 mcg by mouth every morning (before breakfast). Historical Provider, meclizine (Antivert) 25 MG tablet Take 12.5 mg by mouth in the morning. Historical Provider, Current Hospital Medications: Current Medications[1] Continuous Infusions: Continuous Meds[2] Allergies: Patient has no known allergies. Social History: TOBACCO: reports that she has been smoking cigarettes. She started smoking about 66 years ago. She has a 49.9 pack-year smoking history. She has never used smokeless tobacco. ETOH: reports that she does not currently use alcohol. RECREATIONAL DRUG USE: Social History Substance and Sexual Activity Drug Use Not Currently FamilyHistory: :no pertinent family history identified in this patient [facility]; :A complete review of system was performed , pertinent positives noted and remainderare negative Review of Systems Physical Examination: Patient Vitals for the past 8 hrs: BP Temp Temp src Pulse Resp SpO2 05/29/25 2337 (!) 174/56 -- -- -- -- -- 05/29/25 2330 (!) 193/59 -- -- (!) 45 18 96 % 05/29/25 2311 (!) 179/59 -- -- -- -- -- 05/29/25 2300 (!) 182/68 -- -- (!) 49 17 95 % 05/29/259 -- -- -- (!) 48 20 94 % 05/29/252231 -- 36.3 C (97.4 F) Temporal -- -- -- 05/29/252229 -- -- -- 53 18 96 % 05/29/250 (!) 167/68 -- -- 53 16 95 % 05/29/252129 -- -- -- (!) 48 22 95 % 05/29/252108 -- -- -- 52 21 96 % 05/29/25 2100 134/88 -- -- 50 21 96 % 05/29/252029 -- -- -- 64 16 95 % 05/29/252022 -- 36.3 C (97.3 F) Temporal -- -- -- 05/29/251999 131/87 -- -- 54 21 96 % 05/29/25 1922 -- -- -- 52 -- -- 05/29/25 1900 141/89 -- -- (!) 49 14 94 % 05/29/25 1830 (!) 177/61 -- -- 50 23 96 % 05/29/25 1800 (!) 173/45 -- -- 58 24 92 % 05/29/25 1745 -- -- -- 61 -- 95 % 05/29/25 1730 (!) 142/63 -- -- 56 19 97 % I/O last 3 completed shifts: In: 1500 (17.9 mL/kg) [I.V.:1500 (17.9 mL/kg)] Out: 25 (0.3 mL/kg) [Blood:25] Weight: 83.9 kg General Physical Examination: Physical Exam Constitutional: Appearance: She is ill-appearing. Eyes: General: Lids are normal. Extraocular Movements: Right eye: Abnormal extraocular motion present. Left eye: Abnormal extraocular motion present. Cardiovascular: Rate and Rhythm: Normal rate and regular rhythm. Heart sounds: Normal heart sounds. Pulmonary: Effort: Pulmonary effort is normal. No respiratory distress. Breath sounds: Normal breath sounds. Abdominal: General: Abdomen is flat. There is no distension. Palpations: Abdomen is soft. Tenderness: There is no abdominal tenderness. Skin: Comments: L neck incision from L carotid endarterectomy Neurological: Mental Status: She is alert. Neurological Examination: Higher Functions: Mental Status Exam: Level of Alertness:Awake Orientation: Normal to self, time, place Memory: Normal Fund of Knowledge: Normal Language: Normal Dysarthria present Cranial Nerves: -II Visual acuity: abnormal, limited due to patient unable to perform exam -II Visual sharma: abnormal -III Pupils (~ 4 mm OD, 4 mm OU) equal, round, reactive to light -III-IV- Extraocular Movements: abnormal right sided gaze deviation -Nystagmus not present -Saccades and pursuits normal -V Facial sensation: intact Corneal's left absence -VII Facial strength: intact -VIII Hearing: intact -IX-X- Gag reflex present -X Palate:intact -XI Shoulder shrug: "intact"normal -XII Tongue movement: normal Motor Examination: Tone after evaluation of 4 limbs, the following findings applied: Normal . . -Bulk: normal -Muscle Stretchafter evaluation of all limbs, and axial musculature the following findings applied: Drift: present left upper and lower extremities Sensory Intact to light touch, pain / temperature, proprioception, Coordination: Arms left side dysmetria Legs left side ataxia Tremors not present Gait abnormal, patient unable to walk due to acute circumstances / bedrest / safety concerns NIHSS 1a Level of consciousness: 0=alert; keenly responsive 1b. LOC questions: 0=Performs both tasks correctly 1c. LOC commands: 0=Performs both tasks correctly 2. Best Gaze: 2=forced deviation, or total gaze paresis not overcome by oculocephalic maneuver 3. Visual: 3=Bilateral hemianopia (blind including cortical blindness) 4. Facial Palsy: 1=Minor paralysis (flattened nasolabial fold, asymmetric on smiling) 5a. Motor left arm: 2=Some effort against gravity, limb cannot get to or maintain (if cured) 90 (or 45) degrees, drifts down to bed, but has some effort against gravity 5b. Motor right arm: 0=No drift, limb holds 90 (or 45) degrees for full 10 seconds 6a. motor left le=Drift, limb holds 90 (or 45) degrees but drifts down before full 10 seconds: does not hit bed 6b Motor right le=No drift, limb holds 90 (or 45) degrees for full 10 seconds 7. Limb Ataxia: 1=Present in one limb 8. Sensory: 0=Normal; no sensory loss 9. Best Language: 0=No aphasia, normal 10. Dysarthria: 1=Mild to moderate, patient slurs at least some words and at worst, can be understood with some difficulty 11. Extinction and Inattention: 0=No abnormality 12. Distal motor function: 0=Normal Total: 11 Pre-admission Modified [place] Score: 1 __ 0 No symptoms at all __ 1 No significant disability despite symptoms; able to carry out all usual duties and activities __ 2 Slight disability; unable to carry out all previous activities, but able to look after own affairs without assistance __ 3 Moderate disability; requiring some help, but able to walk without assistance __ 4 Moderately severe disability; unable to walk without assistance and unable to attend to own bodily needs without assistance __ 5 Severe disability; bedridden, incontinent and requiring constant nursing care and attention Ancillary Data: Labs: Recent Results (from the past 24 hours) POCT glucose meter Collection Time: 05/30/25 12:34 AM Result Value Ref Range Glucose 114 (H) 70 - 100 mg/dL No results for input(s): "PH", "PO2", "PCO2", "HCO3", "O2SAT" in the last 72 hours. No lab exists for component: "BE" No results for input(s): "INR" in the last 72 hours. Radiology: CT head: FINDINGS: Ventricles and Extra-axial spaces: Generalized enlargement of the ventricles and sulci is noted. No abnormal extracerebral collection identified. Cerebral and cerebellar parenchyma: Periventricular low attenuation areas are noted bilaterally, most likely white matter small vessel ischemic change. No additional focal mass lesion or evidence for acute infarct is identified throughout the cerebrum or cerebellum. Hemorrhage: None Brainstem: Normal Other: Air-fluid level in the right maxillary sinus. Remaining structures are not evaluated in this rapid assessment for stroke. IMPRESSION: No acute infarct identified. CT perfusion: FINDINGS: CT PERFUSION: Core infarct: Using the threshold of CBF less than 30% (magenta color in RAPID software), there is no core infarct. Total hypoperfusion: Using the threshold of Tmax greater than 6 seconds (green color in RAPID software), there is no hypoperfusion. Tissue at risk (penumbra): The tissue at risk volume (mismatch volume) is 0 ml. The mismatch ratio is not applicable. CTA Neck: Aortic arch and great vessel origins: Atherosclerotic calcification with plaque but no significant stenosis within the aortic arch. Calcified plaque at the origins of the great vessels without severe stenosis. Right common and external carotid: Normal. Right internal carotid: Calcified plaque at the bifurcation with focal stenotic segment at the origin probably the range of at least 60-70 percent luminal narrowing. Patent flow since in the intracranial circulation. Left common and external carotid: Normal. Left internal carotid: There has been carotid endarterectomy since the examination from one week ago. There is no residual significant stenosis. There is some fusiform dilatation over the proximal 2 cm of the internal carotid. Cervical vertebral arteries: Vessels remain patent. The right is larger, therefore dominant. Intracranial arteries: Distal internal carotid arteries: Dense calcification within the distal internal carotid arteries within the cavernous and supraglenoid segments, greater on the left. Degree of stenosis is difficult to determine due to some degree of spatial resolution in the region Anterior cerebral arteries: Normal Middle cerebral arteries: Normal Distal vertebral arteries: Right is unremarkable. Dense calcification within the intracranial distal segment with stenosis probably greater than 60-70 percent luminal narrowing Basilar artery: Normal Posterior cerebral arteries: Normal Anterior communicating artery: Normal Posterior communicating arteries: Normal Aneurysm or vascular malformation: None identified. Neck: There is no evidence for cystic or solid mass within the deep or superficial spaces of the neck. The salivary glands and thyroid are unremarkable. No enlarged cervical lymph nodes. The airway structures demonstrate no abnormality. Upper chest: The lung apices are unremarkable. Osseous structures: Cervical spondylosis particularly at C4-C5, C5-C6 and C6-C7. IMPRESSION: 1. No focal or global perfusion defect. 2. Surgical change within the left internal carotid artery with fusiform dilatation following endarterectomy 3. Persistent significant stenosis in the right proximal internal carotid artery in the range of at least 60-70 percent luminal narrowing 4. Dominant right vertebral artery with diminutive left vertebral artery and significant stenosis within the intracranial segment the left distal vertebral artery. 5. Dense calcified plaque within the distal internal carotid arteries greater on the left. Degree stenosis is difficult to determine in these regions. 6. No intracranial large arterial vessel occlusion. ASSESSMENT Concern for small embolic stroke versus reperfusion injury from L carotid endarterectomy (less likely) 84 year old woman is postop day 1 for a left carotid endarterectomy. She has high-grade stenosis of the bilateral internal carotid arteries. She developed a right MCA syndrome this evening. Imaging shows no perfusion changes or large vessel occlusion. Reperfusion syndrome could be implicated for acute neurologic deficits following endarterectomy, but her symptoms do not localize to the side of treatment. She may have had an embolic shower affecting the right hemisphere from her right ICA. PLAN/RECOMMENDATIONS: - Reperfusion injury less likely due to patient's symptoms consistent with a R sided injury, and endarterectomy was L sided - Thrombolytics contraindicated in setting of L cartoid endarterectomy 05/29/25. This was discussed with vascular surgery team. - Recommend continuation of ASA 81 mg and Plavix 75 mg daily - Recommend permissive HTN with SBP goal of 140-180 - Recommend MRI brain 05/30 - Neurochecks q4 hours Reason for no use of thrombolytic if applicable:Mayor surgery in prior 14 days Reason if no thrombectomy if applicable: not identified vascular occlusion accesable for intervention ICH score: GCS score at presentation:.points ICH volume (ABC/2 cm3): . points Intraventricular hemorrhage: . points Origin of ICH : . points Age: . points Final score :N/A SAH H&H score: __ 1 No symptoms at all. minimal headache and slight nuchal rigidity __ 1 Minimal headache and or slight nuchal rigidity NO FOCAL DEFICITS __ 2 Severe headache or nuchal rigidity, NO Focal neurological deficits EXCEPT for CN palsy __ 3 Drowsiness with minimal neurological deficits __ 4 Stupor; moderate to severe hemiparesis; possible early decerebrate rigidity and vegetative disturbances __ 5 Deep coma; decerebrate rigidity; moribund Final score :N/A Discussed with Dr. Juarez Attending Note: Patient seen and examined by telemedicine with the resident. I reviewed relevant labs and imaging, as outlined above. I agree with the plan as documented, which reflects my edits. [1] Current Facility-Administered Medications: acetaminophen (Tylenol) tablet 650 mg, 650 mg, Oral, q6h PRN, 650 mg at 05/26/25 1451 OR acetaminophen (Tylenol) suppository 650 mg, 650 mg, Rectal, q6h PRN, Kiara Mario MD amLODIPine (Norvasc) tablet 5 mg, 5 mg, Oral, Daily, Kiara Mario MD, 5 mg at 05/29/252017 aspirin EC tablet 81 mg, 81 mg, Oral, Daily, 81 mg at 05/29/25 0806 OR aspirin suppository 300 mg, 300 mg, Rectal, Daily, Kiara Mario MD atorvastatin (Lipitor) tablet 80 mg, 80 mg, Oral, Nightly, Kiara Mario MD, 80 mg at 05/29/252017 bisacodyl (Dulcolax) suppository 10 mg, 10 mg, Rectal, Daily PRN, Kiara Mario MD cholecalciferol (Vitamin D-3) tablet 1,000 Units, 1,000 Units, Oral, Daily, Kiara Mario MD, 1,000 Units at 05/29/25 08 clopidogrel (Plavix) tablet 75 mg, 75 mg, Oral, Daily, Kiara Mario MD, 75 mg at 05/29/25 08 enoxaparin (Lovenox) syringe 40 mg, 40 mg, SubCUTAneous, Daily, Kiara Mario MD, 40 mg at 05/29/25 0808 escitalopram (Lexapro) tablet 10 mg, 10 mg, Oral, Daily, Kiara Mario MD, 10 mg at 05/29/25 0806 hydrALAZINE (Apresoline) injection 10 mg, 10 mg, IntraVENous, q4h PRN, Kiara Mario MD, 10 mg at 05/29/25 2339 labetalol (Normodyne,Trandate) injection 10 mg, 10 mg, IntraVENous, q4h PRN, Kiara Mario MD, 10 mg at 05/29/25 2235 levothyroxine (Synthroid, Levoxyl) tablet 112 mcg, 112 mcg, Oral, qAM AC, Kiara Mario MD, 112 mcg at 05/29/25 0552 losartan (Cozaar) tablet 25 mg, 25 mg, Oral, Daily, Kiara Mario MD, 25 mg at 05/29/25805 meclizine (Antivert) tablet 12.5 mg, 12.5 mg, Oral, Daily, Kiara Mario MD, 12.5 mg at 05/29/25 0806 ondansetron ODT (Zofran-ODT) disintegrating tablet 4 mg, 4 mg, Oral, q8h PRN, 4 mg at 05/24/25 0335 OR [DISCONTINUED] ondansetron (Zofran) injection 4 mg, 4 mg, IntraVENous, q6h PRN, Petrona Taylor, 4 mg at 05/24/25 1234 pantoprazole (ProtoNix) EC tablet 40 mg, 40 mg, Oral, Nightly, 40 mg at 05/29/252017 OR [DISCONTINUED] pantoprazole (ProtoNix) 40 mg in sodium chloride (PF) 0.9 % 10 mL injection, 40 mg, IntraVENous, Nightly, Jas Flores DO polyethylene glycol (PEG) 3350 (Miralax) packet 17 g, 17 g, Oral, Daily PRN, Kiara Mario MD, 17 g at 05/26/25 1103 prochlorperazine (Compazine) tablet 10 mg, 10 mg, Oral, q6h PRN OR prochlorperazine (Compazine) injection 10 mg, 10 mg, IntraVENous, q6h PRN OR prochlorperazine (Compazine) suppository 25 mg, 25 mg, Rectal, q12h PRN, Kiara Mario MD sodium chloride 0.9 % bolus 250 mL, 250 mL, IntraVENous, Once, Yobany Escalante DO sodium chloride 0.9 % infusion, 5-250 mL/hr, IntraVENous, PRN, Kiara Mario MD sodium chloride 0.9 % infusion, 50 mL/hr, IntraVENous, Continuous, Yobany Escalante DO sodium chloride 0.9% (NS) flush 5-40 mL, 5-40 mL, IntraVENous, q12h, Kiara Mario MD, 10 mL at 05/29/25 2018 sodium chloride 0.9% (NS) flush 5-40 mL, 5-40 mL, IntraVENous, PRN, Kiara Mario MD [2] sodium chloride, 50 mL/hr Associated Order(s): IP CONSULT TO OPHTHALMOLOGY OPHTHALMOLOGY CONSULT Date of Service: 05/24/2025 Attending Provider: Jas Flores DO Primary Care Provider: Charlene Walker MD Chief Complaint: Right eye vision loss History of Present illness: Diana is a 84 y.o. female presents with acute right eye vision loss. 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 Patient woke up last Monday with loss of vision in the right eye. The vision loss in the right eye is worse than the vision loss in the left eye. Patient's niece states that they called her retina doctor, Dr. Rojas, but was unable to see him so the patient was seen at the [place] office by Dr. Oliva last Monday. The patient's nephew took her to that appointment. Dr. Oliva thought there was a possibility of Giant Cell arteritis and ordered 4 blood tests. 2 of the 4 blood test were abnormal and Dr. Oliva directed the patient to go to the emergency room immediately because he thought that was enough to warrant treatment for Giant Cell arteritis. Patient has had a stiff neck since Monday. Patient developed a headache today and had an episode of emesis. After vomiting, she feels like it relieved some of the pressure. Denies any focal weakness. History mostly obtained from patient's niece, though did speak to patient's nephew on the phone to ask questions regarding the ophthalmology appointment from last Monday. During that appointment, the patient could not read any letters on the chart in either eye. She could not count fingers. Different scans were done but he does not know what they showed. Review of Systems: Pertinent items are noted in HPI. Medical/Surgical History: Medical History[1] Surgical History[2] Drug Allergies: Allergies[3] Medications: Prescriptions Prior to Admission[4] Social History: Social History Socioeconomic History Marital status: Spouse name: Not on file Number of children: Not on file Years of education: Not on file Highest education level: Not on file Occupational History Not on file Tobacco Use Smoking status: Every Day Current packs/day: 1.00 Average packs/day: 1 pack/day for 17.4 years (17.4 ttl pk-yrs) Types: Cigarettes Start date: 12/18/2007 Smokeless tobacco: Never Substance and Sexual Activity Alcohol use: Not Currently Drug use: Not Currently Sexual activity: Not Currently Other Topics Concern Not on file Social History Narrative Not on file Social Drivers of Health Financial Resource Strain: Low Risk (05/24/2025) Overall Financial Resource Strain (CARDIA) Difficulty of Paying Living Expenses: Not very hard Food Insecurity: No Food Insecurity (05/24/2025) Hunger Vital Sign Worried About Running Out of Food in the Last Year: Never true Ran Out of Food in the Last Year: Never true Transportation Needs: No Transportation Needs (05/24/2025) PRAPARE - Transportation Lack of Transportation (Medical): No Lack of Transportation (Non-Medical): No Physical Activity: Inactive (05/24/2025) Exercise Vital Sign Days of Exercise per Week: 0 days Minutes of Exercise per Session: 0 min Stress: No Stress Concern Present (05/24/2025) [employer] [place] [employer] - Occupational Stress Questionnaire Feeling of Stress : Only a little Social Connections: Unknown (05/24/2025) Social Connection and Isolation Panel [NHANES] Frequency of Communication with Friends and Family: Three times a week Frequency of Social Gatherings with Friends and Family: Three times a week Attends Baptism Services: Patient declined Active Member of Clubs or Organizations: Patient declined Attends Club or Organization Meetings: Patient declined Marital Status: Intimate Partner Violence: Not At Risk (05/24/2025) Humiliation, Afraid, Rape, and Kick questionnaire Fear of Current or Ex-Partner: No Emotionally Abused: No Physically Abused: No Sexually Abused: No Housing Stability: Low Risk (05/24/2025) Housing Stability Vital Sign Unable to Pay for Housing in the Last Year: No Number of Times Moved in the Last Year: 0 Homeless in the Last Year: No Vital Signs: Vitals: 05/24/25 1426 BP: 152/92 Pulse: 74 Resp: 16 Temp: 36.2 C (97.2 F) SpO2: 97% Physical Exam: See Epic Exam Labs/Imaging: Platelets 214 (WNL) 05/23/25 Platelets 253 (WNL) 04/17/25 Sedimentation Rate 10 (WNL) 05/23/25 Sedimentation Rate 16 (WNL) on 04/17/25 C-reactive protein 9.6 (elevated) 05/23/25 C-reactive protein 8.4 (elevated) on 04/17/25 Exam Date/Time: 05/23/2025 21:39 Procedure: CT HEAD NECK ANGIO W AND WO IV CONTRAST Ordering Provider: CONTE FELIX Reason For Exam: right eye vision loss, cartodi stenosis CTA head and neck with and without contrast HISTORY: Right eye vision loss TECHNIQUE: 0.5 mm axial images with and without intravenous contrast, 3-D rendering performed by me on an independent workstation The bilateral anterior, middle, and posterior cerebral arteries are normal. The basilar artery is normal. Calcified atherosclerosis at the origins of bilateral internal carotid arteries. An 80 percent stenosis at the origin of the right internal carotid artery measured using the NASCET criteria. An 80 percent stenosis at the origin of the left internal carotid artery measured using the NASCET criteria. The bilateral vertebral arteries are normal. Shaggy plaques in the aortic arch with an anterior penetrating aortic ulcer. IMPRESSION: An 80 percent stenosis at the origin of the right internal carotid artery. An 80 percent stenosis at the origin of the left internal carotid artery. Shaggy plaques in the aortic arch with an anterior penetrating aortic ulcer. Exam Date/Time: 05/23/2025 20:34 Procedure: CT HEAD WO IV CONTRAST Ordering Provider: GAGE WILLIAM Reason For Exam: Neuro deficit, acute, stroke suspected CT head without contrast History: Weakness Technique: 3 mm axial images through the head without IV contrast Dose reduction was employed with automated exposure control. Comparison: 04/17/2025 There is no evidence of intracranial hemorrhage, extra-axial fluid collection, hydrocephalus, or acute infarct. Chronic white matter ischemic changes. No evidence of a mass of mass affect. The visualized portions of the paranasal sinuses and the mastoid air cells are clear. IMPRESSION: No acute findings. Assessment/Plan: 1. Stroke-like symptoms 2. Bilateral carotid artery stenosis 3. Penetrating ulcer of aorta (CMS/HCC) (HCC) 4. Acute loss of vision, left 5. Acute cerebrovascular accident (CVA) due to ischemia (HCC) The appearance of the retina exam in the right eye is suggestive of a central retina artery occlusion with the classic appearance of the tran red spot. The peripheral retina is attached with more normal coloration. The etiology of central retinal artery occlusion (CRAO) includes a cholesterol, calcium or platelet-fibrin embolus, thrombosis, and Giant Cell Arteritis. Central retinal artery occlusion (CRAO) can be associated with a collagen-vascular disease like systemic lupus or polyarteritis nodosa. A hypercoagulable state such as polycythemia, multiple myeloma, factor visual acuity (V) Leiden, etc. Can be a factor. Rare causes include Bechets, Syphilis, and sickle cell disease. Give the patient's CTA showing 80% stenosis of the bilateral internal carotid arteries, and embolus seems quite likely. Dr. Oliva was concerned for Giant Cell Arteritis. Her CRP is elevated but ESR is normal/low and platelets are normal. These lab tests were similar to the results from testing on 04/17/25 (when she had right eye vision loss) She did not have a headache until today. If there is a concern for giant cell arteritis, please consult general surgery for a temporal artery biopsy and start steroid treatment. The patient presented to the emergency room on 04/17/25 after seeing her umbrella tipper who diagnosed a central retinal artery occlusion per chart review. Time: I spent a total of 80 minutes in critical care counseling/coordinating care and discussing eye exam. I personally examined the patient, and I personally reviewed chart, data, labs radiology reports. I also discussed exam with the patient and her niece. Follow up: Recommend follow-up with patient's retina specialist, Dr. Rojas, in 2-4 weeks. Camille Gomez MD PhD Ophthalmology 05/24/2025 5:03 PM [1] Past Medical History: Diagnosis Date Disease of thyroid gland Hypertension 01/01/2024 [2] Past Surgical History: Procedure Laterality Date CHOLECYSTECTOMY NECK EXPLORATION 01/02/2024 INCISION AND DRAINAGE DEEP ABCESS OR HEMATOMA SOFT TISSUE NECK OR THORAX [3] No Known Allergies [4] Medications Prior to Admission Medication Sig Dispense Refill Last Dose/Taking aspirin 81 MG EC tablet Take 81 mg by mouth daily. 05/23/2025 amLODIPine (Norvasc) 5 MG tablet Take 5 mg by mouth before bedtime. atorvastatin (Lipitor) 40 MG tablet Take 1 tablet (40 mg) by mouth Nightly. 30 tablet 0 cholecalciferol (Vitamin D-3) 25 MCG (1000 UT) capsule Take 1,000 Units by mouth daily. [] clopidogrel (Plavix) 75 MG tablet Take 1 tablet (75 mg) by mouth daily. 30 tablet 0 escitalopram (Lexapro) 10 MG tablet Take 10 mg by mouth daily. levothyroxine (Synthroid, Levoxyl) 112 MCG tablet Take 112 mcg by mouth every morning (before breakfast). meclizine (Antivert) 25 MG tablet Take 12.5 mg by mouth in the morning. Associated Order(s): IP CONSULT TO CARDIOTHORACIC SURGERY Images from the original note were not included. [facility]: Cardiothoracic Surgery Consultation Note PATIENT NAME: Diana Kohli : 1940 (84 y.o.) TODAY'S DATE: 05/24/2025 DATE OF ADMISSION: 05/23/2025 7:45 PM Reason for Consult: penetrating ascending aortic arch ulcer Consulting Provider: Dr. Conte Subjective: CC: vision loss HPI: 84-year-old female who presented to the ED yesterday 05/23/2025 with complaints of right vision loss at 3 AM in the morning. Per EMR charting questionable giant cell inflammation, history of recent stroke where she lost partial vision of her left eye, and known bilateral carotid stenosis. Patient stated she lives alone here in [facility] and her niece takes care of her who lives in [place]. She is still doing all things she needs to be doing (ADLs) and driving daily. She is a current everyday smoker has tried to quit in the past and has no thoughts of quitting now. A CTA of head and neck revealed bilateral 80% carotid artery stenosis and shaggy plaques in the aortic arch with an anterior penetrating aortic ulcer. CTS was consulted due to ascending aortic ulcer. Patient was admitted to [facility] for additional medical workup. Vascular and neurology following. Currently patient is resting in bed tired and fatigued. She denies any current chest pain at this time. Patient getting ready to work with PT. She is a poor historian and is unclear in some of her responses if she understands what is going on with her current medical condition. No other needs at this time a complete ROS was documented below. 05/23/25: CTA head neck angio w/ and w/o IV contrast IMPRESSION: An 80 percent stenosis at the origin of the right internal carotid artery. An 80 percent stenosis at the origin of the left internal carotid artery. Shaggy plaques in the aortic arch with an anterior penetrating aortic ulcer. 04/18/25: CTA head neck angio w/and w/o IV contrast There is significant calcification and soft plaque of the visualized portion of the aortic arch. Review of Systems Constitutional: Positive for fatigue. Negative for appetite change, diaphoresis, fever and unexpected weight change. HENT: Negative for congestion and dental problem. Eyes: Positive for visual disturbance. Negative for pain and redness. Respiratory: Negative for cough, choking, chest tightness, shortness of breath and wheezing. Gastrointestinal: Negative for abdominal distention, abdominal pain, blood in stool, constipation, diarrhea, nausea and vomiting. Endocrine: Negative for cold intolerance and heat intolerance. Genitourinary: Negative for difficulty urinating and frequency. Musculoskeletal: Negative for arthralgias, back pain, gait problem and joint swelling. Skin: Negative for color change, pallor, rash and wound. Allergic/Immunologic: Negative for immunocompromised state. Neurological: Negative for dizziness, seizures, syncope, speech difficulty, weakness, light-headedness and numbness. Hematological: Does not bruise/bleed easily. Psychiatric/Behavioral: Negative for confusion, decreased concentration and sleep disturbance. The patient is not nervous/anxious. Allergies: Patient has no known allergies. Past Medical History: has a past medical history of Disease of thyroid gland and Hypertension (01/01/2024). Past Surgical History: has a past surgical history that includes Cholecystectomy and Neck exploration (01/02/2024). Social History: reports that she has been smoking cigarettes. She started smoking about 17 years ago. She has a 17.4 pack-year smoking history. She has never used smokeless tobacco. She reports that she does not currently use alcohol. She reports that she does not currently use drugs. Family History: family history is not on file. Medications: Prior to Admission medications Medication Sig Start Date End Date Taking? Authorizing Provider aspirin 81 MG EC tablet Take 81 mg by mouth daily. Yes Historical Provider, amLODIPine (Norvasc) 5 MG tablet Take 5 mg by mouth before bedtime. Historical Provider, atorvastatin (Lipitor) 40 MG tablet Take 1 tablet (40 mg) by mouth Nightly. 04/20/25 05/20/25 Bita Holland MD cholecalciferol (Vitamin D-3) 25 MCG (1000 UT) capsule Take 1,000 Units by mouth daily. Historical Provider, clopidogrel (Plavix) 75 MG tablet Take 1 tablet (75 mg) by mouth daily. 04/21/25 05/21/25 Bita Holland MD escitalopram (Lexapro) 10 MG tablet Take 10 mg by mouth daily. Historical Provider, levothyroxine (Synthroid, Levoxyl) 112 MCG tablet Take 112 mcg by mouth every morning (before breakfast). Historical Provider, meclizine (Antivert) 25 MG tablet Take 12.5 mg by mouth in the morning. Historical Provider, Objective: Vitals: BP: 150/75, MAP (mmHg): 100, BP Method: Automatic Heart Rate: 87 Resp: 18 Temp: 36.4 C (97.6 F), Temp Source: Temporal BMI (Calculated): 33.83 Last BM Date: 05/24/25 Intake/Output Summary (Last 24 hours) at 05/24/2025 0858 Last data filed at 05/24/2025 0405 Gross per 24 hour Intake 365.83 ml Output 1 ml Net 364.83 ml Physical Exam Constitutional: General: She is not in acute distress. Appearance: Normal appearance. Cardiovascular: Rate and Rhythm: Normal rate and regular rhythm. Pulses: Normal pulses. Heart sounds: Normal heart sounds. No murmur heard. No friction rub. Pulmonary: Effort: Pulmonary effort is normal. Breath sounds: Normal breath sounds. Abdominal: General: Bowel sounds are normal. Palpations: Abdomen is soft. Tenderness: There is no abdominal tenderness. Musculoskeletal: Right lower leg: No edema. Left lower leg: No edema. Skin: General: Skin is warm and dry. Capillary Refill: Capillary refill takes less than 2 seconds. Neurological: Mental Status: She is alert. Diagnostics: Reviewed in EMR Labs: Reviewed in EMR BMP: Recent Labs 05/23/25210405/24/25313 NA 139 138 K 3.8 3.5 CL 103 107 CO2 26 22* BUN 16 14 CREATININE 1.42* 1.18* CALCIUM 9.5 9.0 MG 2.3 2.0 CBC: Recent Labs 05/23/25 1559 05/23/25210405/24/254 WBC 8.1 9.8 14.2* HGB 14.9 15.7 14.7 HCT 45.2 47.4* 43.1 PLT 206 244 214 MCV 93.4 93.5 90.9 RDW 12.9 13.0 13.0 Assessment: Ascending Aortic Ulcer Bilateral carotid stenosis HTN Plan: No acute surgical intervention at this time -Recommend good BP control help reduce stress on aortic wall- patient on CCB -Patient will need full aorta eval to fully assess ascending and descending Just received contrast yesterday - SCr downtrending *if* surgical intervention need would be open aortic surgery with replacement of possible root + ascending Surgery would likely have high risk mortality given comorbidity and age with extensive recovery This would need to be discussed thoroughly with patient and family -Smoking cessation - patient currently refusing to quit -Vascular following - Bilateral carotid stenosis Will discuss with earth observations chief scientist CT Surgeon Home meds: ASA, lexapro, antivert, atorvastatin, amlodipine, plavix, levothyroxine Personally Reviewed: [x]Epic notes [x]Radiology studies [x]Labs [x]EKG []Other A total of 41 minutes were spent between the [id number] encounter, physical exam, reviewing the medical history, coordinating the patient's care, counseling/educating the patient, ordering medications/test/procedures, interpreting results and documenting clinical information in the patients electronic health record on the day of the encounter. The patient was seen and examined independently and relevant data reviewed by myself. A full chart review was performed. Cosigned by Ken Montemayor MD at 05/26/2025 1:25 PM EDT Associated attestation - Ken Montemayor MD - 05/26/2025 1:25 PM EDT This 84-year-old frail patient had incidental finding of a penetrating ulcer within the aortic arch. She also has severe peripheral vascular disease and presented with partial vision loss of the left eye. She has known bilateral carotid stenosis. I reviewed her CT scan did independently evaluation. She has multiple irregularities of her aorta with multiple areas of ulceration and atherosclerotic disease. I do not believe that surgical intervention is warranted. Recommend conservative/nonoperative management. Given the location and extent of her atherosclerotic disease burden, surgery would be associated with a very high risk for complications. DOS: 05-24-25 I personally performed a [id number] diagnostic evaluation on this patient I agree with the findings and plan of care as documented by the [facility] or resident. There has been no change in the physical exam or findings unless otherwise noted below. A total of 65 minutes were spent between the [id number] encounter, physical exam, reviewing the medical history, coordinating the patient's care, counseling/educating the patient, ordering medications/test/procedures, interpreting results and documenting clinical information in the patients electronic health record on the day of the encounter. The patient was seen and examined independently and relevant data reviewed by myself. A full chart review was performed. Associated Order(s): IP CONSULT TO VASCULAR SURGERY Vascular Surgery Consultation Note Reason for Consult: bilateral carotid artery disease, consideration of intervention HISTORY OF PRESENT ILLNESS: The patient is a 84 y.o. female who is admitted to the hospital for treatment of right eye vision changes. 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 Patient was recently admitted 04/18-04/20 with concerns for left retinal artery occlusion and was discharged on atorvastatin and clopidogrel. She was noted to have 60% stenosis of her bilateral ICAs at the time. Patient presented to the ED last night with right-sided vision loss. She endorses only being able to see about a foot in front of her face. No syncope, weakness, dizziness, headache, or slurring. Vascular surgery is consulted for evaluation and treatment. IMPRESSION: 84 year old female with bilateral carotid artery disease and ascending aortic ulcer with vision changes RECOMMENDATIONS: - No acute vascular intervention - Carotid duplex to further evaluate - Continue DAPT - Rest of care per primary Discussed with Dr. Vitale Medical History[1] Surgical History[2] Current Medications: Continuous Meds[3] PRN Meds[4] Scheduled Meds[5] Allergies: Patient has no known allergies. Social History Socioeconomic History Marital status: Spouse name: Not on file Number of children: Not on file Years of education: Not on file Highest education level: Not on file Occupational History Not on file Tobacco Use Smoking status: Every Day Current packs/day: 1.00 Average packs/day: 1 pack/day for 17.4 years (17.4 ttl pk-yrs) Types: Cigarettes Start date: 12/18/2007 Smokeless tobacco: Never Substance and Sexual Activity Alcohol use: Not Currently Drug use: Not Currently Sexual activity: Not Currently Other Topics Concern Not on file Social History Narrative Not on file Social Drivers of Health Financial Resource Strain: Low Risk (05/24/2025) Overall Financial Resource Strain (CARDIA) Difficulty of Paying Living Expenses: Not very hard Food Insecurity: No Food Insecurity (05/24/2025) Hunger Vital Sign Worried About Running Out of Food in the Last Year: Never true Ran Out of Food in the Last Year: Never true Transportation Needs: No Transportation Needs (05/24/2025) PRAPARE - Transportation Lack of Transportation (Medical): No Lack of Transportation (Non-Medical): No Physical Activity: Inactive (05/24/2025) Exercise Vital Sign Days of Exercise per Week: 0 days Minutes of Exercise per Session: 0 min Stress: No Stress Concern Present (05/24/2025) [employer] [place] [employer] - Occupational Stress Questionnaire Feeling of Stress : Only a little Social Connections: Unknown (05/24/2025) Social Connection and Isolation Panel [NHANES] Frequency of Communication with Friends and Family: Three times a week Frequency of Social Gatherings with Friends and Family: Three times a week Attends Baptism Services: Patient declined Active Member of Clubs or Organizations: Patient declined Attends Club or Organization Meetings: Patient declined Marital Status: Intimate Partner Violence: Not At Risk (05/24/2025) Humiliation, Afraid, Rape, and Kick questionnaire Fear of Current or Ex-Partner: No Emotionally Abused: No Physically Abused: No Sexually Abused: No Housing Stability: Low Risk (05/24/2025) Housing Stability Vital Sign Unable to Pay for Housing in the Last Year: No Number of Times Moved in the Last Year: 0 Homeless in the Last Year: No Family History[6] REVIEW OF SYSTEMS: The chart was reviewed. Review of Systems Constitutional: Negative for chills and fever. HENT: Negative for sore throat and trouble swallowing. Eyes: Positive for visual disturbance. Negative for pain. Respiratory: Negative for shortness of breath and wheezing. Cardiovascular: Negative for chest pain and palpitations. Gastrointestinal: Negative for abdominal pain and nausea. Genitourinary: Negative for difficulty urinating and dysuria. Musculoskeletal: Negative for arthralgias and myalgias. Skin: Negative for color change and wound. Neurological: Negative for syncope and facial asymmetry. Psychiatric/Behavioral: Negative for confusion and hallucinations. LABS: Lab Results Component Value Date CREATININE 1.18 (H) 05/24/2025 Lab Results Component Value Date WBC 14.2 (H) 05/24/2025 HGB 14.7 05/24/2025 HCT 43.1 05/24/2025 MCV 90.9 05/24/2025 PLT 214 05/24/2025 Lab Results Component Value Date INR 1.0 05/23/2025 INR 1.0 04/18/2025 INR 1.0 12/29/2023 PROTIME 10.2 05/23/2025 PROTIME 10.6 04/18/2025 PROTIME 10.6 12/29/2023 No results found for: "VLDL" PHYSICAL EXAM: Vitals: 05/24/25 0543 BP: 150/75 Pulse: 87 Resp: 18 Temp: 36.4 C (97.6 F) SpO2: 94% Physical Exam Constitutional: General: She is not in acute distress. Appearance: She is obese. HENT: Head: Normocephalic. Mouth/Throat: Mouth: Mucous membranes are moist. Cardiovascular: Pulses: Normal pulses. Pulmonary: Effort: Pulmonary effort is normal. Breath sounds: Normal breath sounds. Abdominal: Palpations: Abdomen is soft. Musculoskeletal: General: Normal range of motion. Cervical back: Normal range of motion and neck supple. Skin: General: Skin is warm and dry. Neurological: General: No focal deficit present. Mental Status: She is alert and oriented to person, place, and time. Psychiatric: Mood and Affect: Mood normal. Behavior: Behavior normal. LABS: Lab Results Component Value Date WBC 14.2 (H) 05/24/2025 HGB 14.7 05/24/2025 HCT 43.1 05/24/2025 PLT 214 05/24/2025 PROTIME 10.2 05/23/2025 INR 1.0 05/23/2025 K 3.5 05/24/2025 BUN 14 05/24/2025 CREATININE 1.18 (H) 05/24/2025 VASCULAR TESTING: CTA 05/23/25 IMPRESSION: An 80 percent stenosis at the origin of the right internal carotid artery. An 80 percent stenosis at the origin of the left internal carotid artery. Shaggy plaques in the aortic arch with an anterior penetrating aortic ulcer. . [1] Past Medical History: Diagnosis Date Disease of thyroid gland Hypertension 01/01/2024 [2] Past Surgical History: Procedure Laterality Date CHOLECYSTECTOMY NECK EXPLORATION 01/02/2024 INCISION AND DRAINAGE DEEP ABCESS OR HEMATOMA SOFT TISSUE NECK OR THORAX [3] sodium chloride, 50 mL/hr, Last Rate: Stopped (05/24/25 0034) sodium chloride, 50 mL/hr, Last Rate: 50 mL/hr (05/24/25 0544) [4] PRN medications: acetaminophen OR acetaminophen, bisacodyl, labetalol, ondansetron ODT OR ondansetron, polyethylene glycol (PEG) 3350, sodium chloride, sodium chloride 0.9% [5] amLODIPine, 5 mg, Oral, Daily aspirin, 81 mg, Oral, Daily Or aspirin, 300 mg, Rectal, Daily aspirin, 81 mg, Oral, Daily atorvastatin, 40 mg, Oral, Nightly cholecalciferol, 1,000 Units, Oral, Daily enoxaparin, 40 mg, SubCUTAneous, Daily escitalopram, 10 mg, Oral, Daily levothyroxine, 112 mcg, Oral, qAM AC meclizine, 12.5 mg, Oral, Daily sodium chloride 0.9%, 5-40 mL, IntraVENous, q12h [6] No family history on file. Cosigned by Janeth Vitale MD at 05/24/2025 10:31 AM EDT Associated attestation - Janeth Vitale MD - 05/24/2025 10:31 AM EDT I saw and evaluated the patient. I agree with the findings and plan of care as documented in the resident s note unless otherwise noted below. Patient admitted in the beginning of April with what sounds like amaurosis fugax of the left eye. Vascular surgery was not asked to see the patient at that time. CTA performed at that time was read by radiologist as "60% stenosis" of the left carotid and 40% of the right. No carotid duplex was performed. The patient was discharged home at that time. She presented now with right eye amaurosis fugax (she describes the vision as "kind of blurry"). She denies any arm or leg weakness. She denies any slurred speech. CTA performed in this admission read by radiologist as 80% stenosis bilaterally. Upon my reviewed of the CTA, there has been no change in the appearance of the carotid disease. It is unclear the true degree of stenosis however it appears to me as >70% on the left and <60% on the right. Given the bilateral nature of her symptoms, this is more likely related to her aortic arch disease than her carotid arteries. CTA showed penetrating aortic ulceration and a "shaggy" aorta. CT surgery following as well and plans to complete aortic imaging. Plan for carotid duplex. Will follow. Associated Order(s): IP CONSULT TO NEUROLOGY INITIAL CONSULT NOTE. STROKE SERVICE Patient Name: Diana Kohli Patient : 1940 Acct: [id number] Date of Admission: 05/23/2025 Room/Bed: [facility]/[address] PCP: Charlene Walker MD History of Present Ilness: 84 y.o. is right-handed female with the chief Complaint of: R-side vision loss 05/23 at 3am - Complaint: Now can only see about a foot infront of her face. - Evolution: Acute onset, now progressed to only making out shadows close to her face. - Associated symptoms: Temporal headaches intermittently. She denies any other focal neurologic deficits, weakness, dizziness, numbness/tingling. - This occurred in the setting of: She woke up at 3am to go to the bathroom, noted R-sided vision loss. Prior to coming into the hospital, she did see a umbrella tipper who was concerned for giant cell arteritis however on presentation to the ER she denies no significant headache, temporal pain etc. In the ER, BP was 232/112. Hydralazine 10mg IV was given w/gradual drop in BP to 136/82. This morning BP was 150/75. TSH 1.09 CTH: Cerebral atrophy, no acute stroke CTA H+N: Independent review of stenosis compared to 04/18 does not show significant increase in stenosis, and bilateral stenosis of ICA was present on that imaging as well. Concern for aortic anterior penetrating aortic ulcer noted as well. Echo 04/18/25: Left Ventricle: Left ventricle size is normal. Mildly increased wall thickness. Normal left ventricular systolic function. EF by 2D Simpsons Biplane is 55%. Normal wall motion. Right Ventricle: Right ventricle size is normal. Normal systolic function. Pericardium: Evidence of prominent epicardial fat. No pericardial effusion. No significant valvular abnormalities. Technically difficult study. Of note, pt was just recently hospitalized early last month for the same complaints but in the L eye. At that time, ophthalmology had diagnosed a central retinal artery occlusion, and sent to her to ER. MRI was negative for acute or chronic appearing strokes, but CTA H+N demonstrated 60% stenosis of L ICA. Plan was for pt to follow w/[facility] for L ICA stent (scheduled 06/02), and DAPT was initiated w/ASA+Plavix for further prevention. LDL was 105 on Lipitor 40mg, A1c was 5.6, and amlodipine was increased from 5->10mg for HTN w/SBP 190-180s. 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 She started smoking about 17 years ago. She has a 17.3 pack-year smoking history. She has never used smokeless tobacco. Home Medications: Prior to Admission medications Medication Sig Start Date End Date Taking? Authorizing Provider aspirin 81 MG EC tablet Take 81 mg by mouth daily. Yes Historical Provider, amLODIPine (Norvasc) 5 MG tablet Take 5 mg by mouth before bedtime. Historical Provider, atorvastatin (Lipitor) 40 MG tablet Take 1 tablet (40 mg) by mouth Nightly. 04/20/25 05/20/25 Bita Holland MD cholecalciferol (Vitamin D-3) 25 MCG (1000 UT) capsule Take 1,000 Units by mouth daily. Historical Provider, clopidogrel (Plavix) 75 MG tablet Take 1 tablet (75 mg) by mouth daily. 04/21/25 05/21/25 Bita Holland MD escitalopram (Lexapro) 10 MG tablet Take 10 mg by mouth daily. Historical Provider, levothyroxine (Synthroid, Levoxyl) 112 MCG tablet Take 112 mcg by mouth every morning (before breakfast). Historical Provider, meclizine (Antivert) 25 MG tablet Take 12.5 mg by mouth in the morning. Historical Provider, Current Hospital Medications: Current Medications[1] Continuous Infusions: Continuous Meds[2] Allergies: Patient has no known allergies. Social History: TOBACCO: reports that she has been smoking cigarettes. She started smoking about 17 years ago. She has a 17.4 pack-year smoking history. She has never used smokeless tobacco. ETOH: reports that she does not currently use alcohol. RECREATIONAL DRUG USE: Social History Substance and Sexual Activity Drug Use Not Currently ROS; ^As described above Physical Examination: Patient Vitals for the past 8 hrs: BP Temp Temp src Pulse Resp SpO2 Height Weight 05/24/25 0543 150/75 36.4 C (97.6 F) Temporal 87 18 94 % -- -- 05/24/25 0251 -- -- -- -- -- -- 5' 2.01" (1.575 m) 185 lb (83.9 kg) 05/24/25 0237 136/82 -- -- -- -- -- -- -- 05/24/25 0223 -- 36.4 C (97.6 F) Temporal 86 18 93 % -- -- 05/24/25 0037 (!) 172/101 -- -- 88 18 100 % -- -- I/O last 3 completed shifts: In: 365.8 (4.4 mL/kg) [I.V.:115.8 (1.4 mL/kg); IV Piggyback:250] Out: 1 (0 mL/kg) [Stool:1] Weight: 83.9 kg General Physical Examination: General: Awake, alert, oriented x4 HEENT:Normocephalic, atraumaticl, pt unable to see provider unless very close to her face. CV: S1+S2, RRR, no MRG. Pulm:CTA b/l, unlabored Abdomen: Soft NT/ND. BS + Skin: Intact without ulcers, breakdowns or discoloration Extremities: normal with no edema or cyanosis Orthopedic limitation; N/A Pulses: Intact peripherally Carotid auscultation :bruit bilaterally Neurological Examination: Higher Functions: Mental Status Exam: Level of Alertness:Awake Orientation: Normal to self, time, place Memory: Abnormal Fund of Knowledge: Normal Language: Normal Dysarthria not present Cranial Nerves: -II Visual acuity: Very poor, pt minimally able to see glasses but not nose when provider face was close enough for fundoscopic exam. -II Visual sharma: Could not be tested. -III Pupils (~ 1.5 mm OD, 1.5 mm OU) equal, round, reactive to light -III-IV- Extraocular Movements: Not tracking -Nystagmus not tracking -Saccades and pursuits not tracking -V Facial sensation: intact -VII Facial strength: intact -VIII Hearing: abnormal mildly hard of hearing, baseline -IX-X- Gag reflex not tested -X Palate:intact -XI Shoulder shrug: "intact"normal -XII Tongue movement: normal Funduscopic Exam: Does not appear to have a retinal occlusion in the R eye, retina is pale in L eye and more erythematous in R eye Motor Examination: Tone after evaluation of 4 limbs, the following findings applied: Normal -Bulk: generalized atrophy due to malnourishment anddeconditioning -Muscle Stretchafter evaluation of all limbs, and axial musculature the following findings applied: Drift: absent -Reflexes: after evaluation of 4 limbs, the following findings applied ; normal all limbs Sensory Intact to light touch, pain / temperature, proprioception, Coordination: Arms Pt could not perform finger to nose test 2/2 vision Legs Intact heel knee butler testing Tremors not present Gait Not tested NIH Stroke Score: 1A: Level of Consciousness [x] Alert; keenly responsive 0 [] Arouses to minor stimulation +1 [] Requires repeated stimulation to arouse +2 [] Movements to Pain +2 [] Postures or Unresponsive +3 1B: Ask Month and Age [x] Both Questions Right 0 [] 1 Question Right +1 [] 0 Questions Right +2 [] Dysarthric/Intubated/ Trauma/Language Barrier +1 [] Aphasic +2 1C: 'Blink Eyes' & 'Squeeze Hands' [x] Performs Both Tasks 0 [] Performs 1 Task+1 [] Performs 0 Tasks+2 2: Horizontal Extraocular Movements [x] Normal 0 [] Partial Gaze Palsy: Can Be Overcome +1 [] Partial Gaze Palsy: Corrects with Oculocephalic Reflex +1 [] Forced Gaze Palsy: Cannot Be Overcome +2 3: Visual Sharma [] No Visual Loss 0 [] Partial Hemianopia +1 [] Complete Hemianopia +2 [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 +3 [] Bilateral Hemianopia +3 4: Test Facial Palsy (Use Grimace if Obtunded) [x] Normal symmetry 0 [] Minor paralysis (flat nasolabial fold, smile asymetry) +1 [] Partial paralysis (lower face) +2 [] Unilateral Complete paralysis (upper/lower face) +3 [] Bilateral Complete paralysis (upper/lower face) +3 5A: Left Arm Motor [] Amputation/Joint Fusion 0 [x] No Drift for 10 Seconds 0 [] Drift, but doesn't hit bed +1 [] Drift, hits bed +2 [] Some Effort Against Sunflower +2 [] No Effort Against Sunflower +3 [] No Movement +4 5B: Right Arm Motor [] Amputation/Joint Fusion 0 [x] No Drift for 10 Seconds 0 [] Drift, but doesn't hit bed +1 [] Drift, hits bed +2 [] Some Effort Against Sunflower +2 [] No Effort Against Sunflower +3 [] No Movement +4 6A: Left Leg Motor [] Amputation/Joint Fusion 0 [x] No Drift for 5 Seconds 0 [] Drift, but doesn't hit bed +1 [] Drift, hits bed +2 [] Some Effort Against Sunflower +2 [] No Effort Against Sunflower +3 [] No Movement +4 6B: Right Leg Motor [] Amputation/Joint Fusion 0 [x] No Drift for 5 Seconds 0 [] Drift, but doesn't hit bed +1 [] Drift, hits bed +2 [] Some Effort Against Sunflower +2 [] No Effort Against Sunflower +3 [] No Movement +4 7: Limb Ataxia [] Amputation/Joint Fusion 0 [] Does Not Understand 0 [] Paralyzed 0 [x] No Ataxia 0 [] Ataxia in 1 Limb +1 [] Ataxia in 2 Limbs +2 8: Sensation [x] Normal; No sensory loss 0 [] Mild-Moderate Loss: Less Sharp/More Dull +1 [] Mild-Moderate Loss: Can Sense Being Touched +1 [] Complete Loss: Cannot Sense Being Touched At All +2 [] No Response and Quadriplegic +2 [] Coma/Unresponsive +2 9: Language/Aphasia [x] Normal; No aphasia 0 [] Mild-Moderate Aphasia: Some Obvious Changes, Without Significant Limitation +1 [] Severe Aphasia: Fragmentary Expression, Inference Needed, Cannot Identify materials +2 [] Mute/Global Aphasia: No Usable Speech/Auditory Comprehension +3 [] Coma/Unresponsive +3 10: Dysarthria [] Intubated/Unable to Test 0 [x] Normal 0 [] Mild-Moderate Dysarthria: Slurring but can be understood +1 [] Severe Dysarthria: Unintelligble Slurring or Out of Proportion to Dysphasia +2 [] Mute/Anarthric +2 11: Extinction/Inattention [x] No abnormality 0 [] Visual/tactile/auditory/spatial/perso nal inattention +1 [] Extinction to bilateral simultaneous stimulation +1 [] Profound rasheeda-inattention (ex: does not recognize own hand) +2 [] Extinction to >1 modality +2 NIH score is 3. Results Labs: Last 24hrs Recent Results (from the past 24 hours) C-reactive protein Collection Time: 05/23/25 3:59 PM Result Value Ref Range C REACTIVE PROTEIN 9.6 (H) <5.0 mg/L Fibrinogen Collection Time: 05/23/25 3:59 PM Result Value Ref Range FIBRINOGEN 544 (H) 200 - 400 mg/dL CBC auto differential Collection Time: 05/23/25 3:59 PM Result Value Ref Range Auto WBC 8.1 3.6 - 10.7 10*3/uL RBC 4.84 3.80 - 5.20 10*6/uL Hemoglobin 14.9 11.7 - 16.0 g/dL Hematocrit 45.2 35.0 - 47.0 % MCV 93.4 77.0 - 99.0 fL MCH 30.8 26.0 - 34.0 pg MCHC 33.0 30.5 - 36.0 % RDW 12.9 11.5 - 15.0 % Platelets 206 140 - 440 10*3/uL MPV 9.6 9.0 - 12.7 fL nRBC 0.0 0.0 - 2.0 /100 WBCs Neutrophils Relative 74.9 38.0 - 82.0 % Lymphocytes Relative 17.0 15.0 - 45.0 % Monocytes Relative 5.5 5.0 - 13.0 % Eosinophils Relative 2.2 0.0 - 6.0 % Basophils Relative 0.2 0.0 - 2.0 % Immature Grans % 0.2 0.0 - 2.0 % Neutrophils Absolute 6.1 1.8 - 7.5 10*3/uL Lymphocytes Absolute 1.4 1.0 - 4.3 10*3/uL Monocytes Absolute 0.5 0.0 - 0.9 10*3/uL Eosinophils Absolute 0.2 0.0 - 0.5 10*3/uL Basophils Absolute 0.0 0.0 - 0.2 10*3/uL Immature Grans Absolute 0.0 <0.1 10*3/uL Sedimentation rate, automated Collection Time: 05/23/25 3:59 PM Result Value Ref Range Sed Rate 10 0 - 20 mm/hr ECG 12 lead if not already done by Squad Collection Time: 05/23/25 8:07 PM Result Value Ref Range Heart Rate 69 bpm QRSD Interval 88 ms QT Interval 501 ms QTC Interval 537 ms P [place] 46 degrees QRS [place] 43 degrees T Wave [place] 65 degrees TX Interval 191 ms POCT glucose meter Collection Time: 05/23/25 8:32 PM Result Value Ref Range Glucose 105 (H) 70 - 100 mg/dL CBC auto differential Collection Time: 05/23/25 9:05 PM Result Value Ref Range Auto WBC 9.8 3.6 - 10.7 10*3/uL RBC 5.07 3.80 - 5.20 10*6/uL Hemoglobin 15.7 11.7 - 16.0 g/dL Hematocrit 47.4 (H) 35.0 - 47.0 % MCV 93.5 77.0 - 99.0 fL MCH 31.0 26.0 - 34.0 pg MCHC 33.1 30.5 - 36.0 % RDW 13.0 11.5 - 15.0 % Platelets 244 140 - 440 10*3/uL MPV 9.5 9.0 - 12.7 fL nRBC 0.0 0.0 - 2.0 /100 WBCs Neutrophils Relative 69.3 38.0 - 82.0 % Lymphocytes Relative 20.1 15.0 - 45.0 % Monocytes Relative 7.2 5.0 - 13.0 % Eosinophils Relative 2.8 0.0 - 6.0 % Basophils Relative 0.4 0.0 - 2.0 % Immature Grans % 0.2 0.0 - 2.0 % Neutrophils Absolute 6.8 1.8 - 7.5 10*3/uL Lymphocytes Absolute 2.0 1.0 - 4.3 10*3/uL Monocytes Absolute 0.7 0.0 - 0.9 10*3/uL Eosinophils Absolute 0.3 0.0 - 0.5 10*3/uL Basophils Absolute 0.0 0.0 - 0.2 10*3/uL Immature Grans Absolute 0.0 <0.1 10*3/uL Serial Troponin, High Sensitivity Collection Time: 05/23/25 9:05 PM Result Value Ref Range Troponin HS Serial Baseline 9 <=14 ng/L PROTIME/INR & PTT Collection Time: 05/23/25 9:05 PM Result Value Ref Range PROTHROMBIN TIME 10.2 9.0 - 12.0 s INR 1.0 0.9 - 1.1 APTT 27.9 20.0 - 30.5 s Magnesium Collection Time: 05/23/25 9:05 PM Result Value Ref Range MAGNESIUM 2.3 1.6 - 2.6 mg/dL TSH Collection Time: 05/23/25 9:05 PM Result Value Ref Range THYROID STIMULATING HORMONE 1.09 0.35 - 4.94 uIU/mL Comprehensive metabolic panel Collection Time: 05/23/25 9:05 PM Result Value Ref Range SODIUM 139 136 - 145 mmol/L POTASSIUM 3.8 3.5 - 5.1 mmol/L CHLORIDE 103 98 - 107 mmol/L CARBON DIOXIDE 26 23 - 31 mmol/L ANION GAP 10 3 - 13 mmol/L UREA NITROGEN 16 9 - 23 mg/dL CREATININE 1.42 (H) 0.57 - 1.11 mg/dL GLUCOSE 103 82 - 115 mg/dL CALCIUM 9.5 8.8 - 10.0 mg/dL AST (SGOT) 24 <34 U/L ALT 18 <30 U/L ALKALINE PHOSPHATASE 209 (H) 40 - 150 U/L ALBUMIN 3.7 3.4 - 4.8 g/dL BILIRUBIN, TOTAL 1.0 <1.2 mg/dL TOTAL PROTEIN 7.4 6.4 - 8.3 g/dL eGFR 37.0 (L) >60.0 mL/min/1.73m*2 Complete Urinalysis with reflex to Culture Collection Time: 05/23/25 11:08 PM Result Value Ref Range Color, Urine Colorless Lt. Yellow Clarity, Urine Clear Clear pH, Urine 7.5 5.0 - 8.0 pH Leukocytes, Urine Negative Negative Lorie/uL Nitrite, Urine Negative Negative Protein, Urine Negative Negative mg/dL Glucose, Urine Normal Normal (<70) mg/dL Bilirubin, Urine Negative Negative mg/dL Ketones, Urine Negative Negative mg/dL Urobilinogen, Urine Normal Normal (0-1) mg/dL Blood, Urine Negative Negative mg/dL SPECIFIC GRAVITY OF URINE (NUMERIC) 1.016 1.005 - 1.030 Troponin, High Sensitivity, Serial, Second Test Collection Time: 05/23/25 11:09 PM Result Value Ref Range 2h Troponin HS (Serial 2nd Troponin) 9 <=14 ng/L CBC Collection Time: 05/24/25 3:14 AM Result Value Ref Range Auto WBC 14.2 (H) 3.6 - 10.7 10*3/uL RBC 4.74 3.80 - 5.20 10*6/uL Hemoglobin 14.7 11.7 - 16.0 g/dL Hematocrit 43.1 35.0 - 47.0 % MCV 90.9 77.0 - 99.0 fL MCH 31.0 26.0 - 34.0 pg MCHC 34.1 30.5 - 36.0 % RDW 13.0 11.5 - 15.0 % Platelets 214 140 - 440 10*3/uL MPV 9.5 9.0 - 12.7 fL Comprehensive metabolic panel Collection Time: 05/24/25 3:14 AM Result Value Ref Range SODIUM 138 136 - 145 mmol/L POTASSIUM 3.5 3.5 - 5.1 mmol/L CHLORIDE 107 98 - 107 mmol/L CARBON DIOXIDE 22 (L) 23 - 31 mmol/L ANION GAP 9 3 - 13 mmol/L UREA NITROGEN 14 9 - 23 mg/dL CREATININE 1.18 (H) 0.57 - 1.11 mg/dL GLUCOSE 135 (H) 82 - 115 mg/dL CALCIUM 9.0 8.8 - 10.0 mg/dL AST (SGOT) 21 <34 U/L ALT 13 <30 U/L ALKALINE PHOSPHATASE 180 (H) 40 - 150 U/L ALBUMIN 3.2 (L) 3.4 - 4.8 g/dL BILIRUBIN, TOTAL 1.2 (H) <1.2 mg/dL TOTAL PROTEIN 6.3 (L) 6.4 - 8.3 g/dL eGFR 46.2 (L) >60.0 mL/min/1.73m*2 Magnesium Collection Time: 05/24/25 3:14 AM Result Value Ref Range MAGNESIUM 2.0 1.6 - 2.6 mg/dL Lipid panel Collection Time: 05/24/25 3:14 AM Result Value Ref Range TRIGLYCERIDE 45 <150 mg/dL CHOLESTEROL 106 <200 mg/dL HDL CHOLESTEROL 46 (L) >=60 mg/dL CHOL/HDL 2 VERY LOW DENSITY LIPOPROTEIN, CALCULATED 9 <=30 mg/dL NON-HDL CHOLESTEROL, CALCULATED 60 <130 LOW DENSITY LIPOPROTEIN 51 0 - <100 mg/dL Since admission: Recent Labs 05/24/25 0314 ALKPHOS 180* ALT 13 AST 21 BILITOT 1.2* Coagulation: Recent Labs 05/23/25 2105 INR 1.0 Stroke Specific: Lipids: Recent Labs 05/24/25 0314 CHOL 106 TRIG 45 HDL 46* HgA1c: 5.6 Radiology Personal review: CTH: Cerebral atrophy, no acute stroke CTA H+N: Independent review of stenosis compared to 04/18 does not show significant increase in stenosis, and bilateral stenosis of ICA was present on that imaging as well. Concern for aortic anterior penetrating aortic ulcer noted as well. Echo 04/18/25: Left Ventricle: Left ventricle size is normal. Mildly increased wall thickness. Normal left ventricular systolic function. EF by 2D Simpsons Biplane is 55%. Normal wall motion. Right Ventricle: Right ventricle size is normal. Normal systolic function. Pericardium: Evidence of prominent epicardial fat. No pericardial effusion. No significant valvular abnormalities. Technically difficult study. ASSESSMENT / PLAN / SUGGESTIONS : - Acute vision loss of R eye, funduscopic exam not consistent with retinal artery occlusion. - Temporal headache w/o significant tenderness, consideration of GCA but ESR/CRP are not at levels consistent with this diagnosis. 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 Consult vascular surgery regarding bilateral carotid artery stenosis. - SBP goal is to avoid <130, but OK up to max of 180. Can change range if pt becomes symptomatic. Complex 2/2 ICA stenosis but aortic root penetrating ulcer. - Stroke risk factor modification: LDL <70, currently 51. A1c 5.6. TSH 1.09 WNL. Patient seen and discussed with Dr. Goode [1] Current Facility-Administered Medications: acetaminophen (Tylenol) tablet 650 mg, 650 mg, Oral, q6h PRN, 650 mg at 05/24/25 0335 OR acetaminophen (Tylenol) suppository 650 mg, 650 mg, Rectal, q6h PRN, Rik Bah, CLAUDETTE amLODIPine (Norvasc) tablet 5 mg, 5 mg, Oral, Daily, Nicho Jimenez, aspirin EC tablet 81 mg, 81 mg, Oral, Daily OR aspirin suppository 300 mg, 300 mg, Rectal, Daily, Petrona M Dials aspirin EC tablet 81 mg, 81 mg, Oral, Daily, Petrona M Dials atorvastatin (Lipitor) tablet 40 mg, 40 mg, Oral, Nightly, Petrona M Dials, 40 mg at 05/24/25 0033 bisacodyl (Dulcolax) suppository 10 mg, 10 mg, Rectal, Daily PRN, Petrona M Dials cholecalciferol (Vitamin D-3) tablet 1,000 Units, 1,000 Units, Oral, Daily, Petrona M Dials enoxaparin (Lovenox) syringe 40 mg, 40 mg, SubCUTAneous, Daily, Petrona M Dials escitalopram (Lexapro) tablet 10 mg, 10 mg, Oral, Daily, Petrona M Dials labetalol (Normodyne,Trandate) injection 5 mg, 5 mg, IntraVENous, q2h PRN, Nicho Jimenez, levothyroxine (Synthroid, Levoxyl) tablet 112 mcg, 112 mcg, Oral, qAM AC, Petrona M Dials, 112 mcg at 05/24/25 0544 meclizine (Antivert) tablet 12.5 mg, 12.5 mg, Oral, Daily, Petrona M Dials ondansetron ODT (Zofran-ODT) disintegrating tablet 4 mg, 4 mg, Oral, q8h PRN, 4 mg at 05/24/25 2920 OR ondansetron (Zofran) injection 4 mg, 4 mg, IntraVENous, q6h PRN, Petrona M Dials polyethylene glycol (PEG) 3350 (Miralax) packet 17 g, 17 g, Oral, Daily PRN, Petrona M Dials sodium chloride 0.9 % infusion, 5-250 mL/hr, IntraVENous, PRN, Petrona M Dials sodium chloride 0.9 % infusion, 50 mL/hr, IntraVENous, Continuous, Petrona M Dials, Stopped at 05/24/2533 sodium chloride 0.9 % infusion, 50 mL/hr, IntraVENous, Continuous, Petrona M Dials, Last Rate: 50 mL/hr at 05/24/25543, 50 mL/hr at 05/24/25543 sodium chloride 0.9% (NS) flush 5-40 mL, 5-40 mL, IntraVENous, q12h, Petrona M Dials, 20 mL at 05/23/252213 sodium chloride 0.9% (NS) flush 5-40 mL, 5-40 mL, IntraVENous, PRN, Petrona M Dials [2] sodium chloride, 50 mL/hr, Last Rate: Stopped (05/24/2533) sodium chloride, 50 mL/hr, Last Rate: 50 mL/hr (05/24/25543) Cosigned by Jade Goode MD at 05/24/2025 2:17 PM EDT Associated attestation - Jade Goode MD - 05/24/2025 2:17 PM EDT Neuro Critical Care / stroke Attending - Diagnosis Acute onset of loss of vision of the right eye within a month of previous acute onset of loss of vision of the left eye. Mechanism of blindness unclear at this time Current working diagnosis is that is secondary to retinal artery occlusion, and arterial to atheroembolic events from this severe stenosis of both internal carotid arteries, and from the high burden of atherosclerotic changes in the aortic arch We heard that the umbrella tipper that saw the patient as an outpatient has been concerned about possible temporal arteritis Patient denied having any symptoms consistent with systemic malaise Patient denied any particular progressive severe headaches there is however physical exam finding of cervicogenic headaches worse on the left side on the right side and some complaining of headache bitemporal in the last 24 hours Although the concern for temporal arteritis is very reasonable, her ESR is only 10 and the C-reactive protein was only slightly elevated with 8.4 months ago and 9.6 this month, usually this lab work are elevated and the values of 50-100 in the setting of symptomatic temporal arteritis for that reason and the coexistence of other conditions that could be triggering her symptoms do not feel strongly that we need to put her on steroids and or obtain temporal artery biopsy. However I would like a second opinion from another umbrella tipper to be evaluated the patient this admission and if anybody disagree with him it would be easy to put her on steroids for now no without risk as the patient already came with melena hypertension Visual loss may also be triggered by /malignant hypertension Stroke risk factors include Severe D1 matter chronic ischemic changes suggesting small vessel pathology arteriopathy Severe atherosclerotic disease of the aortic arch with multiple ulcers and plaques more than 4 mm in size Severe bilateral carotid stenosis irregular Severe atherosclerotic disease and stenosis of the bilateral intracranial portion of the ICAs in the region of the clinoid Uncontrolled hypertension Mild dyslipidemia No evidence of diabetes JESUS Other conditions - Advanced age - Mild leukocytosis - Body mass index of 33.8 - State of protein malnourishment mild - Suspect mild cognitive impairment patient with poor recollection of course of events cannot give a history quick answers to some questions - General Debility Plan Would like to see repeated ophthalmology evaluation Follow-up ESR and C-reactive protein Repeat MRI brain Optimize hydration Carotid ultrasound Pending carotid ultrasound decide the next course of action In regards to systolic blood pressure as per my resident's note we will expedite maintain above 120 at all possible but keep it less than 180 as there is severe hypertension may also have trigger tract symptoms which includes blindness I personally interviewed and examined this patient , reviewed , corrected, agreed and attested the note for this patient. I reviewed the chart including MAR, labs, neuroimaging, other imaging studies and discussed my diagnostic impression and patient's plan of care with my TANMAY/resident/ Fellow , student and the consulting team and patient's family members/surrogate decision makers (in cases where the patient is incapacitated and unable to participate in their own care). [x] Encounter Face to Face [x] Consult [x] Time spend [x] 80 [x] will continue to follow Personal discussion of test results and plan of care with: Patient treatments and testing options informed consent and plan of care, Admitting Team, ., ., . Thank you Charlene Walker MD for the opportunity to be involved in this patient's care. documented in this encounter [facility] 05-29-2025 Note Peripheral IV Date/Time: 05/29/2025 10:50 AM Inserted by: Dorothy Rodriguez RN Placement Needle size: 20 G Laterality: right Location: wrist Local anesthetic: none Site prep: alcohol Technique: anatomical landmarks Attempts: 1 [facility] 05-29-2025 Note [facility] 05-29-2025 Note [facility] 05-26-2025 Note [facility] to [facility] Aaron Lopez via [facility] per [facility] request. Await review and response regarding ability to accept. [facility] notified. [facility] 05-26-2025 Note Patient declines smo ana m cessation counseling. She is accepting of handout with contact information for future reference. [facility] 05-26-2025 Note Met with kaylin amato ed more referrals and hydraulic jack operator tasked , given medicaid application . [facility] 05-24-2025 Note Speech-Freight Associate ology Patient passed the Nursing Swallowing Screening. As per stroke policy, no formal dysphagia evaluation is required. Completed speech orders. [facility] 05-24-2025 Hospital Discharge instructions Renetta Temple, SHOP ROUTER - ENTRY LEVEL MECHANICAL ENGINEER - 05/24/2025 4:14 AM EDT Refer to the Understanding Stroke Booklet given to you, written material provided to patient/family, addressing all signs & symptoms of a stroke, which are: sudden numbness or weakness of the face, arm or leg, especially on one side of the body sudden confusion sudden difficulty speaking or understanding sudden trouble seeing in one or both eyes sudden trouble walking,dizziness, loss of balance or coordination sudden severe headache with no known cause syncope or temporary loss of consciousness seizure Explained the need to call EMS (911) immediately if signs & symptoms occur. Discussed medications that the patient is taking, will review medications again prior to discharge, risk factors, and the need for follow-up with a physician/PREBOARDER/PA after discharge. Ashley Hampton RN on 05/24/25 at 4:14 AM Discussed the patient s personal risk factors for Stroke /TIA with patient/family, and ways to reduce the risk for a recurrent stroke. Patient's personal risk factors which were identified are: [x] High blood pressure [x] High cholesterol [] Atrial fibrillation [] Diabetes [x] Smoking/e-cigarettes/vaping [] Smokeless tobacco [x] Overweight [x] Lack of Exercise [] Sleep apnea [] Prior heart disease or heart attack [] Excessive alcohol use [] Marijuana/cannabis use [] Illicit drug use [x] Personal history of previous TIA or stroke [x] Family history of stroke or heart disease [x] Carotid stenosis [] Heart failure [] Patent Foramen Ovale [] Migraine [] Hormone replacement therapy [] Current (up to six weeks post ) [] Depression [] Sickle Cell [] Renal insufficiency - chronic [] None Refer to Understanding Stroke Booklet. Advised patient that risk for stroke/TIA can be reduced by modifying/controlling risk factors. Patient advised to take medications as prescribed, which will be detailed in the discharge instructions, and to not stop taking them without consulting a physician. In addition, pt. advised to maintain a healthy diet, exercise regularly and to not smoke. Ashley Hampton RN on 05/24/25 at 4:14 AM Call your doctor with any medication questions or if you notice any side effects from your medications. If you are unable to fill your medications, please call your Corporate Legal Manager immediately. The office number is located with your follow-up appointment information. Call your doctor if any redness or drainage from the wound site. DO NOT stop taking your medication unless instructed to do so by your doctor. Read the drug information material that were given to you and take medications as instructed by your doctor. New drugs may have been added to your medications, that will strengthen your heart and prevent re-stenosis of the coronary arteries. Drink 6 glasses of water (8 ounces each) over the next 24 hours. Water helps clear the dye from your body. No alcoholic beverages for 24 hours. It may interfere with healing. No exercise or sex for 5 days. Call 911 for chest pain, arm pain, nausea, neck pain, dizziness or unusual sweating AND your pain has not relieved with 2 doses of Nitroglycerin. Groin: Call your doctor if a lump at the puncture site enlarges or is larger than a golf ball. Call your doctor for severe pain to a light touch or for numbness, tingling or swelling of the affected foot. Call your doctor for increased area of bruising with discoloration extending down the leg. Call your doctor for coolness of the leg or foot. If bleeding occurs, lie down on a hard surface preferably the floor and apply pressure to the site for 20 minutes if BLEEDING continues CALL 911. OK to shower. No tub baths, swimming pools, or hot tub soaking for five days. Wash site daily with soap and water, dry gently. The healing wound should remain soft and dry. Keep the site clean and dry. Cover with large band aid and change dressing for total of five days. No lifting, pushing or pulling more than 5 pounds for 5 days. No driving for three days. Limit your stair climbing for three days. PLEASE CALL YOUR HEART DOCTOR IF YOU CANNOT GET YOUR MEDICATIONS. THE NUMBER IS LISTED WITH YOUR FOLLOW-UP APPOINTMENT. Procedure Sedation Instructions If you have received sedation: you must have someone drive you home You should not drive a car, operate machinery, drink alcohol or perform any activity that requires alertness for the rest of the day. The effects of the sedative should be gone by tomorrow. Bita Holland MD - 06/10/2025 1:23 PM EDT As tolerated with PT/OT Bita Holland MD - 06/10/2025 1:24 PM EDT regular Charlene Garcia RN - 05/26/2025 12:34 PM EDT Jun 26 Hospital Follow Up with Roe Alfaro PA-C Jun 11:00 AM Please arrive 15 minutes prior to appointment, bring insurance card and photo ID. [address] [phone] Arrive at: [facility] Annamarie Jorge RN - 05/27/2025 8:18 AM EDT Images from the original note were not included. Continuity of Care Form Patient Name: Diana Kohli : 1940 Admit date: 05/23/2025 Discharge date: 06/10/2025 Code Status Order: DNR-CCA Advance Directives: Y Admitting Physician: Jas Flores DO PCP: Charlene Walker MD Discharging Nurse: Annamarie Arora Discharging Hospital Unit/Room#: W3-325/W3-325 B Discharging Unit Emergency Contact: Extended Emergency Contact Information Primary Emergency Contact: Piper Hamilton (POA) Mobile Relation: Niece Past Surgical History: Past Surgical History: Procedure Laterality Date CHOLECYSTECTOMY NECK EXPLORATION 01/02/2024 INCISION AND DRAINAGE DEEP ABCESS OR HEMATOMA SOFT TISSUE NECK OR THORAX Immunization History: Immunization History Administered Date(s) Administered Moderna SARS-CoV-2 Vaccination 01/27/2021, 02/24/2021, 09/03/2021 Pneumococcal Conjugate PCV 13 05/04/2021 Pneumococcal Polysaccharide PPSV23 03/05/2019 Active Problems: Medical Problems Problem List * (Principal) Acute cerebrovascular accident (CVA) due to ischemia (HCC) Cellulitis of submental space Submental abscess Hypertension Acute loss of vision, left Stroke-like symptoms Isolation/Infection: No active isolations No active infections Nurse Assessment: Last Vital Signs: BP 148/70 (BP Location: Right arm, Patient Position: Lying) Pulse 60 Temp 36.4 C (97.5 F) (Temporal) Resp 17 Ht 1.575 m (5' 2.01") Wt 83.9 kg (185 lb) SpO2 90% BMI 33.83 kg/m Last documented pain score (0-10 scale): Last Weight: Wt Readings from Last 1 Encounters: 05/24/25 83.9 kg (185 lb) Mental Status: MARISSA Patient Mental Status: oriented and alert IV Access: MARISSA IV Access: None Nursing Mobility/ADLs: Walking Independent Transfer Independent Bathing Minimal assistance Dressing Minimal assistance Toileting Independent Feeding Independent [facility] Independent Med Delivery yes Wound Care Documentation and Therapy: Elimination: Continence: Bowel: yes Bladder: yes Urinary Catheter: None Colostomy/Ileostomy/Ileal Conduit: None Date of Last BM: 06/08/25 No intake or output data in the 24 hours ending 05/27/25 0816 No intake/output data recorded. Safety Concerns: at risk for falls Impairments/Disabilities: vision Nutrition Therapy: Current Nutrition Therapy: Oral diet: general Routes of Feeding: oral Liquids: thin liquids Daily Fluid Restriction: no Last Modified Barium Swallow with Video (Video Swallowing Test): not done Treatments at the Time of Hospital Discharge: Respiratory Treatments: none Oxygen Therapy: is not on home oxygen therapy. Ventilator: No ventilator support Rehab Therapies: physical therapy, occupational therapy, nursing, and aide Weight Bearing Status/Restrictions: no restriction Other Medical Equipment (for information only, NOT a DME order): shower chair Other Treatments: none Patient's personal belongings (please select all that are sent with patient): dentures {:[id number]}, jewelry, and clothing, suit case RN SIGNATURE: MANAGEMENT/SOCIAL WORK SECTION Inpatient Status Date: 05/24/25 Discharging to Facility/ Agency Name: [facility] Address: [address] [place] [address] Fax: Dialysis Facility (if applicable) Name: Address: Dialysis Schedule: Phone: Fax: [facility] [employer] Card Checker signature: ICIAN SECTION Name: Diana Kohli Prognosis: good Condition at Discharge: stable Rehab Potential (if transferring to Rehab): good Recommended Labs or Other Treatments After Discharge: none The individual is being admitted to a nursing facility directly from an [facility] or a unit of a [facility] that is not operated by or licensed by [facility] under section 5119.14 or 5160-3-15.1 5 The individual requires the level of services provided by a nursing facility for the condition for which he or she was treated in the hospital and, Physician Certification: I certify the above information and transfer of Diana Kohli is necessary for the continuing treatment of the diagnosis listed and that she requires retirement facility for less than 30 days. Update Admission H&P: No change in H&P PHYSICIAN SIGNATURE: documented in this encounter [facility] 05-24-2025 Emergency department Note Report given to Erin JONES. Patient BP 232/112, Provider made aware via secure chat. Provider ordered Hydralazine 10mg IV. Patient taken to CT. Emergency Department Encounter [facility] EMERGENCY DEPT Patient: Diana Kohli : 1940 Date of Evaluation: 05/23/2025 ED Provider: Nael Gage NP I saw the patient as the Clinician in Triage and performed a brief history and physical exam, established acuity, and ordered appropriate tests to develop basic plan of care. Patient will be seen by TANMAY, resident and/or my physician partner who will evaluate the patient. If seen by the TANMAY I will manage the patient in a supervisory role and will be available for co-management. I did perform a substantive portion of the visit including all aspects of the Medical Decision Making. I wore appropriate PPE for the entirety of this encounter. Brief HPI: In brief, Diana Kohli is a 84 y.o. female that presents for right vision loss since 3 AM this morning. Went to a retinal specialist this afternoon she may have giant cell inflammation. History of recent stroke a few weeks ago where she lost partial vision of her left eye. Has known carotid stenosis. Patient is accompanied by her niece who is a historian. Focused Physical exam: Other than her vision loss in the right eye, her neurological exam is nonfocal on arrival. Symmetrical smile. Negative Romberg. Movement of all extremities x 4. EOMI. No nystagmus.. Plan/MDM: Class B stroke workup was ordered. Request for acute care bed in the emergency room. Please see subsequent provider note for further details and disposition (Comment: Please note this report has been produced using speech recognition software and may contain errors related to that system including errors in grammar, punctuation, and spelling as well as words and phrases that may be inappropriate. If there are any questions or concerns please feel free to contact the dictating provider for clarification) Nael Gage NP Acute Care [facility] Nael Gage NP 05/23/251957 EMERGENCY DEPARTMENT ENCOUNTER Pt Name: Diana Kohli Birthdate 1940 Date of evaluation: 05/23/2025 ED Provider: Tk Conte DO CHIEF COMPLAINT Chief Complaint Patient presents with Loss of Vision Patient states losing vision in right eye, similar issue with left eye recently. HISTORY OF PRESENT ILLNESS (Location/Symptom, Timing/Onset, Context/Setting, Quality, Duration, Modifying Factors, Severity) Note limiting factors. I wore appropriate PPE for the entirety of this encounter. HPI Diana Kohli is a 84 y.o. who presents to the emergency department for evaluation of right eye vision loss. Patient was brought back here and I had assumed care after the triage provider had seen this patient. Initially she had noncontrast head CT ordered prior to my evaluation of patient. She presents after being seen by retinal specialist who was concerned about possible giant cell inflammation of the right eye. Patient states that she had normal vision in the right eye last time which she recalls was midnight yesterday she woke up at 3 AM and she states she could not see out of that eye. She is able to see very minimal flickering and only able to make out number of fingers about 12 inches in front of her face. No eye pain. 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 I did review CTA neck which patient had showing 60% carotid stenosis and 40% carotid narrowing on the right side. Nursing Notes were reviewed. Limitations to history: None Outside historians: None REVIEW OF SYSTEMS Review of Systems Pertinent positives and negatives as per HPI PAST MEDICAL HISTORY Medical History[1] SURGICAL HISTORY Surgical History[2] CURRENT MEDICATIONS Previous Medications AMLODIPINE (NORVASC) 5 MG TABLET Take 5 mg by mouth before bedtime. ASPIRIN 81 MG EC TABLET Take 81 mg by mouth daily. ATORVASTATIN (LIPITOR) 40 MG TABLET Take 1 tablet (40 mg) by mouth Nightly. CHOLECALCIFEROL (VITAMIN D-3) 25 MCG (1000 UT) CAPSULE Take 1,000 Units by mouth daily. ESCITALOPRAM (LEXAPRO) 10 MG TABLET Take 10 mg by mouth daily. LEVOTHYROXINE (SYNTHROID, LEVOXYL) 112 MCG TABLET Take 112 mcg by mouth every morning (before breakfast). MECLIZINE (ANTIVERT) 25 MG TABLET Take 12.5 mg by mouth in the morning. ALLERGIES Patient has no known allergies. FAMILY HISTORY Family History[3] SOCIAL HISTORY Social History[4] PHYSICAL EXAM ED Triage Vitals Temp Heart Rate Resp BP 05/23/25195205/23/25195205/23/25195205/23/251952 36 C (96.8 F) 73 16 (!) 152/114 SpO2 Temp Source Heart Rate Source Patient Position 05/23/25195205/23/25195205/23/25195205/23/252022 96 % Temporal Monitor Sitting BP Location FiO2 (%) 05/23/252022 -- Left arm Physical Exam Vitals and nursing note reviewed. Constitutional: General: She is not in acute distress. Appearance: She is well-developed. HENT: Head: Normocephalic and atraumatic. Eyes: Conjunctiva/sclera: Conjunctivae normal. Cardiovascular: Rate and Rhythm: Normal rate and regular rhythm. Heart sounds: No murmur heard. Pulmonary: Effort: Pulmonary effort is normal. No respiratory distress. Breath sounds: Normal breath sounds. Abdominal: Palpations: Abdomen is soft. Tenderness: There is no abdominal tenderness. Musculoskeletal: General: No swelling. Cervical back: Neck supple. Skin: General: Skin is warm and dry. Capillary Refill: Capillary refill takes less than 2 seconds. Neurological: Mental Status: She is alert. Comments: Strength is 5 out of 5 throughout. Sensation is intact throughout. No slurred speech, no word finding difficulty. No ataxia. Patient has an NIH score of 2 for vision loss in the right eye. She has poor vision in the left eye but recent history of stroke on that side. Psychiatric: Mood and Affect: Mood normal. DIAGNOSTIC RESULTS RADIOLOGY (Per Emergency Physician): Interpretation per the Radiologist below, if available at the time of this note: CTA head neck angio w and wo IV contrast Final Result An 80 percent stenosis at the origin of the right internal carotid artery. An 80 percent stenosis at the origin of the left internal carotid artery. Shaggy plaques in the aortic arch with an anterior penetrating aortic ulcer. Report Dictated on Electronically Signed By: Blake Fragoso MD Electronically Signed Date/Time: 05/23/2025 9:[address] head wo IV contrast Final Result No acute findings. Report Dictated on Electronically Signed By: Blake Fragoso MD Electronically Signed Date/Time: 05/23/2025 8:41 PM EDT MR brain w and wo contrast (Results Pending) LABS: Labs Reviewed CBC WITH AUTO DIFFERENTIAL - Abnormal Result Value Auto WBC 9.8 RBC 5.07 Hemoglobin 15.7 Hematocrit 47.4 (*) MCV 93.5 MCH 31.0 MCHC 33.1 RDW 13.0 Platelets 244 MPV 9.5 nRBC 0.0 Neutrophils Relative 69.3 Lymphocytes Relative 20.1 Monocytes Relative 7.2 Eosinophils Relative 2.8 Basophils Relative 0.4 Immature Grans % 0.2 Neutrophils Absolute 6.8 Lymphocytes Absolute 2.0 Monocytes Absolute 0.7 Eosinophils Absolute 0.3 Basophils Absolute 0.0 Immature Grans Absolute 0.0 COMPREHENSIVE METABOLIC PANEL - Abnormal SODIUM 139 POTASSIUM 3.8 CHLORIDE 103 CARBON DIOXIDE 26 ANION GAP 10 UREA NITROGEN 16 CREATININE 1.42 (*) GLUCOSE 103 CALCIUM 9.5 AST (SGOT) 24 ALT 18 ALKALINE PHOSPHATASE 209 (*) ALBUMIN 3.7 BILIRUBIN, TOTAL 1.0 TOTAL PROTEIN 7.4 eGFR 37.0 (*) POCT GLUCOSE METER UNSOLICITED RESULTS - Abnormal Glucose 105 (*) Narrative: Performed by: [facility], [address] [place] [address], [place] [address] CLIA ID: [id number] HIGH SENSITIVITY TROPONIN, SERIAL BASELINE - Normal Troponin HS Serial Baseline 9 PROTIME & APTT - Normal PROTHROMBIN TIME 10.2 INR 1.0 APTT 27.9 MAGNESIUM - Normal MAGNESIUM 2.3 Narrative: Higher values can be expected in females during menses. THYROID STIMULATING HORMONE - Normal THYROID STIMULATING HORMONE 1.09 COMPLETE URINALYSIS WITH REFLEX TO CULTURE - Normal Color, Urine Colorless Clarity, Urine Clear pH, Urine 7.5 Leukocytes, Urine Negative Nitrite, Urine Negative Protein, Urine Negative Glucose, Urine Normal Bilirubin, Urine Negative Ketones, Urine Negative Urobilinogen, Urine Normal Blood, Urine Negative SPECIFIC GRAVITY OF URINE (NUMERIC) 1.016 Narrative: A specimen with <=10 WBC is not consistent with inflammation. This specimen will not reflex to a urine culture. COMPREHENSIVE METABOLIC PANEL WITH MG REFLEX Narrative: The following orders were created for panel order Comprehensive Metabolic Panel with Mg Reflex. Procedure Abnormality Status --------- ------ Comprehensive metabolic ...[[id number]] Abnormal Final result Please view results for these tests on the individual orders. HIGH SENSITIVITY TROPONIN, SERIAL, SECOND TEST COMPREHENSIVE METABOLIC PANEL WITH MG REFLEX Narrative: The following orders were created for panel order Comprehensive Metabolic Panel w/ Mg Reflex. Procedure Abnormality Status --------- ------ Comprehensive metabolic ...[[id number]] Please view results for these tests on the individual orders. CBC (HEMOGRAM) COMPREHENSIVE METABOLIC PANEL POCT GLUCOSE METER All other labs were within normal range or not returned as of this dictation. EMERGENCY DEPARTMENT COURSE and DIFFERENTIAL DIAGNOSIS/MDM: Vitals: Vitals: 05/23/25202205/23/256 05/23/254 05/23/25 2314 BP: (!) 215/98 (!) 232/112 (!) 207/109 Pulse: 74 72 78 73 Resp: 18 18 18 18 Temp: TempSrc: SpO2: 97% 96% 95% 95% Weight: 83.9 kg (184 lb 15.5 oz) Height: 1.575 m (5' 2") Medications sodium chloride 0.9% (NS) flush 5-40 mL (20 mL IntraVENous Given 05/23/252213) sodium chloride 0.9% (NS) flush 5-40 mL (has no administration in time range) sodium chloride 0.9 % infusion (has no administration in time range) sodium chloride 0.9 % infusion (50 mL/hr IntraVENous New Bag 05/23/252214) sodium chloride 0.9 % infusion (has no administration in time range) acetaminophen (Tylenol) tablet 650 mg (has no administration in time range) Or acetaminophen (Tylenol) suppository 650 mg (has no administration in time range) ondansetron ODT (Zofran-ODT) disintegrating tablet 4 mg (has no administration in time range) Or ondansetron (Zofran) injection 4 mg (has no administration in time range) polyethylene glycol (PEG) 3350 (Miralax) packet 17 g (has no administration in time range) bisacodyl (Dulcolax) suppository 10 mg (has no administration in time range) aspirin EC tablet 81 mg (has no administration in time range) Or aspirin suppository 300 mg (has no administration in time range) labetalol (Normodyne,Trandate) injection 10 mg (has no administration in time range) enoxaparin (Lovenox) syringe 40 mg (has no administration in time range) aspirin EC tablet 81 mg (has no administration in time range) atorvastatin (Lipitor) tablet 40 mg (has no administration in time range) cholecalciferol (Vitamin D-3) tablet 1,000 Units (has no administration in time range) escitalopram (Lexapro) tablet 10 mg (has no administration in time range) levothyroxine (Synthroid, Levoxyl) tablet 112 mcg (has no administration in time range) meclizine (Antivert) tablet 12.5 mg (has no administration in time range) amLODIPine (Norvasc) tablet 5 mg ( Oral Dose Auto Held 05/27/252199) sodium chloride 0.9 % bolus 250 mL (0 mL IntraVENous Stopped 05/23/252214) iopamidol (Isovue-370) 76 % injection 75 mL (75 mL IntraVENous Given 05/23/252149) hydrALAZINE (Apresoline) injection 10 mg (10 mg IntraVENous Given 05/23/252308) SCREENINGS NIH Stroke Scale 1A. Level of Consciousness: Alert, Keenly Responsive 1B. Ask Month and Age: Both Questions Right 1C. Blink Eyes & Squeeze Hands: Performs Both Tasks 2. Best Gaze: Normal 3. Visual: Complete Hemianopia 4. Facial Palsy: Normal Symmetrical Movements 5A. Motor - Left Arm: No Drift 5B. Motor - Right Arm: No Drift 6A. Motor - Left Leg: No Drift 6B. Motor - Right Leg: No Drift 7. Limb Ataxia: Absent 8. Sensory Loss: Normal 9. Best Language: No Aphasia 10. Dysarthria: Normal 11. Extinction and Inattention: No Abnormality NIH Stroke Scale: 2 PROCEDURES: Unless otherwise noted below, none Procedures Presented to emergency department for evaluation of strokelike symptoms. Acute vision loss in the right eye, last known well 3 AM. Patient has stable labs, normal troponin, 1.4 which is baseline. No leukocytosis or anemia. CT imaging shows no acute cranial normalities, CTA head and neck showing increased bilateral carotid artery stenosis with aortic arch penetrating ulcer. New findings compared to prior. Patient already on Plavix. Blood pressure also is significantly elevated I did give her a dose of hydralazine here. She will be admitted to medicine for further management. Discussed plan with patient and daughter, they are agreeable. CRITICAL CARE TIME Critical care time: 35 minutes excluding separately billed procedures. FINAL IMPRESSION 1. Stroke-like symptoms 2. Bilateral carotid artery stenosis 3. Penetrating ulcer of aorta (CMS/HCC) ([facility]) DISPOSITION Observation 05/23/2025 11:42:07 PM PATIENT REFERRED TO: No follow-up provider specified. DISCHARGE MEDICATIONS: New Prescriptions No medications on file (Comment: Please note this report has been produced using speech recognition software and may contain errors related to that system including errors in grammar, punctuation, and spelling, as well as words and phrases that may be inappropriate. If there are any questions or concerns please feel free to contact the dictating provider for clarification.) Tk Conte DO (electronically signed) Emergency Medicine Provider [1] Past Medical History: Diagnosis Date Disease of thyroid gland Hypertension 01/01/2024 [2] Past Surgical History: Procedure Laterality Date CHOLECYSTECTOMY NECK EXPLORATION 01/02/2024 INCISION AND DRAINAGE DEEP ABCESS OR HEMATOMA SOFT TISSUE NECK OR THORAX [3] No family history on file. [4] Social History Socioeconomic History Marital status: Tobacco Use Smoking status: Every Day Current packs/day: 1.00 Average packs/day: 1 pack/day for 17.4 years (17.4 ttl pk-yrs) Types: Cigarettes Start date: 12/18/2007 Smokeless tobacco: Never Substance and Sexual Activity Alcohol use: Not Currently Drug use: Not Currently Sexual activity: Not Currently Social Drivers of Health Financial Resource Strain: Low Risk (04/25/2025) Overall Financial Resource Strain (CARDIA) Difficulty of Paying Living Expenses: Not very hard Food Insecurity: No Food Insecurity (04/25/2025) Hunger Vital Sign Worried About Running Out of Food in the Last Year: Never true Ran Out of Food in the Last Year: Never true Transportation Needs: No Transportation Needs (04/25/2025) PRAPARE - Transportation Lack of Transportation (Medical): No Lack of Transportation (Non-Medical): No Physical Activity: Inactive (04/25/2025) Exercise Vital Sign Days of Exercise per Week: 0 days Minutes of Exercise per Session: 0 min Stress: No Stress Concern Present (04/18/2025) [employer] [place] [employer] - Occupational Stress Questionnaire Feeling of Stress : Not at all Social Connections: Unknown (04/25/2025) Social Connection and Isolation Panel [NHANES] Marital Status: Intimate Partner Violence: Not At Risk (04/18/2025) Humiliation, Afraid, Rape, and Kick questionnaire Fear of Current or Ex-Partner: No Emotionally Abused: No Physically Abused: No Sexually Abused: No Housing Stability: Low Risk (04/25/2025) Housing Stability Vital Sign Unable to Pay for Housing in the Last Year: No Number of Times Moved in the Last Year: 0 Homeless in the Last Year: No Tk Conte DO 05/24/25 0001 documented in this encounter [facility] 05-23-2025 Note [facility] 05-23-2025 History and physical note Attending History and Physical Admit Date: 05/23/2025 PCP: Charlene Walker MD CHIEF COMPLAINT: Right eye vision loss Reason for Admission: Retinal artery occlusion/stroke History Obtained From: patient HISTORY OF PRESENT ILLNESS: Patient is an 84-year-old female with past medical history of hypothyroidism, HTN, tobacco use, left eye retinal occlusion, suspected vascular dementia, carotid artery stenosis, who presented to the hospital on 05/23/2025 with a chief complaint of right-sided vision loss which occurred on 05/23/2025 after waking up at about 3 AM to use the restroom. She can only see about a foot in front of her face. She denies any other focal neurologic deficits, weakness, dizziness, numbness/tingling. Prior to coming into the hospital, she did see a umbrella tipper who was concerned for giant cell arteritis however on presentation to the ER she denies no significant headache, temporal pain etc. In the emergency department, patient was extremely hypertensive at 232/112. Laboratory data revealed an elevated creatinine of 1.42 and an elevated alkaline phosphatase of 209. Troponin negative x 2. Glucose mildly elevated at 105. CBC unremarkable. ESR 10. Fibrinogen 544. CRP 9.6. TSH normal at 1.09. INR 1.0. Urinalysis negative. - EKG personally reviewed showing normal sinus rhythm, no significant T wave inversions. No evidence of acute ischemia. Prolonged TX. - CT head completed with no acute findings. - CT angiography of the head neck revealed bilateral 80% stenosis of the internal carotids. Additionally patient has a shaggy plaque in the aortic arch with an anterior penetrating oral ulcer. - Last A1c taken 1 month ago at 5.6 Echo 04/18/25: Left Ventricle: Left ventricle size is normal. Mildly increased wall thickness. Normal left ventricular systolic function. EF by 2D Simpsons Biplane is 55%. Normal wall motion. Right Ventricle: Right ventricle size is normal. Normal systolic function. Pericardium: Evidence of prominent epicardial fat. No pericardial effusion. No significant valvular abnormalities. Technically difficult study. Given these findings patient will be admitted for neurology evaluation, CT surgery evaluation, and vascular evaluation. Past Medical History: Medical History[1] Past Surgical History: Surgical History[2] Social History: Social History Socioeconomic History Marital status: Spouse name: Not on file Number of children: Not on file Years of education: Not on file Highest education level: Not on file Occupational History Not on file Tobacco Use Smoking status: Every Day Current packs/day: 1.00 Average packs/day: 1 pack/day for 17.4 years (17.4 ttl pk-yrs) Types: Cigarettes Start date: 12/18/2007 Smokeless tobacco: Never Substance and Sexual Activity Alcohol use: Not Currently Drug use: Not Currently Sexual activity: Not Currently Other Topics Concern Not on file Social History Narrative Not on file Social Drivers of Health Financial Resource Strain: Low Risk (04/25/2025) Overall Financial Resource Strain (CARDIA) Difficulty of Paying Living Expenses: Not very hard Food Insecurity: No Food Insecurity (04/25/2025) Hunger Vital Sign Worried About Running Out of Food in the Last Year: Never true Ran Out of Food in the Last Year: Never true Transportation Needs: No Transportation Needs (04/25/2025) PRAPARE - Transportation Lack of Transportation (Medical): No Lack of Transportation (Non-Medical): No Physical Activity: Inactive (04/25/2025) Exercise Vital Sign Days of Exercise per Week: 0 days Minutes of Exercise per Session: 0 min Stress: No Stress Concern Present (04/18/2025) [employer] [place] [employer] - Occupational Stress Questionnaire Feeling of Stress : Not at all Social Connections: Unknown (04/25/2025) Social Connection and Isolation Panel [NHANES] Frequency of Communication with Friends and Family: Not on file Frequency of Social Gatherings with Friends and Family: Not on file Attends Baptism Services: Not on file Active Member of Clubs or Organizations: Not on file Attends Club or Organization Meetings: Not on file Marital Status: Intimate Partner Violence: Not At Risk (04/18/2025) Humiliation, Afraid, Rape, and Kick questionnaire Fear of Current or Ex-Partner: No Emotionally Abused: No Physically Abused: No Sexually Abused: No Housing Stability: Low Risk (04/25/2025) Housing Stability Vital Sign Unable to Pay for Housing in the Last Year: No Number of Times Moved in the Last Year: 0 Homeless in the Last Year: No Family History: Family History[3] Medications Prior to Admission: Current Medications[4] Medications Reconciliation: Medications were reviewed in chart but unable to verify accurate with patient Allergies: Allergies[5] REVIEW OF SYSTEMS: 10 point ROS obtained, as per HPI, otherwise NEG Vitals: BP (!) 207/109 Pulse 73 Temp 36 C (96.8 F) (Temporal) Resp 18 Ht 5' 2" (1.575 m) Wt 184 lb 15.5 oz (83.9 kg) SpO2 95% BMI 33.83 kg/m BMI Classification: Yeah compartment syndrome they are their compartment normally feels like would like it that staff like gets it is not something like that if you are you are Pulse Ox: SpO2 Av.8 % Min: 95 % Max: 97 % Supplemental O2: PHYSICAL EXAM: Physical Exam Constitutional: Appearance: Normal appearance. HENT: Head: Normocephalic and atraumatic. Eyes: Extraocular Movements: Extraocular movements intact. Pupils: Pupils are equal, round, and reactive to light. Cardiovascular: Rate and Rhythm: Normal rate and regular rhythm. Heart sounds: No murmur heard. Pulmonary: Effort: Pulmonary effort is normal. No respiratory distress. Breath sounds: Normal breath sounds. Abdominal: General: Abdomen is flat. Palpations: Abdomen is soft. Musculoskeletal: General: No swelling or deformity. Skin: General: Skin is warm and dry. Neurological: Mental Status: She is alert. NIH Stroke Scale Interval: 20 hours since onset Time: 1:11 AM Person Administering Scale: Nicho Jimenez, Administer stroke scale items in the order listed. Record performance in each category after each subscale exam. Do not go back and change scores. Follow directions provided for each exam technique. Scores should reflect what the patient does, not what the clinician thinks the patient can do. The clinician should record answers while administering the exam and work quickly. Except where indicated, the patient should not be coached (i.e., repeated requests to patient to make a special effort). 1a Level of consciousness: 0=alert; keenly responsive 1b. LOC questions: 0=Performs both tasks correctly 1c. LOC commands: 0=Performs both tasks correctly 2. Best Gaze: 0=normal 3. Visual: 2=Complete hemianopia 4. Facial Palsy: 0=Normal symmetric movement 5a. Motor left arm: 0=No drift, limb holds 90 (or 45) degrees for full 10 seconds 5b. Motor right arm: 0=No drift, limb holds 90 (or 45) degrees for full 10 seconds 6a. motor left le=No drift, limb holds 90 (or 45) degrees for full 10 seconds 6b Motor right le=No drift, limb holds 90 (or 45) degrees for full 10 seconds 7. Limb Ataxia: 0=Absent 8. Sensory: 0=Normal; no sensory loss 9. Best Language: 0=No aphasia, normal 10. Dysarthria: 0=Normal 11. Extinction and Inattention: 0=No abnormality 12. Distal motor function: 0=Normal Total: 2 DATA: CBC: Recent Labs 05/23/25 1559 05/23/252104 WBC 8.1 9.8 RBC 4.84 5.07 HGB 14.9 15.7 HCT 45.2 47.4* MCV 93.4 93.5 RDW 12.9 13.0 PLT 206 244 BMP: Recent Labs 05/23/252104 NA 139 K 3.8 CL 103 CO2 26 BUN 16 CREATININE 1.42* GLUCOSE 103 CALCIUM 9.5 ANIONGAP 10 LIVER PROFILE: Recent Labs 05/23/252104 AST 24 ALT 18 BILITOT 1.0 ALKPHOS 209* PROT 7.4 PT/INR: Recent Labs 05/23/252104 PROTIME 10.2 INR 1.0 CARDIAC ENZYMES: No results for input(s): "TROPONINI" in the last 72 hours. Procalcitonin: No results found for: PROCAL Urine Culture: No results found for this or any previous visit. COVID-19 PCR: No results for input(s): "COVID19" in the last 72 hours. I reviewed: [x] laboratory results [x] radiographic results At the time of today's encounter. Pt was advised of the results. Data: (CAT1) Reviewed 3 or more notes from different specialty or health system (each=1). (CAT1) Reviewed 3 or more labs/studies ordered by another provider not previously counted (each=1, panels count as 1). (CAT1) Ordered 3 or more new labs and/or studies (each=1, panels count as 1). (CAT2) EKG reviewed & showed see above well if you are as interpreted by me. (CAT3) Discussed with ED provider, Dr. Tk Conte, regarding patient's eval & mgmt thus far, and agree with the plan for hospitalization. (LOW: 2x CAT1 or independent historian MOD: 3x CAT1 or 1x CAT3 EXTENSIVE: 3x CAT1 and 1x CAT3) Assessment Discussed management with the ED provider and agree with hospitalization. Acute, acute on chronic, unstable/uncontrolled chronic problems/diagnoses: Retinal artery occlusion vs Stroke Bilateral carotid artery stenosis Penetrating ulcer of the aorta Stable chronic problems affecting care, new non-acute diagnoses: Hypothyroidism - Continue levothyroxine for patient's history of hypothyroidism. Last TSH 05/23/2025 at 1.09. HTN - Labetalol as needed if patient's home amlodipine is not satisfactory. Goal ~160 (balance stroke w/aortic ulcer) tobacco use - Encourage cessation left eye retinal occlusion - Already on aspirin/atorvastatin. Hold Plavix for now in case of vascular intervention. Has been seen by optho as outpt. suspected vascular dementia - Follow with Neuro as outpt. Plan As a result of the above findings & factors, the following mgmt was pursued: - Unfortunately in this situation with patient's aortic ulcer, we cannot allow for permissive hypertension. We will shoot for a goal of around 160 to prevent further aortic dissection/rupture despite stroke concerns. Repeat MRI pending. No need for repeat echocardiogram as this was just completed on 04/19/2025. -Already on aspirin/atorvastatin. Hold Plavix for now in case of vascular intervention. DAPT per vascular/neurology recommendations. No significant evidence of giant cell arteritis. No need for steroids at this time. - Labetalol as needed if patient's home amlodipine is not satisfactory - Vascular/Ct surg consult placed. - As needed Tylenol - PT/OT - am labs, replace lytes prn - PT/OT/CM/SW - delirium precautions: increase activity and limit nighttime disturbances - DVT prophylaxis: SCDs and encourage ambulation Complexity: Acute illness or injury posing a threat to life or body function (HIGH). Risk: Admission to hospital-level care was considered or occurred (HIGH). Advance Directive: Full Code Anticipated Discharge - Date -05/25/2025, possibly longer if surgical intervention is needed - Location - Home - Pending the following -workup above Total time spent (which include face to face and non face to face encounters) : 72 minutes. Extended Emergency Contact Information Primary Emergency Contact: Piper aHmilton (POA) Mobile Relation: Niece [employer] Diana Kohli : 1940 Primary Care Physician: Charlene Walker MD The patient and/or family/surrogate voluntarily agreed to participate in ACP services. Patient s cognitive capacity: During my exam patient was able to recount the entire day, was alert and oriented. Code Status: [_] [FULL CODE - Continue all advanced life support: CPR,intubation,invasive procedures] [X] [DNR-CCA - DO NOT do CPR, intubation] [_] [DNR-LOAN CLERK - Comfort care only] [_] DNR form [was/was not] signed Summary of discussion: The patient health care POA/ surrogate is the following: Patient request that her louis Thomas at [phone] be her power of consumer attorney. I had a significant conversation with the patient about CODE STATUS. She was against any artificial machines keeping her alive. She confirmed that she has a DNR DNI in place and reports that it is on her fridge. I answered all the patient/family questions that I could within the range and scope of the current medical situation. We discussed the medical conditions, risks, benefits, outcomes, and goals of care at this time for the patient's medical issues at hand in the face of the patient's chronic issues and current presentation. Total time spent: 5 minutes were spent discussing the patient's resuscitation status, advance care planning, and end of life care, with patient and/or family/surrogate. Nicho Jimenez DO Division of Hospitalist Medicine [employer] [facility] [1] Past Medical History: Diagnosis Date Disease of thyroid gland Hypertension 01/01/2024 [2] Past Surgical History: Procedure Laterality Date CHOLECYSTECTOMY NECK EXPLORATION 01/02/2024 INCISION AND DRAINAGE DEEP ABCESS OR HEMATOMA SOFT TISSUE NECK OR THORAX [3] No family history on file. [4] Current Facility-Administered Medications: acetaminophen (Tylenol) tablet 650 mg, 650 mg, Oral, q6h PRN OR acetaminophen (Tylenol) suppository 650 mg, 650 mg, Rectal, q6h PRN, Petrona M Dials [Held by provider] amLODIPine (Norvasc) tablet 5 mg, 5 mg, Oral, Daily, Petrona M Dials [START ON 05/24/2025] aspirin EC tablet 81 mg, 81 mg, Oral, Daily OR [START ON 05/24/2025] aspirin suppository 300 mg, 300 mg, Rectal, Daily, Petrona M Dials [START ON 05/24/2025] aspirin EC tablet 81 mg, 81 mg, Oral, Daily, Petrona M Dials atorvastatin (Lipitor) tablet 40 mg, 40 mg, Oral, Nightly, Petrona M Dials bisacodyl (Dulcolax) suppository 10 mg, 10 mg, Rectal, Daily PRN, Petrona M Dials [START ON 05/24/2025] cholecalciferol (Vitamin D-3) tablet 1,000 Units, 1,000 Units, Oral, Daily, Petrona M Dials [START ON 05/24/2025] enoxaparin (Lovenox) syringe 40 mg, 40 mg, SubCUTAneous, Daily, Petrona M Dials [START ON 05/24/2025] escitalopram (Lexapro) tablet 10 mg, 10 mg, Oral, Daily, Petrona M Dials labetalol (Normodyne,Trandate) injection 10 mg, 10 mg, IntraVENous, q10 min PRN, Petrona M Dials [START ON 05/24/2025] levothyroxine (Synthroid, Levoxyl) tablet 112 mcg, 112 mcg, Oral, qAM AC, Petrona M Dials [START ON 05/24/2025] meclizine (Antivert) tablet 12.5 mg, 12.5 mg, Oral, Daily, Petrona M Dials ondansetron ODT (Zofran-ODT) disintegrating tablet 4 mg, 4 mg, Oral, q8h PRN OR ondansetron (Zofran) injection 4 mg, 4 mg, IntraVENous, q6h PRN, Petrona M Dials polyethylene glycol (PEG) 3350 (Miralax) packet 17 g, 17 g, Oral, Daily PRN, Petrona M Dials sodium chloride 0.9 % infusion, 5-250 mL/hr, IntraVENous, PRN, Petrona M Dials sodium chloride 0.9 % infusion, 50 mL/hr, IntraVENous, Continuous, Petrona M Dials, Last Rate: 50 mL/hr at 05/23/25 2215, 50 mL/hr at 05/23/25 221 sodium chloride 0.9 % infusion, 50 mL/hr, IntraVENous, Continuous, Petrona M Dials sodium chloride 0.9% (NS) flush 5-40 mL, 5-40 mL, IntraVENous, q12h, Petrona M Dials, 20 mL at 05/23/25 2214 sodium chloride 0.9% (NS) flush 5-40 mL, 5-40 mL, IntraVENous, PRN, Petrona M Dials Current Outpatient Medications: amLODIPine (Norvasc) 5 MG tablet, Take 5 mg by mouth before bedtime., Disp: , Rfl: aspirin 81 MG EC tablet, Take 81 mg by mouth daily., Disp: , Rfl: atorvastatin (Lipitor) 40 MG tablet, Take 1 tablet (40 mg) by mouth Nightly., Disp: 30 tablet, Rfl: 0 cholecalciferol (Vitamin D-3) 25 MCG (1000 UT) capsule, Take 1,000 Units by mouth daily., Disp: , Rfl: escitalopram (Lexapro) 10 MG tablet, Take 10 mg by mouth daily., Disp: , Rfl: levothyroxine (Synthroid, Levoxyl) 112 MCG tablet, Take 112 mcg by mouth every morning (before breakfast)., Disp: , Rfl: meclizine (Antivert) 25 MG tablet, Take 12.5 mg by mouth in the morning., Disp: , Rfl: [5] No Known Allergies documented in this encounter [facility] 05-12-2025 History of Present illness Narrative 04/30/25 Community Health Worker Home visit: Met pt at her residence and she states that she is feeling good today. She said she is aware of her upcoming appointments and always plans to attend. She said her friends takes her to the doctors office when needed. She verifies that she has all the medications and taking them as directed. 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 Handed form to the space sciences director and asked them to fax it to [facility] once the form is signed by her Provider. She denies other CHW concerns today. Encouraged her to contact me for any future CHW needs. No other questions or concerns at this time. Notes routed to her KATIE Cruz. Future outreach scheduled for check in. 04/25/25 Community Health Worker Chart reviewed. Placed a call and spoke to pt regarding referral from KATIE Cruz. Introduced myself and my role at [facility]. Pt states that she is doing fine at this time. She verifies that she needs assistance with completing the SCAT registration form. She tells me that typically her niece takes her to the doctors office however she notes that her niece might not be available all the time. She agrees with the plan of meeting in person at her home. She denies other community resources needs and CHW concerns at this time. She was very appreciative about the outreach. Provided with my phone number incase anything arise before my next outreach. No other questions or concerns today. Future outreach scheduled. 04/23/25 Community Health Worker Received referral from KATIE Cruz for SCAT registration assistance. Will follow up with the pt. Future outreach scheduled. Message from KATIE Cruz: Jeremias/Debra/Estrella-Referral for assistance with registering with [facility]. Thank you! documented in this encounter [facility] 05-07-2025 Telephone encounter Note S Transitional Care Management Outreach, Cluadia Webster RN requesting F/U with Dr. Lamin Srivastava Seen [facility] ED for C/O acute loss of vision L 04/20/25 A Hospitalist requested F/U in 7 days and patient is currently scheduled for 07/09/[address] Lamin Abarca Patient will be contacted next business day to schedule appointment. [facility] 05-07-2025 Miscellaneous Notes S Transitional Care Management Outreach, Claudia Webster RN requesting F/U with Dr. Lamin Srivastava Seen [facility] ED for C/O acute loss of vision L 04/20/25 A Hospitalist requested F/U in 7 days and patient is currently scheduled for 07/09/[address] Lamin Abarca Patient will be contacted next business day to schedule appointment. documented in this encounter [facility] 04-28-2025 History of Present illness Narrative 04/25/25 0956 Physical Activity On average, how many days per week do you engage in moderate to strenuous exercise (like a brisk walk)? 0 days On average, how many minutes do you engage in exercise at this level? 0 min Financial Resource Strain How hard is it for you to pay for the very basics like food, housing, medical care, and heating? Not very Housing Stability In the last 12 months, was there a time when you were not able to pay the mortgage or rent on time? N At any time in the past 12 months, were you homeless or living in a intermediate (including now)? N Transportation Needs In the past 12 months, has lack of transportation kept you from medical appointments or from getting medications? no In the past 12 months, has lack of transportation kept you from meetings, work, or from getting things needed for daily living? No Food Insecurity Within the past 12 months, you worried that your food would run out before you got the money to buy more. Never true Within the past 12 months, the food you bought just didn't last and you didn't have money to get more. Never true Social Connections Are you , , , , never , or living with a partner? Utilities In the past 12 months has the electric, gas, oil, or water company threatened to shut off services in your home? No Health Literacy How often do you need to have someone help you when you read instructions, pamphlets, or other written material from your doctor or pharmacy? Often 04/25/25 0954 General Care Management Assessment completed with: Patient Enrolled in care management program: Yes Living arrangement: Significant other (Niece) Support system: Significant other (Niece) Type of residence: Private residence Home care services: No Equipment used at home: Walker Bed or wheelchair confined: No Inadequate nutrition: No History of falls in last 6 months: No Difficulty keeping appointments: No Chronic pain: No 04/25/25 Community Health Worker Chart reviewed. Placed a call and spoke to pt regarding referral from KATIE Cruz. Introduced myself and my role at [facility]. Pt states that she is doing fine at this time. She verifies that she needs assistance with completing the SCAT registration form. She tells me that typically her niece takes her to the doctors office however she notes that her niece might not be available all the time. She agrees with the plan of meeting in person at her home. She denies other community resources needs and CHW concerns at this time. She was very appreciative about the outreach. Provided with my phone number incase anything arise before my next outreach. No other questions or concerns today. Future outreach scheduled. 04/23/25 Community Health Worker Received referral from KATIE Cruz for SCAT registration assistance. Will follow up with the pt. Future outreach scheduled. Message from KATIE Cruz: Jeremias/Debra/Estrella-[facility] Thank you! 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 Chronic bronchitis- never diagnosed or worked up for copd HOSPITAL COURSE: Diana is a 84 y.o. female with past medical history hypothyroidism, hypertension who is a current smoker for > 60 years presented to the Ed from her ophthalmology appointment. Symptoms originally started on Monday in the middle of the night. Patient went to bed normal. She woke up the first time at 2 AM went to the bathroom and was okay. Around 4 AM she woke up with blurry vision of her left eye. She called her granddaughter who recommended she report to the emergency department. She presented to the emergency department on April 17 for painless monocular vision loss. She wears bifocal glasses her blood pressure was elevated 191/103 and manual recheck was 180/90. CT head without IV contrast, CRP and sed rate was ordered. Stat lab exam showed normal vasculature in the anterior and posterior chamber. Tonometry was unable to be performed secondary to instrument malfunction. CT head no intracranial hemorrhage and no evidence of acute intracranial process. Case was discussed with ophthalmology who did not see need for acute inpatient workup and the plan was for patient to follow-up as outpatient. 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 Patient again presented to the ED for further workup and management. On presentation to the emergency department temperature 36.1, heart rate 67, respirations 18, blood pressure 182/ 92, 97% on room air. CT head and neck significant for moderate diffuse parenchymal volume loss, likely chronic small vessel ischemic changes and periventricular white matter. No acute intracranial abnormality. CTA of head/neck demonstrated calcification of the bilateral carotid bifurcations with associated Stenosis. Slight distal to the origin of the left internal carotid artery is approximately 60% stenosis and approximate 40% short segment narrowing of the right internal carotid artery. There is narrowing of the proximal left vertebral artery. Creatinine is 1.36, Baseline creatinine 1.08 in December 2023. Alkaline phosphatase elevated 180. CBC normal white blood cell count 9.7, hemoglobin 15.4, hematocrit 46.6 and platelet count 253. Sedimentation rate on 04/17/2016 normal. CRP elevated at 8.4. Patient was admitted to hospital for further evaluation and care of possible retinal artery occlusion with possible subacute stroke, vertebral artery narrowing. Neurology is consulted, MRI reviewed, echocardiogram reviewed. Continue aspirin and statin. Discussed with neurology, will add Plavix to regimen, retinal artery occlusion felt to be related to carotid plaque. Neurology discussed with endovascular neurology and patient will follow-up as outpatient with endovascular neurology for possible stenting of carotid plaque. Patient doing well, medically stable for discharge on 04/20/2025 Patient is alert, no acute distress, heart regular rhythm, lungs clear to auscultation bilaterally, abdomen soft nontender, neurologic cranials 2 through 12 are grossly intact, some vision changes of the left eye with light flashing in the lateral aspect. Sensation and motor strength intact SIGNIFICANT DIAGNOSTIC STUDIES: Impression: MRI brain 1. No acute intracranial abnormalities. 2. Generalized brain parenchymal volume loss and extensive chronic microvascular ischemic changes in the supratentorial white matter. 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 No acute intracranial abnormality. Impression: CTA neck Calcification of the bilateral carotid bifurcations with associated stenosis. Slightly distal to the origin of the left internal carotid artery there is approximate 60 percent stenosis. Approximate 40 percent short segment narrowing of the right internal carotid artery origin. Narrowing of the proximal left vertebral artery. CTA of the head is detailed above in a separate report. CONSULTANTS: Neurology RECOMMENDED NEXT STEPS: Add Plavix to aspirin and statin regimen Follow-up with endovascular in office for possible carotid stenting Follow-up with neurology in office in 1 week Follow-up with PCP DISCHARGE MEDICATIONS: Medication List START taking these medications atorvastatin 40 MG tablet Commonly known as: Lipitor Take 1 tablet (40 mg) by mouth Nightly. clopidogrel 75 MG tablet Commonly known as: Plavix Take 1 tablet (75 mg) by mouth daily. Start taking on: April 21, 2025 CONTINUE taking these medications amLODIPine 5 MG tablet Commonly known as: Norvasc aspirin 81 MG EC tablet cholecalciferol 25 MCG (1000 UT) capsule Commonly known as: Vitamin D-3 escitalopram 10 MG tablet Commonly known as: Lexapro levothyroxine 112 MCG tablet Commonly known as: Synthroid, Levoxyl meclizine 25 MG tablet Commonly known as: Antivert Where to Get Your Medications These medications were sent to [id number] - [place], [place] - [address] AT [facility] [address] [facility] [id number] atorvastatin 40 MG tablet clopidogrel 75 MG tablet DIET: Adult diet Regular; Low Sodium (2 gm) ACTIVITY: No restriction. COMPLEXITY OF FOLLOW UP: [] Moderate Complexity: follow up within 7-14 calendar days (43582) [x] Severe Complexity: follow up within 7 calendar days (88713) FOLLOW UP TESTING, PENDING RESULTS OR REFERRALS AT TRANSITIONAL CARE VISIT: [] Yes [x] No PENDING STUDIES: None DISPOSITION: Home Follow up with Vance Kimble MD [address] [facility] [address] Critical access hospital [id number] Follow up in 1 week(s) [facility] Neurology [address] [place] [id number] Follow up Charlene Walker MD [address] [facility] [address] [facility] [id number] Follow up INSTRUCTIONS TO MA/SW: Please call patient on day after discharge (must document patient contacted within 2 business days of discharge). FOLLOW UP QUESTIONS FOR MA/SW: 1. Did you get medications filled and taking them as instructed from discharge? 2. Are you following your discharge instructions from your hospital stay? 3. Please confirm patient is scheduled for a follow up appointment within the above time frame. DISCHARGE TIME: 33 minutes SIGNED: Bita Holland MD 04/20/2025, 2:15 PM documented in this encounter [facility] 04-20-2025 Note [facility] 04-20-2025 History of Present illness Narrative Nutrition rescreen completed. Chart reviewed. Patient to be monitored and followed by the diet natural gas technician. Rocio Harrington DT Hospitalist Progress Note 04/19/2025 Subjective: Admit Date: 04/18/2025 PCP: Charlene Walker MD [id number]EF HOSPITAL COURSE: Diana is a 84 y.o. female with past medical history hypothyroidism, hypertension who is a current smoker for > 60 years presented to the Ed from her ophthalmology appointment. Symptoms originally started on Monday in the middle of the night. Patient went to bed normal. She woke up the first time at 2 AM went to the bathroom and was okay. Around 4 AM she woke up with blurry vision of her left eye. She called her granddaughter who recommended she report to the emergency department. She presented to the emergency department on April 17 for painless monocular vision loss. She wears bifocal glasses her blood pressure was elevated 191/103 and manual recheck was 180/90. CT head without IV contrast, CRP and sed rate was ordered. Stat lab exam showed normal vasculature in the anterior and posterior chamber. Tonometry was unable to be performed secondary to instrument malfunction. CT head no intracranial hemorrhage and no evidence of acute intracranial process. Case was discussed with ophthalmology who did not see need for acute inpatient workup and the plan was for patient to follow-up as outpatient. 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 Patient again presented to the ED for further workup and management. On presentation to the emergency department temperature 36.1, heart rate 67, respirations 18, blood pressure 182/ 92, 97% on room air. CT head and neck significant for moderate diffuse parenchymal volume loss, likely chronic small vessel ischemic changes and periventricular white matter. No acute intracranial abnormality. CTA of head/neck demonstrated calcification of the bilateral carotid bifurcations with associated Stenosis. Slight distal to the origin of the left internal carotid artery is approximately 60% stenosis and approximate 40% short segment narrowing of the right internal carotid artery. There is narrowing of the proximal left vertebral artery. Creatinine is 1.36, Baseline creatinine 1.08 in December 2023. Alkaline phosphatase elevated 180. CBC normal white blood cell count 9.7, hemoglobin 15.4, hematocrit 46.6 and platelet count 253. Sedimentation rate on 04/17/2016 normal. CRP elevated at 8.4. Interval History: 04/19: Patient continues to have decreased vision of left eye, does notice some light spots but no clear vision of that eye. NPO diet without enteral medications 24HR INTAKE/OUTPUT: Intake/Output Summary (Last 24 hours) at 04/19/2025 1032 Last data filed at 04/19/2025 0521 Gross per 24 hour Intake 798.33 ml Output -- Net 798.33 ml Past Medical History: Medical History[1] LABS: CBC: Recent Labs 04/18/25 1322 04/19/25 0033 WBC 9.7 11.4* RBC 5.05 4.52 HGB 15.4 14.1 HCT 46.6 41.4 MCV 92.3 91.6 RDW 13.1 13.0 PLT 253 225 BMP: Recent Labs 04/18/25 1322 04/19/25 0033 NA 139 138 K 3.6 3.2* CL 102 107 CO2 23 20* BUN 20 20 CREATININE 1.36* 1.12* GLUCOSE 108 94 CALCIUM 9.6 8.7* ANIONGAP 14* 11 LIVER PROFILE: Recent Labs 04/18/25 1322 04/19/25 0033 AST 22 16 ALT 10 6 BILITOT 0.7 0.6 ALKPHOS 180* 157* PROT 6.9 5.9* PT/INR: Recent Labs 04/18/25 1322 PROTIME 10.6 INR 1.0 CARDIAC ENZYMES: No results for input(s): "TROPONINI" in the last 72 hours. Procalcitonin: No results found for: PROCAL COVID-19 PCR: No results for input(s): "COVID19" in the last 72 hours. Objective: Vitals: BP 122/88 (BP Location: Right arm, Patient Position: Sitting) Pulse 64 Temp 36.1 C (96.9 F) (Temporal) Resp 15 Ht 5' 2.01" (1.575 m) Wt 184 lb 15.5 oz (83.9 kg) SpO2 95% BMI 33.82 kg/m Pulse Ox: SpO2 Av.7 % Min: 91 % Max: 99 % Supplemental O2: Physical Exam Constitutional: Appearance: She is not ill-appearing. Cardiovascular: Rate and Rhythm: Normal rate and regular rhythm. Abdominal: General: There is no distension. Palpations: Abdomen is soft. Tenderness: There is no abdominal tenderness. Skin: General: Skin is warm. Findings: No rash. Neurological: Mental Status: She is alert. Medications: Scheduled PRN Scheduled Meds[2] PRN Meds[3] Continuous Continuous Meds[4] Assessment Data: (CAT1) Reviewed 2 notes from different specialty or health system (each=1). (CAT1) Reviewed 2 labs/studies ordered by another provider not previously counted (each=1, panels count as 1). Acute, acute on chronic, unstable/uncontrolled chronic problems/diagnoses: Retinal artery occlusion/possible sub acute stroke Vertebral artery narrowing Suspect vascular dementia- not diagnosed- significant volume loss on CT Carotid artery stenosis Essential htn Nicotine dependence Stable chronic problems affecting care, new non-acute diagnoses: Hypothyroidism- synthroid 2. Chronic bronchitis- never diagnosed or worked up for copd Plan As a result of the above findings & factors, the following mgmt was pursued: - Patient was admitted to hospital for further evaluation and care of possible retinal artery occlusion with possible subacute stroke, vertebral artery narrowing. Neurology is consulted and consultation is pending, MRI brain is ordered and pending, echocardiogram is pending. Continue aspirin and statin. Eventually PT and OT evaluation. Passed swallow evaluation, regular solid thin liquid, - am labs, replace lytes prn - PT/OT/CM/SW - delirium precautions: increase activity and limit nighttime disturbances - DVT prophylaxis: enoxaparin and encourage ambulation Advance Directive: Full Code Anticipated Discharge - Date -1 to 2 days - Location - Home - Pending the following -medical workup and stabilization Total time spent (which include face to face and non face to face encounters) : 51 minutes Extended Emergency Contact Information Primary Emergency Contact: Piper Hamilton (POA) Mobile Relation: Louis Holland MD Division of Hospitalist Medicine [facility] [1] Past Medical History: Diagnosis Date Disease of thyroid gland Hypertension 01/01/2024 [2] amLODIPine, 5 mg, Oral, Daily aspirin, 81 mg, Oral, Daily Or aspirin, 300 mg, Rectal, Daily atorvastatin, 40 mg, Oral, Nightly cholecalciferol, 1,000 Units, Oral, Daily escitalopram, 10 mg, Oral, Daily levothyroxine, 112 mcg, Oral, qAM AC meclizine, 12.5 mg, Oral, Daily nicotine, 1 patch, TransDERmal, Daily sodium chloride 0.9%, 5-40 mL, IntraVENous, q12h [3] PRN medications: acetaminophen OR acetaminophen, bisacodyl, labetalol, ondansetron ODT OR ondansetron, sodium chloride, sodium chloride 0.9% [4] sodium chloride, 50 mL/hr, Last Rate: 50 mL/hr (04/19/25 0521) sodium chloride, 50 mL/hr Images from the original note were not included. Speech-Language Pathology SPEECH LANGUAGE PATHOLOGY [facility] Bedside Swallow Evaluation Patient Name: Diana oKhli Evaluation Date: 04/19/2025 Date of : 1940 Admission Date: 04/18/2025 12:40 PM Age: 84 y.o. [facility] IMPRESSION: No s/s oropharyngeal dysphagia. Intermittent overt clinical s/s pulmonary compromise with PO. Risk factors for aspiration include missing dentition. RECOMMENDATION: Recommend Regular solids and Thin liquids and meds as tolerated and the following precautions: - Upright positioning for all PO intake - Slow rate of intake - Small bites/sips - No straws Dysphagia NOMS: Level 6: Swallowing is safe, and individual eats and drinks independently and requires no more than minimal cueing. Individual usually self-cues when difficulty occurs. May need to avoid specific food items (e.g., popcorn) or require additional time (due to difficulty with mastication). Pt would benefit from skilled acute EXPERIMENTAL ASSEMBLER services to ensure patient tolerance of the recommended diet and formal instruction of swallow strategies. Frequency: 3 days/wk for 2 weeks Barriers: Medical complications Prognosis: excellent D/C Recommendations: to be determined Subjective Patient alert and cooperative. Seen upright in bedside chair. Answers all basic questions with clear vocal quality. Follows all basic commands. No visitors at bedside. Spoke with RN Amarilis who cleared pt to be evaluated. 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 Answer: without enteral medications 04/18/252236 Tube Feeding: no Tracheostomy: no Recent Chest Xray/CT of Chest: No results found for this visit on 04/18/25. Oxygen: Oxygen Therapy: None (Room air) Past Medical History: Medical History[1] Past Surgical History: Surgical History[2] Admission Diagnosis: Patient Active Problem List Diagnosis Date Noted Acute loss of vision, left 04/18/2025 Hypertension 01/01/2024 Submental abscess 12/31/2023 Cellulitis of submental space 12/29/2023 History of Present Illness: Diana is a 84 y.o. female with past medical history hypothyroidism, hypertension who is a current smoker for > 60 years presented to the Ed from her ophthalmology appointment. Symptoms originally started on Monday in the middle of the night. Patient went to bed normal. She woke up the first time at 2 AM went to the bathroom and was okay. Around 4 AM she woke up with blurry vision of her left eye. She called her granddaughter who recommended she report to the emergency department. She presented to the emergency department on April 17 for painless monocular vision loss. She wears bifocal glasses her blood pressure was elevated 191/103 and manual recheck was 180/90. CT head without IV contrast, CRP and sed rate was ordered. Stat lab exam showed normal vasculature in the anterior and posterior chamber. Tonometry was unable to be performed secondary to instrument malfunction. CT head no intracranial hemorrhage and no evidence of acute intracranial process. Case was discussed with ophthalmology who did not see need for acute inpatient workup and the plan was for patient to follow-up as outpatient. 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 Patient again presented to the ED for further workup and management. On presentation to the emergency department temperature 36.1, heart rate 67, respirations 18, blood pressure 182/ 92, 97% on room air. CT head and neck significant for moderate diffuse parenchymal volume loss, likely chronic small vessel ischemic changes and periventricular white matter. No acute intracranial abnormality. CTA of head/neck demonstrated calcification of the bilateral carotid bifurcations with associated Stenosis. Slight distal to the origin of the left internal carotid artery is approximately 60% stenosis and approximate 40% short segment narrowing of the right internal carotid artery. There is narrowing of the proximal left vertebral artery. Acute, acute on chronic, unstable/uncontrolled chronic problems/diagnoses: Retinal artery occlusion/possible sub acute stroke Vertebral artery narrowing Suspect vascular dementia- not diagnosed- significant volume loss on CT Carotid artery stenosis Essential htn Nicotine dependence Stable chronic problems affecting care, new non-acute diagnoses: Hypothyroidism- synthroid 2. Chronic bronchitis- never diagnosed or worked up for copd Patient Complaint: Patient states that she coughed while taking her medications with a straw sip of water, however patient states that she never uses straws at home. Pain: Pt denies any current pain. PPE Worn: gloves Objective Bedside swallow eval completed. Patient presents with mild oral and pharyngeal phase deficits. Oral Motor Mechanism Dentition - upper partial Oral Hygiene: clean Swallowing Examination PO Trials - ice chips, (teaspoon, fed by clinician) - thin liquid, (teaspoon, cup edge, fed by clinician, self administered) - puree, (teaspoon, fed by clinician) - soft and bite sized solids - regular solids Oral Phase Pt with adequate oral receipt of PO trials. No anterior spillage. Mastication with regular textures appeared prolonged and complete. Oral transit time appears WFL. No oral residue. Additional Observations: Patient is aware that it takes her extra time to eat. She takes the time she needs to adequately consume her food. Pharyngeal Phase Hyolaryngeal excursion clinically appears adequate and timely per palpation. One-two swallows palpated per bolus, likely indicative of adequate pharyngeal clearance. No overt clinical s/s pulmonary compromise as evidenced by no cough, no throat clear, and no change in vocal quality. Additional Observations: Since patient does not utilize straws at baseline, they were not tested. Her swallows with thin liquids by spoon and cup are audible, but there is no change in vocal quality or cough noted. Education Education Given: swallowing strategies, diet recommendations Given To: patient and RN Response: verbalizes understanding Goals Patient Stated Goal: To have more applesauce. 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 PHYSICAL THERAPY [facility] Initial Evaluation Name/MRN: Diana Kohli ([id number]) Evaluation Date: 04/19/2025 Date of : 1940 Admission Date: 04/18/2025 12:40 PM Age: 84 y.o. Room[facility] Discharge Recommendation: Home with assist PRN, Home with Home health PT Equipment Needed: No Assessment IMPRESSION: Patient admitted to hospital due to acute loss of left vision. A&O x 3. CGA emerging SBA for all functional mobility including transfers, ambulation, and stairs without assistive device. No complaints of pain. No outright loss of balance observed. Recommending home with home health PT and assist PRN. Admitting Diagnosis: acute loss of left vision Prognosis: good Performance Deficits /Impairments: Increased Pain, Decreased Functional Mobility, Decreased ADL status, Decreased Strength, Decreased Endurance, Decreased Balance, and Decreased Posture Decision Making: Low Complexity Subjective Patient sitting at edge of bed with nurse aide present following shower. Patient reports feeling well other than left vision deficits. No complaints of pain reported. Pain: Pt denies any current pain. Past Medical History: Medical History[1] Past Surgical History: Surgical History[2] Admission Diagnosis: Patient Active Problem List Diagnosis Date Noted Acute loss of vision, left 04/18/2025 Hypertension 01/01/2024 Submental abscess 12/31/2023 Cellulitis of submental space 12/29/2023 Medical Precautions: No active isolations Proper PPE donned/doffed in accordance with facility standards. Fall Risk: [place] Fall Risk Score: 35 (Medium Risk) Precautions/Restrictions: Lines/Drains/Airways: Tele Fall Precautions Family/Caregiver Present: none Overall Cognitive Status: WFL Overall Orientation Status: Oriented to Place, Oriented to Time, and Oriented to Person Vision: Not Assessed Hearing: normal Social/Functional History Patient admitted from home. Lives With: Alone Type of Home: single family home Home Layout: Single Level Home Home Access: Stairs to Enter with Rails (# of stairs: 3) Bathroom Shower/Tub: Toilet: N/A Home Equipment: none Homemaking Responsibilities: Independent Receives Help From: None Active Vice President Talent Management: Prior Level of Function Prior Level of ADL Function: Independent Prior Level of Mobility: Independent; Device: None Prior Level of Transfers: Independent Objective Lower Extremity Assessment AROM: WFL PROM: WFL Strength: Exceptions: 4/5 bilateral LE Sensation: WFL Balance: Balance During Session: Posture: fair Sitting - Static: SBA Sitting - Dynamic: SBA Standing - Static: Contact Guard Standing - Dynamic: Contact Guard Bed Mobility: Supine to sit: Contact Guard Sit to supine: Contact Guard Transfers Sit to stand: Contact Guard Stand to sit: Contact Guard Emerging SBA x 3 trials Ambulation Ambulation 1 Assistive device(s) used: None Assist level: Contact Guard Distance (ft): 65 Quality of gait: No LOB, reciprocal stepping, uneven step length, narrow DELILAH, slow dewey, postural sway, Emerging SBA Ambulation 2 Assistive device(s) used: None Assist level: Contact Guard Distance (ft): 65 Quality of gait: No LOB, reciprocal stepping, uneven step length, narrow DELILAH, slow dewey, postural sway, emerging SBA Ambulation 3 Assistive device(s) used: None Assist level: Contact Guard Distance (ft): 80 Quality of gait: No LOB, reciprocal stepping, uneven step length, narrow DELILAH, slow dewey, postural sway, emerging SBA Stairs Stairs 1 Assistive device(s) used: None Assist level: Contact Guard # of steps: 4 Rails: right Additional factors: non-reciprocal going up, non-reciprocal going down Outcome Measures AM-PAC How much HELP from another person do you currently need Turning from your back to your side while in a flat bed without using bedrails?: A Little Moving from lying on your back to sitting on the side of a flat bed without using bedrails?: A Little Moving to and from a bed to a chair (including a wheelchair)?: A Little Standing up from a chair using your arms (wheelchair or bedside chair)?: A Little Walking in a hospital room?: A Little Stair climbing assessed?: Yes Climbing 3-5 steps with a railing?+: A Little AM-PAC Inpatient Mobility Raw Score : 18 AM-[facility] Inpatient Mobility Raw Score (No Stairs) : 15 JH-HLM -HLM Score: Walked 25 ft or more (i.e. walked outside of room) Plan Pt would benefit from skilled acute PT services to address Strengthening, ROM, Gait Training, Balance Training, Functional Mobility Training, Endurance Training, and Stair Training. Frequency: 2x/weekfor 4 weeks Barriers: Pain, Impaired balance, Lower extremity weakness, Upper extremity weakness, Decreased endurance, and Stairs at home Safety/Education Safety Safety Devices in place: All fall risk precautions in place, call light within reach, left in chair, gait belt, patient at risk for falls, nurse notified, and no alarms engaged upon entry Restraints: No Education Education Given To: patient Education Provided: PT Role, PT Goals, Gait Training, Plan of Care, Transfer Training, Fall Prevention Education, Discharge Recommendations, and Benefits of Increasing Activity Education Method: Verbal Barriers to Learning: None Education Outcome: Verbalized Understanding and Demonstrated Understanding Goals Patient Stated Goal: To get home Encounter Problems Encounter Problems (Active) Balance Patient will maintain dynamic standing balance for 10 minutes with modified independence in order to demonstrate decreased risk of falling. Start: 04/19/25 Expected End: 05/17/25 Mobility Patient will ambulate 150 feet with independence and no assistive device in order to improve safety and independence with mobility. Start: 04/19/25 Expected End: 05/17/25 Patient will ascend and descend 6 stairs with handrail and modified independence in order to safely negotiate home. Start: 04/19/25 Expected End: 05/17/25 Transfers Patient will perform bed mobility with modified independence in order to improve independence and prepare for out of bed mobility. Start: 04/19/25 Expected End: 05/17/25 Patient will complete sit to stand transfer with modified independence to none in order to improve safety and prepare for out of bed mobility. Start: 04/19/25 Expected End: 05/17/25 Therapy Time Individual Co-Treatment Co-Evaluation Time In 829 Time Out 0853 Minutes 23 Timed Code Treatment Minutes: 8 Minutes (1 Gait) Sandro Hughes PT Patient's Physical Therapy Plan of Care supervision is transferred to a [facility] Physical Therapist. Goals and/or treatment plan was established in collaboration with patient/family/other representatives. [1] Past Medical History: Diagnosis Date Disease of thyroid gland Hypertension 01/01/2024 [2] Past Surgical History: Procedure Laterality Date CHOLECYSTECTOMY NECK EXPLORATION 01/02/2024 INCISION AND DRAINAGE DEEP ABCESS OR HEMATOMA SOFT TISSUE NECK OR THORAX documented in this encounter [facility] 04-19-2025 Consult note Formatting of th is note is different from the original. INITIAL CONSULT NOTE. STROKE SERVICE Patient Name: Diana Kohli Patient : 1940 Acct: [id number] Date of Admission: 04/18/2025 [facility] PCP: Charlene Walker MD History of Present Ilness: Diana Kohli is an 84-year-old right-handed female who presented to the emergency department here at [facility] originally on 04/17/2025 with complaints ofDecreased vision in her left eye. She states that she woke up on that day and could not see hearing out of her left eye. She can perceive some light but really could not see anything else. She was seen in the emergency department and discharged with plans to be followed up with ophthalmology. She had a sed rate and CRP done in the emergency room and these were normal. CT scan of the brain was done at that time and did not reveal any significant abnormality. She was then seen by ophthalmology who diagnosed her with a central retinal artery occlusion and sent her back to the emergency room for further workup. She then underwent a CT scan of the brain, CT angiogram of the head and neck and MRI. She was noted to have about a 60% stenosis with mixed soft and calcified plaque in the proximal left internal carotid artery. MRI of the brain did not reveal any evidence of acute or chronic appearing strokes. Transthoracic echocardiogram revealed an ejection fraction of 55% and normal left atrium. She continues to have decreased vision in the left eye and is able to sense motion and light but cannot count fingers at 18 inches from her face. Her right visual sharma are normal. The remainder of her neuroexam is normal. Other findings include hemoglobin A1c of 5.6 and LDL of 105. She is currently on atorvastatin 40. She has been hypertensive since she her admission and her amlodipine has been increased from 5 to 10 mg. She has been cleared by therapies for discharge home. IMPRESSION: Left CRAO. 2. Likely symptomatic left internal carotid artery stenosis of about 60%. PLAN: -The patient was admitted on the ischemic stroke protocols. -Continue per internal medicine. - Continue blood pressure management with ultimate target of less than 140mmHg in the outpatient setting - She should be continued on dual antiplatelet therapy and statin until such time as she is seen by endovascular neurology in the outpatient setting for possible stent. - Referral has been made they will be seeing her in the outpatient setting soon for evaluation. - From our standpoint she can be discharged home with the outpatient follow-up as noted. ROS; 14 system review of systems was performed and is negative except for those symptoms in the HPI. Past Medical History: @PMHH@ Past Surgical History: @PS@ Home Medications: Prior to Admission medications Medication Sig Start Date End Date Taking? Authorizing Provider amLODIPine (Norvasc) 5 MG tablet Take 5 mg by mouth before bedtime. Yes Historical Provider, aspirin 81 MG EC tablet Take 81 mg by mouth daily. Yes Historical Provider, cholecalciferol (Vitamin D-3) 25 MCG (1000 UT) capsule Take 1,000 Units by mouth daily. Yes Historical Provider, escitalopram (Lexapro) 10 MG tablet Take 10 mg by mouth daily. Yes Historical Provider, levothyroxine (Synthroid, Levoxyl) 112 MCG tablet Take 112 mcg by mouth every morning (before breakfast). Yes Historical Provider, meclizine (Antivert) 25 MG tablet Take 12.5 mg by mouth in the morning. Yes Historical Provider, Current Hospital Medications: Current Medications[1] Continuous Infusions: Continuous Meds[2] Allergies: Patient has no known allergies. Social History: TOBACCO: reports that she has been smoking cigarettes. She started smoking about 17 years ago. She has a 17.3 pack-year smoking history. She has never used smokeless tobacco. ETOH: reports that she does not currently use alcohol. RECREATIONAL DRUG USE: Social History Substance and Sexual Activity Drug Use Not Currently Family History: :no pertinent family history identified in this patient @[facility] Physical Examination: Patient Vitals for the past 8 hrs: BP Temp Temp src Pulse Resp SpO2 04/19/25 1527 (!) 182/93 -- -- 69 -- -- 04/19/25 1435 (!) 201/97 (!) 35.9 C (96.6 F) Temporal 68 12 97 % 04/19/25 0923 122/88 36.1 C (96.9 F) Temporal 64 15 95 % I/O last 3 completed shifts: In: 798.3 (9.5 mL/kg) [I.V.:798.3 (9.5 mL/kg)] Out: - (0 mL/kg) Weight: 83.9 kg General Physical Examination: General: HEENT:Normocephalic, atraumaticl CV: S1+S2, RRR, no MRG. Abdomen: Soft NT/ND. BS + Skin: Intact without ulcers, breakdowns or discoloration Extremities: normal with no edema or cyanosis Pulses: Intact peripherally Carotid auscultation :No bruits Neurological Examination: Higher Functions: Mental Status Exam: Level of Alertness:Awake Orientation: Normal to self, time, place Memory: Normal Fund of Knowledge: Normal Language: Normal Dysarthria : not present Cranial Nerves: -II Visual sharma: light perception and movement only in the left eye. VF are full in the right eye -III equal, round, reactive to light -III-IV- Extraocular Movements: intact -Nystagmus not present -Saccades and pursuits normal -V Facial sensation: intact, Corneals + bilaterally -VII Facial strength: intact -VIII Hearing: intact -IX-X- Gag reflex present -X Palate:intact -XI Shoulder shrug: "intact"normal -XII Tongue movement: normal Motor Examination: Tone after evaluation of 4 limbs, the following findings applied: Normal . . -Bulk: normal -Muscle Strength: after evaluation of all limbs, and axial musculature the following findings applied: Drift: absent normal -Reflexes: after evaluation of 4 limbs, the following findings applied ; normal all limbs -Plantar responses: Flexor bilaterally Sensory Examination: Intact to light touch, pain / temperature, proprioception, Coordination: Arms Normal finger to nose Legs Intact heel knee butler testing Tremors not present Gait normal NIH Stroke Score: 1A: Level of Consciousness [x] Alert; keenly responsive 0 [] Arouses to minor stimulation +1 [] Requires repeated stimulation to arouse +2 [] Movements to Pain +2 [] Postures or Unresponsive +3 1B: Ask Month and Age [x] Both Questions Correct 0 [] 1 Question Correct +1 [] 0 Questions Correct +2 [] Dysarthric/Intubated/ Trauma/Language Barrier +1 [] Aphasic +2 1C: 'Blink Eyes' & 'Squeeze Hands' [x] Performs Both Tasks 0 [] Performs 1 Task+1 [] Performs 0 Tasks+2 2: Horizontal Extraocular Movements [x] Normal 0 [] Partial Gaze Palsy: Can Be Overcome +1 [] Partial Gaze Palsy: Corrects with Oculocephalic Reflex +1 [] Forced Gaze Palsy: Cannot Be Overcome +2 3: Visual Sharma [] No Visual Loss 0 [x] Partial Hemianopia +1 [] Complete Hemianopia +2 [] Patient is Bilaterally Blind +3 [] Bilateral Hemianopia +3 4: Test Facial Palsy(Use Grimace if Obtunded) [] Normal symmetry 0 [] Minor paralysis (flat nasolabial fold, smile asymetry) +1 [] Partial paralysis (lower face) +2 [] Unilateral Complete paralysis (upper/lower face) +3 [] Bilateral Complete paralysis (upper/lower face) +3 5A: Left Arm Motor [x] No Drift for 10 Seconds 0 [] Drift, but doesn't hit bed +1 [] Drift, hits bed +2 [] Some Effort Against Sunflower +2 [] No Effort Against Sunflower +3 [] No Movement +4 [] Amputation/Joint Fusion 0 5B: Right Arm Motor [x] No Drift for 10 Seconds 0 [] Drift, but doesn't hit bed +1 [] Drift, hits bed +2 [] Some Effort Against Sunflower +2 [] No Effort Against Sunflower +3 [] No Movement +4 [] Amputation/Joint Fusion 0 6A: Left Leg Motor [] Amputation/Joint Fusion 0 [x] No Drift for 5 Seconds 0 [] Drift, but doesn't hit bed +1 [] Drift, hits bed +2 [] Some Effort Against Sunflower +2 [] No Effort Against Sunflower +3 [] No Movement +4 6B: Right Leg Motor [x] No Drift for 5 Seconds 0 [] Drift, but doesn't hit bed +1 [] Drift, hits bed +2 [] Some Effort Against Sunflower +2 [] No Effort Against Sunflower +3 [] No Movement +4 [] Amputation/Joint Fusion 0 7: Limb Ataxia [] Does Not Understand 0 [] Paralyzed 0 [x] No Ataxia 0 [] Ataxia in 1 Limb +1 [] Ataxia in 2 Limbs +2 [] Amputation/Joint Fusion 0 8: Sensation [x] Normal; No sensory loss 0 [] Mild-Moderate Loss: Less Sharp/More Dull +1 [] Mild-Moderate Loss: Can Sense Being Touched +1 [] Complete Loss: Cannot Sense Being Touched At All +2 [] No Response and Quadriplegic +2 [] Coma/Unresponsive +2 9: Language/Aphasia [x] Normal; No aphasia 0 [] Mild-Moderate Aphasia: Some Obvious Changes, Without Significant Limitation +1 [] Severe Aphasia: Fragmentary Expression, Inference Needed, Cannot Identify materials +2 [] Mute/Global Aphasia: No Usable Speech/Auditory Comprehension +3 [] Coma/Unresponsive +3 10: Dysarthria [x] Normal 0 [] Mild-Moderate Dysarthria: Slurring but can be understood +1 [] Severe Dysarthria: Unintelligble Slurring or Out of Proportion to Dysphasia +2 [] Mute/Anarthric +2 [] Intubated/Unable to Test 0 11: Extinction/Inattention [x] No abnormality 0 [] Visual/tactile/auditory/spatial/perso nal inattention +1 [] Extinction to bilateral simultaneous stimulation +1 [] Profound rasheeda-inattention (ex: does not recognize own hand) +2 [] Extinction to >1 modality +2 NIH score is 2. Results Labs: Last 24hrs Recent Results (from the past 24 hours) Comprehensive metabolic panel Collection Time: 04/19/25 12:33 AM Result Value Ref Range SODIUM 138 136 - 145 mmol/L POTASSIUM 3.2 (L) 3.5 - 5.1 mmol/L CHLORIDE 107 98 - 107 mmol/L CARBON DIOXIDE 20 (L) 23 - 31 mmol/L ANION GAP 11 3 - 13 mmol/L UREA NITROGEN 20 9 - 23 mg/dL CREATININE 1.12 (H) 0.57 - 1.11 mg/dL GLUCOSE 94 82 - 115 mg/dL CALCIUM 8.7 (L) 8.8 - 10.0 mg/dL AST (SGOT) 16 <34 U/L ALT 6 <30 U/L ALKALINE PHOSPHATASE 157 (H) 40 - 150 U/L ALBUMIN 3.1 (L) 3.4 - 4.8 g/dL BILIRUBIN, TOTAL 0.6 <1.2 mg/dL TOTAL PROTEIN 5.9 (L) 6.4 - 8.3 g/dL eGFR 49.2 (L) >60.0 mL/min/1.73m*2 Hemoglobin A1c Collection Time: 04/19/25 12:33 AM Result Value Ref Range HEMOGLOBIN A1C 5.6 <5.7 %HbA1C ESTIMATED AVERAGE GLUCOSE 114 mg/dL Lipid panel - fasting Collection Time: 04/19/25 12:33 AM Result Value Ref Range TRIGLYCERIDE 95 <150 mg/dL CHOLESTEROL 172 <200 mg/dL HDL CHOLESTEROL 48 (L) >=60 mg/dL CHOL/HDL 4 VERY LOW DENSITY LIPOPROTEIN, CALCULATED 19 <=30 mg/dL NON-HDL CHOLESTEROL, CALCULATED 124 <130 LOW DENSITY LIPOPROTEIN 105 (H) 0 - <100 mg/dL CBC Collection Time: 04/19/25 12:33 AM Result Value Ref Range Auto WBC 11.4 (H) 3.6 - 10.7 10*3/uL RBC 4.52 3.80 - 5.20 10*6/uL Hemoglobin 14.1 11.7 - 16.0 g/dL Hematocrit 41.4 35.0 - 47.0 % MCV 91.6 77.0 - 99.0 fL MCH 31.2 26.0 - 34.0 pg MCHC 34.1 30.5 - 36.0 % RDW 13.0 11.5 - 15.0 % Platelets 225 140 - 440 10*3/uL MPV 9.4 9.0 - 12.7 fL Magnesium Collection Time: 04/19/25 12:33 AM Result Value Ref Range MAGNESIUM 2.1 1.6 - 2.6 mg/dL Transthoracic echocardiogram (TTE) complete with contrast, bubble, strain, and 3D PRN Collection Time: 04/19/25 10:55 AM Result Value Ref Range IVSd 1.0 (A) 0.6 - 0.9 cm LVIDd 4.7 3.9 - 5.3 cm LVIDs 3.4 cm LVOT Diameter 2.0 cm LVPWd 0.9 0.6 - 0.9 cm EF BP 55 55 - 100 % LV Ejection Fraction A2C 54 % LV Ejection Fraction A4C 56 % LV EDV A2C 79 mL LV EDV A4C 54 mL LV EDV BP 66 56 - 104 mL LV ESV A2C 36 mL LV ESV A4C 25 mL LV ESV BP 30 19 - 49 mL LVOT Cardiac Output 3.8 liter/minute LVOT Peak Gradient 3 mmHg LVOT Mean Gradient 2 mmHg LVOT SV 69.4 ml LVOT Peak Velocity 0.9 m/s LVOT VTI 22.1 cm RV Longitudinal Dimension 6.6 cm RV Mid Dimension 2.5 cm RV Basal Dimension 3.2 cm RV Free Wall Peak S' 9 cm/s RVOT Peak Gradient 3 mmHg RVOT Mean Gradient 2 mmHg RVOT Peak Velocity 0.8 m/s RVOT VTI 22.2 cm LA Diameter 3.0 cm LA Volume A/L 37 mL LA Volume 2C 40 22 - 52 mL LA Volume 4C 27 22 - 52 mL LA Volume BP 34 22 - 52 mL RA Area 4C 29.6 mL AV Area by Peak Velocity 2.0 cm2 AV Area by VTI 2.3 cm2 AV Peak Gradient 7 mmHg AV Mean Gradient 3 mmHg AV Peak Velocity 1.3 m/s AV Mean Velocity 0.9 m/s AV VTI 28.7 cm MV A Velocity 0.62 m/s MV E Wave Deceleration Time 299.6 ms MV E Velocity 0.45 m/s LV E' Lateral Velocity 9 cm/s LV E' Septal Velocity 6 cm/s MV Area by VTI 3.6 cm2 MV Peak Gradient 3 mmHg MV Mean Gradient 1 mmHg MV Max Velocity 0.8 m/s MV Mean Velocity 0.5 m/s MV VTI 19.4 cm PV Peak Gradient 3 mmHg PV Mean Gradient 2 mmHg PV Max Velocity 0.9 m/s PV Mean Velocity 0.6 m/s TAPSE 1.7 >=1.7 cm TR Max Velocity 2.60 m/s Ascending Aorta 3.5 cm IVC Diameter 1.4 cm Fractional Shortening 2D 28 28 - 44 % LV ESV Index BP 16 mL/m2 LV EDV Index BP 36 mL/m2 LV ESV Index A4C 14 mL/m2 LV EDV Index A4C 29 mL/m2 LV ESV Index A2C 19 mL/m2 LV EDV Index A2C 43 mL/m2 LVIDd Index 2.54 cm/m2 LVIDs Index 1.84 cm/m2 LV RWT Ratio 0.38 LV Mass 2D 153.4 67 - 162 g LV Mass 2D Index 82.9 43 - 95 g/m2 MV E/A 0.73 E/E' Ratio (Averaged) 6.25 E/E' Lateral 5.00 E/E' Septal 7.50 LA Volume Index BP 18 16 - 34 ml/m2 LA Volume Index A/L 20 16 - 34 mL/m2 LVOT Stroke Volume Index 37.5 mL/m2 LVOT Area 3.1 cm2 LA Volume Index 2C 22 16 - 34 mL/m2 LA Volume Index 4C 15 (A) 16 - 34 mL/m2 LA Size Index 1.62 cm/m2 Ascending Aorta Index 1.89 cm/m2 AV Velocity Ratio 0.69 LVOT:AV VTI Index 0.77 APARNA/BSA VTI 1.2 cm2/m2 APARNA/BSA Peak Velocity 1.1 cm2/m2 MV:LVOT VTI Index 0.88 Est. RA Pressure 3 mmHg Aortic Sinus Valsalva 3.2 cm Aortic Sinus Valsalva Index 1.73 cm/m2 RVSP 30 mmHg Sinotubular Junction 2.6 cm Radiology (Personally reviewed): CT head wo IV contrast Result Date: 04/18/2025 Patient Name: DIANA KOHLI : 1940 Exam Date/Time: 04/18/2025 14:15 Procedure: CT HEAD WO IV CONTRAST Ordering Provider: BORREGO SAMANTHA Reason For Exam: Neuro deficit, acute, stroke suspected Examination: CT head Technique: Axial CT images of the head were obtained without IV contrast at 5 mm intervals. Dose reduction was employed with automatic exposure control. Coronal and sagittal reconstructions were also provided Indication: Concern for left retinal artery occlusion Findings: Moderate diffuse parenchymal volume loss is noted, evidence by prominence of the ventricles and sulci. Fairly extensive decreased attenuation is noted within the periventricular white matter, likely secondary to chronic small vessel ischemia. The salazar-white differentiation is grossly intact. There are no extra-axial fluid collections or acute intracranial hemorrhage appreciated. There is no midline shift identified. Question small remote infarct, posterior left cerebellum. Mild mucoperiosteal thickening of the ethmoid air cells. Otherwise, the paranasal sinuses are grossly clear. The mastoid air cells are grossly unremarkable.. The bones are grossly unremarkable. Atherosclerotic calcification of the carotid siphons and distal vertebral arteries is noted. Impression: Likely chronic small vessel ischemic changes in the periventricular white matter. No acute intracranial abnormality. Examination: CT angiogram of head Indication: Concern for left retinal artery occlusion Technique: Thin section axial CTA images of the intracranial circulation were obtained at 0.5 mm intervals following the administration of intravenous contrast (75 mL Isovue 370). Dose reduction was employed with automatic exposure control. Coronal and sagittal reconstructed images were also provided for review. Images were reformatted on a 3-D workstation concurrently by myself with volume rendering. Findings: Calcification of the bilateral carotid siphons. There is significant calcification, atherosclerosis and narrowing of the cranial segment of the left vertebral artery with high-grade stenosis measuring at least 75-80 percent. The anterior and posterior circulation are grossly intact. No abnormal branch cutoff is demonstrated. There is no sizable intracranial aneurysm. There is filling of the ophthalmic artery and some of its branch vessels vessels within the bilateral orbits, however assessment of the retinal artery is limited on this study. There is subtle vascular enhancement about the bilateral optic nerves, however. The bilateral globes are unremarkable on this study. The dural venous sinuses are grossly patent. Impression: Ophthalmic arteries and some of its branch vessels appear patent. 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 Grossly patent intracranial vasculature without large vessel occlusion. Dense calcification of the carotid siphons. Examination: CT angiogram neck Indication: Concern for left retinal artery occlusion Technique: Axial CT angiographic images of the neck were obtained with IV contrast (75 mL Isovue 370) at 0.5 mm intervals from level the nasopharynx to the thoracic inlet. Dose reduction was employed with automatic exposure control. Coronal and sagittal reconstructed images were also provided for review. Images were reformatted on a separate 3-D workstation by myself and reviewed with volume rendering. NASCET criteria was used to assess stenoses noted on this exam (if present). Findings: The bilateral common carotid arteries are grossly patent. There is calcification of the bilateral carotid bifurcations. Approximate 40 percent narrowing of the right internal carotid artery origin, secondary to calcified plaque. Approximate 60 percent short segment stenosis of the proximal left internal carotid artery as noted on coronal image 111 and axial image 433, series 3. The bilateral external carotid arteries are patent. No acute vascular dissection is noted. The dominant right cervical vertebral artery. The left vertebral artery is slightly small in caliber throughout. There does appear to be significant narrowing of the proximal left vertebral artery at its origin and slightly distal to this measuring at least 50 percent or slightly greater. The bilateral cervical vertebral arteries are otherwise grossly patent. There is significant calcification and soft plaque of the visualized portion of the aortic arch. Mild to moderate degenerative changes of the cervical spine with mild reversal of cervical lordosis. At least moderate degenerative changes at the C1-C2 articulation. Impression: Calcification of the bilateral carotid bifurcations with associated stenosis. Slightly distal to the origin of the left internal carotid artery there is approximate 60 percent stenosis. Approximate 40 percent short segment narrowing of the right internal carotid artery origin. Narrowing of the proximal left vertebral artery. CTA of the head is detailed above in a separate report. Report Dictated on Electronically Signed By: Jose Alberto Romero MD Electronically Signed Date/Time: 04/18/2025 2:[address] head wo IV contrast Result Date: 04/17/2025 [facility] 1940 [id number] Exam Date/Time: 04/17/2025 11:29 Procedure: CT HEAD WO IV CONTRAST Ordering Provider: DAY MARY Reason For Exam: Vision loss, monocular CLINICAL INFORMATION: Acute left-sided vision loss. 3 mm axial cuts through the head are obtained without IV contrast. Dose reduction was employed with automated exposure control. There are no comparison studies. FINDINGS: The ventricles are within normal limits in respect to their size and configuration. There is no evidence of mass or mass-effect. There are no abnormal intra- or extra-axial fluid collections. No hemorrhage is identified. There is moderate cortical atrophy. Patchy/confluent low-attenuation is noted within the periventricular, deep, and subcortical white matter. 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 There is no CT evidence of an acute infarct. Bone windows demonstrate no evidence of fracture and the visualized paranasal sinuses and mastoid air cells are clear. 1. Atrophy and evidence of small-vessel ischemic disease. This is not unusual for patient age. 2. No intracranial hemorrhage. 3. No CT evidence of an acute intracranial process. Report Dictated on Electronically Signed By: Ganesh Joe MD Electronically Signed Date/Time: 04/17/2025 11:36 AM EDT MR brain wo contrast Result Date: 04/19/2025 [facility]LI [facility] 1940 [id number] Exam Date/Time: 04/19/2025 11:40 Procedure: MR BRAIN WO CONTRAST Ordering Provider: FARLEY MARK Reason For Exam: Neuro deficit, acute, stroke suspected MRI BRAIN WITHOUT CONTRAST INDICATIONS: Neuro deficit, acute, stroke suspected COMPARISON: None TECHNIQUE: Multiplanar, multisequence MRI of the brain was performed without contrast. FINDINGS: Acute Change: No evidence of acute infarction. No fluid collection or intracranial hemorrhage. Mass Lesion: None. Parenchyma: Confluent foci of T2/FLAIR hyperintensity in the supratentorial white matter which most likely represent extensive chronic microvascular ischemic changes. 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 Ventricles and sulci: Moderate generalized brain parenchymal volume loss with proportionate ventricular enlargement. Skull base: Normal appearance of the pituitary gland. Normal position of the cerebellar tonsils. Vessels: The major intracranial flow voids are preserved. Extracranial structures: Normal orbits. No extracranial soft tissue abnormalities. Sinuses/mastoids: Clear Bones: No pathologic marrow infiltration. 1. No acute intracranial abnormalities. 2. Generalized brain parenchymal volume loss and extensive chronic microvascular ischemic changes in the supratentorial white matter. Remote infarcts are noted involving the left cerebral hemisphere Report Dictated on Electronically Signed By: Keyanna Marks MD Electronically Signed Date/Time: 04/19/2025 12:22 PM EDT Transthoracic echocardiogram (TTE) complete with contrast, bubble, strain, and 3D PRN Result Date: 04/19/2025 Left Ventricle: Left ventricle size is normal. Mildly increased wall thickness. Normal left ventricular systolic function. EF by 2D Simpsons Biplane is 55%. Normal wall motion. Right Ventricle: Right ventricle size is normal. Normal systolic function. Pericardium: Evidence of prominent epicardial fat. No pericardial effusion. No significant valvular abnormalities. Technically difficult study. I personally spent [] 25 [x]50 []70 []80 minutes in time for this patient. During that time I performed a face to face diagnostic evaluation of this patient reviewing labs, imaging studies and the electronic medical record; as well as counseling/coordinating care and provided discussion regarding diagnostic impressions and the plan of care with the consulting team Bill Ruiz MD Vascular Neurology [1] Current Facility-Administered Medications: acetaminophen (Tylenol) tablet 650 mg, 650 mg, Oral, q6h PRN OR acetaminophen (Tylenol) suppository 650 mg, 650 mg, Rectal, q6h PRN, Petrona M Dials amLODIPine (Norvasc) tablet 5 mg, 5 mg, Oral, Daily, Petrona M Dials, 5 mg at 04/18/252037 aspirin EC tablet 81 mg, 81 mg, Oral, Daily, 81 mg at 04/19/25 1007 OR aspirin suppository 300 mg, 300 mg, Rectal, Daily, Petrona M Dials atorvastatin (Lipitor) tablet 40 mg, 40 mg, Oral, Nightly, Petrona M Dials, 40 mg at 04/18/252032 bisacodyl (Dulcolax) suppository 10 mg, 10 mg, Rectal, Daily PRN, Petrona M Dials cholecalciferol (Vitamin D-3) tablet 1,000 Units, 1,000 Units, Oral, Daily, Petrona M Dials, 1,000 Units at 04/19/251006 clopidogrel (Plavix) tablet 75 mg, 75 mg, Oral, Daily, Bill Ruiz MD, 75 mg at 04/19/25 1350 escitalopram (Lexapro) tablet 10 mg, 10 mg, Oral, Daily, Petrona M Dials, 10 mg at 04/19/251006 labetalol (Normodyne,Trandate) injection 10 mg, 10 mg, IntraVENous, q10 min PRN, Petrona M Dials levothyroxine (Synthroid, Levoxyl) tablet 112 mcg, 112 mcg, Oral, qAM AC, Petrona M Dials, 112 mcg at 04/19/25 1013 meclizine (Antivert) tablet 12.5 mg, 12.5 mg, Oral, Daily, Petrona M Dials, 12.5 mg at 04/19/25 1012 nicotine (Nicoderm, Step 1) 21 MG/24HR patch 1 patch, 1 patch, TransDERmal, Daily, Petrona M Dials, 1 patch at 04/19/25 1007 ondansetron ODT (Zofran-ODT) disintegrating tablet 4 mg, 4 mg, Oral, q8h PRN OR ondansetron (Zofran) injection 4 mg, 4 mg, IntraVENous, q6h PRN, Petrona M Dials sodium chloride 0.9 % infusion, 5-250 mL/hr, IntraVENous, PRN, Petrona M Dials sodium chloride 0.9% (NS) flush 5-40 mL, 5-40 mL, IntraVENous, q12h, Petrona M Dials, 10 mL at 04/18/25 1322 sodium chloride 0.9% (NS) flush 5-40 mL, 5-40 mL, IntraVENous, PRN, Petrona M Dials [2] [facility] [employer] Work Phone: 04-19-2025 Consult note Formatting of th is note is different from the original. INITIAL CONSULT NOTE. STROKE SERVICE Patient Name: Diana Kohli Patient : 1940 Acct: [id number] Date of Admission: 04/18/2025 [facility] PCP: Charlene Walker MD History of Present Ilness: Diana Kohli is an 84-year-old right-handed female who presented to the emergency department here at [facility] originally on 04/17/2025 with complaints ofDecreased vision in her left eye. She states that she woke up on that day and could not see hearing out of her left eye. She can perceive some light but really could not see anything else. She was seen in the emergency department and discharged with plans to be followed up with ophthalmology. She had a sed rate and CRP done in the emergency room and these were normal. CT scan of the brain was done at that time and did not reveal any significant abnormality. She was then seen by ophthalmology who diagnosed her with a central retinal artery occlusion and sent her back to the emergency room for further workup. She then underwent a CT scan of the brain, CT angiogram of the head and neck and MRI. She was noted to have about a 60% stenosis with mixed soft and calcified plaque in the proximal left internal carotid artery. MRI of the brain did not reveal any evidence of acute or chronic appearing strokes. Transthoracic echocardiogram revealed an ejection fraction of 55% and normal left atrium. She continues to have decreased vision in the left eye and is able to sense motion and light but cannot count fingers at 18 inches from her face. Her right visual sharma are normal. The remainder of her neuroexam is normal. Other findings include hemoglobin A1c of 5.6 and LDL of 105. She is currently on atorvastatin 40. She has been hypertensive since she her admission and her amlodipine has been increased from 5 to 10 mg. She has been cleared by therapies for discharge home. IMPRESSION: Left CRAO. 2. Likely symptomatic left internal carotid artery stenosis of about 60%. PLAN: -The patient was admitted on the ischemic stroke protocols. -Continue per internal medicine. - Continue blood pressure management with ultimate target of less than 140mmHg in the outpatient setting - She should be continued on dual antiplatelet therapy and statin until such time as she is seen by endovascular neurology in the outpatient setting for possible stent. - Referral has been made they will be seeing her in the outpatient setting soon for evaluation. - From our standpoint she can be discharged home with the outpatient follow-up as noted. ROS; 14 system review of systems was performed and is negative except for those symptoms in the HPI. Past Medical History: @[facility]@ Past Surgical History: @[facility]@ Home Medications: Prior to Admission medications Medication Sig Start Date End Date Taking? Authorizing Provider amLODIPine (Norvasc) 5 MG tablet Take 5 mg by mouth before bedtime. Yes Historical Provider, aspirin 81 MG EC tablet Take 81 mg by mouth daily. Yes Historical Provider, cholecalciferol (Vitamin D-3) 25 MCG (1000 UT) capsule Take 1,000 Units by mouth daily. Yes Historical Provider, escitalopram (Lexapro) 10 MG tablet Take 10 mg by mouth daily. Yes Historical Provider, levothyroxine (Synthroid, Levoxyl) 112 MCG tablet Take 112 mcg by mouth every morning (before breakfast). Yes Historical Provider, meclizine (Antivert) 25 MG tablet Take 12.5 mg by mouth in the morning. Yes Historical Provider, Current Hospital Medications: Current Medications[1] Continuous Infusions: Continuous Meds[2] Allergies: Patient has no known allergies. Social History: TOBACCO: reports that she has been smoking cigarettes. She started smoking about 17 years ago. She has a 17.3 pack-year smoking history. She has never used smokeless tobacco. ETOH: reports that she does not currently use alcohol. RECREATIONAL DRUG USE: Social History Substance and Sexual Activity Drug Use Not Currently Family History: :no pertinent family history identified in this patient @[facility] Physical Examination: Patient Vitals for the past 8 hrs: BP Temp Temp src Pulse Resp SpO2 04/19/25 1527 (!) 182/93 -- -- 69 -- -- 04/19/25 1435 (!) 201/97 (!) 35.9 C (96.6 F) Temporal 68 12 97 % 04/19/25 0923 122/88 36.1 C (96.9 F) Temporal 64 15 95 % I/O last 3 completed shifts: In: 798.3 (9.5 mL/kg) [I.V.:798.3 (9.5 mL/kg)] Out: - (0 mL/kg) Weight: 83.9 kg General Physical Examination: General: HEENT:Normocephalic, atraumaticl CV: S1+S2, RRR, no MRG. Abdomen: Soft NT/ND. BS + Skin: Intact without ulcers, breakdowns or discoloration Extremities: normal with no edema or cyanosis Pulses: Intact peripherally Carotid auscultation :No bruits Neurological Examination: Higher Functions: Mental Status Exam: Level of Alertness:Awake Orientation: Normal to self, time, place Memory: Normal Fund of Knowledge: Normal Language: Normal Dysarthria : not present Cranial Nerves: -II Visual sharma: light perception and movement only in the left eye. VF are full in the right eye -III equal, round, reactive to light -III-IV- Extraocular Movements: intact -Nystagmus not present -Saccades and pursuits normal -V Facial sensation: intact, Corneals + bilaterally -VII Facial strength: intact -VIII Hearing: intact -IX-X- Gag reflex present -X Palate:intact -XI Shoulder shrug: "intact"normal -XII Tongue movement: normal Motor Examination: Tone after evaluation of 4 limbs, the following findings applied: Normal . . -Bulk: normal -Muscle Strength: after evaluation of all limbs, and axial musculature the following findings applied: Drift: absent normal -Reflexes: after evaluation of 4 limbs, the following findings applied ; normal all limbs -Plantar responses: Flexor bilaterally Sensory Examination: Intact to light touch, pain / temperature, proprioception, Coordination: Arms Normal finger to nose Legs Intact heel knee butler testing Tremors not present Gait normal NIH Stroke Score: 1A: Level of Consciousness [x] Alert; keenly responsive 0 [] Arouses to minor stimulation +1 [] Requires repeated stimulation to arouse +2 [] Movements to Pain +2 [] Postures or Unresponsive +3 1B: Ask Month and Age [x] Both Questions Correct 0 [] 1 Question Correct +1 [] 0 Questions Correct +2 [] Dysarthric/Intubated/ Trauma/Language Barrier +1 [] Aphasic +2 1C: 'Blink Eyes' & 'Squeeze Hands' [x] Performs Both Tasks 0 [] Performs 1 Task+1 [] Performs 0 Tasks+2 2: Horizontal Extraocular Movements [x] Normal 0 [] Partial Gaze Palsy: Can Be Overcome +1 [] Partial Gaze Palsy: Corrects with Oculocephalic Reflex +1 [] Forced Gaze Palsy: Cannot Be Overcome +2 3: Visual Sharma [] No Visual Loss 0 [x] Partial Hemianopia +1 [] Complete Hemianopia +2 [] Patient is Bilaterally Blind +3 [] Bilateral Hemianopia +3 4: Test Facial Palsy(Use Grimace if Obtunded) [] Normal symmetry 0 [] Minor paralysis (flat nasolabial fold, smile asymetry) +1 [] Partial paralysis (lower face) +2 [] Unilateral Complete paralysis (upper/lower face) +3 [] Bilateral Complete paralysis (upper/lower face) +3 5A: Left Arm Motor [x] No Drift for 10 Seconds 0 [] Drift, but doesn't hit bed +1 [] Drift, hits bed +2 [] Some Effort Against Sunflower +2 [] No Effort Against Sunflower +3 [] No Movement +4 [] Amputation/Joint Fusion 0 5B: Right Arm Motor [x] No Drift for 10 Seconds 0 [] Drift, but doesn't hit bed +1 [] Drift, hits bed +2 [] Some Effort Against Sunflower +2 [] No Effort Against Sunflower +3 [] No Movement +4 [] Amputation/Joint Fusion 0 6A: Left Leg Motor [] Amputation/Joint Fusion 0 [x] No Drift for 5 Seconds 0 [] Drift, but doesn't hit bed +1 [] Drift, hits bed +2 [] Some Effort Against Sunflower +2 [] No Effort Against Sunflower +3 [] No Movement +4 6B: Right Leg Motor [x] No Drift for 5 Seconds 0 [] Drift, but doesn't hit bed +1 [] Drift, hits bed +2 [] Some Effort Against Sunflower +2 [] No Effort Against Sunflower +3 [] No Movement +4 [] Amputation/Joint Fusion 0 7: Limb Ataxia [] Does Not Understand 0 [] Paralyzed 0 [x] No Ataxia 0 [] Ataxia in 1 Limb +1 [] Ataxia in 2 Limbs +2 [] Amputation/Joint Fusion 0 8: Sensation [x] Normal; No sensory loss 0 [] Mild-Moderate Loss: Less Sharp/More Dull +1 [] Mild-Moderate Loss: Can Sense Being Touched +1 [] Complete Loss: Cannot Sense Being Touched At All +2 [] No Response and Quadriplegic +2 [] Coma/Unresponsive +2 9: Language/Aphasia [x] Normal; No aphasia 0 [] Mild-Moderate Aphasia: Some Obvious Changes, Without Significant Limitation +1 [] Severe Aphasia: Fragmentary Expression, Inference Needed, Cannot Identify materials +2 [] Mute/Global Aphasia: No Usable Speech/Auditory Comprehension +3 [] Coma/Unresponsive +3 10: Dysarthria [x] Normal 0 [] Mild-Moderate Dysarthria: Slurring but can be understood +1 [] Severe Dysarthria: Unintelligble Slurring or Out of Proportion to Dysphasia +2 [] Mute/Anarthric +2 [] Intubated/Unable to Test 0 11: Extinction/Inattention [x] No abnormality 0 [] Visual/tactile/auditory/spatial/perso nal inattention +1 [] Extinction to bilateral simultaneous stimulation +1 [] Profound rasheeda-inattention (ex: does not recognize own hand) +2 [] Extinction to >1 modality +2 NIH score is 2. Results Labs: Last 24hrs Recent Results (from the past 24 hours) Comprehensive metabolic panel Collection Time: 04/19/25 12:33 AM Result Value Ref Range SODIUM 138 136 - 145 mmol/L POTASSIUM 3.2 (L) 3.5 - 5.1 mmol/L CHLORIDE 107 98 - 107 mmol/L CARBON DIOXIDE 20 (L) 23 - 31 mmol/L ANION GAP 11 3 - 13 mmol/L UREA NITROGEN 20 9 - 23 mg/dL CREATININE 1.12 (H) 0.57 - 1.11 mg/dL GLUCOSE 94 82 - 115 mg/dL CALCIUM 8.7 (L) 8.8 - 10.0 mg/dL AST (SGOT) 16 <34 U/L ALT 6 <30 U/L ALKALINE PHOSPHATASE 157 (H) 40 - 150 U/L ALBUMIN 3.1 (L) 3.4 - 4.8 g/dL BILIRUBIN, TOTAL 0.6 <1.2 mg/dL TOTAL PROTEIN 5.9 (L) 6.4 - 8.3 g/dL eGFR 49.2 (L) >60.0 mL/min/1.73m*2 Hemoglobin A1c Collection Time: 04/19/25 12:33 AM Result Value Ref Range HEMOGLOBIN A1C 5.6 <5.7 %HbA1C ESTIMATED AVERAGE GLUCOSE 114 mg/dL Lipid panel - fasting Collection Time: 04/19/25 12:33 AM Result Value Ref Range TRIGLYCERIDE 95 <150 mg/dL CHOLESTEROL 172 <200 mg/dL HDL CHOLESTEROL 48 (L) >=60 mg/dL CHOL/HDL 4 VERY LOW DENSITY LIPOPROTEIN, CALCULATED 19 <=30 mg/dL NON-HDL CHOLESTEROL, CALCULATED 124 <130 LOW DENSITY LIPOPROTEIN 105 (H) 0 - <100 mg/dL CBC Collection Time: 04/19/25 12:33 AM Result Value Ref Range Auto WBC 11.4 (H) 3.6 - 10.7 10*3/uL RBC 4.52 3.80 - 5.20 10*6/uL Hemoglobin 14.1 11.7 - 16.0 g/dL Hematocrit 41.4 35.0 - 47.0 % MCV 91.6 77.0 - 99.0 fL MCH 31.2 26.0 - 34.0 pg MCHC 34.1 30.5 - 36.0 % RDW 13.0 11.5 - 15.0 % Platelets 225 140 - 440 10*3/uL MPV 9.4 9.0 - 12.7 fL Magnesium Collection Time: 04/19/25 12:33 AM Result Value Ref Range MAGNESIUM 2.1 1.6 - 2.6 mg/dL Transthoracic echocardiogram (TTE) complete with contrast, bubble, strain, and 3D PRN Collection Time: 04/19/25 10:55 AM Result Value Ref Range IVSd 1.0 (A) 0.6 - 0.9 cm LVIDd 4.7 3.9 - 5.3 cm LVIDs 3.4 cm LVOT Diameter 2.0 cm LVPWd 0.9 0.6 - 0.9 cm EF BP 55 55 - 100 % LV Ejection Fraction A2C 54 % LV Ejection Fraction A4C 56 % LV EDV A2C 79 mL LV EDV A4C 54 mL LV EDV BP 66 56 - 104 mL LV ESV A2C 36 mL LV ESV A4C 25 mL LV ESV BP 30 19 - 49 mL LVOT Cardiac Output 3.8 liter/minute LVOT Peak Gradient 3 mmHg LVOT Mean Gradient 2 mmHg LVOT SV 69.4 ml LVOT Peak Velocity 0.9 m/s LVOT VTI 22.1 cm RV Longitudinal Dimension 6.6 cm RV Mid Dimension 2.5 cm RV Basal Dimension 3.2 cm RV Free Wall Peak S' 9 cm/s RVOT Peak Gradient 3 mmHg RVOT Mean Gradient 2 mmHg RVOT Peak Velocity 0.8 m/s RVOT VTI 22.2 cm LA Diameter 3.0 cm LA Volume A/L 37 mL LA Volume 2C 40 22 - 52 mL LA Volume 4C 27 22 - 52 mL LA Volume BP 34 22 - 52 mL RA Area 4C 29.6 mL AV Area by Peak Velocity 2.0 cm2 AV Area by VTI 2.3 cm2 AV Peak Gradient 7 mmHg AV Mean Gradient 3 mmHg AV Peak Velocity 1.3 m/s AV Mean Velocity 0.9 m/s AV VTI 28.7 cm MV A Velocity 0.62 m/s MV E Wave Deceleration Time 299.6 ms MV E Velocity 0.45 m/s LV E' Lateral Velocity 9 cm/s LV E' Septal Velocity 6 cm/s MV Area by VTI 3.6 cm2 MV Peak Gradient 3 mmHg MV Mean Gradient 1 mmHg MV Max Velocity 0.8 m/s MV Mean Velocity 0.5 m/s MV VTI 19.4 cm PV Peak Gradient 3 mmHg PV Mean Gradient 2 mmHg PV Max Velocity 0.9 m/s PV Mean Velocity 0.6 m/s TAPSE 1.7 >=1.7 cm TR Max Velocity 2.60 m/s Ascending Aorta 3.5 cm IVC Diameter 1.4 cm Fractional Shortening 2D 28 28 - 44 % LV ESV Index BP 16 mL/m2 LV EDV Index BP 36 mL/m2 LV ESV Index A4C 14 mL/m2 LV EDV Index A4C 29 mL/m2 LV ESV Index A2C 19 mL/m2 LV EDV Index A2C 43 mL/m2 LVIDd Index 2.54 cm/m2 LVIDs Index 1.84 cm/m2 LV RWT Ratio 0.38 LV Mass 2D 153.4 67 - 162 g LV Mass 2D Index 82.9 43 - 95 g/m2 MV E/A 0.73 E/E' Ratio (Averaged) 6.25 E/E' Lateral 5.00 E/E' Septal 7.50 LA Volume Index BP 18 16 - 34 ml/m2 LA Volume Index A/L 20 16 - 34 mL/m2 LVOT Stroke Volume Index 37.5 mL/m2 LVOT Area 3.1 cm2 LA Volume Index 2C 22 16 - 34 mL/m2 LA Volume Index 4C 15 (A) 16 - 34 mL/m2 LA Size Index 1.62 cm/m2 Ascending Aorta Index 1.89 cm/m2 AV Velocity Ratio 0.69 LVOT:AV VTI Index 0.77 APARNA/BSA VTI 1.2 cm2/m2 APARNA/BSA Peak Velocity 1.1 cm2/m2 MV:LVOT VTI Index 0.88 Est. RA Pressure 3 mmHg Aortic Sinus Valsalva 3.2 cm Aortic Sinus Valsalva Index 1.73 cm/m2 RVSP 30 mmHg Sinotubular Junction 2.6 cm Radiology (Personally reviewed): CT head wo IV contrast Result Date: 04/18/2025 [facility] 1940 [id number] Exam Date/Time: 04/18/2025 14:15 Procedure: CT HEAD WO IV CONTRAST Ordering Provider: BORREGO SAMANTHA Reason For Exam: Neuro deficit, acute, stroke suspected Examination: CT head Technique: Axial CT images of the head were obtained without IV contrast at 5 mm intervals. Dose reduction was employed with automatic exposure control. Coronal and sagittal reconstructions were also provided Indication: Concern for left retinal artery occlusion Findings: Moderate diffuse parenchymal volume loss is noted, evidence by prominence of the ventricles and sulci. Fairly extensive decreased attenuation is noted within the periventricular white matter, likely secondary to chronic small vessel ischemia. The salazar-white differentiation is grossly intact. There are no extra-axial fluid collections or acute intracranial hemorrhage appreciated. There is no midline shift identified. Question small remote infarct, posterior left cerebellum. Mild mucoperiosteal thickening of the ethmoid air cells. Otherwise, the paranasal sinuses are grossly clear. The mastoid air cells are grossly unremarkable.. The bones are grossly unremarkable. Atherosclerotic calcification of the carotid siphons and distal vertebral arteries is noted. Impression: Likely chronic small vessel ischemic changes in the periventricular white matter. No acute intracranial abnormality. Examination: CT angiogram of head Indication: Concern for left retinal artery occlusion Technique: Thin section axial CTA images of the intracranial circulation were obtained at 0.5 mm intervals following the administration of intravenous contrast (75 mL Isovue 370). Dose reduction was employed with automatic exposure control. Coronal and sagittal reconstructed images were also provided for review. Images were reformatted on a 3-D workstation concurrently by myself with volume rendering. Findings: Calcification of the bilateral carotid siphons. There is significant calcification, atherosclerosis and narrowing of the cranial segment of the left vertebral artery with high-grade stenosis measuring at least 75-80 percent. The anterior and posterior circulation are grossly intact. No abnormal branch cutoff is demonstrated. There is no sizable intracranial aneurysm. There is filling of the ophthalmic artery and some of its branch vessels vessels within the bilateral orbits, however assessment of the retinal artery is limited on this study. There is subtle vascular enhancement about the bilateral optic nerves, however. The bilateral globes are unremarkable on this study. The dural venous sinuses are grossly patent. Impression: Ophthalmic arteries and some of its branch vessels appear patent. 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 Grossly patent intracranial vasculature without large vessel occlusion. Dense calcification of the carotid siphons. Examination: CT angiogram neck Indication: Concern for left retinal artery occlusion Technique: Axial CT angiographic images of the neck were obtained with IV contrast (75 mL Isovue 370) at 0.5 mm intervals from level the nasopharynx to the thoracic inlet. Dose reduction was employed with automatic exposure control. Coronal and sagittal reconstructed images were also provided for review. Images were reformatted on a separate 3-D workstation by myself and reviewed with volume rendering. NASCET criteria was used to assess stenoses noted on this exam (if present). Findings: The bilateral common carotid arteries are grossly patent. There is calcification of the bilateral carotid bifurcations. Approximate 40 percent narrowing of the right internal carotid artery origin, secondary to calcified plaque. Approximate 60 percent short segment stenosis of the proximal left internal carotid artery as noted on coronal image 111 and axial image 433, series 3. The bilateral external carotid arteries are patent. No acute vascular dissection is noted. The dominant right cervical vertebral artery. The left vertebral artery is slightly small in caliber throughout. There does appear to be significant narrowing of the proximal left vertebral artery at its origin and slightly distal to this measuring at least 50 percent or slightly greater. The bilateral cervical vertebral arteries are otherwise grossly patent. There is significant calcification and soft plaque of the visualized portion of the aortic arch. Mild to moderate degenerative changes of the cervical spine with mild reversal of cervical lordosis. At least moderate degenerative changes at the C1-C2 articulation. Impression: Calcification of the bilateral carotid bifurcations with associated stenosis. Slightly distal to the origin of the left internal carotid artery there is approximate 60 percent stenosis. Approximate 40 percent short segment narrowing of the right internal carotid artery origin. Narrowing of the proximal left vertebral artery. CTA of the head is detailed above in a separate report. Report Dictated on Electronically Signed By: Jose Alberto Romero MD Electronically Signed Date/Time: 04/18/2025 2:[address] head wo IV contrast Result Date: 04/17/2025 [facility] 1940 [id number] Exam Date/Time: 04/17/2025 11:29 Procedure: CT HEAD WO IV CONTRAST Ordering Provider: DAY MARY Reason For Exam: Vision loss, monocular CLINICAL INFORMATION: Acute left-sided vision loss. 3 mm axial cuts through the head are obtained without IV contrast. Dose reduction was employed with automated exposure control. There are no comparison studies. FINDINGS: The ventricles are within normal limits in respect to their size and configuration. There is no evidence of mass or mass-effect. There are no abnormal intra- or extra-axial fluid collections. No hemorrhage is identified. There is moderate cortical atrophy. Patchy/confluent low-attenuation is noted within the periventricular, deep, and subcortical white matter. 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 There is no CT evidence of an acute infarct. Bone windows demonstrate no evidence of fracture and the visualized paranasal sinuses and mastoid air cells are clear. 1. Atrophy and evidence of small-vessel ischemic disease. This is not unusual for patient age. 2. No intracranial hemorrhage. 3. No CT evidence of an acute intracranial process. Report Dictated on Electronically Signed By: Ganesh Joe MD Electronically Signed Date/Time: 04/17/2025 11:36 AM EDT MR brain wo contrast Result Date: 04/19/2025 [facility]LI [facility] 1940 [id number] Exam Date/Time: 04/19/2025 11:40 Procedure: MR BRAIN WO CONTRAST Ordering Provider: FARLEY MARK Reason For Exam: Neuro deficit, acute, stroke suspected MRI BRAIN WITHOUT CONTRAST INDICATIONS: Neuro deficit, acute, stroke suspected COMPARISON: None TECHNIQUE: Multiplanar, multisequence MRI of the brain was performed without contrast. FINDINGS: Acute Change: No evidence of acute infarction. No fluid collection or intracranial hemorrhage. Mass Lesion: None. Parenchyma: Confluent foci of T2/FLAIR hyperintensity in the supratentorial white matter which most likely represent extensive chronic microvascular ischemic changes. 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 Ventricles and sulci: Moderate generalized brain parenchymal volume loss with proportionate ventricular enlargement. Skull base: Normal appearance of the pituitary gland. Normal position of the cerebellar tonsils. Vessels: The major intracranial flow voids are preserved. Extracranial structures: Normal orbits. No extracranial soft tissue abnormalities. Sinuses/mastoids: Clear Bones: No pathologic marrow infiltration. 1. No acute intracranial abnormalities. 2. Generalized brain parenchymal volume loss and extensive chronic microvascular ischemic changes in the supratentorial white matter. Remote infarcts are noted involving the left cerebral hemisphere Report Dictated on Electronically Signed By: Keyanna Marks MD Electronically Signed Date/Time: 04/19/2025 12:22 PM EDT Transthoracic echocardiogram (TTE) complete with contrast, bubble, strain, and 3D PRN Result Date: 04/19/2025 Left Ventricle: Left ventricle size is normal. Mildly increased wall thickness. Normal left ventricular systolic function. EF by 2D Simpsons Biplane is 55%. Normal wall motion. Right Ventricle: Right ventricle size is normal. Normal systolic function. Pericardium: Evidence of prominent epicardial fat. No pericardial effusion. No significant valvular abnormalities. Technically difficult study. I personally spent [] 25 [x]50 []70 []80 minutes in time for this patient. During that time I performed a face to face diagnostic evaluation of this patient reviewing labs, imaging studies and the electronic medical record; as well as counseling/coordinating care and provided discussion regarding diagnostic impressions and the plan of care with the consulting team Bill Ruiz MD Vascular Neurology [1] Current Facility-Administered Medications: acetaminophen (Tylenol) tablet 650 mg, 650 mg, Oral, q6h PRN OR acetaminophen (Tylenol) suppository 650 mg, 650 mg, Rectal, q6h PRN, Petrona M Dials amLODIPine (Norvasc) tablet 5 mg, 5 mg, Oral, Daily, Petrona M Dials, 5 mg at 04/18/252037 aspirin EC tablet 81 mg, 81 mg, Oral, Daily, 81 mg at 04/19/25 1007 OR aspirin suppository 300 mg, 300 mg, Rectal, Daily, Petrona M Dials atorvastatin (Lipitor) tablet 40 mg, 40 mg, Oral, Nightly, Petrona M Dials, 40 mg at 04/18/252032 bisacodyl (Dulcolax) suppository 10 mg, 10 mg, Rectal, Daily PRN, Petrona M Dials cholecalciferol (Vitamin D-3) tablet 1,000 Units, 1,000 Units, Oral, Daily, Petrona M Dials, 1,000 Units at 04/19/251006 clopidogrel (Plavix) tablet 75 mg, 75 mg, Oral, Daily, Bill Ruiz MD, 75 mg at 04/19/25 1350 escitalopram (Lexapro) tablet 10 mg, 10 mg, Oral, Daily, Petrona M Dials, 10 mg at 04/19/25 1007 labetalol (Normodyne,Trandate) injection 10 mg, 10 mg, IntraVENous, q10 min PRN, Petrona M Dials levothyroxine (Synthroid, Levoxyl) tablet 112 mcg, 112 mcg, Oral, qAM AC, Petrona M Dials, 112 mcg at 04/19/25 1013 meclizine (Antivert) tablet 12.5 mg, 12.5 mg, Oral, Daily, Petrona M Dials, 12.5 mg at 04/19/25 1012 nicotine (Nicoderm, Step 1) 21 MG/24HR patch 1 patch, 1 patch, TransDERmal, Daily, Petrona M Dials, 1 patch at 04/19/25 1007 ondansetron ODT (Zofran-ODT) disintegrating tablet 4 mg, 4 mg, Oral, q8h PRN OR ondansetron (Zofran) injection 4 mg, 4 mg, IntraVENous, q6h PRN, Petrona M Dials sodium chloride 0.9 % infusion, 5-250 mL/hr, IntraVENous, PRN, Petrona M Dials sodium chloride 0.9% (NS) flush 5-40 mL, 5-40 mL, IntraVENous, q12h, Petrona M Dials, 10 mL at 04/18/25 1322 sodium chloride 0.9% (NS) flush 5-40 mL, 5-40 mL, IntraVENous, PRN, Petrona M Dials [2] documented in this encounter [facility] 04-19-2025 Hospital Discharge instructions Tami Merritt RN - 04/19/2025 1:22 AM EDT Refer to the Understanding Stroke Booklet given to you, written material provided to patient/family, addressing all signs & symptoms of a stroke, which are: sudden numbness or weakness of the face, arm or leg, especially on one side of the body sudden confusion sudden difficulty speaking or understanding sudden trouble seeing in one or both eyes sudden trouble walking,dizziness, loss of balance or coordination sudden severe headache with no known cause syncope or temporary loss of consciousness seizure Explained the need to call EMS ([phone]) immediately if signs & symptoms occur. Discussed medications that the patient is taking, will review medications again prior to discharge, risk factors, and the need for follow-up with a physician/PREBOARDER/PA after discharge. Tami Merritt RN on 04/19/25 at 1:22 AM Discussed the patient s personal risk factors for Stroke /TIA with patient/family, and ways to reduce the risk for a recurrent stroke. Patient's personal risk factors which were identified are: [x] High blood pressure [x] High cholesterol [] Atrial fibrillation [] Diabetes [x] Smoking/e-cigarettes/vaping [] Smokeless tobacco [x] Overweight [x] Lack of Exercise [] Sleep apnea [] Prior heart disease or heart attack [] Excessive alcohol use [] Marijuana/cannabis use [] Illicit drug use [] Personal history of previous TIA or stroke [] Family history of stroke or heart disease [] Carotid stenosis [] Heart failure [] Patent Foramen Ovale [] Migraine [] Hormone replacement therapy [] Current (up to six weeks post ) [] Depression [] Sickle Cell [] Renal insufficiency - chronic [] None Refer to Understanding Stroke Booklet. Advised patient that risk for stroke/TIA can be reduced by modifying/controlling risk factors. Patient advised to take medications as prescribed, which will be detailed in the discharge instructions, and to not stop taking them without consulting a physician. In addition, pt. advised to maintain a healthy diet, exercise regularly and to not smoke. Tami Merritt RN on 04/19/25 at 1:22 AM Bita Holland MD - 04/20/2025 2:14 PM EDT No restriction Bita Holland MD - 04/20/2025 2:14 PM EDT Heart healthy diet [place] RN - 04/20/2025 2:23 PM EDT documented in this encounter [facility] 04-18-2025 History and physical note Attending History and Physical Admit Date: 04/18/2025 PCP: Charlene Walker MD CHIEF COMPLAINT: vision loss left eye Reason for Admit left retinal artery occlusion History Obtained From: patient HISTORY OF PRESENT ILLNESS: Diana is a 84 y.o. female with past medical history hypothyroidism, hypertension who is a current smoker for > 60 years presented to the Ed from her ophthalmology appointment. Symptoms originally started on Monday in the middle of the night. Patient went to bed normal. She woke up the first time at 2 AM went to the bathroom and was okay. Around 4 AM she woke up with blurry vision of her left eye. She called her granddaughter who recommended she report to the emergency department. She presented to the emergency department on April 17 for painless monocular vision loss. She wears bifocal glasses her blood pressure was elevated 191/103 and manual recheck was 180/90. CT head without IV contrast, CRP and sed rate was ordered. Stat lab exam showed normal vasculature in the anterior and posterior chamber. Tonometry was unable to be performed secondary to instrument malfunction. CT head no intracranial hemorrhage and no evidence of acute intracranial process. Case was discussed with ophthalmology who did not see need for acute inpatient workup and the plan was for patient to follow-up as outpatient. 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 Patient again presented to the ED for further workup and management. On presentation to the emergency department temperature 36.1, heart rate 67, respirations 18, blood pressure 182/ 92, 97% on room air. CT head and neck significant for moderate diffuse parenchymal volume loss, likely chronic small vessel ischemic changes and periventricular white matter. No acute intracranial abnormality. CTA of head/neck demonstrated calcification of the bilateral carotid bifurcations with associated Stenosis. Slight distal to the origin of the left internal carotid artery is approximately 60% stenosis and approximate 40% short segment narrowing of the right internal carotid artery. There is narrowing of the proximal left vertebral artery. Creatinine is 1.36, Baseline creatinine 1.08 in December 2023. Alkaline phosphatase elevated 180. CBC normal white blood cell count 9.7, hemoglobin 15.4, hematocrit 46.6 and platelet count 253. Sedimentation rate on 04/17/2016 normal. CRP elevated at 8.4. Will admit for further evaluation and management. Past Medical History: Medical History[1] Past Surgical History: Surgical History[2] Social History: Social History Socioeconomic History Marital status: Spouse name: Not on file Number of children: Not on file Years of education: Not on file Highest education level: Not on file Occupational History Not on file Tobacco Use Smoking status: Every Day Current packs/day: 1.00 Average packs/day: 1 pack/day for 17.3 years (17.3 ttl pk-yrs) Types: Cigarettes Start date: 12/18/2007 Smokeless tobacco: Never Substance and Sexual Activity Alcohol use: Not Currently Drug use: Not Currently Sexual activity: Not Currently Other Topics Concern Not on file Social History Narrative Not on file Social Drivers of Health Financial Resource Strain: Low Risk (12/29/2023) Overall Financial Resource Strain (CARDIA) Difficulty of Paying Living Expenses: Not very hard Food Insecurity: No Food Insecurity (12/29/2023) Hunger Vital Sign Worried About Running Out of Food in the Last Year: Never true Ran Out of Food in the Last Year: Never true Transportation Needs: No Transportation Needs (12/31/2023) PRAPARE - Transportation Lack of Transportation (Medical): No Lack of Transportation (Non-Medical): No Physical Activity: Inactive (12/29/2023) Exercise Vital Sign Days of Exercise per Week: 0 days Minutes of Exercise per Session: 0 min Stress: No Stress Concern Present (12/29/2023) [employer] [place] [employer] - Occupational Stress Questionnaire Feeling of Stress : Only a little Social Connections: Moderately Integrated (12/29/2023) Social Connection and Isolation Panel [NHANES] Frequency of Communication with Friends and Family: Three times a week Frequency of Social Gatherings with Friends and Family: Three times a week Attends Baptism Services: 1 to 4 times per year Active Member of Clubs or Organizations: Yes Attends Club or Organization Meetings: 1 to 4 times per year Marital Status: Intimate Partner Violence: Not At Risk (12/31/2023) Humiliation, Afraid, Rape, and Kick questionnaire Fear of Current or Ex-Partner: No Emotionally Abused: No Physically Abused: No Sexually Abused: No Housing Stability: Low Risk (12/31/2023) Housing Stability Vital Sign Unable to Pay for Housing in the Last Year: No Number of Places Lived in the Last Year: 1 Unstable Housing in the Last Year: No Family History: Family History[3] Medications Prior to Admission: Current Medications[4] Medications Reconciliation: Medication were reviewed and verified as accurate with patient. Allergies: Allergies[5] REVIEW OF SYSTEMS: 10 point ROS obtained, as per HPI, otherwise NEG Vitals: BP (!) 182/92 Pulse 67 Temp 36.1 C (97 F) (Temporal) Resp 18 Ht 5' 2" (1.575 m) Wt 185 lb (83.9 kg) SpO2 97% BMI 33.84 kg/m BMI Classification: Obese (BMI 30.0-39.9) Pulse Ox: SpO2 Av % Min: 97 % Max: 97 % Supplemental O2: PHYSICAL EXAM: Physical Exam HENT: Head: Normocephalic and atraumatic. Comments: No temporal pain on palpation Mouth/Throat: Mouth: Mucous membranes are moist. Eyes: Pupils: Pupils are equal, round, and reactive to light. Cardiovascular: Rate and Rhythm: Normal rate and regular rhythm. Heart sounds: Normal heart sounds. Comments: Radial pulses 2+, feet not observed Pulmonary: Effort: Pulmonary effort is normal. Comments: diminished Abdominal: General: Bowel sounds are normal. Palpations: Abdomen is soft. Musculoskeletal: Cervical back: Neck supple. Skin: General: Skin is warm and dry. Capillary Refill: Capillary refill takes less than 2 seconds. Neurological: Mental Status: She is alert and oriented to person, place, and time. Comments: Left eye + vision loss peripheral and central Psychiatric: Mood and Affect: Mood normal. DATA: CBC: Recent Labs 04/18/25 1322 WBC 9.7 RBC 5.05 HGB 15.4 HCT 46.6 MCV 92.3 RDW 13.1 PLT 253 BMP: Recent Labs 04/18/25 1322 NA 139 K 3.6 CL 102 CO2 23 BUN 20 CREATININE 1.36* GLUCOSE 108 CALCIUM 9.6 ANIONGAP 14* LIVER PROFILE: Recent Labs 04/18/25 1322 AST 22 ALT 10 BILITOT 0.7 ALKPHOS 180* PROT 6.9 PT/INR: Recent Labs 04/18/25 1322 PROTIME 10.6 INR 1.0 CARDIAC ENZYMES: No results for input(s): "TROPONINI" in the last 72 hours. Procalcitonin: No results found for: PROCAL Urine Culture: No results found for this or any previous visit. COVID-19 PCR: No results for input(s): "COVID19" in the last 72 hours. I reviewed: [x] laboratory results [x] radiographic results At the time of today's encounter. Pt was advised of the results. Data: (CAT1) Reviewed 3 or more notes from different specialty or health system (each=1). (CAT1) Reviewed 3 or more labs/studies previously ordered by me not previously counted (each=1, panels count as 1). (CAT1) Ordered 3 or more new labs and/or studies (each=1, panels count as 1). (LOW: 2x CAT1 or independent historian MOD: 3x CAT1 or 1x CAT3 EXTENSIVE: 3x CAT1 and 1x CAT3) Assessment Discussed management with the ED provider and agree with hospitalization. Acute, acute on chronic, unstable/uncontrolled chronic problems/diagnoses: Retinal artery occlusion/possible sub acute stroke Vertebral artery narrowing Suspect vascular dementia- not diagnosed- significant volume loss on CT Carotid artery stenosis Essential htn Nicotine dependence Stable chronic problems affecting care, new non-acute diagnoses: Hypothyroidism- synthroid 2. Chronic bronchitis- never diagnosed or worked up for copd Plan As a result of the above findings & factors, the following mgmt was pursued: - admit as inpatient - consult neuro - MRI brain - echocardiogram - asa 81 mg daily - atorvastatin 40 mg - nicotine patch - no acute kidney injury, patient cret is 2/10 higher than baseline - labatetalol prn - hgb A1c - lipid panel - follow up ophthalmology at discharge - blood pressure control- resumed Norvasc home dose, - am labs, replace lytes prn - PT/OT/CM/SW - delirium precautions: increase activity - DVT prophylaxis: encourage ambulation Advance Directive: Prior Anticipated Discharge - Date - 04/20/2025 - Location - Skilled Facility - Pending the following - stroke work up Toxic drug monitoring/narrow therapeutic index drug monitoring : # Drug name : n/a # Route administered : n/a # Method of monitoring : n/a Extended Emergency Contact Information Primary Emergency Contact: Hamilton Piper (POA) Mobile Relation: Louis [employer] Diana Kohli : 1940 Primary Care Physician: Charlene Walker MD The patient and/or family/surrogate voluntarily agreed to participate in ACP services. Patient s cognitive capacity: alert oriented x 3 Code Status: [X_] [FULL CODE - Continue all advanced life support: CPR,intubation,invasive procedures] [_] [DNR-CCA - DO NOT do CPR, intubation] [_] [DNR-LOAN CLERK - Comfort care only] [_] DNR form [was/was not] signed Summary of discussion: The patient health care POA/ surrogate is the following: self. Possible cva that instigated the ACP on this DOS, relevant PMH, functional status, goals of care, discussed with patient was discussed with patient who is a Full code I answered all the patient/family questions that I could within the range and scope of the current medical situation. We discussed the medical conditions, risks, benefits, outcomes, and goals of care at this time for the patient's medical issues at hand in the face of the patient's chronic issues and current presentation. Total time spent: 5 minutes were spent discussing the patient's resuscitation status, advance care planning, and end of life care, with patient and/or family/surrogate. Petrona Taylor Division of Hospitalist Medicine [facility] [1] Past Medical History: Diagnosis Date Disease of thyroid gland Hypertension 01/01/2024 [2] Past Surgical History: Procedure Laterality Date CHOLECYSTECTOMY NECK EXPLORATION 01/02/2024 INCISION AND DRAINAGE DEEP ABCESS OR HEMATOMA SOFT TISSUE NECK OR THORAX [3] No family history on file. [4] Current Facility-Administered Medications: sodium chloride 0.9 % infusion, 5-250 mL/hr, IntraVENous, PRN, Darcy L. Elmo, SHOP ROUTER - ENTRY LEVEL MECHANICAL ENGINEER sodium chloride 0.9 % infusion, 50 mL/hr, IntraVENous, Continuous, Darcy L. Elmo, SHOP ROUTER - ENTRY LEVEL MECHANICAL ENGINEER, Last Rate: 50 mL/hr at 04/18/25 1323, 50 mL/hr at 04/18/25 1323 sodium chloride 0.9% (NS) flush 5-40 mL, 5-40 mL, IntraVENous, q12h, Darcy L. Elmo, SHOP ROUTER - ENTRY LEVEL MECHANICAL ENGINEER, 10 mL at 04/18/25 1322 sodium chloride 0.9% (NS) flush 5-40 mL, 5-40 mL, IntraVENous, PRN, Darcy L. Elmo, SHOP ROUTER - ENTRY LEVEL MECHANICAL ENGINEER Current Outpatient Medications: amLODIPine (Norvasc) 5 MG tablet, Take 5 mg by mouth before bedtime., Disp: , Rfl: aspirin 81 MG EC tablet, Take 81 mg by mouth daily., Disp: , Rfl: cholecalciferol (Vitamin D-3) 25 MCG (1000 UT) capsule, Take 1,000 Units by mouth daily., Disp: , Rfl: escitalopram (Lexapro) 10 MG tablet, Take 10 mg by mouth daily., Disp: , Rfl: levothyroxine (Synthroid, Levoxyl) 112 MCG tablet, Take 112 mcg by mouth every morning (before breakfast)., Disp: , Rfl: meclizine (Antivert) 25 MG tablet, Take 12.5 mg by mouth in the morning., Disp: , Rfl: [5] No Known Allergies Cosigned by Ly Worrell MD at 04/18/2025 6:07 PM EDT [facility] 04-18-2025 Note [facility] 04-18-2025 History and physical note Attending History and Physical Admit Date: 04/18/2025 PCP: Charlene Walker MD CHIEF COMPLAINT: vision loss left eye Reason for Admit left retinal artery occlusion History Obtained From: patient HISTORY OF PRESENT ILLNESS: Diana is a 84 y.o. female with past medical history hypothyroidism, hypertension who is a current smoker for > 60 years presented to the Ed from her ophthalmology appointment. Symptoms originally started on Monday in the middle of the night. Patient went to bed normal. She woke up the first time at 2 AM went to the bathroom and was okay. Around 4 AM she woke up with blurry vision of her left eye. She called her granddaughter who recommended she report to the emergency department. She presented to the emergency department on April 17 for painless monocular vision loss. She wears bifocal glasses her blood pressure was elevated 191/103 and manual recheck was 180/90. CT head without IV contrast, CRP and sed rate was ordered. Stat lab exam showed normal vasculature in the anterior and posterior chamber. Tonometry was unable to be performed secondary to instrument malfunction. CT head no intracranial hemorrhage and no evidence of acute intracranial process. Case was discussed with ophthalmology who did not see need for acute inpatient workup and the plan was for patient to follow-up as outpatient. 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 Patient again presented to the ED for further workup and management. On presentation to the emergency department temperature 36.1, heart rate 67, respirations 18, blood pressure 182/ 92, 97% on room air. CT head and neck significant for moderate diffuse parenchymal volume loss, likely chronic small vessel ischemic changes and periventricular white matter. No acute intracranial abnormality. CTA of head/neck demonstrated calcification of the bilateral carotid bifurcations with associated Stenosis. Slight distal to the origin of the left internal carotid artery is approximately 60% stenosis and approximate 40% short segment narrowing of the right internal carotid artery. There is narrowing of the proximal left vertebral artery. Creatinine is 1.36, Baseline creatinine 1.08 in December 2023. Alkaline phosphatase elevated 180. CBC normal white blood cell count 9.7, hemoglobin 15.4, hematocrit 46.6 and platelet count 253. Sedimentation rate on 04/17/2016 normal. CRP elevated at 8.4. Will admit for further evaluation and management. Past Medical History: Medical History[1] Past Surgical History: Surgical History[2] Social History: Social History Socioeconomic History Marital status: Spouse name: Not on file Number of children: Not on file Years of education: Not on file Highest education level: Not on file Occupational History Not on file Tobacco Use Smoking status: Every Day Current packs/day: 1.00 Average packs/day: 1 pack/day for 17.3 years (17.3 ttl pk-yrs) Types: Cigarettes Start date: 12/18/2007 Smokeless tobacco: Never Substance and Sexual Activity Alcohol use: Not Currently Drug use: Not Currently Sexual activity: Not Currently Other Topics Concern Not on file Social History Narrative Not on file Social Drivers of Health Financial Resource Strain: Low Risk (12/29/2023) Overall Financial Resource Strain (CARDIA) Difficulty of Paying Living Expenses: Not very hard Food Insecurity: No Food Insecurity (12/29/2023) Hunger Vital Sign Worried About Running Out of Food in the Last Year: Never true Ran Out of Food in the Last Year: Never true Transportation Needs: No Transportation Needs (12/31/2023) PRAPARE - Transportation Lack of Transportation (Medical): No Lack of Transportation (Non-Medical): No Physical Activity: Inactive (12/29/2023) Exercise Vital Sign Days of Exercise per Week: 0 days Minutes of Exercise per Session: 0 min Stress: No Stress Concern Present (12/29/2023) [employer] [place] [employer] - Occupational Stress Questionnaire Feeling of Stress : Only a little Social Connections: Moderately Integrated (12/29/2023) Social Connection and Isolation Panel [NHANES] Frequency of Communication with Friends and Family: Three times a week Frequency of Social Gatherings with Friends and Family: Three times a week Attends Baptism Services: 1 to 4 times per year Active Member of Clubs or Organizations: Yes Attends Club or Organization Meetings: 1 to 4 times per year Marital Status: Intimate Partner Violence: Not At Risk (12/31/2023) Humiliation, Afraid, Rape, and Kick questionnaire Fear of Current or Ex-Partner: No Emotionally Abused: No Physically Abused: No Sexually Abused: No Housing Stability: Low Risk (12/31/2023) Housing Stability Vital Sign Unable to Pay for Housing in the Last Year: No Number of Places Lived in the Last Year: 1 Unstable Housing in the Last Year: No Family History: Family History[3] Medications Prior to Admission: Current Medications[4] Medications Reconciliation: Medication were reviewed and verified as accurate with patient. Allergies: Allergies[5] REVIEW OF SYSTEMS: 10 point ROS obtained, as per HPI, otherwise NEG Vitals: BP (!) 182/92 Pulse 67 Temp 36.1 C (97 F) (Temporal) Resp 18 Ht 5' 2" (1.575 m) Wt 185 lb (83.9 kg) SpO2 97% BMI 33.84 kg/m BMI Classification: Obese (BMI 30.0-39.9) Pulse Ox: SpO2 Av % Min: 97 % Max: 97 % Supplemental O2: PHYSICAL EXAM: Physical Exam HENT: Head: Normocephalic and atraumatic. Comments: No temporal pain on palpation Mouth/Throat: Mouth: Mucous membranes are moist. Eyes: Pupils: Pupils are equal, round, and reactive to light. Cardiovascular: Rate and Rhythm: Normal rate and regular rhythm. Heart sounds: Normal heart sounds. Comments: Radial pulses 2+, feet not observed Pulmonary: Effort: Pulmonary effort is normal. Comments: diminished Abdominal: General: Bowel sounds are normal. Palpations: Abdomen is soft. Musculoskeletal: Cervical back: Neck supple. Skin: General: Skin is warm and dry. Capillary Refill: Capillary refill takes less than 2 seconds. Neurological: Mental Status: She is alert and oriented to person, place, and time. Comments: Left eye + vision loss peripheral and central Psychiatric: Mood and Affect: Mood normal. DATA: CBC: Recent Labs 04/18/25 1322 WBC 9.7 RBC 5.05 HGB 15.4 HCT 46.6 MCV 92.3 RDW 13.1 PLT 253 BMP: Recent Labs 04/18/25 1322 NA 139 K 3.6 CL 102 CO2 23 BUN 20 CREATININE 1.36* GLUCOSE 108 CALCIUM 9.6 ANIONGAP 14* LIVER PROFILE: Recent Labs 04/18/25 1322 AST 22 ALT 10 BILITOT 0.7 ALKPHOS 180* PROT 6.9 PT/INR: Recent Labs 04/18/25 1322 PROTIME 10.6 INR 1.0 CARDIAC ENZYMES: No results for input(s): "TROPONINI" in the last 72 hours. Procalcitonin: No results found for: PROCAL Urine Culture: No results found for this or any previous visit. COVID-19 PCR: No results for input(s): "COVID19" in the last 72 hours. I reviewed: [x] laboratory results [x] radiographic results At the time of today's encounter. Pt was advised of the results. Data: (CAT1) Reviewed 3 or more notes from different specialty or health system (each=1). (CAT1) Reviewed 3 or more labs/studies previously ordered by me not previously counted (each=1, panels count as 1). (CAT1) Ordered 3 or more new labs and/or studies (each=1, panels count as 1). (LOW: 2x CAT1 or independent historian MOD: 3x CAT1 or 1x CAT3 EXTENSIVE: 3x CAT1 and 1x CAT3) Assessment Discussed management with the ED provider and agree with hospitalization. Acute, acute on chronic, unstable/uncontrolled chronic problems/diagnoses: Retinal artery occlusion/possible sub acute stroke Vertebral artery narrowing Suspect vascular dementia- not diagnosed- significant volume loss on CT Carotid artery stenosis Essential htn Nicotine dependence Stable chronic problems affecting care, new non-acute diagnoses: Hypothyroidism- synthroid 2. Chronic bronchitis- never diagnosed or worked up for copd Plan As a result of the above findings & factors, the following mgmt was pursued: - admit as inpatient - consult neuro - MRI brain - echocardiogram - asa 81 mg daily - atorvastatin 40 mg - nicotine patch - no acute kidney injury, patient cret is 2/10 higher than baseline - labatetalol prn - hgb A1c - lipid panel - follow up ophthalmology at discharge - blood pressure control- resumed Norvasc home dose, - am labs, replace lytes prn - PT/OT/CM/SW - delirium precautions: increase activity - DVT prophylaxis: encourage ambulation Advance Directive: Prior Anticipated Discharge - Date - 04/20/2025 - Location - Skilled Facility - Pending the following - stroke work up Toxic drug monitoring/narrow therapeutic index drug monitoring : # Drug name : n/a # Route administered : n/a # Method of monitoring : n/a Extended Emergency Contact Information Primary Emergency Contact: Piper Hamilton (POA) Mobile Relation: Niece [employer] Diana Kohli : 1940 Primary Care Physician: Charlene Walker MD The patient and/or family/surrogate voluntarily agreed to participate in ACP services. Patient s cognitive capacity: alert oriented x 3 Code Status: [X_] [FULL CODE - Continue all advanced life support: CPR,intubation,invasive procedures] [_] [DNR-CCA - DO NOT do CPR, intubation] [_] [DNR-LOAN CLERK - Comfort care only] [_] DNR form [was/was not] signed Summary of discussion: The patient health care POA/ surrogate is the following: self. Possible cva that instigated the ACP on this DOS, relevant PMH, functional status, goals of care, discussed with patient was discussed with patient who is a Full code I answered all the patient/family questions that I could within the range and scope of the current medical situation. We discussed the medical conditions, risks, benefits, outcomes, and goals of care at this time for the patient's medical issues at hand in the face of the patient's chronic issues and current presentation. Total time spent: 5 minutes were spent discussing the patient's resuscitation status, advance care planning, and end of life care, with patient and/or family/surrogate. Petrona Taylor Division of Hospitalist Medicine [facility] [1] Past Medical History: Diagnosis Date Disease of thyroid gland Hypertension 01/01/2024 [2] Past Surgical History: Procedure Laterality Date CHOLECYSTECTOMY NECK EXPLORATION 01/02/2024 INCISION AND DRAINAGE DEEP ABCESS OR HEMATOMA SOFT TISSUE NECK OR THORAX [3] No family history on file. [4] Current Facility-Administered Medications: sodium chloride 0.9 % infusion, 5-250 mL/hr, IntraVENous, PRN, Darcy L. Elmo, SHOP ROUTER - ENTRY LEVEL MECHANICAL ENGINEER sodium chloride 0.9 % infusion, 50 mL/hr, IntraVENous, Continuous, Darcy L. Elmo, SHOP ROUTER - ENTRY LEVEL MECHANICAL ENGINEER, Last Rate: 50 mL/hr at 04/18/25 1323, 50 mL/hr at 04/18/25 1323 sodium chloride 0.9% (NS) flush 5-40 mL, 5-40 mL, IntraVENous, q12h, Darcy Borrego, SHOP ROUTER - ENTRY LEVEL MECHANICAL ENGINEER, 10 mL at 04/18/25 1322 sodium chloride 0.9% (NS) flush 5-40 mL, 5-40 mL, IntraVENous, PRN, Darcy Borrego, SHOP ROUTER - ENTRY LEVEL MECHANICAL ENGINEER Current Outpatient Medications: amLODIPine (Norvasc) 5 MG tablet, Take 5 mg by mouth before bedtime., Disp: , Rfl: aspirin 81 MG EC tablet, Take 81 mg by mouth daily., Disp: , Rfl: cholecalciferol (Vitamin D-3) 25 MCG (1000 UT) capsule, Take 1,000 Units by mouth daily., Disp: , Rfl: escitalopram (Lexapro) 10 MG tablet, Take 10 mg by mouth daily., Disp: , Rfl: levothyroxine (Synthroid, Levoxyl) 112 MCG tablet, Take 112 mcg by mouth every morning (before breakfast)., Disp: , Rfl: meclizine (Antivert) 25 MG tablet, Take 12.5 mg by mouth in the morning., Disp: , Rfl: [5] No Known Allergies Cosigned by Ly Worrell MD at 04/18/2025 6:07 PM EDT documented in this encounter [facility] 04-18-2025 Emergency department Note Emergency Department Encounter [facility] EMERGENCY DEPT Patient: Diana Kohli : 1940 Date of Evaluation: 04/18/2025 ED Supervising Physician: Rafat Farley MD I independently examined and evaluated Diana Kohli. I personally saw the patient and performed a substantive portion of the visit including all aspects of the medical decision making, made/approved the management plan, and take responsibility for the patient management. In brief, Diana Kohli is a 84 y.o. female that presents to the emergency department with near-total vision loss left eye starting 2 days ago. Was seen here yesterday, seen by ophthalmology today, they diagnosed central retinal artery occlusion and she was sent here for admission and workup for source of possible emboli including carotid, heart studies, etc. No headaches, no pain, no signs of stroke otherwise. Focused exam: Blood pressure is elevated, she is not on blood pressure medication, she is ambulatory without difficulty, she can only see a little bit of light out of the lateral corner of her left eye but has good vision out of the right eye. Otherwise cranial nerves are intact, moves all extremities well, etc. 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 Diagnostic considerations: As above [place] results and interpretations: EKG per my interpretation shows normal sinus rhythm at a rate of 70, otherwise normal Treatment summary: Consultations: SCREENINGS NIH Stroke Scale 1A. Level of Consciousness: Alert, Keenly Responsive 1B. Ask Month and Age: Both Questions Right 1C. Blink Eyes & Squeeze Hands: Performs Both Tasks 2. Best Gaze: Normal 3. Visual: Complete Hemianopia 4. Facial Palsy: Normal Symmetrical Movements 5A. Motor - Left Arm: No Drift 5B. Motor - Right Arm: No Drift 6A. Motor - Left Leg: No Drift 6B. Motor - Right Leg: No Drift 7. Limb Ataxia: Absent 8. Sensory Loss: Normal 9. Best Language: No Aphasia 10. Dysarthria: Normal 11. Extinction and Inattention: No Abnormality NIH Stroke Scale: 2 CRITICAL CARE TIME I, Dr. Rafat Farley, am the evaporator operator of record. All diagnostic, treatment, and disposition decisions were made by myself in conjunction with the resident or TANMAY I supervised for this case. For all further details of the patient's emergency department visit, please see their documentation. (Please note that portions of this note may have been completed with a voice recognition program. Efforts were made to edit the dictations but occasionally words are mis-transcribed.) Rafat Farley MD Acute Care [facility] Rafat Farley MD 04/18/25 1301 EMERGENCY DEPARTMENT ENCOUNTER Pt Name: Diana Kohli Birthdate 1940 Date of evaluation: 04/18/2025 ED Provider: Darcy Borrego APRN - [facility] EDcare was supervised by Dr. Mendez who independently examined and evaluated the patient. Please see their attestation note for further details. CHIEF COMPLAINT Chief Complaint Patient presents with Eye Problem Pt came in via triage from her eye doctor where she stated he 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 Pt states she woke up Monday morning and had complete L eye blindness. HISTORY OF PRESENT ILLNESS (Location/Symptom, Timing/Onset, Context/Setting, Quality, Duration, Modifying Factors, Severity) Note limiting factors. I wore appropriate PPE for the entirety of this encounter. HPI Diana Kohli is a 84 y.o. who presents to the emergency department complaining of vision loss to the left eye. Patient reports that this started yesterday. Patient states that she was seen in the ED when this occurred and advised to follow-up with ophthalmology outpatient. Patient was able to get into the umbrella tipper today and reports that the umbrella tipper advised her to return to ED for stroke evaluation due to concern for retinal artery occlusion. Patient reports that she suffered from sudden loss of vision to the left eye, entirely. Patient otherwise denies symptoms. Patient denies headache, lightheadedness, dizziness, fever, chills, chest pain, palpitations, shortness of breath, cough, abdominal pain, nausea, vomiting, diarrhea, constipation. Denies dysuria, hematuria, or polyuria. Nursing Notes were reviewed. Limitations to history: None Outside historians: None REVIEW OF SYSTEMS Review of Systems Pertinent positives and negatives as per HPI. 13 systems reviewed as detailed above. PAST MEDICAL HISTORY Medical History[1] SURGICAL HISTORY Surgical History[2] CURRENT MEDICATIONS Previous Medications AMLODIPINE (NORVASC) 5 MG TABLET Take 5 mg by mouth before bedtime. ASPIRIN 81 MG EC TABLET Take 81 mg by mouth daily. CHOLECALCIFEROL (VITAMIN D-3) 25 MCG (1000 UT) CAPSULE Take 1,000 Units by mouth daily. ESCITALOPRAM (LEXAPRO) 10 MG TABLET Take 10 mg by mouth daily. LEVOTHYROXINE (SYNTHROID, LEVOXYL) 112 MCG TABLET Take 112 mcg by mouth every morning (before breakfast). MECLIZINE (ANTIVERT) 25 MG TABLET Take 12.5 mg by mouth in the morning. ALLERGIES Patient has no known allergies. FAMILY HISTORY Family History[3] SOCIAL HISTORY Social History[4] SCREENINGS NIH Stroke Scale 1A. Level of Consciousness: Alert, Keenly Responsive 1B. Ask Month and Age: Both Questions Right 1C. Blink Eyes & Squeeze Hands: Performs Both Tasks 2. Best Gaze: Normal 3. Visual: Complete Hemianopia 4. Facial Palsy: Normal Symmetrical Movements 5A. Motor - Left Arm: No Drift 5B. Motor - Right Arm: No Drift 6A. Motor - Left Leg: No Drift 6B. Motor - Right Leg: No Drift 7. Limb Ataxia: Absent 8. Sensory Loss: Normal 9. Best Language: No Aphasia 10. Dysarthria: Normal 11. Extinction and Inattention: No Abnormality NIH Stroke Scale: 2 PHYSICAL EXAM ED Triage Vitals [04/18/25 1243] Temp Heart Rate Resp BP 36.1 C (97 F) 67 18 (!) 182/92 SpO2 Temp Source Heart Rate Source Patient Position 97 % Temporal Monitor -- BP Location FiO2 (%) -- -- Physical Exam Vitals and nursing note reviewed. Constitutional: General: She is not in acute distress. Appearance: She is well-developed. HENT: Head: Normocephalic and atraumatic. Eyes: General: Lids are normal. Visual field deficit present. Extraocular Movements: Extraocular movements intact. Conjunctiva/sclera: Conjunctivae normal. Comments: Left eye vision loss. Pupils dilated on exam Cardiovascular: Rate and Rhythm: Normal rate and regular rhythm. Heart sounds: No murmur heard. Pulmonary: Effort: Pulmonary effort is normal. No respiratory distress. Breath sounds: Normal breath sounds. Abdominal: Palpations: Abdomen is soft. Tenderness: There is no abdominal tenderness. Musculoskeletal: General: No swelling. Cervical back: Neck supple. Skin: General: Skin is warm and dry. Capillary Refill: Capillary refill takes less than 2 seconds. Neurological: Mental Status: She is alert and oriented to person, place, and time. GCS: GCS eye subscore is 4. GCS verbal subscore is 5. GCS motor subscore is 6. Sensory: Sensation is intact. Motor: Motor function is intact. Coordination: Coordination is intact. Gait: Gait is intact. Comments: Left eye vision loss Psychiatric: Mood and Affect: Mood normal. DIAGNOSTIC RESULTS RADIOLOGY (Per Emergency Physician): Interpretation per the Radiologist below, if available at the time of this note: CT head wo IV contrast Final Result Impression: Likely chronic small vessel ischemic changes in the periventricular white matter. No acute intracranial abnormality. Examination: CT angiogram of head Indication: Concern for left retinal artery occlusion Technique: Thin section axial CTA images of the intracranial circulation were obtained at 0.5 mm intervals following the administration of intravenous contrast (75 mL Isovue 370). Dose reduction was employed with automatic exposure control. Coronal and sagittal reconstructed images were also provided for review. Images were reformatted on a 3-D workstation concurrently by myself with volume rendering. Findings: Calcification of the bilateral carotid siphons. There is significant calcification, atherosclerosis and narrowing of the cranial segment of the left vertebral artery with high-grade stenosis measuring at least 75-80 percent. The anterior and posterior circulation are grossly intact. No abnormal branch cutoff is demonstrated. There is no sizable intracranial aneurysm. There is filling of the ophthalmic artery and some of its branch vessels vessels within the bilateral orbits, however assessment of the retinal artery is limited on this study. There is subtle vascular enhancement about the bilateral optic nerves, however. The bilateral globes are unremarkable on this study. The dural venous sinuses are grossly patent. Impression: Ophthalmic arteries and some of its branch vessels appear patent. 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 Grossly patent intracranial vasculature without large vessel occlusion. Dense calcification of the carotid siphons. Examination: CT angiogram neck Indication: Concern for left retinal artery occlusion Technique: Axial CT angiographic images of the neck were obtained with IV contrast (75 mL Isovue 370) at 0.5 mm intervals from level the nasopharynx to the thoracic inlet. Dose reduction was employed with automatic exposure control. Coronal and sagittal reconstructed images were also provided for review. Images were reformatted on a separate 3-D workstation by myself and reviewed with volume rendering. NASCET criteria was used to assess stenoses noted on this exam (if present). Findings: The bilateral common carotid arteries are grossly patent. There is calcification of the bilateral carotid bifurcations. Approximate 40 percent narrowing of the right internal carotid artery origin, secondary to calcified plaque. Approximate 60 percent short segment stenosis of the proximal left internal carotid artery as noted on coronal image 111 and axial image 433, series 3. The bilateral external carotid arteries are patent. No acute vascular dissection is noted. The dominant right cervical vertebral artery. The left vertebral artery is slightly small in caliber throughout. There does appear to be significant narrowing of the proximal left vertebral artery at its origin and slightly distal to this measuring at least 50 percent or slightly greater. The bilateral cervical vertebral arteries are otherwise grossly patent. There is significant calcification and soft plaque of the visualized portion of the aortic arch. Mild to moderate degenerative changes of the cervical spine with mild reversal of cervical lordosis. At least moderate degenerative changes at the C1-C2 articulation. Impression: Calcification of the bilateral carotid bifurcations with associated stenosis. Slightly distal to the origin of the left internal carotid artery there is approximate 60 percent stenosis. Approximate 40 percent short segment narrowing of the right internal carotid artery origin. Narrowing of the proximal left vertebral artery. CTA of the head is detailed above in a separate report. Report Dictated on Electronically Signed By: Jose Alberto Romero MD Electronically Signed Date/Time: 04/18/2025 2:50 PM EDT CTA head neck angio w and wo IV contrast Final Result Impression: Likely chronic small vessel ischemic changes in the periventricular white matter. No acute intracranial abnormality. Examination: CT angiogram of head Indication: Concern for left retinal artery occlusion Technique: Thin section axial CTA images of the intracranial circulation were obtained at 0.5 mm intervals following the administration of intravenous contrast (75 mL Isovue 370). Dose reduction was employed with automatic exposure control. Coronal and sagittal reconstructed images were also provided for review. Images were reformatted on a 3-D workstation concurrently by myself with volume rendering. Findings: Calcification of the bilateral carotid siphons. There is significant calcification, atherosclerosis and narrowing of the cranial segment of the left vertebral artery with high-grade stenosis measuring at least 75-80 percent. The anterior and posterior circulation are grossly intact. No abnormal branch cutoff is demonstrated. There is no sizable intracranial aneurysm. There is filling of the ophthalmic artery and some of its branch vessels vessels within the bilateral orbits, however assessment of the retinal artery is limited on this study. There is subtle vascular enhancement about the bilateral optic nerves, however. The bilateral globes are unremarkable on this study. The dural venous sinuses are grossly patent. Impression: Ophthalmic arteries and some of its branch vessels appear patent. 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 Grossly patent intracranial vasculature without large vessel occlusion. Dense calcification of the carotid siphons. Examination: CT angiogram neck Indication: Concern for left retinal artery occlusion Technique: Axial CT angiographic images of the neck were obtained with IV contrast (75 mL Isovue 370) at 0.5 mm intervals from level the nasopharynx to the thoracic inlet. Dose reduction was employed with automatic exposure control. Coronal and sagittal reconstructed images were also provided for review. Images were reformatted on a separate 3-D workstation by myself and reviewed with volume rendering. NASCET criteria was used to assess stenoses noted on this exam (if present). Findings: The bilateral common carotid arteries are grossly patent. There is calcification of the bilateral carotid bifurcations. Approximate 40 percent narrowing of the right internal carotid artery origin, secondary to calcified plaque. Approximate 60 percent short segment stenosis of the proximal left internal carotid artery as noted on coronal image 111 and axial image 433, series 3. The bilateral external carotid arteries are patent. No acute vascular dissection is noted. The dominant right cervical vertebral artery. The left vertebral artery is slightly small in caliber throughout. There does appear to be significant narrowing of the proximal left vertebral artery at its origin and slightly distal to this measuring at least 50 percent or slightly greater. The bilateral cervical vertebral arteries are otherwise grossly patent. There is significant calcification and soft plaque of the visualized portion of the aortic arch. Mild to moderate degenerative changes of the cervical spine with mild reversal of cervical lordosis. At least moderate degenerative changes at the C1-C2 articulation. Impression: Calcification of the bilateral carotid bifurcations with associated stenosis. Slightly distal to the origin of the left internal carotid artery there is approximate 60 percent stenosis. Approximate 40 percent short segment narrowing of the right internal carotid artery origin. Narrowing of the proximal left vertebral artery. CTA of the head is detailed above in a separate report. Report Dictated on Electronically Signed By: Jose Alberto Romero MD Electronically Signed Date/Time: 04/18/2025 2:50 PM EDT LABS: Labs Reviewed COMPREHENSIVE METABOLIC PANEL - Abnormal Result Value SODIUM 139 POTASSIUM 3.6 CHLORIDE 102 CARBON DIOXIDE 23 ANION GAP 14 (*) UREA NITROGEN 20 CREATININE 1.36 (*) GLUCOSE 108 CALCIUM 9.6 AST (SGOT) 22 ALT 10 ALKALINE PHOSPHATASE 180 (*) ALBUMIN 3.5 BILIRUBIN, TOTAL 0.7 TOTAL PROTEIN 6.9 eGFR 39.0 (*) CBC WITH AUTO DIFFERENTIAL - Normal Auto WBC 9.7 RBC 5.05 Hemoglobin 15.4 Hematocrit 46.6 MCV 92.3 MCH 30.5 MCHC 33.0 RDW 13.1 Platelets 253 MPV 9.3 nRBC 0.0 Neutrophils Relative 64.7 Lymphocytes Relative 25.1 Monocytes Relative 6.9 Eosinophils Relative 2.7 Basophils Relative 0.3 Immature Grans % 0.3 Neutrophils Absolute 6.3 Lymphocytes Absolute 2.4 Monocytes Absolute 0.7 Eosinophils Absolute 0.3 Basophils Absolute 0.0 Immature Grans Absolute 0.0 HIGH SENSITIVITY TROPONIN, SERIAL BASELINE - Normal Troponin HS Serial Baseline 7 PROTIME & APTT - Normal PROTHROMBIN TIME 10.6 INR 1.0 APTT 28.2 COMPREHENSIVE METABOLIC PANEL WITH MG REFLEX Narrative: The following orders were created for panel order Comprehensive Metabolic Panel with Mg Reflex. Procedure Abnormality Status --------- ------ Comprehensive metabolic ...[[id number]] Abnormal Final result Please view results for these tests on the individual orders. HIGH SENSITIVITY TROPONIN, SERIAL, SECOND TEST POCT GLUCOSE METER All other labs were within normal range or not returned as of this dictation. EMERGENCY DEPARTMENT COURSE and DIFFERENTIAL DIAGNOSIS/MDM: Vitals: Vitals: 04/18/25 1243 04/18/25 1259 BP: (!) 182/92 Pulse: 67 Resp: 18 Temp: 36.1 C (97 F) TempSrc: Temporal SpO2: 97% Weight: 83.9 kg (185 lb) Height: 1.575 m (5' 2") Medications sodium chloride 0.9% (NS) flush 5-40 mL (10 mL IntraVENous Given 04/18/25 1322) sodium chloride 0.9% (NS) flush 5-40 mL (has no administration in time range) sodium chloride 0.9 % infusion (has no administration in time range) sodium chloride 0.9 % infusion (50 mL/hr IntraVENous New Bag 04/18/25 1323) sodium chloride 0.9 % bolus 250 mL (250 mL IntraVENous New Bag 04/18/25 1330) iopamidol (Isovue-370) 76 % injection 75 mL (75 mL IntraVENous Given 04/18/25 1424) MDM elements: The patient presented with chief complaint of vision loss of the left eye. The differential diagnosis associated with this patient's presentation includes acute glaucoma, uveitis, keratitis, conjunctivitis, retinal detachment, central retinal vein occlusion, central retinal artery occlusion, vitreous hemorrhage, macular degeneration, anterior ischemic optic neuropathy such as temporal arteritis, optic neuritis, trauma, amaurosis fugax, ophthalmic migraine, CVA. Our workup consisted of ordering/reviewing: A thorough physical exam was performed as detailed above. Patient seen in the ED yesterday at which time eye exam was noted to be unremarkable without elevation in inflammatory markers concerning for GCA. Patient sent over by Dr. Bell with ophthalmology for evaluation for retinal artery occlusion stroke B orders initiated; deferred stroke a due to window since the symptoms have started. CBC shows no leukocytosis or anemia. CMP shows JESUS with a creatinine 1.36 and EGFR of 39. Coagulation studies are within normal limits. Troponin level 7. CT of the head without IV contrast was obtained showed no acute intracranial abnormalities. CTA of the head and neck showed vertebral artery narrowing however otherwise unremarkable. Twelve-lead EKG shows no signs of acute ischemic process or dangerous arrhythmia. 250 mL crystalloid fluid bolus administered to promote perfusion. I reached out to [facility] hospitalist team who agreed to admit patient under their service for further monitoring and evaluation with plan for neurology consult and MRI. I discussed their care with Dr. Farley, ED attending, who performed an independent evaluation of the patient and is in agreement with plan of care and disposition. Please see their note for further detail.. The patient will be Admitted. Patient is in agreement with this plan. PROCEDURES: Unless otherwise noted below, none Procedures CRITICAL CARE TIME None FINAL IMPRESSION 1. Acute loss of vision, left 2. Hypertension, unspecified type DISPOSITION Admit 04/18/2025 03:26:17 PM PATIENT REFERRED TO: No follow-up provider specified. DISCHARGE MEDICATIONS: New Prescriptions No medications on file (Comment: Please note this report has been produced using speech recognition software and may contain errors related to that system including errors in grammar, punctuation, and spelling, as well as words and phrases that may be inappropriate. If there are any questions or concerns please feel free to contact the dictating provider for clarification.) Darcy Borrego APRN - ENTRY LEVEL MECHANICAL ENGINEER (electronically signed) Emergency Medicine Provider [1] Past Medical History: Diagnosis Date Disease of thyroid gland Hypertension 01/01/2024 [2] Past Surgical History: Procedure Laterality Date CHOLECYSTECTOMY NECK EXPLORATION 01/02/2024 INCISION AND DRAINAGE DEEP ABCESS OR HEMATOMA SOFT TISSUE NECK OR THORAX [3] No family history on file. [4] Social History Socioeconomic History Marital status: Tobacco Use Smoking status: Every Day Current packs/day: 1.00 Average packs/day: 1 pack/day for 17.3 years (17.3 ttl pk-yrs) Types: Cigarettes Start date: 12/18/2007 Smokeless tobacco: Never Substance and Sexual Activity Alcohol use: Not Currently Drug use: Not Currently Sexual activity: Not Currently Social Drivers of Health Financial Resource Strain: Low Risk (12/29/2023) Overall Financial Resource Strain (CARDIA) Difficulty of Paying Living Expenses: Not very hard Food Insecurity: No Food Insecurity (12/29/2023) Hunger Vital Sign Worried About Running Out of Food in the Last Year: Never true Ran Out of Food in the Last Year: Never true Transportation Needs: No Transportation Needs (12/31/2023) PRAPARE - Transportation Lack of Transportation (Medical): No Lack of Transportation (Non-Medical): No Physical Activity: Inactive (12/29/2023) Exercise Vital Sign Days of Exercise per Week: 0 days Minutes of Exercise per Session: 0 min Stress: No Stress Concern Present (12/29/2023) [employer] [place] [employer] - Occupational Stress Questionnaire Feeling of Stress : Only a little Social Connections: Moderately Integrated (12/29/2023) Social Connection and Isolation Panel [NHANES] Frequency of Communication with Friends and Family: Three times a week Frequency of Social Gatherings with Friends and Family: Three times a week Attends Baptism Services: 1 to 4 times per year Active Member of Clubs or Organizations: Yes Attends Club or Organization Meetings: 1 to 4 times per year Marital Status: Intimate Partner Violence: Not At Risk (12/31/2023) Humiliation, Afraid, Rape, and Kick questionnaire Fear of Current or Ex-Partner: No Emotionally Abused: No Physically Abused: No Sexually Abused: No Housing Stability: Low Risk (12/31/2023) Housing Stability Vital Sign Unable to Pay for Housing in the Last Year: No Number of Places Lived in the Last Year: 1 Unstable Housing in the Last Year: No JAXSON Silvestre CNP 04/18/25 1534 Cosigned by Rafat Farley MD at 04/18/2025 4:46 PM EDT documented in this encounter [facility] 04-18-2025 Physician Emergency department Note Emergency Department Encounter [facility] EMERGENCY DEPT Patient: Diana Kohli : 1940 Date of Evaluation: 04/18/2025 ED Supervising Physician: Rafat Farley MD I independently examined and evaluated Diana Kohli. I personally saw the patient and performed a substantive portion of the visit including all aspects of the medical decision making, made/approved the management plan, and take responsibility for the patient management. In brief, Diana Kohli is a 84 y.o. female that presents to the emergency department with near-total vision loss left eye starting 2 days ago. Was seen here yesterday, seen by ophthalmology today, they diagnosed central retinal artery occlusion and she was sent here for admission and workup for source of possible emboli including carotid, heart studies, etc. No headaches, no pain, no signs of stroke otherwise. Focused exam: Blood pressure is elevated, she is not on blood pressure medication, she is ambulatory without difficulty, she can only see a little bit of light out of the lateral corner of her left eye but has good vision out of the right eye. Otherwise cranial nerves are intact, moves all extremities well, etc. 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 Diagnostic considerations: As above [place] results and interpretations: EKG per my interpretation shows normal sinus rhythm at a rate of 70, otherwise normal Treatment summary: Consultations: SCREENINGS NIH Stroke Scale 1A. Level of Consciousness: Alert, Keenly Responsive 1B. Ask Month and Age: Both Questions Right 1C. Blink Eyes & Squeeze Hands: Performs Both Tasks 2. Best Gaze: Normal 3. Visual: Complete Hemianopia 4. Facial Palsy: Normal Symmetrical Movements 5A. Motor - Left Arm: No Drift 5B. Motor - Right Arm: No Drift 6A. Motor - Left Leg: No Drift 6B. Motor - Right Leg: No Drift 7. Limb Ataxia: Absent 8. Sensory Loss: Normal 9. Best Language: No Aphasia 10. Dysarthria: Normal 11. Extinction and Inattention: No Abnormality NIH Stroke Scale: 2 CRITICAL CARE TIME I, Dr. Rafat Farley, am the evaporator operator of record. All diagnostic, treatment, and disposition decisions were made by myself in conjunction with the resident or TANMAY I supervised for this case. For all further details of the patient's emergency department visit, please see their documentation. (Please note that portions of this note may have been completed with a voice recognition program. Efforts were made to edit the dictations but occasionally words are mis-transcribed.) Rafat Farley MD [facility] Rafat Farley MD 04/18/25 1305 [employer] Phone: 04-18-2025 Physician Emergency department Note EMERGENCY DEPARTMENT ENCOUNTER Pt Name: Diana Kohli Birthdate 1940 Date of evaluation: 04/18/2025 ED Provider: Darcy Borrego APRN - ENTRY LEVEL MECHANICAL ENGINEER EDcare was supervised by Dr. Mendez who independently examined and evaluated the patient. Please see their attestation note for further details. CHIEF COMPLAINT Chief Complaint Patient presents with Eye Problem Pt came in via triage from her eye doctor where she stated he 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 Pt states she woke up Monday morning and had complete L eye blindness. HISTORY OF PRESENT ILLNESS (Location/Symptom, Timing/Onset, Context/Setting, Quality, Duration, Modifying Factors, Severity) Note limiting factors. I wore appropriate PPE for the entirety of this encounter. HPI Diana Kohli is a 84 y.o. who presents to the emergency department complaining of vision loss to the left eye. Patient reports that this started yesterday. Patient states that she was seen in the ED when this occurred and advised to follow-up with ophthalmology outpatient. Patient was able to get into the umbrella tipper today and reports that the umbrella tipper advised her to return to ED for stroke evaluation due to concern for retinal artery occlusion. Patient reports that she suffered from sudden loss of vision to the left eye, entirely. Patient otherwise denies symptoms. Patient denies headache, lightheadedness, dizziness, fever, chills, chest pain, palpitations, shortness of breath, cough, abdominal pain, nausea, vomiting, diarrhea, constipation. Denies dysuria, hematuria, or polyuria. Nursing Notes were reviewed. Limitations to history: None Outside historians: None REVIEW OF SYSTEMS Review of Systems Pertinent positives and negatives as per HPI. 13 systems reviewed as detailed above. PAST MEDICAL HISTORY Medical History[1] SURGICAL HISTORY Surgical History[2] CURRENT MEDICATIONS Previous Medications AMLODIPINE (NORVASC) 5 MG TABLET Take 5 mg by mouth before bedtime. ASPIRIN 81 MG EC TABLET Take 81 mg by mouth daily. CHOLECALCIFEROL (VITAMIN D-3) 25 MCG (1000 UT) CAPSULE Take 1,000 Units by mouth daily. ESCITALOPRAM (LEXAPRO) 10 MG TABLET Take 10 mg by mouth daily. LEVOTHYROXINE (SYNTHROID, LEVOXYL) 112 MCG TABLET Take 112 mcg by mouth every morning (before breakfast). MECLIZINE (ANTIVERT) 25 MG TABLET Take 12.5 mg by mouth in the morning. ALLERGIES Patient has no known allergies. FAMILY HISTORY Family History[3] SOCIAL HISTORY Social History[4] SCREENINGS NIH Stroke Scale 1A. Level of Consciousness: Alert, Keenly Responsive 1B. Ask Month and Age: Both Questions Right 1C. Blink Eyes & Squeeze Hands: Performs Both Tasks 2. Best Gaze: Normal 3. Visual: Complete Hemianopia 4. Facial Palsy: Normal Symmetrical Movements 5A. Motor - Left Arm: No Drift 5B. Motor - Right Arm: No Drift 6A. Motor - Left Leg: No Drift 6B. Motor - Right Leg: No Drift 7. Limb Ataxia: Absent 8. Sensory Loss: Normal 9. Best Language: No Aphasia 10. Dysarthria: Normal 11. Extinction and Inattention: No Abnormality NIH Stroke Scale: 2 PHYSICAL EXAM ED Triage Vitals [04/18/25 1243] Temp Heart Rate Resp BP 36.1 C (97 F) 67 18 (!) 182/92 SpO2 Temp Source Heart Rate Source Patient Position 97 % Temporal Monitor -- BP Location FiO2 (%) -- -- Physical Exam Vitals and nursing note reviewed. Constitutional: General: She is not in acute distress. Appearance: She is well-developed. HENT: Head: Normocephalic and atraumatic. Eyes: General: Lids are normal. Visual field deficit present. Extraocular Movements: Extraocular movements intact. Conjunctiva/sclera: Conjunctivae normal. Comments: Left eye vision loss. Pupils dilated on exam Cardiovascular: Rate and Rhythm: Normal rate and regular rhythm. Heart sounds: No murmur heard. Pulmonary: Effort: Pulmonary effort is normal. No respiratory distress. Breath sounds: Normal breath sounds. Abdominal: Palpations: Abdomen is soft. Tenderness: There is no abdominal tenderness. Musculoskeletal: General: No swelling. Cervical back: Neck supple. Skin: General: Skin is warm and dry. Capillary Refill: Capillary refill takes less than 2 seconds. Neurological: Mental Status: She is alert and oriented to person, place, and time. GCS: GCS eye subscore is 4. GCS verbal subscore is 5. GCS motor subscore is 6. Sensory: Sensation is intact. Motor: Motor function is intact. Coordination: Coordination is intact. Gait: Gait is intact. Comments: Left eye vision loss Psychiatric: Mood and Affect: Mood normal. DIAGNOSTIC RESULTS RADIOLOGY (Per Emergency Physician): Interpretation per the Radiologist below, if available at the time of this note: CT head wo IV contrast Final Result Impression: Likely chronic small vessel ischemic changes in the periventricular white matter. No acute intracranial abnormality. Examination: CT angiogram of head Indication: Concern for left retinal artery occlusion Technique: Thin section axial CTA images of the intracranial circulation were obtained at 0.5 mm intervals following the administration of intravenous contrast (75 mL Isovue 370). Dose reduction was employed with automatic exposure control. Coronal and sagittal reconstructed images were also provided for review. Images were reformatted on a 3-D workstation concurrently by myself with volume rendering. Findings: Calcification of the bilateral carotid siphons. There is significant calcification, atherosclerosis and narrowing of the cranial segment of the left vertebral artery with high-grade stenosis measuring at least 75-80 percent. The anterior and posterior circulation are grossly intact. No abnormal branch cutoff is demonstrated. There is no sizable intracranial aneurysm. There is filling of the ophthalmic artery and some of its branch vessels vessels within the bilateral orbits, however assessment of the retinal artery is limited on this study. There is subtle vascular enhancement about the bilateral optic nerves, however. The bilateral globes are unremarkable on this study. The dural venous sinuses are grossly patent. Impression: Ophthalmic arteries and some of its branch vessels appear patent. 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 Grossly patent intracranial vasculature without large vessel occlusion. Dense calcification of the carotid siphons. Examination: CT angiogram neck Indication: Concern for left retinal artery occlusion Technique: Axial CT angiographic images of the neck were obtained with IV contrast (75 mL Isovue 370) at 0.5 mm intervals from level the nasopharynx to the thoracic inlet. Dose reduction was employed with automatic exposure control. Coronal and sagittal reconstructed images were also provided for review. Images were reformatted on a separate 3-D workstation by myself and reviewed with volume rendering. NASCET criteria was used to assess stenoses noted on this exam (if present). Findings: The bilateral common carotid arteries are grossly patent. There is calcification of the bilateral carotid bifurcations. Approximate 40 percent narrowing of the right internal carotid artery origin, secondary to calcified plaque. Approximate 60 percent short segment stenosis of the proximal left internal carotid artery as noted on coronal image 111 and axial image 433, series 3. The bilateral external carotid arteries are patent. No acute vascular dissection is noted. The dominant right cervical vertebral artery. The left vertebral artery is slightly small in caliber throughout. There does appear to be significant narrowing of the proximal left vertebral artery at its origin and slightly distal to this measuring at least 50 percent or slightly greater. The bilateral cervical vertebral arteries are otherwise grossly patent. There is significant calcification and soft plaque of the visualized portion of the aortic arch. Mild to moderate degenerative changes of the cervical spine with mild reversal of cervical lordosis. At least moderate degenerative changes at the C1-C2 articulation. Impression: Calcification of the bilateral carotid bifurcations with associated stenosis. Slightly distal to the origin of the left internal carotid artery there is approximate 60 percent stenosis. Approximate 40 percent short segment narrowing of the right internal carotid artery origin. Narrowing of the proximal left vertebral artery. CTA of the head is detailed above in a separate report. Report Dictated on Electronically Signed By: Jose Alberto Romero MD Electronically Signed Date/Time: 04/18/2025 2:50 PM EDT CTA head neck angio w and wo IV contrast Final Result Impression: Likely chronic small vessel ischemic changes in the periventricular white matter. No acute intracranial abnormality. Examination: CT angiogram of head Indication: Concern for left retinal artery occlusion Technique: Thin section axial CTA images of the intracranial circulation were obtained at 0.5 mm intervals following the administration of intravenous contrast (75 mL Isovue 370). Dose reduction was employed with automatic exposure control. Coronal and sagittal reconstructed images were also provided for review. Images were reformatted on a 3-D workstation concurrently by myself with volume rendering. Findings: Calcification of the bilateral carotid siphons. There is significant calcification, atherosclerosis and narrowing of the cranial segment of the left vertebral artery with high-grade stenosis measuring at least 75-80 percent. The anterior and posterior circulation are grossly intact. No abnormal branch cutoff is demonstrated. There is no sizable intracranial aneurysm. There is filling of the ophthalmic artery and some of its branch vessels vessels within the bilateral orbits, however assessment of the retinal artery is limited on this study. There is subtle vascular enhancement about the bilateral optic nerves, however. The bilateral globes are unremarkable on this study. The dural venous sinuses are grossly patent. Impression: Ophthalmic arteries and some of its branch vessels appear patent. 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 Grossly patent intracranial vasculature without large vessel occlusion. Dense calcification of the carotid siphons. Examination: CT angiogram neck Indication: Concern for left retinal artery occlusion Technique: Axial CT angiographic images of the neck were obtained with IV contrast (75 mL Isovue 370) at 0.5 mm intervals from level the nasopharynx to the thoracic inlet. Dose reduction was employed with automatic exposure control. Coronal and sagittal reconstructed images were also provided for review. Images were reformatted on a separate 3-D workstation by myself and reviewed with volume rendering. NASCET criteria was used to assess stenoses noted on this exam (if present). Findings: The bilateral common carotid arteries are grossly patent. There is calcification of the bilateral carotid bifurcations. Approximate 40 percent narrowing of the right internal carotid artery origin, secondary to calcified plaque. Approximate 60 percent short segment stenosis of the proximal left internal carotid artery as noted on coronal image 111 and axial image 433, series 3. The bilateral external carotid arteries are patent. No acute vascular dissection is noted. The dominant right cervical vertebral artery. The left vertebral artery is slightly small in caliber throughout. There does appear to be significant narrowing of the proximal left vertebral artery at its origin and slightly distal to this measuring at least 50 percent or slightly greater. The bilateral cervical vertebral arteries are otherwise grossly patent. There is significant calcification and soft plaque of the visualized portion of the aortic arch. Mild to moderate degenerative changes of the cervical spine with mild reversal of cervical lordosis. At least moderate degenerative changes at the C1-C2 articulation. Impression: Calcification of the bilateral carotid bifurcations with associated stenosis. Slightly distal to the origin of the left internal carotid artery there is approximate 60 percent stenosis. Approximate 40 percent short segment narrowing of the right internal carotid artery origin. Narrowing of the proximal left vertebral artery. CTA of the head is detailed above in a separate report. Report Dictated on Electronically Signed By: Jose Alberto Romero MD Electronically Signed Date/Time: 04/18/2025 2:50 PM EDT LABS: Labs Reviewed COMPREHENSIVE METABOLIC PANEL - Abnormal Result Value SODIUM 139 POTASSIUM 3.6 CHLORIDE 102 CARBON DIOXIDE 23 ANION GAP 14 (*) UREA NITROGEN 20 CREATININE 1.36 (*) GLUCOSE 108 CALCIUM 9.6 AST (SGOT) 22 ALT 10 ALKALINE PHOSPHATASE 180 (*) ALBUMIN 3.5 BILIRUBIN, TOTAL 0.7 TOTAL PROTEIN 6.9 eGFR 39.0 (*) CBC WITH AUTO DIFFERENTIAL - Normal Auto WBC 9.7 RBC 5.05 Hemoglobin 15.4 Hematocrit 46.6 MCV 92.3 MCH 30.5 MCHC 33.0 RDW 13.1 Platelets 253 MPV 9.3 nRBC 0.0 Neutrophils Relative 64.7 Lymphocytes Relative 25.1 Monocytes Relative 6.9 Eosinophils Relative 2.7 Basophils Relative 0.3 Immature Grans % 0.3 Neutrophils Absolute 6.3 Lymphocytes Absolute 2.4 Monocytes Absolute 0.7 Eosinophils Absolute 0.3 Basophils Absolute 0.0 Immature Grans Absolute 0.0 HIGH SENSITIVITY TROPONIN, SERIAL BASELINE - Normal Troponin HS Serial Baseline 7 PROTIME & APTT - Normal PROTHROMBIN TIME 10.6 INR 1.0 APTT 28.2 COMPREHENSIVE METABOLIC PANEL WITH MG REFLEX Narrative: The following orders were created for panel order Comprehensive Metabolic Panel with Mg Reflex. Procedure Abnormality Status --------- ------ Comprehensive metabolic ...[[id number]] Abnormal Final result Please view results for these tests on the individual orders. HIGH SENSITIVITY TROPONIN, SERIAL, SECOND TEST POCT GLUCOSE METER All other labs were within normal range or not returned as of this dictation. EMERGENCY DEPARTMENT COURSE and DIFFERENTIAL DIAGNOSIS/MDM: Vitals: Vitals: 04/18/25 1243 04/18/25 1259 BP: (!) 182/92 Pulse: 67 Resp: 18 Temp: 36.1 C (97 F) TempSrc: Temporal SpO2: 97% Weight: 83.9 kg (185 lb) Height: 1.575 m (5' 2") Medications sodium chloride 0.9% (NS) flush 5-40 mL (10 mL IntraVENous Given 04/18/25 1322) sodium chloride 0.9% (NS) flush 5-40 mL (has no administration in time range) sodium chloride 0.9 % infusion (has no administration in time range) sodium chloride 0.9 % infusion (50 mL/hr IntraVENous New Bag 04/18/25 1323) sodium chloride 0.9 % bolus 250 mL (250 mL IntraVENous New Bag 04/18/25 1330) iopamidol (Isovue-370) 76 % injection 75 mL (75 mL IntraVENous Given 04/18/25 1422) MDM elements: The patient presented with chief complaint of vision loss of the left eye. The differential diagnosis associated with this patient's presentation includes acute glaucoma, uveitis, keratitis, conjunctivitis, retinal detachment, central retinal vein occlusion, central retinal artery occlusion, vitreous hemorrhage, macular degeneration, anterior ischemic optic neuropathy such as temporal arteritis, optic neuritis, trauma, amaurosis fugax, ophthalmic migraine, CVA. Our workup consisted of ordering/reviewing: A thorough physical exam was performed as detailed above. Patient seen in the ED yesterday at which time eye exam was noted to be unremarkable without elevation in inflammatory markers concerning for GCA. Patient sent over by Dr. Bell with ophthalmology for evaluation for retinal artery occlusion stroke B orders initiated; deferred stroke a due to window since the symptoms have started. CBC shows no leukocytosis or anemia. CMP shows JESUS with a creatinine 1.36 and EGFR of 39. Coagulation studies are within normal limits. Troponin level 7. CT of the head without IV contrast was obtained showed no acute intracranial abnormalities. CTA of the head and neck showed vertebral artery narrowing however otherwise unremarkable. Twelve-lead EKG shows no signs of acute ischemic process or dangerous arrhythmia. 250 mL crystalloid fluid bolus administered to promote perfusion. I reached out to [facility] hospitalist team who agreed to admit patient under their service for further monitoring and evaluation with plan for neurology consult and MRI. I discussed their care with Dr. Farley, ED attending, who performed an independent evaluation of the patient and is in agreement with plan of care and disposition. Please see their note for further detail.. The patient will be Admitted. Patient is in agreement with this plan. PROCEDURES: Unless otherwise noted below, none Procedures CRITICAL CARE TIME None FINAL IMPRESSION 1. Acute loss of vision, left 2. Hypertension, unspecified type DISPOSITION Admit 04/18/2025 03:26:17 PM PATIENT REFERRED TO: No follow-up provider specified. DISCHARGE MEDICATIONS: New Prescriptions No medications on file (Comment: Please note this report has been produced using speech recognition software and may contain errors related to that system including errors in grammar, punctuation, and spelling, as well as words and phrases that may be inappropriate. If there are any questions or concerns please feel free to contact the dictating provider for clarification.) Darcy Borrego APRN - [employer]EV[employer]CH[employer]ICAL ENGINEER (electronically signed) Emergency Medicine Provider [1] Past Medical History: Diagnosis Date Disease of thyroid gland Hypertension 01/01/2024 [2] Past Surgical History: Procedure Laterality Date CHOLECYSTECTOMY NECK EXPLORATION 01/02/2024 INCISION AND DRAINAGE DEEP ABCESS OR HEMATOMA SOFT TISSUE NECK OR THORAX [3] No family history on file. [4] Social History Socioeconomic History Marital status: Tobacco Use Smoking status: Every Day Current packs/day: 1.00 Average packs/day: 1 pack/day for 17.3 years (17.3 ttl pk-yrs) Types: Cigarettes Start date: 12/18/2007 Smokeless tobacco: Never Substance and Sexual Activity Alcohol use: Not Currently Drug use: Not Currently Sexual activity: Not Currently Social Drivers of Health Financial Resource Strain: Low Risk (12/29/2023) Overall Financial Resource Strain (CARDIA) Difficulty of Paying Living Expenses: Not very hard Food Insecurity: No Food Insecurity (12/29/2023) Hunger Vital Sign Worried About Running Out of Food in the Last Year: Never true Ran Out of Food in the Last Year: Never true Transportation Needs: No Transportation Needs (12/31/2023) PRAPARE - Transportation Lack of Transportation (Medical): No Lack of Transportation (Non-Medical): No Physical Activity: Inactive (12/29/2023) Exercise Vital Sign Days of Exercise per Week: 0 days Minutes of Exercise per Session: 0 min Stress: No Stress Concern Present (12/29/2023) [employer] [place] [employer] - Occupational Stress Questionnaire Feeling of Stress : Only a little Social Connections: Moderately Integrated (12/29/2023) Social Connection and Isolation Panel [NHANES] Frequency of Communication with Friends and Family: Three times a week Frequency of Social Gatherings with Friends and Family: Three times a week Attends Baptism Services: 1 to 4 times per year Active Member of Clubs or Organizations: Yes Attends Club or Organization Meetings: 1 to 4 times per year Marital Status: Intimate Partner Violence: Not At Risk (12/31/2023) Humiliation, Afraid, Rape, and Kick questionnaire Fear of Current or Ex-Partner: No Emotionally Abused: No Physically Abused: No Sexually Abused: No Housing Stability: Low Risk (12/31/2023) Housing Stability Vital Sign Unable to Pay for Housing in the Last Year: No Number of Places Lived in the Last Year: 1 Unstable Housing in the Last Year: No JAXSON Silvestre CNP 04/18/25 1534 Cosigned by Rafat Farley MD at 04/18/2025 4:46 PM EDT [facility] 04-18-2025 History of Present illness Narrative Images from the original note were not included. 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 Subjective HPI Other Additional comments: ED follow up Va loss OS Comments Pt woke up 30-25 with Va loss left eye (OS); yesterday pt went to ED and stated Va has very foggy. No trauma or falls. No pain. No issues with right eye (OD). Last EE x years ago she did have Cat Surg both eyes (OU) years back. Hx htn - bp in er yesterday 191-180 systolic Last edited by Humaira Bell MD on 04/18/2025 11:35 AM. Allergies[1] Current Medications[2] Medical History[3] Social History Tobacco Use Smoking status: Every Day Current packs/day: 1.00 Average packs/day: 1 pack/day for 17.3 years (17.3 ttl pk-yrs) Types: Cigarettes Start date: 12/18/2007 Smokeless tobacco: Never Substance Use Topics Alcohol use: Not Currently Surgical History[4] Family History[5] Objective Base Eye Exam Visual Acuity (Snellen - Linear) Right Left Dist sc 20/20 CF Dist ph sc NI Tonometry (Applanation, 11:19 AM) Right Left Pressure 10 10 Pupils Dark Right 3mm Left 3mm Visual Sharma Right Left Full Neuro/Psych Oriented x3: Yes Mood/Affect: Normal Dilation Both eyes: 2.5% Phenylephrine, 1.0% Tropicamide @ 11:19 AM Slit Lamp and Fundus Exam Slit Lamp Exam Right Left Lids/Lashes Normal Normal Conjunctiva/Sclera White and quiet White and quiet Cornea Clear Clear Anterior Chamber Deep and quiet Deep and quiet Iris Round and reactive Round and reactive Lens iol iol Anterior Vitreous Normal asteroid hyalosis Fundus Exam Right Left Disc Normal Normal Macula Normal tran red spot with central graying Vessels Normal Normal Periphery Normal Normal Refraction Wearing Rx Sphere Cylinder [place] Add Right -0.50 +0.75 158 +2.25 Left -0.75 +0.25 019 +2.25 Age: 5-6yrs Type: Bi-focal Data Reviewed and Summarized The patient will need the following test completed on: 04/18/2025 1. [facility] Ophthalmology Clinic Diagnosis: Vision loss of left eye (H54.62) Authorizing Provider: DO Humaira Dye MD [1] No Known Allergies [2] Current Outpatient Medications Medication Sig Dispense Refill amLODIPine (Norvasc) 5 MG tablet Take 5 mg by mouth before bedtime. aspirin 81 MG EC tablet Take 81 mg by mouth daily. cholecalciferol (Vitamin D-3) 25 MCG (1000 UT) capsule Take 1,000 Units by mouth daily. escitalopram (Lexapro) 10 MG tablet Take 10 mg by mouth daily. levothyroxine (Synthroid, Levoxyl) 112 MCG tablet Take 112 mcg by mouth every morning (before breakfast). meclizine (Antivert) 25 MG tablet Take 12.5 mg by mouth in the morning. No current facility-administered medications for this encounter. [3] Past Medical History: Diagnosis Date Disease of thyroid gland Hypertension 01/01/2024 [4] Past Surgical History: Procedure Laterality Date CHOLECYSTECTOMY NECK EXPLORATION 01/02/2024 INCISION AND DRAINAGE DEEP ABCESS OR HEMATOMA SOFT TISSUE NECK OR THORAX [5] No family history on file. documented in this encounter [facility] 01-09-2024 History of Present illness Narrative Images from the original note were not included. [facility] [address] [facility] [address] Dept: [phone] Dept Loc: [phone] Assessment and Recommendations Diagnoses and all orders for this visit: Submental abscess (Primary) No reaccumulation of abscess pocket noted. Recommend follow-up with dentistry secondary to odontogenic source of her infection. Electronically signed by Roverto Rebollar D.O. Subjective: Patient: Diana Kohli is a 83 y.o. female HPI Diana Kohli is a 83 y.o. yo female who presents to clinic today for follow-up from incision and drainage of submental abscess. States that she has been doing well denies any reaccumulation of abscess does not have a follow-up appointment with dentistry scheduled Review of Systems 14 point review of systems completed and all negative except as noted in HPI. No Known Allergies Current Outpatient Medications Medication Sig Dispense Refill amLODIPine (Norvasc) 5 MG tablet Take 5 mg by mouth before bedtime. aspirin 81 MG EC tablet Take 81 mg by mouth daily. cefdinir (Omnicef) 300 MG capsule Take 1 capsule (300 mg) by mouth 2 times daily for 8 doses. 8 capsule 0 cholecalciferol (Vitamin D-3) 25 MCG (1000 UT) capsule Take 1,000 Units by mouth daily. escitalopram (Lexapro) 10 MG tablet Take 10 mg by mouth daily. levothyroxine (Synthroid, Levoxyl) 112 MCG tablet Take 112 mcg by mouth every morning (before breakfast). meclizine (Antivert) 25 MG tablet Take 12.5 mg by mouth in the morning. ondansetron ODT (Zofran-ODT) 4 MG disintegrating tablet Take 1 tablet (4 mg) by mouth every 8 hours as needed for nausea or vomiting for up to 7 days. 20 tablet 0 No current facility-administered medications for this visit. Past Medical History: Diagnosis Date Disease of thyroid gland Hypertension 01/01/2024 Past Surgical History: Procedure Laterality Date CHOLECYSTECTOMY NECK EXPLORATION 01/02/2024 INCISION AND DRAINAGE DEEP ABCESS OR HEMATOMA SOFT TISSUE NECK OR THORAX No family history on file. Social History Tobacco Use Smoking status: Every Day Packs/day: 1 Types: Cigarettes Start date: 12/18/2007 Smokeless tobacco: Never Substance Use Topics Alcohol use: Not Currently Objective: There were no vitals taken for this visit. Physical Exam General: Patient is not in acute distress. Appearance: Patient is well-developed. Eyes: Conjunctiva/sclera: Conjunctivae normal. Pupils: Pupils are equal, round, and reactive to light. HENT: Jaw: No trismus. Ears: Microscope brought in for exam. Bilateral external ears normal. Right EAC normal, TM clear with normal middle ear landmarks. Left EAC normal, TM clear with normal middle ear landmarks Nose: No nasal deformity, mucosal edema or rhinorrhea. Mouth: Mucous membranes are not pale, not dry and not cyanotic. No oral lesions. Pharynx: Uvula midline. No oropharyngeal exudate or uvula swelling. Tonsils: No tonsillar exudate. No abnormal masses or lesions Neck: No lymphadenopathy Thyroid: No significant thyromegaly. Trachea: Trachea and phonation normal. No tracheal deviation. Pulmonary: Effort: Pulmonary effort is normal. No respiratory distress. Breath sounds: No stridor. Musculoskeletal: Head: Normocephalic and atraumatic. Neck: Full passive range of motion without pain, neck supple. Skin: General: Skin is warm and dry. Findings: No erythema or rash. Neurological: Cranial Nerves: No cranial nerve deficit. Sensory: No sensory deficit. Coordination: Coordination normal. Extremities: No significant peripheral edema or varicosities Psychiatric: Mood and Affect: Mood and affect normal. Cognition and Memory: Cognition and memory normal. documented in this encounter [facility] 01-06-2024 Hospital course Narrative Images from the original note were not included. Discharge Summary Hospitalist Discharge Summary Diana Kohli : 1940 Admit date: 12/31/2023 Discharge date: 01/06/2024 Admitting Physician: Mani Sanchez MD Primary Care Physician: Charlene Walker MD Visit Status: Inpatient Code Status: Full Code BRIEF HOSPITAL COURSE: This is an 83 yo F with PMHx of HTN who was recently admitted fro submental space cellulitis with inflammatory phlegmon. She was treated with IV antibiotics and had two teeth extracted. The patient started to develop N/V with Augmentin. The patient presented back to the hospital with worsening submental swelling. She was seen by ENT and underwent surgical I and D on 01/01 with drain placed and removed before discharge. The patient was trialed on cefdinir and able to tolerate. She was discharged home in optimized condition. Past Medical History: Diagnosis Date Disease of thyroid gland Hypertension 01/01/2024 Procedures: I and D Hospital Course: See above. See discharge diagnoses list above and medication adjustments below in med rec.The patient is discharged in improved and stable condition. Consults: IP CONSULT TO HOME CARE NEEDS Discharge Instructions: Diet: Dietary Orders (From admission, onward) Start Ordered 01/02/24 1012 Adult diet Regular Diet effective now Question: Diet type Answer: Regular 01/02/24 1011 Activity: as tolerated Recommended Outpatient Tests: Disposition: Patient discharged in stable condition to home . Greater than 31 minutes spent discharging the patient and coming up with patient discharge plan. Vitals: BP 130/81 (BP Location: Left arm, Patient Position: Lying) Pulse 52 Temp 36.4 C (97.6 F) (Temporal) Resp 16 Ht 5' 2" (1.575 m) Wt 185 lb (83.9 kg) SpO2 94% BMI 33.84 kg/m Pulse Ox: SpO2 Av.5 % Min: 93 % Max: 94 % Supplemental O2: O2 Flow Rate (L/min): 2 L/min Physical Exam Constitutional: General: She is not in acute distress. Appearance: She is obese. HENT: Head: Normocephalic and atraumatic. Mouth/Throat: Mouth: Mucous membranes are moist. Comments: +submental incision well-healing with mild erythema/swelling around area Eyes: Extraocular Movements: Extraocular movements intact. Conjunctiva/sclera: Conjunctivae normal. Cardiovascular: Rate and Rhythm: Normal rate and regular rhythm. Pulmonary: Effort: Pulmonary effort is normal. Breath sounds: Normal breath sounds. Abdominal: General: There is no distension. Palpations: Abdomen is soft. Tenderness: There is no abdominal tenderness. Musculoskeletal: General: No swelling. Skin: General: Skin is warm and dry. Neurological: General: No focal deficit present. Mental Status: She is alert and oriented to person, place, and time. Psychiatric: Mood and Affect: Mood normal. Judgment: Judgment normal. LABS: Recent Labs 01/04/245801/05/24 0643 01/06/24 0536 NA 137 135 137 K 3.6 3.8 3.8 CL 109* 107 106 CO2 25 25 26 BUN 19* 13 15 CREATININE 0.96 0.81 1.08* GLUCOSE 82 97 101* CALCIUM 8.1* 8.4 8.3* Recent Labs 01/04/24 0059 01/05/24 0643 01/06/24 0536 WBC 10.9* 9.4 9.8 RBC 3.91 4.34 4.39 HGB 12.3 13.3 13.5 HCT 37.0 40.2 41.7 MCV 94.6 92.6 95.0 MCH 31.5 30.6 30.8 MCHC 33.2 33.1 32.4 RDW 12.7 12.8 13.1 PLT 307 342 371 MPV 9.2 9.1 9.3 Discharge Medications: Medication List START taking these medications cefdinir 300 MG capsule Commonly known as: Omnicef Take 1 capsule (300 mg) by mouth 2 times daily for 8 doses. ondansetron ODT 4 MG disintegrating tablet Commonly known as: Zofran-ODT Take 1 tablet (4 mg) by mouth every 8 hours as needed for nausea or vomiting for up to 7 days. CONTINUE taking these medications amLODIPine 5 MG tablet Commonly known as: Norvasc aspirin 81 MG EC tablet cholecalciferol 25 MCG (1000 UT) capsule Commonly known as: Vitamin D-3 escitalopram 10 MG tablet Commonly known as: Lexapro levothyroxine 112 MCG tablet Commonly known as: Synthroid, Levoxyl meclizine 25 MG tablet Commonly known as: Antivert oxyCODONE-acetaminophen 5-325 MG tablet Commonly known as: Percocet Take 1 tablet by mouth every 6 hours as needed for moderate pain (4-6) or severe pain (7-10) for up to 7 days. STOP taking these medications amoxicillin-clavulanate 875-125 MG tablet Commonly known as: Augmentin predniSONE 10 MG tablet Commonly known as: Deltasone Where to Get Your Medications These medications were sent to [id number] - [place], [place] - [address] [facility] [address] [facility] [id number] ondansetron ODT 4 MG disintegrating tablet These medications were sent to [id number] - [place], [place] - [address] [facility] [address], [facility] [id number] cefdinir 300 MG capsule Recommended Follow-up: Roverto Rebollar DO [address] [facility] hospital [phone] Schedule an appointment as soon as possible for a visit in 2 week(s) Charlene Walker MD [address] [facility] [address] [facility] [phone] Schedule an appointment as soon as possible for a visit in 1 week(s) Complexity of Follow up: [] Moderate Complexity: follow up within 7-14 calendar days (57154) [x] Severe Complexity: follow up within 7 calendar days (42475) Follow up Testing, Pending results or Referrals at Transitional Care Visit: [] yes [x] no Instructions to MA: Please call patient on day after discharge (must document patient contacted within 2 business days of discharge). Follow up questions for MA: 1. Did you get medications filled and taking them as instructed from discharge? 2. Are you following your discharge instructions from your hospital stay? 3. Please confirm patient is scheduled for a follow up appointment within the above time frame. Signed: Josef Pereira DO Division of Hospitalist Medicine [facility] 01/06/2024, 5:10 PM documented in this encounter [facility] 01-06-2024 History of Present illness Narrative Patient seen and examined. Full note to follow. Images from the original note were not included. Hospitalist Progress Note 01/05/2024 Subjective: Admit Date: 12/31/2023 PCP: Charlene Walker MD Room#: [id number]/[id number] A Chief Complaint Patient presents with Vomiting Pt took her first dose of steroids & abx today around 0830 and about 1 hour after began vomiting. Reports she thought that may be due to her eating on an empty stomach so she took her noon dose with food and still developed nausea & vomiting. Reports she has been having intermittent vomiting and chills since. Pt vomiting upon triage BRIEF HOSPITAL COURSE: 83 y.o. F presented for submental dental abscess She was recently admitted 12/27-12/29 for submental space cellulitis with inflammatory phlegmon. She was treated with IV antibiotics, IV decadron and source control with Extraction of #19 and #20 by dentistry 12/28. Initially [place] better and sent home with PO prednisone and Augmentin, but could not tolerate PO meds d/t nausea/vomiting , continued pain and swelling in the abscess area and returned to ED Has been receiving IV Unasyn. Otolaryngology following, s/p surgical I&D on 01/01 with small drain placement, drain removed on 01/03, cleared for discharge. Interval History: She started throwing up yesterday when about to discharge her Patient is seen and examined, sitting on her bed without in any acute distress, still feels nauseous Labs reviewed WBC 9.4, normalized Case and plan discussed with patient and bedside nurse. All questions answered. Adult diet Regular 24HR INTAKE/OUTPUT: No intake or output data in the 24 hours ending 01/05/24 0858 Past Medical History: Past Medical History: Diagnosis Date Disease of thyroid gland Hypertension 01/01/2024 LABS: CBC: Recent Labs 01/04/245801/05/24 0643 WBC 10.9* 9.4 RBC 3.91 4.34 HGB 12.3 13.3 HCT 37.0 40.2 MCV 94.6 92.6 RDW 12.7 12.8 PLT 307 342 BMP: Recent Labs 01/04/245801/05/24 0643 NA 137 135 K 3.6 3.8 CL 109* 107 CO2 25 25 BUN 19* 13 CREATININE 0.96 0.81 GLUCOSE 82 97 CALCIUM 8.1* 8.4 ANIONGAP 4 4 LIVER PROFILE: Recent Labs 01/04/245801/05/24 0643 AST 40 31 ALT 62* 51* BILITOT 0.3 0.4 ALKPHOS 112 112 PROT 5.2* 5.7* PT/INR: No results for input(s): "PROTIME", "INR" in the last 72 hours. CARDIAC ENZYMES: No results for input(s): "TROPONINI" in the last 72 hours. Procalcitonin: No results found for: PROCAL COVID-19 PCR: No results for input(s): "COVID19" in the last 72 hours. Objective: Vitals: BP 153/68 (BP Location: Right arm, Patient Position: Lying) Pulse 50 Temp 36.2 C (97.1 F) (Temporal) Resp 16 Ht 5' 2" (1.575 m) Wt 185 lb (83.9 kg) SpO2 90% BMI 33.84 kg/m Pulse Ox: SpO2 Av.5 % Min: 90 % Max: 93 % Supplemental O2: O2 Flow Rate (L/min): 2 L/min Physical Exam Vitals and nursing note reviewed. Constitutional: General: She is not in acute distress. HENT: Head: Normocephalic and atraumatic. Mouth/Throat: Mouth: Mucous membranes are moist. Eyes: Extraocular Movements: Extraocular movements intact. Neck: Comments: Submental incision, covered with dressing Cardiovascular: Rate and Rhythm: Normal rate and regular rhythm. Pulmonary: Effort: Pulmonary effort is normal. No respiratory distress. Abdominal: General: Bowel sounds are normal. There is no distension. Tenderness: There is no abdominal tenderness. Musculoskeletal: General: No swelling or tenderness. Skin: General: Skin is warm and dry. Neurological: General: No focal deficit present. Mental Status: She is alert and oriented to person, place, and time. Psychiatric: Mood and Affect: Mood normal. Medications: Scheduled PRN amLODIPine, 10 mg, Oral, Daily [Held by provider] amoxicillin-clavulanate, 875 mg, Oral, 2 times per day ampicillin-sulbactam, 3,000 mg, IntraVENous, q6h aspirin, 81 mg, Oral, Daily cholecalciferol, 1,000 Units, Oral, Daily enoxaparin, 40 mg, SubCUTAneous, Daily levothyroxine, 112 mcg, Oral, qAM AC meclizine, 12.5 mg, Oral, Daily sodium chloride 0.9%, 10 mL, IntraVENous, 2 times per day PRN medications: hydrALAZINE, naloxone, ondansetron ODT OR ondansetron, oxyCODONE-acetaminophen, polyethylene glycol (PEG) 3350, sodium chloride, sodium chloride 0.9% Continuous Assessment Data: (CAT1) Reviewed 3 or more notes from different specialty or health system (each=1). (CAT1) Reviewed 3 or more labs/studies ordered by me not previously counted (each=1, panels count as 1). (CAT3) Mgmt of the patient was discussed with RN regarding pt's condition, Tx plan, diet D/w Tcc/sw regarding pt's Tx plan and DC plan -> plan for home when ready (LOW: 2x CAT1 or independent historian MOD: 3x CAT1 or 1x CAT3 EXTENSIVE: 3x CAT1 and 1x CAT3) Acute, acute on chronic, unstable/uncontrolled chronic problems/diagnoses: Submental abscess s/p INCISION AND DRAINAGE 01/01 Goals of care - Full code, POA - Nicordell Hamilton Vomitings Stable chronic problems affecting care, new non-acute diagnoses: Hypertension Hypothyroidism Plan As a result of the above findings & factors, the following mgmt was pursued: - continue IV unasyn -Labs reviewed WBC 9.4, normalized -S/p drain removal on 01/03 -Discussed with antibiotic stewardship team who advised Augmentin upon discharge, but she started throwing up before discharge, sent a message to antibiotic stewardship team if possible to change antibiotics - am labs, replace lytes prn - PT/OT/CM/SW - delirium precautions: increase activity and limit nighttime disturbances - DVT prophylaxis: enoxaparin and encourage ambulation Complexity: Acute illness or injury posing a threat to life or body function (HIGH). Risk: Prescription drug/IVF/colloid was initiated, discontinued, adjusted; or reviewed with decision to maintain current orders (MOD). Advance Directive: Full Code Anticipated Discharge - Date -likely today or tomorrow - Location - Home - Pending the following - clinical improvement and finalized cultures Total time spent (which include face to face and non face to face encounters) : 36 minutes Toxic drug monitoring/narrow therapeutic index drug monitoring : # Drug name : # Route administered : # Method of monitoring : Extended Emergency Contact Information Primary Emergency Contact: Piper Hamilton (POA) Mobile Relation: Louis Fernandez MD Division of Hospitalist Medicine Acute [facility] Patient seen for [place] drain removal. Infection improving with treatment after I&D. Plan is for DC home today. [place] drain was removed and site covered with gauze. Can follow up with ENT ion 2-3 weeks to ensure infection completely resolved. Images from the original note were not included. Hospitalist Progress Note 01/04/2024 Subjective: Admit Date: 12/31/2023 PCP: Charlene Walker MD Room#: W6-133/[id number] A Chief Complaint Patient presents with Vomiting Pt took her first dose of steroids & abx today around 0830 and about 1 hour after began vomiting. Reports she thought that may be due to her eating on an empty stomach so she took her noon dose with food and still developed nausea & vomiting. Reports she has been having intermittent vomiting and chills since. Pt vomiting upon triage BRIEF HOSPITAL COURSE: 83 y.o. F presented for submental dental abscess She was recently admitted 12/27-12/29 for submental space cellulitis with inflammatory phlegmon. She was treated with IV antibiotics, IV decadron and source control with Extraction of #19 and #20 by dentistry 12/28. Initially [place] better and sent home with PO prednisone and Augmentin, but could not tolerate PO meds d/t nausea/vomiting , continued pain and swelling in the abscess area and returned to ED Has been receiving IV Unasyn. Otolaryngology following, s/p surgical I&D on 01/01. Interval History: Patient is seen and examined, comfortably sitting on her bed, NAD, states has some soreness in her neck otherwise offers no new acute complaints Labs reviewed WBC 10.9, mildly elevated Discussed with ENT who will be seeing the patient today and plan to remove the drain Discussed with antibiotic stewardship team who advised Augmentin upon discharge Case and plan discussed with patient and bedside nurse. All questions answered. Adult diet Regular 24HR INTAKE/OUTPUT: Intake/Output Summary (Last 24 hours) at 01/04/2024 0728 Last data filed at 01/03/2024 1810 Gross per 24 hour Intake 940 ml Output 0 ml Net 940 ml Past Medical History: Past Medical History: Diagnosis Date Disease of thyroid gland Hypertension 01/01/2024 LABS: CBC: Recent Labs 01/04/24 0059 WBC 10.9* RBC 3.91 HGB 12.3 HCT 37.0 MCV 94.6 RDW 12.7 PLT 307 BMP: Recent Labs 01/04/24 0059 NA 137 K 3.6 CL 109* CO2 25 BUN 19* CREATININE 0.96 GLUCOSE 82 CALCIUM 8.1* ANIONGAP 4 LIVER PROFILE: Recent Labs 01/04/24 0059 AST 40 ALT 62* BILITOT 0.3 ALKPHOS 112 PROT 5.2* PT/INR: No results for input(s): "PROTIME", "INR" in the last 72 hours. CARDIAC ENZYMES: No results for input(s): "TROPONINI" in the last 72 hours. Procalcitonin: No results found for: PROCAL COVID-19 PCR: No results for input(s): "COVID19" in the last 72 hours. Objective: Vitals: BP (!) 168/67 (BP Location: Left arm, Patient Position: Sitting) Pulse (!) 47 Temp 36.3 C (97.3 F) (Temporal) Resp 20 Ht 5' 2" (1.575 m) Wt 185 lb (83.9 kg) SpO2 93% BMI 33.84 kg/m Pulse Ox: SpO2 Av % Min: 93 % Max: 95 % Supplemental O2: O2 Flow Rate (L/min): 2 L/min Physical Exam Vitals and nursing note reviewed. Constitutional: General: She is not in acute distress. HENT: Head: Normocephalic and atraumatic. Mouth/Throat: Mouth: Mucous membranes are moist. Eyes: Extraocular Movements: Extraocular movements intact. Neck: Comments: Submental abscess with incision and drain, covered with dressing Cardiovascular: Rate and Rhythm: Normal rate and regular rhythm. Pulmonary: Effort: Pulmonary effort is normal. No respiratory distress. Abdominal: General: Bowel sounds are normal. There is no distension. Tenderness: There is no abdominal tenderness. Musculoskeletal: General: No swelling or tenderness. Skin: General: Skin is warm and dry. Neurological: General: No focal deficit present. Mental Status: She is alert and oriented to person, place, and time. Psychiatric: Mood and Affect: Mood normal. Medications: Scheduled PRN amLODIPine, 5 mg, Oral, Daily ampicillin-sulbactam, 3,000 mg, IntraVENous, q6h aspirin, 81 mg, Oral, Daily cholecalciferol, 1,000 Units, Oral, Daily enoxaparin, 40 mg, SubCUTAneous, Daily levothyroxine, 112 mcg, Oral, qAM AC meclizine, 12.5 mg, Oral, Daily sodium chloride 0.9%, 10 mL, IntraVENous, 2 times per day PRN medications: naloxone, ondansetron ODT OR ondansetron, oxyCODONE-acetaminophen, polyethylene glycol (PEG) 3350, sodium chloride, sodium chloride 0.9% Continuous Assessment Data: (CAT1) Reviewed 3 or more notes from different specialty or health system (each=1). (CAT1) Reviewed 3 or more labs/studies ordered by me not previously counted (each=1, panels count as 1). (CAT3) Mgmt of the patient was discussed with RN regarding pt's condition, Tx plan, diet D/w Tcc/sw regarding pt's Tx plan and DC plan -> plan for home when ready (LOW: 2x CAT1 or independent historian MOD: 3x CAT1 or 1x CAT3 EXTENSIVE: 3x CAT1 and 1x CAT3) Acute, acute on chronic, unstable/uncontrolled chronic problems/diagnoses: Submental abscess s/p INCISION AND DRAINAGE 01/01 Goals of care - Full code, BENIA - Louis Hamilton Stable chronic problems affecting care, new non-acute diagnoses: Hypertension Hypothyroidism Plan As a result of the above findings & factors, the following mgmt was pursued: - continue IV unasyn pending OR cultures - Labs reviewed WBC 10.9, mildly elevated -Discussed with ENT who will be seeing the patient today and plan to remove the drain -Discussed with antibiotic stewardship team who advised Augmentin upon discharge - am labs, replace lytes prn - PT/OT/CM/SW - delirium precautions: increase activity and limit nighttime disturbances - DVT prophylaxis: enoxaparin and encourage ambulation Complexity: Acute illness or injury posing a threat to life or body function (HIGH). Risk: Prescription drug/IVF/colloid was initiated, discontinued, adjusted; or reviewed with decision to maintain current orders (MOD). Advance Directive: Full Code Anticipated Discharge - Date -likely today - Location - Home - Pending the following - clinical improvement and finalized cultures Total time spent (which include face to face and non face to face encounters) : 37.5 minutes Toxic drug monitoring/narrow therapeutic index drug monitoring : # Drug name : # Route administered : # Method of monitoring : Extended Emergency Contact Information Primary Emergency Contact: Piper Hamilton (POA) Mobile Relation: Louis Fernandez MD Division of Hospitalist Medicine [facility] Nutrition Assessment Type and Reason for Visit: Initial, Wound Nutrition Recommendations/Plan: Continue regneral diet as ordered Monitor PO Intake for need of ONS RD will monitor PO intake, weight, overall nutrition status and will follow weekly Malnutrition Assessment: Malnutrition Status: At risk for malnutrition (Comment) Context: Acute Illness Findings of the 6 clinical characteristics of malnutrition: Energy Intake: 50% or less of estimated energy requirements for 5 or more days (currently improved) Weight Loss: No significant weight loss Body Fat Loss: No significant body fat loss Muscle Mass Loss: No significant muscle mass loss Fluid Accumulation: No significant fluid accumulation Lubrication Equipment Servicer Strength: Not Performed Nutrition Assessment: Pt with documented PMH including HTN and thyroid disease, with recent admission 12/27-12/30/23 with submental space cellulitis with inflammatory phlegmon for which she was treated with IV antibiotics, IV decadron and source control with extraction of #19 and #20 by dentistry 12/28 newly presented on 12/30 on eday after discharge due to not begin able to tolerate PO meds d/t nausea/vomiting with continued pain and swelling in the abscess area. Otolaryngology consulted for surgical I&D which was performed on 01/01; cultures sent out. Pt reports intact appetite and PO intake currently, much improved since surgery yesterday, prior to then pt had nausea and was consuming mostly jello and pudding for ~1 week, at time unable to open her mouth very much. She currently denies any difficulty with chewing or swallowing. She reports UBW is ~185#, unsure of weight loss. RD obtained bedscale weight of 191.1# with bedding on bed- suggestive of stable weight. She does not have any physical signs of malnutrition. Pt does not use ONS, feels confident that she can now eat to meet her needs, does not feel she needs ONS. Pt has no questions/concerns for RD at this time. Estimated Daily Nutrient Needs: Energy Requirements Based On: Kcal/kg Weight Used for Energy Requirements: [place] (25-30 kcal/kg) Weight for Energy Calculation (kg): 50 kg Total Energy Requirements (kcals/day): 0370-4811 Weight Used for Protein Requirements: [place] (1.2-1.4 g/kg) Weight in Kg Used for Protein Requirements: 50 kg Estimated Total Protein (g/day): 60-70 Estimated Daily Total Fluid (ml/day): per MD Nutrition Related Findings: Nutrition History: Independent of feeding. Lives with: Alone Teeth: Missing teeth Room Service Room Service: Assist GI symptoms: None at this time. Allen Scale Score: 22 .Wound Type: Surgical Incision Net IO Since Admission: 2,180 mL [01/03/24 1221] Edema: none Labs and meds reviewed: amLODIPine, 5 mg, Oral, Daily ampicillin-sulbactam, 3,000 mg, IntraVENous, q6h aspirin, 81 mg, Oral, Daily cholecalciferol, 1,000 Units, Oral, Daily enoxaparin, 40 mg, SubCUTAneous, Daily levothyroxine, 112 mcg, Oral, qAM AC meclizine, 12.5 mg, Oral, Daily sodium chloride 0.9%, 10 mL, IntraVENous, 2 times per day BMP: Recent Labs 12/31/23 1838 01/01/24 0640 NA 141 137 K 3.4* 3.6 CL 106 108* CO2 26 27 BUN 30* 23* CREATININE 0.91 0.97 GLUCOSE 123* 83 CALCIUM 9.3 8.0* Current Nutrition Therapies: Adult diet Regular Current Oral Intake Average Meal Intake: (eating well now) Average Supplements Intake: None Ordered Anthropometric Measures: Height: 157.5 cm (5' 2") Current Body Weight: 86.7 kg (191 lb 1.6 oz) (bedscale 01/02) Admission Body Weight: 84.1 kg (185 lb 8 oz) (bedscale 12/28 (first admission)) Usual Body Weight: 83.9 kg (185 lb) (per pt) % Weight Change (Calculated): 3.3 [place] Body Weight (lbs) (Calculated): 110 lbs [place] Body Weight (Kg) (Calculated): 50 kg % [place] Body Weight (Calculated): 173.7 % BMI (kg/m2) (Calculated): 34.9 Wt Readings from Last 10 Encounters: 12/31/23 83.9 kg (185 lb) 12/29/23 84.1 kg (185 lb 8 oz) Nutrition Diagnosis: Increased nutrient needs related to increase demand for energy/nutrients as evidenced by wounds (incision under chin) Nutrition Interventions: Food and/or Nutrient Delivery: Continue Current Diet Nutrition Education/Counseling: Education not indicated Coordination of Nutrition Care: Continue to monitor while inpatient Goals: Goals: PO intake 75% or greater, by next RD assessment Nutrition Monitoring and Evaluation: Behavioral-Environmental Outcomes: None Identified Food/Nutrient Intake Outcomes: Food and Nutrient Intake Physical Signs/Symptoms Outcomes: Biochemical Data, Chewing or Swallowing, GI Status, Skin, Weight Discharge Planning: No discharge needs at this time Arabella Jackson RD, LD Contact: *[phone] or via IX[employer] chat Images from the original note were not included. Hospitalist Progress Note 01/03/2024 Subjective: Admit Date: 12/31/2023 PCP: Charlene Walker MD [facility] A Chief Complaint Patient presents with Vomiting Pt took her first dose of steroids & abx today around 0830 and about 1 hour after began vomiting. Reports she thought that may be due to her eating on an empty stomach so she took her noon dose with food and still developed nausea & vomiting. Reports she has been having intermittent vomiting and chills since. Pt vomiting upon triage BRIEF HOSPITAL COURSE: 83 y.o. F presented for submental dental abscess She was recently admitted 12/27-12/29 for submental space cellulitis with inflammatory phlegmon. She was treated with IV antibiotics, IV decadron and source control with Extraction of #19 and #20 by dentistry 12/28. Initially [place] better and sent home with PO prednisone and Augmentin, but could not tolerate PO meds d/t nausea/vomiting , continued pain and swelling in the abscess area and returned to ED Has been receiving IV Unasyn. Otolaryngology following, s/p surgical I&D on 01/01. Interval History: Patient is seen and examined, resting on her bed comfortably, not in acute distress, states dressing further surgical wound no acute changes today Labs reviewed WBC 7.6, normal, Gram stain shows gram-positive cocci and gram-negative bacilli Case and plan discussed with patient and bedside nurse. All questions answered. Adult diet Regular 24HR INTAKE/OUTPUT: Intake/Output Summary (Last 24 hours) at 01/03/2024 0759 Last data filed at 01/02/2024 1800 Gross per 24 hour Intake 1120 ml Output -- Net 1120 ml Past Medical History: Past Medical History: Diagnosis Date Disease of thyroid gland Hypertension 01/01/2024 LABS: CBC: Recent Labs 12/31/238 01/01/24 0640 WBC 11.3* 7.6 RBC 5.02 4.07 HGB 15.4 12.6 HCT 46.5 38.4 MCV 92.6 94.3 RDW 12.5 12.8 PLT 405 300 BMP: Recent Labs 12/31/23 1838 01/01/24 0640 NA 141 137 K 3.4* 3.6 CL 106 108* CO2 26 27 BUN 30* 23* CREATININE 0.91 0.97 GLUCOSE 123* 83 CALCIUM 9.3 8.0* ANIONGAP 9 2* LIVER PROFILE:No results for input(s): "AST", "ALT", "BILITOT", "ALKPHOS", "PROT" in the last 72 hours. No lab exists for component: LABALBU PT/INR: No results for input(s): "PROTIME", "INR" in the last 72 hours. CARDIAC ENZYMES: No results for input(s): "TROPONINI" in the last 72 hours. Procalcitonin: No results found for: PROCAL COVID-19 PCR: No results for input(s): "COVID19" in the last 72 hours. Objective: Vitals: BP 149/67 (BP Location: Right arm, Patient Position: Sitting) Pulse (!) 44 Temp 36 C (96.8 F) (Temporal) Resp 18 Ht 5' 2" (1.575 m) Wt 185 lb (83.9 kg) SpO2 95% BMI 33.84 kg/m Pulse Ox: SpO2 Av.5 % Min: 92 % Max: 99 % Supplemental O2: O2 Flow Rate (L/min): 2 L/min Physical Exam Vitals and nursing note reviewed. Constitutional: General: She is not in acute distress. HENT: Head: Normocephalic and atraumatic. Mouth/Throat: Mouth: Mucous membranes are moist. Eyes: Extraocular Movements: Extraocular movements intact. Neck: Comments: Submental abscess with incision and drain, covered with dressing Cardiovascular: Rate and Rhythm: Normal rate and regular rhythm. Pulmonary: Effort: Pulmonary effort is normal. No respiratory distress. Abdominal: General: Bowel sounds are normal. There is no distension. Tenderness: There is no abdominal tenderness. Musculoskeletal: General: No swelling or tenderness. Skin: General: Skin is warm and dry. Neurological: General: No focal deficit present. Mental Status: She is alert and oriented to person, place, and time. Psychiatric: Mood and Affect: Mood normal. Medications: Scheduled PRN amLODIPine, 5 mg, Oral, Daily ampicillin-sulbactam, 3,000 mg, IntraVENous, q6h aspirin, 81 mg, Oral, Daily cholecalciferol, 1,000 Units, Oral, Daily enoxaparin, 40 mg, SubCUTAneous, Daily levothyroxine, 112 mcg, Oral, qAM AC meclizine, 12.5 mg, Oral, Daily sodium chloride 0.9%, 10 mL, IntraVENous, 2 times per day PRN medications: naloxone, ondansetron ODT OR ondansetron, oxyCODONE-acetaminophen, polyethylene glycol (PEG) 3350, sodium chloride, sodium chloride 0.9% Continuous Assessment Data: (CAT1) Reviewed 3 or more notes from different specialty or health system (each=1). (CAT1) Reviewed 3 or more labs/studies ordered by another provider not previously counted (each=1, panels count as 1). (CAT3) Mgmt of the patient was discussed with RN regarding pt's condition, Tx plan, diet D/w Tcc/sw regarding pt's Tx plan and DC plan -> plan for home when ready (LOW: 2x CAT1 or independent historian MOD: 3x CAT1 or 1x CAT3 EXTENSIVE: 3x CAT1 and 1x CAT3) Acute, acute on chronic, unstable/uncontrolled chronic problems/diagnoses: Submental abscess s/p INCISION AND DRAINAGE 01/01 Goals of care - Full code, POA - Niece Piper Hamilton Stable chronic problems affecting care, new non-acute diagnoses: Hypertension Hypothyroidism Plan As a result of the above findings & factors, the following mgmt was pursued: - continue IV unasyn pending OR cultures - Labs reviewed WBC 7.6, normal, Gram stain shows gram-positive cocci and gram-negative bacilli - am labs, replace lytes prn - PT/OT/CM/SW - delirium precautions: increase activity and limit nighttime disturbances - DVT prophylaxis: enoxaparin and encourage ambulation Complexity: Acute illness or injury posing a threat to life or body function (HIGH). Risk: Prescription drug/IVF/colloid was initiated, discontinued, adjusted; or reviewed with decision to maintain current orders (MOD). Advance Directive: Full Code Anticipated Discharge - Date -likely tomorrow - Location - Home - Pending the following - clinical improvement and finalized cultures Total time spent (which include face to face and non face to face encounters) : 40.5 minutes Toxic drug monitoring/narrow therapeutic index drug monitoring : # Drug name : # Route administered : # Method of monitoring : Extended Emergency Contact Information Primary Emergency Contact: Piper Hamilton (POA) Mobile Relation: Louis Fernandez MD Division of Hospitalist Medicine [facility] Louis Saldaña called for update, update given but she still wants to speak with the physician.. pt would like for physician to call her louis Saldaña/REYES to give an update, , Dr Hayes notified via secure chat.. .Nutrition rescreen completed. Chart reviewed. Patient to be monitored and followed by the diet natural gas technician. VICK Persaud Images from the original note were not included. Hospitalist Progress Note 01/02/2024 Subjective: Admit Date: 12/31/2023 PCP: Charlene Walker MD Room#: OR/NONE Chief Complaint Patient presents with Vomiting Pt took her first dose of steroids & abx today around 0830 and about 1 hour after began vomiting. Reports she thought that may be due to her eating on an empty stomach so she took her noon dose with food and still developed nausea & vomiting. Reports she has been having intermittent vomiting and chills since. Pt vomiting upon triage BRIEF HOSPITAL COURSE: 83 y.o. F presented for submental dental abscess She was recently admitted 12/27-12/29 for submental space cellulitis with inflammatory phlegmon. She was treated with IV antibiotics, IV decadron and source control with Extraction of #19 and #20 by dentistry 12/28. Initially [place] better and sent home with PO prednisone and Augmentin, but could not tolerate PO meds d/t nausea/vomiting , continued pain and swelling in the abscess area and returned to ED Has been receiving IV Unasyn. Otolaryngology consulted for surgical I&D . Interval History: This morning pt underwent INCISION AND DRAINAGE . Culture sent out Pt is seen in her room upon return from OR Reports feeling a little better, would like to try to eat Case and plan discussed with patient and bedside nurse. All questions answered. NPO diet with enteral medications 24HR INTAKE/OUTPUT: No intake or output data in the 24 hours ending 01/02/24 0918 Past Medical History: Past Medical History: Diagnosis Date Disease of thyroid gland Hypertension 01/01/2024 LABS: CBC: Recent Labs 12/31/23 1838 01/01/24 0640 WBC 11.3* 7.6 RBC 5.02 4.07 HGB 15.4 12.6 HCT 46.5 38.4 MCV 92.6 94.3 RDW 12.5 12.8 PLT 405 300 BMP: Recent Labs 12/31/23 1838 01/01/24 0640 NA 141 137 K 3.4* 3.6 CL 106 108* CO2 26 27 BUN 30* 23* CREATININE 0.91 0.97 GLUCOSE 123* 83 CALCIUM 9.3 8.0* ANIONGAP 9 2* LIVER PROFILE:No results for input(s): "AST", "ALT", "BILITOT", "ALKPHOS", "PROT" in the last 72 hours. No lab exists for component: LABALBU PT/INR: No results for input(s): "PROTIME", "INR" in the last 72 hours. CARDIAC ENZYMES: No results for input(s): "TROPONINI" in the last 72 hours. Procalcitonin: No results found for: PROCAL COVID-19 PCR: No results for input(s): "COVID19" in the last 72 hours. Objective: Vitals: BP 121/53 Pulse (!) 41 Temp 36.1 C (97 F) (Temporal) Resp 14 Ht 5' 2" (1.575 m) Wt 185 lb (83.9 kg) SpO2 93% BMI 33.84 kg/m Pulse Ox: SpO2 Av.7 % Min: 92 % Max: 99 % Supplemental O2: O2 Flow Rate (L/min): 2 L/min Physical Exam Vitals and nursing note reviewed. Constitutional: General: She is not in acute distress. HENT: Head: Normocephalic and atraumatic. Mouth/Throat: Mouth: Mucous membranes are moist. Eyes: Extraocular Movements: Extraocular movements intact. Neck: Comments: Submental abscess with incision and drain, covered with dressing Cardiovascular: Rate and Rhythm: Normal rate and regular rhythm. Pulmonary: Effort: Pulmonary effort is normal. No respiratory distress. Abdominal: General: Bowel sounds are normal. There is no distension. Tenderness: There is no abdominal tenderness. Musculoskeletal: General: No swelling or tenderness. Skin: General: Skin is warm and dry. Neurological: General: No focal deficit present. Mental Status: She is alert and oriented to person, place, and time. Psychiatric: Mood and Affect: Mood normal. Medications: Scheduled PRN [MAR Hold] amLODIPine, 5 mg, Oral, Daily [NOV Hold] ampicillin-sulbactam, 3,000 mg, IntraVENous, q6h [Held by provider] aspirin, 81 mg, Oral, Daily [NOV Hold] cholecalciferol, 1,000 Units, Oral, Daily [Held by provider] enoxaparin, 40 mg, SubCUTAneous, Daily [NOV Hold] levothyroxine, 112 mcg, Oral, qAM AC [NOV Hold] meclizine, 12.5 mg, Oral, Daily [NOV Hold] sodium chloride 0.9%, 10 mL, IntraVENous, 2 times per day sodium chloride 0.9%, 10 mL, IntraVENous, 2 times per day PRN medications: diphenhydrAMINE, labetalol OR hydrALAZINE, HYDROmorphone, HYDROmorphone, LORazepam, [MAR Hold] naloxone, [MAR Hold] ondansetron ODT OR [MAR Hold] ondansetron, ondansetron, oxyCODONE OR oxyCODONE, [MAR Hold] oxyCODONE-acetaminophen, [MAR Hold] polyethylene glycol (PEG) 3350, sodium chloride, [MAR Hold] sodium chloride, sodium chloride, [MAR Hold] sodium chloride 0.9%, sodium chloride 0.9% Continuous lactated Ringer's, 125 mL/hr, Last Rate: 75 mL/hr (01/02/24 0804) Assessment Data: (CAT1) Reviewed 3 or more notes from different specialty or health system (each=1). (CAT1) Reviewed 3 or more labs/studies ordered by another provider not previously counted (each=1, panels count as 1). (CAT3) Mgmt of the patient was discussed with RN regarding pt's condition, Tx plan, diet D/w Tcc/sw regarding pt's Tx plan and DC plan -> plan for home when ready D/w ENT regarding antibiotics and DVT ppx (LOW: 2x CAT1 or independent historian MOD: 3x CAT1 or 1x CAT3 EXTENSIVE: 3x CAT1 and 1x CAT3) Acute, acute on chronic, unstable/uncontrolled chronic problems/diagnoses: Submental abscess s/p INCISION AND DRAINAGE 01/01 Goals of care - Full code, POA - Louis Hamilton Stable chronic problems affecting care, new non-acute diagnoses: Hypertension Hypothyroidism Plan As a result of the above findings & factors, the following mgmt was pursued: - continue IV unasyn pending OR cultures - discussed with REYES Hamilton regarding pt's condition and Tx plan - am labs, replace lytes prn - PT/OT/CM/SW - delirium precautions: increase activity and limit nighttime disturbances - DVT prophylaxis: enoxaparin and encourage ambulation Complexity: Acute illness or injury posing a threat to life or body function (HIGH). Risk: Prescription drug/IVF/colloid was initiated, discontinued, adjusted; or reviewed with decision to maintain current orders (MOD). Advance Directive: Full Code Anticipated Discharge - Date - TBD - Location - Home - Pending the following - clinical improvement and finalized cultures Total time spent (which include face to face and non face to face encounters) : minutes Toxic drug monitoring/narrow therapeutic index drug monitoring : # Drug name : # Route administered : # Method of monitoring : Extended Emergency Contact Information Primary Emergency Contact: Piper Hamilton (POA) Mobile Relation: Nicordell Hayes DO Division of Hospitalist Medicine [facility] Images from the original note were not included. Hospitalist Progress Note 01/01/2024 Subjective: Admit Date: 12/31/2023 PCP: Charlene Walker MD [facility] BRIEF HOSPITAL COURSE: 83 y.o. F presented for submental dental abscess. Extraction of #19 and #20 by dentistry 12/28. Has been receiving IV Unasyn. Otolaryngology consulted for surgical I&D Interval History: Seen at bedside. Noticeable swelling with erythema submental region. Denies fever, chills. Spoke to louis on phone and updated plan for I&D today. Case and plan discussed with patient and bedside nurse. All questions answered. NPO diet with enteral medications 24HR INTAKE/OUTPUT: Intake/Output Summary (Last 24 hours) at 01/01/2024 1527 Last data filed at 12/31/2023 2019 Gross per 24 hour Intake 600 ml Output -- Net 600 ml Past Medical History: Past Medical History: Diagnosis Date Disease of thyroid gland Hypertension 01/01/2024 LABS: CBC: Recent Labs 12/31/23 1838 01/01/24 0640 WBC 11.3* 7.6 RBC 5.02 4.07 HGB 15.4 12.6 HCT 46.5 38.4 MCV 92.6 94.3 RDW 12.5 12.8 PLT 405 300 BMP: Recent Labs 12/31/23 1838 01/01/24 0640 NA 141 137 K 3.4* 3.6 CL 106 108* CO2 26 27 BUN 30* 23* CREATININE 0.91 0.97 GLUCOSE 123* 83 CALCIUM 9.3 8.0* ANIONGAP 9 2* LIVER PROFILE:No results for input(s): "AST", "ALT", "BILITOT", "ALKPHOS", "PROT" in the last 72 hours. No lab exists for component: LABALBU PT/INR: No results for input(s): "PROTIME", "INR" in the last 72 hours. CARDIAC ENZYMES: No results for input(s): "TROPONINI" in the last 72 hours. Procalcitonin: No results found for: PROCAL COVID-19 PCR: No results for input(s): "COVID19" in the last 72 hours. Objective: Vitals: BP 135/59 (BP Location: Right arm, Patient Position: Lying) Pulse 57 Temp 36.9 C (98.5 F) (Temporal) Resp 18 Ht 5' 2" (1.575 m) Wt 185 lb (83.9 kg) SpO2 92% BMI 33.84 kg/m Pulse Ox: SpO2 Av.6 % Min: 92 % Max: 98 % Supplemental O2: Physical Exam HENT: Head: Normocephalic. Comments: Erythema, swelling submental Nose: Nose normal. Mouth/Throat: Mouth: Mucous membranes are moist. Eyes: Extraocular Movements: Extraocular movements intact. Conjunctiva/sclera: Conjunctivae normal. Cardiovascular: Rate and Rhythm: Normal rate and regular rhythm. Pulmonary: Effort: Pulmonary effort is normal. Breath sounds: Normal breath sounds. Abdominal: Palpations: Abdomen is soft. Musculoskeletal: General: Normal range of motion. Cervical back: Normal range of motion. Skin: General: Skin is warm. Neurological: General: No focal deficit present. Mental Status: She is alert and oriented to person, place, and time. Psychiatric: Mood and Affect: Mood normal. Behavior: Behavior normal. Medications: Scheduled PRN amLODIPine, 5 mg, Oral, Daily ampicillin-sulbactam, 3,000 mg, IntraVENous, q6h [Held by provider] aspirin, 81 mg, Oral, Daily cholecalciferol, 1,000 Units, Oral, Daily enoxaparin, 40 mg, SubCUTAneous, Daily levothyroxine, 112 mcg, Oral, qAM AC meclizine, 12.5 mg, Oral, Daily sodium chloride 0.9%, 10 mL, IntraVENous, 2 times per day PRN medications: naloxone, ondansetron ODT OR ondansetron, oxyCODONE-acetaminophen, polyethylene glycol (PEG) 3350, sodium chloride, sodium chloride 0.9% Continuous Assessment Data: (CAT1) Reviewed 2 notes from different specialty or health system (each=1). (LOW: 2x CAT1 or independent historian MOD: 3x CAT1 or 1x CAT3 EXTENSIVE: 3x CAT1 and 1x CAT3) Acute, acute on chronic, unstable/uncontrolled chronic problems/diagnoses: Submental abscess Stable chronic problems affecting care, new non-acute diagnoses: Hypertension Hypothyroidism Plan As a result of the above findings & factors, the following mgmt was pursued: - I&D today - continue Unasyn - NPO - hold lovenox- did receive am dose - am labs, replace lytes prn - PT/OT/CM/SW - delirium precautions: increase activity - DVT prophylaxis: hold lovenox for I&D Advance Directive: Full Code Anticipated Discharge - Date - TBD - Location - TBD - Pending the following - I&D Total time spent (which include face to face and non face to face encounters) : 38 minutes Extended Emergency Contact Information Primary Emergency Contact: Alfonso KAMARAJerChristinePiper Mobile Relation: Louis Pike DO Division of Hospitalist Medicine [facility] Images from the original note were not included. [facility] Otolaryngology Head & Neck Surgery [address] [facility] [address] Dept: [phone] Dept Loc: [phone] ASSESSMENT Submental dental abscess PLAN -Submental abscess not improving with medical therapy. -Remain NPO -Plan for OR today for surgical I&D with Dr. Rebollar. Time to be determined. -Consent reviewed and signed with the patient. ECTIVE: Patient seen for reevaluation of submental abscess that is not improving with medical treatment including IV Unasyn. She also had dental source addressed with left molar extraction with dentistry teeth # 19 and 20. She continues to have pain and swelling. OBJECTIVE Physical 12/31/2023 5:19 PM 12/31/2023 5:23 PM 12/31/2023 5:29 PM 12/31/2023 7:55 PM 12/31/2023 10:42 PM 12/31/2023 11:17 PM 01/01/2024 7:23 AM Vitals Systolic 131 157 151 134 135 Diastolic 79 77 79 101 59 Heart Rate 58 64 73 68 57 Temp 36.4 C (97.5 F) 36.5 C (97.7 F) 36.3 C (97.4 F) 36.4 C (97.5 F) 36.9 C (98.5 F) Resp 18 18 15 20 18 SpO2 95 % 94 % 98 % 94 % 92 % Height (in) 5' 2" (1.575 m) 5' 2" (1.575 m) Weight (lb) 185 185 BMI 33.84 kg/m2 33.84 kg/m2 BSA (m2) 1.92 m2 1.92 m2 GENERAL: awake, alert, cooperative, no apparent distress, and appears stated age HEAD: normocepalic, atraumatic EYES: Lids and lashes normal, pupils equal, round and reactive to light, extra ocular muscles intact, sclera clear, conjunctiva normal EARS: no external deformity, external auditory canal clear bilaterally, tympanic membrane visualized bilaterally, no tympanosclerosis, no evidence of perforation, there is no evidence of fluid in the middle ear NOSE: no external deformity, septum midline, no lesions, no drainage, no inferior turbinate hypertrophy, no masses or lesions MOUTH: normal mucosa, no lesions, normal buccal mucosa. Poor dentition. Post dental extraction to left lower posterior molars. THROAT: oral cavity, oropharynx free of lesion, oral tongue, base of tongue without lesion, good salivary flow from Edel's and Warthin's ducts bilaterally, oral/buccal/gingival mucosa free of lesion, tonsils +, no erythema or exudates, retromolar trigone free of lesion. NECK: Submental swelling, erythema and induration LUNGS: no increased work of breathing NEUROLOGIC: cranial nerves II-XII are grossly intact, facial nerve 1/6 bilaterally SKIN: no bruising or bleeding and normal skin color, texture, turgor PSYCHIATRIC: Normal Mood, Oriented, cooperative, normal attention Data Latest Reference Range & Units 12/31/23 18:37 12/31/23 18:38 12/31/23 19:40 01/01/24 06:40 SODIUM 135 - 145 mmol/L 141 137 POTASSIUM 3.5 - 5.1 mmol/L 3.4 (L) 3.6 CHLORIDE 98 - 107 mmol/L 106 108 (H) Carbon Dioxide (CO2) 22 - 30 mmol/L 26 27 ANION GAP 3 - 13 mmol/L 9 2 (L) Urea Nitrogen (BUN) 7 - 17 mg/dL 30 (H) 23 (H) Creatinine 0.52 - 1.04 mg/dL 0.91 0.97 eGFR >60.0 mL/min/1.73m*2 63.5 58.8 (L) GLUCOSE 70 - 100 mg/dL 123 (H) 83 CALCIUM 8.4 - 10.4 mg/dL 9.3 8.0 (L) Auto WBC 3.6 - 10.7 10*3/uL 11.3 (H) 7.6 RBC 3.80 - 5.20 10*6/uL 5.02 4.07 HEMOGLOBIN 11.7 - 16.0 g/dL 15.4 12.6 HEMATOCRIT 35.0 - 47.0 % 46.5 38.4 MCV 77.0 - 99.0 fL 92.6 94.3 MCH 26.0 - 34.0 pg 30.7 31.0 MCHC 30.5 - 36.0 % 33.1 32.8 RDW 11.5 - 15.0 % 12.5 12.8 Platelets 140 - 440 10*3/uL 405 300 Mean Platelet Volume (MPV) 9.0 - 12.7 fL 9.7 9.2 Neutrophils Relative 38.0 - 82.0 % 86.5 (H) 65.8 Lymphocytes Relative 15.0 - 45.0 % 6.4 (L) 20.9 Monocytes Relative 5.0 - 13.0 % 5.0 10.7 Eosinophils Relative 0.0 - 6.0 % 0.8 1.2 Basophils Relative 0.0 - 2.0 % 0.4 0.3 ABSOLUTE LYMPHOCYTES - [place] 1.0 - 4.3 10*3/uL 0.7 (L) 1.6 Monocytes Absolute 0.0 - 0.9 10*3/uL 0.6 0.8 Eosinophils Absolute 0.0 - 0.5 10*3/uL 0.1 0.1 Basophils Absolute 0.0 - 0.2 10*3/uL 0.1 0.0 nRBC 0.0 - 2.0 /[address] SOFT TISSUE NECK W IV CONTRAST Rpt ECG 12-LEAD Rpt Heart Rate bpm 63 Immature Grans Absolute <0.1 10*3/uL 0.1 (H) 0.1 (H) Immature Grans % 0.0 - 2.0 % 0.9 1.1 Absolute Neutrophils 1.8 - 7.5 10*3/uL 9.8 (H) 5.0 P [place] degrees -17 TX Interval ms 127 QRS [place] degrees 6 QRSD Interval ms 99 QTC Interval ms 480 QT Interval ms 468 T Wave [place] degrees 8 (L): Data is abnormally low (H): Data is abnormally high Rpt: View report in Results Review for more information Narrative & Impression Patient Name: DIANA KOHLI : 1940 Exam Date/Time: 12/31/2023 19:43 Procedure: CT SOFT TISSUE NECK W IV CONTRAST Ordering Provider: GILMORE VISHNU Reason For Exam: Neck mass, nonpulsatile CT OF THE NECK SOFT TISSUES WITH IV CONTRAST CLINICAL INDICATION: Neck mass, nonpulsatile TECHNIQUE: CT of the neck soft tissues with IV contrast. Multiplanar reformations. Dose reduction was employed with automated exposure control. COMPARISON: 12/28/2023 FINDINGS: Previously seen fluid involving the floor the mouth and submental space again noted, collection appears slightly better defined, and a little larger currently. For instance today's maximum size 4.5 cm in transverse dimension by 3.7 cm in AP dimension. Previously was about 3.6 cm in transverse dimension and 3.7 cm in AP dimension. Left lower tooth number 20 has been extracted since the previous study. No significant airway compromise seen. Examination otherwise unchanged. IMPRESSION: 1. Status post extraction of left lower tooth number 20, previously seen fluid collection a little larger and better defined, may represent an abscess. Report Dictated on Electronically Signed By: Barnden Linares MD Electronically Signed Date/Time: 12/31/2023 7:56 PM EDT documented in this encounter [facility] 01-05-2024 Note Formatting of this n ote might be different from the original. Chart reviewed. Patient discharge was cancelled yesterday 2/2 N/V with PO abx. Per , hopeful discharge today if able to tolerate alternate med. Current discharge plan is home with [facility]. [place] aware and following. [facility] 01-05-2024 Note Formatting of this n ote might be different from the original. Chart reviewed. Patient discharge was cancelled yesterday 2/2 N/V with PO abx. Per , hopeful discharge today if able to tolerate alternate med. Current discharge plan is home with [facility]. [place] aware and following. [facility] 01-05-2024 Miscellaneous Notes Chart reviewed. Patient discharge was cancelled yesterday 2/2 N/V with PO abx. Per , hopeful discharge today if able to tolerate alternate med. Current discharge plan is home with [facility]. [place] aware and following. Patient Choice Patient Name: DIANA KOHLI Date of : 1940 All Providers Sent Referral Name: [facility] Phone: [phone] Address: [address] [place] [id number] Discharge order noted in epic. Spoke to patient at bedside. Patient agrees to C for RN follow up. ALBERT liaisonKeturah, notified on discharge today. Patient stated that she will have a ride home. Start PACC Note Home Health Referral Educated patient and niece on Home Care and services available. Patient offered choice of available HHC and agreeable to SN services with [facility] - Home Care. Care Types: None Isolation Precautions: No active isolations Social Determinates of Health: Tobacco Use: High Risk (01/02/2024) Patient History Smoking Tobacco Use: Every Day Smokeless Tobacco Use: Never Passive Exposure: Not on file Social History Substance and Sexual Activity Alcohol Use Not Currently Social History Substance and Sexual Activity Drug Use Not Currently Does the patient have any financial resource strain? No Does the patient have any food insecurities? No Does the patient have any housing instabilities? No If any of the above is noted as yes - consider a LEAD [employer]XIDE MILL TENDER evaluation once the patient returns home. START PATIENT REGISTRATION INFORMATION Order Information Order Signing Physician: Mark Fernandez MD Service Ordered RN ?: Yes Service Ordered PT ?: No Service Ordered OT ?: No Service Ordered ST ?: No Service Ordered LEAD OXIDE MILL TENDER?:No Service Ordered SERVICE RESTORER EMERGENCY?: No Following Physician: Charlene Walker MD Following Physician Overseeing Physician: Charlene Walker MD (Required for Residents only) Agreeable to Follow? Yes Date/Time of Call 01/04/24 1:07 PM, Spoke with: left message with office staff Care Coordination Same Day SOC?: No Primary Care Physician: Charlene Walker MD Primary Care Physician Primary Care Physician Address: [address] [place] [address] / [place] [address] Visit Instructions: N/A Service Discharge Location Type: Home with Home Health Care Service Facility Name: N/A Service Floor Facility: N/A Service Room No: N/A Demographics Patient Last Name: Seun Patient First Name: Diana Language/Communication Barrier: no Service Address: [address] [place] [address] City: [facility] ST: [place] Service ZIP: [address] Service (home) Other phone numbers: [phone] Emergency Contact: Extended Emergency Contact Information Primary Emergency Contact: Piper Hamilton (POA) Mobile Relation: Niece Admission Information Admit Date: 12/31/2023 Patient status at discharge: Inpatient Admitting Diagnosis: Submental abscess [L02.01] Caregiver Information Caregiver First Name: sania Caregiver Last Name: sania Caregiver Relationship to Patient na Caregiver Phone Number: na Caregiver Notes: N/A [employer] List No END PATIENT REGISTRATION INFORMATION Pt Home Health goal go home COVID Status 1. Do you have any upper respiratory symptoms (cough, SOB, Fever)? No 2. Have you been exposed to anyone with COVID-19 Virus? No Answer only if pending or positive for COVID-19? 1. Agreeable to wear PPE at each visit? No 2. Is the hospital supplying them with PPE upon Discharge? No Start PACC Summary General Report/ Additional Comments Return home with SN Discharge Date: pending Referral Source-PACC: (Hospital/Unit): [facility] / [id number]/[id number] A End PACC Note Chart reviewed. Patient s/p I&D with ENT yesterday for submental abscess with drain placed. Cultures sent. Current discharge plan is home no needs, anticipate in 1-2 days. Problem: Pain - Adult Goal: Verbalizes/displays adequate comfort level or baseline comfort level Outcome: Progressing Problem: Discharge Planning Goal: Discharge to home or other facility with appropriate resources Outcome: Progressing Louis CHAMBERS updated by telephone Brief Postoperative Note Diana Kohli Date of : 1940 [id number] Pre-operative Diagnosis: Submental abscess Post-operative Diagnosis: Same Procedure: Incision and drainage submental abscess external approach Description of procedure: Patient was taken to the operating room suite induction of general anesthetic was performed via orotracheal intubation. She was prepped and draped in usual sterile fashion. Horizontal incision was then planned along the submental area at the apex of the abscess. Immediately purulent drainage was encountered this was cultured. There was a significant amount of purulent drainage approximately 50 cc was encountered and drained. Copious irrigation was performed with sterile normal saline. Quarter inch Brittny drain was placed in the pocket and sewn into place with 4-0 Ethilon. Dressing was placed patient was extubated and transferred to PACU in satisfactory postoperative condition having tolerated the procedure well Anesthesia: General Surgeons/Assistants: Smooth Estimated Blood Loss: Minimal Complications: none Specimens: Culture and sensitivity of abscess pocket Roverto Rebollar DO Date: 12/31/2023 - 01/02/2024 Location: [facility] OR Name: Diana Kohli, : 1940, Diagnosis Pre-op Diagnosis * Submental abscess [L02.01] Post-op Diagnosis * Submental abscess [L02.01] Procedures INCISION AND DRAINAGE DEEP ABCESS OR HEMATOMA SOFT TISSUE NECK OR THORAX 89592 - TX I&D DEEP ABSC/HMTMA SOFT TISSUE NECK/THORAX Surgeons * Roverto Rebollar - Primary Procedure Summary Anesthesia: General ASA: II Estimated Blood Loss: Minimal Drains: * None in log * Specimens ID Source Type Tests Collected By Collected At Frozen? Priority Lab ID A Seth Body Fluid AEROBIC AND ANAEROBIC CULTURE WITH STAIN Roverto Rebollar DO 01/02/24 0744 [id number], [id number] Description: submental abscess Staff: Habilitation Specialist: Shelby Fuentes RN Scrub Person: Wes Davis Findings: Large submental abscess pocket opened cultured drained and irrigated Complications: None; patient tolerated the procedure well. Specimens Collected: Order Name Source Comment Collection Info Order Time AEROBIC AND ANAEROBIC CULTURE WITH STAIN Chin Collected By: Roverto Rebollar DO 01/02/2024 7:48 AM Wound Class: Class IV: Dirty Blood Products: None Prophylactic Antibiotics: Pre-operative antibiotics were not given because the patient is on continuous antibiotics for documented preoperative infection. Care Managment Initial Assessment Date: 01/01/2024 Patient Name: Diana Kohli : 1940 Patient Information Source of Information: Patient Cognition/Language: WFL - Within Functional Limits Permission given to speak with patient telephone claims representative/caregiver as indicated: Yes Confirmation of Payer with patient/family: Yes Payer Name: The health plan medicare [place]: No Confirmation of Primary Care Physician: Confirmed PCP Name: Charlene Walker Seen in last 2 years?: Yes Primary Caregiver: Self If assistance needed, confirmed caregiver ready, willing and able to care for patient at discharge: No Confirmed with: Living Arrangements Current Residence: House Number of Floors 1 Number of Entry Steps: 3 Bed/Bath Levels: Both first floor Lives with: Alone Support Systems: Family members Activities of Daily Living Ambulation: Independent Bathing/Dressing: Independent Elimination/Continence/Toileting: Independent Feeding: Independent Who Assists with Activities of Daily Living: Instrumental Activities of Daily Living Prescription Coverage: Yes Pharmacy Used: [facility] [place] Medication Management: Independent Transportation/Shopping: Independent Transportation Mode: Car Needs Assistance with Transportation at Discharge: No Meal Preparation: Independent Laundry/Cleaning: Independent Finances/Bill Paying: Independent Communication: Independent Types of Care Services/Equipment Utilized Durable Medical Equipment: Walker, Cane (not using walker, cane when outdoors) Patient's Goal/Discharge Plan Patient expects to be discharged to: home, no current needs Discharge Planning Actions: Continue to follow, No needs identified Patient's Choice Rights and [employer] and Collaborative Relationships Disclosed as Indicated for Post-Acute Care: NA Interdisciplinary Team Engagement: Home Health Care Social Work Referral for: Additional Information: Introduced self and role to patient via bedside. Patient re-admitted (discharge 12/29) for submental swelling/cellulitis after failing home antibiotics. Patient on iv abx. ENT consulted. Keturah Landa, tasked to follow for possible home infusion at discharge. Anticipate discharge in 2-3 days pending medical stability. Patient stated she would have a ride home at discharge. TCC to continue to follow. Dena Stover RN [employer] following case for Discharge Needs. documented in this encounter [facility] 01-04-2024 Nurse Note Patient is refusing PO antibiotic due to it making her severely nauseated and vomiting. Dr. Lin notified of same. [facility] 01-04-2024 Nurse Note Patient is refusing PO antibiotic due to it making her severely nauseated and vomiting. Dr. Lin notified of same. Patient's niece called wondering on possible discharge date and medication for patient. She is hoping when she gets switched to oral antibiotics that we can try a dose here first to see her reaction since she got so sick from them before coming here. Also she is hoping we can send her with some a rx for zofran for in case she gets nauseous again. Sent above message to Dr. Fernandez. OR called for patient I & D schedule. Patient scheduled for tomorrow. Provider adjust diet for NPO at midnight. documented in this encounter [facility] 01-04-2024 Note Formatting of this n ote might be different from the original. Patient Choice Patient Name: DIANA KOHLI Date of : 1940 All Providers Sent Referral Name: [facility] Phone: [phone] Address: [address] [place] [address] [facility] 01-04-2024 Note Formatting of this n ote might be different from the original. Patient Choice Patient Name: DIANA KOHLI Date of : 1940 All Providers Sent Referral Name: [facility] [employer] [facility] Phone: [phone] Address: [address] [place] [address] [facility] 01-04-2024 Note Formatting of this n ote might be different from the original. Discharge order noted in epic. Spoke to patient at bedside. Patient agrees to [facility] for RN follow up. Keturah Landa, notified on discharge today. Patient stated that she will have a ride home. [facility] 04-18-2024 Note Formatting of this n ote might be different from the original. Discharge order noted in epic. Spoke to patient at bedside. Patient agrees to [facility] for RN follow up. ALBERT liaison, Keturah Dove, notified on discharge today. Patient stated that she will have a ride home. [facility] 01-04-2024 Hospital Discharge instructions Kristin Dove RN - 01/04/2024 1:15 PM EDT Continuity of Care Form Patient Name: Diana Kohli : 1940 Admit date: 12/31/2023 Discharge date: Code Status Order: Full Code Advance Directives: Y Admitting Physician: Mani Sanchez MD PCP: Charlene Walker MD Discharging Nurse: Discharging Hospital Unit/Room#: W6-623/W6-623 A Discharging Unit Phone Number: Emergency Contact: Extended Emergency Contact Information Primary Emergency Contact: Piper Hamilton (POA) Mobile Relation: Niece Past Surgical History: Past Surgical History: Procedure Laterality Date CHOLECYSTECTOMY NECK EXPLORATION 01/02/2024 INCISION AND DRAINAGE DEEP ABCESS OR HEMATOMA SOFT TISSUE NECK OR THORAX Immunization History: Immunization History Administered Date(s) Administered Moderna SARS-CoV-2 Vaccination 01/27/2021, 02/24/2021, 09/03/2021 Pneumococcal Conjugate PCV 13 05/04/2021 Pneumococcal Polysaccharide PPSV23 03/05/2019 Active Problems: Medical Problems Problem List * (Principal) Submental abscess Cellulitis of submental space Hypertension Isolation/Infection: No active isolations No active infections Nurse Assessment: Last Vital Signs: BP 151/87 (BP Location: Left arm, Patient Position: Lying) Pulse (!) 45 Temp 36.1 C (97 F) (Temporal) Resp 16 Ht 1.575 m (5' 2") Wt 83.9 kg (185 lb) SpO2 91% BMI 33.84 kg/m Last documented pain score (0-10 scale): Last Weight: Wt Readings from Last 1 Encounters: 12/31/23 83.9 kg (185 lb) Mental Status: {MARISSA Patient Mental Status:50589} IV Access: {MARISSA IV Access:24419} Nursing Mobility/ADLs: Walking {LOGAN ADL:::"Independent"} Transfer {LOGAN ADL:::"Independent"} Bathing {LOGAN ADL:::"Independent"} Dressing {LOGAN ADL:::"Independent"} Toileting {LOGAN ADL:::"Independent"} Feeding {LOGAN ADL:::"Independent"} [facility] {LOGAN ADL:::"Independent"} Med Delivery {yes/no:10096} Wound Care Documentation and Therapy: Wound/Incision 01/02/24 Incision Chin (Active) Site Assessment Red;Swelling;Painful 01/03/24 0800 Yuly-Wound Assessment Swollen (inflammed) 01/03/24 0800 Drainage Description Red 01/03/24 0800 Odor None 01/03/24 08 Drainage Amount Small 01/03/24 0800 Treatments Site care;Cleansed 01/03/24 0800 Primary Dressing ABD 01/03/241999 Dressing Status New dressing 01/03/241999 Number of days: 2 Elimination: Continence: Bowel: {yes/no:51230} Bladder: {yes/no:83458} Urinary Catheter: {MARISSA Urinary Catheter:51356} Colostomy/Ileostomy/Ileal Conduit: {YES / NO:} Date of Last BM: Intake/Output Summary (Last 24 hours) at 01/04/2024 1314 Last data filed at 01/03/2024 1810 Gross per 24 hour Intake 240 ml Output -- Net 240 ml I/O last 3 completed shifts: In: 940 (11.2 mL/kg) [P.O.:840; IV Piggyback:100] Out: 0 (0 mL/kg) Weight: 83.9 kg Safety Concerns: {MARISSA Safety Concerns:49685} Impairments/Disabilities: {MARISSA Impairments/Disabilities:05936} Nutrition Therapy: Current Nutrition Therapy: {MARISSA Diet List:95174} Routes of Feeding: {routes of feedin} Liquids: {liquid consistency:78058} Daily Fluid Restriction: {daily fluid restriction:57432} Last Modified Barium Swallow with Video (Video Swallowing Test): {done not done:10967} Treatments at the Time of Hospital Discharge: Respiratory Treatments: Oxygen Therapy: {Therapy; copd oxygen:50406} Ventilator: {MARISSA Ventilator:63683} Rehab Therapies: {GEN THERAPY DISCIPLINE SCAL:8350205} Weight Bearing Status/Restrictions: {POD WEIGHT BEARIN} Other Medical Equipment (for information only, NOT a DME order): {Assistive Devices DME:76057} Other Treatments: Patient's personal belongings (please select all that are sent with patient): {MARISSA Patient Belongings:33888} RN SIGNATURE: {E-signature:10894} CASE MANAGEMENT/SOCIAL WORK SECTION Inpatient Status Date: Readmission Risk Assessment Score: @READMISSIONRISKDETAILS@ Discharging to Facility/ Agency Name: [facility] Address: [address] [place] [address] Dialysis Facility (if applicable) Name: Address: Dialysis Schedule: Phone: Fax: [facility] [employer] signature: {E-signature:76786} PHYSICIAN SECTION Prognosis: {Rehab Prognosis:67186} Condition at Discharge: {Patient Condition:40315} Rehab Potential (if transferring to Rehab): {Rehab Prognosis:21156} Recommended Labs or Other Treatments After Discharge: Physician Certification: I certify the above information and transfer of Diana Kohli is necessary for the continuing treatment of the diagnosis listed and that she requires {MARISSA Level of Care:59971} for {greater less than:83130} 30 days. Update Admission H&P: {MARISSA Changes in H&P:34336} PHYSICIAN SIGNATURE: {E-signature:60486} documented in this encounter [facility] 01-04-2024 Note Formatting of this n ote is different from the original. Start PACC Note Home Health Referral Educated patient and niece on Home Care and services available. Patient offered choice of available HHC and agreeable to SN services with [facility]. Care Types: None Isolation Precautions: No active isolations Social Determinates of Health: Tobacco Use: High Risk (01/02/2024) Patient History Smoking Tobacco Use: Every Day Smokeless Tobacco Use: Never Passive Exposure: Not on file Social History Substance and Sexual Activity Alcohol Use Not Currently Social History Substance and Sexual Activity Drug Use Not Currently Does the patient have any financial resource strain? No Does the patient have any food insecurities? No Does the patient have any housing instabilities? No If any of the above is noted as yes - consider a LEAD OXIDE MILL TENDER evaluation once the patient returns home. START PATIENT REGISTRATION INFORMATION Order Information Order Signing Physician: Mark Fernandez MD Service Ordered RN ?: Yes Service Ordered PT ?: No Service Ordered OT ?: No Service Ordered ST ?: No Service Ordered LEAD OXIDE MILL TENDER?:No Service Ordered SERVICE RESTORER EMERGENCY?: No Following Physician: Charlene Walker MD Following Physician Overseeing Physician: Charlene Walker MD (Required for Residents only) Agreeable to Follow? Yes Date/Time of Call 01/04/24 1:07 PM, Spoke with: left message with office staff Care Coordination Same Day SOC?: No Primary Care Physician: Charlene Walker MD Primary Care Physician Primary Care Physician Address: [address] [place] [phone] Visit Instructions: N/A Service Discharge Location Type: Home with Home Health Care Service Facility Name: N/A Service Floor Facility: N/A Service Room No: N/A Demographics Patient Last Name: Seun Patient First Name: Diana Language/Communication Barrier: no Service Address: [address] [place] [address] City: [facility] ST: [place] Service ZIP: [address] Service (home) Other phone numbers: [phone] Emergency Contact: Extended Emergency Contact Information Primary Emergency Contact: Alfonso KAMARAJerChristinePiper Mobile Relation: Niece Admission Information Admit Date: 12/31/2023 Patient status at discharge: Inpatient Admitting Diagnosis: Submental abscess [L02.01] Caregiver Information Caregiver First Name: na Caregiver Last Name: na Caregiver Relationship to Patient na Caregiver Phone Number: na Caregiver Notes: N/A [employer] List No END PATIENT REGISTRATION INFORMATION Pt Home Health goal go home COVID Status 1. Do you have any upper respiratory symptoms (cough, SOB, Fever)? No 2. Have you been exposed to anyone with COVID-19 Virus? No Answer only if pending or positive for COVID-19? 1. Agreeable to wear PPE at each visit? No 2. Is the hospital supplying them with PPE upon Discharge? No Start PACC Summary General Report/ Additional Comments Return home with SN Discharge Date: pending Referral Source-PACC: (Hospital/Unit): [facility] / W6-623/W6-623 A End PACC Note [facility] 01-04-2024 Note Formatting of this n ote is different from the original. Start PACC Note Home Health Referral Educated patient and niece on Home Care and services available. Patient offered choice of available HHC and agreeable to SN services with [facility]. Care Types: None Isolation Precautions: No active isolations Social Determinates of Health: Tobacco Use: High Risk (01/02/2024) Patient History Smoking Tobacco Use: Every Day Smokeless Tobacco Use: Never Passive Exposure: Not on file Social History Substance and Sexual Activity Alcohol Use Not Currently Social History Substance and Sexual Activity Drug Use Not Currently Does the patient have any financial resource strain? No Does the patient have any food insecurities? No Does the patient have any housing instabilities? No If any of the above is noted as yes - consider a LEAD OXIDE MILL TENDER evaluation once the patient returns home. START PATIENT REGISTRATION INFORMATION Order Information Order Signing Physician: Mark Fernandez MD Service Ordered RN ?: Yes Service Ordered PT ?: No Service Ordered OT ?: No Service Ordered ST ?: No Service Ordered LEAD OXIDE MILL TENDER?:No Service Ordered SERVICE RESTORER EMERGENCY?: No Following Physician: Charlene Walker MD Following Physician Overseeing Physician: Charlene Walker MD (Required for Residents only) Agreeable to Follow? Yes Date/Time of Call 01/04/24 1:07 PM, Spoke with: left message with office staff Care Coordination Same Day SOC?: No Primary Care Physician: Charlene Walker MD Primary Care Physician Primary Care Physician Address: [address] [place] [address] [address] [place] [phone] Visit Instructions: N/A Service Discharge Location Type: Home with Home Health Care Service Facility Name: N/A Service Floor Facility: N/A Service Room No: N/A Demographics Patient Last Name: Seun Patient First Name: Diana Language/Communication Barrier: be Service Address: [address] [place] [address] Service City: [facility] ST: [place] Service ZIP: [phone] Service (home) Other phone numbers: [phone] Emergency Contact: Extended Emergency Contact Information Primary Emergency Contact: Alfonso AMATO)Piper Mobile Relation: Niece Admission Information Admit Date: 12/31/2023 Patient status at discharge: Inpatient Admitting Diagnosis: Submental abscess [L02.01] Caregiver Information Caregiver First Name: sania Caregiver Last Name: sania Caregiver Relationship to Patient na Caregiver Phone Number: na Caregiver Notes: N/A [employer] List No END PATIENT REGISTRATION INFORMATION Pt Home Health goal go home COVID Status 1. Do you have any upper respiratory symptoms (cough, SOB, Fever)? No 2. Have you been exposed to anyone with COVID-19 Virus? No Answer only if pending or positive for COVID-19? 1. Agreeable to wear PPE at each visit? No 2. Is the hospital supplying them with PPE upon Discharge? No Start PACC Summary General Report/ Additional Comments Return home with SN Discharge Date: pending Referral Source-PACC: (Hospital/Unit): [facility] / W6-623/W6-623 A End PACC Note [facility] 01-04-2024 Nurse Note Patient's niece called wondering on possible discharge date and medication for patient. She is hoping when she gets switched to oral antibiotics that we can try a dose here first to see her reaction since she got so sick from them before coming here. Also she is hoping we can send her with some a rx for zofran for in case she gets nauseous again. Sent above message to Dr. Fernandez. [facility] 01-03-2024 Note Formatting of this n ote might be different from the original. Chart reviewed. Patient s/p I&D with ENT yesterday for submental abscess with drain placed. Cultures sent. Current discharge plan is home no needs, anticipate in 1-2 days. [facility] 01-03-2024 Note Formatting of this n ote might be different from the original. Chart reviewed. Patient s/p I&D with ENT yesterday for submental abscess with drain placed. Cultures sent. Current discharge plan is home no needs, anticipate in 1-2 days. [facility] 01-02-2024 Plan of care note Problem: Pain - Adult Goal: Verbalizes/displays adequate comfort level or baseline comfort level Outcome: Progressing Problem: Discharge Planning Goal: Discharge to home or other facility with appropriate resources Outcome: Progressing [facility] 01-02-2024 Note Formatting of this n ote might be different from the original. Louis Saldaña POA updated by telephone T [facility] 01-02-2024 Note Formatting of this n ote might be different from the original. Louis Saldaña POA updated by telephone T [facility] 01-02-2024 Note Formatting of this n ote might be different from the original. Brief Postoperative Note Diana Kohli Date of : 1940 [id number] Pre-operative Diagnosis: Submental abscess Post-operative Diagnosis: Same Procedure: Incision and drainage submental abscess external approach Description of procedure: Patient was taken to the operating room suite induction of general anesthetic was performed via orotracheal intubation. She was prepped and draped in usual sterile fashion. Horizontal incision was then planned along the submental area at the apex of the abscess. Immediately purulent drainage was encountered this was cultured. There was a significant amount of purulent drainage approximately 50 cc was encountered and drained. Copious irrigation was performed with sterile normal saline. Quarter inch Brittny drain was placed in the pocket and sewn into place with 4-0 Ethilon. Dressing was placed patient was extubated and transferred to PACU in satisfactory postoperative condition having tolerated the procedure well Anesthesia: General Surgeons/Assistants: Smooth Estimated Blood Loss: Minimal Complications: none Specimens: Culture and sensitivity of abscess pocket Roverto Rebollar DO [employer] Phone: 01-02-2024 Note Formatting of this n ote is different from the original. Date: 12/31/2023 - 01/02/2024 Location: [facility] OR Name: Diana Kohli, : 1940, Diagnosis Pre-op Diagnosis * Submental abscess [L02.01] Post-op Diagnosis * Submental abscess [L02.01] Procedures INCISION AND DRAINAGE DEEP ABCESS OR HEMATOMA SOFT TISSUE NECK OR THORAX 90083 - TX I&D DEEP ABSC/HMTMA SOFT TISSUE NECK/THORAX Surgeons * Roverto Rebollar - Primary Procedure Summary Anesthesia: General ASA: II Estimated Blood Loss: Minimal Drains: * None in log * Specimens ID Source Type Tests Collected By Collected At Frozen? Priority Lab ID A Chin Body Fluid AEROBIC AND ANAEROBIC CULTURE WITH STAIN Roverto Rebollar DO 01/02/24 0744 [id number], [id number] Description: submental abscess Staff: Habilitation Specialist: Shelby Fuentes RN Scrub Person: Wes Davis Findings: Large submental abscess pocket opened cultured drained and irrigated Complications: None; patient tolerated the procedure well. Specimens Collected: Order Name Source Comment Collection Info Order Time AEROBIC AND ANAEROBIC CULTURE WITH STAIN Chin Collected By: Roverto Rebollar DO 01/02/2024 7:48 AM Wound Class: Class IV: Dirty Blood Products: None Prophylactic Antibiotics: Pre-operative antibiotics were not given because the patient is on continuous antibiotics for documented preoperative infection. [employer] 01-02-2024 Note Formatting of this n ote might be different from the original. Brief Postoperative Note Diana Kohli Date of : 1940 [id number] Pre-operative Diagnosis: Submental abscess Post-operative Diagnosis: Same Procedure: Incision and drainage submental abscess external approach Description of procedure: Patient was taken to the operating room suite induction of general anesthetic was performed via orotracheal intubation. She was prepped and draped in usual sterile fashion. Horizontal incision was then planned along the submental area at the apex of the abscess. Immediately purulent drainage was encountered this was cultured. There was a significant amount of purulent drainage approximately 50 cc was encountered and drained. Copious irrigation was performed with sterile normal saline. Quarter inch Brittny drain was placed in the pocket and sewn into place with 4-0 Ethilon. Dressing was placed patient was extubated and transferred to PACU in satisfactory postoperative condition having tolerated the procedure well Anesthesia: General Surgeons/Assistants: Smooth Estimated Blood Loss: Minimal Complications: none Specimens: Culture and sensitivity of abscess pocket Roverto Rebollar DO [employer] Work Phone: 01-02-2024 Note Formatting of this n ote is different from the original. Date: 12/31/2023 - 01/02/2024 Location: [facility] OR Name: Diana Kohli, : 1940, Diagnosis Pre-op Diagnosis * Submental abscess [L02.01] Post-op Diagnosis * Submental abscess [L02.01] Procedures INCISION AND DRAINAGE DEEP ABCESS OR HEMATOMA SOFT TISSUE NECK OR THORAX 51854 - TX I&D DEEP ABSC/HMTMA SOFT TISSUE NECK/THORAX Surgeons * Roverto Rebollar - Primary Procedure Summary Anesthesia: General ASA: II Estimated Blood Loss: Minimal Drains: * None in log * Specimens ID Source Type Tests Collected By Collected At Frozen? Priority Lab ID A Chin Body Fluid AEROBIC AND ANAEROBIC CULTURE WITH STAIN Roverto Rebollar DO 01/02/24 0744 [id number], [id number] Description: submental abscess Staff: Habilitation Specialist: Shelby Fuentes RN Scrub Person: Wes Davis Findings: Large submental abscess pocket opened cultured drained and irrigated Complications: None; patient tolerated the procedure well. Specimens Collected: Order Name Source Comment Collection Info Order Time AEROBIC AND ANAEROBIC CULTURE WITH STAIN Chin Collected By: Roverto Rebollar DO 01/02/2024 7:48 AM Wound Class: Class IV: Dirty Blood Products: None Prophylactic Antibiotics: Pre-operative antibiotics were not given because the patient is on continuous antibiotics for documented preoperative infection. [facility] 01-01-2024 Nurse Note OR called for patient I & D schedule. Patient scheduled for tomorrow. Provider adjust diet for NPO at midnight. [facility] 01-01-2024 Note Formatting of this n ote might be different from the original. Care Managment Initial Assessment Date: 01/01/2024 Patient Name: Diana Kohli : 1940 Patient Information Source of Information: Patient Cognition/Language: WFL - Within Functional Limits Permission given to speak with patient telephone claims representative/caregiver as indicated: Yes Confirmation of Payer with patient/family: Yes Payer Name: The health plan medicare [place]: No Confirmation of Primary Care Physician: Confirmed PCP Name: Charlene White Seen in last 2 years?: Yes Primary Caregiver: Self If assistance needed, confirmed caregiver ready, willing and able to care for patient at discharge: No Confirmed with: Living Arrangements Current Residence: House Number of Floors 1 Number of Entry Steps: 3 Bed/Bath Levels: Both first floor Lives with: Alone Support Systems: Family members Activities of Daily Living Ambulation: Independent Bathing/Dressing: Independent Elimination/Continence/Toileting: Independent Feeding: Independent Who Assists with Activities of Daily Living: Instrumental Activities of Daily Living Prescription Coverage: Yes Pharmacy Used: [facility] [place] Medication Management: Independent Transportation/Shopping: Independent Transportation Mode: Car Needs Assistance with Transportation at Discharge: No Meal Preparation: Independent Laundry/Cleaning: Independent Finances/Bill Paying: Independent Communication: Independent Types of Care Services/Equipment Utilized Durable Medical Equipment: Walker, Cane (not using walker, cane when outdoors) Patient's Goal/Discharge Plan Patient expects to be discharged to: home, no current needs Discharge Planning Actions: Continue to follow, No needs identified Patient's Choice Rights and [employer] and Collaborative Relationships Disclosed as Indicated for Post-Acute Care: NA Interdisciplinary Team Engagement: Home Health Care Social Work Referral for: Additional Information: Introduced self and role to patient via bedside. Patient re-admitted (discharge 12/29) for submental swelling/cellulitis after failing home antibiotics. Patient on iv abx. ENT consulted. Keturah Landa, tasked to follow for possible home infusion at discharge. Anticipate discharge in 2-3 days pending medical stability. Patient stated she would have a ride home at discharge. TCC to continue to follow. Dena Stover RN [facility] 01-01-2024 Note Formatting of this n ote might be different from the original. Care Managment Initial Assessment Date: 01/01/2024 Patient Name: Diana Kohli : 1940 Patient Information Source of Information: Patient Cognition/Language: WFL - Within Functional Limits Permission given to speak with patient telephone claims representative/caregiver as indicated: Yes Confirmation of Payer with patient/family: Yes Payer Name: The health plan medicare [place]: No Confirmation of Primary Care Physician: Confirmed PCP Name: Charlene Walker Seen in last 2 years?: Yes Primary Caregiver: Self If assistance needed, confirmed caregiver ready, willing and able to care for patient at discharge: No Confirmed with: Living Arrangements Current Residence: House Number of Floors 1 Number of Entry Steps: 3 Bed/Bath Levels: Both first floor Lives with: Alone Support Systems: Family members Activities of Daily Living Ambulation: Independent Bathing/Dressing: Independent Elimination/Continence/Toileting: Independent Feeding: Independent Who Assists with Activities of Daily Living: Instrumental Activities of Daily Living Prescription Coverage: Yes Pharmacy Used: [facility] [place] Medication Management: Independent Transportation/Shopping: Independent Transportation Mode: Car Needs Assistance with Transportation at Discharge: No Meal Preparation: Independent Laundry/Cleaning: Independent Finances/Bill Paying: Independent Communication: Independent Types of Care Services/Equipment Utilized Durable Medical Equipment: Walker, Cane (not using walker, cane when outdoors) Patient's Goal/Discharge Plan Patient expects to be discharged to: home, no current needs Discharge Planning Actions: Continue to follow, No needs identified Patient's Choice Rights and [employer] and Collaborative Relationships Disclosed as Indicated for Post-Acute Care: NA Interdisciplinary Team Engagement: Home Health Care Social Work Referral for: Additional Information: Introduced self and role to patient via bedside. Patient re-admitted (discharge 12/29) for submental swelling/cellulitis after failing home antibiotics. Patient on iv abx. ENT consulted. Keturah Landa, tasked to follow for possible home infusion at discharge. Anticipate discharge in 2-3 days pending medical stability. Patient stated she would have a ride home at discharge. TCC to continue to follow. Dena Stover RN [facility] [employer] 01-01-2024 Note Formatting of this n ote might be different from the original. 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 [facility] 01-01-2024 Note Formatting of this n ote might be different from the original. 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 [facility] 12-31-2023 History and physical note History and Physical Admit Date: 12/31/2023 PCP: Charlene Walker MD CHIEF COMPLAINT: nausea vomiting Reason for Admission: Submental abscess History Obtained From: patient HISTORY OF PRESENT ILLNESS: Diana is a 83 y.o. female with past medical history below who presents with chief complaint listed above. Presented to the ED initially with a complaint of nausea and vomiting after being discharged yesterday with some mental abscess. She took her instructed steroid medication this morning and afterwards she immediately felt nauseous and vomited. She then tried to take her Augmentin and later vomited afterwards as well. Had chills at home. Pain to the submental region. Had several episodes of vomiting in the ED. No chest pain or shortness of breath. In the ED she was given a 500 cc bolus of lactated Ringer's, given Zofran, started on Unasyn. Workup showed leukocytosis 11,300, decreased from 2 days ago 12,900. No anemia. No thrombocytopenia. Mild hypokalemia 3.4. Otherwise electrolytes unremarkable. No renal insufficiency. Glucose 123. CT soft tissue neck with IV contrast shows status post extraction of left lower tooth #20, previously seen fluid collection a little larger and better defined, may represent an abscess. Will admit for further evaluation and management. Past Medical History: Past Medical History: Diagnosis Date Disease of thyroid gland Hypertension Past Surgical History: Past Surgical History: Procedure Laterality Date CHOLECYSTECTOMY Social History: Social History Socioeconomic History Marital status: Spouse name: Not on file Number of children: Not on file Years of education: Not on file Highest education level: Not on file Occupational History Not on file Tobacco Use Smoking status: Every Day Packs/day: 1 Types: Cigarettes Start date: 12/18/2007 Smokeless tobacco: Never Substance and Sexual Activity Alcohol use: Not Currently Drug use: Not Currently Sexual activity: Not Currently Other Topics Concern Not on file Social History Narrative Not on file Social Determinants of Health Financial Resource Strain: Low Risk (12/29/2023) Overall Financial Resource Strain (CARDIA) Difficulty of Paying Living Expenses: Not very hard Food Insecurity: No Food Insecurity (12/29/2023) Hunger Vital Sign Worried About Running Out of Food in the Last Year: Never true Ran Out of Food in the Last Year: Never true Transportation Needs: No Transportation Needs (12/29/2023) PRAPARE - Transportation Lack of Transportation (Medical): No Lack of Transportation (Non-Medical): No Physical Activity: Inactive (12/29/2023) Exercise Vital Sign Days of Exercise per Week: 0 days Minutes of Exercise per Session: 0 min Stress: No Stress Concern Present (12/29/2023) [employer] [place] [employer] - Occupational Stress Questionnaire Feeling of Stress : Only a little Social Connections: Moderately Integrated (12/29/2023) Social Connection and Isolation Panel [NHANES] Frequency of Communication with Friends and Family: Three times a week Frequency of Social Gatherings with Friends and Family: Three times a week Attends Baptism Services: 1 to 4 times per year Active Member of Clubs or Organizations: Yes Attends Club or Organization Meetings: 1 to 4 times per year Marital Status: Intimate Partner Violence: Not At Risk (12/29/2023) Humiliation, Afraid, Rape, and Kick questionnaire Fear of Current or Ex-Partner: No Emotionally Abused: No Physically Abused: No Sexually Abused: No Housing Stability: Low Risk (12/29/2023) Housing Stability Vital Sign Unable to Pay for Housing in the Last Year: No Number of Places Lived in the Last Year: 1 Unstable Housing in the Last Year: No Family History: No family history on file. Medications Prior to Admission: No current facility-administered medications on file prior to encounter. Current Outpatient Medications on File Prior to Encounter Medication Sig Dispense Refill amLODIPine (Norvasc) 5 MG tablet Take 5 mg by mouth before bedtime. amoxicillin-clavulanate (Augmentin) 875-125 MG tablet Take 1 tablet by mouth 2 times daily for 10 days. 20 tablet 0 aspirin 81 MG EC tablet Take 81 mg by mouth daily. cholecalciferol (Vitamin D-3) 25 MCG (1000 UT) capsule Take 1,000 Units by mouth daily. levothyroxine (Synthroid, Levoxyl) 112 MCG tablet Take 112 mcg by mouth every morning (before breakfast). meclizine (Antivert) 25 MG tablet Take 12.5 mg by mouth in the morning. oxyCODONE-acetaminophen (Percocet) 5-325 MG tablet Take 1 tablet by mouth every 6 hours as needed for moderate pain (4-6) or severe pain (7-10) for up to 7 days. 20 tablet 0 predniSONE (Deltasone) 10 MG tablet Take 5 tablets (50 mg) by mouth every other day for 2 days, THEN 4 tablets (40 mg) every other day for 2 days, THEN 3 tablets (30 mg) every other day for 2 days, THEN 2 tablets (20 mg) every other day for 2 days, THEN 1 tablet (10 mg) every other day for 2 days. 15 tablet 0 [DISCONTINUED] predniSONE (Deltasone) 10 MG tablet Take 5 tablets (50 mg) by mouth every other day for 2 days, THEN 4 tablets (40 mg) every other day for 2 days, THEN 3 tablets (30 mg) every other day for 2 days, THEN 2 tablets (20 mg) every other day for 2 days, THEN 1 tablet (10 mg) every other day for 2 days. 15 tablet 0 Allergies: No Known Allergies REVIEW OF SYSTEMS: Please see above Vitals: BP (!) 134/101 Pulse 68 Temp 36.4 C (97.5 F) (Temporal) Resp 20 Ht 5' 2" (1.575 m) Wt 185 lb (83.9 kg) SpO2 94% BMI 33.84 kg/m BMI Classification: Obese (BMI 30.0-39.9) Pulse Ox: SpO2 Av.3 % Min: 94 % Max: 98 % Supplemental O2: PHYSICAL EXAM: Physical Exam General: Patient appears to be well-developed and well-nourished. Patient does not appear to be in acute distress. Vital signs noted. HEENT: Head appears normocephalic/atraumatic. External ears and nose normal. Oropharynx clear and moist. Significant swelling with erythema, induration and slight fluctuance to the submental region. Pupils are round and reactive to light. Cardiac: Regular rate and rhythm. Pulmonary: Lungs are clear to auscultation. No wheezes or rales heard. Abdomen: Bowel sounds heard all 4 quadrants. Abdomen is soft and nontender. No rigidity or guarding noted. Extremities: Patient is moving all extremities without difficulty. Extremities appear to be well perfused. Skin: Warm and dry. Neurologic: Alert and oriented 3. Psychiatric: Mood and behavior normal DATA: CBC: Recent Labs 12/29/23 0453 12/31/23 1838 WBC 12.9* 11.3* RBC 4.70 5.02 HGB 14.8 15.4 HCT 45.0 46.5 MCV 95.7 92.6 RDW 12.4 12.5 PLT 307 405 BMP: Recent Labs 12/29/23 0453 12/31/23 1838 NA 139 141 K 3.6 3.4* CL 106 106 CO2 26 26 BUN 19* 30* CREATININE 0.89 0.91 GLUCOSE 105* 123* CALCIUM 9.2 9.3 ANIONGAP 6 9 LIVER PROFILE:No results for input(s): "AST", "ALT", "BILITOT", "ALKPHOS", "PROT" in the last 72 hours. No lab exists for component: LABALBU PT/INR: Recent Labs 12/29/23 0453 PROTIME 10.6 INR 1.0 CARDIAC ENZYMES: No results for input(s): "TROPONINI" in the last 72 hours. Procalcitonin: No results found for: PROCAL Urine Culture: No results found for this or any previous visit. COVID-19 PCR: No results for input(s): "COVID19" in the last 72 hours. I reviewed: [x] laboratory results [x] radiographic results At the time of today's encounter. Pt was advised of the results. Data: (CAT1) Reviewed 3 or more labs/studies ordered by another provider not previously counted (each=1, panels count as 1). (CAT3) Discussed with ED provider, Dr. Avalos, regarding patient's eval & mgmt thus far, and agree with the plan for hospitalization. (LOW: 2x CAT1 or independent historian MOD: 3x CAT1 or 1x CAT3 EXTENSIVE: 3x CAT1 and 1x CAT3) Assessment Discussed management with the ED provider and agree with hospitalization. Acute, acute on chronic, unstable/uncontrolled chronic problems/diagnoses: Submental abscess Stable chronic problems affecting care, new non-acute diagnoses: Hypertension Hypothyroidism Plan As a result of the above findings & factors, the following mgmt was pursued: - Submental abscess - larger on CT scan today compared to 12/27 - ENT consult - Continue Unasyn - NPO MN - Possible I&D in AM - Pain control - Nausea control - am labs, replace lytes prn - PT/OT/CM/SW - delirium precautions: increase activity and limit nighttime disturbances - DVT prophylaxis: enoxaparin and encourage ambulation Complexity: Acute illness with systemic symptoms (MOD). Risk: Admission to hospital-level care was considered or occurred (HIGH). Advance Directive: Full Code Anticipated Discharge - Date - 01/02/2024 - Location - TBD - Pending the following - ENT consult, IV abx, possible I&D, pain control Total time spent (which include face to face and non face to face encounters) : 55 minutes. Extended Emergency Contact Information Primary Emergency Contact: Piper Hamilton (POA) Mobile Relation: Louis Westbrook PA-C Division of Hospitalist Medicine [facility]patient Medical [facility] [place] [employer] Phone: 12-31-2023 History and physical note History and Physical Admit Date: 12/31/2023 PCP: Charlene Walker MD CHIEF COMPLAINT: nausea vomiting Reason for Admission: Submental abscess History Obtained From: patient HISTORY OF PRESENT ILLNESS: Diana is a 83 y.o. female with past medical history below who presents with chief complaint listed above. Presented to the ED initially with a complaint of nausea and vomiting after being discharged yesterday with some mental abscess. She took her instructed steroid medication this morning and afterwards she immediately felt nauseous and vomited. She then tried to take her Augmentin and later vomited afterwards as well. Had chills at home. Pain to the submental region. Had several episodes of vomiting in the ED. No chest pain or shortness of breath. In the ED she was given a 500 cc bolus of lactated Ringer's, given Zofran, started on Unasyn. Workup showed leukocytosis 11,300, decreased from 2 days ago 12,900. No anemia. No thrombocytopenia. Mild hypokalemia 3.4. Otherwise electrolytes unremarkable. No renal insufficiency. Glucose 123. CT soft tissue neck with IV contrast shows status post extraction of left lower tooth #20, previously seen fluid collection a little larger and better defined, may represent an abscess. Will admit for further evaluation and management. Past Medical History: Past Medical History: Diagnosis Date Disease of thyroid gland Hypertension Past Surgical History: Past Surgical History: Procedure Laterality Date CHOLECYSTECTOMY Social History: Social History Socioeconomic History Marital status: Spouse name: Not on file Number of children: Not on file Years of education: Not on file Highest education level: Not on file Occupational History Not on file Tobacco Use Smoking status: Every Day Packs/day: 1 Types: Cigarettes Start date: 12/18/2007 Smokeless tobacco: Never Substance and Sexual Activity Alcohol use: Not Currently Drug use: Not Currently Sexual activity: Not Currently Other Topics Concern Not on file Social History Narrative Not on file Social Determinants of Health Financial Resource Strain: Low Risk (12/29/2023) Overall Financial Resource Strain (CARDIA) Difficulty of Paying Living Expenses: Not very hard Food Insecurity: No Food Insecurity (12/29/2023) Hunger Vital Sign Worried About Running Out of Food in the Last Year: Never true Ran Out of Food in the Last Year: Never true Transportation Needs: No Transportation Needs (12/29/2023) PRAPARE - Transportation Lack of Transportation (Medical): No Lack of Transportation (Non-Medical): No Physical Activity: Inactive (12/29/2023) Exercise Vital Sign Days of Exercise per Week: 0 days Minutes of Exercise per Session: 0 min Stress: No Stress Concern Present (12/29/2023) [employer] [place] [employer] - Occupational Stress Questionnaire Feeling of Stress : Only a little Social Connections: Moderately Integrated (12/29/2023) Social Connection and Isolation Panel [NHANES] Frequency of Communication with Friends and Family: Three times a week Frequency of Social Gatherings with Friends and Family: Three times a week Attends Baptism Services: 1 to 4 times per year Active Member of Clubs or Organizations: Yes Attends Club or Organization Meetings: 1 to 4 times per year Marital Status: Intimate Partner Violence: Not At Risk (12/29/2023) Humiliation, Afraid, Rape, and Kick questionnaire Fear of Current or Ex-Partner: No Emotionally Abused: No Physically Abused: No Sexually Abused: No Housing Stability: Low Risk (12/29/2023) Housing Stability Vital Sign Unable to Pay for Housing in the Last Year: No Number of Places Lived in the Last Year: 1 Unstable Housing in the Last Year: No Family History: No family history on file. Medications Prior to Admission: No current facility-administered medications on file prior to encounter. Current Outpatient Medications on File Prior to Encounter Medication Sig Dispense Refill amLODIPine (Norvasc) 5 MG tablet Take 5 mg by mouth before bedtime. amoxicillin-clavulanate (Augmentin) 875-125 MG tablet Take 1 tablet by mouth 2 times daily for 10 days. 20 tablet 0 aspirin 81 MG EC tablet Take 81 mg by mouth daily. cholecalciferol (Vitamin D-3) 25 MCG (1000 UT) capsule Take 1,000 Units by mouth daily. levothyroxine (Synthroid, Levoxyl) 112 MCG tablet Take 112 mcg by mouth every morning (before breakfast). meclizine (Antivert) 25 MG tablet Take 12.5 mg by mouth in the morning. oxyCODONE-acetaminophen (Percocet) 5-325 MG tablet Take 1 tablet by mouth every 6 hours as needed for moderate pain (4-6) or severe pain (7-10) for up to 7 days. 20 tablet 0 predniSONE (Deltasone) 10 MG tablet Take 5 tablets (50 mg) by mouth every other day for 2 days, THEN 4 tablets (40 mg) every other day for 2 days, THEN 3 tablets (30 mg) every other day for 2 days, THEN 2 tablets (20 mg) every other day for 2 days, THEN 1 tablet (10 mg) every other day for 2 days. 15 tablet 0 [DISCONTINUED] predniSONE (Deltasone) 10 MG tablet Take 5 tablets (50 mg) by mouth every other day for 2 days, THEN 4 tablets (40 mg) every other day for 2 days, THEN 3 tablets (30 mg) every other day for 2 days, THEN 2 tablets (20 mg) every other day for 2 days, THEN 1 tablet (10 mg) every other day for 2 days. 15 tablet 0 Allergies: No Known Allergies REVIEW OF SYSTEMS: Please see above Vitals: BP (!) 134/101 Pulse 68 Temp 36.4 C (97.5 F) (Temporal) Resp 20 Ht 5' 2" (1.575 m) Wt 185 lb (83.9 kg) SpO2 94% BMI 33.84 kg/m BMI Classification: Obese (BMI 30.0-39.9) Pulse Ox: SpO2 Av.3 % Min: 94 % Max: 98 % Supplemental O2: PHYSICAL EXAM: Physical Exam General: Patient appears to be well-developed and well-nourished. Patient does not appear to be in acute distress. Vital signs noted. HEENT: Head appears normocephalic/atraumatic. External ears and nose normal. Oropharynx clear and moist. Significant swelling with erythema, induration and slight fluctuance to the submental region. Pupils are round and reactive to light. Cardiac: Regular rate and rhythm. Pulmonary: Lungs are clear to auscultation. No wheezes or rales heard. Abdomen: Bowel sounds heard all 4 quadrants. Abdomen is soft and nontender. No rigidity or guarding noted. Extremities: Patient is moving all extremities without difficulty. Extremities appear to be well perfused. Skin: Warm and dry. Neurologic: Alert and oriented 3. Psychiatric: Mood and behavior normal DATA: CBC: Recent Labs 12/29/23 0453 12/31/23 1838 WBC 12.9* 11.3* RBC 4.70 5.02 HGB 14.8 15.4 HCT 45.0 46.5 MCV 95.7 92.6 RDW 12.4 12.5 PLT 307 405 BMP: Recent Labs 12/29/23 0453 12/31/23 1838 NA 139 141 K 3.6 3.4* CL 106 106 CO2 26 26 BUN 19* 30* CREATININE 0.89 0.91 GLUCOSE 105* 123* CALCIUM 9.2 9.3 ANIONGAP 6 9 LIVER PROFILE:No results for input(s): "AST", "ALT", "BILITOT", "ALKPHOS", "PROT" in the last 72 hours. No lab exists for component: LABALBU PT/INR: Recent Labs 12/29/23 0453 PROTIME 10.6 INR 1.0 CARDIAC ENZYMES: No results for input(s): "TROPONINI" in the last 72 hours. Procalcitonin: No results found for: PROCAL Urine Culture: No results found for this or any previous visit. COVID-19 PCR: No results for input(s): "COVID19" in the last 72 hours. I reviewed: [x] laboratory results [x] radiographic results At the time of today's encounter. Pt was advised of the results. Data: (CAT1) Reviewed 3 or more labs/studies ordered by another provider not previously counted (each=1, panels count as 1). (CAT3) Discussed with ED provider, Dr. Avalos, regarding patient's eval & mgmt thus far, and agree with the plan for hospitalization. (LOW: 2x CAT1 or independent historian MOD: 3x CAT1 or 1x CAT3 EXTENSIVE: 3x CAT1 and 1x CAT3) Assessment Discussed management with the ED provider and agree with hospitalization. Acute, acute on chronic, unstable/uncontrolled chronic problems/diagnoses: Submental abscess Stable chronic problems affecting care, new non-acute diagnoses: Hypertension Hypothyroidism Plan As a result of the above findings & factors, the following mgmt was pursued: - Submental abscess - larger on CT scan today compared to 12/27 - ENT consult - Continue Unasyn - NPO MN - Possible I&D in AM - Pain control - Nausea control - am labs, replace lytes prn - PT/OT/CM/SW - delirium precautions: increase activity and limit nighttime disturbances - DVT prophylaxis: enoxaparin and encourage ambulation Complexity: Acute illness with systemic symptoms (MOD). Risk: Admission to hospital-level care was considered or occurred (HIGH). Advance Directive: Full Code Anticipated Discharge - Date - 01/02/2024 - Location - TBD - Pending the following - ENT consult, IV abx, possible I&D, pain control Total time spent (which include face to face and non face to face encounters) : 55 minutes. Extended Emergency Contact Information Primary Emergency Contact: Hamilton ASADPiper Medina Mobile Relation: Louis Westbrook PA-C Division of Hospitalist Medicine [place] [place] in this encounter [facility] 12-31-2023 Emergency department Note Patient given snacks and Clarisa vidya as requested. She is NPO at midnight. Lela Brown RN 12/31/232227 [facility] 12-31-2023 Emergency department Note Patient given snacks and Clarisa vidya as requested. She is NPO at midnight. Lela Brown RN 12/31/232227 Resident at bedside to update patient. Lela Brown RN 12/31/232148 Patient given lemon swabs for dry mouth. Lela Brown RN 12/31/232136 Patient sitting in chair as bed is too uncomfortable. Lela Brown RN 12/31/232127 Patient ambulated to RR after medication was completed. Daughter and myself assisted. Lela Brown RN 12/31/232043 Patient back from CT scan. Antibiotic started as ordered. Lela Brown RN 12/31/231947 Patient ambulated to RR with Alonso Srivastava RN and daughter. She was assisted back to bed and then CT took her for testing. Lela Brown RN 12/31/231941 EMERGENCY DEPARTMENT ENCOUNTER Pt Name: Diana Kohli Birthdate 1940 Date of evaluation: 12/31/2023 ED Provider: James Avalos MD CHIEF COMPLAINT Chief Complaint Patient presents with Vomiting Pt took her first dose of steroids & abx today around 0830 and about 1 hour after began vomiting. Reports she thought that may be due to her eating on an empty stomach so she took her noon dose with food and still developed nausea & vomiting. Reports she has been having intermittent vomiting and chills since. Pt vomiting upon triage HISTORY OF PRESENT ILLNESS (Location/Symptom, Timing/Onset, Context/Setting, Quality, Duration, Modifying Factors, Severity) Note limiting factors. I wore appropriate PPE for the entirety of this encounter. HPI Diana Kohli is a 83 y.o. who presents to the emergency department for nausea/vomiting and was discharged yesterday for submental swelling. Patient reports that she took her steroid medication this morning and then immediately vomited afterwards. She then tried to take her Augmentin later in the morning, in which she vomited approximately 1 hour afterwards. She then began to feel chills. Patient subsequently had 2-3 more episodes of vomiting in the ED, however, she reports that they were less than the first 2. Patient reports tenderness in her submental region which shows significant induration of her submental swelling. She has no concerns of acute respiratory distress. She had a bowel movement this morning, no issue with urination today. No chest pain shortness of breath. Nursing Notes were reviewed. Limitations to history: None Outside historians: None REVIEW OF SYSTEMS Review of Systems Constitutional: Positive for chills. Negative for fever. HENT: Positive for facial swelling. Negative for drooling. Respiratory: Negative for chest tightness. Cardiovascular: Negative for chest pain. Gastrointestinal: Negative for abdominal pain and constipation. Genitourinary: Negative for difficulty urinating. Neurological: Negative for dizziness and weakness. Pertinent positives and negatives as per HPI. PAST MEDICAL HISTORY Past Medical History: Diagnosis Date Disease of thyroid gland Hypertension SURGICAL HISTORY Past Surgical History: Procedure Laterality Date CHOLECYSTECTOMY CURRENT MEDICATIONS Previous Medications AMLODIPINE (NORVASC) 5 MG TABLET Take 5 mg by mouth before bedtime. AMOXICILLIN-CLAVULANATE (AUGMENTIN) 875-125 MG TABLET Take 1 tablet by mouth 2 times daily for 10 days. ASPIRIN 81 MG EC TABLET Take 81 mg by mouth daily. CHOLECALCIFEROL (VITAMIN D-3) 25 MCG (1000 UT) CAPSULE Take 1,000 Units by mouth daily. LEVOTHYROXINE (SYNTHROID, LEVOXYL) 112 MCG TABLET Take 112 mcg by mouth every morning (before breakfast). MECLIZINE (ANTIVERT) 25 MG TABLET Take 12.5 mg by mouth in the morning. OXYCODONE-ACETAMINOPHEN (PERCOCET) 5-325 MG TABLET Take 1 tablet by mouth every 6 hours as needed for moderate pain (4-6) or severe pain (7-10) for up to 7 days. PREDNISONE (DELTASONE) 10 MG TABLET Take 5 tablets (50 mg) by mouth every other day for 2 days, THEN 4 tablets (40 mg) every other day for 2 days, THEN 3 tablets (30 mg) every other day for 2 days, THEN 2 tablets (20 mg) every other day for 2 days, THEN 1 tablet (10 mg) every other day for 2 days. ALLERGIES Patient has no known allergies. FAMILY HISTORY No family history on file. SOCIAL HISTORY Social History Socioeconomic History Marital status: Tobacco Use Smoking status: Every Day Packs/day: 1 Types: Cigarettes Start date: 12/18/2007 Smokeless tobacco: Never Substance and Sexual Activity Alcohol use: Not Currently Drug use: Not Currently Sexual activity: Not Currently Social Determinants of Health Financial Resource Strain: Low Risk (12/29/2023) Overall Financial Resource Strain (CARDIA) Difficulty of Paying Living Expenses: Not very hard Food Insecurity: No Food Insecurity (12/29/2023) Hunger Vital Sign Worried About Running Out of Food in the Last Year: Never true Ran Out of Food in the Last Year: Never true Transportation Needs: No Transportation Needs (12/29/2023) PRAPARE - Transportation Lack of Transportation (Medical): No Lack of Transportation (Non-Medical): No Physical Activity: Inactive (12/29/2023) Exercise Vital Sign Days of Exercise per Week: 0 days Minutes of Exercise per Session: 0 min Stress: No Stress Concern Present (12/29/2023) [employer] [place] [employer] - Occupational Stress Questionnaire Feeling of Stress : Only a little Social Connections: Moderately Integrated (12/29/2023) Social Connection and Isolation Panel [NHANES] Frequency of Communication with Friends and Family: Three times a week Frequency of Social Gatherings with Friends and Family: Three times a week Attends Baptism Services: 1 to 4 times per year Active Member of Clubs or Organizations: Yes Attends Club or Organization Meetings: 1 to 4 times per year Marital Status: Intimate Partner Violence: Not At Risk (12/29/2023) Humiliation, Afraid, Rape, and Kick questionnaire Fear of Current or Ex-Partner: No Emotionally Abused: No Physically Abused: No Sexually Abused: No Housing Stability: Low Risk (12/29/2023) Housing Stability Vital Sign Unable to Pay for Housing in the Last Year: No Number of Places Lived in the Last Year: 1 Unstable Housing in the Last Year: No SCREENINGS Latosha Coma Scale Best Eye Response: Spontaneous Best Verbal Response: Oriented Best Motor Response: Follows commands Latosha Coma Scale Score: 15 PHYSICAL EXAM ED Triage Vitals Temp Heart Rate Resp BP 12/31/23 1719 12/31/23 1719 12/31/23 17112/31/23 1723 36.4 C (97.5 F) 58 18 131/79 SpO2 Temp Source Heart Rate Source Patient Position 12/31/23 1719 12/31/23 1719 -- -- 95 % Oral BP Location FiO2 (%) -- -- Physical Exam Constitutional: Appearance: Normal appearance. HENT: Head: Normocephalic. Mouth/Throat: Mouth: Mucous membranes are moist. Comments: Significant submental swelling with induration and tenderness on exam. Eyes: Extraocular Movements: Extraocular movements intact. Pupils: Pupils are equal, round, and reactive to light. Cardiovascular: Rate and Rhythm: Normal rate and regular rhythm. Pulses: Normal pulses. Heart sounds: Normal heart sounds. Pulmonary: Effort: Pulmonary effort is normal. No respiratory distress. Breath sounds: Normal breath sounds. No wheezing. Abdominal: General: Abdomen is flat. Tenderness: There is no abdominal tenderness. Musculoskeletal: General: Normal range of motion. Cervical back: Normal range of motion and neck supple. Tenderness present. Lymphadenopathy: Cervical: No cervical adenopathy. Skin: General: Skin is warm. Findings: Erythema (Along submental region) present. Neurological: Mental Status: She is alert. DIAGNOSTIC RESULTS RADIOLOGY (Per Emergency Physician): Interpretation per the Radiologist below, if available at the time of this note: CT soft tissue neck w IV contrast Final Result 1. Status post extraction of left lower tooth number 20, previously seen fluid collection a little larger and better defined, may represent an abscess. Report Dictated on Electronically Signed By: Branden Linares MD Electronically Signed Date/Time: 12/31/2023 7:56 PM EDT LABS: Labs Reviewed CBC WITH AUTO DIFFERENTIAL - Abnormal Result Value Auto WBC 11.3 (*) RBC 5.02 Hemoglobin 15.4 Hematocrit 46.5 MCV 92.6 MCH 30.7 MCHC 33.1 RDW 12.5 Platelets 405 MPV 9.7 nRBC 0.0 Neutrophils Relative 86.5 (*) Lymphocytes Relative 6.4 (*) Monocytes Relative 5.0 Eosinophils Relative 0.8 Basophils Relative 0.4 Immature Grans % 0.9 Neutrophils Absolute 9.8 (*) Lymphocytes Absolute 0.7 (*) Monocytes Absolute 0.6 Eosinophils Absolute 0.1 Basophils Absolute 0.1 Immature Grans Absolute 0.1 (*) BASIC METABOLIC PANEL - Abnormal SODIUM 141 POTASSIUM 3.4 (*) CHLORIDE 106 CARBON DIOXIDE 26 UREA NITROGEN 30 (*) CREATININE 0.91 GLUCOSE 123 (*) CALCIUM 9.3 ANION GAP 9 eGFR 63.5 All other labs were within normal range or not returned as of this dictation. EMERGENCY DEPARTMENT COURSE and DIFFERENTIAL DIAGNOSIS/MDM: Vitals: Vitals: 12/31/23 1723 12/31/23 1729 12/31/23 1955 12/31/23 2242 BP: 131/79 (!) 157/77 (!) 151/79 BP Location: Left arm Left arm Patient Position: Sitting Sitting Pulse: 64 73 Resp: 18 15 Temp: 36.5 C (97.7 F) 36.3 C (97.4 F) TempSrc: Oral Oral SpO2: 94% 98% Weight: 83.9 kg (185 lb) Height: 1.575 m (5' 2") The patient presented with a chief complaint of vomiting. The differential diagnosis associated with this patient's presentation includes submental cellulitis versus submental abscess versus Austen angina. Our workup consisted of ordering/reviewing CT neck soft tissue, BMP, CBC, EKG. Diagnoses as of 12/31/232303 Submental abscess External records reviewed: Inpatient notes previous admission on 12/28/2023 Diagnostics interpreted by me: EKG(s) no acute ischemic changes Discussions with other clinicians: Admitting team [facility] Chronic conditions impacting care: none Social determinants of health affecting care: none ED Medications managed: Medications lactated ringers bolus 500 mL (0 mL IntraVENous Stopped 12/31/231934) ampicillin-sulbactam (Unasyn) 3,000 mg in sodium chloride 0.9 % 100 mL IVPB (Add-Partlow) (0 mg IntraVENous Stopped 12/31/232018) ondansetron (Zofran) injection 4 mg (4 mg IntraVENous Given 12/31/231844) iopamidol (Isovue-370) 76 % injection 75 mL (75 mL IntraVENous Given 12/31/231942) Prescription drugs considered: Antibiotics Unasyn and Antiemetics Zofran PROCEDURES: Unless otherwise noted below, none Procedures FINAL IMPRESSION 1. Submental abscess DISPOSITION Admit 12/31/2023 09:45:03 PM PATIENT REFERRED TO: No follow-up provider specified. DISCHARGE MEDICATIONS: New Prescriptions No medications on file (Comment: Please note this report has been produced using speech recognition software and may contain errors related to that system including errors in grammar, punctuation, and spelling, as well as words and phrases that may be inappropriate. If there are any questions or concerns please feel free to contact the dictating provider for clarification.) James Avalos MD (electronically signed) Emergency Medicine Provider James Avalos MD Resident 12/31/232304 Emergency Department Encounter [facility] Patient: Diana Kohli : 1940 Date of Evaluation: 12/31/2023 ED Supervising Physician: Jose Gilmore DO I personally evaluated Diana Kohli and made/approved the management plan and take responsibility for the patient management. This will serve as my Supervisory note and shared attestation. I did perform a substantive portion of the visit including all aspects of the Medical Decision Making. I wore appropriate PPE for the entirety of this encounter. In brief, Diana Kohli is a 83 y.o. that presents to the emergency department with chief complaint of continued swelling to under her chin area. Recently admitted for the same. Treated with antibiotics and steroids and also tooth extraction which was likely contributing to the infection. Patient states she has been nauseous and vomiting and has continued difficulty swallowing due to the swelling under her chin. Focused exam: Cellulitis of the submental space with associated fluctuance. No spontaneous purulent drainage. Currently tolerating oral secretions. Phonation is slightly altered by the swelling. No neck stiffness. Brief ED course/MDM: CT was repeated because of strong suspicion for abscess developing especially with continued prominent soft tissue swelling of the submental area. Currently no hard signs of any airway compromise. Suitable for floor for continued antibiotics and ENT consultation. Suspect patient will need incision and drainage in the operating room based on the depth of the abscess and the location of it. All diagnostic, treatment, and disposition decisions were made by myself in conjunction with the Resident. I also supervised littlejohn portions of any procedures performed by the Resident. For all further details of the patient's emergency department visit, please see their documentation. (Comment: Please note this report has been produced using speech recognition software and may contain errors related to that system including errors in grammar, punctuation, and spelling, as well as words and phrases that may be inappropriate. If there are any questions or concerns please feel free to contact the dictating provider for clarification.) Jose Gilmore DO [employer] Jose Gilmore DO 01/03/24 0821 documented in this encounter [facility] 12-31-2023 Emergency department Note Resident at bedside to update patient. Lela Brown RN 12/31/23 0154 [facility] 12-31-2023 Emergency department Note Patient given lemon swabs for dry mouth. Lela Brown RN 04/2136 [facility] 12-31-2023 Emergency department Note Patient sitting in chair as bed is too uncomfortable. Lela Brown RN 12/31/232127 [facility] 12-31-2023 Emergency department Note Patient ambulated to RR after medication was completed. Daughter and myself assisted. Lela Brown RN 12/31/232043 [facility] 12-31-2023 Emergency department Note Patient back from CT scan. Antibiotic started as ordered. Lela Brown RN 12/31/231947 [facility] 12-31-2023 Emergency department Note Patient ambulated to with Alonso Srivastava RN and daughter. She was assisted back to bed and then CT took her for testing. Lela Brown RN 12/31/231941 [facility] 12-31-2023 Physician Emergency department Note EMERGENCY DEPARTMENT ENCOUNTER Pt Name: Diana Kohli Birthdate 1940 Date of evaluation: 12/31/2023 ED Provider: James Avalos MD CHIEF COMPLAINT Chief Complaint Patient presents with Vomiting Pt took her first dose of steroids & abx today around 0830 and about 1 hour after began vomiting. Reports she thought that may be due to her eating on an empty stomach so she took her noon dose with food and still developed nausea & vomiting. Reports she has been having intermittent vomiting and chills since. Pt vomiting upon triage HISTORY OF PRESENT ILLNESS (Location/Symptom, Timing/Onset, Context/Setting, Quality, Duration, Modifying Factors, Severity) Note limiting factors. I wore appropriate PPE for the entirety of this encounter. HPI Diana Kohli is a 83 y.o. who presents to the emergency department for nausea/vomiting and was discharged yesterday for submental swelling. Patient reports that she took her steroid medication this morning and then immediately vomited afterwards. She then tried to take her Augmentin later in the morning, in which she vomited approximately 1 hour afterwards. She then began to feel chills. Patient subsequently had 2-3 more episodes of vomiting in the ED, however, she reports that they were less than the first 2. Patient reports tenderness in her submental region which shows significant induration of her submental swelling. She has no concerns of acute respiratory distress. She had a bowel movement this morning, no issue with urination today. No chest pain shortness of breath. Nursing Notes were reviewed. Limitations to history: None Outside historians: None REVIEW OF SYSTEMS Review of Systems Constitutional: Positive for chills. Negative for fever. HENT: Positive for facial swelling. Negative for drooling. Respiratory: Negative for chest tightness. Cardiovascular: Negative for chest pain. Gastrointestinal: Negative for abdominal pain and constipation. Genitourinary: Negative for difficulty urinating. Neurological: Negative for dizziness and weakness. Pertinent positives and negatives as per HPI. PAST MEDICAL HISTORY Past Medical History: Diagnosis Date Disease of thyroid gland Hypertension SURGICAL HISTORY Past Surgical History: Procedure Laterality Date CHOLECYSTECTOMY CURRENT MEDICATIONS Previous Medications AMLODIPINE (NORVASC) 5 MG TABLET Take 5 mg by mouth before bedtime. AMOXICILLIN-CLAVULANATE (AUGMENTIN) 875-125 MG TABLET Take 1 tablet by mouth 2 times daily for 10 days. ASPIRIN 81 MG EC TABLET Take 81 mg by mouth daily. CHOLECALCIFEROL (VITAMIN D-3) 25 MCG (1000 UT) CAPSULE Take 1,000 Units by mouth daily. LEVOTHYROXINE (SYNTHROID, LEVOXYL) 112 MCG TABLET Take 112 mcg by mouth every morning (before breakfast). MECLIZINE (ANTIVERT) 25 MG TABLET Take 12.5 mg by mouth in the morning. OXYCODONE-ACETAMINOPHEN (PERCOCET) 5-325 MG TABLET Take 1 tablet by mouth every 6 hours as needed for moderate pain (4-6) or severe pain (7-10) for up to 7 days. PREDNISONE (DELTASONE) 10 MG TABLET Take 5 tablets (50 mg) by mouth every other day for 2 days, THEN 4 tablets (40 mg) every other day for 2 days, THEN 3 tablets (30 mg) every other day for 2 days, THEN 2 tablets (20 mg) every other day for 2 days, THEN 1 tablet (10 mg) every other day for 2 days. ALLERGIES Patient has no known allergies. FAMILY HISTORY No family history on file. SOCIAL HISTORY Social History Socioeconomic History Marital status: Tobacco Use Smoking status: Every Day Packs/day: 1 Types: Cigarettes Start date: 12/18/2007 Smokeless tobacco: Never Substance and Sexual Activity Alcohol use: Not Currently Drug use: Not Currently Sexual activity: Not Currently Social Determinants of Health Financial Resource Strain: Low Risk (12/29/2023) Overall Financial Resource Strain (CARDIA) Difficulty of Paying Living Expenses: Not very hard Food Insecurity: No Food Insecurity (12/29/2023) Hunger Vital Sign Worried About Running Out of Food in the Last Year: Never true Ran Out of Food in the Last Year: Never true Transportation Needs: No Transportation Needs (12/29/2023) PRAPARE - Transportation Lack of Transportation (Medical): No Lack of Transportation (Non-Medical): No Physical Activity: Inactive (12/29/2023) Exercise Vital Sign Days of Exercise per Week: 0 days Minutes of Exercise per Session: 0 min Stress: No Stress Concern Present (12/29/2023) [employer] [place] [employer] - Occupational Stress Questionnaire Feeling of Stress : Only a little Social Connections: Moderately Integrated (12/29/2023) Social Connection and Isolation Panel [NHANES] Frequency of Communication with Friends and Family: Three times a week Frequency of Social Gatherings with Friends and Family: Three times a week Attends Baptism Services: 1 to 4 times per year Active Member of Clubs or Organizations: Yes Attends Club or Organization Meetings: 1 to 4 times per year Marital Status: Intimate Partner Violence: Not At Risk (12/29/2023) Humiliation, Afraid, Rape, and Kick questionnaire Fear of Current or Ex-Partner: No Emotionally Abused: No Physically Abused: No Sexually Abused: No Housing Stability: Low Risk (12/29/2023) Housing Stability Vital Sign Unable to Pay for Housing in the Last Year: No Number of Places Lived in the Last Year: 1 Unstable Housing in the Last Year: No SCREENINGS Latosha Coma Scale Best Eye Response: Spontaneous Best Verbal Response: Oriented Best Motor Response: Follows commands Latosha Coma Scale Score: 15 PHYSICAL EXAM ED Triage Vitals Temp Heart Rate Resp BP 12/31/23171812/31/23171812/31/23171812/31/23 1723 36.4 C (97.5 F) 58 18 131/79 SpO2 Temp Source Heart Rate Source Patient Position 12/31/23171812/31/231718 -- -- 95 % Oral BP Location FiO2 (%) -- -- Physical Exam Constitutional: Appearance: Normal appearance. HENT: Head: Normocephalic. Mouth/Throat: Mouth: Mucous membranes are moist. Comments: Significant submental swelling with induration and tenderness on exam. Eyes: Extraocular Movements: Extraocular movements intact. Pupils: Pupils are equal, round, and reactive to light. Cardiovascular: Rate and Rhythm: Normal rate and regular rhythm. Pulses: Normal pulses. Heart sounds: Normal heart sounds. Pulmonary: Effort: Pulmonary effort is normal. No respiratory distress. Breath sounds: Normal breath sounds. No wheezing. Abdominal: General: Abdomen is flat. Tenderness: There is no abdominal tenderness. Musculoskeletal: General: Normal range of motion. Cervical back: Normal range of motion and neck supple. Tenderness present. Lymphadenopathy: Cervical: No cervical adenopathy. Skin: General: Skin is warm. Findings: Erythema (Along submental region) present. Neurological: Mental Status: She is alert. DIAGNOSTIC RESULTS RADIOLOGY (Per Emergency Physician): Interpretation per the Radiologist below, if available at the time of this note: CT soft tissue neck w IV contrast Final Result 1. Status post extraction of left lower tooth number 20, previously seen fluid collection a little larger and better defined, may represent an abscess. Report Dictated on Electronically Signed By: Branden Linares MD Electronically Signed Date/Time: 12/31/2023 7:56 PM EDT LABS: Labs Reviewed CBC WITH AUTO DIFFERENTIAL - Abnormal Result Value Auto WBC 11.3 (*) RBC 5.02 Hemoglobin 15.4 Hematocrit 46.5 MCV 92.6 MCH 30.7 MCHC 33.1 RDW 12.5 Platelets 405 MPV 9.7 nRBC 0.0 Neutrophils Relative 86.5 (*) Lymphocytes Relative 6.4 (*) Monocytes Relative 5.0 Eosinophils Relative 0.8 Basophils Relative 0.4 Immature Grans % 0.9 Neutrophils Absolute 9.8 (*) Lymphocytes Absolute 0.7 (*) Monocytes Absolute 0.6 Eosinophils Absolute 0.1 Basophils Absolute 0.1 Immature Grans Absolute 0.1 (*) BASIC METABOLIC PANEL - Abnormal SODIUM 141 POTASSIUM 3.4 (*) CHLORIDE 106 CARBON DIOXIDE 26 UREA NITROGEN 30 (*) CREATININE 0.91 GLUCOSE 123 (*) CALCIUM 9.3 ANION GAP 9 eGFR 63.5 All other labs were within normal range or not returned as of this dictation. EMERGENCY DEPARTMENT COURSE and DIFFERENTIAL DIAGNOSIS/MDM: Vitals: Vitals: 12/31/23 1723 12/31/23 1729 12/31/23195412/31/232241 BP: 131/79 (!) 157/77 (!) 151/79 BP Location: Left arm Left arm Patient Position: Sitting Sitting Pulse: 64 73 Resp: 18 15 Temp: 36.5 C (97.7 F) 36.3 C (97.4 F) TempSrc: Oral Oral SpO2: 94% 98% Weight: 83.9 kg (185 lb) Height: 1.575 m (5' 2") The patient presented with a chief complaint of vomiting. The differential diagnosis associated with this patient's presentation includes submental cellulitis versus submental abscess versus Austen angina. Our workup consisted of ordering/reviewing CT neck soft tissue, BMP, CBC, EKG. Diagnoses as of 12/31/232303 Submental abscess External records reviewed: Inpatient notes previous admission on 12/28/2023 Diagnostics interpreted by me: EKG(s) no acute ischemic changes Discussions with other clinicians: Admitting team [facility] Chronic conditions impacting care: none Social determinants of health affecting care: none ED Medications managed: Medications lactated ringers bolus 500 mL (0 mL IntraVENous Stopped 12/31/23 193) ampicillin-sulbactam (Unasyn) 3,000 mg in sodium chloride 0.9 % 100 mL IVPB (Add-Partlow) (0 mg IntraVENous Stopped 12/31/232018) ondansetron (Zofran) injection 4 mg (4 mg IntraVENous Given 12/31/23 1845) iopamidol (Isovue-370) 76 % injection 75 mL (75 mL IntraVENous Given 12/31/231942) Prescription drugs considered: Antibiotics Unasyn and Antiemetics Zofran PROCEDURES: Unless otherwise noted below, none Procedures FINAL IMPRESSION 1. Submental abscess DISPOSITION Admit 12/31/2023 09:45:03 PM PATIENT REFERRED TO: No follow-up provider specified. DISCHARGE MEDICATIONS: New Prescriptions No medications on file (Comment: Please note this report has been produced using speech recognition software and may contain errors related to that system including errors in grammar, punctuation, and spelling, as well as words and phrases that may be inappropriate. If there are any questions or concerns please feel free to contact the dictating provider for clarification.) James Avalos MD (electronically signed) Emergency Medicine Provider James Avalos MD Resident 12/31/23 0140 [facility] 12-31-2023 Physician Emergency department Note Emergency Department Encounter [facility] Patient: Diana Kohli : 1940 Date of Evaluation: 12/31/2023 ED Supervising Physician: Joes Gilmore DO I personally evaluated Diana Kohli and made/approved the management plan and take responsibility for the patient management. This will serve as my Supervisory note and shared attestation. I did perform a substantive portion of the visit including all aspects of the Medical Decision Making. I wore appropriate PPE for the entirety of this encounter. In brief, Diana Kohli is a 83 y.o. that presents to the emergency department with chief complaint of continued swelling to under her chin area. Recently admitted for the same. Treated with antibiotics and steroids and also tooth extraction which was likely contributing to the infection. Patient states she has been nauseous and vomiting and has continued difficulty swallowing due to the swelling under her chin. Focused exam: Cellulitis of the submental space with associated fluctuance. No spontaneous purulent drainage. Currently tolerating oral secretions. Phonation is slightly altered by the swelling. No neck stiffness. Brief ED course/MDM: CT was repeated because of strong suspicion for abscess developing especially with continued prominent soft tissue swelling of the submental area. Currently no hard signs of any airway compromise. Suitable for floor for continued antibiotics and ENT consultation. Suspect patient will need incision and drainage in the operating room based on the depth of the abscess and the location of it. All diagnostic, treatment, and disposition decisions were made by myself in conjunction with the Resident. I also supervised littlejohn portions of any procedures performed by the Resident. For all further details of the patient's emergency department visit, please see their documentation. (Comment: Please note this report has been produced using speech recognition software and may contain errors related to that system including errors in grammar, punctuation, and spelling, as well as words and phrases that may be inappropriate. If there are any questions or concerns please feel free to contact the dictating provider for clarification.) Jose Gilmore DO [facility] Jose Gilmore DO 01/03/24 0821 [facility] 12-30-[address] Mccormick secure message to return call to patient's niece for clarity of steroids that she picked up at the pharmacy. Patient received 15 total pills but niece feels she should have 30 total pills. Niece is Martha [phone]. [facility] 12-30-[address] Mccormick secure message to return call to patient's niece for clarity of steroids that she picked up at the pharmacy. Patient received 15 total pills but niece feels she should have 30 total pills. Niece is Martha [phone]. documented in this encounter [facility] 12-30-2023 Plan of care note The patient is Moderately Stable - Low risk of patient condition declining or worsening The patient's goals for the shift include discharge. The clinical goals for the shift include maintain comfort and safety Over the shift, the patient did make progress toward the following goals and was discharged to home. [facility] 12-30-2023 Miscellaneous Notes The patient is Moderately Stable - Low risk of patient condition declining or worsening The patient's goals for the shift include discharge. The clinical goals for the shift include maintain comfort and safety Over the shift, the patient did make progress toward the following goals and was discharged to home. Care Managment Initial Assessment Date: 12/29/2023 Patient Name: Diana Kohli : 1940 Patient Information Source of Information: Patient Cognition/Language: WFL - Within Functional Limits Permission given to speak with patient telephone claims representative/caregiver as indicated: Confirmation of Payer with patient/family: Yes Payer Name: [employer] [place] [employer] [place]: Confirmation of Primary Care Physician: Confirmed PCP Name: Dr. Walker Seen in last 2 years?: Yes Primary Caregiver: Self If assistance needed, confirmed caregiver ready, willing and able to care for patient at discharge: Confirmed with: Living Arrangements Current Residence: House Number of Floors 1 Number of Entry Steps: 3 Bed/Bath Levels: Both first floor Facility: Facility Name: Plan to Return: Lives with: Alone Support Systems: Family members Activities of Daily Living Ambulation: Independent Bathing/Dressing: Independent Elimination/Continence/Toileting: Independent Feeding: Independent Who Assists with Activities of Daily Living: Instrumental Activities of Daily Living Prescription Coverage: Yes [facility] Used[facility] Medication Management: Independent Transportation/Shopping: Independent Transportation Mode: Car Needs Assistance with Transportation at Discharge: No, Comments (niece or friend transport) Meal Preparation: Independent Laundry/Cleaning: Independent Finances/Bill Paying: Independent Communication: Independent Types of Care Services/Equipment Utilized Care Services: Dialysis Type: NA Durable Medical Equipment: Walker DME Provider: insurance Patient's Goal/Discharge Plan Patient expects to be discharged to: home with home care and out pt follow up, possible home O2 eval Discharge Planning Actions: Continue to follow Patient's Choice Rights and [employer] and Collaborative Relationships Disclosed as Indicated for Post-Acute Care: Interdisciplinary Team Engagement: Home Health Care Social Work Referral for: Additional Information: TCC met with pt at bedside, introduced self and role. Pt admitted with cellulitis of submental space. On 2 L of O2 NC, none at baseline, may need home O2 eval prior to discharge, bedside RN to wean as able. Blood cultures times 2 started, will follow. IV Unasyn Q6. NPO for ENT consult. Pt denies any DME needs for home. Plan is home with possible home O2, out pt follow up and niece transport. Pt is agreeable to plan and has no questions at this time. TCC will follow. Julia Owens RN Problem: Pain - Adult Goal: Verbalizes/displays adequate comfort level or baseline comfort level Outcome: Progressing Problem: Safety - Adult Goal: Free from fall injury Outcome: Progressing The patient is Moderately Stable - Low risk of patient condition declining or worsening The patient's goals for the shift include The clinical goals for the shift include maintain comfort and safety documented in this encounter [facility] 12-30-2023 Hospital course Narrative Discharge Summary Diana Kohli : 1940 ADMIT DATE: 12/28/2023 DISCHARGE DATE: 12/30/2023 PRIMARY CARE PHYSICIAN: Charlene Walker VISIT STATUS: Admission CODE STATUS: Full Code DISCHARGE DIAGNOSES: Principal Problem: Cellulitis of submental space HOSPITAL COURSE: Diana is a 83 y.o. female with past medical history below who presented to ED with c/o worsening swelling to the floor of mouth and lower chin area over the past one week. Initially attributed to dental infection but when she went to the dentist today to have teeth extracted, the swelling was too severe and they recommended that she go to the emergency room for IV antibiotics. Currently reports pain with swallowing and some change in voice but denies any significant hoarseness, drooling, neck stiffness, high fevers, rash, nausea, or vmiting. CT soft tissue neck reviewed revealing 4 cm phlegmon. Patient was admitted for evaluation - failed OP treatment. ENT evaluated patient, likely cellulitis with inflammatory phlegmon or developing abscess. recommended dental consult, IV antibiotics, and IV decadron. ENT reccommended for intervention from their service. Dental saw patient and extracted teeth #19 and #20. She had symptomatic improvement but with contiued swelling and tolerated PO. She was DC home SIGNIFICANT DIAGNOSTIC STUDIES: CT soft tissue neck CONSULTANTS: ENT Dental RECOMMENDED NEXT STEPS: Follow up OP DISCHARGE MEDICATIONS: Medication List START taking these medications amoxicillin-clavulanate 875-125 MG tablet Commonly known as: Augmentin Take 1 tablet by mouth 2 times daily for 10 days. oxyCODONE-acetaminophen 5-325 MG tablet Commonly known as: Percocet Take 1 tablet by mouth every 6 hours as needed for moderate pain (4-6) or severe pain (7-10) for up to 7 days. predniSONE 10 MG tablet Commonly known as: Deltasone Take 5 tablets (50 mg) by mouth every other day for 2 days, THEN 4 tablets (40 mg) every other day for 2 days, THEN 3 tablets (30 mg) every other day for 2 days, THEN 2 tablets (20 mg) every other day for 2 days, THEN 1 tablet (10 mg) every other day for 2 days. Start taking on: December 30, 2023 CONTINUE taking these medications amLODIPine 5 MG tablet Commonly known as: Norvasc aspirin 81 MG EC tablet cholecalciferol 25 MCG (1000 UT) capsule Commonly known as: Vitamin D-3 levothyroxine 112 MCG tablet Commonly known as: Synthroid, Levoxyl meclizine 25 MG tablet Commonly known as: Antivert Where to Get Your Medications These medications were sent to [id number] - [place], [place] - [address] [facility] [address] [place] [id number] amoxicillin-clavulanate 875-125 MG tablet predniSONE 10 MG tablet You can get these medications from any pharmacy Bring a paper prescription for each of these medications oxyCODONE-acetaminophen 5-325 MG tablet DIET: Adult diet Regular ACTIVITY: No restriction. COMPLEXITY OF FOLLOW UP: [] Moderate Complexity: follow up within 7-14 calendar days (44463) [x] Severe Complexity: follow up within 7 calendar days (42773) FOLLOW UP TESTING, PENDING RESULTS OR REFERRALS AT TRANSITIONAL CARE VISIT: [] Yes [x] No PENDING STUDIES: none DISPOSITION: Home FACILITY/HOME CARE AGENCY NAME: N/A Follow up with No follow-up provider specified. 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 FOLLOW UP QUESTIONS FOR MA/SW: 1. Did you get medications filled and taking them as instructed from discharge? 2. Are you following your discharge instructions from your hospital stay? 3. Please confirm patient is scheduled for a follow up appointment within the above time frame. DISCHARGE TIME: > 30 minutes SIGNED: Jose L Mccormick MD 12/30/2023, 1:13 PM documented in this encounter [facility] 12-30-2023 Telephone encounter Note S: Patient being discharged from hospital needing JARRETT appointment with PCP B: 12/28/23-12/30/23: Admission Cellulitis of submental space A: - R: Office of Dr Walker called, unable to leave message or schedule appointment. Advised patient followup with office Monday during office hours. Reason for Disposition Requesting regular office appointment Protocols used: Information Only Call - No [id number] 12-30-2023 Miscellaneous Notes S: Patient being discharged from hospital needing JARRETT appointment with PCP B: 12/28/23-12/30/23: Admission Cellulitis of submental space A: - R: Office of Dr Walker called, unable to leave message or schedule appointment. Advised patient followup with office Monday during office hours. Reason for Disposition Requesting regular office appointment Protocols used: Information Only Call - No [id number] documented in this encounter [facility] 12-30-2023 History of Present illness Narrative Images from the original note were not included. Hospitalist Progress Note 12/30/2023 Subjective: Admit Date: 12/28/2023 PCP: Charlene Walker MD Room#: [id number]/[id number] A BRIEF HOSPITAL COURSE: Diana is a 83 y.o. female with past medical history below who presented to ED with c/o worsening swelling to the floor of mouth and lower chin area over the past one week. Initially attributed to dental infection but when she went to the dentist today to have teeth extracted, the swelling was too severe and they recommended that she go to the emergency room for IV antibiotics. Currently reports pain with swallowing and some change in voice but denies any significant hoarseness, drooling, neck stiffness, high fevers, rash, nausea, or vmiting. CT soft tissue neck reviewed revealing 4 cm phlegmon. Patient was admitted for evaluation - failed OP treatment. Interval History: 12/28: ENT evaluated patient today - recommended dental consult, IV antibiotics, and IV decadron. ENT recommended no intervention from their service. Patient c/o mouth pain and difficulty swallowing. Case and plan discussed with patient and bedside nurse. All questions answered. 12/29: Patient went for tooth extraction 12/28 (#19 and #20). No complications. Patient continues to have pain, but symptoms have improved. She is tolerating PO. Adult diet Regular 24HR INTAKE/OUTPUT: Intake/Output Summary (Last 24 hours) at 12/30/2023 1258 Last data filed at 12/30/2023 0738 Gross per 24 hour Intake 350 ml Output -- Net 350 ml Past Medical History: Past Medical History: Diagnosis Date Disease of thyroid gland Hypertension LABS: CBC: Recent Labs 12/28/23199912/29/23 0453 WBC 14.2* 12.9* RBC 4.90 4.70 HGB 15.1 14.8 HCT 45.8 45.0 MCV 93.5 95.7 RDW 12.5 12.4 PLT 320 307 BMP: Recent Labs 12/28/23199912/29/23452 NA 139 139 K 4.0 3.6 CL 106 106 CO2 24 26 BUN 23* 19* CREATININE 1.09* 0.89 GLUCOSE 105* 105* CALCIUM 9.8 9.2 ANIONGAP 9 6 LIVER PROFILE: Recent Labs 12/28/231999 AST 37 ALT 37* BILITOT 0.8 ALKPHOS 145* PROT 7.5 PT/INR: Recent Labs 12/29/23452 PROTIME 10.6 INR 1.0 CARDIAC ENZYMES: No results for input(s): "TROPONINI" in the last 72 hours. Procalcitonin: No results found for: PROCAL COVID-19 PCR: No results for input(s): "COVID19" in the last 72 hours. Objective: Vitals: BP (!) 162/68 (BP Location: Right arm, Patient Position: Lying) Pulse 51 Temp 36.2 C (97.2 F) (Temporal) Resp 18 Ht 5' 2" (1.575 m) Wt 185 lb 8 oz (84.1 kg) SpO2 95% BMI 33.93 kg/m Pulse Ox: SpO2 Av % Min: 92 % Max: 95 % Supplemental O2: O2 Flow Rate (L/min): 2 L/min Physical Exam Vitals reviewed. Constitutional: General: She is not in acute distress. Comments: Edema, chin (improved) HENT: Mouth/Throat: Comments: Tooth extreaction Neck: Comments: Edema and tenderness chin Cardiovascular: Rate and Rhythm: Normal rate and regular rhythm. Pulmonary: Effort: Pulmonary effort is normal. Breath sounds: Normal breath sounds. No wheezing. Neurological: General: No focal deficit present. Mental Status: She is alert and oriented to person, place, and time. Medications: Scheduled PRN [Held by provider] amLODIPine, 5 mg, Oral, Daily ampicillin-sulbactam, 3,000 mg, IntraVENous, q6h [Held by provider] aspirin, 81 mg, Oral, Daily cholecalciferol, 1,000 Units, Oral, Daily dexAMETHasone, 8 mg, IntraVENous, q24h enoxaparin, 40 mg, SubCUTAneous, Daily levothyroxine, 112 mcg, Oral, qAM AC PRN medications: acetaminophen OR acetaminophen, meclizine, naloxone, ondansetron ODT OR ondansetron, polyethylene glycol (PEG) 3350 Continuous Assessment Data: NA (LOW: 2x CAT1 or independent historian MOD: 3x CAT1 or 1x CAT3 EXTENSIVE: 3x CAT1 and 1x CAT3) Acute, acute on chronic, unstable/uncontrolled chronic problems/diagnoses: Cellulitis with inflammatory phlegmon Dental infeciton Stable chronic problems affecting care, new non-acute diagnoses: Hypothyroidism HTN Plan As a result of the above findings & factors, the following mgmt was pursued: - Unasyn PO on DC - dental consult - IV decadron change to PO on DC - ok for diet - hold ASA - resume on DC - hold BP meds - resume on DC - am labs, replace lytes prn - PT/OT/CM/SW - delirium precautions: increase activity - DVT prophylaxis: SCDs and encourage ambulation Complexity: Acute illness with systemic symptoms (MOD). Risk: N/A Advance Directive: Full Code Anticipated Discharge - Date - 12/29 - Location - Home - Pending the following - dental consult, clinical improement Total time spent (which include face to face and non face to face encounters) : 45 minutes Toxic drug monitoring/narrow therapeutic index drug monitoring : # Drug name : N/A # Route administered : N/A # Method of monitoring : N/A Extended Emergency Contact Information Primary Emergency Contact: Hamilton (POA)Piper Mobile Relation: Louis Mccormick MD Division of Hospitalist Medicine [employer] Nutrition rescreen completed. Chart reviewed. Patient to be monitored and followed by the diet natural gas technician. Nurse messaged if patient could be in dental clinic by 1430 . Primary on the floor verbally allowed patient to be off tele. Nurse transported the patient to the dental clinic at 1430. Images from the original note were not included. Hospitalist Progress Note 12/29/2023 Subjective: Admit Date: 12/28/2023 PCP: Charlene Walker MD Room#: [id number] A BRIEF HOSPITAL COURSE: Diana is a 83 y.o. female with past medical history below who presented to ED with c/o worsening swelling to the floor of mouth and lower chin area over the past one week. Initially attributed to dental infection but when she went to the dentist today to have teeth extracted, the swelling was too severe and they recommended that she go to the emergency room for IV antibiotics. Currently reports pain with swallowing and some change in voice but denies any significant hoarseness, drooling, neck stiffness, high fevers, rash, nausea, or vmiting. CT soft tissue neck reviewed revealing 4 cm phlegmon. Patient was admitted for evaluation - failed OP treatment. Interval History: 12/28: ENT evaluated patient today - recommended dental consult, IV antibiotics, and IV decadron. Patient c/o mouth pain and difficulty swallowing. Case and plan discussed with patient and bedside nurse. All questions answered. Adult diet Regular 24HR INTAKE/OUTPUT: Intake/Output Summary (Last 24 hours) at 12/29/2023 1323 Last data filed at 12/29/2023 1009 Gross per 24 hour Intake 200 ml Output -- Net 200 ml Past Medical History: Past Medical History: Diagnosis Date Disease of thyroid gland Hypertension LABS: CBC: Recent Labs 12/28/23199912/29/23 0453 WBC 14.2* 12.9* RBC 4.90 4.70 HGB 15.1 14.8 HCT 45.8 45.0 MCV 93.5 95.7 RDW 12.5 12.4 PLT 320 307 BMP: Recent Labs 12/28/23199912/29/23 0453 NA 139 139 K 4.0 3.6 CL 106 106 CO2 24 26 BUN 23* 19* CREATININE 1.09* 0.89 GLUCOSE 105* 105* CALCIUM 9.8 9.2 ANIONGAP 9 6 LIVER PROFILE: Recent Labs 12/28/231999 AST 37 ALT 37* BILITOT 0.8 ALKPHOS 145* PROT 7.5 PT/INR: Recent Labs 12/29/23452 PROTIME 10.6 INR 1.0 CARDIAC ENZYMES: No results for input(s): "TROPONINI" in the last 72 hours. Procalcitonin: No results found for: PROCAL COVID-19 PCR: No results for input(s): "COVID19" in the last 72 hours. Objective: Vitals: BP 112/63 (BP Location: Left arm, Patient Position: Sitting) Pulse 71 Temp 36.5 C (97.7 F) (Temporal) Resp 18 Ht 5' 2" (1.575 m) Wt 185 lb 8 oz (84.1 kg) SpO2 92% BMI 33.93 kg/m Pulse Ox: SpO2 Av.3 % Min: 92 % Max: 97 % Supplemental O2: O2 Flow Rate (L/min): 2 L/min Physical Exam Vitals reviewed. Constitutional: General: She is not in acute distress. HENT: Mouth/Throat: Comments: Tooth decay Neck: Comments: Edema and tenderness chin Cardiovascular: Rate and Rhythm: Normal rate and regular rhythm. Pulmonary: Effort: Pulmonary effort is normal. Breath sounds: Normal breath sounds. No wheezing. Neurological: General: No focal deficit present. Mental Status: She is alert and oriented to person, place, and time. Medications: Scheduled PRN ampicillin-sulbactam, 3,000 mg, IntraVENous, q6h dexAMETHasone, 8 mg, IntraVENous, q24h enoxaparin, 40 mg, SubCUTAneous, Daily PRN medications: acetaminophen OR acetaminophen, morphine sulfate, naloxone, ondansetron ODT OR ondansetron, polyethylene glycol (PEG) 3350 Continuous Assessment Data: NA (LOW: 2x CAT1 or independent historian MOD: 3x CAT1 or 1x CAT3 EXTENSIVE: 3x CAT1 and 1x CAT3) Acute, acute on chronic, unstable/uncontrolled chronic problems/diagnoses: Cellulitis with inflammatory phlegmon or developing abscess Stable chronic problems affecting care, new non-acute diagnoses: Hypothyroidism HTN Plan As a result of the above findings & factors, the following mgmt was pursued: - Unasyn - dental consult - IV decadron - ok for diet - hold ASA - hold BP meds - am labs, replace lytes prn - PT/OT/CM/SW - delirium precautions: increase activity - DVT prophylaxis: SCDs and encourage ambulation Complexity: Acute illness with systemic symptoms (MOD). Risk: N/A Advance Directive: Full Code Anticipated Discharge - Date - 12/29 to 12/30 - Location - Home - Pending the following - dental consult, clinical improement Total time spent (which include face to face and non face to face encounters) : 55 minutes Toxic drug monitoring/narrow therapeutic index drug monitoring : # Drug name : N/A # Route administered : N/A # Method of monitoring : N/A Extended Emergency Contact Information Primary Emergency Contact: Piper Hamilton (POA) Mobile Relation: Louis Mccormick MD Division of Hospitalist Medicine [facility] documented in this encounter [facility] 12-29-2023 Note Formatting of this n ote might be different from the original. Care Managment Initial Assessment Date: 12/29/2023 Patient Name: Diana Kohli : 1940 Patient Information Source of Information: Patient Cognition/Language: WFL - Within Functional Limits Permission given to speak with patient telephone claims representative/caregiver as indicated: Confirmation of Payer with patient/family: Yes Payer Name: health [place] [employer] [place] [employer] [place]: Confirmation of Primary Care Physician: Confirmed PCP Name: Dr. Walker Seen in last 2 years?: Yes Primary Caregiver: Self If assistance needed, confirmed caregiver ready, willing and able to care for patient at discharge: Confirmed with: Living Arrangements Current Residence: House Number of Floors 1 Number of Entry Steps: 3 Bed/Bath Levels: Both first floor Facility: Facility Name: Plan to Return: Lives with: Alone Support Systems: Family members Activities of Daily Living Ambulation: Independent Bathing/Dressing: Independent Elimination/Continence/Toileting: Independent Feeding: Independent Who Assists with Activities of Daily Living: Instrumental Activities of Daily Living Prescription Coverage: Yes [facility] Medication Management: Independent Transportation/Shopping: Independent Transportation Mode: Car Needs Assistance with Transportation at Discharge: No, Comments (niece or friend transport) Meal Preparation: Independent Laundry/Cleaning: Independent Finances/Bill Paying: Independent Communication: Independent Types of Care Services/Equipment Utilized Care Services: Dialysis Type: NA Durable Medical Equipment: Walker DME Provider: insurance Patient's Goal/Discharge Plan Patient expects to be discharged to: home with home care and out pt follow up, possible home O2 eval Discharge Planning Actions: Continue to follow Patient's Choice Rights and [employer] and Collaborative Relationships Disclosed as Indicated for Post-Acute Care: Interdisciplinary Team Engagement: Home Health Care Social Work Referral for: Additional Information: TCC met with pt at bedside, introduced self and role. Pt admitted with cellulitis of submental space. On 2 L of O2 NC, none at baseline, may need home O2 eval prior to discharge, bedside RN to wean as able. Blood cultures times 2 started, will follow. IV Unasyn Q6. NPO for ENT consult. Pt denies any DME needs for home. Plan is home with possible home O2, out pt follow up and niece transport. Pt is agreeable to plan and has no questions at this time. TCC will follow. Julia Owens RN [facility] 12-29-2023 Note Formatting of this n ote might be different from the original. Care Managment Initial Assessment Date: 12/29/2023 Patient Name: Diana Kohli : 1940 Patient Information Source of Information: Patient Cognition/Language: WFL - Within Functional Limits Permission given to speak with patient telephone claims representative/caregiver as indicated: Confirmation of Payer with patient/family: Yes Payer Name: [employer] [place] [employer]: Confirmation of Primary Care Physician: Confirmed PCP Name: Dr. Walker Seen in last 2 years?: Yes Primary Caregiver: Self If assistance needed, confirmed caregiver ready, willing and able to care for patient at discharge: Confirmed with: Living Arrangements Current Residence: House Number of Floors 1 Number of Entry Steps: 3 Bed/Bath Levels: Both first floor Facility: Facility Name: Plan to Return: Lives with: Alone Support Systems: Family members Activities of Daily Living Ambulation: Independent Bathing/Dressing: Independent Elimination/Continence/Toileting: Independent Feeding: Independent Who Assists with Activities of Daily Living: Instrumental Activities of Daily Living Prescription Coverage: Yes [facility] Medication Management: Independent Transportation/Shopping: Independent Transportation Mode: Car Needs Assistance with Transportation at Discharge: No, Comments (niece or friend transport) Meal Preparation: Independent Laundry/Cleaning: Independent Finances/Bill Paying: Independent Communication: Independent Types of Care Services/Equipment Utilized Care Services: Dialysis Type: NA Durable Medical Equipment: Walker DME Provider: insurance Patient's Goal/Discharge Plan Patient expects to be discharged to: home with home care and out pt follow up, possible home O2 eval Discharge Planning Actions: Continue to follow Patient's Choice Rights and [employer] and Collaborative Relationships Disclosed as Indicated for Post-Acute Care: Interdisciplinary Team Engagement: Home Health Care Social Work Referral for: Additional Information: TCC met with pt at bedside, introduced self and role. Pt admitted with cellulitis of submental space. On 2 L of O2 NC, none at baseline, may need home O2 eval prior to discharge, bedside RN to wean as able. Blood cultures times 2 started, will follow. IV Unasyn Q6. NPO for ENT consult. Pt denies any DME needs for home. Plan is home with possible home O2, out pt follow up and niece transport. Pt is agreeable to plan and has no questions at this time. TCC will follow. Julia Owens RN [facility] 12-29-2023 Consult note Associated Order (s): IP CONSULT TO OTOLARYNGOLOGY Images from the original note were not included. [facility] Otolaryngology Head & Neck Surgery Roverto Rebollar D.O [address] [place] [address] Dept: [phone] Dept Loc: [phone] Assessment and Recommendations: Submental Cellulitis dental origin Patient seen today for submental cellulitis secondary to dental origin with failed outpatient antibiotic therapy. CT soft tissue neck reviewed revealing 4 cm phlegmon, no ring enhancing abscess therefore no acute surgical ENT intervention warranted at this time. Continue treatment with IV antibiotics and would recommend adding IV Decadron as well. Ok to advance diet to soft. Consider inpatient dental evaluation. I spent total time 55 minutes reviewing previous notes, test results, and face to face with the patient discussing the diagnosis and importance of compliance with the treatment plan as well as documenting on the day of the visit. F COMPLAINT: submental cellulitis Reason for Admission: same History Obtained From: patient; EMR HISTORY OF PRESENT ILLNESS: Diana Kohli is a 83 y.o. female admitted for evaluation of swelling and redness under chin and floor of mouth that initially started a week ago. Reports was seen outpatient last week on Monday by dentistry for increased dental pain to lower central incisors. Apparently was told there was active infection and was placed on course of antibiotics and decision to pull the teeth was postponed until infection resolved. She woke up Monday last week with swelling and pain. Denies prior infection similar to this. She is having some trismus but no shortness of breath, airway obstruction, difficulty tolerating secretions. She is on Unasyn. Not diabetic. NPO. Mild leukocytosis. Afebrile. CT soft tissue neck revealed 4 cm heterogeneous area of hypoattenuation in the anterior floor mouth involving the sublingual spaces, with spread to the submental space. This is most likely cellulitis with inflammatory phlegmon or developing abscess, potentially arising from either the left sublingual gland or an odontogenic source such as the left second mandibular premolar. No associated airway compromise. Past Medical History: Past Medical History: Diagnosis Date Disease of thyroid gland Hypertension Past Surgical History: Past Surgical History: Procedure Laterality Date CHOLECYSTECTOMY Medications Prior to Admission: Medications Prior to Admission Medication Sig Dispense Refill Last Dose amLODIPine (Norvasc) 5 MG tablet Take 5 mg by mouth before bedtime. aspirin 81 MG EC tablet Take 81 mg by mouth daily. cholecalciferol (Vitamin D-3) 25 MCG (1000 UT) capsule Take 1,000 Units by mouth daily. levothyroxine (Synthroid, Levoxyl) 112 MCG tablet Take 112 mcg by mouth every morning (before breakfast). meclizine (Antivert) 25 MG tablet Take 12.5 mg by mouth in the morning. Current Medication List: Current Facility-Administered Medications Medication Dose Route Frequency Provider Last Rate Last Admin acetaminophen (Tylenol) tablet 650 mg 650 mg Oral q6h PRN Mani Sanchez MD 650 mg at 12/29/23 0901 Or acetaminophen (Tylenol) suppository 650 mg 650 mg Rectal q6h PRN Mani Sanchez MD ampicillin-sulbactam (Unasyn) 3,000 mg in sodium chloride 0.9 % 100 mL IVPB (Add-Partlow) 3,000 mg IntraVENous q6h Mani Sanchez MD Stopped at 12/29/23 0931 enoxaparin (Lovenox) syringe 40 mg 40 mg SubCUTAneous Daily Mani Sanchez MD 40 mg at 12/29/23 0902 morphine injection 2 mg 2 mg IntraVENous q4h PRN Mani Sanchez MD 2 mg at 12/29/23 0455 naloxone (Narcan) injection 0.4 mg 0.4 mg IntraVENous q5 min PRN Mani Sanchez MD ondansetron ODT (Zofran-ODT) disintegrating tablet 4 mg 4 mg Oral q8h PRN Mani Sanchez MD Or ondansetron (Zofran) injection 4 mg 4 mg IntraVENous q6h PRN Mani Sanchez MD polyethylene glycol (PEG) 3350 (Miralax) packet 17 g 17 g Oral Daily PRN Mani Sanchez MD Allergies: No Known Allergies Social History: TOBACCO: Social History Tobacco Use Smoking Status Every Day Packs/day: 1 Types: Cigarettes Start date: 12/18/2007 Smokeless Tobacco Never ETOH: Social History Substance and Sexual Activity Alcohol Use Not Currently DRUGS: Social History Substance and Sexual Activity Drug Use Not Currently Family History: No family history on file. REVIEW OF SYSTEMS: 14 point review of systems completed and all negative except as noted in HPI PHYSICAL EXAM: Physical BP 144/67 (BP Location: Right arm, Patient Position: Lying) Pulse 70 Temp 36.5 C (97.7 F) (Temporal) Resp 18 Ht 5' 2" (1.575 m) Wt 185 lb 8 oz (84.1 kg) SpO2 93% BMI 33.93 kg/m General: Patient is not in acute distress. Appearance: Patient is well-developed. Eyes: Conjunctiva/sclera: Conjunctivae normal. Pupils: Pupils are equal, round, and reactive to light. HENT: Jaw: No trismus. Nose: No nasal deformity, mucosal edema or rhinorrhea. Mouth: sublingual swelling. Poor dentition. Foul odor from oral cavity. Pharynx: Uvula midline. No oropharyngeal exudate or uvula swelling. Tonsils: No tonsillar exudate. No abnormal masses or lesions Thyroid: No significant thyromegaly. Trachea: Trachea and phonation normal. No tracheal deviation. Pulmonary: Effort: Pulmonary effort is normal. No respiratory distress. Breath sounds: No stridor. Musculoskeletal: Head: Normocephalic and atraumatic. Neck: diffuse submandibular swelling, induration, erythema. Skin: General: Skin is warm and dry. Findings: No erythema or rash. Neurological: Cranial Nerves: No cranial nerve deficit. Sensory: No sensory deficit. Coordination: Coordination normal. Psychiatric: Mood and Affect: Mood and affect normal. Cognition and Memory: Cognition and memory normal. DATA: Latest Reference Range & Units 12/28/23 21:44 12/29/23 01:02 12/29/23 02:34 12/29/23 04:53 SODIUM 135 - 145 mmol/L 139 POTASSIUM 3.5 - 5.1 mmol/L 3.6 CHLORIDE 98 - 107 mmol/L 106 Carbon Dioxide (CO2) 22 - 30 mmol/L 26 ANION GAP 3 - 13 mmol/L 6 Urea Nitrogen (BUN) 7 - 17 mg/dL 19 (H) Creatinine 0.52 - 1.04 mg/dL 0.89 eGFR >60.0 mL/min/1.73m*2 65.2 GLUCOSE 70 - 100 mg/dL 105 (H) CALCIUM 8.4 - 10.4 mg/dL 9.2 Auto WBC 3.6 - 10.7 10*3/uL 12.9 (H) RBC 3.80 - 5.20 10*6/uL 4.70 HEMOGLOBIN 11.7 - 16.0 g/dL 14.8 HEMATOCRIT 35.0 - 47.0 % 45.0 MCV 77.0 - 99.0 fL 95.7 MCH 26.0 - 34.0 pg 31.5 MCHC 30.5 - 36.0 % 32.9 RDW 11.5 - 15.0 % 12.4 Platelets 140 - 440 10*3/uL 307 Mean Platelet Volume (MPV) 9.0 - 12.7 fL 9.4 Neutrophils Relative 38.0 - 82.0 % 79.9 Lymphocytes Relative 15.0 - 45.0 % 10.9 (L) Monocytes Relative 5.0 - 13.0 % 7.9 Eosinophils Relative 0.0 - 6.0 % 0.5 Basophils Relative 0.0 - 2.0 % 0.3 ABSOLUTE LYMPHOCYTES - QUEST 1.0 - 4.3 10*3/uL 1.4 Monocytes Absolute 0.0 - 0.9 10*3/uL 1.0 (H) Eosinophils Absolute 0.0 - 0.5 10*3/uL 0.1 Basophils Absolute 0.0 - 0.2 10*3/uL 0.0 nRBC 0.0 - 2.0 /100 WBCs 0.0 Protime 9.0 - 12.0 s 10.6 INR 0.9 - 1.1 1.0 APTT 20.0 - 30.5 s 28.6 SARS-COV-2 ANTIGEN Rpt BLOOD CULTURE Rpt Rpt CT SOFT TISSUE NECK W IV CONTRAST Rpt Immature Grans Absolute <0.1 10*3/uL 0.1 (H) Immature Grans % 0.0 - 2.0 % 0.5 Absolute Neutrophils 1.8 - 7.5 10*3/uL 10.3 (H) SARS-CoV-2 Antigen Negative Negative (H): Data is abnormally high (L): Data is abnormally low Rpt: View report in Results Review for more information IMAGING: Narrative & Impression [facility]LI [facility] 1940 [id number] Exam Date/Time: 12/28/2023 21:46 Procedure: CT SOFT TISSUE NECK W IV CONTRAST Ordering Provider: GILMORE VISHNU Reason For Exam: strong suspicion for submental abscess/ludwigs angina EXAMINATION: CT SOFT TISSUE NECK W IV CONTRAST CLINICAL HISTORY: strong suspicion for submental abscess/ludwigs angina COMPARISON: None TECHNIQUE: Thin axial images were obtained through the neck with intravenous contrast. 2D sagittal and coronal reconstructions were obtained from the axial data. Dose reduction was employed with automated exposure control. FINDINGS: Aerodigestive tract: There is a hypoechoic collection extending from the sublingual spaces bilaterally into the submental space measuring 4.2 x 4.5 x 4 cm. This area of hypoattenuation is heterogeneous with ill-defined margins and areas of mild peripheral enhancement. This finding could arise from either the left sublingual gland or an odontogenic source such as the left second mandibular premolar which has a carious lesion and 7 mm periapical cyst or abscess. There is no significant extension of this infectious process into the submandibular spaces or posteriorly within the floor of mouth. There is no airway compromise or laryngeal edema. No retropharyngeal collection. Lymph nodes: No pathologically enlarged, necrotic, or otherwise abnormal lymph nodes. Major salivary glands: Normal. Thyroid gland: Normal. Carotid space: Patent bilateral extracranial carotid and jugular systems. Atherosclerotic calcifications at the carotid bifurcations. There is also dense calcified plaque in the carotid siphons and intracranial left vertebral artery. Paranasal sinuses, middle ears, mastoids: Clear. Brain and orbits: Small remote left cerebellar infarct. Generalized prequel volume loss and chronic small vessel ischemic changes. Bones: No fracture or aggressive osseous lesion. Lungs: Mild emphysematous changes bilaterally. 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 Moderate diffuse irregular atherosclerotic plaque is also noted within the aortic arch. No significant great vessel origin stenosis. IMPRESSION: 4 cm heterogeneous area of hypoattenuation in the anterior floor mouth involving the sublingual spaces, with spread to the submental space. This is most likely cellulitis with inflammatory phlegmon or developing abscess, potentially arising from either the left sublingual gland or an odontogenic source such as the left second mandibular premolar. No associated airway compromise. 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 Report Dictated on Electronically Signed By: Marcelino Serna MD Electronically Signed Date/Time: 12/28/2023 10:06 PM EDT [facility] 12-29-2023 Consult note Associated Order (s): IP CONSULT TO OTOLARYNGOLOGY Images from the original note were not included. [facility] Otolaryngology Head & Neck Surgery Roverto Rebollar D[address]O [address] [facility] [address] Dept: [phone] Dept Loc: [phone] Assessment and Recommendations: Submental Cellulitis dental origin Patient seen today for submental cellulitis secondary to dental origin with failed outpatient antibiotic therapy. CT soft tissue neck reviewed revealing 4 cm phlegmon, no ring enhancing abscess therefore no acute surgical ENT intervention warranted at this time. Continue treatment with IV antibiotics and would recommend adding IV Decadron as well. Ok to advance diet to soft. Consider inpatient dental evaluation. I spent total time 55 minutes reviewing previous notes, test results, and face to face with the patient discussing the diagnosis and importance of compliance with the treatment plan as well as documenting on the day of the visit. F COMPLAINT: submental cellulitis Reason for Admission: same History Obtained From: patient; EMR HISTORY OF PRESENT ILLNESS: Diana Kohli is a 83 y.o. female admitted for evaluation of swelling and redness under chin and floor of mouth that initially started a week ago. Reports was seen outpatient last week on Monday by dentistry for increased dental pain to lower central incisors. Apparently was told there was active infection and was placed on course of antibiotics and decision to pull the teeth was postponed until infection resolved. She woke up Monday last week with swelling and pain. Denies prior infection similar to this. She is having some trismus but no shortness of breath, airway obstruction, difficulty tolerating secretions. She is on Unasyn. Not diabetic. NPO. Mild leukocytosis. Afebrile. CT soft tissue neck revealed 4 cm heterogeneous area of hypoattenuation in the anterior floor mouth involving the sublingual spaces, with spread to the submental space. This is most likely cellulitis with inflammatory phlegmon or developing abscess, potentially arising from either the left sublingual gland or an odontogenic source such as the left second mandibular premolar. No associated airway compromise. Past Medical History: Past Medical History: Diagnosis Date Disease of thyroid gland Hypertension Past Surgical History: Past Surgical History: Procedure Laterality Date CHOLECYSTECTOMY Medications Prior to Admission: Medications Prior to Admission Medication Sig Dispense Refill Last Dose amLODIPine (Norvasc) 5 MG tablet Take 5 mg by mouth before bedtime. aspirin 81 MG EC tablet Take 81 mg by mouth daily. cholecalciferol (Vitamin D-3) 25 MCG (1000 UT) capsule Take 1,000 Units by mouth daily. levothyroxine (Synthroid, Levoxyl) 112 MCG tablet Take 112 mcg by mouth every morning (before breakfast). meclizine (Antivert) 25 MG tablet Take 12.5 mg by mouth in the morning. Current Medication List: Current Facility-Administered Medications Medication Dose Route Frequency Provider Last Rate Last Admin acetaminophen (Tylenol) tablet 650 mg 650 mg Oral q6h PRN Mani Sanchez MD 650 mg at 12/29/23 0901 Or acetaminophen (Tylenol) suppository 650 mg 650 mg Rectal q6h PRN Mani Sanchez MD ampicillin-sulbactam (Unasyn) 3,000 mg in sodium chloride 0.9 % 100 mL IVPB (Add-Partlow) 3,000 mg IntraVENous q6h Mani Sanchez MD Stopped at 12/29/23 0931 enoxaparin (Lovenox) syringe 40 mg 40 mg SubCUTAneous Daily Mani Sanchez MD 40 mg at 12/29/23 0902 morphine injection 2 mg 2 mg IntraVENous q4h PRN Mani Sanchez MD 2 mg at 12/29/23 0455 naloxone (Narcan) injection 0.4 mg 0.4 mg IntraVENous q5 min PRN Mani Sanchez MD ondansetron ODT (Zofran-ODT) disintegrating tablet 4 mg 4 mg Oral q8h PRN Mani Sanchez MD Or ondansetron (Zofran) injection 4 mg 4 mg IntraVENous q6h PRN Mani Sanchez MD polyethylene glycol (PEG) 3350 (Miralax) packet 17 g 17 g Oral Daily PRN Mani Sanchez MD Allergies: No Known Allergies Social History: TOBACCO: Social History Tobacco Use Smoking Status Every Day Packs/day: 1 Types: Cigarettes Start date: 12/18/2007 Smokeless Tobacco Never ETOH: Social History Substance and Sexual Activity Alcohol Use Not Currently DRUGS: Social History Substance and Sexual Activity Drug Use Not Currently Family History: No family history on file. REVIEW OF SYSTEMS: 14 point review of systems completed and all negative except as noted in HPI PHYSICAL EXAM: Physical BP 144/67 (BP Location: Right arm, Patient Position: Lying) Pulse 70 Temp 36.5 C (97.7 F) (Temporal) Resp 18 Ht 5' 2" (1.575 m) Wt 185 lb 8 oz (84.1 kg) SpO2 93% BMI 33.93 kg/m General: Patient is not in acute distress. Appearance: Patient is well-developed. Eyes: Conjunctiva/sclera: Conjunctivae normal. Pupils: Pupils are equal, round, and reactive to light. HENT: Jaw: No trismus. Nose: No nasal deformity, mucosal edema or rhinorrhea. Mouth: sublingual swelling. Poor dentition. Foul odor from oral cavity. Pharynx: Uvula midline. No oropharyngeal exudate or uvula swelling. Tonsils: No tonsillar exudate. No abnormal masses or lesions Thyroid: No significant thyromegaly. Trachea: Trachea and phonation normal. No tracheal deviation. Pulmonary: Effort: Pulmonary effort is normal. No respiratory distress. Breath sounds: No stridor. Musculoskeletal: Head: Normocephalic and atraumatic. Neck: diffuse submandibular swelling, induration, erythema. Skin: General: Skin is warm and dry. Findings: No erythema or rash. Neurological: Cranial Nerves: No cranial nerve deficit. Sensory: No sensory deficit. Coordination: Coordination normal. Psychiatric: Mood and Affect: Mood and affect normal. Cognition and Memory: Cognition and memory normal. DATA: Latest Reference Range & Units 12/28/23 21:44 12/29/23 01:02 12/29/23 02:34 12/29/23 04:53 SODIUM 135 - 145 mmol/L 139 POTASSIUM 3.5 - 5.1 mmol/L 3.6 CHLORIDE 98 - 107 mmol/L 106 Carbon Dioxide (CO2) 22 - 30 mmol/L 26 ANION GAP 3 - 13 mmol/L 6 Urea Nitrogen (BUN) 7 - 17 mg/dL 19 (H) Creatinine 0.52 - 1.04 mg/dL 0.89 eGFR >60.0 mL/min/1.73m*2 65.2 GLUCOSE 70 - 100 mg/dL 105 (H) CALCIUM 8.4 - 10.4 mg/dL 9.2 Auto WBC 3.6 - 10.7 10*3/uL 12.9 (H) RBC 3.80 - 5.20 10*6/uL 4.70 HEMOGLOBIN 11.7 - 16.0 g/dL 14.8 HEMATOCRIT 35.0 - 47.0 % 45.0 MCV 77.0 - 99.0 fL 95.7 MCH 26.0 - 34.0 pg 31.5 MCHC 30.5 - 36.0 % 32.9 RDW 11.5 - 15.0 % 12.4 Platelets 140 - 440 10*3/uL 307 Mean Platelet Volume (MPV) 9.0 - 12.7 fL 9.4 Neutrophils Relative 38.0 - 82.0 % 79.9 Lymphocytes Relative 15.0 - 45.0 % 10.9 (L) Monocytes Relative 5.0 - 13.0 % 7.9 Eosinophils Relative 0.0 - 6.0 % 0.5 Basophils Relative 0.0 - 2.0 % 0.3 ABSOLUTE LYMPHOCYTES - QUEST 1.0 - 4.3 10*3/uL 1.4 Monocytes Absolute 0.0 - 0.9 10*3/uL 1.0 (H) Eosinophils Absolute 0.0 - 0.5 10*3/uL 0.1 Basophils Absolute 0.0 - 0.2 10*3/uL 0.0 nRBC 0.0 - 2.0 /100 WBCs 0.0 Protime 9.0 - 12.0 s 10.6 INR 0.9 - 1.1 1.0 APTT 20.0 - 30.5 s 28.6 SARS-COV-2 ANTIGEN Rpt BLOOD CULTURE Rpt Rpt CT SOFT TISSUE NECK W IV CONTRAST Rpt Immature Grans Absolute <0.1 10*3/uL 0.1 (H) Immature Grans % 0.0 - 2.0 % 0.5 Absolute Neutrophils 1.8 - 7.5 10*3/uL 10.3 (H) SARS-CoV-2 Antigen Negative Negative (H): Data is abnormally high (L): Data is abnormally low Rpt: View report in Results Review for more information IMAGING: Narrative & Impression Patient Name: DIANA KOHLI : 1940 Exam Date/Time: 12/28/2023 21:46 Procedure: CT SOFT TISSUE NECK W IV CONTRAST Ordering Provider: GILMORE VISHNU Reason For Exam: strong suspicion for submental abscess/ludwigs angina EXAMINATION: CT SOFT TISSUE NECK W IV CONTRAST CLINICAL HISTORY: strong suspicion for submental abscess/ludwigs angina COMPARISON: None TECHNIQUE: Thin axial images were obtained through the neck with intravenous contrast. 2D sagittal and coronal reconstructions were obtained from the axial data. Dose reduction was employed with automated exposure control. FINDINGS: Aerodigestive tract: There is a hypoechoic collection extending from the sublingual spaces bilaterally into the submental space measuring 4.2 x 4.5 x 4 cm. This area of hypoattenuation is heterogeneous with ill-defined margins and areas of mild peripheral enhancement. This finding could arise from either the left sublingual gland or an odontogenic source such as the left second mandibular premolar which has a carious lesion and 7 mm periapical cyst or abscess. There is no significant extension of this infectious process into the submandibular spaces or posteriorly within the floor of mouth. There is no airway compromise or laryngeal edema. No retropharyngeal collection. Lymph nodes: No pathologically enlarged, necrotic, or otherwise abnormal lymph nodes. Major salivary glands: Normal. Thyroid gland: Normal. Carotid space: Patent bilateral extracranial carotid and jugular systems. Atherosclerotic calcifications at the carotid bifurcations. There is also dense calcified plaque in the carotid siphons and intracranial left vertebral artery. Paranasal sinuses, middle ears, mastoids: Clear. Brain and orbits: Small remote left cerebellar infarct. Generalized prequel volume loss and chronic small vessel ischemic changes. Bones: No fracture or aggressive osseous lesion. Lungs: Mild emphysematous changes bilaterally. 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 Moderate diffuse irregular atherosclerotic plaque is also noted within the aortic arch. No significant great vessel origin stenosis. IMPRESSION: 4 cm heterogeneous area of hypoattenuation in the anterior floor mouth involving the sublingual spaces, with spread to the submental space. This is most likely cellulitis with inflammatory phlegmon or developing abscess, potentially arising from either the left sublingual gland or an odontogenic source such as the left second mandibular premolar. No associated airway compromise. 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 Report Dictated on Electronically Signed By: Marcelino Serna MD Electronically Signed Date/Time: 12/28/2023 10:06 PM EDT documented in this encounter [facility] 12-29-2023 Plan of care note Problem: Pain - Adult Goal: Verbalizes/displays adequate comfort level or baseline comfort level Outcome: Progressing Problem: Safety - Adult Goal: Free from fall injury Outcome: Progressing The patient is Moderately Stable - Low risk of patient condition declining or worsening The patient's goals for the shift include The clinical goals for the shift include maintain comfort and safety [facility] 12-28-2023 History and physical note Images from the original note were not included. Attending History and Physical Admit Date: 12/28/2023 PCP: Charlene Walker MD CHIEF COMPLAINT: Chief Complaint Patient presents with Facial Swelling Patient arrives via car with complaints of facial swelling since last Monday related to infected teeth. Patient's chin appears red and swollen. States that she had an infected tooth that was checked out by a dentist. Patient was supposed to have 2 teeth pulled today but could not have it done since she has this facial swelling HISTORY OF PRESENT ILLNESS: Diana is a 83 y.o. female with past medical history below who presented to ED with c/o worsening swelling to the floor of mouth and lower chin area over the past one week. Initially attributed to dental infection but when she went to the dentist today to have teeth extracted, the swelling was too severe and they recommended that she go to the emergency room for IV antibiotics. Currently reports pain with swallowing and some change in voice but denies any significant hoarseness, drooling, neck stiffness, high fevers, rash, nausea, or vmiting. Will admit for further evaluation and management. Past Medical History: History reviewed. No pertinent past medical history. Past Surgical History: History reviewed. No pertinent surgical history. Social History: Social History Socioeconomic History Marital status: Spouse name: Not on file Number of children: Not on file Years of education: Not on file Highest education level: Not on file Occupational History Not on file Tobacco Use Smoking status: Not on file Smokeless tobacco: Not on file Substance and Sexual Activity Alcohol use: Not on file Drug use: Not on file Sexual activity: Not on file Other Topics Concern Not on file Social History Narrative Not on file Social Determinants of Health Financial Resource Strain: Not on file Food Insecurity: Not on file Transportation Needs: Not on file Physical Activity: Not on file Stress: Not on file Social Connections: Not on file Intimate Partner Violence: Not on file Housing Stability: Not on file Family History: No family history on file. Medications Prior to Admission: No current facility-administered medications on file prior to encounter. No current outpatient medications on file prior to encounter. Allergies: No Known Allergies REVIEW OF SYSTEMS: Pertinent positives and negatives as per HPI Vitals: BP (!) 145/71 Pulse 74 Temp 36.4 C (97.6 F) (Temporal) Resp 16 SpO2 94% BMI Classification: Pulse Ox: SpO2 Av.5 % Min: 94 % Max: 95 % Supplemental O2: PHYSICAL EXAM: Physical Exam HEENT: PERRLA, EOMI. Submental swelling, erythema and tendernes Neck: supple, nontender Chest: BLAE+, clear CVS: S1+, S2+, no m/r/g Abdomen: soft, nontender, BS+ AIRPLANE PILOT: AAOx3, non focal Ext: pulse 2+, no edema DATA: CBC: Recent Labs 12/28/231999 WBC 14.2* RBC 4.90 HGB 15.1 HCT 45.8 MCV 93.5 RDW 12.5 PLT 320 BMP: Recent Labs 12/28/231999 NA 139 K 4.0 CL 106 CO2 24 BUN 23* CREATININE 1.09* GLUCOSE 105* CALCIUM 9.8 ANIONGAP 9 LIVER PROFILE: Recent Labs 12/28/231999 AST 37 ALT 37* BILITOT 0.8 ALKPHOS 145* PROT 7.5 PT/INR: No results for input(s): "PROTIME", "INR" in the last 72 hours. CARDIAC ENZYMES: No results for input(s): "TROPONINI" in the last 72 hours. Procalcitonin: No results found for: PROCAL Urine Culture: No results found for this or any previous visit. COVID-19 PCR: No results for input(s): "COVID19" in the last 72 hours. I reviewed: [x] laboratory results [x] radiographic results At the time of today's encounter. Pt was advised of the results. Data: (LOW: 2x CAT1 or independent historian MOD: 3x CAT1 or 1x CAT3 EXTENSIVE: 3x CAT1 and 1x CAT3) Assessment Discussed management with the ED provider and agree with hospitalization. Acute, acute on chronic, unstable/uncontrolled chronic problems/diagnoses: # Cellulitis of submental space - on unasyn - blood cultures - ENT consulted in ED, possible I&D in am Stable chronic problems affecting care, new non-acute diagnoses: # HTN Plan As a result of the above findings & factors, the following mgmt was pursued: - home meds as ordered - am labs, replace lytes prn - PT/OT/CM/SW - delirium precautions: increase activity - DVT prophylaxis: enoxaparin and encourage ambulation Advance Directive: No Order Anticipated Discharge - Date - TBD - Location - Home - Pending the following - clinical course Total time spent (which include face to face and non face to face encounters) : 56 minutes. Extended Emergency Contact Information Primary Emergency Contact: Piper Hamilton (POA) Mobile Relation: Louis [employer] Diana Kohli : 1940 Primary Care Physician: Charlene Walker MD The patient and/or family/surrogate voluntarily agreed to participate in ACP services. Patient s cognitive capacity: yes Code Status: [x] [FULL CODE - Continue all advanced life support: CPR,intubation,invasive procedures] [_] [DNR-CCA - DO NOT do CPR, intubation] [_] [DNR-LOAN CLERK - Comfort care only] [_] DNR form [was/was not] signed Summary of discussion: The patient HCPOA is the following: none [Condition that instigated the ACP on this DOS, relevant PMH, functional status, goals of care, and whom this was discussed with including names and relationship to the patient, and any relevant advance care documentation discussion] I answered all the patient/family questions that I could within the range and scope of the current medical situation. We discussed the medical conditions, risks, benefits, outcomes, and goals of care at this time for the patient's medical issues at hand in the face of the patient's chronic issues and current presentation. Total time spent: 2 minutes were spent discussing the patient's resuscitation status, advance care planning, and end of life care, with patient and/or family/surrogate. Mani Sanchez MD Division of Hospitalist Medicine [facility] [employer] Phone: 12-28-2023 History and physical note Images from the original note were not included. Attending History and Physical Admit Date: 12/28/2023 PCP: Charlene Walker MD CHIEF COMPLAINT: Chief Complaint Patient presents with Facial Swelling Patient arrives via car with complaints of facial swelling since last Monday related to infected teeth. Patient's chin appears red and swollen. States that she had an infected tooth that was checked out by a dentist. Patient was supposed to have 2 teeth pulled today but could not have it done since she has this facial swelling HISTORY OF PRESENT ILLNESS: Diana is a 83 y.o. female with past medical history below who presented to ED with c/o worsening swelling to the floor of mouth and lower chin area over the past one week. Initially attributed to dental infection but when she went to the dentist today to have teeth extracted, the swelling was too severe and they recommended that she go to the emergency room for IV antibiotics. Currently reports pain with swallowing and some change in voice but denies any significant hoarseness, drooling, neck stiffness, high fevers, rash, nausea, or vmiting. Will admit for further evaluation and management. Past Medical History: History reviewed. No pertinent past medical history. Past Surgical History: History reviewed. No pertinent surgical history. Social History: Social History Socioeconomic History Marital status: Spouse name: Not on file Number of children: Not on file Years of education: Not on file Highest education level: Not on file Occupational History Not on file Tobacco Use Smoking status: Not on file Smokeless tobacco: Not on file Substance and Sexual Activity Alcohol use: Not on file Drug use: Not on file Sexual activity: Not on file Other Topics Concern Not on file Social History Narrative Not on file Social Determinants of Health Financial Resource Strain: Not on file Food Insecurity: Not on file Transportation Needs: Not on file Physical Activity: Not on file Stress: Not on file Social Connections: Not on file Intimate Partner Violence: Not on file Housing Stability: Not on file Family History: No family history on file. Medications Prior to Admission: No current facility-administered medications on file prior to encounter. No current outpatient medications on file prior to encounter. Allergies: No Known Allergies REVIEW OF SYSTEMS: Pertinent positives and negatives as per HPI Vitals: BP (!) 145/71 Pulse 74 Temp 36.4 C (97.6 F) (Temporal) Resp 16 SpO2 94% BMI Classification: Pulse Ox: SpO2 Av.5 % Min: 94 % Max: 95 % Supplemental O2: PHYSICAL EXAM: Physical Exam HEENT: PERRLA, EOMI. Submental swelling, erythema and tendernes Neck: supple, nontender Chest: BLAE+, clear CVS: S1+, S2+, no m/r/g Abdomen: soft, nontender, BS+ AIRPLANE PILOT: AAOx3, non focal Ext: pulse 2+, no edema DATA: CBC: Recent Labs 12/28/231999 WBC 14.2* RBC 4.90 HGB 15.1 HCT 45.8 MCV 93.5 RDW 12.5 PLT 320 BMP: Recent Labs 12/28/231999 NA 139 K 4.0 CL 106 CO2 24 BUN 23* CREATININE 1.09* GLUCOSE 105* CALCIUM 9.8 ANIONGAP 9 LIVER PROFILE: Recent Labs 12/28/231999 AST 37 ALT 37* BILITOT 0.8 ALKPHOS 145* PROT 7.5 PT/INR: No results for input(s): "PROTIME", "INR" in the last 72 hours. CARDIAC ENZYMES: No results for input(s): "TROPONINI" in the last 72 hours. Procalcitonin: No results found for: PROCAL Urine Culture: No results found for this or any previous visit. COVID-19 PCR: No results for input(s): "COVID19" in the last 72 hours. I reviewed: [x] laboratory results [x] radiographic results At the time of today's encounter. Pt was advised of the results. Data: (LOW: 2x CAT1 or independent historian MOD: 3x CAT1 or 1x CAT3 EXTENSIVE: 3x CAT1 and 1x CAT3) Assessment Discussed management with the ED provider and agree with hospitalization. Acute, acute on chronic, unstable/uncontrolled chronic problems/diagnoses: # Cellulitis of submental space - on unasyn - blood cultures - ENT consulted in ED, possible I&D in am Stable chronic problems affecting care, new non-acute diagnoses: # HTN Plan As a result of the above findings & factors, the following mgmt was pursued: - home meds as ordered - am labs, replace lytes prn - PT/OT/CM/SW - delirium precautions: increase activity - DVT prophylaxis: enoxaparin and encourage ambulation Advance Directive: No Order Anticipated Discharge - Date - TBD - Location - Home - Pending the following - clinical course Total time spent (which include face to face and non face to face encounters) : 56 minutes. Extended Emergency Contact Information Primary Emergency Contact: Alfonso KAMARAJerChristinePiper Mobile Relation: Niece [employer] Diana Kohli : 1940 Primary Care Physician: Charlene Walker MD The patient and/or family/surrogate voluntarily agreed to participate in ACP services. Patient s cognitive capacity: yes Code Status: [x] [FULL CODE - Continue all advanced life support: CPR,intubation,invasive procedures] [_] [DNR-CCA - DO NOT do CPR, intubation] [_] [DNR-LOAN CLERK - Comfort care only] [_] DNR form [was/was not] signed Summary of discussion: The patient HCPOA is the following: none [Condition that instigated the ACP on this DOS, relevant PMH, functional status, goals of care, and whom this was discussed with including names and relationship to the patient, and any relevant advance care documentation discussion] I answered all the patient/family questions that I could within the range and scope of the current medical situation. We discussed the medical conditions, risks, benefits, outcomes, and goals of care at this time for the patient's medical issues at hand in the face of the patient's chronic issues and current presentation. Total time spent: 2 minutes were spent discussing the patient's resuscitation status, advance care planning, and end of life care, with patient and/or family/surrogate. Mani Sanchez MD Division of Hospitalist Medicine [facility] documented in this encounter [facility] 12-28-2023 Emergency department Note Images from the original note were not included. EMERGENCY DEPARTMENT ENCOUNTER Pt Name: Diana Kohli Birthdate 1940 Date of evaluation: 12/28/2023 ED Provider: Jose Gilmore DO CHIEF COMPLAINT Chief Complaint Patient presents with Facial Swelling Patient arrives via car with complaints of facial swelling since last Monday related to infected teeth. Patient's chin appears red and swollen. States that she had an infected tooth that was checked out by a dentist. Patient was supposed to have 2 teeth pulled today but could not have it done since she has this facial swelling. HISTORY OF PRESENT ILLNESS (Location/Symptom, Timing/Onset, Context/Setting, Quality, Duration, Modifying Factors, Severity) Note limiting factors. I wore appropriate PPE for the entirety of this encounter. HPI Diana Kohli is a 83 y.o. who presents to the emergency department with chief complaint of worsening swelling to the floor of her mouth and her lower chin area. Initially attributed to dental infection but when she went to the dentist today to have teeth extracted, the swelling was too severe and they recommended that she go to the emergency room for IV antibiotics. Currently reports pain with swallowing and some change in voice but denies any significant hoarseness, drooling, neck stiffness, high fevers, rash. Nursing Notes were reviewed. Limitations to history: None Outside historians: None REVIEW OF SYSTEMS Review of Systems Pertinent positives and negatives as per HPI PAST MEDICAL HISTORY History reviewed. No pertinent past medical history. SURGICAL HISTORY History reviewed. No pertinent surgical history. CURRENT MEDICATIONS Previous Medications No medications on file ALLERGIES Patient has no known allergies. FAMILY HISTORY No family history on file. SOCIAL HISTORY Social History Socioeconomic History Marital status: PHYSICAL EXAM ED Triage Vitals [12/28/23 1646] Temp Heart Rate Resp BP 36.4 C (97.6 F) 70 16 (!) 150/76 SpO2 Temp Source Heart Rate Source Patient Position 95 % Temporal Monitor -- BP Location FiO2 (%) -- -- Physical Exam Vitals and nursing note reviewed. Constitutional: General: She is not in acute distress. Appearance: She is well-developed. HENT: Head: Normocephalic and atraumatic. Comments: Significant submental soft tissue swelling with overlying erythema. Tenderness to palpation. Mild phonation change. Currently tolerating oral secretions but reporting pain with swallowing. No significant tongue swelling. No obvious dental abscess or gingival abscess. No purulent drainage. Eyes: Conjunctiva/sclera: Conjunctivae normal. Neck: Comments: No stridor at time of exam Cardiovascular: Rate and Rhythm: Normal rate and regular rhythm. Heart sounds: No murmur heard. Pulmonary: Effort: Pulmonary effort is normal. No respiratory distress. Breath sounds: Normal breath sounds. Abdominal: Palpations: Abdomen is soft. Tenderness: There is no abdominal tenderness. Musculoskeletal: General: No swelling. Cervical back: Neck supple. Skin: General: Skin is warm and dry. Capillary Refill: Capillary refill takes less than 2 seconds. Neurological: Mental Status: She is alert. Psychiatric: Mood and Affect: Mood normal. DIAGNOSTIC RESULTS RADIOLOGY (Per Emergency Physician): Interpretation per the Radiologist below, if available at the time of this note: CT soft tissue neck w IV contrast Final Result 4 cm heterogeneous area of hypoattenuation in the anterior floor mouth involving the sublingual spaces, with spread to the submental space. This is most likely cellulitis with inflammatory phlegmon or developing abscess, potentially arising from either the left sublingual gland or an odontogenic source such as the left second mandibular premolar. No associated airway compromise. 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 Report Dictated on Electronically Signed By: Marcelino Serna MD Electronically Signed Date/Time: 12/28/2023 10:06 PM EDT LABS: Labs Reviewed CBC WITH AUTO DIFFERENTIAL - Abnormal Result Value Auto WBC 14.2 (*) RBC 4.90 Hemoglobin 15.1 Hematocrit 45.8 MCV 93.5 MCH 30.8 MCHC 33.0 RDW 12.5 Platelets 320 MPV 9.3 nRBC 0.0 Neutrophils Relative 76.6 Lymphocytes Relative 13.1 (*) Monocytes Relative 9.0 Eosinophils Relative 0.5 Basophils Relative 0.3 Immature Grans % 0.5 Neutrophils Absolute 10.9 (*) Lymphocytes Absolute 1.9 Monocytes Absolute 1.3 (*) Eosinophils Absolute 0.1 Basophils Absolute 0.0 Immature Grans Absolute 0.1 (*) BASIC METABOLIC PANEL - Abnormal SODIUM 139 POTASSIUM 4.0 CHLORIDE 106 CARBON DIOXIDE 24 UREA NITROGEN 23 (*) CREATININE 1.09 (*) GLUCOSE 105 (*) CALCIUM 9.8 ANION GAP 9 eGFR 51.1 (*) HEPATIC FUNCTION PANEL - Abnormal BILIRUBIN, TOTAL 0.8 BILIRUBIN, DIRECT 0.0 ALKALINE PHOSPHATASE 145 (*) AST (SGOT) 37 ALT 37 (*) ALBUMIN 3.8 TOTAL PROTEIN 7.5 LACTIC ACID WITH REFLEX - Normal LACTIC ACID 0.9 All other labs were within normal range or not returned as of this dictation. EMERGENCY DEPARTMENT COURSE and DIFFERENTIAL DIAGNOSIS/MDM: Vitals: Vitals: 12/28/23 1646 BP: (!) 150/76 Pulse: 70 Resp: 16 Temp: 36.4 C (97.6 F) TempSrc: Temporal SpO2: 95% Medications sodium chloride 0.9 % bolus 1,000 mL (0 mL IntraVENous Stopped 12/28/232146) ampicillin-sulbactam (Unasyn) 3,000 mg in sodium chloride 0.9 % 100 mL IVPB (Add-Partlow) (0 mg IntraVENous Stopped 12/28/232105) ondansetron (Zofran) injection 4 mg (4 mg IntraVENous Given 12/28/232003) morphine injection 2 mg (2 mg IntraVENous Given 12/28/232003) iopamidol (Isovue-370) 76 % injection 75 mL (75 mL IntraVENous Given 12/28/232144) SCREENINGS Latosha Coma Scale Best Eye Response: Spontaneous Best Verbal Response: Oriented Best Motor Response: Follows commands Latosha Coma Scale Score: 15 I discussed patient's case with the ENT on-call physician who evaluated the clinical image sent by [employer]. He also evaluated CT imaging. No discrete abscess yet but likely early in the disease course. Given the significant amount of soft tissue swelling and phonation change in pain and swelling, patient will be observed overnight with antibiotics and will be evaluated by ENT in the morning. Discussed this with the patient. She is agreeable to the treatment plan. On further reassessment, continues to show no signs of any hard signs of airway compromise. Vitals are stable. Started on Unasyn. Discussed patient case with hospitalist Dr. Sanchez who accepted admission but did request blood cultures which were added on. CRITICAL CARE TIME Total Critical Care time was 10 minutes, excluding separately reportable procedures. There was a high probability of clinically significant/life threatening deterioration in the patient's condition which required my urgent intervention. FINAL IMPRESSION 1. Cellulitis of submental space DISPOSITION Admit 12/28/2023 10:41:53 PM PATIENT REFERRED TO: No follow-up provider specified. DISCHARGE MEDICATIONS: New Prescriptions No medications on file (Comment: Please note this report has been produced using speech recognition software and may contain errors related to that system including errors in grammar, punctuation, and spelling, as well as words and phrases that may be inappropriate. If there are any questions or concerns please feel free to contact the dictating provider for clarification.) Jose Gilmore DO (electronically signed) Emergency Medicine Provider Jose Gilmore DO 12/28/23 2316 Jose Gilmore DO 12/29/23 0012 documented in this encounter [facility] 12-28-2023 Physician Emergency department Note Images from the original note were not included. EMERGENCY DEPARTMENT ENCOUNTER Pt Name: Diana Kohli Birthdate 1940 Date of evaluation: 12/28/2023 ED Provider: Jose Gilmore DO CHIEF COMPLAINT Chief Complaint Patient presents with Facial Swelling Patient arrives via car with complaints of facial swelling since last Monday related to infected teeth. Patient's chin appears red and swollen. States that she had an infected tooth that was checked out by a dentist. Patient was supposed to have 2 teeth pulled today but could not have it done since she has this facial swelling. HISTORY OF PRESENT ILLNESS (Location/Symptom, Timing/Onset, Context/Setting, Quality, Duration, Modifying Factors, Severity) Note limiting factors. I wore appropriate PPE for the entirety of this encounter. HPI Diana Kohli is a 83 y.o. who presents to the emergency department with chief complaint of worsening swelling to the floor of her mouth and her lower chin area. Initially attributed to dental infection but when she went to the dentist today to have teeth extracted, the swelling was too severe and they recommended that she go to the emergency room for IV antibiotics. Currently reports pain with swallowing and some change in voice but denies any significant hoarseness, drooling, neck stiffness, high fevers, rash. Nursing Notes were reviewed. Limitations to history: None Outside historians: None REVIEW OF SYSTEMS Review of Systems Pertinent positives and negatives as per HPI PAST MEDICAL HISTORY History reviewed. No pertinent past medical history. SURGICAL HISTORY History reviewed. No pertinent surgical history. CURRENT MEDICATIONS Previous Medications No medications on file ALLERGIES Patient has no known allergies. FAMILY HISTORY No family history on file. SOCIAL HISTORY Social History Socioeconomic History Marital status: PHYSICAL EXAM ED Triage Vitals [12/28/23 1646] Temp Heart Rate Resp BP 36.4 C (97.6 F) 70 16 (!) 150/76 SpO2 Temp Source Heart Rate Source Patient Position 95 % Temporal Monitor -- BP Location FiO2 (%) -- -- Physical Exam Vitals and nursing note reviewed. Constitutional: General: She is not in acute distress. Appearance: She is well-developed. HENT: Head: Normocephalic and atraumatic. Comments: Significant submental soft tissue swelling with overlying erythema. Tenderness to palpation. Mild phonation change. Currently tolerating oral secretions but reporting pain with swallowing. No significant tongue swelling. No obvious dental abscess or gingival abscess. No purulent drainage. Eyes: Conjunctiva/sclera: Conjunctivae normal. Neck: Comments: No stridor at time of exam Cardiovascular: Rate and Rhythm: Normal rate and regular rhythm. Heart sounds: No murmur heard. Pulmonary: Effort: Pulmonary effort is normal. No respiratory distress. Breath sounds: Normal breath sounds. Abdominal: Palpations: Abdomen is soft. Tenderness: There is no abdominal tenderness. Musculoskeletal: General: No swelling. Cervical back: Neck supple. Skin: General: Skin is warm and dry. Capillary Refill: Capillary refill takes less than 2 seconds. Neurological: Mental Status: She is alert. Psychiatric: Mood and Affect: Mood normal. DIAGNOSTIC RESULTS RADIOLOGY (Per Emergency Physician): Interpretation per the Radiologist below, if available at the time of this note: CT soft tissue neck w IV contrast Final Result 4 cm heterogeneous area of hypoattenuation in the anterior floor mouth involving the sublingual spaces, with spread to the submental space. This is most likely cellulitis with inflammatory phlegmon or developing abscess, potentially arising from either the left sublingual gland or an odontogenic source such as the left second mandibular premolar. No associated airway compromise. 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 Report Dictated on Electronically Signed By: Marcelino Serna MD Electronically Signed Date/Time: 12/28/2023 10:06 PM EDT LABS: Labs Reviewed CBC WITH AUTO DIFFERENTIAL - Abnormal Result Value Auto WBC 14.2 (*) RBC 4.90 Hemoglobin 15.1 Hematocrit 45.8 MCV 93.5 MCH 30.8 MCHC 33.0 RDW 12.5 Platelets 320 MPV 9.3 nRBC 0.0 Neutrophils Relative 76.6 Lymphocytes Relative 13.1 (*) Monocytes Relative 9.0 Eosinophils Relative 0.5 Basophils Relative 0.3 Immature Grans % 0.5 Neutrophils Absolute 10.9 (*) Lymphocytes Absolute 1.9 Monocytes Absolute 1.3 (*) Eosinophils Absolute 0.1 Basophils Absolute 0.0 Immature Grans Absolute 0.1 (*) BASIC METABOLIC PANEL - Abnormal SODIUM 139 POTASSIUM 4.0 CHLORIDE 106 CARBON DIOXIDE 24 UREA NITROGEN 23 (*) CREATININE 1.09 (*) GLUCOSE 105 (*) CALCIUM 9.8 ANION GAP 9 eGFR 51.1 (*) HEPATIC FUNCTION PANEL - Abnormal BILIRUBIN, TOTAL 0.8 BILIRUBIN, DIRECT 0.0 ALKALINE PHOSPHATASE 145 (*) AST (SGOT) 37 ALT 37 (*) ALBUMIN 3.8 TOTAL PROTEIN 7.5 LACTIC ACID WITH REFLEX - Normal LACTIC ACID 0.9 All other labs were within normal range or not returned as of this dictation. EMERGENCY DEPARTMENT COURSE and DIFFERENTIAL DIAGNOSIS/MDM: Vitals: Vitals: 12/28/23 1646 BP: (!) 150/76 Pulse: 70 Resp: 16 Temp: 36.4 C (97.6 F) TempSrc: Temporal SpO2: 95% Medications sodium chloride 0.9 % bolus 1,000 mL (0 mL IntraVENous Stopped 12/28/232146) ampicillin-sulbactam (Unasyn) 3,000 mg in sodium chloride 0.9 % 100 mL IVPB (Add-Partlow) (0 mg IntraVENous Stopped 12/28/232105) ondansetron (Zofran) injection 4 mg (4 mg IntraVENous Given 12/28/232003) morphine injection 2 mg (2 mg IntraVENous Given 12/28/232003) iopamidol (Isovue-370) 76 % injection 75 mL (75 mL IntraVENous Given 12/28/232144) SCREENINGS Latosha Coma Scale Best Eye Response: Spontaneous Best Verbal Response: Oriented Best Motor Response: Follows commands Latosha Coma Scale Score: 15 I discussed patient's case with the ENT on-call physician who evaluated the clinical image sent by [employer]. He also evaluated CT imaging. No discrete abscess yet but likely early in the disease course. Given the significant amount of soft tissue swelling and phonation change in pain and swelling, patient will be observed overnight with antibiotics and will be evaluated by ENT in the morning. Discussed this with the patient. She is agreeable to the treatment plan. On further reassessment, continues to show no signs of any hard signs of airway compromise. Vitals are stable. Started on Unasyn. Discussed patient case with hospitalist Dr. Sanchez who accepted admission but did request blood cultures which were added on. CRITICAL CARE TIME Total Critical Care time was 10 minutes, excluding separately reportable procedures. There was a high probability of clinically significant/life threatening deterioration in the patient's condition which required my urgent intervention. FINAL IMPRESSION 1. Cellulitis of submental space DISPOSITION Admit 12/28/2023 10:41:53 PM PATIENT REFERRED TO: No follow-up provider specified. DISCHARGE MEDICATIONS: New Prescriptions No medications on file (Comment: Please note this report has been produced using speech recognition software and may contain errors related to that system including errors in grammar, punctuation, and spelling, as well as words and phrases that may be inappropriate. If there are any questions or concerns please feel free to contact the dictating provider for clarification.) Jose Gilmore DO (electronically signed) Emergency Medicine Provider Jose Gilmore DO 12/28/23 2316 Jose Gilmore DO 12/29/23 0012 [facility] Evaluation note Diagnosis Cellulitis of submental space- Primary Cellulitis of submental space documented in this encounter [facility]* Diagnosis Submental abscess- Primary Submental abscess Hypertension Unspecified essential hypertension documented in this encounter [facility]* Diagnosis Submental abscess- Primary documented in this encounter [facility]* Diagnosis Vision loss of left eye- Primary Unqualified visual loss, one eye documented in this encounter [facility]* Diagnosis 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 Central artery occlusion of retina Vision loss of left eye Unqualified visual loss, one eye Resistant hypertension documented in this encounter [facility]* Diagnosis 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 Central artery occlusion of retina Vision loss of left eye Unqualified visual loss, one eye Resistant hypertension [facility]* Diagnosis Acute loss of vision, left- Primary Acute loss of vision, left Hypertension, unspecified type Retinal artery occlusion Unspecified retinal vascular occlusion 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) [facility]* Diagnosis Acute cerebrovascular accident (CVA) due to ischemia (HCC)- Primary Stroke-like symptoms Bilateral carotid artery stenosis Occlusion and stenosis of carotid artery without mention of cerebral infarction Penetrating ulcer of aorta (CMS/HCC) (HCC) Acute loss of vision, left Acute cerebrovascular accident (CVA) due to ischemia (HCC) Hypertension, unspecified type 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, unspecified Stroke-like symptoms Hypertension Unspecified essential hypertension 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, unspecified documented in this encounter [facility] Summary Purpose Family History No Family History Records FoundNo Family History Records FoundNo Family History Records FoundNo Family History Records FoundNo Family History Records Found Advance Directives No Advanced Directives Records FoundLatest Code Status on File Code Status Date Activated Date Inactivated Comments Full Code 12/29/2023 4:14 AM 12/30/2023 7:08 PM Documents on File Type Date Recorded Patient Net Sql Developer Expl anation Advance Directives and Livin g Will 01/01/2024 11:13 AM Power of Electronic Game Developer 01/01/2024 11:12 AM Power of Electronic Game Developer 12/31/2023 7:20 PM Advance Directives and Livin g Will 12/31/2023 7:20 PM Latest Code Status on File Code Status Date Activated Date Inactivated Comments Full Code 12/31/2023 11:08 PM 01/06/2024 7:07 PM Code Status History Code Status Date Activated Date Inactivated Comments Full Code 12/29/2023 4:14 AM 12/30/2023 7:08 PM Documents on File Type Date Recorded Patient Net Sql Developer Expl anation Advance Directives and Livin g Will 01/01/2024 11:13 AM Power of Electronic Game Developer 01/01/2024 11:12 AM Power of Electronic Game Developer 12/31/2023 7:20 PM Advance Directives and Livin g Will 12/31/2023 7:20 PM Latest Code Status on File Code Status Date Activated Date Inactivated Comments Full Code 12/31/2023 11:08 PM 01/06/2024 7:07 PM Code Status History Code Status Date Activated Date Inactivated Comments Full Code 12/29/2023 4:14 AM 12/30/2023 7:08 PM Date Activated Date Inactivated Comments 12/31/2023 11:08 PM 01/06/2024 7:07 PM Date Activated Date Inactivated Comments 12/29/2023 4:14 AM 12/30/2023 7:08 PM Date Activated Date Inactivated Comments 04/18/2025 4:15 PM Date Activated Date Inactivated Comments 12/31/2023 11:08 PM 01/06/2024 7:07 PM Date Activated Date Inactivated Comments 12/29/2023 4:14 AM 12/30/2023 7:08 PM Date Activated Date Inactivated Comments 04/18/2025 4:15 PM 04/20/2025 5:50 PM Date Activated Date Inactivated Comments 12/31/2023 11:08 PM 01/06/2024 7:07 PM Date Activated Date Inactivated Comments 12/29/2023 4:14 AM 12/30/2023 7:08 PM Documents on File Type Date Recorded Patient Net Sql Developer Expl anation Power of Electronic Game Developer 05/28/2025 7:00 AM Advance Directives and Livin g Will 01/01/2024 11:13 AM Power of Electronic Game Developer 01/01/2024 11:12 AM Power of Electronic Game Developer 12/31/2023 7:20 PM Advance Directives and Livin g Will 12/31/2023 7:20 PM Date Activated Date Inactivated Comments 05/25/2025 4:29 PM Question Answer Comments ICU transfer: Yes Intubation: No Date Activated Date Inactivated Comments 05/23/2025 11:42 PM 05/25/2025 4:29 PM Date Activated Date Inactivated Comments 04/18/2025 4:15 PM 04/20/2025 5:50 PM Date Activated Date Inactivated Comments 12/31/2023 11:08 PM 01/06/2024 7:07 PM Date Activated Date Inactivated Comments 12/29/2023 4:14 AM 12/30/2023 7:08 PM Documents on File Type Date Recorded Patient Net Sql Developer Expl anation Power of Electronic Game Developer 05/28/2025 7:00 AM Advance Directives and Livin g Will 01/01/2024 11:13 AM Power of Electronic Game Developer 01/01/2024 11:12 AM Power of Electronic Game Developer 12/31/2023 7:20 PM Advance Directives and Livin g Will 12/31/2023 7:20 PM DNR (Do Not Resuscitate) 06/06/2025 4:23 PM [place] DNR Form Date Activated Date Inactivated Comments 05/25/2025 4:29 PM 06/10/2025 7:13 PM Reason for Referral Specialty Diagnoses / Procedures Referred By Suze buenrostro Referred To Contact Mark Fernandez MD [address] [place] [address] Referral ID Status Reason Start Date Expiration Date V isits Requested Visits Authorized [id number] Pending Review 1 1 Additional Source Comments INFORMATION SOURCE (unrecogn ized section and content) DATE CREATED AUTHOR 03/14/2018 [facility] DATE CREATED AUTHOR AUTHOR'S ORGANIZ ATION 03/14/2018 [facility] DATE CREATED AUTHOR AUTHOR'S ORGANIZ ATION 04/26/2025 [facility] DATE CREATED AUTHOR AUTHOR'S ORGANIZ ATION 07/04/2025 [facility] DATE CREATED AUTHOR AUTHOR'S ORGANIZ ATION 07/10/2025 [facility] Reason for Visit (unrecogniz ed section and content) Reason Onset Date Comments Appointment Request 12/30/2023 Reason Comments Facial Swelling Patient arrives via car with complaints of facial swelling since last Monday related to infected teeth. Patient's chin appears red and swollen. States that she had an infected tooth that was checked out by a dentist. Patient was supposed to have 2 teeth pulled today but could not have it done since she has this facial swelling. Specialty Diagnoses / Procedures Referred By Suze buenrostro Referred To Contact Diagnoses Cellulitis of submental space Procedures L03.211 (ICD-10-CM) - Cellulitis of submental space Mani Sanchez MD [address] [place] [address] [address] [place] [phone] Referral ID Status Reason Start Date Expiration Date Visits Re quested Visits Authorized [id number] 1 1 Reason Comments Vomiting Pt took her first do se of steroids & abx today around 0830 and about 1 hour after began vomiting. Reports she thought that may be due to her eating on an empty stomach so she took her noon dose with food and still developed nausea & vomiting. Reports she has been having intermittent vomiting and chills since. Pt vomiting upon triage Specialty Diagnoses / Procedures Referred By Suze buenrostro Referred To Contact Diagnoses Submental abscess Procedures [id number] abscess Mani Sanchez MD [address] [place] [address] [address] [place] [address] [place] [phone] Referral ID Status Reason Start Date Expiration Date Visits Re quested Visits Authorized [id number] 1 1 Reason Comments Post-op Reason Comments Loss of Vision Pt comes in stating she woke up yesterday morning and could not see out of L eye, pt states today and can only see light through L side of L eye Reason Comments Other ED follow up Va loss OS Specialty Diagnoses / Procedures Referred By Suze buenrostro Referred To Contact Ophthalmology Diagnoses Vision loss of left eye Procedures TX OFFICE/OUTPATIENT NEW HIGH MDM 60 MINUTES Chet Day DO [address] [place] [address] Phone: tel: fax: [facility] [place] [address] [place] [address] Phone: tel: fax: Referral ID Status Reason Start Date Expiration Date V isits Requested Visits Authorized Closed Specialty Services Required 04/17/2025 04/17/2026 1 1 Reason Comments Eye Problem Pt came in via triag e from her eye doctor where she stated he 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 Pt states she woke up Monday morning and had complete L eye blindness. Specialty Diagnoses / Procedures Referred By Suze buenrostro Referred To Contact Diagnoses Acute loss of vision, left Procedures 0 Ly Worrell MD [address] [place] [id number] Phone: tel: fax: [facility] [address] [place] [phone] Phone: tel: fax: Referral ID Status Reason Start Date Expiration Date Visits Re quested Visits Authorized 1 1 Reason Onset Date Comments Telephone Visit 04/25/2025 Transportation Issues 04/25/2025 Financial Issues 04/25/2025 Transitional Care Management Outreach 04/25/2025 Reason Onset Date Comments Transitional Care Management Outreach 04/30/2025 Financial Issues 04/30/2025 Home Visit 04/30/2025 Reason Onset Date Comments Appointment 05/07/2025 Reason Comments Loss of Vision Patient states losin g vision in right eye, similar issue with left eye recently. 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 Jas Flores DO [address] [place] [address] Phone: tel: fax: [facility] [address] [place] [address] Phone: tel: Referral ID Status Reason Start Date Expiration Date Visits Re quested Visits Authorized [id number] 1 1 Care Teams (unrecognized sec tion and content) Protective Signal Installer Relationship Specialty Start Date End Date Charlene Walker MD [address] [facility] [address] [place] [address] PCP - General Family Medicine 12/28/23 Protective Signal Installer Relationship Specialty Start Date End Date Charlene Walker MD [facility] [address] [place] [address] PCP - General Family Medicine 12/28/23 Protective Signal Installer Relationship Specialty Start Date End Date Charlene Walker MD [address] [place], [place] [address] [address] PCP - General Family Medicine 12/28/23 Protective Signal Installer Relationship Specialty Start Date End Date Charlene Walker MD [facility] [address] [place] [address] PCP - General Family Medicine 12/28/23 Protective Signal Installer Relationship Specialty Start Date End Date Charlene Walker MD [address] [place] [address] PCP - General Family Medicine 12/28/23 Protective Signal Installer Relationship Specialty Start Date End Date Charlene Walker MD [address] [place] [address] PCP - General Family Medicine 12/28/23 Protective Signal Installer Relationship Specialty Start Date End Date Charlene Walker MD [address] [address] [place] [address] PCP - General Family Medicine 12/28/23 Protective Signal Installer Relationship Specialty Start Date End Date Charlene Walker MD [address] [address] [place] [address] PCP - General Family Medicine 12/28/23 Protective Signal Installer Relationship Specialty Start Date End Date Charlene Walker MD [address] [address] [place] [address] PCP - General Family Medicine 12/28/23 Anthony Webster RN Registered Nurse Heel Burnisher Manager 04/22/25 Bhujel, Mon Community Health Worker 04/23/25 Protective Signal Installer Relationship Specialty Start Date End Date Charlene Walker MD [address] [address] [place] [address] PCP - General Family Medicine 12/28/23 Anthony Webster, ROBERT Registered Nurse Heel Burnisher Manager 04/22/25 Bhujel, Jeremias Community Health Worker 04/23/25 Protective Signal Installer Relationship Specialty Start Date End Date Charlene Walker MD [address] [address] [place] [address] PCP - General Family Medicine 12/28/23 Anthony Webster, ROBERT Registered Nurse Heel Burnisher Manager 04/22/25 05/20/25 Bhujel, Mon Community Health Worker 04/23/25 05/20/25 Protective Signal Installer Relationship Specialty Start Date End Date Charlene Walker MD [address] [address] [place] [address] PCP - General Family Medicine 12/28/23 Scheduled Active and Recently Administ ered Medications (unrecognized section and content) Medication Order 12/28/2023 12/29/2023 12/30/2023 amLODIPine (Norvasc) tablet 5 mg 5 mg, Oral, Daily, First dose on Mon12/29/23 at 2200, On hold since Mon12/29/2023 at 1329 until manually unheld 1329 (Held by provider - Provider: Jose L Mccormick MD - Reason: Change in vital signs)2200 (Dose Auto Held) 1908 (Unheld by provider - Provider: Automatic Discharge Provider) ampicillin-sulbactam (Unasyn) 3,000 mg in sodium chloride 0.9 % 100 mL IVPB (Add-Partlow) (COMPLETED) 3,000 mg, IntraVENous, at 200 mL/hr, Administer over 30 Minutes, Once, On Gabrielle 12/28/23 at 1830, For 1 dose, ADD-Partlow bag, Suspected Indication (Select all that apply): Skin and Soft Tissue Infection 2003 (New Bag - Provider: Jose Luis Light RN)2105 (Stopped - Provider: Jose Luis Light RN) ampicillin-sulbactam (Unasyn) 3,000 mg in sodium chloride 0.9 % 100 mL IVPB (Add-Partlow) 3,000 mg, IntraVENous, at 200 mL/hr, Administer over 30 Minutes, Every 6 hours, First dose on Mon12/29/23 at 0400, ADD-Partlow bag, Suspected Indication (Select all that apply): Head and Neck Infection 0456 (New Bag - Provider: Raciel Nix RN)0526 (Stopped - Provider: Raciel Nix RN)0901 (New Bag - Provider: Carmelo Maki, ROBERT)0931 (Stopped - Provider: Carmelo Maki, RN)1644 (New Bag - Provider: Carmelo Maki, RN)1714 (Stopped - Provider: Carmelo Maki, RN)2130 (New Bag - Provider: Tami Moreno RN)2200 (Stopped - Provider: Tami Moreno RN) 0346 (New Bag - Provider: Tami Moreno RN)0416 (Stopped - Provider: Tami Moreno RN)0927 (New Bag - Provider: Inga Posey, ROBERT)0957 (Stopped - Provider: Inga Posey RN)1405 (New Bag - Provider: Inga Posey RN)1435 (Stopped - Provider: Inga Posey RN) aspirin EC tablet 81 mg 81 mg, Oral, Daily, First dose on Mon12/29/23 at 1330, Do not crush, chew, or split., , On hold since Mon12/29/2023 at 1329 until manually unheld 1329 (Held by provider - Provider: Jose L Mccormick MD - Reason: Change in vital signs)1330 (Dose Auto Held) 0900 (Dose Auto Held)1908 (Unheld by provider - Provider: Automatic Discharge Provider) cholecalciferol (Vitamin D-3) tablet 1,000 Units 1,000 Units, Oral, Daily, First dose on 12/30/23 at 0900 0823 (Given - Provider: Inga Posey RN) dexAMETHasone (PF) (Decadron) injection 8 mg 8 mg, IntraVENous, Every 24 hours, First dose on Mon12/29/23 at 1400 1315 (Given - Provider: Carmelo Maki RN) 1405 (Given - Provider: Inga Posey RN) enoxaparin (Lovenox) syringe 40 mg 40 mg, SubCUTAneous, Every 24 hours scheduled (Daily), First dose on Mon12/29/23 at 0900, Indication of Use: Prophylaxis-DVT/PE, Indications: Prophylaxis of Venous Thromboembolism 0902 (Given - Provider: Carmelo Maki RN) 0823 (Given - Provider: Inga Posey, ROBERT) levothyroxine (Synthroid, Levoxyl) tablet 112 mcg 112 mcg, Oral, Daily before breakfast, First dose on 12/30/23 at 0600, Tube feeding (TF) interaction, obtain physician order to manage, recommend holding TF for 30 minutes before and after dose. 0541 (Given - Provider: Tami Moreno RN) morphine injection 2 mg (COMPLETED) 2 mg, IntraVENous, Once, On Gabrielle 12/28/23 at 1940, For 1 dose, If oral and IV narcotics ordered, use oral first and only use IV if oral is ineffective or cannot take oral. Do Not give oral and IV within 1 hour of each other unless specifically ordered. 2003 (Given - Provider: Jose Luis Light RN) ondansetron (Zofran) injection 4 mg (COMPLETED) 4 mg, IntraVENous, Once, On Gabrielle 12/28/23 at 1940, For 1 dose 2003 (Given - Provider: Jose Luis Light RN) sodium chloride 0.9 % bolus 1,000 mL (COMPLETED) 1,000 mL, IntraVENous, at 1,000 mL/hr, Administer over 1 Hours, Once, On Gabrielle 12/28/23 at 1830, For 1 dose 2002 (New Bag - Provider: Jose Luis Light RN)2146 (Stopped - Provider: Jose Luis Light RN) PRN Medication Order 12/28/2023 12/29/2023 12/30/2023 acetaminophen (Tylenol) suppository 650 mg(Linked Group 1) 650 mg, Rectal, Every 6 hours PRN, mild pain (1-3), fever, For temp greater than 100.4 F (38 C), Starting on Mon12/29/23 at 0414, Administer if oral route cannot be used. Maximum dose of acetaminophen is 4000 mg from all sources in 24 hours. 09 (See Alternative - Provider: Carmelo Maki RN) 034 (See Alternative - Provider: Tami Moreno, ROBERT)1033 (See Alternative - Provider: Inga Posey, ROBERT) acetaminophen (Tylenol) tablet 650 mg(Linked Group 1) 650 mg, Oral, Every 6 hours PRN, mild pain (1-3), fever, For temp greater than 100.4 F (38 C), Starting on Mon12/29/23 at 0414, Maximum dose of acetaminophen is 4000 mg from all sources in 24 hours. 09 (Given - Provider: Carmelo Maki RN) 034 (Given - Provider: Tami Moreno, ROBERT)1033 (Given - Provider: Inga Posey, ROBERT) iopamidol (Isovue-370) 76 % injection 75 mL (COMPLETED) 75 mL, IntraVENous, IMG once PRN, contrast, Starting on Gabri[place] 12/28/23 at 2145, For 1 dose 2145 (Given - Provider: Annette Long, RT (R)(CT)) meclizine (Antivert) tablet 25 mg 25 mg, Oral, 3 times daily PRN, dizziness, Starting on Mon12/30/23 at 0353 0541 (Given - Provider: Tami Moreno, ROBERT) morphine injection 2 mg (COMPLETED) 2 mg, IntraVENous, Every 4 hours PRN, severe pain (7-10), Starting on Mon12/29/23 at 0011, For 3 doses, If oral and IV narcotics ordered, use oral first and only use IV if oral is ineffective or cannot take oral. Do Not give oral and IV within 1 hour of each other unless specifically ordered. 0455 (Given - Provider: Raciel Nix, RN)1316 (Given - Provider: Carmelo Maki, ROBERT) 0001 (Given - Provider: Tami Moreno, ROBERT) naloxone (Narcan) injection 0.4 mg 0.4 mg, IntraVENous, Every 5 min PRN, opioid reversal, respiratory depression, Starting on Mon12/29/23 at 0013, +++ For RR <10, pinpoint pupils, over sedation for opioid reversal - MUST notify earth observations chief scientist provider immediately after first dose, may give IM or SQ if no IV access +++ ondansetron (Zofran) injection 4 mg(Linked Group 2) 4 mg, IntraVENous, Every 6 hours PRN, nausea, vomiting, Starting on Mon12/29/23 at 0414, 1st Line. Give IV if patient is unable to take orally. If inadequate response within 60 minutes, proceed to next-line agent or contact provider if no further options ordered. ondansetron ODT (Zofran-ODT) disintegrating tablet 4 mg(Linked Group 2) 4 mg, Oral, Every 8 hours PRN, nausea, vomiting, Starting on Mon12/29/23 at 0414, 1st Line. If inadequate response within 60 minutes, proceed to next-line agent or contact provider if no further options ordered. Patient should allow tablet to dissolve on tongue. Do not remove from blister pack until just before administering. polyethylene glycol (PEG) 3350 (Miralax) packet 17 g 17 g, Oral, Daily PRN, constipation, Starting on Mon12/29/23 at 0414, 1st line for treatment of constipation - give scheduled if no bowel movement in past 24 hours. Linked Groups Order Group 1: acetaminophen (Tylenol) tablet 650 mgJump to med 650 mg, Oral, Every 6 hours PRN, mild pain (1-3), fever, For temp greater than 100.4 F (38 C), Starting on Mon12/29/23 at 0414, Maximum dose of acetaminophen is 4000 mg from all sources in 24 hours. Or acetaminophen (Tylenol) suppository 650 mgJump to med 650 mg, Rectal, Every 6 hours PRN, mild pain (1-3), fever, For temp greater than 100.4 F (38 C), Starting on Mon12/29/23 at 0414, Administer if oral route cannot be used. Maximum dose of acetaminophen is 4000 mg from all sources in 24 hours. Group 2: ondansetron ODT (Zofran-ODT) disintegrating tablet 4 mgJump to med 4 mg, Oral, Every 8 hours PRN, nausea, vomiting, Starting on Mon12/29/23 at 0414, 1st Line. If inadequate response within 60 minutes, proceed to next-line agent or contact provider if no further options ordered. Patient should allow tablet to dissolve on tongue. Do not remove from blister pack until just before administering. Or ondansetron (Zofran) injection 4 mgJump to med 4 mg, IntraVENous, Every 6 hours PRN, nausea, vomiting, Starting on Mon12/29/23 at 0414, 1st Line. Give IV if patient is unable to take orally. If inadequate response within 60 minutes, proceed to next-line agent or contact provider if no further options ordered. Scheduled Medication Order 01/04/2024 01/05/2024 01/06/2024 amLODIPine (Norvasc) tablet 10 mg 10 mg, Oral, Daily, First dose (after last modification) on Mon01/05/24 at 2200 2039 (Given - Provider: Jolanta Gracia RN) amLODIPine (Norvasc) tablet 5 mg (CANCELED) 5 mg, Oral, Daily, First dose on 01/01/24 at 0000 2124 (Given - Provider: Jolanta Gracia, ROBERT) amoxicillin-clavulanate (Augmentin) 875-125 MG per tablet 1 tablet (COMPLETED) 1 tablet (875 mg), Oral, Once, On Gabrielle 01/04/24 at 1330, For 1 dose, Suspected Indication (Select all that apply): Other, Other Abx Indication: Submental abcess 1442 (Given - Provider: Rocio Sterling RN) ampicillin-sulbactam (Unasyn) 3,000 mg in sodium chloride 0.9 % 100 mL IVPB (Add-Partlow) (CANCELED) 3,000 mg, IntraVENous, at 200 mL/hr, Administer over 30 Minutes, Every 6 hours, First dose on [place] 12/31/23 at 2310, ADD-Partlow bag, Suspected Indication (Select all that apply): Head and Neck Infection 0543 (New Bag - Provider: Sara Benson RN)0613 (Stopped - Provider: Sara Benson RN)1144 (New Bag - Provider: Rocio Sterling RN)1214 (Stopped - Provider: Rocio Sterling RN) ampicillin-sulbactam (Unasyn) 3,000 mg in sodium chloride 0.9 % 100 mL IVPB (Add-Partlow) (CANCELED) 3,000 mg, IntraVENous, at 200 mL/hr, Administer over 30 Minutes, Every 6 hours, First dose on Gabrielle 01/04/24 at 2200, ADD-Partlow bag, Suspected Indication (Select all that apply): Head and Neck Infection 2246 (New Bag - Provider: Jolanta Gracia RN)2316 (Stopped - Provider: Jolanta Gracia RN) 0539 (New Bag - Provider: Jolanta Gracia RN)0609 (Stopped - Provider: Jolanta Gracia, RN)1000 (Not Given - Provider: Rocio Sterling RN - Reason: Order parameters not met)1151 (New Bag - Provider: Rocio Sterling RN)1221 (Stopped - Provider: Rocio Sterling RN)1747 (New Bag - Provider: Rocio Sterling RN)1817 (Stopped - Provider: Rocio Sterling RN) 0024 (New Bag - Provider: Jolanta Gracia RN)0054 (Stopped - Provider: Jolanta Gracia, RN)0537 (New Bag - Provider: Jolanta Gracia, RN)0607 (Stopped - Provider: Jolanta Gracia, RN) aspirin EC tablet 81 mg 81 mg, Oral, Daily, First dose (after last modification) on Mon01/03/24 at 0900, Recovery & On Unit, Do not crush, chew, or split. 0850 (Given - Provider: Rocio Sterling RN) 0925 (Given - Provider: Rocio Sterling RN) 0851 (Given - Provider: Nazario Ulloa, ROBERT) cefdinir (Omnicef) capsule 300 mg 300 mg, Oral, 2 times daily, First dose on Mon01/06/24 at 1100, Suspected Indication (Select all that apply): Skin and Soft Tissue Infection 1131 (Given - Provider: Nazario Ulloa, ROBERT) cholecalciferol (Vitamin D-3) tablet 1,000 Units 1,000 Units, Oral, Daily, First dose on Mon01/01/24 at 0900 0850 (Given - Provider: Rocio Sterling RN) 0924 (Given - Provider: Rocio Sterling RN) 0851 (Given - Provider: Nazario Ulloa, ROBERT) enoxaparin (Lovenox) syringe 40 mg 40 mg, SubCUTAneous, Every 24 hours scheduled (Daily), First dose on Mon01/01/24 at 0900, Indication of Use: Prophylaxis-DVT/PE, Indications: Prophylaxis of Venous Thromboembolism 0850 (Given - Provider: Rocio Sterling RN) 0900 (Not Given - Provider: Rocio Sterling RN - Reason: Patient/family refused) 0851 (Not Given - Provider: Nazario Ulloa RN - Reason: Other - Comment: pt ambulating) levothyroxine (Synthroid, Levoxyl) tablet 112 mcg 112 mcg, Oral, Daily before breakfast, First dose on Mon01/01/24 at 0600, Tube feeding (TF) interaction, obtain physician order to manage, recommend holding TF for 30 minutes before and after dose. 0541 (Given - Provider: Sara Benson RN) 0538 (Given - Provider: Jolanta Gracia, ROBERT) 0537 (Given - Provider: Jolanta Gracia, ROBERT) meclizine (Antivert) tablet 12.5 mg 12.5 mg, Oral, Daily, First dose on Mon01/01/24 at 0800, Indications: Dizziness 0850 (Given - Provider: Rocio Sterling RN) 0923 (Given - Provider: Rocio Sterling, ROBERT) 0851 (Given - Provider: Nazario Ulloa, RN) sodium chloride 0.9% (NS) flush 10 mL 10 mL, IntraVENous, Every 12 hours scheduled (2 times per day), First dose on 12/31/23 at 2310 0851 (Given - Provider: Rocio Sterling RN)2100 (Not Given - Provider: Jolanta Gracia, RN - Reason: Loss of IV access) 0923 (Given - Provider: Rocio Sterling RN)2040 (Given - Provider: Jolanta Gracia, RN) 0851 (Given - Provider: Nazario Ulloa, RN) PRN Medication Order 01/04/2024 01/05/2024 01/06/2024 hydrALAZINE (Apresoline) injection 10 mg 10 mg, IntraVENous, Every 4 hours PRN, high blood pressure, Starting on Mon01/05/24 at 0757 0917 (Given - Provider: Rocio Sterling, ROBERT) naloxone (Narcan) injection 0.4 mg 0.4 mg, IntraVENous, Every 5 min PRN, opioid reversal, respiratory depression, Starting on 12/31/23 at 2356, +++ For RR <10, pinpoint pupils, over sedation for opioid reversal - MUST notify earth observations chief scientist provider immediately after first dose, may give IM or SQ if no IV access +++ ondansetron (Zofran) injection 4 mg(Linked Group 1) 4 mg, IntraVENous, Every 6 hours PRN, nausea, vomiting, Starting on 12/31/23 at 2252, 1st Line. Give IV if patient is unable to take orally. If inadequate response within 60 minutes, proceed to next-line agent or contact provider if no further options ordered. 1700 (See Alternative - Provider: Rocio Sterling RN) 0936 (Given - Provider: Rocio Sterling RN) ondansetron ODT (Zofran-ODT) disintegrating tablet 4 mg(Linked Group 1) 4 mg, Oral, Every 8 hours PRN, nausea, vomiting, Starting on 12/31/23 at 2252, 1st Line. If inadequate response within 60 minutes, proceed to next-line agent or contact provider if no further options ordered. Patient should allow tablet to dissolve on tongue. Do not remove from blister pack until just before administering. 1700 (Given - Provider: Rocio Sterling, ROBERT) 0936 (See Alternative - Provider: Rocio Sterling RN) oxyCODONE-acetaminophen (Percocet) 5-325 MG per tablet 1 tablet 1 tablet, Oral, Every 6 hours PRN, moderate pain (4-6), severe pain (7-10), Starting on 12/31/23 at 2355, Maximum dose of acetaminophen is 4000 mg from all sources in 24 hours. 0850 (Given - Provider: Rocio Sterling RN) 0923 (Given - Provider: Rocio Sterling RN) polyethylene glycol (PEG) 3350 (Miralax) packet 17 g 17 g, Oral, Daily PRN, constipation, Starting on 12/31/23 at 2252, First line therapy for constipation 1142 (Given - Provider: Rocio Sterling RN) 0921 (Given - Provider: Rocio Sterling RN) sodium chloride 0.9 % infusion 5-250 mL/hr, IntraVENous, PRN, if patient receiving piggyback infusions and maintenance fluids are not ordered OR KVO fluids to protect IV site / prevent frequent line interruptions/ long duration, Starting on 12/31/23 at 2252, For piggyback infusion, administer at same rate as piggyback for a total of 25 mL. Enter 25 mL into dose field and piggyback rate into rate field of order. If piggyback is infusing at a rate less than 100 mL/hr, enter 25 mL into dose field and 100 mL/hr into rate field of order. For KVO fluids, enter rate of 20 mL/hr or less into rate field of order. sodium chloride 0.9% (NS) flush 10 mL 10 mL, IntraVENous, PRN, line care, Starting on 12/31/23 at 2252, After every IV line use Linked Groups Order Group 1: ondansetron ODT (Zofran-ODT) disintegrating tablet 4 mgJump to med 4 mg, Oral, Every 8 hours PRN, nausea, vomiting, Starting on 12/31/23 at 2252, 1st Line. If inadequate response within 60 minutes, proceed to next-line agent or contact provider if no further options ordered. Patient should allow tablet to dissolve on tongue. Do not remove from blister pack until just before administering. Or ondansetron (Zofran) injection 4 mgJump to med 4 mg, IntraVENous, Every 6 hours PRN, nausea, vomiting, Starting on 12/31/23 at 2252, 1st Line. Give IV if patient is unable to take orally. If inadequate response within 60 minutes, proceed to next-line agent or contact provider if no further options ordered. Scheduled Medication Order 04/18/2025 04/19/2025 04/20/2025 amLODIPine (Norvasc) tablet 10 mg 10 mg, Oral, Daily, First dose (after last modification) on Mon04/19/25 at 2200 2132 (Self Administered Via Pump - Provider: Tami Merritt, ROBERT) amLODIPine (Norvasc) tablet 5 mg (CANCELED) 5 mg, Oral, Daily, First dose on Mon04/18/25 at 2200 2037 (Given - Provider: Tami Merritt, ROBERT) aspirin EC tablet 81 mg(Linked Group 1) 81 mg, Oral, Daily, First dose on Mon04/18/25 at 1620, Do NOT administer if bleed present on follow up CT-Head. Do not crush, chew, or split. 2035 (Not Given - Provider: Tami Merritt RN - Reason: Other - Comment: Taken at home) 1007 (Given - Provider: South Slater RN) 0858 (Given - Provider: South Slater, RN) aspirin suppository 300 mg(Linked Group 1) 300 mg, Rectal, Daily, First dose on Mon04/18/25 at 1620, Do NOT administer if bleed present on follow up CT-Head. Use suppository if NPO or failed swallow screen. 2035 (See Alternative - Provider: Tami Merritt RN) 1007 (See Alternative - Provider: South Slater RN) 0858 (See Alternative - Provider: South Slater RN) atorvastatin (Lipitor) tablet 40 mg 40 mg, Oral, Nightly, First dose on Mon04/18/25 at 2100 2032 (Given - Provider: Tami Merritt RN) 2136 (Given - Provider: Tami Merritt, ROBERT) cholecalciferol (Vitamin D-3) tablet 1,000 Units 1,000 Units, Oral, Daily, First dose on Mon04/18/25 at 1620 2036 (Not Given - Provider: Tami Merritt RN - Reason: Other - Comment: Taken at home) 1007 (Given - Provider: South Slater RN) 0859 (Given - Provider: South Slater RN) clopidogrel (Plavix) tablet 75 mg 75 mg, Oral, Daily, First dose on Mon04/19/25 at 1315 1350 (Given - Provider: South Slater RN) 0859 (Given - Provider: South Slater RN) escitalopram (Lexapro) tablet 10 mg 10 mg, Oral, Daily, First dose on Mon04/18/25 at 1620 203 (Not Given - Provider: Tami Merritt RN - Reason: Other - Comment: Taken at home) 1007 (Given - Provider: South Slater RN) levothyroxine (Synthroid, Levoxyl) tablet 112 mcg 112 mcg, Oral, Daily before breakfast, First dose on Mon04/19/25 at 0600, Tube feeding (TF) interaction, obtain physician order to manage, recommend holding TF for 30 minutes before and after dose. 0520 (Not Given - Provider: Tami Merritt RN - Reason: NPO - Comment: Patient needs to be evaluated by EXPERIMENTAL ASSEMBLER)1013 (Given - Provider: South Slater RN - Comment: pt was NPO this AM) 0510 (Given - Provider: Tami Merritt RN) meclizine (Antivert) tablet 12.5 mg 12.5 mg, Oral, Daily, First dose on Mon04/18/25 at 1620 2036 (Not Given - Provider: Tami Merritt RN - Reason: Other - Comment: Taken at home) 1012 (Given - Provider: South Slater RN - Comment: pt was npo) 0859 (Given - Provider: South Slater RN) nicotine (Nicoderm, Step 1) 21 MG/24HR patch 1 patch 1 patch, TransDERmal, Administer over 24 Hours, Daily, First dose on Mon04/18/25 at 1615, Apply new patch to nonhairy, clean, dry skin on the upper body or upper outer arm. Rotate patch sites. Notify Pharmacy if patient or provider prefers patch to be removed at bedtime and replaced in the morning. 2041 (Medication Applied - Provider: Tami Merritt RN) 1007 (Medication Applied - Provider: South Slater RN)1008 (Medication Removed - Provider: South Slater RN) 0855 (Medication Applied - Provider: South Slater RN)1540 (Due: Medication Removed - Provider: Automatic Discharge Provider - Comment: Time automatically adjusted from order being discontinued) potassium chloride (Klor-Con) packet 40 mEq (COMPLETED) 40 mEq, Oral, Once, On Mon04/20/25 at 0400, For 1 dose, Dissolve each packet in 4 ounces of water = 5 mEq per 1 oz fluid., Indications: Hypokalemia 0510 (Given - Provider: Tami Merritt RN) potassium chloride 40 mEq in NS 500 mL IVPB (premix) (COMPLETED) 40 mEq, IntraVENous, at 125 mL/hr, Administer over 4 Hours, Once, On Mon04/20/25 at 0400, For 1 dose, Max infusion rate = 10 mEq/hr 0531 (New Bag - Provider: Tami Merritt RN)0947 (Stopped - Provider: South Slater RN) sodium chloride 0.9 % bolus 250 mL (COMPLETED) 250 mL, IntraVENous, at 250 mL/hr, Administer over 1 Hours, Once, On Mon04/18/25 at 1300, For 1 dose 1330 (New Bag - Provider: Bj Saunders RN)1630 (Stopped - Provider: Ksenia Paredes LPN) sodium chloride 0.9% (NS) flush 5-40 mL 5-40 mL, IntraVENous, Every 12 hours, First dose on Mon04/18/25 at 1300, For Line Patency: Peripheral IV = 5 mL; Midline or Central Line = 10 mL/lumen. If following IV push medication, administer flush at same rate as the IV push. Flush volume is determined by type of infusion therapy being given. For non-viscous solutions use: Peripheral IV = 5 mL Midline or Central Line = 10 mL/lumen For viscous solutions (i.e. blood components, parenteral nutrition, contrast media, or after obtaining blood sample) use: Peripheral IV = 10 mL Midline or Central Line = 20 mL/lumen 1322 (Given - Provider: Bj Saunders RN) 0010 (Not Given - Provider: Tami Merritt RN - Reason: IV Fluids Infusing)1217 (Not Given - Provider: South Slater RN - Reason: Other) 0207 (Not Given - Provider: Tami Merritt RN - Reason: Other - Comment: Flushhed previously)1209 (Not Given - Provider: South Slater RN - Reason: Other) Continuous Medication Order 04/18/2025 04/19/2025 04/20/2025 sodium chloride 0.9 % infusion (CANCELED) 50 mL/hr, IntraVENous, Continuous, Starting on Mon04/18/25 at 1300 1323 (New Bag - Provider: Bj Saunders RN) 0521 (Rate/Dose Verify - Provider: Tami Merritt, RN)1035 (Stopped - Provider: South Slater RN - Comment: [Order ends at this time. Document the following action when infusion is complete: Stopped]) PRN Medication Order 04/18/2025 04/19/2025 04/20/2025 acetaminophen (Tylenol) suppository 650 mg(Linked Group 2) 650 mg, Rectal, Every 6 hours PRN, mild pain (1-3), fever, For temp greater than 100.4 F (38 C), Starting on Mon04/18/25 at 1615, Administer if oral route cannot be used. Maximum dose of acetaminophen is 4000 mg from all sources in 24 hours. acetaminophen (Tylenol) tablet 650 mg(Linked Group 2) 650 mg, Oral, Every 6 hours PRN, mild pain (1-3), fever, For temp greater than 100.4 F (38 C), Starting on Mon04/18/25 at 1615, Maximum dose of acetaminophen is 4000 mg from all sources in 24 hours. bisacodyl (Dulcolax) suppository 10 mg 10 mg, Rectal, Daily PRN, constipation, Starting on Mon04/18/25 at 1615, 1st line for treatment of constipation - give scheduled if no bowel movement in past 24 hours. iopamidol (Isovue-370) 76 % injection 75 mL (COMPLETED) 75 mL, IntraVENous, IMG once PRN, contrast, Starting on Mon04/18/25 at 1422, For 1 dose 1422 (Given - Provider: Lele Quintanilla, RT (R)(CT)) labetalol (Normodyne,Trandate) injection 10 mg 10 mg, IntraVENous, Every 10 min PRN, high blood pressure, Starting on Mon04/18/25 at 1615, Administer 10 mg IV every 10 minutes if SBP is 220 mmHg or greater OR DBP is 120 mmHg or greater. Notify provider if SBP is 220 mmHg or greater OR DBP is 120 mmHg or greater after 3 consecutive doses. labetalol (Normodyne,Trandate) injection 10 mg 10 mg, IntraVENous, Every 4 hours PRN, high blood pressure, SBP > 170 and HR > 65, Starting on Mon04/19/25 at 1546 1556 (Given - Provider: South Slater RN) ondansetron (Zofran) injection 4 mg(Linked Group 3) 4 mg, IntraVENous, Every 6 hours PRN, nausea, vomiting, Starting on Mon04/18/25 at 1615, 1st Line. Give IV if patient is unable to take orally. If inadequate response within 60 minutes, proceed to next-line agent or contact provider if no further options ordered. ondansetron ODT (Zofran-ODT) disintegrating tablet 4 mg(Linked Group 3) 4 mg, Oral, Every 8 hours PRN, nausea, vomiting, Starting on Mon04/18/25 at 1615, 1st Line. If inadequate response within 60 minutes, proceed to next-line agent or contact provider if no further options ordered. Patient should allow tablet to dissolve on tongue. Do not remove from blister pack until just before administering. sodium chloride 0.9 % infusion 5-250 mL/hr, IntraVENous, PRN, if patient receiving piggyback infusions and maintenance fluids are not ordered OR KVO fluids to protect IV site / prevent frequent line interruptions / long duration, Starting on Mon04/18/25 at 1256, For piggyback infusion, administer at same rate as piggyback for a total of 25 mL. Enter 25 mL into dose field and piggyback rate into rate field of order. If piggyback is infusing at a rate less than 100 mL/hr, enter 25 mL into dose field and 100 mL/hr into rate field of order. For KVO fluids, enter rate of 20 mL/hr or less into rate field of order. sodium chloride 0.9% (NS) flush 5-40 mL 5-40 mL, IntraVENous, PRN, line care, After every IV line use, Starting on Mon04/18/25 at 1256, For Line Patency: Peripheral IV = 5 mL; Midline or Central Line = 10 mL/lumen. If following IV push medication, administer flush at same rate as the IV push. Flush volume is determined by type of infusion therapy being given. For non-viscous solutions use: Peripheral IV = 5 mL Midline or Central Line = 10 mL/lumen For viscous solutions (i.e. blood components, parenteral nutrition, contrast media, or after obtaining blood sample) use: Peripheral IV = 10 mL Midline or Central Line = 20 mL/lumen Linked Groups Order Group 1: aspirin EC tablet 81 mgJump to med 81 mg, Oral, Daily, First dose on Mon04/18/25 at 1620, Do NOT administer if bleed present on follow up CT-Head. Do not crush, chew, or split. Or aspirin suppository 300 mgJump to med 300 mg, Rectal, Daily, First dose on Mon04/18/25 at 1620, Do NOT administer if bleed present on follow up CT-Head. Use suppository if NPO or failed swallow screen. Group 2: acetaminophen (Tylenol) tablet 650 mgJump to med 650 mg, Oral, Every 6 hours PRN, mild pain (1-3), fever, For temp greater than 100.4 F (38 C), Starting on Mon04/18/25 at 1615, Maximum dose of acetaminophen is 4000 mg from all sources in 24 hours. Or acetaminophen (Tylenol) suppository 650 mgJump to med 650 mg, Rectal, Every 6 hours PRN, mild pain (1-3), fever, For temp greater than 100.4 F (38 C), Starting on Mon04/18/25 at 1615, Administer if oral route cannot be used. Maximum dose of acetaminophen is 4000 mg from all sources in 24 hours. Group 3: ondansetron ODT (Zofran-ODT) disintegrating tablet 4 mgJump to med 4 mg, Oral, Every 8 hours PRN, nausea, vomiting, Starting on Mon04/18/25 at 1615, 1st Line. If inadequate response within 60 minutes, proceed to next-line agent or contact provider if no further options ordered. Patient should allow tablet to dissolve on tongue. Do not remove from blister pack until just before administering. Or ondansetron (Zofran) injection 4 mgJump to med 4 mg, IntraVENous, Every 6 hours PRN, nausea, vomiting, Starting on Mon04/18/25 at 1615, 1st Line. Give IV if patient is unable to take orally. If inadequate response within 60 minutes, proceed to next-line agent or contact provider if no further options ordered. Scheduled Medication Order 06/08/2025 06/09/2025 06/10/2025 amLODIPine (Norvasc) tablet 2.5 mg 2.5 mg, Oral, Every evening, First dose on 06/09/25 at 1800 1719 (Given - Provider: Chet Reyes, ROBERT) 1800 (Canceled Entry - Provider: Automatic Discharge Provider - Comment: Automatically canceled at discontinue of medication order) amLODIPine (Norvasc) tablet 5 mg 5 mg, Oral, Daily, First dose (after last modification) on Gabrielle 06/05/25 at 2100, Hold for SBP < 120 2010 (Given - Provider: Yahaira Medrano RN) 1946 (Given - Provider: Khalida Sandy, ROBERT) aspirin EC tablet 81 mg(Linked Group 1) 81 mg, Oral, Daily, First dose on 05/24/25 at 0900, Do NOT administer if bleed present on follow up CT-Head. Do not crush, chew, or split. 0819 (Given - Provider: Keyanna Quintero RN) 0744 (Given - Provider: Chet Reyes, ROBERT) 0741 (Given - Provider: Annamarie Jorge, ROBERT) aspirin suppository 300 mg(Linked Group 1) 300 mg, Rectal, Daily, First dose on 05/24/25 at 0900, Do NOT administer if bleed present on follow up CT-Head. Use suppository if NPO or failed swallow screen. 0819 (See Alternative - Provider: Keyanna Quintero RN) 0744 (See Alternative - Provider: Chet Reyes RN) 0741 (See Alternative - Provider: Annamarie Jorge, ROBERT) atorvastatin (Lipitor) tablet 80 mg 80 mg, Oral, Nightly, First dose (after last modification) on 05/26/25 at 2100 2008 (Given - Provider: Yahaira Medrano RN) 194 (Given - Provider: Khalida Sandy, ROBERT) cholecalciferol (Vitamin D-3) tablet 1,000 Units 1,000 Units, Oral, Daily, First dose on 05/24/25 at 0900 0819 (Given - Provider: Keyanna Quintero RN) 0744 (Given - Provider: Chet Reyes, ROBERT) 0742 (Given - Provider: Annamarie Jorge, RN) enoxaparin (Lovenox) syringe 40 mg 40 mg, SubCUTAneous, Every 24 hours scheduled (Daily), First dose on 05/24/25 at 0900, Indication of Use: Prophylaxis-DVT/PE, Indications: Prophylaxis of Venous Thromboembolism 818 (Given - Provider: Keyanna Quintero RN) 07 (Given - Provider: Chet Reyes RN) 0742 (Given - Provider: Annamarie Jorge, ROBERT) escitalopram (Lexapro) tablet 10 mg 10 mg, Oral, Daily, First dose on 05/24/25 at 0900 0819 (Given - Provider: Keyanna Quintero RN) 0744 (Given - Provider: Chet Reyes RN) 0741 (Given - Provider: Annamarie Jorge RN) levothyroxine (Synthroid, Levoxyl) tablet 112 mcg 112 mcg, Oral, Daily before breakfast, First dose on 05/24/25 at 0600, Tube feeding (TF) interaction, obtain physician order to manage, recommend holding TF for 30 minutes before and after dose. 0515 (Given - Provider: Yahaira Medrano RN) 0608 (Given - Provider: Yahaira Medrano RN) 0513 (Given - Provider: Khalida Sandy RN) losartan (Cozaar) tablet 25 mg (CANCELED) 25 mg, Oral, 2 times daily, First dose (after last modification) on Mon06/03/25 at 2100 0819 (Given - Provider: Keyanna Quintero RN)2009 (Given - Provider: Yahaira Medrano RN) 0744 (Given - Provider: Chet Reyes RN) meclizine (Antivert) tablet 12.5 mg 12.5 mg, Oral, Daily, First dose on 05/24/25 at 0800 0819 (Given - Provider: Keyanna Quintero RN) 0947 (Given - Provider: Chet Reyes RN) 0742 (Given - Provider: Annamarie Jorge, RN) pantoprazole (ProtoNix) EC tablet 40 mg(Linked Group 2) 40 mg, Oral, Nightly, First dose on Mon05/24/25 at 2100, Do not crush, chew, or split. 2008 (Given - Provider: Yahaira Medrano, ROBERT) 1945 (Given - Provider: Khalida Sandy, ROBERT) sodium chloride 0.9% (NS) flush 5-40 mL 5-40 mL, IntraVENous, Every 12 hours, First dose on Mon05/23/25 at 2000, For Line Patency: Peripheral IV = 5 mL; Midline or Central Line = 10 mL/lumen. If following IV push medication, administer flush at same rate as the IV push. Flush volume is determined by type of infusion therapy being given. For non-viscous solutions use: Peripheral IV = 5 mL Midline or Central Line = 10 mL/lumen For viscous solutions (i.e. blood components, parenteral nutrition, contrast media, or after obtaining blood sample) use: Peripheral IV = 10 mL Midline or Central Line = 20 mL/lumen 0819 (Given - Provider: Keyanna Quintero RN)2010 (Given - Provider: Yahaira Medrano, ROBERT) 075 (Given - Provider: Chet Reyes RN)1946 (Given - Provider: Khalida Sandy, ROBERT) 0742 (Given - Provider: Annamarie Jorge, ROBERT) ticagrelor (Brilinta) tablet 90 mg(Linked Group 3) 90 mg, Oral, 2 times daily, First dose on Mon06/06/25 at 0900, For 365 days 0819 (Given - Provider: Keyanna Quintero RN)2009 (Given - Provider: Yahaira Medrano, ROBERT) 0744 (Given - Provider: Chet Reyes, ROBERT)194 (Given - Provider: Khalida Sandy, ROBERT) 0741 (Given - Provider: Annamarie Jorge, ROBERT) Continuous Medication Order 06/08/2025 06/09/2025 06/10/2025 lactated Ringer's infusion 50 mL/hr, IntraVENous, Continuous, Starting on Mon06/09/25 at 1030, For 20 hours 1133 (New Bag - Provider: Chet Reyes RN) 1175 (Stopped - Provider: Khalida Sandy RN - Comment: [Order ends at this time. Document the following action when infusion is complete: Stopped]) PRN Medication Order 06/08/2025 06/09/2025 06/10/2025 acetaminophen (Tylenol) suppository 650 mg(Linked Group 4) 650 mg, Rectal, Every 6 hours PRN, fever, For temp greater than 100.4 F (38 C), Starting on 05/24/25 at 0317, Administer if oral route cannot be used. Maximum dose of acetaminophen is 4000 mg from all sources in 24 hours. acetaminophen (Tylenol) tablet 650 mg(Linked Group 4) 650 mg, Oral, Every 6 hours PRN, mild pain (1-3), fever, moderate pain (4-6), severe pain (7-10), For temp greater than 100.4 F (38 C), Starting on 05/24/25 at 0317, Maximum dose of acetaminophen is 4000 mg from all sources in 24 hours. bisacodyl (Dulcolax) suppository 10 mg 10 mg, Rectal, Daily PRN, constipation, Starting on Mon05/23/25 at 2337, 2nd line for treatment of constipation - give scheduled (in addition to 1st line agent) if no bowel movement in past 48 hours hydrALAZINE (Apresoline) injection 10 mg 10 mg, IntraVENous, Every 4 hours PRN, high blood pressure, Second line, give for blood pressure greater than 180 hold for heart greater than 100 bpm, Starting on Mon05/30/25 at 0540 labetalol (Normodyne,Trandate) injection 10 mg 10 mg, IntraVENous, Every 4 hours PRN, high blood pressure, First line, give for blood pressure greater than 180 hold for heart rate less than 60 bpm, Starting on Mon05/30/25 at 0540 ondansetron ODT (Zofran-ODT) disintegrating tablet 4 mg(Linked Group 5) 4 mg, Oral, Every 8 hours PRN, nausea, vomiting, Starting on Mon05/23/25 at 2337, 1st Line. If inadequate response within 60 minutes, proceed to next-line agent or contact provider if no further options ordered. Patient should allow tablet to dissolve on tongue. Do not remove from blister pack until just before administering. polyethylene glycol (PEG) 3350 (Miralax) packet 17 g 17 g, Oral, Daily PRN, constipation, Starting on Mon05/23/25 at 2337, 1st line for treatment of constipation - give scheduled if no bowel movement in past 24 hours. prochlorperazine (Compazine) injection 10 mg(Linked Group 6) 10 mg, IntraVENous, Every 6 hours PRN, nausea, vomiting, Starting on 05/24/25 at 1637, Give IV if patient is unable to take orally. Give IM if patient is unable to take orally and does not have IV access. prochlorperazine (Compazine) suppository 25 mg(Linked Group 6) 25 mg, Rectal, Every 12 hours PRN, nausea, vomiting, Starting on 05/24/25 at 1637, Give TX if patient is unable to take orally or receive by injection. prochlorperazine (Compazine) tablet 10 mg(Linked Group 6) 10 mg, Oral, Every 6 hours PRN, nausea, vomiting, 2nd line, Starting on 05/24/25 at 1637 sodium chloride 0.9 % infusion 5-250 mL/hr, IntraVENous, PRN, if patient receiving piggyback infusions and maintenance fluids are not ordered OR KVO fluids to protect IV site / prevent frequent line interruptions / long duration, Starting on Mon05/23/25 at 1953, For piggyback infusion, administer at same rate as piggyback for a total of 25 mL. Enter 25 mL into dose field and piggyback rate into rate field of order. If piggyback is infusing at a rate less than 100 mL/hr, enter 25 mL into dose field and 100 mL/hr into rate field of order. For KVO fluids, enter rate of 20 mL/hr or less into rate field of order. sodium chloride 0.9% (NS) flush 5-40 mL 5-40 mL, IntraVENous, PRN, line care, After every IV line use, Starting on Mon05/23/25 at 1953, For Line Patency: Peripheral IV = 5 mL; Midline or Central Line = 10 mL/lumen. If following IV push medication, administer flush at same rate as the IV push. Flush volume is determined by type of infusion therapy being given. For non-viscous solutions use: Peripheral IV = 5 mL Midline or Central Line = 10 mL/lumen For viscous solutions (i.e. blood components, parenteral nutrition, contrast media, or after obtaining blood sample) use: Peripheral IV = 10 mL Midline or Central Line = 20 mL/lumen Linked Groups Order Group 1: aspirin EC tablet 81 mgJump to med 81 mg, Oral, Daily, First dose on 05/24/25 at 0900, Do NOT administer if bleed present on follow up CT-Head. Do not crush, chew, or split. Or aspirin suppository 300 mgJump to med 300 mg, Rectal, Daily, First dose on 05/24/25 at 0900, Do NOT administer if bleed present on follow up CT-Head. Use suppository if NPO or failed swallow screen. Group 2: pantoprazole (ProtoNix) EC tablet 40 mgJump to med 40 mg, Oral, Nightly, First dose on 05/24/25 at 2100, Do not crush, chew, or split. Or pantoprazole (ProtoNix) 40 mg in sodium chloride (PF) 0.9 % 10 mL injection (CANCELED) 40 mg, IntraVENous, Administer over 2 Minutes, Nightly, First dose on 05/24/25 at 2100, Give only if unable to tolerate po. Group 3: ticagrelor (Brilinta) tablet 180 mg (COMPLETED) 180 mg, Oral, Once, On Gabrielle 06/05/25 at 1800, For 1 dose Followed by ticagrelor (Brilinta) tablet 90 mgJump to med 90 mg, Oral, 2 times daily, First dose on Mon06/06/25 at 0900, For 365 days Group 4: acetaminophen (Tylenol) tablet 650 mgJump to med 650 mg, Oral, Every 6 hours PRN, mild pain (1-3), fever, moderate pain (4-6), severe pain (7-10), For temp greater than 100.4 F (38 C), Starting on 05/24/25 at 0317, Maximum dose of acetaminophen is 4000 mg from all sources in 24 hours. Or acetaminophen (Tylenol) suppository 650 mgJump to med 650 mg, Rectal, Every 6 hours PRN, fever, For temp greater than 100.4 F (38 C), Starting on 05/24/25 at 0317, Administer if oral route cannot be used. Maximum dose of acetaminophen is 4000 mg from all sources in 24 hours. Group 5: ondansetron ODT (Zofran-ODT) disintegrating tablet 4 mgJump to med 4 mg, Oral, Every 8 hours PRN, nausea, vomiting, Starting on 05/23/25 at 2337, 1st Line. If inadequate response within 60 minutes, proceed to next-line agent or contact provider if no further options ordered. Patient should allow tablet to dissolve on tongue. Do not remove from blister pack until just before administering. Or ondansetron (Zofran) injection 4 mg (CANCELED) 4 mg, IntraVENous, Every 6 hours PRN, nausea, vomiting, Starting on Mon05/23/25 at 2337, 1st Line. Give IV if patient is unable to take orally. If inadequate response within 60 minutes, proceed to next-line agent or contact provider if no further options ordered. Group 6: prochlorperazine (Compazine) tablet 10 mgJump to med 10 mg, Oral, Every 6 hours PRN, nausea, vomiting, 2nd line, Starting on 05/24/25 at 1637 Or prochlorperazine (Compazine) injection 10 mgJump to med 10 mg, IntraVENous, Every 6 hours PRN, nausea, vomiting, Starting on 05/24/25 at 1637, Give IV if patient is unable to take orally. Give IM if patient is unable to take orally and does not have IV access. Or prochlorperazine (Compazine) suppository 25 mgJump to med 25 mg, Rectal, Every 12 hours PRN, nausea, vomiting, Starting on 05/24/25 at 1637, Give TX if patient is unable to take orally or receive by injection. FOR RECORDS PERTAINING TO PATIENTS WHO ARE OR HAVE BEEN ENROLLED IN A CHEMICAL DEPENDENCY/SUBSTANCEABUSE PROGRAM, SOME INFORMATION MAY BE OMITTED. This clinical summary was aggregated from multiple sources. Caution should be exercised in using it in the provision of clinical care. This summary normalizes information from multiple sources, and as a consequence, information in this document may materially change the coding, format and clinical context of patient data. In addition, data may be omitted in some cases. CLINICAL DECISIONS SHOULD BE BASED ON THE PRIMARY CLINICAL RECORDS. [facility] [employer] [facility]. provides no warranty or guarantee of the accuracy or completeness of information in this document.
[2025-09-10 08:53] LABS: Anion Gap 11 (7-18); BUN 27 mg/dL (4-19); BUN/Creat Ratio 13.7 RATIO (10-20); Calcium,Total 8.8 mg/dL (7.6-11.0); Carbon Dioxide 24.1 mmol/L (20.0-29.0); Chloride 106 mmol/L (96-106); Glucose 90 mg/dL (70-99); Magnesium 2.4 mg/dL (1.5-2.2); Potassium 3.6 mmol/L (3.5-5.1)
== END ==
LOC: OLS.ACW100 04:00
PROVIDERS: Referring Provider Family Medicine; Visit Provider Family Medicine
DX: R53.1 Weakness (principal); Z86.73 Personal history of transient ischemic attack (TIA), and cerebral infarction without residual deficits
CPT/HCPCS: 36415; 80048; 83735